=== PATIENT | male | born 1955 | race Caucasian/White ===

== ENCOUNTER 2020-07-06 16:10 | Emergency (ER) | payer OTHER, MEDICARE, BC, SELFPAY ==
--- NOTE | 2020-07-06 16:19 | ED_ITS ---
HPI - Dental/Oral General Chief complaint: Dental/Oral Stated complaint: mouth pain Time Seen by Provider: 07/06/20 16:18 History of Present Illness HPI Narrative: This is 64 years old male came in with mouth pain due to widespread decay of his teeth, patient is pending oral surgery in the next 10 days, patient could not see his dentist who advised him to come to the hospital for further evaluation and antibiotic and pain medication, patient stated that pain has been chronic for multiple months, pain is mix of throbbing and aching in his mouth, described as constant, and severe /, no radiation to the pain. Patient also with a history of COPD and running out of his albuterol patient is asking for prescription of albuterol and patient does not want x-rays or any further evaluation he just needs his prescription and go home. Related Data Previous Rx's Medication Instructions Recorded albuterol sulfate 1 inh INHALATION QID PRN #18 g 07/06/20 amoxicillin 500 mg PO Q8H #20 cap 07/06/20 oxycodone 5 mg PO BID PRN #14 tab 07/06/20 prednisone 20 mg PO BID #10 tab 07/06/20 Allergies Allergy/AdvReac Type Severity Reaction Status Date / Time No Known Allergies Allergy Mild UN Verified 07/06/20 16:20 Review of Systems Review of Systems: All other systems are reviewed and are negative Constitutional: Reports as per HPI and Reports no additional constitutional complaints Eyes: Reports as per HPI and Reports no additional eye complaints Reports system reviewed and no additional complaints, except as documented Cardiovascular: Reports as per HPI and Reports no additional cardiovascular complaints Respiratory: Reports as per HPI and Reports no additional respiratory complaints Gastrointestinal: Reports as per HPI and Reports no additional gastrointestinal complaints Genitourinary: Reports no additional female genitourinary complaints Musculoskeletal: Reports no additional musculoskeletal complaints Skin/Breast: Reports system reviewed and no additional complaints, except as docu Psychiatric: Reports no additional psychiatric complaints Endocrine: Reports no additional endocrine complaints Hematologic/Lymphatic: Reports no additional hematologic/lymphatic complaints Allergic/Immunologic: Reports no additional allergic/immunologic complaints Reports system reviewed and no additional complaints, except as documented and Reports Abnormal speech present [facility] Past Medical History Medical History (Updated 07/06/20 @ 16:31 by Eulalia Shepherd MD) COPD (chronic obstructive pulmonary disease) Pneumonia Pneumothorax Umbilical hernia Social History Social History Alcohol intake: former Smoking Status: Current every day smoker Smoked in Last 30 Days: Yes Use of substances other than those prescribed or required for medical reasons: No Advance Directives: No Advance Directives Information Provided: Yes Physical Exam Vital Signs: Vital Signs: Last Vital Signs Temp 98.0 F 07/06/20 16:21 Pulse 88 07/06/20 16:21 Resp 18 07/06/20 16:21 BP 129/62 07/06/20 16:21 Pulse Ox 98 07/06/20 16:21 Body Mass Index 21.5 Vital signs have been reviewed as normal and appeared to be correct. Blood pressure normal. Heart rate normal. Respiration rate normal. Temperature normal. Oxygen saturation normal. Appearance: Alert. Oriented X3. No acute distress. Head: Normal external exam. Normocephalic. Atraumatic. No Alberto signs noted. No raccoon eyes noted, there is a widespread dental decay, with tenderness over the gum no discrete fluctuation or abscess in the gum. Eyes: PERRLA. EOMI. Conjunctiva and sclera normal. Eyelids normal. ENT: EAC normal. TM's Normal. Pharynx normal. Uvula midline. Moist mucous membranes. No trismus noted. No drooling noted. No muffled voice noted. Neck: Normal inspection. Neck supple. FROM. No adenopathy. Thyroid Normal. No meningeal signs. No neck mass noted. CVS: Normal heart rate and rhythm. Heart sound normal. No murmurs noted. Pulses normal throughout. Respiratory: No respiratory distress. Painless inspiration. Breath sounds normal. Prolonged expiration, positive mild diffuse expiratory wheezes. Chest nontender. No accessory muscle usage noted or decreased air movement noted. Abdomen: Soft and nontender. Bowel sounds normal in all 4 quadrants. No distention noted. No organomegaly noted. No visible injury noted. Back: No CVA tenderness. Full range of motion noted. Skin: Skin warm and dry. Normal skin color. Normal skin turgor. No rashes/lesions/lacerations noted. Extremities: No lower extremity edema. Extremities exhibit normal range of motion. Extremities nontender. Neuro: Oriented X 3. No motor deficit. No sensory deficit. Reflexes normal. MDM - Dental/Oral MDM Narrative Medical decision making narrative: Dental pain due to widespread dental decay, patient is undergoing oral surgery in 10 days required antibiotic and pain medication. Patient also has a longstanding history of COPD exam is consistent with mild COPD exacerbation and patient is running out of his albuterol patient is refusing x-ray or any further evaluation. Discharge Plan Discharge Clinical Impression: Dental infection, Acute exacerbation of chronic obstructive pulmonary disease Patient Disposition: Home, Self-Care Instructions: COPD (Chronic Obstructive Pulmonary Disease) (ED), Gingivostomatitis (ED) Additional Instructions: Follow-up with your dentist in 7 days. Follow-up with your PCP. Prescriptions: New prednisone 20 mg tablet 20 mg PO BID Qty: 10 RF: 0 albuterol sulfate 90 mcg/actuation HFA aerosol inhaler 1 inh inhalation QID PRN (Reason: shortness of breath or wheezing) Qty: 18 RF: 0 amoxicillin 500 mg capsule 500 mg PO Q8H Qty: 20 RF: 0 oxycodone 5 mg tablet 5 mg PO BID PRN (Reason: pain) Qty: 14 RF: 0
[2020-07-06 16:21] VITALS: BP 129/62; BP 158/87; PULSE 88; PULSE 98; RESP 18; TEMP 36.7; O2SAT 98; BMI 21.5
[2020-07-06] MEDS: Amoxicillin 500 MG CAPSULE PO (17:10)
== END 2020-07-06 17:40 | disposition home or self-care (01) ==
LOC: HO.ED 16:38
PROVIDERS: Emergency Provider Emergency Medicine
DX: K04.7 Periapical abscess without sinus (principal); J44.1 Chronic obstructive pulmonary disease with (acute) exacerbation; F17.200 Nicotine dependence, unspecified, uncomplicated; Z71.6 Tobacco abuse counseling; Z79.899 Other long term (current) drug therapy
CPT/HCPCS: 99283

== ENCOUNTER 2020-07-08 12:41 | Emergency (ER) | payer MEDICARE, BC, OTHER, SELFPAY ==
[2020-07-08 12:44] VITALS: BP 150/74; PULSE 120; RESP 30; O2SAT 100; BMI 20.7
--- NOTE | 2020-07-08 13:01 | XR_ITS ---
EXAMINATION: XR CHEST CLINICAL INFORMATION: Shortness of breath COMPARISON: Chest radiographs 10/06/2019, 02/05/2019. TECHNIQUE: Portable upright AP x2 views of the chest was obtained. FINDINGS: There is hyperinflation/COPD. The vascularity is normal. There is no airspace consolidation or definite groundglass opacity. Some minor scarring left lateral base is stable. No pneumothorax or pleural reaction. The heart is normal in size. The hilar and mediastinal contours are normal. No acute bony abnormality. XR/XR chest 1V IMPRESSION: Hyperinflation/COPD. No acute intrathoracic disease.
[2020-07-08] MEDS: Albuterol/Iprat 2.5/0.5MG 3 ML AMPUL.NEB 10 ML INHALE ×2 (13:16→14:47)
[2020-07-08] MEDS: predniSONE 20 MG TABLET 60 MG PO (13:18)
--- NOTE | 2020-07-08 13:23 | ED_ITS ---
HPI - SOB/Dyspnea General Chief Complaint: Dyspnea Stated Complaint: SOB X'S HOURS,NO FEVER Time Seen by Provider: 07/08/20 13:00 Source: EMS Mode of arrival: EMS History of Present Illness HPI Narrative: 64-year-old male with medical history of COPD, pneumonia, pneumothorax, schizophrenia, chronic vertigo, alcohol abuse BIBA for worsening SOB x a few days, found to be 78% on room air on EMS arrival. Patient does not use home O2. Patient reports productive cough, and SOB, refusing IV via EMS and with us, only agreeable to updraft by EMS. Denies CP, fever, chills, exposure to COVID-19 Related Data Previous Rx's Medication Instructions Recorded albuterol sulfate 1 inh INHALATION QID PRN #18 g 07/06/20 amoxicillin 500 mg PO Q8H #20 cap 07/06/20 oxycodone 5 mg PO BID PRN #14 tab 07/06/20 prednisone 20 mg PO BID #10 tab 07/06/20 Allergies Allergy/AdvReac Type Severity Reaction Status Date / Time No Known Allergies Allergy Mild UN Verified 07/06/20 16:20 Review of Systems Review of Systems: Constitutional: No Weight loss, No Fever, No Chills ENT/Mouth: No Nasal Congestion, No Sinus Pain, No Hoarseness, No sore throat, No Swallowing Difficulty Cardiovascular: No Chest Pain, + SOB, +Dyspnea on Exertion Respiratory: +Cough, No Sputum, No Wheezing, +Dyspnea Gastrointestinal: No Nausea, No Vomiting, No Diarrhea, No Constipation, No Abdominal pain Musculoskeletal: No joint pain, No Myalgias, No Joint Swelling Skin: No Skin Lesions, No rash Yes all other systems are reviewed and are negative FOR[facility]LY [facility] Past Medical History Attestation statement: The following information was validated with the patient. Source: old records reviewed and nursing notes reviewed Medical History (Updated 07/07/20 @ 00:04 by Background Danohemi) COPD (chronic obstructive pulmonary disease) Pneumonia Pneumothorax Umbilical hernia Social History Social History Alcohol intake: former Smoking Status: Current every day smoker Use of substances other than those prescribed or required for medical reasons: No Advance Directives: No Advance Directives Information Provided: Yes Physical Exam Vital Signs: Vital Signs: Last Vital Signs Pulse 115 H 07/08/20 16:11 Resp 20 07/08/20 16:11 BP 150/74 H 07/08/20 12:44 Pulse Ox 95 07/08/20 16:11 Body Mass Index 20.7 Const: Other: refusing care General: alert and acute distress severe Orientation/consciousness: patient oriented x3 Limitations: no limitations HENMT: Head: Yes normal to inspection Ears: hearing grossly normal bilaterally General nose exam: Normal external nose present Face and si nus: Yes normal facial exam Eyes: General: appearance normal, both eyes and all related structures EOM: EOMs intact bilaterally Resp: Effort & Inspection: labored, respiratory distress, no stridor, tachypneic and tripod positioning Auscultation: wheezes throughout and diminished lung sounds diffuse Cardio: Rate: tachycardic GI: Inspection: Yes normal to inspection Palpation (GI): Soft to palpation, nontender, no guarding and not rigid : General: Yes no CVA tenderness Back/Spine/Pelvis: Back: no CVA tenderness Skin: Rashes: no rashes Wounds: no wounds Neuro: General: patient oriented x3 Gait exam (Neuro): Normal gait present Extrem: General: Yes normal to inspection and Yes no pedal edema Course Course Course Narrative: -upon arrival to ED would like to place patient on BiPAP, however he is refusing all treatment, refusing IV, pulling face mask off, only requesting water -Case discussed with Dr. Benedict who also evaluated/spoke to patient, patient is A&O x3, not altered, not hypoxic, competent to make own decisions, stressed importance of IV medications/breathing treatment and BIPAP, but patient only agreeable to DuoNeb and resistent to p.o. Prednisone, still refusing all other care. Had to be convinced to take PO Prednisone -1325--patient's speaking on phone with BOX LINING MACHINE OPERATOR/friend, Dr. Benedict spoke with pts friend/BOX LINING MACHINE OPERATOR to try to convince patient to agree to care which was unsuccessful. He has increased/worsening work of breathing, sating 90-93%, tachypneic, retracting, talking in short sentences. Dr. Benedict discussed with patient DNR/DNI status, he stated he does not want chest compressions, does not want to be on a ventilator, and is refusing BIPAP. Patient is aware he can if not treated properly. He stated let him go. Still competent to make his own decisions at this time. > this conversation was discussed with multiple witnesses including myself, and patient's ED nurse -Dr. Benedict spoke with patient's healthcare proxy, Ana Hackett, she read patient's living will, which states patient does not want CPR/to be on a ventilator, and agreeable to comfortable measures even if it shortens his life --6102-patient received 2 hour long DuoNebs, appears more comfortable at present, satting 94-95% on RA, still with accessory muscle use. Better air movement on re-evaluation. Discussed admission with patient which he is not ag reeable to. Discussed will have to sign out AMA, understand that he could if he leaves. Patient already has prescription for prednisone at home from ED evaluation 2 days ago MDM - SOB/Dyspnea MDM Narrative Medical decision making narrative: 64-year-old male with medical history of COPD, pneumonia, pneumothorax, schizophrenia, chronic vertigo, alcohol abuse BIBA for worsening SOB x a few days, found to be 78% on room air on EMS arrival. On exam tachypneic, tachycardic, satting 92-94% on RA/with breathing treatments, decreased breath sounds/diffuse wheezing throughout. Concern for COPD exacerbation vs potential COVID-19 vs pneumonia. Low concern for ACS /CHF Plan: Patient only agreeable to DuoNeb, CXR, and p.o. prednisone Discharge Plan Discharge Prescriptions: No Action prednisone 20 mg tablet 20 mg PO BID Qty: 10 RF: 0 albuterol sulfate 90 mcg/actuation HFA aerosol inhaler 1 inh inhalation QID PRN (Reason: shortness of breath or wheezing) Qty: 18 RF: 0 amoxicillin 500 mg capsule 500 mg PO Q8H Qty: 20 RF: 0 oxycodone 5 mg tablet 5 mg PO BID PRN (Reason: pain) Qty: 14 RF: 0
--- NOTE | 2020-07-08 14:22 | PC.NURSE ---
pt received updraft and chest xray. pt has not been cooperative with medical needs. rn and md have explained to pt need for IV/labs/meds but pt refuses. took PO prednisone. continues, to appear SOB. o2 sat at this time is 94% on room air. will continue to monitor.
[2020-07-08 16:11] VITALS: PULSE 115; RESP 20; O2SAT 95
--- NOTE | 2020-07-08 16:11 | PC.NURSE ---
pt breathing improved, no longer using neck muscles when taking breaths . maintaining o2 sat of 95% room air. pt waiting dispo.
[2020-07-08] MEDS: Albuterol Sulfate (0.083%) 2.5 MG/3 ML VIAL.NEB 5 MG INHALE (16:35)
[2020-07-08 17:36] VITALS: BP 130/54; PULSE 122; RESP 26; O2SAT 96
== END 2020-07-08 18:51 | disposition left against medical advice (07) ==
PROVIDERS: Emergency Provider Emergency Medicine Emergency Medical Services; PCP Emergency Medicine Emergency Medical Services
DX: R50.9 Fever, unspecified (principal); J44.9 Chronic obstructive pulmonary disease, unspecified; Z79.899 Other long term (current) drug therapy; F17.200 Nicotine dependence, unspecified, uncomplicated; Z71.6 Tobacco abuse counseling
CPT/HCPCS: 71045; 94640; 94644; 94645; 99284

== ENCOUNTER → 2021-03-03 14:41 | Outpatient (BNVA) | payer MEDICARE, BC, OTHER, SELFPAY | PROVIDERS: PCP Emergency Medicine Emergency Medical Services; Visit Provider Surgery | DX: K40.90 Unilateral inguinal hernia, without obstruction or gangrene, not specified as recurrent (principal) | CPT/HCPCS: 99202 ==

== ENCOUNTER 2021-03-12 01:18 | Emergency (ER) | payer OTHER, MEDICARE, BC, SELFPAY ==
[2021-03-12 01:41] VITALS: BP 118/92; PULSE 78; RESP 16; TEMP 37.2; O2SAT 97; BMI 25.8
--- NOTE | 2021-03-12 02:13 | ED.ALCOHOL ---
HPI - Alcohol General Chief Complaint: ETOH/Substance Use Stated Complaint: ETOH INTOX,FOUND ON GROUND BY [facility] Time Seen by Provider: 03/12/21 02:13 Source: patient Mode of arrival: EMS History of Present Illness HPI narrative: 65-year-old male with known alcohol dependence as well as COPD and hypertension his brought in by EMS after patient was found sleeping in a parking lot. Patient states that he has had 4 drinks and denies any other current complaints at this time. Related Data Home Medications Medication Instructions Recorded Confirmed benzonatate 100 mg capsule 100 mg PO TID 03/03/21 budesonide-formoterol HFA 160 INHALATION 03/03/21 mcg-4.5 mcg/actuation aerosol inhaler buspirone 7.5 mg tablet 7.5 mg PO BID 03/03/21 folic acid 1 mg tablet 1 mg PO DAILY 03/03/21 gabapentin 100 mg capsule 0 mg PO 03/03/21 hydrochlorothiazide 12.5 mg capsule 12.5 mg PO DAILY 03/03/21 ibuprofen 600 mg tablet 600 mg PO Q6H PRN 03/03/21 potassium chloride 10 mEq 10 meq PO DAILY 03/03/21 tablet,extended release tamsulosin 0.4 mg capsule 0.4 mg PO DAILY 03/03/21 tiotropium bromide 2.5 2 puff INHALATION DAILY 03/03/21 mcg/actuation mist for inhalation Previous Rx's Medication Instructions Recorded albuterol sulfate 1 inh INHALATION QID PRN #18 g 07/06/20 amoxicillin 500 mg PO Q8H #20 cap 07/06/20 oxycodone 5 mg PO BID PRN #14 tab 07/06/20 prednisone 20 mg PO BID #10 tab 07/06/20 Allergies Allergy/AdvReac Type Severity Reaction Status Date / Time No Known Allergies Allergy Mild UN Verified 03/03/21 14:49 Review of Systems Review of Systems: Pertinent positives and negatives as stated in HPI 10 point review of systems is otherwise negative. FORMERLY [facility], [facility] Past Medical History Source: nursing notes reviewed Medical History COPD (chronic obstructive pulmonary disease) Pneumonia Pneumothorax Right inguinal hernia Umbilical hernia Social History Social History Alcohol intake: current Alcohol intake frequency: does not drink Alcohol type: beer Physical Exam Vital Signs: Vital Signs: Last Vital Signs Temp 98.9 F 03/12/21 01:41 Pulse 72 03/12/21 02:56 Resp 18 03/12/21 02:56 BP 110/49 L 03/12/21 02:56 Pulse Ox 96 03/12/21 02:56 Body Mass Index 25.8 VITAL SIGNS: Reviewed. GENERAL: Cachectic, chronic illness, smells of alcohol. HEAD: Normocephalic/atraumatic EYES: PERRLA, EOMI OROPHARYNX: no oral lesions noted, posterior pharynx clear NECK: Supple, no adenopathy LUNGS: Normal breath sounds. No adventitious sounds or accessory muscle use. SpO2<97> CARDIOVASCULAR: Regular rate and rhythm without noted murmurs ABDOMEN: Soft, non-tender, non-distended with bowel sounds. SKIN: Inspection of the skin reveals no rashes NEUROLOGIC: Alert and oriented x 4. Strength and sensation to light touch were grossly intact x 4. Course Course Course Narrative: 65-year-old male with history and clinical presentation consistent with alcohol intoxication, but does have history of COPD. Review of all investigations otherwise without acute findings and on re-evaluation patient is found to be clinically sober and has a safe ride from a friend. He was discharged in stable condition. MDM - Alcohol Lab Data Result diagrams: 03/12/21 02:48 03/12/21 02:48 Labs: Lab Results 03/12/21 03/12/21 03/12/21 Range/Units 02:48 02:48 02:48 WBC 11.9 H (4.8-10.8) X10*3/uL RBC 4.07 L (4.60-5.80) X10*6/uL Hgb 13.3 L (14.0-18.0) g/dl Hct 37.5 L (42-52) % MCV 92.1 (80-98) fL MCH 32.7 (27.0-33.0) pg MCHC 35.5 (31.0-36.0) g/dl RDW 13.6 (11.0-16.0) % Plt Count 273 (160-400) X10*3/uL MPV 8.9 L (9.4-12.4) fL Immature Gran % (Auto) 0.5 H (0.0-0.4) % Neut % (Auto) 69.2 (45-73) % Lymph % (Auto) 21.7 (20-40) % Baca % (Auto) 6.1 (2-11) % Eos % (Auto) 2.0 (0-4) % Baso % (Auto) 0.5 (0-2) % Lymph # (Auto) 2.6 (1.2-4.9) X10*3/uL [place] # (Auto) 0.7 (0.1-1.2) X10*3/uL Eos # (Auto) 0.2 (0.0-0.4) X10*3/uL Baso # (Auto) 0.1 (0.0-0.2) X10*3/uL Abs Immat Gran (auto) 0.06 H (0.00-0.03) X10*3/uL Absolute Neuts (auto) 8.2 (2.0-8.3) X10*3/uL Absolute Nucleated RBC 0.000 (0.0-0.012) X10*3/uL Nucleated RBC % (auto) 0.0 (0.0-0.2) /100WBC VBG pH (7.32-7.43) VBG pCO2 mmHg VBG pO2 mmHg VBG HCO3 (22-26) mmol/L VBG O2 Saturation % VBG Base Excess mmol/L Sodium 133 L (135-145) mmol/L Potassium 3.9 (3.3-5.1) mmol/L Chloride 101 (96-108) mmol/L Carbon Dioxide 21 L (22-29) mmol/L Anion Gap 15 (12-20) BUN 4 L (9-16) mg/dL Creatinine 0.70 (0.5-1.4) mg/dL Estim Creat Clear Calc 92.4 Estimated GFR > 60 Random Glucose 98 (60-115) mg/dL Calcium 8.6 (8.4-10.2) mg/dL Total Bilirubin 0.4 (0.0-1.0) mg/dL AST 20 (5-37) U/L ALT 15 (0-40) U/L Alkaline Phosphatase 99 (39-117) U/L Total Protein 5.8 L (6.5-8.0) g/dL Albumin 3.5 (3.5-5.0) g/dL Ethyl Alcohol mg/dL COVID-19 ([facility]) Negative (Negative) COVID-19 Clin Com See Note 03/12/21 03/12/21 Range/Units 02:48 02:51 WBC (4.8-10.8) X10*3/uL RBC (4.60-5.80) X10*6/uL Hgb (14.0-18.0) g/dl Hct (42-52) % MCV (80-98) fL MCH (27.0-33.0) pg MCHC (31.0-36.0) g/dl RDW (11.0-16.0) % Plt Count (160-400) X10*3/uL MPV (9.4-12.4) fL Immature Gran % (Auto) (0.0-0.4) % Neut % (Auto) (45-73) % Lymph % (Auto) (20-40) % Baca % (Auto) (2-11) % Eos % (Auto) (0-4) % Baso % (Auto) (0-2) % Lymph # (Auto) (1.2-4.9) X10*3/uL [place] # (Auto) (0.1-1.2) X10*3/uL Eos # (Auto) (0.0-0.4) X10*3/uL Baso # (Auto) (0.0-0.2) X10*3/uL Abs Immat Gran (auto) (0.00-0.03) X10*3/uL Absolute Neuts (auto) (2.0-8.3) X10*3/uL Absolute Nucleated RBC (0.0-0.012) X10*3/uL Nucleated RBC % (auto) (0.0-0.2) /100WBC VBG pH 7.43 (7.32-7.43) VBG pCO2 29 mmHg VBG pO2 203 mmHg VBG HCO3 20 L (22-26) mmol/L VBG O2 Saturation 99.0 % VBG Base Excess -2.9 mmol/L Sodium (135-145) mmol/L Potassium (3.3-5.1) mmol/L Chloride (96-108) mmol/L Carbon Dioxide (22-29) mmol/L Anion Gap (12-20) BUN (9-16) mg/dL Creatinine (0.5-1.4) mg/dL Estim Creat Clear Calc Estimated GFR Random Glucose (60-115) mg/dL Calcium (8.4-10.2) mg/dL Total Bilirubin (0.0-1.0) mg/dL AST (5-37) U/L ALT (0-40) U/L Alkaline Phosphatase (39-117) U/L Total Protein (6.5-8.0) g/dL Albumin (3.5-5.0) g/dL Ethyl Alcohol 270 mg/dL COVID-19 ([facility]) (Negative) COVID-19 Clin Com Discharge Plan Discharge Clinical Impression: Alcohol intoxication Patient Disposition: Home, Self-Care Instructions: Alcohol Intoxication (ED) Additional Instructions: Return to the ER for acute worsening of symptoms. Prescriptions: No Action prednisone 20 mg tablet 20 mg PO BID Qty: 10 RF: 0 albuterol sulfate 90 mcg/actuation HFA aerosol inhaler 1 inh inhalation QID PRN (Reason: shortness of breath or wheezing) Qty: 18 RF: 0 amoxicillin 500 mg capsule 500 mg PO Q8H Qty: 20 RF: 0 oxycodone 5 mg tablet 5 mg PO BID PRN (Reason: pain) Qty: 14 RF: 0 benzonatate 100 mg capsule 100 mg PO TID RF: 0 budesonide-formoterol 160-4.5 mcg/actuation HFA aerosol inhaler inhalation RF: 0 Spiriva Respimat 2.5 mcg/actuation mist 2 puff inhalation DAILY RF: 0 potassium chloride 10 mEq tablet extended release 10 meq PO DAILY RF: 0 gabapentin 100 mg capsule 0 mg PO RF: 0 folic acid 1 mg tablet 1 mg PO DAILY RF: 0 hydrochlorothiazide 12.5 mg capsule 12.5 mg PO DAILY RF: 0 tamsulosin 0.4 mg capsule 0.4 mg PO DAILY RF: 0 buspirone 7.5 mg tablet 7.5 mg PO BID RF: 0 ibuprofen 600 mg tablet 600 mg PO Q6H PRNRF: 0
[2021-03-12 02:55] LABS: MANUAL DIFF FLAG NO
[2021-03-12 02:56] VITALS: BP 110/49; PULSE 72; RESP 18; O2SAT 96
[2021-03-12 02:56] LABS: Basophils Absolute Auto 0.1 X10*3/uL (0.0-0.2); Basophils Percent Auto 0.5 % (0-2); Eosinophils Absolute Auto 0.2 X10*3/uL (0.0-0.4); Hematocrit 37.5 % (42-52); Hemoglobin 13.3 g/dl (14.0-18.0); Imm Gran Abs Auto 0.06 X10*3/uL (0.00-0.03); Imm Gran Pct Auto 0.5 % (0.0-0.4); Lymphocytes Absolute Auto 2.6 X10*3/uL (1.2-4.9); Lymphocytes Percent Auto 21.7 % (20-40); Mean Corpuscular HGB Conc 35.5 g/dl (31.0-36.0); Mean Corpuscular Hemoglobin 32.7 pg (27.0-33.0); Mean Corpuscular Volume 92.1 fL (80-98); Mean Platelet Volume 8.9 fL (9.4-12.4); Monocytes Absolute Auto 0.7 X10*3/uL (0.1-1.2); Monocytes Percent Auto 6.1 % (2-11); Neutrophils Absolute Auto 8.2 X10*3/uL (2.0-8.3); Neutrophils Percent Auto 69.2 % (45-73); Platelet Count 273 X10*3/uL (160-400); Red Blood Count 4.07 X10*6/uL (4.60-5.80); Red Cell Distribution Width 13.6 % (11.0-16.0); White Blood Count 11.9 X10*3/uL (4.8-10.8)
[2021-03-12 03:00] LABS: Venous Blood Gas Refer to POC result
[2021-03-12 03:00] LABS: VBG Base Excess -2.9 mmol/L; VBG HCO3 20 mmol/L (22-26); VBG pCO2 29 mmHg; VBG pH 7.43 (7.32-7.43); VBG pO2 203 mmHg
[2021-03-12 03:22] LABS: Ethanol 270 mg/dL
[2021-03-12 03:23] LABS: COVID-19 Test Negative (Negative)
[2021-03-12 03:27] LABS: Alanine Aminotransferase 15 U/L (0-40); Albumin Level 3.5 g/dL (3.5-5.0); Alkaline Phosphatase 99 U/L (39-117); Anion Gap 15 (12-20); Aspartate Amino Transferase 20 U/L (5-37); Bilirubin Total 0.4 mg/dL (0.0-1.0); Blood Urea Nitrogen 4 mg/dL (9-16); Calcium 8.6 mg/dL (8.4-10.2); Carbon Dioxide 21 mmol/L (22-29); Chloride 101 mmol/L (96-108); Creatinine Clr Calc Pharmacy 92.4; Estimated Glomerular Filt Rate > 60; Glucose Random 98 mg/dL (60-115); Potassium 3.9 mmol/L (3.3-5.1); Sodium 133 mmol/L (135-145); Total Protein 5.8 g/dL (6.5-8.0)
== END 2021-03-12 06:26 | disposition home or self-care (01) ==
LOC: HO.ED 06:20
PROVIDERS: Emergency Provider Student in an Organized Health Care Education/Training Program
DX: F10.229 Alcohol dependence with intoxication, unspecified (principal); Y90.8 Blood alcohol level of 240 mg/100 ml or more; J44.9 Chronic obstructive pulmonary disease, unspecified; I10 Essential (primary) hypertension; Z79.899 Other long term (current) drug therapy; Z20.822 Contact with and (suspected) exposure to COVID-19
CPT/HCPCS: 36415; 80053; 82077; 82803; 85025; 87635; 99284

== ENCOUNTER 2021-03-18 07:08 | Emergency (ER) | payer OTHER, SELFPAY ==
[2021-03-18] VITALS (9 sets, daily range): BP systolic 158–166; BP diastolic 63–71; PULSE 80–111; RESP 16–25; O2SAT 92–98; BMI 17.7
--- NOTE | ~2021-03-18 | CT_ITS ---
EXAMINATION: CT KNEE WITHOUT CONTRAST, LEFT CLINICAL INFORMATION: Left tibia-fibula radiographs, same day. COMPARISON: Left knee radiographs TECHNIQUE:A spiral CT scan of the left knee was obtained without administration of IV contrast. Contiguous transverse, coronal and sagittal images were reconstructed. This CT examination was performed using dose optimization techniques as appropriate, variously including the following: * Automated exposure control * Adjustment of mA and/or kV according to patient size (this includes techniques or standardized protocols for targeted exams where dose is matched to indication/reason for exam; i.e. extremities or head) * Use of iterative reconstruction technique FINDINGS: Left knee is imaged in flexion. There is comminuted fracture of the tibial tuberosity. There is a gap of approximately 5 mm at the fracture site (5:79) secondary to distraction at the fracture site. At the medial margin of the transverse component of the comminuted tibial tuberosity fracture line, there is extension of obliquely oriented nondisplaced fracture line along the medial cortex of the proximal tibia extending from anterior to posterior (5:62-78). The knee is approximated. The patella is approximated. Proximal tibiofibular joint is approximated. Bones are osteopenic. No soft tissue gas. No soft tissue collection. ACL and PCL are grossly intact. Extensor mechanism appears intact. Menisci are poorly characterized. Given flexion of the knee MRI may be considered to evaluate for meniscal injury. Mild vascular calcifications. CT/CT knee LT wo con IMPRESSION: Left knee: Distracted comminuted fracture through the tibial tuberosity with extension of nondisplaced fracture line along the medial cortex of the proximal tibia extending anterior to posterior. Osteopenia. Flexion of the knee. No knee joint effusion. Vascular calcifications.
--- NOTE | ~2021-03-18 | XR_ITS ---
EXAMINATION: LEFT TIBIA AND FIBULA. CLINICAL INFORMATION: Uneventful to move leg. History of fall. COMPARISON: None TECHNIQUE: 2 views left tibia and fibula. 1 new left knee FINDINGS: There is mildly displaced fracture anterior tibial tuberosity with mild anterior soft tissue swelling.. No additional fractures seen involving tibia and fibula. Ankle mortise and subtalar joints are normal. Left knee: There is no abnormal joint effusion. There is fracture anterior tibial tubercle. The distal femur and the patella is normal with a small anterior superior patellar enthesophyte. XR/XR tibia fibula LT 2V IMPRESSION: Mildly displaced fracture anterior tibial tubercle. There is mild soft tissue swelling. No additional fractures seen. No abnormal knee joint effusion or fracture involving the distal femur or patella. There is anterior superior patellar enthesophyte.
--- NOTE | ~2021-03-18 | XR_ITS ---
EXAMINATION: LEFT TIBIA AND FIBULA. CLINICAL INFORMATION: Uneventful to move leg. History of fall. COMPARISON: None TECHNIQUE: 2 views left tibia and fibula. 1 new left knee FINDINGS: There is mildly displaced fracture anterior tibial tuberosity with mild anterior soft tissue swelling.. No additional fractures seen involving tibia and fibula. Ankle mortise and subtalar joints are normal. Left knee: There is no abnormal joint effusion. There is fracture anterior tibial tubercle. The distal femur and the patella is normal with a small anterior superior patellar enthesophyte. XR/XR knee LT 2V IMPRESSION: Mildly displaced fracture anterior tibial tubercle. There is mild soft tissue swelling. No additional fractures seen. No abnormal knee joint effusion or fracture involving the distal femur or patella. There is anterior superior patellar enthesophyte.
--- NOTE | ~2021-03-18 | CT_ITS ---
EXAMINATION: CT HEAD/BRAIN WITHOUT CONTRAST CLINICAL INFORMATION: Trauma COMPARISON: December 24, 2007 and cervical spine of February 05, 2019 TECHNIQUE: CT scanning from base of skull to vertex performed without IV contrast administration. This CT examination was performed using dose optimization techniques as appropriate, variously including the following: *Automated exposure control *Adjustment of mA and/or kV according to patient size (this includes techniques or standardized protocols for targeted exams where dose is matched to indication/reason for exam; i.e. extremities or head) *Use of iterative reconstruction technique DLP: 687 mGy-cm. FINDINGS: There is motion artifact present degrading study. There is mild prominence of the ventricles, sulci, and cisterns. No abnormal extra-axial fluid collection or intracranial hemorrhage is seen. No significant mass effect or midline structure shift is evident. There is a large amount of periventricular white matter low density consistent with microangiopathy. CT/CT cervical spine wo con IMPRESSION: No acute intracranial abnormality. 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 EXAMINATION: CT OF THE CERVICAL SPINE CLINICAL INFORMATION: Trauma COMPARISON: February 05, 2019. TECHNIQUE: Thin helical images with sagittal and coronal reformats. This CT examination was performed using dose optimization techniques as appropriate, variously including the following: *Automated exposure control *Adjustment of mA and/or kV according to patient size (this includes techniques or standardized protocols for targeted exams where dose is matched to indication/reason for exam; i.e. extremities or head) *Use of iterative reconstruction technique DOSE: DLP 687 mGy-cm FINDINGS: There is motion artifact present degrading study. The vertebral alignment is normal. The atlantoaxial and atlanto-occipital articulations are normal. No fracture. No intrinsic bony abnormality. No abnormal prevertebral soft tissue swelling. Paraspinal muscle planes intact. There is significant cervical spondylosis C3-C7 with disc space narrowing marginal sclerosis and prominent spurring. There is 2 mm subluxation of C2 anterior to C3 however this may be related to some degree of motion artifact. There is also some anterior subluxation of C6 on this C5 which may be related to motion artifact as well. There is spurring of the joints of [place] causing some anterior neural foraminal encroachment at the C5-C6 and C6-C7 levels bilaterally There are emphysematous changes seen within the apices bilaterally. Carotid artery calcification present. There is degenerative change of the left temporomandibular joint. Pterygoid plates intact. IMPRESSION: No acute cervical spine fracture. Significant cervical spondylosis C3-C7.
--- NOTE | 2021-03-18 07:33 | ED.FALL ---
HPI - Fall General Chief Complaint: ETOH/Substance Use Stated Complaint: fall last night, left knee pain Time Seen by Provider: 03/18/21 07:31 History of Present Illness HPI Narrative: Patient is a 65-year-old male positive history of ETOH. Patient fell after drinking. Complaining of pain to the left knee. Question if he hit his head. Also coughing upper respiratory symptoms. Patient has a long history of smoking. Had not had his coronavirus vaccine. No focal weakness. No chest pain. No diaphoresis. Positive history of COPD. Long history of smoking. No chest pain Related Data Home Medications Medication Instructions Recorded Confirmed benzonatate 100 mg capsule 100 mg PO TID 03/03/21 03/18/21 budesonide-formoterol HFA 160 2 puff INHALATION BID 03/03/21 03/18/21 mcg-4.5 mcg/actuation aerosol inhaler folic acid 1 mg tablet 1 mg PO DAILY 03/03/21 03/18/21 gabapentin 100 mg capsule 100 mg PO BID 03/03/21 03/18/21 tamsulosin 0.4 mg capsule 0.4 mg PO DAILY 03/03/21 03/18/21 tiotropium bromide 2.5 2 puff INHALATION DAILY 03/03/21 03/18/21 mcg/actuation mist for inhalation acamprosate 333 mg PO TID 03/18/21 03/18/21 acetaminophen 500 mg PO TID PRN 03/18/21 03/18/21 baclofen 1 tab PO QID 03/18/21 03/18/21 buspirone 7.5 mg PO BID 03/18/21 03/18/21 clotrimazole 1 appl TOPICAL BID 03/18/21 03/18/21 cyanocobalamin (vitamin B-12) 500 mcg PO BID 03/18/21 03/18/21 docusate sodium 100 mg PO DAILY PRN 03/18/21 03/18/21 guaifenesin 600 mg PO BID 03/18/21 03/18/21 hydroxyzine HCl 10 mg PO DAILY PRN 03/18/21 03/18/21 olanzapine 10 mg PO BEDTIME 03/18/21 03/18/21 psyllium 1 tsp PO DAILY 03/18/21 03/18/21 thiamine HCl (vitamin B1) 100 mg PO DAILY 03/18/21 03/18/21 trazodone 100 mg PO BEDTIME PRN 03/18/21 03/18/21 Previous Rx's Medication Instructions Recorded albuterol sulfate 1 inh INHALATION QID PRN #18 g 07/06/20 Allergies Allergy/AdvReac Type Severity Reaction Status Date / Time No Known Allergies Allergy Mild UN Verified 03/03/21 14:49 Review of Systems Review of Systems: Positive coughing upper respiratory symptoms Positive pain to the left knee PMFSH Past Medical History Attestation statement: The following information was validated with the patient. Medical History COPD (chronic obstructive pulmonary disease) Pneumonia Pneumothorax Right inguinal hernia Umbilical hernia Social History Social History Alcohol intake: current Alcohol intake frequency: a few times a week Alcohol type: beer Use of substances other than those prescribed or required for medical reasons: Unable to respond Advance Directives: Yes Advance Directives Information Provided: Yes Advance Directives on File: No Physical Exam Vital Signs: Vital Signs: Last Vital Signs Pulse 96 03/18/21 12:33 Resp 20 03/18/21 12:33 BP 166/71 H 03/18/21 12:33 Pulse Ox 94 03/18/21 12:33 Body Mass Index 17.7 Appearance: Alert. Oriented X3. No acute distress. Eyes: Pupils equal, round and reactive to light. ENT: Pharynx normal. Neck: Normal inspection. Neck supple. No lymph nodes noted. No crepitus. No posterior C-spine tenderness elicited on palpation. CVS: Normal heart rate and rhythm. Pulses normal. Normal S1 and S2 Respiratory: No respiratory distress. Breath sounds normal. No Wheezing. No rales Abdomen: Soft and nontender. No rigidity. No distention. good BS x4 Skin: Positive swelling to the left knee limited range of motion Extremities: No lower extremity edema. Neurovascular intact to all extremities. No Lacerations. No Rash Neuro: Oriented X 3. No motor deficit. No sensory deficit. Moving all extermities. No slurred speech MDM - Fall MDM Narrative Medical decision making narrative: Accidental fall while patient was intoxicated. X-rays showed in tibial tuberosity fracture. Patient unable to get excellent films a CT scan was done. It showed approximately the same. The x-rays reviewed by Orthopedics. Weightbear as tolerated. Patient is to be placed in a knee immobilizer. Patient has a long history of alcohol abuse. Lives alone. Will need additional help. Physical therapy consulted case management consulted. Patient will need to be placed in a rehab unit. After discussing with Orthopedics patient is to follow up with Dr. Mendiola in approximately 1 week. Lab Data Result diagrams: 03/18/21 12:31 03/18/21 12:31 Labs: Lab Results 03/18/21 03/18/21 03/18/21 Range/Units 12:31 12:31 12:31 WBC 13.0 H (4.8-10.8) X10*3/uL RBC 4.31 L (4.60-5.80) X10*6/uL Hgb 13.9 L (14.0-18.0) g/dl Hct 39.9 L (42-52) % MCV 92.6 (80-98) fL MCH 32.3 (27.0-33.0) pg MCHC 34.8 (31.0-36.0) g/dl RDW 13.7 (11.0-16.0) % Plt Count 271 (160-400) X10*3/uL MPV 9.2 L (9.4-12.4) fL Immature Gran % (Auto) 0.4 (0.0-0.4) % Neut % (Auto) 75.7 H (45-73) % Lymph % (Auto) 15.2 L (20-40) % [place] % (Auto) 6.2 (2-11) % Eos % (Auto) 2.0 (0-4) % Baso % (Auto) 0.5 (0-2) % Lymph # (Auto) 2.0 (1.2-4.9) X10*3/uL [place] # (Auto) 0.8 (0.1-1.2) X10*3/uL Eos # (Auto) 0.3 (0.0-0.4) X10*3/uL Baso # (Auto) 0.1 (0.0-0.2) X10*3/uL Abs Immat Gran (auto) 0.05 H (0.00-0.03) X10*3/uL Absolute Neuts (auto) 9.9 H (2.0-8.3) X10*3/uL Absolute Nucleated RBC 0.000 (0.0-0.012) X10*3/uL Nucleated RBC % (auto) 0.0 (0.0-0.2) /100WBC Sodium 137 (135-145) mmol/L Potassium 4.1 (3.3-5.1) mmol/L Chloride 106 (96-108) mmol/L Carbon Dioxide 22 (22-29) mmol/L Anion Gap 13 (12-20) BUN 5 L (9-16) mg/dL Creatinine 0.69 (0.5-1.4) mg/dL Estim Creat Clear Calc 79.9 Estimated GFR > 60 Random Glucose 89 (60-115) mg/dL Calcium 8.7 (8.4-10.2) mg/dL Ethyl Alcohol mg/dL COVID-19 ([facility]) Negative (Negative) COVID-19 Clin Com See Note 03/18/21 Range/Units 12:31 WBC (4.8-10.8) X10*3/uL RBC (4.60-5.80) X10*6/uL Hgb (14.0-18.0) g/dl Hct (42-52) % MCV (80-98) fL MCH (27.0-33.0) pg MCHC (31.0-36.0) g/dl RDW (11.0-16.0) % Plt Count (160-400) X10*3/uL MPV (9.4-12.4) fL Immature Gran % (Auto) (0.0-0.4) % Neut % (Auto) (45-73) % Lymph % (Auto) (20-40) % [place] % (Auto) (2-11) % Eos % (Auto) (0-4) % Baso % (Auto) (0-2) % Lymph # (Auto) (1.2-4.9) X10*3/uL [place] # (Auto) (0.1-1.2) X10*3/uL Eos # (Auto) (0.0-0.4) X10*3/uL Baso # (Auto) (0.0-0.2) X10*3/uL Abs Immat Gran (auto) (0.00-0.03) X10*3/uL Absolute Neuts (auto) (2.0-8.3) X10*3/uL Absolute Nucleated RBC (0.0-0.012) X10*3/uL Nucleated RBC % (auto) (0.0-0.2) /100WBC Sodium (135-145) mmol/L Potassium (3.3-5.1) mmol/L Chloride (96-108) mmol/L Carbon Dioxide (22-29) mmol/L Anion Gap (12-20) BUN (9-16) mg/dL Creatinine (0.5-1.4) mg/dL Estim Creat Clear Calc Estimated GFR Random Glucose (60-115) mg/dL Calcium (8.4-10.2) mg/dL Ethyl Alcohol 43 mg/dL COVID-19 ([facility]) (Negative) COVID-19 Clin Com Discharge Plan Discharge Clinical Impression: Avulsion fracture of tuberosity of tibia, Alcohol intoxication Prescriptions: No [facility] albuterol sulfate 90 mcg/actuation HFA aerosol inhaler 1 inh inhalation QID PRN (Reason: shortness of breath or wheezing) Qty: 18 RF: 0 hydroxyzine HCl 10 mg tablet 10 mg PO DAILY PRN (Reason: Anxiety) RF: 0 guaifenesin 600 mg Tablet Extended Release 600 mg PO BID RF: 0 acetaminophen 500 mg Tablet 500 mg PO TID PRN (Reason: Pain) RF: 0 cyanocobalamin (vitamin B-12) 500 mcg Tablet 500 mcg PO BID RF: 0 psyllium Powder 1 tsp PO DAILY RF: 0 trazodone 100 mg Tablet 100 mg PO BEDTIME PRN (Reason: Insomnia) RF: 0 baclofen 10 mg tablet 1 tab PO QID RF: 0 buspirone 7.5 mg Tablet 7.5 mg PO BID RF: 0 docusate sodium 100 mg Tablet 100 mg PO DAILY PRN (Reason: Constipation) RF: 0 acamprosate 333 mg Tablet,Delayed Release (Dr/Ec) 333 mg PO TID RF: 0 clotrimazole 1 % Solution 1 appl TOPICAL BID RF: 0 thiamine HCl (vitamin B1) 100 mg Tablet 100 mg PO DAILY RF: 0 olanzapine 10 mg Tablet 10 mg PO BEDTIME RF: 0 benzonatate 100 mg capsule 100 mg PO TID RF: 0 budesonide-formoterol 160-4.5 mcg/actuation HFA aerosol inhaler 2 puff inhalation BID RF: 0 Spiriva Respimat 2.5 mcg/actuation mist 2 puff inhalation DAILY RF: 0 gabapentin 100 mg capsule 100 mg PO BID RF: 0 folic acid 1 mg tablet 1 mg PO DAILY RF: 0 tamsulosin 0.4 mg capsule 0.4 mg PO DAILY RF: 0
--- NOTE | 2021-03-18 07:59 | PC.NURSE ---
patient refusing labs and COVID test at this time. dr lemus.
--- NOTE | 2021-03-18 10:19 | PC.NURSE ---
pt continues to refuse lab work at this time, frequently yelling out at staff for needs.
[2021-03-18 12:36] LABS: MANUAL DIFF FLAG NO
[2021-03-18 12:38] LABS: Basophils Absolute Auto 0.1 X10*3/uL (0.0-0.2); Basophils Percent Auto 0.5 % (0-2); Eosinophils Absolute Auto 0.3 X10*3/uL (0.0-0.4); Hematocrit 39.9 % (42-52); Hemoglobin 13.9 g/dl (14.0-18.0); Imm Gran Abs Auto 0.05 X10*3/uL (0.00-0.03); Imm Gran Pct Auto 0.4 % (0.0-0.4); Lymphocytes Percent Auto 15.2 % (20-40); Mean Corpuscular HGB Conc 34.8 g/dl (31.0-36.0); Mean Corpuscular Hemoglobin 32.3 pg (27.0-33.0); Mean Corpuscular Volume 92.6 fL (80-98); Mean Platelet Volume 9.2 fL (9.4-12.4); Monocytes Absolute Auto 0.8 X10*3/uL (0.1-1.2); Monocytes Percent Auto 6.2 % (2-11); Neutrophils Absolute Auto 9.9 X10*3/uL (2.0-8.3); Neutrophils Percent Auto 75.7 % (45-73); Platelet Count 271 X10*3/uL (160-400); Red Blood Count 4.31 X10*6/uL (4.60-5.80); Red Cell Distribution Width 13.7 % (11.0-16.0)
[2021-03-18 12:52] LABS: COVID-19 Test Negative (Negative); IDNOW Serial# 9DD0AD1C
--- NOTE | 2021-03-18 12:55 | PC.NURSE ---
Addendum entered by Tsering Mccullough 03/18/21 12:57: knee immobilizer placed on patient left leg. Original Note: patient agreeable to have labs drawn, labs drawn by this RN. patient had episode of SOB, requesting to use his inhaler, used an symptoms improved. talked to patient and explained that he can not be dc home safely and most likely will need placement. case management aware. patient agreeable.
[2021-03-18 13:02] LABS: Ethanol 43 mg/dL
[2021-03-18 13:04] LABS: Anion Gap 13 (12-20); Blood Urea Nitrogen 5 mg/dL (9-16); Calcium 8.7 mg/dL (8.4-10.2); Carbon Dioxide 22 mmol/L (22-29); Chloride 106 mmol/L (96-108); Creatinine Clr Calc Pharmacy 79.9; Estimated Glomerular Filt Rate > 60; Glucose Random 89 mg/dL (60-115); Potassium 4.1 mmol/L (3.3-5.1); Sodium 137 mmol/L (135-145)
[2021-03-18] MEDS: HYDROmorphone HCl 0.5 MG/0.5 ML SYRINGE IM (14:40)
--- NOTE | 2021-03-18 14:56 | PHA.MEDREC ---
Pharmacy Consult ? Medication Reconciliation Pharmacy has completed the medication reconciliation. There are no remarkable issues for provider's attention. Medication list verified with [place] [facility]. Regla Arceo, JoseD
--- NOTE | 2021-03-18 16:47 | MHC.CM.ED ---
CM met with pt. Pt is thin and well kept. Pt speaks in a loud voice with short, to the point sentences. Pt lives in hotel with room mate. [facility], and [employer] and [employer]. Pt not sure what provides the [employer] or meals on wheels. Pt has a tibial avulsion fx. Pt has pending PT evaluation for STR. Pt has [facility] insurance/ Medicare and care at [place]. Call to Misa Solares, critical care rn of the [place] to determine services eligibility, message left. Expect return call in the am/ Pt is requesting [facility] if STR is recommended. Referral pending [facility] eligibility. D/C plan is STR. Transportation by wheelchair van. CM will follow for d/c needs.
[2021-03-18] MEDS: Baclofen 10 MG TABLET PO ×2 (17:12→20:01)
[2021-03-18] MEDS: busPIRone HCl 5 MG TABLET 7.5 MG PO (17:12)
[2021-03-18 19:36] LABS: Glucose Urine UA NEG (NEG); Leukocyte Esterase Urine NEG (NEG); Nitrite Urine NEG (NEG); PH 6.5 (5.0-8.0); Urine Blood NEG (NEG); Urine Ketones 15 MG/DL (NEG); Urine Protein NEG (NEG-TRACE)
[2021-03-18 19:39] LABS: Appearance Urine CLEAR; Color Urine YELLOW
[2021-03-18] MEDS: oxyCODONE HCl Immed Release 5 MG TABLET PO (19:55)
[2021-03-18] MEDS: Benzonatate 100 MG CAPSULE PO (20:01)
[2021-03-18] MEDS: guaiFENesin LA 600 MG TAB.ER.12H PO (20:01)
[2021-03-18] MEDS: Gabapentin 100 MG CAPSULE PO (20:01)
[2021-03-18] MEDS: Docusate Sodium 100 MG CAPSULE PO (21:58)
[2021-03-18] MEDS: Cyanocobalamin (Vitamin B-12) 500 MCG TABLET PO (21:59)
[2021-03-18] MEDS: OLANZapine 10 MG TABLET PO (21:59)
--- NOTE | 2021-03-18 22:33 | PC.NURSE ---
pt requesting pain meds for pain in left leg. (Jak) notified. no new orders at this time as patient is not due for next dose of pain meds at this time when this nurse went back to inform patient of when next dose can be given, pt asleep in recliner chair. no distress noted at this time. call mcgraw in reach.
[2021-03-18] MEDS: LORazepam 1 MG TABLET PO (23:53)
[2021-03-19] VITALS (8 sets, daily range): BP systolic 139–158; BP diastolic 62–68; PULSE 75–106; RESP 16–22; TEMP 36.8; O2SAT 95–100
[2021-03-19] MEDS: oxyCODONE HCl Immed Release 5 MG TABLET PO ×4 (04:08→23:28)
[2021-03-19] MEDS: Albuterol Sulfate 90 MCG 8 GM INHALER 1 PUFF INHALE (04:09)
--- NOTE | 2021-03-19 04:12 | PC.NURSE ---
pt awake using bedside urinal, requesting pain medication for 9/10 left leg pain and albuterol for wheezing/shortness of breath. pt reminded to keep nasal cannula on. prn oxycodone given per OCT prn albuterol given per OCT warm blanket also given, call mcgraw in reach. no distress noted at this time.
[2021-03-19] MEDS: Folic Acid 1 MG TABLET PO (09:10)
[2021-03-19] MEDS: guaiFENesin LA 600 MG TAB.ER.12H PO ×2 (09:10→20:34)
[2021-03-19] MEDS: Gabapentin 100 MG CAPSULE PO ×2 (09:10→20:34)
[2021-03-19] MEDS: Baclofen 10 MG TABLET PO (09:10)
[2021-03-19] MEDS: Thiamine HCL 100 MG TABLET PO (09:11)
[2021-03-19] MEDS: busPIRone HCl 5 MG TABLET 7.5 MG PO ×2 (09:11→20:35)
[2021-03-19] MEDS: Benzonatate 100 MG CAPSULE PO ×3 (09:11→20:34)
--- NOTE | 2021-03-19 10:25 | PC.NURSE ---
pt assisted back into stretcher, able to move around w stand by assist, one assist used to reposition self in bed. pt appears brash, speaks very loudly in conversation. otherwise cooperative w care. assisted moving personal effects to bedside as well as assisted pt in using cell phone. wctm for dc needs.
[2021-03-19] MEDS: Acetaminophen 325 MG TABLET PO ×2 (11:56→16:17)
--- NOTE | 2021-03-19 15:54 | PC.NURSE ---
pt medication appears to have been misplaced. pt appears to have had documented medication administrations of hs med, med was approved by pharmacy and returned. pt does not seems to have medication available at bedside, thinks it may have been misplaced over night.
--- NOTE | 2021-03-19 19:31 | PC.NURSE ---
REPORT TAKEN FROM RAFAEL WARNER, FIRST CONTACT WITH PT, PT RESTING IN BED SKIN PWD RESPIRATIONS EVEN UNLABORED. IMMBOLIZER INTACT TO LLE. +CMS. CM BEDSEARCH CONTINUES.
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
--- NOTE | 2021-03-19 20:14 | PC.NURSE ---
CHANG DYE TANK TENDER AT BEDSIDE TO UPDATE PT ON STATUS.CALL OUT TO SISTER- HCP TO DISCUSS PLACEMENT. AWAITING CALLABCK, IF NO RESPONSE CM WILL PROCEED WITH REFERRALS.
[2021-03-19] MEDS: OLANZapine 10 MG TABLET PO (20:34)
[2021-03-19] MEDS: Cyanocobalamin (Vitamin B-12) 500 MCG TABLET PO (20:35)
[2021-03-19] MEDS: Tamsulosin HCL 0.4 MG CAPSULE PO (20:35)
--- NOTE | 2021-03-19 21:08 | MHC.CM.ED ---
CM placed 10 referrals locally, as HCP did not return call and pt will not participate in choices. Will wait for bed offer and present to pt for acceptance. CM to follow for d/c needs.
[2021-03-19] MEDS: Albuterol Sulfate (0.083%) 2.5 MG/3 ML VIAL.NEB INHALE (23:46)
--- NOTE | 2021-03-20 00:32 | PC.NURSE ---
PT AGAIN RESTING IN BED EYES CLOSED SKIN PWD RESPIRATIONS EVEN UNLABORED. UPDRAFT PREVIOUSLY ADMINISTERED FOR REPORTS OF DIFFICULTY COUGHING UP PHLEGM. PT REPORTED SOME RELIEF. HOT TEA ALSO GIVEN PER REQUEST FOR COMFORT. CM BEDSEARCH CONTINUES.
[2021-03-20] MEDS: Acetaminophen 325 MG TABLET PO ×2 (03:45→13:06)
--- NOTE | 2021-03-20 04:07 | PC.NURSE ---
PT WAKING UP OUT OF SLEEP REPORTING LEFT LEG PAIN, MEDICATED WITH TYLENOL PRN. BACK TO SLEEP INSTANTLY. EYES CLOSED, SKIN PWD RESPIRATIONS EVEN UNLABORED. +CMS TO LEFT FOOT. WILL CONTINUE TO MONITOR FOR ADDITIONAL NEEDS.
--- NOTE | 2021-03-20 05:48 | PC.NURSE ---
PT UP TO BEDSIDE USING URINAL INDEPENDENTLY. FRESH WATER PITCHER GIVEN. REQUESTING PRN PAIN MEDS- REMINDED NOT YET DUE FOR MEDS. CM BEDSEARCH CONTINUES.
[2021-03-20] MEDS: oxyCODONE HCl Immed Release 5 MG TABLET PO ×2 (07:09→13:09)
[2021-03-20] MEDS: Thiamine HCL 100 MG TABLET PO (08:01)
[2021-03-20] MEDS: busPIRone HCl 5 MG TABLET 7.5 MG PO (08:01)
[2021-03-20] MEDS: Benzonatate 100 MG CAPSULE PO (08:01)
[2021-03-20] MEDS: Cyanocobalamin (Vitamin B-12) 500 MCG TABLET PO (08:01)
[2021-03-20] MEDS: guaiFENesin LA 600 MG TAB.ER.12H PO (08:01)
[2021-03-20] MEDS: Folic Acid 1 MG TABLET PO (08:02)
[2021-03-20] MEDS: Gabapentin 100 MG CAPSULE PO (08:02)
[2021-03-20] MEDS: Fluticasone/Vilanterol 200/25 BLST.W.DEV 1 PUFF INHALE (08:13)
[2021-03-20] MEDS: Albuterol Sulfate 90 MCG 8 GM INHALER 1 PUFF INHALE (08:20)
--- NOTE | 2021-03-20 10:23 | MHC.CM.ED ---
Review of ED notes: pt has been cooperative and showing no signs of ETOH w/d. Met with pt to discuss transfer to STR: pt informed that [facility] did not have bed availability but that [facility] extended an offer. Pt accepted frequently reminding me of his leg pain and inability to walk. [facility]ing for [facility] to [facility] then [facility] this afternoon via [facility]. Will await confirmation for tx by STR. ED care team updated on d/c plan
[2021-03-20 12:41] VITALS: RESP 18
== END 2021-03-20 14:14 | disposition skilled nursing facility (03) ==
PROVIDERS: Emergency Provider Emergency Medicine Emergency Medical Services
DX: S82.152A Displaced fracture of left tibial tuberosity, initial encounter for closed fracture (principal); W19.XXXA Unspecified fall, initial encounter; F10.120 Alcohol abuse with intoxication, uncomplicated; Y90.2 Blood alcohol level of 40-59 mg/100 ml; M25.562 Pain in left knee; R00.0 Tachycardia, unspecified; R06.02 Shortness of breath; I10 Essential (primary) hypertension; Z20.822 Contact with and (suspected) exposure to COVID-19; Y93.9 Activity, unspecified; Y92.9 Unspecified place or not applicable; Y99.9 Unspecified external cause status
CPT/HCPCS: 36415; 70450; 72125; 73560; 73590; 73700; 80048; 81003; 82077; 85025; 87635; 94640; 96372; 97162; 99285; J1170

== ENCOUNTER 2021-04-06 08:11 | Outpatient (REF) | payer MEDICARE, BC, SELFPAY | END 2021-04-06 08:12 | disposition home or self-care (01) | LOC: HO.HOSX 08:11 | PROVIDERS: Visit Provider Physician Assistant | DX: Z13.89 Encounter for screening for other disorder (principal) ==

== ENCOUNTER 2021-05-04 08:07 | Outpatient (REF) | payer OTHER, SELFPAY ==
--- NOTE | ~2021-05-04 | XR_ITS ---
EXAMINATION: XR KNEE, LEFT CLINICAL INFORMATION: Left knee pain. COMPARISON: Multiple priors, most recent left knee CT dated 03/18/2021. TECHNIQUE: 4 views of the left knee. FINDINGS: Redemonstration of a proximal tibial fracture including a transverse component as well as a tibial tuberosity component in near anatomic alignment with mild interval new bone/callus formation. Degree of osseous bridging difficult to evaluate on plain radiographs. No new fracture or dislocation. No joint space narrowing or marginal osteophytes. Atherosclerotic calcifications. XR/XR knee LT 3V IMPRESSION: Slightly comminuted proximal tibial fracture in near-anatomic alignment.
== END 2021-05-04 08:08 | disposition home or self-care (01) ==
LOC: HO.HOSX 08:07
PROVIDERS: Visit Provider Physician Assistant
DX: S82.152A Displaced fracture of left tibial tuberosity, initial encounter for closed fracture (principal)
CPT/HCPCS: 73562; 99202

== ENCOUNTER → 2021-05-24 14:38 | Outpatient (BNVA) | payer OTHER, SELFPAY | PROVIDERS: Visit Provider Orthopaedic Surgery | DX: S82.152D Displaced fracture of left tibial tuberosity, subsequent encounter for closed fracture with routine healing (principal) | CPT/HCPCS: 99212 ==

== ENCOUNTER 2021-07-12 11:56 | Outpatient (REF) | payer OTHER, SELFPAY ==
--- NOTE | ~2021-07-12 | XR_ITS ---
EXAMINATION: XR KNEE, LEFT CLINICAL INFORMATION: Pain. COMPARISON: Left knee radiographs dated from 05/04/2021. TECHNIQUE: Two views of the left knee. FINDINGS: Comminuted fracture of the proximal tibia is redemonstrated in near-anatomic alignment. There are signs of bony healing with decreased lucency of the fracture lines and increased sclerosis of the fracture borders. No new fractures. No joint effusion. Extensive vascular calcifications. XR/XR knee LT 2V IMPRESSION: Healing proximal tibial fracture in unchanged near anatomic alignment.
== END 2021-07-12 11:57 | disposition home or self-care (01) ==
LOC: HO.HOSX 11:56
PROVIDERS: Visit Provider Orthopaedic Surgery
DX: S82.152D Displaced fracture of left tibial tuberosity, subsequent encounter for closed fracture with routine healing (principal)
CPT/HCPCS: 73560; 99212

== ENCOUNTER 2021-09-11 23:25 | Emergency (ER) | payer MEDICARE, BC, MEDICAID, SELFPAY ==
[2021-09-11 23:39] VITALS: BP 148/92; BP 150/70; PULSE 88; PULSE 89; RESP 16; TEMP 36.8; O2SAT 95; O2SAT 98; BMI 17.7
--- NOTE | 2021-09-11 23:53 | ED.DENTAL ---
HPI - Dental/Oral General Chief complaint: Eye Problems Stated complaint: R FACIAL PAIN/INJURY,NO KNOWN INJURY/TRAUMA Time Seen by Provider: 09/11/21 23:53 Source: patient Mode of arrival: ambulatory Limitations: no limitations History of Present Illness HPI Narrative: Patient with chronic caries teeth planning for implantation noticed swelling of the right cheek for last 2 days and increased pain in the right upper gum area no fever no chills Related Data Home Medications Medication Instructions Recorded Confirmed benzonatate 100 mg capsule 100 mg PO TID 03/03/21 03/18/21 budesonide-formoterol HFA 160 2 puff INHALATION BID 03/03/21 03/18/21 mcg-4.5 mcg/actuation aerosol inhaler folic acid 1 mg tablet 1 mg PO DAILY 03/03/21 03/18/21 gabapentin 100 mg capsule 100 mg PO BID 03/03/21 03/18/21 tamsulosin 0.4 mg capsule 0.4 mg PO DAILY 03/03/21 03/18/21 tiotropium bromide 2.5 2 puff INHALATION DAILY 03/03/21 03/18/21 mcg/actuation mist for inhalation acamprosate 333 mg tablet,delayed 333 mg PO TID 03/18/21 03/18/21 release acetaminophen 500 mg tablet 500 mg PO TID PRN 03/18/21 03/18/21 buspirone 7.5 mg tablet 7.5 mg PO BID 03/18/21 03/18/21 clotrimazole 1 % topical solution 1 appl TOPICAL BID 03/18/21 03/18/21 cyanocobalamin (vitamin B-12) 500 500 mcg PO BID 03/18/21 03/18/21 mcg tablet docusate sodium 100 mg tablet 100 mg PO DAILY PRN 03/18/21 03/18/21 guaifenesin 600 mg tablet,extended 600 mg PO BID 03/18/21 03/18/21 release hydroxyzine HCl 10 mg tablet 10 mg PO DAILY PRN 03/18/21 03/18/21 olanzapine 10 mg tablet 10 mg PO BEDTIME 03/18/21 03/18/21 psyllium 1 tsp PO DAILY 03/18/21 03/18/21 thiamine HCl (vitamin B1) 100 mg 100 mg PO DAILY 03/18/21 03/18/21 tablet Previous Rx's Medication Instructions Recorded albuterol sulfate 90 mcg/actuation 1 inh INHALATION QID PRN #18 g 07/06/20 aerosol inhaler amoxicillin 875 mg-potassium 1 tab PO BID #20 tab 09/11/21 clavulanate 125 mg tablet (Augmentin) tramadol 50 mg tablet 50 mg PO Q6H PRN #20 tab 09/11/21 Allergies Allergy/AdvReac Type Severity Reaction Status Date / Time tree and shrub pollen Allergy Mild Rash Verified 05/24/21 14:49 Review of Systems Review of Systems: Yes all other systems are reviewed and are negative [facility] Past Medical History Medical History COPD (chronic obstructive pulmonary disease) Pneumonia Pneumothorax Right inguinal hernia Umbilical hernia Social History Social History Alcohol intake: current Alcohol intake frequency: a few times a week Alcohol type: beer Advance Directives: Yes Advance Directives Information Provided: Yes Advance Directives on File: Yes Advance Directives Date on File: 03/22/21 Current occupational status: 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 Tender swelling of the right cheek area Teeth image: 1. Tenderness in the gum area without any fluctuancy no pus discharge edentulous Neck: Neck: Yes full ROM and Yes no lymphadenopathy Chest: Chest palpation & inspection: normal inspection of the chest Resp: Effort & Inspection: normal respiratory effort Auscultation: clear to auscultation bilaterally Cardio: Palpation: normal PMI Rate: regular rate Heart sounds: S1 normal heart sound present and S2 normal heart sound present Discharge Plan Discharge Clinical Impression: Cellulitis of face Patient Disposition: Home, Self-Care Instructions: Cellulitis (ED) Additional Instructions: Take antibiotic as prescribed Follow-up with your dentist Report to PCP/80 if not better Prescriptions: New amoxicillin-pot clavulanate [Augmentin] 875-125 mg tablet 1 tab PO BID Qty: 20 RF: 0 tramadol 50 mg tablet 50 mg PO Q6H PRN (Reason: pain) Qty: 20 RF: 0 No Action albuterol sulfate 90 mcg/actuation HFA aerosol inhaler 1 inh inhalation QID PRN (Reason: shortness of breath or wheezing) Qty: 18 RF: 0 hydroxyzine HCl 10 mg tablet 10 mg PO DAILY PRN (Reason: Anxiety) RF: 0 guaifenesin 600 mg Tablet Extended Release 600 mg PO BID RF: 0 acetaminophen 500 mg Tablet 500 mg PO TID PRN (Reason: Pain) RF: 0 cyanocobalamin (vitamin B-12) 500 mcg Tablet 500 mcg PO BID RF: 0 psyllium Powder 1 tsp PO DAILY RF: 0 buspirone 7.5 mg Tablet 7.5 mg PO BID RF: 0 docusate sodium 100 mg Tablet 100 mg PO DAILY PRN (Reason: Constipation) RF: 0 acamprosate 333 mg Tablet,Delayed Release (Dr/Ec) 333 mg PO TID RF: 0 clotrimazole 1 % Solution 1 appl TOPICAL BID RF: 0 thiamine HCl (vitamin B1) 100 mg Tablet 100 mg PO DAILY RF: 0 olanzapine 10 mg Tablet 10 mg PO BEDTIME RF: 0 benzonatate 100 mg capsule 100 mg PO TID RF: 0 budesonide-formoterol 160-4.5 mcg/actuation HFA aerosol inhaler 2 puff inhalation BID RF: 0 Spiriva Respimat 2.5 mcg/actuation mist 2 puff inhalation DAILY RF: 0 gabapentin 100 mg capsule 100 mg PO BID RF: 0 folic acid 1 mg tablet 1 mg PO DAILY RF: 0 tamsulosin 0.4 mg capsule 0.4 mg PO DAILY RF: 0 Interventions: ED Discharge Assessment Last Done: 09/12/21 00:26 Discharge Date/Time: 09/12/21 00:32
[2021-09-12] MEDS: Amoxicillin/Potassium Clav 875 MG TABLET PO (00:10)
[2021-09-12] MEDS: traMADoL HCL 50 MG TABLET PO (00:11)
[2021-09-12] MEDS: Milk of Magnesia 30 ML ORAL.SUSP PO (00:11)
== END 2021-09-12 00:32 | disposition home or self-care (01) ==
PROVIDERS: Emergency Provider Internal Medicine
DX: L03.211 Cellulitis of face (principal); K02.9 Dental caries, unspecified
CPT/HCPCS: 99283; 99284

== ENCOUNTER 2021-09-15 17:09 | Emergency (ER) | payer MEDICARE, BC, SELFPAY ==
--- NOTE | ~2021-09-15 | XR_ITS ---
EXAMINATION: CHEST AND KUB. CLINICAL INFORMATION: COPD, SOB. COMPARISON: None TECHNIQUE: Chest one view. KV one view. FINDINGS: Chest: The lungs are hyperinflated but clear of acute process. Heart size and pulmonary vascularity is normal. Mild blunting of left CP angle and elevation of lateral left hemidiaphragm. It is stable compared 07/08/2020. There is mild deformity left posterior fifth rib. No other bony abnormality seen. KUB: There is moderate scattered stool in the colon without any significant distention. The small bowel loops are normal caliber. No organomegaly. Mild spondylosis L1-L2, L2-L3 and L3-L4 disc levels. XR/XR chest 1V IMPRESSION: Hyperinflated lungs with chronic elevated left lateral hemidiaphragm, unchanged to 07/08/2020. Moderate constipation.
--- NOTE | ~2021-09-15 | XR_ITS ---
EXAMINATION: CHEST AND KUB. CLINICAL INFORMATION: COPD, SOB. COMPARISON: None TECHNIQUE: Chest one view. KV one view. FINDINGS: Chest: The lungs are hyperinflated but clear of acute process. Heart size and pulmonary vascularity is normal. Mild blunting of left CP angle and elevation of lateral left hemidiaphragm. It is stable compared 07/08/2020. There is mild deformity left posterior fifth rib. No other bony abnormality seen. KUB: There is moderate scattered stool in the colon without any significant distention. The small bowel loops are normal caliber. No organomegaly. Mild spondylosis L1-L2, L2-L3 and L3-L4 disc levels. XR/XR KUB IMPRESSION: Hyperinflated lungs with chronic elevated left lateral hemidiaphragm, unchanged to 07/08/2020. Moderate constipation.
[2021-09-15 18:03] VITALS: BP 129/75; BP 131/70; PULSE 100; PULSE 103; RESP 24; TEMP 37.1; O2SAT 98; O2SAT 99; BMI 17.7
--- NOTE | 2021-09-15 18:08 | ED.SOB ---
HPI - SOB/Dyspnea General Chief Complaint: Abdominal Pain Stated Complaint: CONSTIPATION/COPD EXACERBATION Time Seen by Provider: 09/15/21 17:29 Source: patient Mode of arrival: ambulatory History of Present Illness HPI Narrative: 64-year-old male with medical history of COPD, pneumonia, pneumothorax, schizophrenia, chronic vertigo, alcohol abuse BIBA complaining of constipation times a couple days reports passing hard small stools with increased straining. Reports lower abdominal/rectal pain. Also reports chronic COPD/emphysema with acute on chronic SOB and cough. Denies fever, chills, CP, nausea/vomiting, rectal bleeding, melena, dysuria/hematuria, pedal edema. MD elicited complaint: shortness of breath Pertinent past history: COPD Related Data Home Medications Medication Instructions Recorded Confirmed benzonatate 100 mg capsule 100 mg PO TID 03/03/21 03/18/21 budesonide-formoterol HFA 160 2 puff INHALATION BID 03/03/21 03/18/21 mcg-4.5 mcg/actuation aerosol inhaler folic acid 1 mg tablet 1 mg PO DAILY 03/03/21 03/18/21 gabapentin 100 mg capsule 100 mg PO BID 03/03/21 03/18/21 tamsulosin 0.4 mg capsule 0.4 mg PO DAILY 03/03/21 03/18/21 tiotropium bromide 2.5 2 puff INHALATION DAILY 03/03/21 03/18/21 mcg/actuation mist for inhalation acamprosate 333 mg tablet,delayed 333 mg PO TID 03/18/21 03/18/21 release acetaminophen 500 mg tablet 500 mg PO TID PRN 03/18/21 03/18/21 buspirone 7.5 mg tablet 7.5 mg PO BID 03/18/21 03/18/21 clotrimazole 1 % topical solution 1 appl TOPICAL BID 03/18/21 03/18/21 cyanocobalamin (vitamin B-12) 500 500 mcg PO BID 03/18/21 03/18/21 mcg tablet docusate sodium 100 mg tablet 100 mg PO DAILY PRN 03/18/21 03/18/21 guaifenesin 600 mg tablet,extended 600 mg PO BID 03/18/21 03/18/21 release hydroxyzine HCl 10 mg tablet 10 mg PO DAILY PRN 07/22/21 07/22/21 olanzapine 10 mg tablet 10 mg PO BEDTIME 03/18/21 03/18/21 psyllium 1 tsp PO DAILY 03/18/21 03/18/21 thiamine HCl (vitamin B1) 100 mg 100 mg PO DAILY 03/18/21 03/18/21 tablet Previous Rx's Medication Instructions Recorded albuterol sulfate 90 mcg/actuation 1 inh INHALATION QID PRN #18 g 07/06/20 aerosol inhaler amoxicillin 875 mg-potassium 1 tab PO BID #20 tab 09/11/21 clavulanate 125 mg tablet (Augmentin) tramadol 50 mg tablet 50 mg PO Q6H PRN #20 tab 09/11/21 Allergies Allergy/AdvReac Type Severity Reaction Status Date / Time tree and shrub pollen Allergy Mild Rash Verified 05/24/21 14:49 Review of Systems Review of Systems: Constitutional: No Fever, No Chills, No Fatigue, No Malaise ENT/Mouth: No Ear Pain, No Nasal Congestion, No sore throat, No Rhinorrhea Eyes: No Eye Pain, No Discharge, No Vision Changes Cardiovascular: No Chest Pain, +chronic SOB, No Dyspnea on Exertion, No Orthopnea, No Edema, No Palpitations Respiratory: +chronic Cough, No Sputum, No Dyspnea Gastrointestinal: No Nausea, No Vomiting, No Diarrhea, + Constipation, + Abdominal pain, +rectal pain Genitourinary: No Dysuria, No Urinary Frequency, No Flank Pain Musculoskeletal: No joint pain, No Myalgias, No Joint Swelling Skin: No Skin Lesions, No rash Neuro: No Weakness, No Numbness, No Headache Yes all other systems are reviewed and are negative [facility] Past Medical History Attestation statement: The following information was validated with the patient. 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 Physical Exam Vital Signs: Vital Signs: Last Vital Signs Temp 98.8 F 09/15/21 18:03 Pulse 103 H 09/15/21 18:03 Resp 24 H 09/15/21 18:03 BP 129/75 09/15/21 18:03 Pulse Ox 98 09/15/21 18:03 BMI result Body Mass Index 17.7 Const: General: cooperative and ill appearing chronically Orientation/consciousness: patient oriented x3 Limitations: no limitations HENMT: Head: Yes normal to inspection and Yes atraumatic Ears: hearing grossly normal bilaterally General nose exam: Normal external nose present Face and sinus: Yes normal facial exam Eyes: General: appearance normal, both eyes and all related structures EOM: EOMs intact bilaterally Neck: Neck: Yes normal visual inspection and Yes no meningeal signs Resp: Effort & Inspection: normal respiratory effort Auscultation: diminished lung sounds diffuse Cardio: Rate: regular rate and tachycardic Heart sounds: S1 normal heart sound present and S2 normal heart sound present GI: Inspection: Yes normal to inspection and No distended Palpation (GI): Soft to palpation, nontender, no guarding and not rigid Skin: Rashes: no rashes Wounds: no wounds Neuro: General: patient oriented x3, gait normal, tone normal, moves all extremities and no meningeal signs Gait exam (Neuro): Normal gait present Extrem: General: Yes normal to inspection Course Course Course Narrative: -1808--patient refusing DuoNeb, reported to respiratory therapist I do not need that shit -1830--patient refusing EKG XR chest 1V / XR KUB IMPRESSION: Hyperinflated lungs with chronic elevated left lateral hemidiaphragm, unchanged to 07/08/2020. ? Moderate constipation. >>1915-- patient had successful BM in the emergency department. Reports symptomatic improvement / resolution. Discussed worrisome signs and symptoms and strict return precautions. Discussed with patient would like to have obtain labs / give DuoNeb to treat COPD however patient refusing. Will sign out AMA MDM - SOB/Dyspnea MDM Narrative Medical decision making narrative: 64-year-old male with medical history of COPD, pneumonia, pneumothorax, schizophrenia, chronic vertigo, alcohol abuse BIBA complaining of constipation x a couple days reports passing hard small stools with increased straining. Also reports chronic COPD/emphysema with acute on chronic SOB and cough. On exam tachycardic, tachypneic, decreased air movement throughout lung forte, chronically ill-appearing, abdomen soft/nontender, nondistended, no rebound or guarding. Patient passing small hard stools in the ED. Concern for constipation vs SBO vs COPD/emphysema exacerbation. Lower concern for pneumonia/viral symptoms COVID-19 or PE Low concern for severe sepsis at this time Plan: EKG, labs, KUB, CXR, enema, DuoNeb Differential Diagnosis Differential diagnosis: Likely acute exacerbation of chronic obstructive airways disease Medical Records Attestation: I reviewed the patient's medical records. Lab Data Attestation: I reviewed the patient's lab results. Discharge Plan Discharge Clinical Impression: Constipation Qualifiers: Constipation type: unspecified constipation type Qualified Code(s): K59.00 - Constipation, unspecified COPD (chronic obstructive pulmonary disease) Qualifiers: COPD type: unspecified COPD Qualified Code(s): J44.9 - Chronic obstructive pulmonary disease, unspecified Patient Disposition: Left Against Medical Advice Instructions: Constipation (ED), COPD (Chronic Obstructive Pulmonary Disease) (ED) Additional Instructions: your very constipated today, make sure your staying hydrated at home. Keep moving/ walking this helps aid move your bowels. Avoid any opiates. You may take OTC medication as needed if constipation recurs if you do not have another BM in 48 hours return to the emergency department if you develop constant worsening shortness of breath, chest pain, fever, cough nausea, or vomiting or swelling in your legs feet return to the ED Prescriptions: No Action albuterol sulfate 90 mcg/actuation HFA aerosol inhaler 1 inh inhalation QID PRN (Reason: shortness of breath or wheezing) Qty: 18 RF: 0 hydroxyzine HCl 10 mg tablet 10 mg PO DAILY PRN (Reason: Anxiety) RF: 0 guaifenesin 600 mg Tablet Extended Release 600 mg PO BID RF: 0 acetaminophen 500 mg Tablet 500 mg PO TID PRN (Reason: Pain) RF: 0 cyanocobalamin (vitamin B-12) 500 mcg Tablet 500 mcg PO BID RF: 0 psyllium Powder 1 tsp PO DAILY RF: 0 buspirone 7.5 mg Tablet 7.5 mg PO BID RF: 0 docusate sodium 100 mg Tablet 100 mg PO DAILY PRN (Reason: Constipation) RF: 0 acamprosate 333 mg Tablet,Delayed Release (Dr/Ec) 333 mg PO TID RF: 0 clotrimazole 1 % Solution 1 appl TOPICAL BID RF: 0 thiamine HCl (vitamin B1) 100 mg Tablet 100 mg PO DAILY RF: 0 olanzapine 10 mg Tablet 10 mg PO BEDTIME RF: 0 amoxicillin-pot clavulanate [Augmentin] 875-125 mg tablet 1 tab PO BID Qty: 20 RF: 0 tramadol 50 mg tablet 50 mg PO Q6H PRN (Reason: pain) Qty: 20 RF: 0 benzonatate 100 mg capsule 100 mg PO TID RF: 0 budesonide-formoterol 160-4.5 mcg/actuation HFA aerosol inhaler 2 puff inhalation BID RF: 0 Spiriva Respimat 2.5 mcg/actuation mist 2 puff inhalation DAILY RF: 0 gabapentin 100 mg capsule 100 mg PO BID RF: 0 folic acid 1 mg tablet 1 mg PO DAILY RF: 0 tamsulosin 0.4 mg capsule 0.4 mg PO DAILY RF: 0 Referrals: Physician,Unknown J [Primary Care Provider] - 2 days Stand Alone Forms: Against Medical Advice
[2021-09-15] MEDS: Mineral OiL enema 133 ML ENEMA PR (18:43)
--- NOTE | 2021-09-15 18:51 | PC.NURSE ---
PT refusing to give labs at this time. PT stated that he is too uncomfortable to sit and give blood. PT also stated that he gets sick and dizzy if he gives blood.
--- NOTE | 2021-09-15 19:31 | PC.NURSE ---
Assumed care of pt Pt states able to move BM after enema. Pt states feeling much better and ready to go home. Provider made aware Will continue to monitor
== END 2021-09-15 19:49 | disposition left against medical advice (07) ==
PROVIDERS: Emergency Provider Internal Medicine
DX: J44.1 Chronic obstructive pulmonary disease with (acute) exacerbation (principal); K59.00 Constipation, unspecified; R10.9 Unspecified abdominal pain
CPT/HCPCS: 71045; 74018; 99283; 99284

== ENCOUNTER 2021-09-21 22:58 | Emergency (ER) | payer MEDICARE, BC, SELFPAY ==
--- NOTE | ~2021-09-21 | XR_ITS ---
EXAMINATION: XR ABDOMEN KUB CLINICAL INDICATION: Abdominal pain. No bowel movement. COMPARISON: Abdomen 09/15/2021 TECHNIQUE: AP view of the abdomen. FINDINGS: Large volume of stool throughout the colon from cecum through pelvis. No abnormally dilated bowel loop. Nonobstructive bowel pattern. Multiple linear calcifications in the left and right renal fort[place] likely are vascular. There is extensive vascular calcification of the iliac vessels and the pelvis. XR/XR KUB IMPRESSION: Large volume of stool in the colon. Nonobstructive bowel pattern.
--- NOTE | ~2021-09-21 | XR_ITS ---
EXAMINATION: XR CHEST CLINICAL INFORMATION: Chest pain COMPARISON: Chest x-ray 09/15/2021 TECHNIQUE: Frontal portable view of the chest was obtained. 11:20 PM FINDINGS: Hyperinflation of lungs. Chronic pleural thickening and elevation of left diaphragm. No acute abnormality. No pulmonary vascular congestion. No focal consolidation or pleural effusion. Chronic deformity of the left posterior fifth rib again noted. XR/XR chest 1V IMPRESSION: No acute abnormality of chest.
--- NOTE | 2021-09-21 23:07 | ECG_ITS ---
Test Reason : CHEST PAIN Blood Pressure : / mmHG Vent. Rate : 072 BPM Atrial Rate : 072 BPM P-R Int : 140 ms QRS Dur : 066 ms QT Int : 402 ms P-R-T Axes : 087 070 075 degrees QTc Int : 440 ms Sinus rhythm with Premature atrial complexes Septal infarct , age undetermined Abnormal ECG When compared with ECG of 06-OCT-2019 08:03, Premature atrial complexes are now Present Referred By: Elizabeth Villalobos Electronically Signed By:CRYSTAL NARVAEZ MD
[2021-09-21 23:19] VITALS: BP 114/50; PULSE 50; PULSE 68; RESP 14; TEMP 36.5; O2SAT 100; O2SAT 98; BMI 18.4
--- NOTE | 2021-09-21 23:41 | ED_ITS ---
HPI - General Adult General Chief complaint: General Medical Stated complaint: Chest pain Time Seen by Provider: 09/21/21 23:07 Source: patient Mode of arrival: EMS History of Present Illness HPI narrative: 65-year-old male brought in by EMS with stated complaint of chest pain, but then triage note as well as my interview patient has primary complaint of abdominal pain please states he has been unable to have a bowel movement for a couple of days. Patient states he has been mildly nauseated but otherwise denies abdominal pain. Patient states he has been taking his medications as prescribed and had ?a couple of beers last night?. Otherwise, he denies chest pain or palpitations. Related Data Home Medications Medication Instructions Recorded Confirmed benzonatate 100 mg capsule 100 mg PO TID 03/03/21 03/18/21 budesonide-formoterol HFA 160 2 puff INHALATION BID 03/03/21 03/18/21 mcg-4.5 mcg/actuation aerosol inhaler folic acid 1 mg tablet 1 mg PO DAILY 03/03/21 03/18/21 gabapentin 100 mg capsule 100 mg PO BID 03/03/21 03/18/21 tamsulosin 0.4 mg capsule 0.4 mg PO DAILY 03/03/21 03/18/21 tiotropium bromide 2.5 2 puff INHALATION DAILY 03/03/21 03/18/21 mcg/actuation mist for inhalation acamprosate 333 mg 333 mg PO TID 03/18/21 03/18/21 tablet,delayed release acetaminophen 500 mg tablet 500 mg PO TID PRN 03/18/21 03/18/21 buspirone 7.5 mg tablet 7.5 mg PO BID 03/18/21 03/18/21 clotrimazole 1 % topical 1 appl TOPICAL BID 03/18/21 03/18/21 solution cyanocobalamin (vitamin B-12) 500 mcg PO BID 03/18/21 03/18/21 500 mcg tablet docusate sodium 100 mg tablet 100 mg PO DAILY PRN 03/18/21 03/18/21 guaifenesin 600 mg 600 mg PO BID 03/18/21 03/18/21 tablet,extended release hydroxyzine HCl 10 mg tablet 10 mg PO DAILY PRN 03/18/21 03/18/21 olanzapine 10 mg tablet 10 mg PO BEDTIME 03/18/21 03/18/21 psyllium 1 tsp PO DAILY 03/18/21 03/18/21 thiamine HCl (vitamin B1) 100 mg 100 mg PO DAILY 03/18/21 03/18/21 tablet Previous Rx's Medication Instructions Recorded albuterol sulfate 90 mcg/actuation 1 inh INHALATION QID PRN #18 g 07/06/20 aerosol inhaler amoxicillin 875 mg-potassium 1 tab PO BID #20 tab 09/11/21 clavulanate 125 mg tablet (Augmentin) tramadol 50 mg tablet 50 mg PO Q6H PRN #20 tab 09/11/21 Allergies Allergy/AdvReac Type Severity Reaction Status Date / Time tree and shrub pollen Allergy Mild Rash Verified 05/24/21 14:49 Review of Systems Verdana 4l Review of Systems: Verdana 4d Pertinent positives and Verdana 4d negatives as stated in HPI 10 point review of systems is otherwise negative. 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 GENERAL: Chronically ill, cachectic, in no acute distress. HEAD: Normocephalic/atraumatic EYES: PERRLA, EOMI EARS: Ext canals without abnormality, TMs non-bulging and non-erythematous NOSE: Nares patent bilateral OROPHARYNX: no oral lesions noted, posterior pharynx clear LUNGS: Good inspiratory effort, mild tachypnea noted, no expiratory wheeze/rhonchi/rales SpO2<100> CARDIOVASCULAR: Regular rate and rhythm without noted murmurs ABDOMEN: Soft, non-tender, non-distended with bowel sounds, right inguinal hernia noted without pain on palpation MUSCULOSKELETAL: No tenderness, deformities, or effusions noted on gross inspection. EXTREMITIES: No cyanosis, clubbing or edema. SKIN: Inspection of the skin reveals no rashes NEUROLOGIC: Alert and oriented x 4. Course Course Course Narrative: 65-year-old male with history and clinical presentation consistent with constipation, although based on history sounds like he may have some mild obstructive symptoms secondary to constipation. Review of all investigations negative for acute findings other than constipation and patient being COVID-19 positive. It is noted that he is neither hypoxic nor is he tachycardic. Patient was offered the option Mag citrate or manual disimpaction and patient uses Mag citrate and was provided with a dose and then discharged home in stable condition. Medical Decision Making Lab Data Result diagrams: 09/22/21 00:39 09/22/21 00:39 Labs: Lab Results 09/22/21 09/22/21 09/22/21 Range/Units 00:11 00:28 00:39 WBC 6.7 (4.8-10.8) X10*3/uL RBC 4.33 L (4.60-5.80) X10*6/uL Hgb 13.9 L (14.0-18.0) g/dl Hct 40.2 L (42.0-52.0) % MCV 92.8 (80.0-98.0) fL MCH 32.1 (27.0-33.0) pg MCHC 34.6 (31.0-36.0) g/dl RDW 13.1 (11.0-16.0) % Plt Count 207 (160-400) X10*3/uL MPV 9.2 L (9.4-12.4) fL Immature Gran % (Auto) 0.3 (0.0-0.4) % Neut % (Auto) 70.9 (45-73) % Lymph % (Auto) 21.3 (20-40) % Dewey % (Auto) 6.4 (2-11) % Eos % (Auto) 1.0 (0-4) % Baso % (Auto) 0.1 (0-2) % Lymph # (Auto) 1.4 (1.2-4.9) X10*3/uL Dewey # (Auto) 0.4 (0.1-1.2) X10*3/uL Eos # (Auto) 0.1 (0.0-0.4) X10*3/uL Baso # (Auto) 0.0 (0.0-0.2) X10*3/uL Abs Immat Gran (auto) 0.02 (0.00-0.03) X10*3/uL Absolute Neuts (auto) 4.8 (2.0-8.3) x10*3/uL Absolute Nucleated RBC 0.000 (0.0-0.012) X10*3/uL Nucleated RBC % (auto) 0.0 (0.0-0.2) /100WBC PT 10.4 (9.9-13.0) SEC INR 0.9 (0.9-1.1) VBG pH (7.32-7.43) VBG pCO2 mmHg VBG pO2 mmHg VBG HCO3 (22-26) mmol/L VBG O2 Saturation % VBG Base Excess mmol/L Sodium (135-145) mmol/L Potassium (3.3-5.1) mmol/L Chloride (96-108) mmol/L Carbon Dioxide (22-29) mmol/L Anion Gap (12-20) BUN (9-16) mg/dL Creatinine (0.5-1.4) mg/dL Estim Creat Clear Calc Estimated GFR Random Glucose (60-115) mg/dL Calcium (8.4-10.2) mg/dL Total Bilirubin (0.0-1.0) mg/dL AST (5-37) U/L ALT (0-40) U/L Alkaline Phosphatase (39-117) U/L Total Protein (6.5-8.0) g/dL Albumin (3.5-5.0) g/dL Lipase (8-78) U/L Ethyl Alcohol mg/dL COVID-19 ([facility]) Positive A (Negative) COVID-19 Clin Com See Note 09/22/21 09/22/21 09/22/21 Range/Units 00:39 00:39 00:41 WBC (4.8-10.8) X10*3/uL RBC (4.60-5.80) X10*6/uL Hgb (14.0-18.0) g/dl Hct (42.0-52.0) % MCV (80.0-98.0) fL MCH (27.0-33.0) pg MCHC (31.0-36.0) g/dl RDW (11.0-16.0) % Plt Count (160-400) X10*3/uL MPV (9.4-12.4) fL Immature Gran % (Auto) (0.0-0.4) % Neut % (Auto) (45-73) % Lymph % (Auto) (20-40) % Dewey % (Auto) (2-11) % Eos % (Auto) (0-4) % Baso % (Auto) (0-2) % Lymph # (Auto) (1.2-4.9) X10*3/uL Dewey # (Auto) (0.1-1.2) X10*3/uL Eos # (Auto) (0.0-0.4) X10*3/uL Baso # (Auto) (0.0-0.2) X10*3/uL Abs Immat Gran (auto) (0.00-0.03) X10*3/uL Absolute Neuts (auto) (2.0-8.3) x10*3/uL Absolute Nucleated RBC (0.0-0.012) X10*3/uL Nucleated RBC % (auto) (0.0-0.2) /100WBC PT (9.9-13.0) SEC INR (0.9-1.1) VBG pH 7.40 (7.32-7.43) VBG pCO2 37 mmHg VBG pO2 31 mmHg VBG HCO3 23 (22-26) mmol/L VBG O2 Saturation 51.0 % VBG Base Excess -1.0 mmol/L Sodium 133 L (135-145) mmol/L Potassium 3.8 (3.3-5.1) mmol/L Chloride 100 (96-108) mmol/L Carbon Dioxide 23 (22-29) mmol/L Anion Gap 14 (12-20) BUN 7 L (9-16) mg/dL Creatinine 0.75 (0.5-1.4) mg/dL Estim Creat Clear Calc 76.6 Estimated GFR > 60 Random Glucose 110 (60-115) mg/dL Calcium 8.5 (8.4-10.2) mg/dL Total Bilirubin 0.3 (0.0-1.0) mg/dL AST 23 (5-37) U/L ALT 16 (0-40) U/L Alkaline Phosphatase 94 (39-117) U/L Total Protein 6.1 L (6.5-8.0) g/dL Albumin 3.7 (3.5-5.0) g/dL Lipase 37 (8-78) U/L Ethyl Alcohol < 10 mg/dL COVID-19 ([facility]) (Negative) COVID-19 Clin Com ECG Data Attestation: I personally reviewed and interpreted this ECG as follows: Prior ECG tracings: available for review (10/06/2019) Interpretation: Sinus rhythm with PACs, HR-73, no STEMI, CA/QRS/QTC is within normal limits. Discharge Plan Discharge Clinical Impression: COPD (chronic obstructive pulmonary disease), Right inguinal hernia, Constipation, Lab test positive for detection of COVID-19 virus Patient Disposition: Home, Self-Care Instructions: Constipation (ED), High Fiber Diet (ED), COPD (Chronic Obstructive Pulmonary Disease) (ED), COVID-19 (Coronavirus Disease 2019) (ED) Additional Instructions: 1. Resume all of your home medications as prescribed. 2. Call your primary care provider to set up a telemedicine appointment. Prescriptions: No Action albuterol sulfate 90 mcg/actuation HFA aerosol inhaler 1 inh inhalation QID PRN (Reason: shortness of breath or wheezing) Qty: 18 0RF hydroxyzine HCl 10 mg tablet 10 mg PO DAILY PRN (Reason: Anxiety) 0RF guaifenesin 600 mg Tablet Extended Release 600 mg PO BID 0RF acetaminophen 500 mg Tablet 500 mg PO TID PRN (Reason: Pain) 0RF cyanocobalamin (vitamin B-12) 500 mcg Tablet 500 mcg PO BID 0RF psyllium Powder 1 tsp PO DAILY 0RF buspirone 7.5 mg Tablet 7.5 mg PO BID 0RF docusate sodium 100 mg Tablet 100 mg PO DAILY PRN (Reason: Constipation) 0RF acamprosate 333 mg Tablet,Delayed Release (Dr/Ec) 333 mg PO TID 0RF clotrimazole 1 % Solution 1 appl TOPICAL BID 0RF Rx Instructions: TOES AND TOENAIL thiamine HCl (vitamin B1) 100 mg Tablet 100 mg PO DAILY 0RF olanzapine 10 mg Tablet 10 mg PO BEDTIME 0RF amoxicillin-pot clavulanate [Augmentin] 875-125 mg tablet 1 tab PO BID Qty: 20 0RF tramadol 50 mg tablet 50 mg PO Q6H PRN (Reason: pain) Qty: 20 0RF benzonatate 100 mg capsule 100 mg PO TID 0RF budesonide-formoterol 160-4.5 mcg/actuation HFA aerosol inhaler 2 puff inhalation BID 0RF Spiriva Respimat 2.5 mcg/actuation mist 2 puff inhalation DAILY 0RF gabapentin 100 mg capsule 100 mg PO BID 0RF folic acid 1 mg tablet 1 mg PO DAILY 0RF tamsulosin 0.4 mg capsule 0.4 mg PO DAILY 0RF Interventions: ED Discharge Assessment Last Done: 09/22/21 02:57 Discharge Date/Time: 09/22/21 02:57
--- NOTE | 2021-09-22 00:31 | PC.NURSE ---
pt refusing blood work at this time, RN aware.
[2021-09-22 00:44] LABS: MANUAL DIFF FLAG NO
[2021-09-22 00:44] LABS: INTERNATIONAL NORM RATIO 0.9 (0.9-1.1); Prothrombin Time 10.4 SEC (9.9-13.0)
[2021-09-22 00:45] LABS: Basophils Percent Auto 0.1 % (0-2); Eosinophils Absolute Auto 0.1 X10*3/uL (0.0-0.4); Hematocrit 40.2 % (42.0-52.0); Hemoglobin 13.9 g/dl (14.0-18.0); Imm Gran Abs Auto 0.02 X10*3/uL (0.00-0.03); Imm Gran Pct Auto 0.3 % (0.0-0.4); Lymphocytes Absolute Auto 1.4 X10*3/uL (1.2-4.9); Lymphocytes Percent Auto 21.3 % (20-40); Mean Corpuscular HGB Conc 34.6 g/dl (31.0-36.0); Mean Corpuscular Hemoglobin 32.1 pg (27.0-33.0); Mean Corpuscular Volume 92.8 fL (80.0-98.0); Mean Platelet Volume 9.2 fL (9.4-12.4); Monocytes Absolute Auto 0.4 X10*3/uL (0.1-1.2); Monocytes Percent Auto 6.4 % (2-11); Neutrophils Absolute Auto 4.8 x10*3/uL (2.0-8.3); Neutrophils Percent Auto 70.9 % (45-73); Platelet Count 207 X10*3/uL (160-400); Red Blood Count 4.33 X10*6/uL (4.60-5.80); Red Cell Distribution Width 13.1 % (11.0-16.0); White Blood Count 6.7 X10*3/uL (4.8-10.8)
[2021-09-22 00:59] LABS: Ethanol < 10 mg/dL
[2021-09-22 01:01] LABS: COVID-19 Test Positive (Negative)
[2021-09-22 01:02] LABS: Alanine Aminotransferase 16 U/L (0-40); Albumin Level 3.7 g/dL (3.5-5.0); Alkaline Phosphatase 94 U/L (39-117); Anion Gap 14 (12-20); Aspartate Amino Transferase 23 U/L (5-37); Bilirubin Total 0.3 mg/dL (0.0-1.0); Blood Urea Nitrogen 7 mg/dL (9-16); Calcium 8.5 mg/dL (8.4-10.2); Carbon Dioxide 23 mmol/L (22-29); Chloride 100 mmol/L (96-108); Creatinine Clr Calc Pharmacy 76.6; Estimated Glomerular Filt Rate > 60; Glucose Random 110 mg/dL (60-115); Lipase 37 U/L (8-78); Potassium 3.8 mmol/L (3.3-5.1); Sodium 133 mmol/L (135-145); Total Protein 6.1 g/dL (6.5-8.0)
[2021-09-22 01:11] LABS: VBG HCO3 23 mmol/L (22-26); VBG pCO2 37 mmHg; VBG pO2 31 mmHg
[2021-09-22 01:19] LABS: Venous Blood Gas Refer to POC result
[2021-09-22] MEDS: Magnesium Citrate 300 ML SOLUTION PO (01:33)
[2021-09-22 02:51] VITALS: BP 100/56; PULSE 88; RESP 20; O2SAT 98
--- NOTE | 2021-09-22 02:54 | PC.NURSE ---
pt a&o, no increase of sob or chest pain. pt able to ambulate with a steady gait. Reviewed discharge instruction and pt verbalized understanding.
== END 2021-09-22 02:57 | disposition home or self-care (01) ==
PROVIDERS: Emergency Provider Student in an Organized Health Care Education/Training Program
DX: U07.1 COVID-19 (principal); J44.9 Chronic obstructive pulmonary disease, unspecified; R07.9 Chest pain, unspecified; K59.00 Constipation, unspecified; R79.89 Other specified abnormal findings of blood chemistry; Z79.899 Other long term (current) drug therapy; Z20.822 Contact with and (suspected) exposure to COVID-19
CPT/HCPCS: 36415; 71045; 74018; 80053; 82077; 82803; 83690; 85025; 85610; 87635; 93005; 99283; 99284

== ENCOUNTER 2021-10-28 06:35 | Inpatient (IN) | payer MEDICARE, BC, SELFPAY ==
[2021-10-28] VITALS (12 sets, daily range): BP systolic 118–142; BP diastolic 56–76; PULSE 85–112; RESP 16–24; TEMP 36.3–37.2; O2SAT 88–100; BMI 20.1
--- NOTE | ~2021-10-28 | XR_ITS ---
EXAMINATION: XR CHEST CLINICAL INFORMATION: Dyspnea. Covid. COMPARISON: September 21, 2021 and September 15, 2021 TECHNIQUE: AP portable view of the chest was obtained. FINDINGS: Lungs are hyperinflated. There is diminished vasculature seen peripherally as well as what appears to be some bullous change left base. No confluent parenchymal disease identified. No pneumothorax is seen. No pleural effusion. Heart normal size. No pulmonary edema. Chronic pleural parenchymal scarring left base. Old left rib fracture. XR/XR chest 1V IMPRESSION: COPD. No acute disease.
--- NOTE | 2021-10-28 06:54 | ECG_ITS ---
Test Reason : dyspnea Blood Pressure : / mmHG Vent. Rate : 101 BPM Atrial Rate : 101 BPM P-R Int : 138 ms QRS Dur : 072 ms QT Int : 348 ms P-R-T Axes : 081 069 074 degrees QTc Int : 451 ms Sinus tachycardia with Premature supraventricular complexes Otherwise normal ECG When compared with ECG of 21-SEP-2021 23:41, No significant change was found Referred By: Sharifa Benedict Electronically Signed By:Cuauhtemoc Doherty
--- NOTE | 2021-10-28 07:00 | ED.SOB ---
HPI - SOB/Dyspnea General Chief Complaint: Dyspnea Stated Complaint: sob,covid+ Time Seen by Provider: 10/28/21 06:53 Source: patient and EMS Mode of arrival: EMS Limitations: other (poor historian, agitated fighting the whole time) History of Present Illness HPI Narrative: COPD not on home O2 EMS found him 88% on RA states he was vaccinated with Pfizer 2nd shot 1.5 weeks ago states his roommate had COVID and he himself tested positive a few days ago. His breathing worsened in the middle of the night. He is a very poor historian and unreliable at this time. He states don't touch me. several times then asked for help and states he is scared. He tells me has schizophrenia. MD elicited complaint: shortness of breath, cough and anxiety Pertinent past history: COPD and other (COVID +) Onset (ago): day(s) (1) Context: recent illness and smoke/fume exposure Timing: progressively worsening Severity: moderate Exacerbating factors: exertion, movement and coughing Relieving factors: oxygen, rest and bronchodilators Known history of: COPD Associated symptoms: cough, wheezing and sputum production Treatment prior to arrival: oxygen Related Data Home Medications Medication Instructions Recorded Confirmed benzonatate 100 mg capsule 100 mg PO TID 03/03/21 03/18/21 budesonide-formoterol HFA 160 2 puff INHALATION BID 03/03/21 03/18/21 mcg-4.5 mcg/actuation aerosol inhaler folic acid 1 mg tablet 1 mg PO DAILY 03/03/21 03/18/21 gabapentin 100 mg capsule 100 mg PO BID 03/03/21 03/18/21 tamsulosin 0.4 mg capsule 0.4 mg PO DAILY 03/03/21 03/18/21 tiotropium bromide 2.5 2 puff INHALATION DAILY 03/03/21 03/18/21 mcg/actuation mist for inhalation acamprosate 333 mg tablet,delayed 333 mg PO TID 03/18/21 03/18/21 release acetaminophen 500 mg tablet 500 mg PO TID PRN 03/18/21 03/18/21 buspirone 7.5 mg tablet 7.5 mg PO BID 03/18/21 03/18/21 clotrimazole 1 % topical solution 1 appl TOPICAL BID 03/18/21 03/18/21 cyanocobalamin (vitamin B-12) 500 500 mcg PO BID 03/18/21 03/18/21 mcg tablet docusate sodium 100 mg tablet 100 mg PO DAILY PRN 03/18/21 03/18/21 guaifenesin 600 mg tablet,extended 600 mg PO BID 03/18/21 03/18/21 release hydroxyzine HCl 10 mg tablet 10 mg PO DAILY PRN 03/18/21 03/18/21 olanzapine 10 mg tablet 10 mg PO BEDTIME 03/18/21 03/18/21 psyllium 1 tsp PO DAILY 03/18/21 03/18/21 thiamine HCl (vitamin B1) 100 mg 100 mg PO DAILY 03/18/21 03/18/21 tablet Previous Rx's Medication Instructions Recorded albuterol sulfate 90 mcg/actuation 1 inh INHALATION QID PRN #18 g 07/06/20 aerosol inhaler amoxicillin 875 mg-potassium 1 tab PO BID #20 tab 09/11/21 clavulanate 125 mg tablet (Augmentin) tramadol 50 mg tablet 50 mg PO Q6H PRN #20 tab 09/11/21 Allergies Allergy/AdvReac Type Severity Reaction Status Date / Time tree and shrub pollen Allergy Mild Rash Verified 10/28/21 06:48 Review of Systems Review of Systems: Constitutional : No Fever, pos Chills ENT/Mouth : No sore throat, No Rhinorrhea, No Swallowing Difficulty Eyes: No Eye Pain, No Swelling, No Redness Cardiovascular : No Chest Pain, positive SOB, No Orthopnea, no Edema Respiratory : pos Cough, pos Sputum, pos Wheezing, positive dyspnea Gastrointestinal : No Nausea, No Vomiting, No Diarrhea, No abdominal Pain, No Hematochezia, No Melena Genitourinary : No Dysuria, No Urinary Frequency, No Hematuria Musculoskeletal : No joint pain, No Myalgias Skin : No Skin Lesions, No rash Neuro : pos Weakness, No Numbness, No Dizziness, No Headache Psych : No Anxiety/Panic, No Depression Heme/Lymph: No Bruising, No Lymphadenopathy Endocrine : No Polyuria, No Polydipsia All other systems reviewed and are negative [facility] Past Medical History Attestation statement: The following information was validated with the patient. 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 Oriented X3. Mild acute distress. Anxious, agitated at times and fighting. Don't touch me. Eyes: Pupils equal, round and reactive to light. ENT: Pharynx normal. Neck: Normal inspection. Neck supple. CVS: tachycardic heart rate and rhythm. Pulses normal. Respiratory: Mild respiratory distress retractions and tachypnea. Breath sounds decreased throughout with wheezes vs coarse Abdomen: Soft and non-tender. Skin: Skin warm and dry. pale skin color. Normal skin turgor. Extremities: No lower extremity edema. No calf ttp Neuro: Oriented X 3. No motor deficit. No sensory deficit. Course Course Course Narrative: review of records show high WBC 28 with 17 bands - just had COVID Aug 2021 doubt COVID at this time much improved at this time after treatments and on Medrano given IV antibiotics overall he looks much better, tachypnea improved, stabilized feels better at this time no abdominal pain on exam MDM - SOB/Dyspnea MDM Narrative Medical decision making narrative: 65 yo male with hx schizophrenia, ETOH abuse, COPD not on home O2, current smoker states he just received his second covid shot but his roommate has COVID and he himself tested positive 3 days ago he notes he became ill 3 days ago but his breathing worsened in the middle of the night EMS found him 88% on RA. At this time will need labs, cultures, COVID panel, CXR, IV steroids, albuterol, place on medrano given his work of breathing. Anticipate admission to hospital. Lab Data Result diagrams: 10/28/21 07:11 10/28/21 06:59 Labs: Lab Results 10/28/21 10/28/21 10/28/21 Range/Units 06:58 06:58 06:58 WBC (4.8-10.8) X10*3/uL RBC (4.60-5.80) X10*6/uL Hgb (14.0-18.0) g/dl Hct (42.0-52.0) % MCV (80.0-98.0) fL MCH (27.0-33.0) pg MCHC (31.0-36.0) g/dl RDW (11.0-16.0) % Plt Count (160-400) X10*3/uL MPV (9.4-12.4) fL Immature Gran % (Auto) Neut % (Auto) Lymph % (Auto) [place] % (Auto) Eos % (Auto) Baso % (Auto) Lymph # (Auto) [place] # (Auto) Eos # (Auto) Baso # (Auto) Abs Immat Gran (auto) Absolute Neuts (auto) Absolute Nucleated RBC (0.0-0.012) X10*3/uL Nucleated RBC % (auto) (0.0-0.2) /100WBC Neutrophils % (Manual) (45-73) % Band Neutrophils % (3-5) % Lymphocytes % (Manual) (20-40) % Monocytes % (Manual) (2-11) % Abs Neuts (Manual) (2.0-8.3) X10*3/uL Lymphocytes # (Manual) (1.2-4.9) X10*3/uL Monocytes # (Manual) (0.1-1.2) X10*3/uL Toxic Vacuolation Platelet Estimate (NORMAL) Plt Morphology Comment RBC Morphology Ovalocytes /OIF [place] Cells /OIF PT (9.9-13.0) SEC INR (0.9-1.1) D-Dimer High Sensitivty NG/ML VBG pH (7.32-7.43) VBG pCO2 mmHg VBG pO2 mmHg VBG HCO3 (22-26) mmol/L VBG O2 Saturation % VBG Base Excess mmol/L Sodium (135-145) mmol/L Potassium (3.3-5.1) mmol/L Chloride (96-108) mmol/L Carbon Dioxide (22-29) mmol/L Anion Gap (12-20) BUN (9-16) mg/dL Creatinine (0.5-1.4) mg/dL Estim Creat Clear Calc Estimated GFR Random Glucose (60-115) mg/dL Lactic Acid 1.4 (0.5-2.0) mmol/L Calcium (8.4-10.2) mg/dL Magnesium (1.6-2.6) mg/dL Ferritin (20-250) ng/mL Total Bilirubin (0.0-1.0) mg/dL Direct Bilirubin (0.0-0.5) mg/dL AST (5-37) U/L ALT (0-40) U/L Alkaline Phosphatase (39-117) U/L Troponin I High Sens < 3.5 (<3.5-35.0) ng/L C-Reactive Protein (< or = 0.50) mg/dL Total Protein (6.5-8.0) g/dL Albumin (3.5-5.0) g/dL Lipase (8-78) U/L Procalcitonin ng/mL Ethyl Alcohol mg/dL COVID-19 ([facility]) Negative (Negative) COVID-19 Clin Com See Note 10/28/21 10/28/21 10/28/21 Range/Units 06:59 06:59 07:07 WBC (4.8-10.8) X10*3/uL RBC (4.60-5.80) X10*6/uL Hgb (14.0-18.0) g/dl Hct (42.0-52.0) % MCV (80.0-98.0) fL MCH (27.0-33.0) pg MCHC (31.0-36.0) g/dl RDW (11.0-16.0) % Plt Count (160-400) X10*3/uL MPV (9.4-12.4) fL Immature Gran % (Auto) Neut % (Auto) Lymph % (Auto) [place] % (Auto) Eos % (Auto) Baso % (Auto) Lymph # (Auto) [place] # (Auto) Eos # (Auto) Baso # (Auto) Abs Immat Gran (auto) Absolute Neuts (auto) Absolute Nucleated RBC (0.0-0.012) X10*3/uL Nucleated RBC % (auto) (0.0-0.2) /100WBC Neutrophils % (Manual) (45-73) % Band Neutrophils % (3-5) % Lymphocytes % (Manual) (20-40) % Monocytes % (Manual) (2-11) % Abs Neuts (Manual) (2.0-8.3) X10*3/uL Lymphocytes # (Manual) (1.2-4.9) X10*3/uL Monocytes # (Manual) (0.1-1.2) X10*3/uL Toxic Vacuolation Platelet Estimate (NORMAL) Plt Morphology Comment RBC Morphology Ovalocytes /OIF [place]isela Cells /OIF PT 11.1 (9.9-13.0) SEC INR 1.0 (0.9-1.1) D-Dimer High Sensitivty 155 NG/ML VBG pH 7.33 (7.32-7.43) VBG pCO2 49 mmHg VBG pO2 38 mmHg VBG HCO3 26 (22-26) mmol/L VBG O2 Saturation 55.0 % VBG Base Excess -0.5 mmol/L Sodium 138 (135-145) mmol/L Potassium 4.2 (3.3-5.1) mmol/L Chloride 101 (96-108) mmol/L Carbon Dioxide 27 (22-29) mmol/L Anion Gap 14 (12-20) BUN 10 (9-16) mg/dL Creatinine 0.80 (0.5-1.4) mg/dL Estim Creat Clear Calc 63.2 Estimated GFR > 60 Random Glucose 145 H (60-115) mg/dL Lactic Acid (0.5-2.0) mmol/L Calcium 9.6 D (8.4-10.2) mg/dL Magnesium 2.2 (1.6-2.6) mg/dL Ferritin (20-250) ng/mL Total Bilirubin 0.8 (0.0-1.0) mg/dL Direct Bilirubin 0.3 (0.0-0.5) mg/dL AST 17 (5-37) U/L ALT 14 (0-40) U/L Alkaline Phosphatase 140 H D (39-117) U/L Troponin I High Sens (<3.5-35.0) ng/L C-Reactive Protein 0.90 H (< or = 0.50) mg/dL Total Protein 7.2 (6.5-8.0) g/dL Albumin 4.2 (3.5-5.0) g/dL Lipase 35 (8-78) U/L Procalcitonin ng/mL Ethyl Alcohol mg/dL COVID-19 ([facility]) (Negative) COVID-19 Clin Com 10/28/21 10/28/21 10/28/21 Range/Units 07:11 07:11 07:11 WBC 28.2 H (4.8-10.8) X10*3/uL RBC 4.76 (4.60-5.80) X10*6/uL Hgb 15.2 (14.0-18.0) g/dl Hct 45.0 (42.0-52.0) % MCV 94.5 (80.0-98.0) fL MCH 31.9 (27.0-33.0) pg MCHC 33.8 (31.0-36.0) g/dl RDW 14.3 (11.0-16.0) % Plt Count 362 D (160-400) X10*3/uL MPV 9.0 L (9.4-12.4) fL Immature Gran % (Auto) Cancelled Neut % (Auto) Cancelled Lymph % (Auto) Cancelled [place] % (Auto) Cancelled Eos % (Auto) Cancelled Baso % (Auto) Cancelled Lymph # (Auto) Cancelled [place] # (Auto) Cancelled Eos # (Auto) Cancelled Baso # (Auto) Cancelled Abs Immat Gran (auto) Cancelled Absolute Neuts (auto) Cancelled Absolute Nucleated RBC 0.000 (0.0-0.012) X10*3/uL Nucleated RBC % (auto) 0.0 (0.0-0.2) /100WBC Neutrophils % (Manual) 79 H (45-73) % Band Neutrophils % 17 H (3-5) % Lymphocytes % (Manual) 3 L (20-40) % Monocytes % (Manual) 1 L (2-11) % Abs Neuts (Manual) 27.1 H (2.0-8.3) X10*3/uL Lymphocytes # (Manual) 0.8 L (1.2-4.9) X10*3/uL Monocytes # (Manual) 0.3 (0.1-1.2) X10*3/uL Toxic Vacuolation PRESENT Platelet Estimate NORMAL (NORMAL) Plt Morphology Comment NORMAL RBC Morphology NOTED Ovalocytes 1+ (5-14) /OIF [place] Cells 1+ (0-2) /OIF PT (9.9-13.0) SEC INR (0.9-1.1) D-Dimer High Sensitivty NG/ML VBG pH (7.32-7.43) VBG pCO2 mmHg VBG pO2 mmHg VBG HCO3 (22-26) mmol/L VBG O2 Saturation % VBG Base Excess mmol/L Sodium (135-145) mmol/L Potassium (3.3-5.1) mmol/L Chloride (96-108) mmol/L Carbon Dioxide (22-29) mmol/L Anion Gap (12-20) BUN (9-16) mg/dL Creatinine (0.5-1.4) mg/dL Estim Creat Clear Calc Estimated GFR Random Glucose (60-115) mg/dL Lactic Acid (0.5-2.0) mmol/L Calcium (8.4-10.2) mg/dL Magnesium (1.6-2.6) mg/dL Ferritin 67 (20-250) ng/mL Total Bilirubin (0.0-1.0) mg/dL Direct Bilirubin (0.0-0.5) mg/dL AST (5-37) U/L ALT (0-40) U/L Alkaline Phosphatase (39-117) U/L Troponin I High Sens (<3.5-35.0) ng/L C-Reactive Protein (< or = 0.50) mg/dL Total Protein (6.5-8.0) g/dL Albumin (3.5-5.0) g/dL Lipase (8-78) U/L Procalcitonin 0.03 ng/mL Ethyl Alcohol mg/dL COVID-19 ([facility]) (Negative) COVID-19 Clin Com 10/28/21 Range/Units 07:11 WBC (4.8-10.8) X10*3/uL RBC (4.60-5.80) X10*6/uL Hgb (14.0-18.0) g/dl Hct (42.0-52.0) % MCV (80.0-98.0) fL MCH (27.0-33.0) pg MCHC (31.0-36.0) g/dl RDW (11.0-16.0) % Plt Count (160-400) X10*3/uL MPV (9.4-12.4) fL Immature Gran % (Auto) Neut % (Auto) Lymph % (Auto) [place] % (Auto) Eos % (Auto) Baso % (Auto) Lymph # (Auto) [place] # (Auto) Eos # (Auto) Baso # (Auto) Abs Immat Gran (auto) Absolute Neuts (auto) Absolute Nucleated RBC (0.0-0.012) X10*3/uL Nucleated RBC % (auto) (0.0-0.2) /100WBC Neutrophils % (Manual) (45-73) % Band Neutrophils % (3-5) % Lymphocytes % (Manual) (20-40) % Monocytes % (Manual) (2-11) % Abs Neuts (Manual) (2.0-8.3) X10*3/uL Lymphocytes # (Manual) (1.2-4.9) X10*3/uL Monocytes # (Manual) (0.1-1.2) X10*3/uL Toxic Vacuolation Platelet Estimate (NORMAL) Plt Morphology Comment RBC Morphology Ovalocytes /OIF [place] Cells /OIF PT (9.9-13.0) SEC INR (0.9-1.1) D-Dimer High Sensitivty NG/ML VBG pH (7.32-7.43) VBG pCO2 mmHg VBG pO2 mmHg VBG HCO3 (22-26) mmol/L VBG O2 Saturation % VBG Base Excess mmol/L Sodium (135-145) mmol/L Potassium (3.3-5.1) mmol/L Chloride (96-108) mmol/L Carbon Dioxide (22-29) mmol/L Anion Gap (12-20) BUN (9-16) mg/dL Creatinine (0.5-1.4) mg/dL Estim Creat Clear Calc Estimated GFR Random Glucose (60-115) mg/dL Lactic Acid (0.5-2.0) mmol/L Calcium (8.4-10.2) mg/dL Magnesium (1.6-2.6) mg/dL Ferritin (20-250) ng/mL Total Bilirubin (0.0-1.0) mg/dL Direct Bilirubin (0.0-0.5) mg/dL AST (5-37) U/L ALT (0-40) U/L Alkaline Phosphatase (39-117) U/L Troponin I High Sens (<3.5-35.0) ng/L C-Reactive Protein (< or = 0.50) mg/dL Total Protein (6.5-8.0) g/dL Albumin (3.5-5.0) g/dL Lipase (8-78) U/L Procalcitonin ng/mL Ethyl Alcohol < 10 mg/dL COVID-19 ([facility]) (Negative) COVID-19 Clin Com ECG Data Attestation: I personally reviewed and interpreted this ECG as follows: ECG interpretation date: 10/28/21 ECG interpretation time: 07:17 Interpretation: Rate: 101 Rhythm: sinus tachycardia [place]: normal Normal P waves. Normal MAGDY. Normal QRS complex. ST T wave : normal no CONCHIS qTC: normal prior studies: no acute ischemia The study has been interpreted contemporaneously by me. . Critical Care Time Critical Care Time Critical Care Time: Yes Total Critical Care Time: 60 Attestation: 5mg neb, review of records, repeat assessments, treatment of hypoxia with medrano I attest to this time spent taking care of the patient Discharge Plan Discharge Clinical Impression: Hypoxia COPD (chronic obstructive pulmonary disease) Qualifiers: COPD type: COPD with acute exacerbation Qualified Code(s): J44.1 - Chronic obstructive pulmonary disease with (acute) exacerbation Leukocytosis Qualifiers: Leukocytosis type: unspecified Qualified Code(s): D72.829 - Elevated white blood cell count, unspecified Patient Disposition: Admitted As Inpatient
[2021-10-28] MEDS: Albuterol Sulfate (0.083%) 2.5 MG/3 ML VIAL.NEB 5 MG INHALE (07:04)
[2021-10-28 07:14] LABS: Venous Blood Gas Refer to POC result
[2021-10-28 07:15] LABS: Prothrombin Time 11.1 SEC (9.9-13.0)
[2021-10-28 07:15] LABS: VBG Base Excess -0.5 mmol/L; VBG HCO3 26 mmol/L (22-26); VBG pCO2 49 mmHg; VBG pH 7.33 (7.32-7.43); VBG pO2 38 mmHg
[2021-10-28 07:17] LABS: D Dimer High Sensitivity 155 NG/ML
[2021-10-28 07:17] LABS: Hemoglobin 15.2 g/dl (14.0-18.0); Mean Corpuscular HGB Conc 33.8 g/dl (31.0-36.0); Mean Corpuscular Hemoglobin 31.9 pg (27.0-33.0); Mean Corpuscular Volume 94.5 fL (80.0-98.0); Platelet Count 362 X10*3/uL (160-400); Red Blood Count 4.76 X10*6/uL (4.60-5.80); Red Cell Distribution Width 14.3 % (11.0-16.0); White Blood Count 28.2 X10*3/uL (4.8-10.8)
[2021-10-28] MEDS: Acetaminophen 325 MG TABLET 650 MG PO (07:19)
[2021-10-28] MEDS: Magnesium Sulfate/H2O 2 GM/50 ML PIGGYBACK IV (07:20)
[2021-10-28] MEDS: cefTRIAXone sodium 1 GM in 0.9 % Sodium Chloride 50 ML IV (07:20)
[2021-10-28 07:21] LABS: Lactic Acid 1.4 mmol/L (0.5-2.0)
[2021-10-28 07:25] LABS: Alanine Aminotransferase 14 U/L (0-40); Albumin Level 4.2 g/dL (3.5-5.0); Alkaline Phosphatase 140 U/L (39-117); Anion Gap 14 (12-20); Aspartate Amino Transferase 17 U/L (5-37); Bilirubin Direct 0.3 mg/dL (0.0-0.5); Bilirubin Total 0.8 mg/dL (0.0-1.0); Blood Urea Nitrogen 10 mg/dL (9-16); Calcium 9.6 mg/dL (8.4-10.2); Carbon Dioxide 27 mmol/L (22-29); Chloride 101 mmol/L (96-108); Creatinine Clr Calc Pharmacy 63.2; Estimated Glomerular Filt Rate > 60; Glucose Random 145 mg/dL (60-115); Lipase 35 U/L (8-78); Magnesium 2.2 mg/dL (1.6-2.6); Potassium 4.2 mmol/L (3.3-5.1); Sodium 138 mmol/L (135-145); Total Protein 7.2 g/dL (6.5-8.0)
[2021-10-28 07:28] LABS: Ethanol < 10 mg/dL
[2021-10-28 07:36] LABS: Troponin-I High Sensitivity < 3.5 ng/L (<3.5-35.0)
[2021-10-28] MEDS: dexAMETHasone sod phosphate 4 MG/ML VIAL 6 MG IVPUSH (07:37)
[2021-10-28 07:38] LABS: COVID-19 Test Negative (Negative)
[2021-10-28 07:43] LABS: Band Neutrophils Percent 17 % (3-5); Lymphocytes Absolute Manual 0.8 X10*3/uL (1.2-4.9); Lymphocytes Percent Manual 3 % (20-40); Monocytes Absolute Manual 0.3 X10*3/uL (0.1-1.2); Monocytes Percent Manual 1 % (2-11); Neutrophils Absolute Manual 27.1 X10*3/uL (2.0-8.3); Neutrophils Percent Manual 79 % (45-73)
[2021-10-28 07:44] LABS: Burr Cells 1+ (0-2) /OIF; Ovalocytes 1+ (5-14) /OIF; Platelet Estimate NORMAL (NORMAL); Platelet Morphology Comment NORMAL; RBC Morphology NOTED; Toxic Vacuolation PRESENT
[2021-10-28 07:51] LABS: Ferritin 67 ng/mL (20-250); Procalcitonin 0.03 ng/mL
--- NOTE | 2021-10-28 07:53 | PC.NURSE ---
PT REFUSED SECOND SET OF BLOOD CULTURES
[2021-10-28] MEDS: Doxycycline Hyclate 100 MG in 0.9 % Sodium Chloride 250 ML 166.67 MG IV (08:57)
--- NOTE | 2021-10-28 09:58 | P.HPHOSP_ITS ---
History of Present Illness Date of Service: 10/28/21 Chief Complaint: dyspnea Patient is a poor historian; despite my repeated efforts to engage him, he asks that I leave him alone. Therefore, this history is per the ED physician Dr Sharifa Benedict and review of the EHR. 65yo M with paranoid schizophrenia and COPD, not on home O2, Covid-19 diagnosed 09/22/21 though he insists that he tested positive a few days ago . EMS was called due to worsening dyspnea and non-productive cough overnight. EMS was called and found him in respiratory distress with SaO2 of 88%. He arrived tachypneic and on 6L O2 via NC. He was placed on Medrano nasal cannula. He was given 5 mg nebulized albuterol and 6 mg of IV dexamethasone, along with ceftriaxone and doxycycline. CXR without infiltrate. Noted to have marked leukocytosis with WBCs 28.2 and 17% bands. Procalcitonin low at 0.03 and Covid- 19 SLOAN negative. Currently comfortable appearing but refusing to speak with me. 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 Meds Allergies Allergy/AdvReac Type Severity Reaction Status Date / Time tree and shrub pollen Allergy Mild Rash Verified 10/28/21 06:48 Active Medications: Current Medications Acetaminophen (Acetaminophen 325 Mg Tablet) 650 mg PO Q6H PRN PRN Reason: Pain, Mild (Pain Scale 1-3) Albuterol Sulfate (Albuterol Sulfate (0.083%) 2.5 Mg/3 Ml Vial.Neb) 2.5 mg INHALE Q2H PRN PRN Reason: shortness of breath or wheeze Albuterol/Ipratropium (Albuterol/Iprat 2.5/0.5mg 3 Ml Ampul.Neb) 3 ml INHALE RQ4H WHILE AWAKE [facility] Enoxaparin Sodium (Enoxaparin Sodium 40 Mg/0.4 Ml Syringe) 40 mg SUBCUT Q24H [facility] Methylprednisolone Sodium Succinate (Methylprednisolone Sod Succ 40 Mg/Ml Vial) 40 mg IVPUSH Q12H [facility] Pharmacy Consult (Consult Rx Perform Med Rec) 1 each MISCELLANE ONCE PRN PRN Reason: Consult order Pharmacy Consult (Consult Rx Perform Med Rec) 1 each MISCELLANE STAT STA Stop: 10/28/21 09:56 Sodium Chloride (0.9 % Sodium Chloride Flush 3 Ml Syringe) 3 ml IVFLUSH QSHIFT [facility] Home Medications Medication Instructions Recorded Confirmed Last Taken Type benzonatate 100 mg capsule 100 mg PO TID 03/03/21 03/18/21 Unknown History budesonide-formoterol HFA 160 2 puff INHALATION BID 03/03/21 03/18/21 Unknown History mcg-4.5 mcg/actuation aerosol inhaler folic acid 1 mg tablet 1 mg PO DAILY 03/03/21 03/18/21 Unknown History gabapentin 100 mg capsule 100 mg PO BID 03/03/21 03/18/21 Unknown History tamsulosin 0.4 mg capsule 0.4 mg PO DAILY 03/03/21 03/18/21 Unknown History tiotropium bromide 2.5 2 puff INHALATION DAILY 03/03/21 03/18/21 Unknown History mcg/actuation mist for inhalation acamprosate 333 mg tablet,delayed 333 mg PO TID 03/18/21 03/18/21 Unknown History release acetaminophen 500 mg tablet 500 mg PO TID PRN 03/18/21 03/18/21 Unknown History buspirone 7.5 mg tablet 7.5 mg PO BID 03/18/21 03/18/21 Unknown History clotrimazole 1 % topical solution 1 appl TOPICAL BID 03/18/21 03/18/21 Unknown History cyanocobalamin (vitamin B-12) 500 500 mcg PO BID 03/18/21 03/18/21 Unknown History mcg tablet docusate sodium 100 mg tablet 100 mg PO DAILY PRN 03/18/21 03/18/21 Unknown History guaifenesin 600 mg tablet,extended 600 mg PO BID 03/18/21 03/18/21 Unknown History release hydroxyzine HCl 10 mg tablet 10 mg PO DAILY PRN 03/18/21 03/18/21 Unknown History olanzapine 10 mg tablet 10 mg PO BEDTIME 03/18/21 03/18/21 Unknown History psyllium 1 tsp PO DAILY 03/18/21 03/18/21 Unknown History thiamine HCl (vitamin B1) 100 mg 100 mg PO DAILY 03/18/21 03/18/21 Unknown History tablet Physical Exam Vital Signs and Narrative: Vital Signs: Last Vital Signs Temp 99 F 10/28/21 08:57 Pulse 96 10/28/21 08:16 Resp 20 10/28/21 08:16 BP 121/57 L 10/28/21 08:16 Pulse Ox 100 10/28/21 08:16 Oxygen Flow Rate 6 10/28/21 06:48 BMI result Body Mass Index 20.1 Gen: in no acute distress though upon arrival in ED was tachypneic and audibly wheezing HEENT: sclera anicteric, moist mucus membranes Neck: supple Lungs: diminished, bilateral expiratory wheezing Heart: regular rate and rhythm, no murmurs Abd: soft, non-tender, non-distended Ext: no edema Skin: warm/well-perfused Neuro: alert but refusing to cooperative with examination Psych: restricted affect Results Labs CBC and Chem 7: 10/28/21 07:11 10/28/21 06:59 Labs: Laboratory Results - last 24 hr 10/28/21 10/28/21 10/28/21 06:58 06:58 06:59 MCV MCH MCHC RDW Plt Count MPV Immature Gran % (Auto) Neut % (Auto) Lymph % (Auto) Johnston % (Auto) Eos % (Auto) Baso % (Auto) Lymph # (Auto) Johnston # (Auto) Eos # (Auto) Baso # (Auto) Abs Immat Gran (auto) Absolute Neuts (auto) Absolute Nucleated RBC Nucleated RBC % (auto) Neutrophils % (Manual) Band Neutrophils % Lymphocytes % (Manual) Monocytes % (Manual) Abs Neuts (Manual) Lymphocytes # (Manual) Monocytes # (Manual) Toxic Vacuolation Platelet Estimate Plt Morphology Comment RBC Morphology Ovalocytes Gurnee Cells PT INR D-Dimer High Sensitivty VBG pH VBG pCO2 VBG pO2 VBG HCO3 VBG O2 Saturation VBG Base Excess Anion Gap 14 Estim Creat Clear Calc 63.2 Estimated GFR > 60 Random Glucose 145 H Lactic Acid 1.4 Calcium 9.6 D Magnesium 2.2 Ferritin Total Bilirubin 0.8 Direct Bilirubin 0.3 AST 17 ALT 14 Alkaline Phosphatase 140 H D C-Reactive Protein 0.90 H Total Protein 7.2 Albumin 4.2 Lipase 35 Procalcitonin Ethyl Alcohol COVID-19 ([facility]OAN) Negative COVID-19 Clin Com See Note 10/28/21 10/28/21 10/28/21 06:59 07:07 07:11 MCV 94.5 MCH 31.9 MCHC 33.8 RDW 14.3 Plt Count 362 D MPV 9.0 L Immature Gran % (Auto) Cancelled Neut % (Auto) Cancelled Lymph % (Auto) Cancelled Johnston % (Auto) Cancelled Eos % (Auto) Cancelled Baso % (Auto) Cancelled Lymph # (Auto) Cancelled Johnston # (Auto) Cancelled Eos # (Auto) Cancelled Baso # (Auto) Cancelled Abs Immat Gran (auto) Cancelled Absolute Neuts (auto) Cancelled Absolute Nucleated RBC 0.000 Nucleated RBC % (auto) 0.0 Neutrophils % (Manual) 79 H Band Neutrophils % 17 H Lymphocytes % (Manual) 3 L Monocytes % (Manual) 1 L Abs Neuts (Manual) 27.1 H Lymphocytes # (Manual) 0.8 L Monocytes # (Manual) 0.3 Toxic Vacuolation PRESENT Platelet Estimate NORMAL Plt Morphology Comment NORMAL RBC Morphology NOTED Ovalocytes 1+ (5-14) Gurnee Cells 1+ (0-2) PT 11.1 INR 1.0 D-Dimer High Sensitivty 155 VBG pH 7.33 VBG pCO2 49 VBG pO2 38 VBG HCO3 26 VBG O2 Saturation 55.0 VBG Base Excess -0.5 Anion Gap Estim Creat Clear Calc Estimated GFR Random Glucose Lactic Acid Calcium Magnesium Ferritin Total Bilirubin Direct Bilirubin AST ALT Alkaline Phosphatase C-Reactive Protein Total Protein Albumin Lipase Procalcitonin Ethyl Alcohol COVID-19 ([facility]) COVID-19 [employer] Com 10/28/21 10/28/21 10/28/21 07:11 07:11 07:11 MCV MCH MCHC RDW Plt Count MPV Immature Gran % (Auto) Neut % (Auto) Lymph % (Auto) Johnston % (Auto) Eos % (Auto) Baso % (Auto) Lymph # (Auto) Johnston # (Auto) Eos # (Auto) Baso # (Auto) Abs Immat Gran (auto) Absolute Neuts (auto) Absolute Nucleated RBC Nucleated RBC % (auto) Neutrophils % (Manual) Band Neutrophils % Lymphocytes % (Manual) Monocytes % (Manual) Abs Neuts (Manual) Lymphocytes # (Manual) Monocytes # (Manual) Toxic Vacuolation Platelet Estimate Plt Morphology Comment RBC Morphology Ovalocytes Gurnee Cells PT INR D-Dimer High Sensitivty VBG pH VBG pCO2 VBG pO2 VBG HCO3 VBG O2 Saturation VBG Base Excess Anion Gap Estim Creat Clear Calc Estimated GFR Random Glucose Lactic Acid Calcium Magnesium Ferritin 67 Total Bilirubin Direct Bilirubin AST ALT Alkaline Phosphatase C-Reactive Protein Total Protein Albumin Lipase Procalcitonin 0.03 Ethyl Alcohol < 10 COVID-19 ([facility]AN) COVID-19 Clin Com ITS Impressions Chest X-Ray 10/28/21 08:03 IMPRESSION: COPD. No acute disease. Imaging Radiologist's Impressions: Impressions Chest X-Ray 10/28/21 08:03 IMPRESSION: COPD. No acute disease. Assessment and Plan (1) Leukocytosis: Qualifiers: Leukocytosis type: unspecified Qualified Code(s): D72.829 - Elevated white blood cell count, unspecified Status: Acute (2) Hypoxia: Status: Acute (3) COPD (chronic obstructive pulmonary disease): Status: Acute Plan 65yo M with COPD, tobacco abuse, paranoid schizophrenia presenting with dyspnea and hypoxia concerning for COPD exacerbation # COPD exacerbation - admit to M/S, give methlyprednisolone IV, standing/prn bronchodilators, check RVP, no antibiotics for now in the absence of purulent sputum # acute hypoxic respiratory failure - supplemental O2, wean as tolerated; no evidence of CO2 retention # schizophrenia - continue home meds once med reconciliation done # VTE ppx - LMWH, SCDs # code - full by default In my professional opinion, patient likely will stay 2 midnights in hospital due to hypoxic respiratory failure. Quality Stroke Does the patient have a stroke diagnosis?: No VTE Prior VTE?: No VTE Risk Level:: Medical - moderate - high VTE Device Contraindication: N/A - Device Ordered VTE Drug Contraindication: N/A - Med Ordered
--- NOTE | 2021-10-28 10:53 | PHA.MEDREC ---
Pharmacy Consult ? Medication Reconciliation Pharmacy has completed the medication reconciliation. Patient is a CT patient. Recieve list from CT. Jose LoveD
[2021-10-28] MEDS: Albuterol/Iprat 2.5/0.5MG 3 ML AMPUL.NEB INHALE ×2 (11:48→19:55)
--- NOTE | 2021-10-28 12:15 | PC.NURSE ---
pt transfered from ED, respiratory met pt in room, sob/difficulty breathing on bed transfer, respiratory administering nebulizer. pt declined second set of blood cultures per ED nurse, vss, 100% O2 during nebulizer treatment. Ok room air per repiratory. pt declining nicotine patch.
--- NOTE | 2021-10-28 14:30 | PC.NURSE ---
RN-RN given, pt transferring to 372.
[2021-10-28] MEDS: Acamprosate Calcium 333 MG TABLET.DR PO ×2 (15:48→19:34)
[2021-10-28] MEDS: 0.9 % Sodium Chloride Flush 3 ML SYRINGE IVFLUSH ×2 (15:50→19:37)
[2021-10-28] MEDS: Nicotine 21 MG PATCH.TD24 TRANSDERMA (17:54)
[2021-10-28] MEDS: ondansetron HCL 4 MG/2 ML VIAL IVPUSH (17:57)
[2021-10-28] MEDS: Benzonatate 100 MG CAPSULE PO (17:57)
[2021-10-28] MEDS: busPIRone HCl 5 MG TABLET 7.5 MG PO (19:34)
[2021-10-28] MEDS: Gabapentin 100 MG CAPSULE PO (19:35)
[2021-10-28] MEDS: Baclofen 10 MG TABLET PO (19:36)
[2021-10-28] MEDS: OLANZapine 10 MG TABLET PO (19:36)
[2021-10-28] MEDS: traZODone HCL 100 MG TABLET PO (19:36)
[2021-10-28] MEDS: methylPREDNISolone Sod Succ 40 MG/ML VIAL IVPUSH (21:26)
[2021-10-28] MEDS: hydrOXYzine HCL 10 MG TABLET PO (23:03)
[2021-10-28] MEDS: Docusate Sodium 100 MG CAPSULE PO (23:04)
[2021-10-29] VITALS (7 sets, daily range): BP systolic 114–128; BP diastolic 44–59; PULSE 76–88; RESP 16–20; TEMP 35.5–36.7; O2SAT 96–98; BMI 20.1
[2021-10-29] MEDS: Fluticasone/Vilanterol 200/25 BLST.W.DEV 1 PUFF INHALE (07:59)
[2021-10-29] MEDS: Albuterol/Iprat 2.5/0.5MG 3 ML AMPUL.NEB INHALE ×2 (07:59→20:33)
[2021-10-29] MEDS: Acamprosate Calcium 333 MG TABLET.DR PO ×3 (08:29→20:13)
[2021-10-29] MEDS: Tamsulosin HCL 0.4 MG CAPSULE PO (08:29)
[2021-10-29] MEDS: Gabapentin 100 MG CAPSULE PO ×2 (08:29→20:13)
[2021-10-29] MEDS: busPIRone HCl 5 MG TABLET 7.5 MG PO ×2 (08:29→20:13)
[2021-10-29] MEDS: Nicotine 21 MG PATCH.TD24 TRANSDERMA (08:29)
[2021-10-29] MEDS: Folic Acid 1 MG TABLET PO (08:29)
[2021-10-29] MEDS: methylPREDNISolone Sod Succ 40 MG/ML VIAL IVPUSH ×2 (08:30→20:14)
[2021-10-29] MEDS: 0.9 % Sodium Chloride Flush 3 ML SYRINGE IVFLUSH ×3 (08:30→20:14)
--- NOTE | 2021-10-29 11:03 | P.PNIM_ITS ---
Subjective Subjective Date of Service: 10/29/21 Interval History: Complaining of chest and nasal congestion, denies fever chills, overall feels better since admission but remains short of breath, requesting for refills prior to discharge. Review of Systems Review of Systems: Yes all other systems are reviewed and are negative Physical Exam Vital Signs: Vital Signs: Last Vital Signs Temp 96 F L 10/29/21 07:23 Pulse 88 10/29/21 08:00 Resp 20 10/29/21 08:00 BP 117/59 L 10/29/21 07:23 Pulse Ox 96 10/29/21 07:23 Oxygen Flow Rate 6 10/28/21 06:48 BMI result Body Mass Index 20.1 Const: Other: Gen: Awake alert in no acute distress Neck: supple no JVD Lungs: diminished breath sound bilaterally, scattered expiratory wheeze Heart: regular rate and rhythm, no murmurs Abd: soft, non-tender, non-distended Ext: no edema Skin: warm/well-perfused Neuro: Nonfocal Psych: Appropriate affect ? Objective Data Active Medications Acamprosate (Acamprosate Calcium 333 Mg Tablet.) 333 mg PO TID [facility] Last Admin: 10/29/21 08:29 Dose: 333 mg Documented by: YUSUF Acetaminophen (Acetaminophen 325 Mg Tablet) 650 mg PO Q6H PRN PRN Reason: Pain, Mild (Pain Scale 1-3) Albuterol Sulfate (Albuterol Sulfate (0.083%) 2.5 Mg/3 Ml Vial.Neb) 2.5 mg INHALE Q2H PRN PRN Reason: shortness of breath or wheeze Albuterol/Ipratropium (Albuterol/Iprat 2.5/0.5mg 3 Ml Ampul.Neb) 3 ml INHALE RQ4H WHILE AWAKE [facility] Last Admin: 10/29/21 07:59 Dose: 3 ml Documented by: VITO Baclofen (Baclofen 10 Mg Tablet) 10 mg PO QID PRN PRN Reason: muscle rigidity Last Admin: 10/28/21 19:36 Dose: 10 mg Documented by: CASTILM Benzonatate (Benzonatate 100 Mg Capsule) 100 mg PO TID PRN PRN Reason: Cough Last Admin: 10/28/21 17:57 Dose: 100 mg Documented by: GIAN Buspirone HCl (Buspirone Hcl 5 Mg Tablet) 7.5 mg PO BID [facility] Last Admin: 10/29/21 08:29 Dose: 7.5 mg Documented by: YUSUF Docusate Sodium (Docusate Sodium 100 Mg Capsule) 100 mg PO DAILY PRN PRN Reason: Constipation Last Admin: 10/28/21 23:04 Dose: 100 mg Documented by: FAVIAN Enoxaparin Sodium (Enoxaparin Sodium 40 Mg/0.4 Ml Syringe) 40 mg SUBCUT Q24H [facility] Last Admin: 10/29/21 09:11 Dose: Not Given Documented by: YUSUF Non-Admin Reason: Patient Refused Fluticasone/Vilanterol (Fluticasone/Vilanterol 200/25 Blst.W.Dev) 1 puff INHALE RDAILY [facility] Last Admin: 10/29/21 07:59 Dose: 1 puff Documented by: VITO Folic Acid (Folic Acid 1 Mg Tablet) 1 mg PO DAILY [facility] Last Admin: 10/29/21 08:29 Dose: 1 mg Documented by: YUSUF Gabapentin (Gabapentin 100 Mg Capsule) 100 mg PO BID [facility] Last Admin: 10/29/21 08:29 Dose: 100 mg Documented by: YUSUF Guaifenesin (Guaifenesin La 600 Mg Tab.Er.12h) 600 mg PO BID [facility] Hydroxyzine HCl (Hydroxyzine Hcl 10 Mg Tablet) 10 mg PO DAILY PRN PRN Reason: Anxiety Last Admin: 10/28/21 23:03 Dose: 10 mg Documented by: FAVIAN Methylprednisolone Sodium Succinate (Methylprednisolone Sod Succ 40 Mg/Ml Vial) 40 mg IVPUSH Q12H [facility] Last Admin: 10/29/21 08:30 Dose: 40 mg Documented by: YUSUF Nicotine (Nicotine 21 Mg Patch.Td24) 21 mg TRANSDERMA DAILY [facility] Last Admin: 10/29/21 08:29 Dose: 21 mg Documented by: YUSUF Olanzapine (Olanzapine 10 Mg Tablet) 10 mg PO BEDTIME [facility] Last Admin: 10/28/21 19:36 Dose: 10 mg Documented by: FAVIAN Ondansetron HCl (Ondansetron Hcl 4 Mg/2 Ml Vial) 4 mg IVPUSH Q8H PRN PRN Reason: Nausea and Vomiting Last Admin: 10/28/21 17:57 Dose: 4 mg Documented by: JAMESQC Sodium Chloride (0.9 % Sodium Chloride Flush 3 Ml Syringe) 3 ml IVFLUSH QSHIFT [facility] Last Admin: 10/29/21 08:30 Dose: 3 ml Documented by: YUSUF Tamsulosin HCl (Tamsulosin Hcl 0.4 Mg Capsule) 0.4 mg PO DAILY [facility] Last Admin: 10/29/21 08:29 Dose: 0.4 mg Documented by: YUSUF Tiotropium [place] (Tiotropium [place] 18 Mcg Cap.W.Dev) 1 puff INHALE RDAILY [facility] Last Admin: 10/29/21 07:59 Dose: 1 puff Documented by: VITO Trazodone HCl (Trazodone Hcl 100 Mg Tablet) 100 mg PO BEDTIME PRN PRN Reason: Insomnia Last Admin: 10/28/21 19:36 Dose: 100 mg Documented by: FAVIAN Labs CBC & Chem 7: 10/28/21 07:11 10/28/21 06:59 Microbiology Microbiology Results: Microbiology 10/28/21 07:18 Blood Culture - Preliminary Blood - Venous No growth after 24 hours. 10/28/21 07:07 Blood Culture - Final Blood - Venous Assessment and Plan (1) Leukocytosis: Status: Acute (2) Hypoxia: Status: Acute (3) Acute respiratory failure with hypoxia: Status: Acute (4) COPD exacerbation: Status: Acute Plan 65yo M with COPD, tobacco abuse, paranoid schizophrenia presenting with dyspnea and hypoxia concerning for COPD exacerbation # acute COPD exacerbation - persistent shortness of breath and chest congestion, continue methlyprednisolone IV day 2, transition to by mouth prednisone at a.m., continue standing/prn bronchodilators No antibiotics due to low procalcitonin level and normal chest x-ray, will add cough expectorant. # acute hypoxic respiratory failure - due to COPD exacerbation,no evidence of CO2 retention, oxygenation improved # schizophrenia - continue home meds ,, no acute decompensation # tobacco use disorder continue nicotine patch counseling done # VTE ppx - LMWH, SCDs # code - full code Continue current treatment with IV steroids and updraft due to persistent shortness of breath and diminished breath sound. Quality Stroke Does the patient have a stroke diagnosis?: No VTE Prior VTE?: No VTE Risk Level:: Medical - moderate - high VTE Device Contraindication: N/A - Device Ordered VTE Drug Contraindication: N/A - Med Ordered
[2021-10-29] MEDS: guaiFENesin LA 600 MG TAB.ER.12H PO ×2 (11:43→20:13)
--- NOTE | 2021-10-29 14:56 | MHC.CLN ---
RE: CONSULT PT REPORTS A FEW WEEKS AGO HE WEIGHED 165# AND HIS HT 5'9 HOWEVER PREVIOUS WT HX REVEALS 120# (03/18/21) 8% NONSIGNIFICANT WT LOSS X 6 MONTHS UNABLE TO PERFORM NFPE ON PT R/T UNCOOPERATIVE AND PT PERSEVERATING ON DISCUSSING HIS BM DURING INTERVIEW. PT INSISTING ON LACTOSE FREE DIET HE C/O CONSTIPATION DIET RX: REGULAR-APPROPRIATE WILL ADD LACTOSE FREE PT NOT RECEPTIVE TO SUPPLEMENTS AT THIS TIME WHEN OFFERED SKIN INTACT MONITOR PO INTAKE CLOSELY SEE FULL CLINICAL NUTRITION ASSESSMENT
--- NOTE | 2021-10-29 15:45 | MHC.CM.PN ---
CASE MANAGEMENT -- WENT TO SEE PATIENT X2 SLEEPING , THIRD TIME I WENT TO SEE HIM AT FIRST HE WOULD NOT VERBALIZE , THEN VERY ABRUPT WOULD ONLY TELL ME HE HAS SERVICES BUT DID NOT KNOW WHO AND WOULD NOT FURTHER DISCUSS WITH ME . I ASKED IF I COULD REACH OUT TO FAMILY AND HE DECLINED ##THEY WOULD NOT KNOE ANYTHING ,) SPOEK WITH THE BEDSIDE NURSE , HE HAS MBEEN LIKE THIS MUCH OF THE DAY , VERY UNCOPERATIVE CASE MANAGEMENT ASSESSMENT NOT DONE
[2021-10-29] MEDS: Docusate Sodium 100 MG CAPSULE PO (17:27)
[2021-10-29] MEDS: OLANZapine 10 MG TABLET PO (20:13)
[2021-10-30 08:00] VITALS: BP 119/57; PULSE 92; RESP 18; TEMP 36.5; O2SAT 93
[2021-10-30] MEDS: busPIRone HCl 5 MG TABLET 7.5 MG PO (09:38)
[2021-10-30] MEDS: Nicotine 21 MG PATCH.TD24 TRANSDERMA (09:38)
[2021-10-30] MEDS: 0.9 % Sodium Chloride Flush 3 ML SYRINGE IVFLUSH (09:38)
[2021-10-30] MEDS: Tamsulosin HCL 0.4 MG CAPSULE PO (09:38)
[2021-10-30] MEDS: methylPREDNISolone Sod Succ 40 MG/ML VIAL IVPUSH (09:38)
[2021-10-30] MEDS: Folic Acid 1 MG TABLET PO (09:39)
[2021-10-30] MEDS: Gabapentin 100 MG CAPSULE PO (09:39)
[2021-10-30] MEDS: guaiFENesin LA 600 MG TAB.ER.12H PO (09:39)
[2021-10-30] MEDS: Acamprosate Calcium 333 MG TABLET.DR PO (09:39)
--- NOTE | 2021-10-30 09:51 | PC.NURSE ---
Pt refused lovenox this morning, took other morning medications, telling RN to Hurry up and get out . 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 Dr Dietrich aware of pt. Will continue to monitor.
--- NOTE | 2021-10-30 13:01 | P.DS_ITS ---
DS: Providers Provider Date of Service: 10/30/21 Date of admission: 10/28/21 09:56 Primary care physician: Unknown Physician DS: Diagnosis Discharge Diagnosis (1) Leukocytosis: Status: Acute (2) Hypoxia: Status: Acute (3) Acute respiratory failure with hypoxia: Status: Acute (4) COPD exacerbation: Status: Acute DS: Summary Hospital Course Hospital Course: History of present illness Chief Complaint: dyspnea Patient is a poor historian; despite my repeated efforts to engage him, he asks that I leave him alone.? Therefore, this history is per the ED physician Dr Sharifa Benedict and review of the EHR. 65yo M with paranoid schizophrenia and COPD, not on home O2, Covid-19 diagnosed 09/22/21 though he insists that he tested positive a few days ago .? EMS was called due to worsening dyspnea and non-productive cough overnight.? EMS was called and found him in respiratory distress with SaO2 of 88%.? He arrived tachypneic and on 6L O2 via NC.? He was placed on Medrano nasal cannula.? He was given 5 mg nebulized albuterol and 6 mg of IV dexamethasone, along with ceftriaxone and doxycycline.? CXR without infiltrate.? Noted to have marked leukocytosis with WBCs 28.2 and 17% bands.? Procalcitonin low at 0.03 and Covid- 19 SLOAN negative.? Currently comfortable appearing but refusing to speak with me. Hospital course 65yo M with COPD, tobacco abuse, paranoid schizophrenia presented with dyspnea and hypoxia treated aggressively in the emergency room due to hypoxia with respiratory distress and subsequently admitted to medical floor for continued monitoring and treatment for acute COPD exacerbation with acute hypoxic respiratory failure likely exacerbated due to continued tobacco use, patient treated with IV methylprednisolone, scheduled and as needed bronchodilators, patient did not require antibiotic treatment due to low procalcitonin and normal chest x-ray patient responded well to above treatment currently seems to be doin g better oxygenation is stable at room air, therefore being discharged home on by mouth steroids cough medication, and inhalers, patient has been strongly advise to abstain from smoking and is being discharged on nicotine patch 21 mg by mouth daily patient has been given refills on his home medications including albuterol, Symbicort and Spiriva. In regard to schizophrenia patient continued on home medication no acute decompensation noted. For the other chronic medical issues including urinary retention he has been recommended to follow-up with urology and continue Flomax. Time Spent with Patient Time attestation: Total time spent providing and/or coordinating discharge services: Discharge coordination time: Greater than 30 minutes Quality: Stroke Does the patient have a stroke diagnosis?: No Physical Exam Vital Signs: Vital Signs: Last Vital Signs Temp 97.7 F 10/30/21 08:00 Pulse 92 10/30/21 08:00 Resp 18 10/30/21 08:00 BP 119/57 L 10/30/21 08:00 Pulse Ox 93 10/30/21 08:00 Oxygen Flow Rate 6 10/28/21 06:48 BMI result Body Mass Index 20.1 Const: Other: Gen:? Awake alert, in no acute distress Neck: supple no JVD Lungs: Clear to auscultation,no expiratory wheeze Heart: regular rate and rhythm, no murmurs Abd: soft, non-tender, non-distended Ext: no edema Skin: warm/well-perfused Neuro:? Nonfocal Psych:? Appropriate affect DS: Data Data Completed and Pending Labs on day of discharge: Preliminary micro results at discharge 10/28/21 07:18 Blood Culture - Preliminary Blood - Venous No growth after 48 hours. Discharge Plan Discharge Patient Disposition: Home, Self-Care Discharge Diagnosis: Acute hypoxic respiratory failure Acute COPD exacerbation Tobacco use disorder Referrals: Physician,Unknown J [Primary Care Provider] - 1 Week Discharge Medications: New guaifenesin [Mucinex] 600 mg Tablet Extended Release 12hr 600 mg PO BID Qty: 14 0RF nicotine 21 mg/24 hr Patch 24 Hour 21 mg transdermal DAILY Qty: 28 0RF prednisone 10 mg tablet 10 mg PO DAILY Qty: 5 0RF Continued albuterol sulfate 90 mcg/actuation HFA aerosol inhaler 1 inh inhalation QID PRN (Reason: shortness of breath or wheezing) Qty: 18 0RF hydroxyzine HCl 10 mg tablet 10 mg PO DAILY PRN (Reason: Anxiety) 0RF psyllium Powder 1 tsp PO DAILY 0RF buspirone 7.5 mg Tablet 7.5 mg PO BID 0RF docusate sodium 100 mg Tablet 100 mg PO DAILY PRN (Reason: Constipation) 0RF acamprosate 333 mg Tablet,Delayed Release (Dr/Ec) 333 mg PO TID 0RF olanzapine 10 mg Tablet 10 mg PO BEDTIME 0RF trazodone 100 mg Tablet 100 mg PO BEDTIME PRN (Reason: Insomnia) 0RF baclofen 10 mg tablet 1 tab PO QID PRN (Reason: muscle rigidity) 0RF fluticasone propion-salmeterol [Wixela Inhub] 500-50 mcg/dose blister with device 1 puff inhalation BID 0RF albuterol sulfate 90 mcg/actuation HFA aerosol inhaler 1 inh inhalation QID PRN (Reason: shortness of breath or wheezing) Qty: 18 0RF tiotropium bromide 2.5 mcg/actuation mist 2 puff inhalation DAILY Qty: 4 0RF Spiriva Respimat 2.5 mcg/actuation mist 2 puff inhalation DAILY 0RF gabapentin 100 mg capsule 100 mg PO BID 0RF folic acid 1 mg tablet 1 mg PO DAILY 0RF tamsulosin 0.4 mg capsule 0.4 mg PO DAILY 0RF Changed fluticasone propion-salmeterol [Wixela Inhub] 500-50 mcg/dose blister with device 1 ea inhalation BID Qty: 60 0RF Discontinued guaifenesin 600 mg Tablet Extended Release 600 mg PO BID 0RF benzonatate 100 mg capsule 100 mg PO TID PRN (Reason: Cough) 0RF Discharge Orders: Discharge Order (Routine); Ordered 10/30/21 Ordered By: Caroline Dietrich Diet: advance to usual diet Activity on Discharge: As tolerated Stand Alone Forms: Patient Portal Discharge page Care Plan Goals: Acute hypoxic respiratory failure with COPD exacerbation resolved, continue home inhalers, short course of prednisone 10 mg daily for 5 days and cough medication as needed Script for albuterol, Spiriva and fluticasone/salmeterol given. Strongly advised to abstain from smoking use nicotine patch 21 mg daily Health Concerns: Continue all home medications for mood disorder, follow-up with urology for history of urine retention Plan of Treatment: Outpatient follow-up with primary care physician in 7-10 days Assessment: As per discharge summary
--- NOTE | 2021-10-30 14:15 | MHC.CM.PN ---
MULTIPLE CALLS TO [facility] [phone] WITH MULTIPLE DISCONNECTS WHEN TRYING TO SPEAK WITH A PHARMACY STAFF MEMBER. THIS LOAN COORDINATOR ATTEMPTING TO SECURE INFORMATION ABOUT PATIENT'S MEDICATION COST (PER REQUEST OF PATIENT). 6 ATTEMPTS MADE WITH SAME RESULTS. PATIENT AWARE.
--- NOTE | 2021-10-30 14:38 | MHC.CM.PN ---
Addendum entered by Elana Menendez 10/30/21 14:47: PATIENT STATES APRYL DAVENPORT OF [facility] IS HIS PROVIDER CM OFFICE UPDATED IN QUICK TASK Original Note: PATIENT'S ROOMMATE TO PROVIDE TRANSPORT HOME AND WILL BE IN FRONT OF [facility] AT 1500. PLAN IS TO STOP AT [facility] ON [address] AND SORT OF COST OF RX. PATIENT IN AGREEMENT WITH PLAN
== END 2021-10-30 15:06 | disposition home or self-care (01) | DRG 190 ==
LOC: HO.ED 08:49 → HO.EDOVER 10:19 → HO.S3 14:02
PROVIDERS: Admitting Provider Family Medicine; Emergency Provider Emergency Medicine; PCP Physician Assistant Medical; Visit Provider Hospitalist
DX: J44.1 Chronic obstructive pulmonary disease with (acute) exacerbation (principal); J96.01 Acute respiratory failure with hypoxia; F20.0 Paranoid schizophrenia; D72.829 Elevated white blood cell count, unspecified; Z20.822 Contact with and (suspected) exposure to COVID-19; F17.210 Nicotine dependence, cigarettes, uncomplicated; Z71.6 Tobacco abuse counseling; Z79.51 Long term (current) use of inhaled steroids; Z79.899 Other long term (current) drug therapy
CPT/HCPCS: 36415; 71045; 80048; 80076; 82077; 82728; 82803; 83605; 83690; 83735; 84145; 84484; 85007; 85027; 85379; 85610; 86140; 87040; 87635; 93005; 94640; 96365; 96366; 96374; 96375; 99285; 99291; J0696; J1100; J1650; J2405; J2920; J3475

== ENCOUNTER 2021-11-30 23:24 | Emergency (ER) | payer MEDICARE, BC, SELFPAY ==
[2021-11-30 23:39] VITALS: BP 133/49; PULSE 98; O2SAT 97; BMI 26.6
[2021-11-30 23:44] VITALS: BP 158/71; PULSE 92; RESP 16; TEMP 37.1; O2SAT 97
--- NOTE | 2021-11-30 23:48 | ED.ABDPAIN ---
HPI - Abdominal Pain General Chief Complaint: Abdominal Pain Stated Complaint: constipated 3hours Time Seen by Provider: 11/30/21 23:47 Source: patient Mode of arrival: ambulatory Limitations: no limitations History of Present Illness HPI narrative: Patient history of chronic constipation using stool softeners at home without much relief had small bowel movement 3 days ago comes here for feeling of constipation unable to move his bowels history of same in the past no significant abdominal pain or nausea no vomiting Related Data Home Medications Medication Instructions Recorded Confirmed folic acid 1 mg tablet 1 mg PO DAILY 03/03/21 10/28/21 gabapentin 100 mg capsule 100 mg PO BID 03/03/21 10/28/21 tamsulosin 0.4 mg capsule 0.4 mg PO DAILY 03/03/21 10/28/21 acamprosate 333 mg tablet,delayed 333 mg PO TID 03/18/21 10/28/21 release buspirone 7.5 mg tablet 7.5 mg PO BID 03/18/21 10/28/21 docusate sodium 100 mg tablet 100 mg PO DAILY PRN 03/18/21 10/28/21 hydroxyzine HCl 10 mg tablet 10 mg PO DAILY PRN 03/18/21 10/28/21 olanzapine 10 mg tablet 10 mg PO BEDTIME 03/18/21 10/28/21 psyllium 1 tsp PO DAILY 03/18/21 10/28/21 baclofen 10 mg tablet 1 tab PO QID PRN 10/28/21 10/28/21 trazodone 100 mg tablet 100 mg PO BEDTIME PRN 10/28/21 10/28/21 Previous Rx's Medication Instructions Recorded albuterol sulfate 90 mcg/actuation 1 inh INHALATION QID PRN #18 g 10/30/21 aerosol inhaler fluticasone 500 mcg-salmeterol 50 1 ea INHALATION BID #60 ea 10/30/21 mcg/dose blistr powdr for inhalation (Sascha Reyes) guaifenesin 600 mg tablet, 600 mg PO BID #14 tab 10/30/21 extended release 12 hr (Mucinex) nicotine 21 mg/24 hr daily 21 mg TRANSDERMAL DAILY #28 ea 10/30/21 transdermal patch prednisone 10 mg tablet 10 mg PO DAILY #5 tab 10/30/21 tiotropium bromide 2.5 2 puff INHALATION DAILY #4 g 10/30/21 mcg/actuation mist for inhalation Allergies Allergy/AdvReac Type Severity Reaction Status Date / Time tree and shrub pollen Allergy Mild Rash Verified 10/28/21 06:48 Review of Systems Review of Systems Yes all other systems are reviewed and are negative [facility] Past Medical History Medical History COPD (chronic obstructive pulmonary disease) COPD (chronic obstructive pulmonary disease) Pneumonia Pneumothorax Right inguinal hernia Schizophrenia Umbilical hernia Social History Social History Household Members: Other Household Members Other:: nancy Housing: Other Housing Other:: hotel Do you presently have visiting nurse or other home services: Yes (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) Alcohol intake: current Alcohol intake frequency: holidays/special occasions only Alcohol type: beer Patient Tobacco Use Status: Current everyday Tobacco user Tobacco use type: Cigarette Cigarette Packs Per Day: 1 Cigarettes Per Day: 20.0 Second Hand Smoke Exposure: No Advance Directives: Yes Advance Directives on File: Yes Advance Directives Date on File: 03/22/21 service: Yes Current occupational status: 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 Oriented X3. No acute distress. ENT: Pharynx normal. Oral Mucosa moist Neck: Normal inspection. Neck supple. CVS: Normal heart rate and rhythm. Pulses normal. Respiratory: No respiratory distress. Equal air entry bilateral, Abdomen: Soft and nontender. Bowel sounds are present, no mass palpable, no CVA tenderness rectal; hard stool in the rectum Skin: Skin warm and dry. Normal skin color. Normal skin turgor. Extremities: No lower extremity edema. Neuro: Oriented X 3. N MDM - Abdominal Pain MDM Narrative Medical decision making narrative: Manual disimpaction of the stool was done patient felt better and had a good bowel movement will discharge patient home Discharge Plan Discharge Clinical Impression: Constipation Patient Disposition: Home, Self-Care Instructions: Constipation (ED) Additional Instructions: Take stool softener//milk of magnesium Fleet enemas as advised Prescriptions: No Action hydroxyzine HCl 10 mg tablet 10 mg PO DAILY PRN (Reason: Anxiety) 0RF psyllium Powder 1 tsp PO DAILY 0RF buspirone 7.5 mg Tablet 7.5 mg PO BID 0RF docusate sodium 100 mg Tablet 100 mg PO DAILY PRN (Reason: Constipation) 0RF acamprosate 333 mg Tablet,Delayed Release (Dr/Ec) 333 mg PO TID 0RF olanzapine 10 mg Tablet 10 mg PO BEDTIME 0RF trazodone 100 mg Tablet 100 mg PO BEDTIME PRN (Reason: Insomnia) 0RF baclofen 10 mg tablet 1 tab PO QID PRN (Reason: muscle rigidity) 0RF guaifenesin [Mucinex] 600 mg Tablet Extended Release 12hr 600 mg PO BID Qty: 14 0RF nicotine 21 mg/24 hr Patch 24 Hour 21 mg transdermal DAILY Qty: 28 0RF prednisone 10 mg tablet 10 mg PO DAILY Qty: 5 0RF fluticasone propion-salmeterol [Wixela Inhub] 500-50 mcg/dose blister with device 1 ea inhalation BID Qty: 60 0RF albuterol sulfate 90 mcg/actuation HFA aerosol inhaler 1 inh inhalation QID PRN (Reason: shortness of breath or wheezing) Qty: 18 0RF tiotropium bromide 2.5 mcg/actuation mist 2 puff inhalation DAILY Qty: 4 0RF gabapentin 100 mg capsule 100 mg PO BID 0RF folic acid 1 mg tablet 1 mg PO DAILY 0RF tamsulosin 0.4 mg capsule 0.4 mg PO DAILY 0RF Interventions: ED Discharge Assessment Last Done: 12/01/21 00:13
[2021-12-01] MEDS: Milk of Magnesia 30 ML ORAL.SUSP PO (00:08)
--- NOTE | 2021-12-01 00:14 | PC.NURSE ---
I assisted Dr. Fox at the bedside after he manually disimpacted the pt. The pt was then able to have a large bowel movement in the bathroom across from bed 3. he ambulated to and from bathroom independently and with steady gait.
== END 2021-12-01 00:35 | disposition home or self-care (01) ==
LOC: HO.ED 12-01 00:10
PROVIDERS: Emergency Provider Internal Medicine
DX: K59.00 Constipation, unspecified (principal); F17.210 Nicotine dependence, cigarettes, uncomplicated; Z71.6 Tobacco abuse counseling; Z79.899 Other long term (current) drug therapy
CPT/HCPCS: 99283

== ENCOUNTER 2022-01-24 22:20 | Inpatient (IN) | payer MEDICARE, BC, SELFPAY ==
--- NOTE | ~2022-01-24 | XR_ITS ---
EXAMINATION: XR CHEST CLINICAL INFORMATION: Chest pain. COMPARISON: Chest radiograph dated from 10/28/2021. TECHNIQUE: Frontal view of the chest was obtained. FINDINGS: Stable appearance of the cardiomediastinal silhouette. Lungs are hyperexpanded with chronic interstitial coarsening and parenchymal distortion, not significantly changed. No new focal airspace opacities, pleural effusions or pneumothorax. Deformity of the left fifth rib is unchanged when compared to studies dating back from 2019. Nonspecific gaseous distention in the left upper quadrant. XR/XR chest 1V IMPRESSION: Chronic findings with no overt consolidative disease or effusion.
[2022-01-24 22:27] VITALS: BP 121/63; PULSE 90; O2SAT 98
--- NOTE | 2022-01-24 22:36 | ECG_ITS ---
Test Reason : DIFFICULTY BREATHING Blood Pressure : / mmHG Vent. Rate : 073 BPM Atrial Rate : 073 BPM P-R Int : 118 ms QRS Dur : 076 ms QT Int : 382 ms P-R-T Axes : 087 058 077 degrees QTc Int : 420 ms Normal sinus rhythm Anteroseptal infarct , age undetermined Abnormal ECG When compared with ECG of 28-OCT-2021 07:10, Premature supraventricular complexes are no longer Present Anteroseptal infarct is now Present Referred By: Trang Nevarez Electronically Signed By:CRYSTAL NARVAEZ MD
--- NOTE | 2022-01-24 22:40 | ED.SOB ---
HPI - SOB/Dyspnea General Chief Complaint: Dyspnea Stated Complaint: SOB Time Seen by Provider: 01/24/22 22:36 History of Present Illness HPI Narrative: Patient is a 66-year-old male with a history of COPD baseline not on oxygen presents today with having increasing coughing up respiratory symptoms shortness of breath ongoing for the last few days. Patient immunized for COVID. Denies having any fever. No leg swelling. No chest pain. No diaphoresis. No history of PR. Positive history of hypertension. Long history of smoking. Patient is from home. No recent travel. Related Data Home Medications Medication Instructions Recorded Confirmed folic acid 1 mg tablet 1 mg PO DAILY 03/03/21 10/28/21 gabapentin 100 mg capsule 100 mg PO BID 03/03/21 10/28/21 tamsulosin 0.4 mg capsule 0.4 mg PO DAILY 03/03/21 10/28/21 acamprosate 333 mg tablet,delayed 333 mg PO TID 03/18/21 10/28/21 release buspirone 7.5 mg tablet 7.5 mg PO BID 03/18/21 10/28/21 docusate sodium 100 mg tablet 100 mg PO DAILY PRN 03/18/21 10/28/21 hydroxyzine HCl 10 mg tablet 10 mg PO DAILY PRN 03/18/21 10/28/21 olanzapine 10 mg tablet 10 mg PO BEDTIME 03/18/21 10/28/21 psyllium 1 tsp PO DAILY 03/18/21 10/28/21 baclofen 10 mg tablet 1 tab PO QID PRN 10/28/21 10/28/21 trazodone 100 mg tablet 100 mg PO BEDTIME PRN 10/28/21 10/28/21 Previous Rx's Medication Instructions Recorded albuterol sulfate 90 mcg/actuation 1 inh INHALATION QID PRN #18 g 10/30/21 aerosol inhaler fluticasone 500 mcg-salmeterol 50 1 ea INHALATION BID #60 ea 10/30/21 mcg/dose blistr powdr for inhalation (Sascha Inhub) guaifenesin 600 mg tablet, 600 mg PO BID #14 tab 10/30/21 extended release 12 hr (Mucinex) nicotine 21 mg/24 hr daily 21 mg TRANSDERMAL DAILY #28 ea 10/30/21 transdermal patch prednisone 10 mg tablet 10 mg PO DAILY #5 tab 10/30/21 tiotropium bromide 2.5 2 puff INHALATION DAILY #4 g 10/30/21 mcg/actuation mist for inhalation Allergies Allergy/AdvReac Type Severity Reaction Status Date / Time tree and shrub pollen Allergy Mild Rash Verified 10/28/21 06:48 Review of Systems Review of Systems: Positive coughing shortness, upper respiratory symptoms. No diaphoresis. Yes all other systems are reviewed and are negative [facility] Past Medical History Attestation statement: The following information was validated with the patient. Medical History COPD (chronic obstructive pulmonary disease) COPD (chronic obstructive pulmonary disease) Pneumonia Pneumothorax Right inguinal hernia Schizophrenia Umbilical hernia Social History Social History Household Members: Other Household Members Other:: nancy Housing: Other Housing Other:: hotel Do you presently have visiting nurse or other home services: Yes (vna and psychiatric arnp) Alcohol intake: current Alcohol intake frequency: holidays/special occasions only Alcohol type: beer Patient Tobacco Use Status: Current everyday Tobacco user Tobacco use type: Cigarette Cigarette Packs Per Day: 1 Cigarettes Per Day: 20.0 Second Hand Smoke Exposure: No Advance Directives: Yes Advance Directives on File: Yes Advance Directives Date on File: 03/22/21 service: Yes 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 Oriented X3. No acute distress. Eyes: Pupils equal, round and reactive to light. ENT: Pharynx normal. Neck: Normal inspection. Neck supple. No lymph nodes noted. No crepitus CVS: Normal heart rate and rhythm. Pulses normal. Normal S1 and S2 Respiratory: Diminished breath sounds bilaterally Abdomen: Soft and nontender. No rigidity. No distention. good BS x4 Skin: Skin warm and dry. Normal skin color. Normal skin turgor. Extremities: No lower extremity edema. Neurovascular intact to all extremities. No Lacerations. No Rash Neuro: Oriented X 3. No motor deficit. No sensory deficit. Moving all extermities. No slurred speech MDM - SOB/Dyspnea MDM Narrative Medical decision making narrative: Patient given nebs here in the emergency department steroid given. Chest x-ray showed no focal infiltrate. Symptom improved slightly with the neb treatment. Patient when ambulated got extremely short of breath. Patient's COVID test was negative. RSV negative. Influenza negative. BNP negative for any acute evidence of congestive heart failure. Patient had a normal lactate. Shortness of breath better explained by the COPD. Antibiotic started any way. Patient to be admitted to the hospitalist team. Case discussed with hospitalist. Medical Records Attestation: I reviewed the patient's medical records. Lab Data Attestation: I reviewed the patient's lab results. Result diagrams: 01/24/22 23:05 01/24/22 23:05 Labs: Lab Results 01/24/22 01/24/22 01/24/22 Range/Units 23:05 23:05 23:05 WBC 10.8 (4.8-10.8) X10*3/uL RBC 4.21 L (4.60-5.80) X10*6/uL Hgb 13.3 L (14.0-18.0) g/dl Hct 39.2 L (42.0-52.0) % MCV 93.1 (80.0-98.0) fL MCH 31.6 (27.0-33.0) pg MCHC 33.9 (31.0-36.0) g/dl RDW 13.5 (11.0-16.0) % Plt Count 308 (160-400) X10*3/uL MPV 8.9 L (9.4-12.4) fL Immature Gran % (Auto) 0.4 (0.0-0.4) % Neut % (Auto) 57.5 (45-73) % Lymph % (Auto) 25.4 (20-40) % [place] % (Auto) 9.0 (2-11) % Eos % (Auto) 7.1 H (0-4) % Baso % (Auto) 0.6 (0-2) % Lymph # (Auto) 2.8 (1.2-4.9) X10*3/uL [place] # (Auto) 1.0 (0.1-1.2) X10*3/uL Eos # (Auto) 0.8 H (0.0-0.4) X10*3/uL Baso # (Auto) 0.1 (0.0-0.2) X10*3/uL Abs Immat Gran (auto) 0.04 H (0.00-0.03) X10*3/uL Absolute Neuts (auto) 6.2 (2.0-8.3) x10*3/uL Absolute Nucleated RBC 0.000 (0.0-0.012) X10*3/uL Nucleated RBC % (auto) 0.0 (0.0-0.2) /100WBC Sodium 138 (135-145) mmol/L Potassium 4.3 (3.3-5.1) mmol/L Chloride 105 (96-108) mmol/L Carbon Dioxide 26 (22-29) mmol/L Anion Gap 11 L (12-20) BUN 6 L (9-16) mg/dL Creatinine 0.65 (0.5-1.4) mg/dL Estim Creat Clear Calc 82.3 Estimated GFR > 60 Random Glucose 100 (60-115) mg/dL Lactic Acid (0.5-2.0) mmol/L Calcium 9.2 (8.4-10.2) mg/dL Troponin I High Sens 17.6 D (<3.5-35.0) ng/L B-Natriuretic Peptide 42 (<100) pg/mL Influenza Type A (PCR) (Negative) Influenza Type B (PCR) (Negative) RSV RNA Qual (PCR) (Negative) SARS-CoV-2 RNA (RT-PCR) (Negative) 01/24/22 01/24/22 Range/Units 23:05 23:05 WBC (4.8-10.8) X10*3/uL RBC (4.60-5.80) X10*6/uL Hgb (14.0-18.0) g/dl Hct (42.0-52.0) % MCV (80.0-98.0) fL MCH (27.0-33.0) pg MCHC (31.0-36.0) g/dl RDW (11.0-16.0) % Plt Count (160-400) X10*3/uL MPV (9.4-12.4) fL Immature Gran % (Auto) (0.0-0.4) % Neut % (Auto) (45-73) % Lymph % (Auto) (20-40) % [place] % (Auto) (2-11) % Eos % (Auto) (0-4) % Baso % (Auto) (0-2) % Lymph # (Auto) (1.2-4.9) X10*3/uL [place] # (Auto) (0.1-1.2) X10*3/uL Eos # (Auto) (0.0-0.4) X10*3/uL Baso # (Auto) (0.0-0.2) X10*3/uL Abs Immat Gran (auto) (0.00-0.03) X10*3/uL Absolute Neuts (auto) (2.0-8.3) x10*3/uL Absolute Nucleated RBC (0.0-0.012) X10*3/uL Nucleated RBC % (auto) (0.0-0.2) /100WBC Sodium (135-145) mmol/L Potassium (3.3-5.1) mmol/L Chloride (96-108) mmol/L Carbon Dioxide (22-29) mmol/L Anion Gap (12-20) BUN (9-16) mg/dL Creatinine (0.5-1.4) mg/dL Estim Creat Clear Calc Estimated GFR Random Glucose (60-115) mg/dL Lactic Acid 0.9 (0.5-2.0) mmol/L Calcium (8.4-10.2) mg/dL Troponin I High Sens (<3.5-35.0) ng/L B-Natriuretic Peptide (<100) pg/mL Influenza Type A (PCR) NEGATIVE (Negative) Influenza Type B (PCR) NEGATIVE (Negative) RSV RNA Qual (PCR) NEGATIVE (Negative) SARS-CoV-2 RNA (RT-PCR) NEGATIVE (Negative) Critical Care Time Critical Care Time Critical Care Time: Yes Total Critical Care Time: 40 Attestation: I have personally provided 40 minutes of critical care time exclusive of time spent on separately billable procedures. Time includes review of lab data, radiology results, discussion with consultants, and monitoring for potential decompensation. Interventions were performed as documented above Discharge Plan Discharge Clinical Impression: COPD (chronic obstructive pulmonary disease) Patient Disposition: Admitted As Inpatient Prescriptions: No Action hydroxyzine HCl 10 mg tablet 10 mg PO DAILY PRN (Reason: Anxiety) 0RF psyllium Powder 1 tsp PO DAILY 0RF buspirone 7.5 mg Tablet 7.5 mg PO BID 0RF docusate sodium 100 mg Tablet 100 mg PO DAILY PRN (Reason: Constipation) 0RF acamprosate 333 mg Tablet,Delayed Release (Dr/Ec) 333 mg PO TID 0RF olanzapine 10 mg Tablet 10 mg PO BEDTIME 0RF trazodone 100 mg Tablet 100 mg PO BEDTIME PRN (Reason: Insomnia) 0RF baclofen 10 mg tablet 1 tab PO QID PRN (Reason: muscle rigidity) 0RF guaifenesin [Mucinex] 600 mg Tablet Extended Release 12hr 600 mg PO BID Qty: 14 0RF nicotine 21 mg/24 hr Patch 24 Hour 21 mg transdermal DAILY Qty: 28 0RF prednisone 10 mg tablet 10 mg PO DAILY Qty: 5 0RF fluticasone propion-salmeterol [Wixela Inhub] 500-50 mcg/dose blister with device 1 ea inhalation BID Qty: 60 0RF albuterol sulfate 90 mcg/actuation HFA aerosol inhaler 1 inh inhalation QID PRN (Reason: shortness of breath or wheezing) Qty: 18 0RF tiotropium bromide 2.5 mcg/actuation mist 2 puff inhalation DAILY Qty: 4 0RF gabapentin 100 mg capsule 100 mg PO BID 0RF folic acid 1 mg tablet 1 mg PO DAILY 0RF tamsulosin 0.4 mg capsule 0.4 mg PO DAILY 0RF
[2022-01-24 22:43] VITALS: BP 152/59; PULSE 77; RESP 18; TEMP 37.1; O2SAT 98; BMI 16.9
[2022-01-24] MEDS: methylPREDNISolone Sod Succ 125 MG/2 ML VIAL IVPUSH (23:08)
[2022-01-24] MEDS: cefTRIAXone sodium 1 GM in 0.9 % Sodium Chloride 50 ML IV (23:10)
[2022-01-24 23:12] LABS: MANUAL DIFF FLAG NO
[2022-01-24 23:14] LABS: Basophils Absolute Auto 0.1 X10*3/uL (0.0-0.2); Basophils Percent Auto 0.6 % (0-2); Eosinophils Absolute Auto 0.8 X10*3/uL (0.0-0.4); Eosinophils Percent Auto 7.1 % (0-4); Hematocrit 39.2 % (42.0-52.0); Hemoglobin 13.3 g/dl (14.0-18.0); Imm Gran Abs Auto 0.04 X10*3/uL (0.00-0.03); Imm Gran Pct Auto 0.4 % (0.0-0.4); Lymphocytes Absolute Auto 2.8 X10*3/uL (1.2-4.9); Lymphocytes Percent Auto 25.4 % (20-40); Mean Corpuscular HGB Conc 33.9 g/dl (31.0-36.0); Mean Corpuscular Hemoglobin 31.6 pg (27.0-33.0); Mean Corpuscular Volume 93.1 fL (80.0-98.0); Mean Platelet Volume 8.9 fL (9.4-12.4); Neutrophils Absolute Auto 6.2 x10*3/uL (2.0-8.3); Neutrophils Percent Auto 57.5 % (45-73); Platelet Count 308 X10*3/uL (160-400); Red Blood Count 4.21 X10*6/uL (4.60-5.80); Red Cell Distribution Width 13.5 % (11.0-16.0); White Blood Count 10.8 X10*3/uL (4.8-10.8)
[2022-01-24 23:21] LABS: Lactic Acid 0.9 mmol/L (0.5-2.0)
[2022-01-24 23:32] LABS: Anion Gap 11 (12-20); Blood Urea Nitrogen 6 mg/dL (9-16); Calcium 9.2 mg/dL (8.4-10.2); Carbon Dioxide 26 mmol/L (22-29); Chloride 105 mmol/L (96-108); Creatinine Clr Calc Pharmacy 82.3; Estimated Glomerular Filt Rate > 60; Glucose Random 100 mg/dL (60-115); Potassium 4.3 mmol/L (3.3-5.1); Sodium 138 mmol/L (135-145)
[2022-01-24 23:39] VITALS: PULSE 88; RESP 18; O2SAT 98
[2022-01-24 23:39] LABS: B Type Natriuretic Peptide 42 pg/mL (<100); Troponin-I High Sensitivity 17.6 ng/L (<3.5-35.0)
[2022-01-24] MEDS: Albuterol Sulfate (0.083%) 2.5 MG/3 ML VIAL.NEB 7.5 MG INHALE (23:39)
[2022-01-24 23:51] LABS: Influenza A PCR NEGATIVE (Negative); Influenza B PCR NEGATIVE (Negative); Resp Syncy Virus RNA Qual PCR NEGATIVE (Negative); SARS COV2 PCR INHOUSE NEGATIVE (Negative)
[2022-01-25] VITALS (8 sets, daily range): BP systolic 126–134; BP diastolic 58–62; PULSE 74–86; RESP 16–24; TEMP 36.3–36.8; O2SAT 97–100
[2022-01-25] MEDS: Magnesium Sulfate/H2O 2 GM/50 ML PIGGYBACK IV (01:04)
--- NOTE | 2022-01-25 01:43 | PM.IMHP ---
History of Present Illness Date of Service: 01/25/22 Chief Complaint: SOB This is a 66-year-old male with past medical history of COPD, pneumothorax, and schizophrenia presents to the hospital with complaints of shortness of breath. Patient reports cough as well as sputum production for the past 2 days. Patient denies any fever no chills. No chest pain, no abdominal pain nausea or vomiting, no diarrhea constipation, no urinary symptoms and no lower extremity edema. Per nurse report pt drops to O2 of 87% on minimal activity. On arrival to the ED patient hemodynamically stable with no significant abnormal vitals Labs are significant for WBC count 10.8, otherwise unremarkable. Chest x-ray negative for any pneumonia, COVID-19 RSV, influenza negative. Patient will be admitted for management of COPD exacerbation Review of Systems Review of Systems: Yes all other systems are reviewed and are negative [facility] Medical History (Updated 01/25/22 @ 06:46 by Adolph Flores MD) COPD (chronic obstructive pulmonary disease) COPD (chronic obstructive pulmonary disease) Pneumonia Pneumothorax Right inguinal hernia Schizophrenia Umbilical hernia Family History (Updated 01/25/22 @ 06:44 by Adolph Flores MD) Other No family history of coronary artery disease Surgical History (Updated 01/25/22 @ 06:46 by Adolph Flores MD) No pertinent past surgical history Social History Household Members: Other Household Members Other:: nancy Housing: Other Housing Other:: hotel Do you presently have visiting nurse or other home services: Yes (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) Alcohol intake: current Alcohol intake frequency: holidays/special occasions only Alcohol type: beer Patient Tobacco Use Status: Current everyday Tobacco user Tobacco use type: Cigarette Cigarette Packs Per Day: 1 Cigarettes Per Day: 20.0 Second Hand Smoke Exposure: No Advance Directives: Yes Advance Directives on File: Yes Advance Directives Date on File: 03/22/21 service: Yes Current occupational status: 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 Meds Allergies Allergy/AdvReac Type Severity Reaction Status Date / Time tree and shrub pollen Allergy Mild Rash Verified 10/28/21 06:48 Physical Exam Vital Signs and Narrative: Vital Signs: Last Vital Signs Temp 98.8 F 01/24/22 22:43 Pulse 75 01/25/22 00:28 Resp 18 01/25/22 00:28 BP 152/59 H 01/24/22 22:43 Pulse Ox 99 01/25/22 00:28 BMI result Body Mass Index 16.9 Const: General: cooperative and no acute distress Orientation/consciousness: patient oriented x3 Eyes: General: appearance normal, both eyes and all related structures Resp: Other: sig wheezing bilaterally Effort & Inspection: normal respiratory effort Cardio: Rate: regular rate Rhythm: regular rhythm GI: Palpation (GI): Soft to palpation Auscultation: normal bowel sounds Skin: General skin exam: no rashes or lesions noted Neuro: General: patient oriented x3 Cognition (Neuro): normal cognition Extrem: General: Yes normal to inspection and Yes no pedal edema Results Labs CBC and Chem 7: 01/24/22 23:05 01/24/22 23:05 Labs: Laboratory Results - last 24 hr 01/24/22 01/24/22 01/24/22 23:05 23:05 23:05 MCV 93.1 MCH 31.6 MCHC 33.9 RDW 13.5 Plt Count 308 MPV 8.9 L Immature Gran % (Auto) 0.4 Neut % (Auto) 57.5 Lymph % (Auto) 25.4 [place] % (Auto) 9.0 Eos % (Auto) 7.1 H Baso % (Auto) 0.6 Lymph # (Auto) 2.8 [place] # (Auto) 1.0 Eos # (Auto) 0.8 H Baso # (Auto) 0.1 Abs Immat Gran (auto) 0.04 H Absolute Neuts (auto) 6.2 Absolute Nucleated RBC 0.000 Nucleated RBC % (auto) 0.0 Anion Gap 11 L Estim Creat Clear Calc 82.3 Estimated GFR > 60 Random Glucose 100 Lactic Acid Calcium 9.2 Troponin I High Sens 17.6 D B-Natriuretic Peptide 42 Influenza Type A (PCR) Influenza Type B (PCR) RSV RNA Qual (PCR) SARS-CoV-2 RNA (RT-PCR) 01/24/22 01/24/22 23:05 23:05 MCV MCH MCHC RDW Plt Count MPV Immature Gran % (Auto) Neut % (Auto) Lymph % (Auto) [place] % (Auto) Eos % (Auto) Baso % (Auto) Lymph # (Auto) [place] # (Auto) Eos # (Auto) Baso # (Auto) Abs Immat Gran (auto) Absolute Neuts (auto) Absolute Nucleated RBC Nucleated RBC % (auto) Anion Gap Estim Creat Clear Calc Estimated GFR Random Glucose Lactic Acid 0.9 Calcium Troponin I High Sens B-Natriuretic Peptide Influenza Type A (PCR) NEGATIVE Influenza Type B (PCR) NEGATIVE RSV RNA Qual (PCR) NEGATIVE SARS-CoV-2 RNA (RT-PCR) NEGATIVE Imaging Radiologist's Impressions: Impressions Chest X-Ray 01/24/22 23:27 IMPRESSION: Chronic findings with no overt consolidative disease or effusion. Assessment and Plan (1) COPD exacerbation: Status: Acute Plan 66-year-old male with past medical history of COPD presents to the hospital with cough, shortness of breath as well as sputum production # acute COPD exacerbation - dyspnea , has increased sputum production and cough - no evidence of pneumonia on chest x-ray, BNP negative, COVID-19, influenza negative - will treat with Solu-Medrol, DuoNeb - monitor O2 Pending med review by Pharmacy, will resume his home medications once patient's medications have been reviewed DVT prophylaxis: Lovenox Quality Stroke Does the patient have a stroke diagnosis?: No VTE Prior VTE?: No VTE Risk Level:: Medical - moderate - high VTE Device Contraindication: Treatment Not Indicated VTE Drug Contraindication: N/A - Med Ordered
--- NOTE | 2022-01-25 05:20 | PC.NURSE ---
Pt was satting at 95% on RA when he asked to get up and use the bathroom. This RN then offered the pt a urinal to use at the bed side. Pt agreed to use urinal but while standing O2 sat decreased to 87% on RA. Pt was then placed on O2 at 2 L/min via NC to improve sat to 99%. O2 titrated down to 1 L/min with O2 sat steady at 96%. Pt continues to complain of SOB while sitting up in bed with supplemental O2.
--- NOTE | 2022-01-25 06:05 | PC.RT ---
pt refused ABG
[2022-01-25] MEDS: Albuterol/Iprat 2.5/0.5MG 3 ML AMPUL.NEB INHALE ×3 (07:32→19:46)
--- NOTE | 2022-01-25 07:32 | PC.NURSE ---
Increased work of breathing on initial contact with pt. LS diminished throughout. Resp at bedside for resp treatment at this time. sat 98% on 2lpm via nc
--- NOTE | 2022-01-25 07:50 | PC.NURSE ---
Pt non complaint with updraft treatment and needs frequent reminders to place mask on face
--- NOTE | 2022-01-25 08:02 | PHA.MEDREC ---
Pharmacy Consult ? Medication Reconciliation Pharmacy has completed the medication reconciliation. Recieve medication list from [place] [facility]. Jose LoveD
[2022-01-25] MEDS: 0.9 % Sodium Chloride Flush 3 ML SYRINGE IVFLUSH (08:41)
[2022-01-25] MEDS: methylPREDNISolone Sod Succ 40 MG/ML VIAL IVPUSH ×2 (08:41→21:22)
--- NOTE | 2022-01-25 09:04 | HO.PM.IMPN ---
Subjective Subjective Date of Service: 01/25/22 Interval History: copd excerabation Review of Systems sob seems improving worsen with minimal exertion, talks in broken sentences. Physical Exam Vital Signs: Vital Signs: Last Vital Signs Temp 98.8 F 01/24/22 22:43 Pulse 86 01/25/22 07:33 Resp 18 01/25/22 07:33 BP 126/58 L 01/25/22 02:16 Pulse Ox 100 01/25/22 02:16 BMI result Body Mass Index 16.9 Appearance: Alert.? Oriented X3.? Short of breath. cvs: rrr, [id number] , no murmur res: clear to auscultation ,no rhonchii or wheezing abd: no rebound or guarding ,nt, bs present. ext pulses present , no cyanosis . neuro: axo3 , nonfocal. Objective Data Active Medications Acetaminophen (Acetaminophen 325 Mg Tablet) 650 mg PO Q6H PRN PRN Reason: Pain, Mild (Pain Scale 1-3) Albuterol/Ipratropium (Albuterol/Iprat 2.5/0.5mg 3 Ml Ampul.Neb) 3 ml INHALE RQ4H PRN PRN Reason: Shortness of Breath/Wheezing Albuterol/Ipratropium (Albuterol/Iprat 2.5/0.5mg 3 Ml Ampul.Neb) 3 ml INHALE RQ4H WHILE AWAKE [facility] Last Admin: 01/25/22 07:32 Dose: 3 ml Documented by: VITO Docusate Sodium (Docusate Sodium 100 Mg Capsule) 100 mg PO DAILY PRN PRN Reason: Constipation Enoxaparin Sodium (Enoxaparin Sodium 40 Mg/0.4 Ml Syringe) 40 mg SUBCUT Q24H [facility] Last Admin: 01/25/22 08:42 Dose: Not Given Documented by: VALENCIA Non-Admin Reason: Patient Refused Methylprednisolone Sodium Succinate (Methylprednisolone Sod Succ 40 Mg/Ml Vial) 40 mg IVPUSH Q12H [facility] Last Admin: 01/25/22 08:41 Dose: 40 mg Documented by: VALENCIA Ondansetron HCl (Ondansetron Hcl 4 Mg/2 Ml Vial) 4 mg IVPUSH Q8H PRN PRN Reason: Nausea and Vomiting Pharmacy Consult (Consult Rx Perform Med Rec) 1 each MISCELLANE ONCE PRN PRN Reason: Consult order Sodium Chloride (0.9 % Sodium Chloride Flush 3 Ml Syringe) 3 ml IVFLUSH QSHIFT [facility] Last Admin: 01/25/22 08:41 Dose: 3 ml Documented by: VALENCIA Labs CBC & Chem 7: 01/24/22 23:05 01/24/22 23:05 Labs: Laboratory Results - last 24 hr 01/24/22 01/24/22 01/24/22 23:05 23:05 23:05 MCV 93.1 MCH 31.6 MCHC 33.9 RDW 13.5 Plt Count 308 MPV 8.9 L Immature Gran % (Auto) 0.4 Neut % (Auto) 57.5 Lymph % (Auto) 25.4 [place] % (Auto) 9.0 Eos % (Auto) 7.1 H Baso % (Auto) 0.6 Lymph # (Auto) 2.8 [place] # (Auto) 1.0 Eos # (Auto) 0.8 H Baso # (Auto) 0.1 Abs Immat Gran (auto) 0.04 H Absolute Neuts (auto) 6.2 Absolute Nucleated RBC 0.000 Nucleated RBC % (auto) 0.0 Anion Gap 11 L Estim Creat Clear Calc 82.3 Estimated GFR > 60 Random Glucose 100 Lactic Acid Calcium 9.2 Troponin I High Sens 17.6 D B-Natriuretic Peptide 42 Influenza Type A (PCR) Influenza Type B (PCR) RSV RNA Qual (PCR) SARS-CoV-2 RNA (RT-PCR) 01/24/22 01/24/22 23:05 23:05 MCV MCH MCHC RDW Plt Count MPV Immature Gran % (Auto) Neut % (Auto) Lymph % (Auto) [place] % (Auto) Eos % (Auto) Baso % (Auto) Lymph # (Auto) [place] # (Auto) Eos # (Auto) Baso # (Auto) Abs Immat Gran (auto) Absolute Neuts (auto) Absolute Nucleated RBC Nucleated RBC % (auto) Anion Gap Estim Creat Clear Calc Estimated GFR Random Glucose Lactic Acid 0.9 Calcium Troponin I High Sens B-Natriuretic Peptide Influenza Type A (PCR) NEGATIVE Influenza Type B (PCR) NEGATIVE RSV RNA Qual (PCR) NEGATIVE SARS-CoV-2 RNA (RT-PCR) NEGATIVE Assessment and Plan (1) COPD exacerbation: Status: Acute Plan 66-year-old male with past medical history of COPD presents to the hospital with cough, shortness of breath as well as sputum production acute hypoxic respiratory failure sec acute COPD exacerbation - dyspnea , has increased sputum production and cough - no evidence of pneumonia on chest x-ray, BNP negative, COVID-19, influenza negative - will treat with Solu-Medrol, DuoNeb still short of breath given our long treatment with albuterol- magnesium - monitor O2 # schizophrenia - continue home meds ,, no acute decompensation # tobacco use disorder continue nicotine patch counseling done # VTE ppx - LMWH, SCDs # code - full code DVT prophylaxis: Lovenox Need for inpatient: COPD exacerbation- require nebs, steroids IV Quality Stroke Does the patient have a stroke diagnosis?: No VTE Prior VTE?: No VTE Risk Level:: Medical - moderate - high VTE Device Contraindication: Treatment Not Indicated VTE Drug Contraindication: N/A - Med Ordered
--- NOTE | 2022-01-25 13:53 | PC.NURSE ---
patient a&o, secured entrance monitor intact nsr, pt complaining about O2 making nose dry- applied humidity and also lined nares with lubrication, pt also stating he drinks 12 cups of tea and is continuously demanding cups of tea, this nurse has made attempt to reason with him and gave a pitcher of hot water with tea, pt drank the tea and demanded more, this nurse has told the patient he will need to wait for dinner to have additional tea but if he would like water we could accommodate him. pt ambulating to the bathroom with steady gait, call mcgraw within reach, will continue to monitor.
--- NOTE | 2022-01-25 14:54 | MHC.CM.PN ---
Met with pt to discuss d/c planning: Pt is very anxious during assessment and fixated on his environment and beverages which somewhat limited the assessment. Pt resides at the [facility] on [address] while awaiting permanent senior housing. Pt states he is on a wait list. Also [facility] pt[facility]. Pt states his friend Nate Silva stays with him 3-4 days / week in addition to his [employer]NAGER on M, W, . He also has an RN who fills a med box weekly. Pt does not recall the name of the care agency, only the names of his RN/INSIGHTS MANAGER. He states he does not have DME. Pt relies on Nate or his INSIGHTS MANAGER for transportation but may need assistance if either person cannot transport. [place] completed HCP/MOLST on file and verified with pt. When asked about COVID Vax status, pt states he is up to date on everything CM to follow for changes in d/c planning needs
--- NOTE | 2022-01-25 16:28 | PC.NURSE ---
patient continues to be demanding, has called his roomate for a ride home, dr garvin has been notifed which agreed he can leave ama if he wishes. patient states he is going to go home when his ride gets here around 6pm.
[2022-01-25] MEDS: Albuterol Sulfate (0.083%) 2.5 MG/3 ML VIAL.NEB 7.5 MG INHALE (17:42)
[2022-01-25] MEDS: Magnesium Sulfate/D5W 1 GM/100 ML PIGGYBACK IV (17:58)
[2022-01-25] MEDS: hydrOXYzine HCL 10 MG TABLET PO (21:22)
[2022-01-25] MEDS: guaiFENesin LA 600 MG TAB.ER.12H PO (21:22)
[2022-01-25] MEDS: Gabapentin 100 MG CAPSULE PO (21:22)
[2022-01-25] MEDS: Acamprosate Calcium 333 MG TABLET.DR PO (21:22)
[2022-01-25] MEDS: busPIRone HCl 5 MG TABLET 7.5 MG PO (21:22)
[2022-01-25] MEDS: Megestrol Acetate 400 MG/10 ML ORAL.SUSP 200 MG PO (21:22)
[2022-01-25] MEDS: OLANZapine 10 MG TABLET PO (21:23)
[2022-01-25] MEDS: Oxymetazoline HCl 0.05 % Nasal 15 ML SPRAY 1 SPRAY NOSTRIL-B (21:23)
[2022-01-26] VITALS (8 sets, daily range): BP systolic 116–144; BP diastolic 57–79; PULSE 91–114; RESP 16–24; TEMP 36.4–36.8; O2SAT 96–100
--- NOTE | 2022-01-26 00:30 | PC.NURSE ---
Assumed care of pt Pt resting on hospital bed Pt tolerating O2 Pt given extra blankets per request NAD Will continue to monitor
--- NOTE | 2022-01-26 03:45 | PC.NURSE ---
Pt ambulatory to bathroom Gait even and steady Pt back on hospital bed. RT called for breathing tx per pt request Will continue to monitor
[2022-01-26] MEDS: Albuterol/Iprat 2.5/0.5MG 3 ML AMPUL.NEB INHALE ×4 (07:16→20:28)
[2022-01-26] MEDS: Gabapentin 100 MG CAPSULE PO ×2 (09:19→20:12)
[2022-01-26] MEDS: Folic Acid 1 MG TABLET PO (09:19)
[2022-01-26] MEDS: Acamprosate Calcium 333 MG TABLET.DR PO ×3 (09:19→19:57)
[2022-01-26] MEDS: 0.9 % Sodium Chloride Flush 3 ML SYRINGE IVFLUSH ×3 (09:19→20:13)
[2022-01-26] MEDS: busPIRone HCl 5 MG TABLET 7.5 MG PO ×2 (09:19→19:57)
[2022-01-26] MEDS: guaiFENesin LA 600 MG TAB.ER.12H PO ×2 (09:19→19:57)
[2022-01-26] MEDS: Tamsulosin HCL 0.4 MG CAPSULE PO (09:19)
[2022-01-26] MEDS: methylPREDNISolone Sod Succ 40 MG/ML VIAL IVPUSH ×2 (09:19→19:58)
[2022-01-26] MEDS: Megestrol Acetate 400 MG/10 ML ORAL.SUSP 200 MG PO ×2 (09:20→19:57)
[2022-01-26] MEDS: Oxymetazoline HCl 0.05 % Nasal 15 ML SPRAY 1 SPRAY NOSTRIL-B (09:21)
[2022-01-26] MEDS: Albuterol Sulfate (0.083%) 2.5 MG/3 ML VIAL.NEB 10 MG INHALE (13:13)
[2022-01-26] MEDS: Magnesium Sulfate/D5W 1 GM/100 ML PIGGYBACK IV (13:23)
--- NOTE | 2022-01-26 16:21 | HO.PM.IMPN ---
Subjective Subjective Date of Service: 01/26/22 Interval History: copd excerabation Review of Systems shortness of breath seems similar to yesterday trying to walk but could not walk even for couple of steps without short of breath. Has dry cough denies any fever or chills Physical Exam Vital Signs: Vital Signs: Last Vital Signs Temp 97.6 F 01/26/22 11:41 Pulse 109 H 01/26/22 15:14 Resp 22 H 01/26/22 15:14 BP 116/57 L 01/26/22 11:41 Pulse Ox 99 01/26/22 11:41 BMI result Body Mass Index 16.9 Appearance: Alert.? Oriented X3.? ? Short of breath. cvs: rrr, [id number] , no murmur res: clear to auscultation ,no rhonchii or wheezing abd: no rebound or guarding ,nt, bs present. ext pulses present , no cyanosis . neuro: axo3 , nonfocal. Objective Data Active Medications Acamprosate (Acamprosate Calcium 333 Mg Tablet.) 333 mg PO TID [facility] Last Admin: 01/26/22 14:43 Dose: 333 mg Documented by: NEHEMIAH Acetaminophen (Acetaminophen 325 Mg Tablet) 650 mg PO Q6H PRN PRN Reason: Pain, Mild (Pain Scale 1-3) Albuterol/Ipratropium (Albuterol/Iprat 2.5/0.5mg 3 Ml Ampul.Neb) 3 ml INHALE RQ4H PRN PRN Reason: Shortness of Breath/Wheezing Albuterol/Ipratropium (Albuterol/Iprat 2.5/0.5mg 3 Ml Ampul.Neb) 3 ml INHALE RQ4H WHILE AWAKE [facility] Last Admin: 01/26/22 15:15 Dose: 3 ml Documented by: VITO Benzonatate (Benzonatate 100 Mg Capsule) 100 mg PO TID PRN PRN Reason: Cough Buspirone HCl (Buspirone Hcl 5 Mg Tablet) 7.5 mg PO BID [facility] Last Admin: 01/26/22 09:19 Dose: 7.5 mg Documented by: NEHEMIAH Docusate Sodium (Docusate Sodium 100 Mg Capsule) 100 mg PO DAILY PRN PRN Reason: Constipation Docusate Sodium (Docusate Sodium 100 Mg Capsule) 100 mg PO DAILY PRN PRN Reason: Constipation Enoxaparin Sodium (Enoxaparin Sodium 40 Mg/0.4 Ml Syringe) 40 mg SUBCUT Q24H [facility] Last Admin: 01/26/22 09:29 Dose: Not Given Documented by: NEHEMIAH Non-Admin Reason: Patient Refused Folic Acid (Folic Acid 1 Mg Tablet) 1 mg PO DAILY [facility] Last Admin: 01/26/22 09:19 Dose: 1 mg Documented by: NEHEMIAH Gabapentin (Gabapentin 100 Mg Capsule) 100 mg PO BID [facility] Last Admin: 01/26/22 09:19 Dose: 100 mg Documented by: NEHEMIAH Guaifenesin (Guaifenesin [place] 600 Mg Tab.Er.12h) 600 mg PO BID [facility] Last Admin: 01/26/22 09:19 Dose: 600 mg Documented by: NEHEMIAH Hydroxyzine HCl (Hydroxyzine Hcl 10 Mg Tablet) 10 mg PO Q24H [facility] Last Admin: 01/25/22 21:22 Dose: 10 mg Documented by: RITIKA Megestrol Acetate (Megestrol Acetate 400 Mg/10 Ml Oral.Susp) 200 mg PO BID [facility] Last Admin: 01/26/22 09:20 Dose: 200 mg Documented by: NEHEMIAH Methylprednisolone Sodium Succinate (Methylprednisolone Sod Succ 40 Mg/Ml Vial) 40 mg IVPUSH Q12H [facility] Last Admin: 01/26/22 09:19 Dose: 40 mg Documented by: NEHEMIAH Olanzapine (Olanzapine 10 Mg Tablet) 10 mg PO BEDTIME [facility] Last Admin: 01/25/22 21:23 Dose: 10 mg Documented by: RITIKA Ondansetron HCl (Ondansetron Hcl 4 Mg/2 Ml Vial) 4 mg IVPUSH Q8H PRN PRN Reason: Nausea and Vomiting Oxymetazoline HCl (Oxymetazoline Hcl 0.05 % Nasal 15 Ml [place]) 1 spray NOSTRIL-B Q12H [facility] Last Admin: 01/26/22 09:21 Dose: 1 spray Documented by: NEHEMIAH Pharmacy Consult (Consult Rx Perform Med Rec) 1 each MISCELLANE ONCE PRN PRN Reason: Consult order Psyllium Hydrophilic Mucilloid (Psyllium Seed 3.4 Gm Powd.Pack) 3.4 gm PO DAILY [facility] Last Admin: 01/26/22 09:22 Dose: 3.4 gm Documented by: NEHEMIAH Sodium Chloride (0.9 % Sodium Chloride Flush 3 Ml Syringe) 3 ml IVFLUSH QSHIFT [facility] Last Admin: 01/26/22 14:52 Dose: 3 ml Documented by: NEHEMIAH Tamsulosin HCl (Tamsulosin Hcl 0.4 Mg Capsule) 0.4 mg PO DAILY [facility] Last Admin: 01/26/22 09:19 Dose: 0.4 mg Documented by: NEHEMIAH Tiotropium [place] (Tiotropium [place] 18 Mcg Cap.W.Dev) 2 puff INHALE DAILY [facility] Last Admin: 01/26/22 07:23 Dose: Not Given Documented by: VITO Non-Admin Reason: Med Not Available Trazodone HCl (Trazodone Hcl 100 Mg Tablet) 100 mg PO BEDTIME PRN PRN Reason: Insomnia Labs CBC & Chem 7: 01/24/22 23:05 01/24/22 23:05 Microbiology Microbiology Results: Microbiology 01/24/22 23:05 Blood Culture - Preliminary Blood - Venous No growth after 24 hours. 01/24/22 23:05 Blood Culture - Preliminary Blood - Venous No growth after 24 hours. Assessment and Plan (1) COPD exacerbation: Status: Acute Plan 66-year-old male with past medical history of COPD presents to the hospital with cough, shortness of breath as well as sputum production acute hypoxic respiratory failure sec acute COPD exacerbation - dyspnea , has increased sputum production and cough - no evidence of pneumonia on chest x-ray, BNP negative, COVID-19, influenza negative - will treat with Solu-Medrol, DuoNeb ?still short of breath given our long treatment with albuterol- magnesium - monitor O2 # schizophrenia - continue home meds ,, no acute decompensation # tobacco use disorder continue nicotine patch counseling done # VTE ppx - LMWH, SCDs # code - full code DVT prophylaxis: Lovenox ? Need for inpatient:? COPD exacerbation- require nebs, steroids IV Quality Stroke Does the patient have a stroke diagnosis?: No VTE Prior VTE?: No VTE Risk Level:: Medical - moderate - high VTE Device Contraindication: Treatment Not Indicated VTE Drug Contraindication: N/A - Med Ordered
[2022-01-26] MEDS: OLANZapine 10 MG TABLET PO (19:56)
[2022-01-26] MEDS: Benzonatate 100 MG CAPSULE PO (19:57)
[2022-01-26] MEDS: hydrOXYzine HCL 10 MG TABLET PO (19:58)
--- NOTE | 2022-01-26 21:02 | PC.NURSE ---
Upon admission pt refused security measures for high fall. Pt is refusing bed alarm. refusing to remain in bed. Patient is agreeable to having a camera in the room as long as it doesn't STAT alarm him.
[2022-01-26] MEDS: traZODone HCL 100 MG TABLET PO (22:58)
[2022-01-27] VITALS (7 sets, daily range): BP systolic 112–136; BP diastolic 57–83; PULSE 74–108; RESP 16–20; TEMP 36.6–37.6; O2SAT 93–100
[2022-01-27] MEDS: Albuterol/Iprat 2.5/0.5MG 3 ML AMPUL.NEB INHALE ×3 (01:29→19:27)
[2022-01-27] MEDS: ALPRAZolam 0.5 MG TABLET PO (07:44)
--- NOTE | 2022-01-27 07:54 | P.PNIM_ITS ---
Subjective Subjective Date of Service: 01/27/22 Interval History: copd excerabation Physical Exam Vital Signs: Vital Signs: Last Vital Signs Temp 99.6 F 01/27/22 03:17 Pulse 74 01/27/22 03:17 Resp 16 01/27/22 03:17 BP 128/58 L 01/27/22 03:17 Pulse Ox 94 01/27/22 03:17 BMI result Body Mass Index 16.9 Objective Data Active Medications Acamprosate (Acamprosate Calcium 333 Mg Tablet.) 333 mg PO TID [facility] Last Admin: 01/26/22 19:57 Dose: 333 mg Documented by: VANIA Acetaminophen (Acetaminophen 325 Mg Tablet) 650 mg PO Q6H PRN PRN Reason: Pain, Mild (Pain Scale 1-3) Albuterol/Ipratropium (Albuterol/Iprat 2.5/0.5mg 3 Ml Ampul.Neb) 3 ml INHALE RQ4H PRN PRN Reason: Shortness of Breath/Wheezing Last Admin: 01/27/22 01:29 Dose: 3 ml Documented by: HALLIE Albuterol/Ipratropium (Albuterol/Iprat 2.5/0.5mg 3 Ml Ampul.Neb) 3 ml INHALE RQ4H WHILE AWAKE [facility] Last Admin: 01/26/22 20:28 Dose: 3 ml Documented by: HALLIE Benzonatate (Benzonatate 100 Mg Capsule) 100 mg PO TID PRN PRN Reason: Cough Last Admin: 01/26/22 19:57 Dose: 100 mg Documented by: VANIA Buspirone HCl (Buspirone Hcl 5 Mg Tablet) 7.5 mg PO BID [facility] Last Admin: 01/26/22 19:57 Dose: 7.5 mg Documented by: VANIA Docusate Sodium (Docusate Sodium 100 Mg Capsule) 100 mg PO DAILY PRN PRN Reason: Constipation Docusate Sodium (Docusate Sodium 100 Mg Capsule) 100 mg PO DAILY PRN PRN Reason: Constipation Enoxaparin Sodium (Enoxaparin Sodium 40 Mg/0.4 Ml Syringe) 40 mg SUBCUT Q24H [facility] Last Admin: 01/26/22 09:29 Dose: Not Given Documented by: NEHEMIAH Non-Admin Reason: Patient Refused Folic Acid (Folic Acid 1 Mg Tablet) 1 mg PO DAILY [facility] Last Admin: 01/26/22 09:19 Dose: 1 mg Documented by: NEHEMIAH Gabapentin (Gabapentin 100 Mg Capsule) 100 mg PO BID [facility] Last Admin: 01/26/22 20:12 Dose: 100 mg Documented by: VANIA Guaifenesin (Guaifenesin [place] 600 Mg Tab.Er.12h) 600 mg PO BID [facility] Last Admin: 01/26/22 19:57 Dose: 600 mg Documented by: VANIA Hydroxyzine HCl (Hydroxyzine Hcl 10 Mg Tablet) 10 mg PO Q24H [facility] Last Admin: 01/26/22 19:58 Dose: 10 mg Documented by: VANIA Megestrol Acetate (Megestrol Acetate 400 Mg/10 Ml Oral.Susp) 200 mg PO BID [facility] Last Admin: 01/26/22 19:57 Dose: 200 mg Documented by: VANIA Methylprednisolone Sodium Succinate (Methylprednisolone Sod Succ 40 Mg/Ml Vial) 40 mg IVPUSH Q12H [facility] Last Admin: 01/26/22 19:58 Dose: 40 mg Documented by: VANIA Olanzapine (Olanzapine 10 Mg Tablet) 10 mg PO BEDTIME [facility] Last Admin: 01/26/22 19:56 Dose: 10 mg Documented by: VANIA Ondansetron HCl (Ondansetron Hcl 4 Mg/2 Ml Vial) 4 mg IVPUSH Q8H PRN PRN Reason: Nausea and Vomiting Oxymetazoline HCl (Oxymetazoline Hcl 0.05 % Nasal 15 Ml [place]) 1 spray NOSTRIL- B Q12H [facility] Last Admin: 01/26/22 20:10 Dose: Not Given Documented by: VANIA Non-Admin Reason: Med Not Available Pharmacy Consult (Consult Rx Perform Med Rec) 1 each MISCELLANE ONCE PRN PRN Reason: Consult order Psyllium Hydrophilic Mucilloid (Psyllium Seed 3.4 Gm Powd.Pack) 3.4 gm PO DAILY [facility] Last Admin: 01/26/22 09:22 Dose: 3.4 gm Documented by: NEHEMIAH Sodium Chloride (0.9 % Sodium Chloride Flush 3 Ml Syringe) 3 ml IVFLUSH QSHIFT [facility] Last Admin: 06/01/22 20:13 Dose: 3 ml Documented by: VANIA Tamsulosin HCl (Tamsulosin Hcl 0.4 Mg Capsule) 0.4 mg PO DAILY [facility] Last Admin: 01/26/22 09:19 Dose: 0.4 mg Documented by: NEHEMIAH Tiotropium [place] (Tiotropium [place] 18 Mcg Cap.W.Dev) 2 puff INHALE DAILY [facility] Last Admin: 01/26/22 07:23 Dose: Not Given Documented by: VITO Non-Admin Reason: Med Not Available Trazodone HCl (Trazodone Hcl 100 Mg Tablet) 100 mg PO BEDTIME PRN PRN Reason: Insomnia Last Admin: 01/26/22 22:58 Dose: 100 mg Documented by: VANIA Labs CBC & Chem 7: 01/24/22 23:05 01/24/22 23:05 Microbiology Microbiology Results: Microbiology 01/24/22 23:05 Blood Culture - Preliminary Blood - Venous No growth after 48 hours. 01/24/22 23:05 Blood Culture - Preliminary Blood - Venous No growth after 48 hours. Assessment and Plan (1) COPD exacerbation: Status: Acute Plan 66-year-old male with past medical history of COPD presents to the hospital with cough, shortness of breath as well as sputum production acute hypoxic respiratory failure sec acute COPD exacerbation - dyspnea , has increased sputum production and cough - no evidence of pneumonia on chest x-ray, BNP negative, COVID-19, influenza negative - will treat with Solu-Medrol, DuoNeb ?still short of breath given our long treatment with albuterol- magnesium - monitor O2 # schizophrenia - continue home meds ,, no acute decompensation # tobacco use disorder continue nicotine patch counseling done # VTE ppx - LMWH, SCDs # code - full code DVT prophylaxis: Lovenox ? Need for inpatient:? COPD exacerbation- require nebs, steroids IV Quality Stroke Does the patient have a stroke diagnosis?: No VTE Prior VTE?: No VTE Risk Level:: Medical - moderate - high VTE Device Contraindication: Treatment Not Indicated VTE Drug Contraindication: N/A - Med Ordered
[2022-01-27] MEDS: Oxymetazoline HCl 0.05 % Nasal 15 ML SPRAY 1 SPRAY NOSTRIL-B ×2 (08:01→23:56)
[2022-01-27] MEDS: Gabapentin 100 MG CAPSULE PO ×2 (08:01→20:53)
[2022-01-27] MEDS: guaiFENesin LA 600 MG TAB.ER.12H PO ×2 (08:01→20:53)
[2022-01-27] MEDS: Acamprosate Calcium 333 MG TABLET.DR PO ×3 (08:01→20:50)
[2022-01-27] MEDS: Tamsulosin HCL 0.4 MG CAPSULE PO (08:06)
[2022-01-27] MEDS: Folic Acid 1 MG TABLET PO (08:06)
[2022-01-27] MEDS: busPIRone HCl 5 MG TABLET 7.5 MG PO ×2 (08:06→20:51)
[2022-01-27] MEDS: Megestrol Acetate 400 MG/10 ML ORAL.SUSP 200 MG PO ×2 (08:07→20:48)
[2022-01-27] MEDS: methylPREDNISolone Sod Succ 40 MG/ML VIAL IVPUSH ×2 (08:09→20:49)
--- NOTE | 2022-01-27 12:27 | P.DS_ITS ---
DS: Providers Provider Date of Service: 01/27/22 Date of admission: 01/25/22 01:31 Primary care physician: APRYL Bah DS: Diagnosis Discharge Diagnosis (1) COPD exacerbation: Status: Acute DS: Summary Hospital Course Hospital Course: 66-year-old male with past medical history of COPD, pneumothorax, and schizophrenia presents to the hospital with complaints of shortness of breath.? Patient reports cough as well as sputum production for the past 2 days.? Patient denies any fever no chills.? No chest pain, no abdominal pain nausea or vomiting, no diarrhea constipation, no urinary symptoms and no lower extremity edema. Per nurse report pt drops to O2 of 87% on minimal activity. On arrival to the ED patient hemodynamically stable with no significant abnormal vitals Labs are significant for WBC count 10.8, otherwise unremarkable. Chest x-ray negative for any pneumonia, COVID-19 RSV, influenza negative. Patient will be admitted for management of COPD exacerbation. Hopsital course: Admitted for COPD exacerbation- started on IV steroid, nebs- seems shortness of breathto be improved. walked fine with staff and maintain saturations above 90. patient will going home with p.o. steroids- continue home COPD medications. strongly Advised to quit smoking, complete the course of steroids. follow-up with primary doctor in a week. Above management discussed with the patient in detail length he understand and in agreement with the above plan, time spent 50 minutes and 50% time spent on counseling. Significant findings: As above. Procedures performed: None. Treatment and response: As above. Complications: None. Time Spent with Patient Time attestation: Total time spent providing and/or coordinating discharge services: Discharge coordination time: Greater than 30 minutes Quality: Safe Use of Opioids Does Pt have an Active Cancer Diagnosis on the Problem List?: No Quality: Stroke Does the patient have a stroke diagnosis?: No Physical Exam Vital Signs: Vital Signs: Last Vital Signs Temp 99.4 F 01/27/22 11:30 Pulse 84 01/27/22 11:30 Resp 18 01/27/22 11:30 BP 112/83 01/27/22 11:30 Pulse Ox 96 01/27/22 11:30 BMI result Body Mass Index 16.9 Appearance: Alert.? Oriented X3.? ? cvs: rrr, [id number] , no murmur res: clear to auscultation ,no rhonchii or wheezing abd: no rebound or guarding ,nt, bs present. ext pulses present , no cyanosis . neuro: axo3 , nonfocal. ? DS: Data Data Completed and Pending Labs on day of discharge: Preliminary micro results at discharge 01/24/22 23:05 Blood Culture - Preliminary Blood - Venous No growth after 48 hours. 01/24/22 23:05 Blood Culture - Preliminary Blood - Venous No growth after 48 hours. Additional Comments Additional comments: XR/XR chest 1V IMPRESSION: Chronic findings with no overt consolidative disease or effusion. ? Discharge Plan Discharge Patient Disposition: Home, Self-Care Discharge Diagnosis: copd excerebation Referrals: All Nicholas PA [Primary Care Provider] - 1 Week Discharge Medications: New prednisone 20 mg tablet 40 mg PO DAILY Qty: 6 0RF loratadine 10 mg tablet 10 mg PO DAILY Qty: 7 0RF Continued olanzapine 10 mg Tablet 10 mg PO BEDTIME 0RF acetaminophen-codeine 300-30 mg tablet 1 tab PO BID PRN (Reason: Pain) 0RF psyllium Powder 1 tbsp PO DAILY 0RF Rx Instructions: mix into at least 8 oz of water or juice before administering tamsulosin 0.4 mg Capsule 0.4 mg PO DAILY 0RF trazodone 100 mg Tablet 100 mg PO BEDTIME PRN (Reason: Insomnia) 0RF benzonatate 100 mg Capsule 100 mg PO TID PRN (Reason: Cough) 0RF fluticasone propion-salmeterol [Advair Diskus] 500-50 mcg/dose Blister With Device 1 inh INHALATION BID 0RF docusate sodium 100 mg Capsule 100 mg PO DAILY PRN (Reason: Constipation) 0RF buspirone 7.5 mg Tablet 7.5 mg PO BID 0RF folic acid 1 mg Tablet 1 mg PO DAILY 0RF gabapentin 100 mg Capsule 100 mg PO BID 0RF albuterol sulfate 90 mcg/actuation Hfa Aerosol Inhaler 2 puff INHALATION Q4-6H PRN (Reason: Wheezing) 0RF hydroxyzine HCl 10 mg Tablet 10 mg PO Q24H 0RF oxymetazoline 0.05 % [place],Non-Aerosol 1 spray INTRANASAL Q12H 0RF acamprosate 333 mg Tablet,Delayed Release (Dr/Ec) 333 mg PO TID 0RF tiotropium bromide 2.5 mcg/actuation Mist 2 puff INHALATION DAILY 0RF megestrol 400 mg/10 mL (10 mL) Suspension 200 mg PO BID 0RF guaifenesin 600 mg Tablet Extended Release 12hr 600 mg PO BID 0RF Discharge Orders: Discharge Order (Routine); Ordered 01/27/22 Ordered By: Lukasz Herman Diet: advance to usual diet Activity on Discharge: As tolerated Stand Alone Forms: Patient Portal Discharge page Care Plan Goals: Admitted for COPD exacerbation- started on IV steroid, nebs- seems shortness of breathto be improved. walked fine with staff and maintain saturations above 90. patient will going home with p.o. steroids- continue home COPD medications. Health Concerns: strongly Advised to quit smoking, complete the course of steroids. follow-up with primary doctor in a week Plan of Treatment: as above. Assessment: As above.
[2022-01-27] MEDS: 0.9 % Sodium Chloride Flush 3 ML SYRINGE IVFLUSH (20:49)
[2022-01-27] MEDS: OLANZapine 10 MG TABLET PO (20:51)
[2022-01-27] MEDS: hydrOXYzine HCL 10 MG TABLET PO (20:52)
[2022-01-27] MEDS: Docusate Sodium 100 MG CAPSULE PO (20:59)
--- NOTE | 2022-01-27 22:03 | PC.NURSE ---
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 aware pt still here.
[2022-01-27] MEDS: traZODone HCL 100 MG TABLET PO (23:56)
[2022-01-28] VITALS (9 sets, daily range): BP systolic 147; BP diastolic 67–73; PULSE 69–104; RESP 17–24; TEMP 36.5–37.1; O2SAT 92–97; BMI 16.9
--- NOTE | 2022-01-28 07:19 | HO.PM.IMPN ---
Subjective Subjective Date of Service: 01/27/22 Interval History: copd excerebation Review of Systems sob seems improved. Physical Exam Vital Signs: Vital Signs: Last Vital Signs vitals from 01/27/22 reviewed. BMI result Appearance: Alert.? Oriented X3.? ? Short of breath. cvs: rrr, [id number] , no murmur res: clear to auscultation ,no rhonchii or wheezing abd: no rebound or guarding ,nt, bs present. ext pulses present , no cyanosis . neuro: axo3 , nonfocal. Objective Data Active Medications Acamprosate (Acamprosate Calcium 333 Mg Tablet.) 333 mg PO TID [facility] Last Admin: 01/27/22 20:50 Dose: 333 mg Documented by: AISHWARYA Acetaminophen (Acetaminophen 325 Mg Tablet) 650 mg PO Q6H PRN PRN Reason: Pain, Mild (Pain Scale 1-3) Albuterol/Ipratropium (Albuterol/Iprat 2.5/0.5mg 3 Ml Ampul.Neb) 3 ml INHALE RQ4H PRN PRN Reason: Shortness of Breath/Wheezing Last Admin: 01/27/22 01:29 Dose: 3 ml Documented by: HALLIE Albuterol/Ipratropium (Albuterol/Iprat 2.5/0.5mg 3 Ml Ampul.Neb) 3 ml INHALE RQ4H WHILE AWAKE [facility] Last Admin: 01/27/22 19:27 Dose: 3 ml Documented by: GEO Benzonatate (Benzonatate 100 Mg Capsule) 100 mg PO TID PRN PRN Reason: Cough Last Admin: 01/26/22 19:57 Dose: 100 mg Documented by: VANIA Buspirone HCl (Buspirone Hcl 5 Mg Tablet) 7.5 mg PO BID [facility] Last Admin: 01/27/22 20:51 Dose: 7.5 mg Documented by: AISHWARYA Docusate Sodium (Docusate Sodium 100 Mg Capsule) 100 mg PO DAILY PRN PRN Reason: Constipation Last Admin: 01/27/22 20:59 Dose: 100 mg Documented by: ANDRERINRhett Docusate Sodium (Docusate Sodium 100 Mg Capsule) 100 mg PO DAILY PRN PRN Reason: Constipation Enoxaparin Sodium (Enoxaparin Sodium 40 Mg/0.4 Ml Syringe) 40 mg SUBCUT Q24H [facility] Last Admin: 01/27/22 08:59 Dose: Not Given Documented by: AZAEL Non-Admin Reason: Patient Refused Folic Acid (Folic Acid 1 Mg Tablet) 1 mg PO DAILY [facility] Last Admin: 01/27/22 08:06 Dose: 1 mg Documented by: MARIE-KLEREBEL Gabapentin (Gabapentin 100 Mg Capsule) 100 mg PO BID [facility] Last Admin: 01/27/22 20:53 Dose: 100 mg Documented by: AISHWARYA Guaifenesin (Guaifenesin [place] 600 Mg Tab.Er.12h) 600 mg PO BID [facility] Last Admin: 01/27/22 20:53 Dose: 600 mg Documented by: AISHWARYA Hydroxyzine HCl (Hydroxyzine Hcl 10 Mg Tablet) 10 mg PO Q24H [facility] Last Admin: 01/27/22 20:52 Dose: 10 mg Documented by: AISHWARYA Megestrol Acetate (Megestrol Acetate 400 Mg/10 Ml Oral.Susp) 200 mg PO BID [facility] Last Admin: 01/27/22 20:48 Dose: 200 mg Documented by: AISHWARYA Methylprednisolone Sodium Succinate (Methylprednisolone Sod Succ 40 Mg/Ml Vial) 40 mg IVPUSH Q12H [facility] Last Admin: 01/27/22 20:49 Dose: 40 mg Documented by: AISHWARYA Olanzapine (Olanzapine 10 Mg Tablet) 10 mg PO BEDTIME [facility] Last Admin: 01/27/22 20:51 Dose: 10 mg Documented by: AISHWARYA Ondansetron HCl (Ondansetron Hcl 4 Mg/2 Ml Vial) 4 mg IVPUSH Q8H PRN PRN Reason: Nausea and Vomiting Oxymetazoline HCl (Oxymetazoline Hcl 0.05 % Nasal 15 Ml [place]) 1 spray NOSTRIL-B Q12H [facility] Last Admin: 01/27/22 23:56 Dose: 1 spray Documented by: AISHWARYA Pharmacy Consult (Consult Rx Perform Med Rec) 1 each MISCELLANE ONCE PRN PRN Reason: Consult order Psyllium Hydrophilic Mucilloid (Psyllium Seed 3.4 Gm Powd.Pack) 3.4 gm PO DAILY [facility] Last Admin: 01/27/22 08:14 Dose: 3.4 gm Documented by: DELILAH Sodium Chloride (0.9 % Sodium Chloride Flush 3 Ml Syringe) 3 ml IVFLUSH QSHIFT [facility] Last Admin: 01/27/22 20:49 Dose: 3 ml Documented by: AISHWARYA Tamsulosin HCl (Tamsulosin Hcl 0.4 Mg Capsule) 0.4 mg PO DAILY [facility] Last Admin: 01/27/22 08:06 Dose: 0.4 mg Documented by: DELILAH Tiotropium [place] (Tiotropium [place] 18 Mcg Cap.W.Dev) 2 puff INHALE DAILY [facility] Last Admin: 01/27/22 08:34 Dose: 2 puff Documented by: BREBENNETT Trazodone HCl (Trazodone Hcl 100 Mg Tablet) 100 mg PO BEDTIME PRN PRN Reason: Insomnia Last Admin: 01/27/22 23:56 Dose: 100 mg Documented by: AISHWARYA Labs CBC & Chem 7: 01/24/22 23:05 01/24/22 23:05 Assessment and Plan (1) COPD exacerbation: Status: Acute Plan 66-year-old male with past medical history of COPD presents to the hospital with cough, shortness of breath as well as sputum production acute hypoxic respiratory failure sec acute COPD exacerbation - dyspnea , has increased sputum production and cough - no evidence of pneumonia on chest x-ray, BNP negative, COVID-19, influenza negative - will treat with Solu-Medrol, DuoNeb ?still short of breath given our long treatment with albuterol- magnesium - monitor O2 # schizophrenia - continue home meds ,, no acute decompensation # tobacco use disorder continue nicotine patch counseling done # VTE ppx - LMWH, SCDs # code - full code DVT prophylaxis: Lovenox ? Need for inpatient:? COPD exacerbation.patient could not go on 01/27/22 -did not get ride back home Quality Stroke Does the patient have a stroke diagnosis?: No VTE Prior VTE?: No VTE Risk Level:: Medical - moderate - high VTE Device Contraindication: Treatment Not Indicated VTE Drug Contraindication: N/A - Med Ordered
[2022-01-28] MEDS: 0.9 % Sodium Chloride Flush 3 ML SYRINGE IVFLUSH (09:00)
[2022-01-28] MEDS: Tamsulosin HCL 0.4 MG CAPSULE PO (09:01)
[2022-01-28] MEDS: Folic Acid 1 MG TABLET PO (09:01)
[2022-01-28] MEDS: guaiFENesin LA 600 MG TAB.ER.12H PO (09:01)
[2022-01-28] MEDS: Gabapentin 100 MG CAPSULE PO (09:01)
[2022-01-28] MEDS: Acamprosate Calcium 333 MG TABLET.DR PO (09:01)
[2022-01-28] MEDS: busPIRone HCl 5 MG TABLET 7.5 MG PO (09:02)
[2022-01-28] MEDS: methylPREDNISolone Sod Succ 40 MG/ML VIAL IVPUSH (09:02)
[2022-01-28] MEDS: Megestrol Acetate 400 MG/10 ML ORAL.SUSP 200 MG PO (09:04)
--- NOTE | 2022-01-28 09:42 | MHC.CM.PN ---
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
[2022-01-28] MEDS: Albuterol/Iprat 2.5/0.5MG 3 ML AMPUL.NEB INHALE ×2 (10:38→11:15)
[2022-01-28] MEDS: ALPRAZolam 0.25 MG TABLET PO (11:30)
--- NOTE | 2022-01-28 12:06 | MHC.CM.PN ---
TAXI VOUCHER GIVEN PLAN IS 1245 TO [facility] AND CALL TO YELLOW CAB PATIENT IN AGREEMENT RN AWARE OF PLAN
--- NOTE | 2022-01-28 12:59 | PC.NURSE ---
Patient O2 sat 95% on room air at rest. Patient ambulated in hallway and maintained O2 sat of 94% to 96% on room air. Patient cleared to d/c. Patient given ride home by [facility] shuttle.
--- NOTE | 2022-01-28 14:33 | MHC.CM.PN ---
PATIENT USED C SHUTTLE TO RETURN HOME. ON UNIT, STATS WERE 93% AND HR 115. PATIENT REMINDED TO USE DEEP BREATHING TECHNIQUES TO SELF-SOOTHE IN ATTEMPTS TO DECREASE HR. WHILE IN SHUTTLE, O2 STATS 93% AND HR 105.
== END 2022-01-28 13:03 | disposition home or self-care (01) | DRG 190 ==
LOC: HO.ED 01-25 00:18 → HO.EDOVER 01-25 02:35 → HO.S3 01-26 17:33
PROVIDERS: Admitting Provider Internal Medicine; Emergency Provider Emergency Medicine Emergency Medical Services; PCP Physician Assistant Medical; Visit Provider Internal Medicine
DX: J44.1 Chronic obstructive pulmonary disease with (acute) exacerbation (principal); J96.01 Acute respiratory failure with hypoxia; F20.9 Schizophrenia, unspecified; Z20.822 Contact with and (suspected) exposure to COVID-19; F17.210 Nicotine dependence, cigarettes, uncomplicated; Z71.6 Tobacco abuse counseling; Z79.51 Long term (current) use of inhaled steroids; Z79.899 Other long term (current) drug therapy
CPT/HCPCS: 0241U; 36415; 71045; 80048; 83605; 83880; 84484; 85025; 87040; 93005; 94640; 94644; 96365; 96367; 96375; 99285; J0696; J2920; J2930; J3475

== ENCOUNTER 2022-02-07 21:22 | Inpatient (IN) | payer MEDICARE, BC, SELFPAY ==
--- NOTE | ~2022-02-07 | XR_ITS ---
EXAMINATION: XR CHEST CLINICAL INFORMATION: Shortness of breath. COMPARISON: 01/24/2022 chest radiograph. TECHNIQUE: Frontal view of the chest was obtained. FINDINGS: Mild diffuse coarsened interstitial markings are seen bilaterally. There is mild elevation of the left hemidiaphragm without significant change. The heart and mediastinal structures are unremarkable. Chronic deformity of the left fifth rib. XR/XR chest 1V IMPRESSION: Chronic changes without acute cardiopulmonary process.
--- NOTE | ~2022-02-07 | XR_ITS ---
EXAMINATION: XR CHEST CLINICAL INFORMATION: Chronic obstructive pulmonary disease. COMPARISON: 07/08/2020 and 02/07/2022 TECHNIQUE: Frontal view of the chest was obtained. FINDINGS: Lungs are hyperlucent and hyperexpanded from chronic emphysematous disease. There appears to be chronic thickening of bronchial g[place]. No acute findings. No pulmonary consolidation, pleural effusion or pneumothorax. Cardiac silhouette is normal in size. There is chronic deformity of the left posterior fifth rib.. There appears to be an enthesophyte of the greater tuberosity of the left humerus. No acute skeletal abnormality. XR/XR chest 1V IMPRESSION: * Chronic obstructive pulmonary disease. * No evidence of pneumonia. No acute findings.
--- NOTE | 2022-02-07 21:27 | ED_ITS ---
HPI - SOB/Dyspnea General Chief Complaint: Dyspnea Stated Complaint: sob Time Seen by Provider: 02/07/22 21:27 Source: patient Mode of arrival: EMS Limitations: no limitations History of Present Illness HPI Narrative: shortness of breath started suddenly after having a cigarette. MD elicited complaint: shortness of breath Pertinent past history: COPD Onset (ago): hour(s) Timing: constant Severity: moderate Known history of: COPD Associated symptoms: other (anxious) Treatment prior to arrival: oxygen Related Data Home Medications Medication Instructions Recorded Confirmed acamprosate 333 mg tablet,delayed 333 mg PO TID 01/25/22 01/25/22 release acetaminophen 300 mg-codeine 30 mg 1 tab PO BID PRN Pain 01/25/22 01/25/22 tablet albuterol sulfate 90 mcg/actuation 2 puff inhalation Q4-6H PRN 01/25/22 01/25/22 aerosol inhaler Wheezing benzonatate 100 mg capsule 100 mg PO TID PRN Cough 01/25/22 01/25/22 buspirone 7.5 mg tablet 7.5 mg PO BID 01/25/22 01/25/22 docusate sodium 100 mg capsule 100 mg PO DAILY PRN Constipation 01/25/22 01/25/22 fluticasone 500 mcg-salmeterol 50 1 inh inhalation BID 01/25/22 01/25/22 mcg/dose blistr powdr for inhalation (Advair Diskus) folic acid 1 mg tablet 1 mg PO DAILY 01/25/22 01/25/22 gabapentin 100 mg capsule 100 mg PO BID 01/25/22 01/25/22 guaifenesin 600 mg tablet, 600 mg PO BID 01/25/22 01/25/22 extended release 12 hr hydroxyzine HCl 10 mg tablet 10 mg PO Q24H anxiety 01/25/22 01/25/22 megestrol 400 mg/10 mL (10 mL) 200 mg PO BID 01/25/22 01/25/22 oral suspension olanzapine 10 mg tablet 10 mg PO BEDTIME 01/25/22 01/25/22 oxymetazoline 0.05 % nasal spray 1 spray intranasal Q12H 01/25/22 01/25/22 psyllium 1 tbsp PO DAILY 01/25/22 01/25/22 tamsulosin 0.4 mg capsule 0.4 mg PO DAILY 01/25/22 01/25/22 tiotropium bromide 2.5 2 puff inhalation DAILY 01/25/22 01/25/22 mcg/actuation mist for inhalation trazodone 100 mg tablet 100 mg PO BEDTIME PRN Insomnia 01/25/22 01/25/22 Previous Rx's Medication Instructions Recorded loratadine 10 mg tablet 10 mg PO DAILY #7 tabs 01/27/22 prednisone 20 mg tablet 40 mg PO DAILY #6 tabs 01/27/22 Allergies Allergy/AdvReac Type Severity Reaction Status Date / Time tree and shrub pollen Allergy Mild Rash Verified 10/28/21 06:48 Review of Systems Constitutional: Constitutional: Reports no additional constitutional complaints Eyes: Eyes: Reports no additional eye complaints ENT: Denies dizziness Cardiovascular: Cardiovascular: Reports no additional cardiovascular complaints Respiratory: Respiratory: Reports as per HPI Gastrointestinal: Gastrointestinal: Reports no additional gastrointestinal complaints Musculoskeletal: Musculoskeletal: Reports no additional musculoskeletal complaints Integumentary/Breasts: Skin/Breast: Denies rash Neurologic: Reports system reviewed and no additional complaints, except as documented, Denies dizziness and Denies Sensory deficit (Neuro) Psychiatric: Psychiatric: Denies anxiety [facility] Past Medical History Medical History COPD (chronic obstructive pulmonary disease) COPD (chronic obstructive pulmonary disease) Pneumonia Pneumothorax Schizophrenia Umbilical hernia Surgical History No pertinent past surgical history Family History Family History Other No family history of coronary artery disease Social History Social History Household Members: None Household Members Other:: nancy Housing: Other Housing Other:: Hotel Do you presently have visiting nurse or other home services: Yes Alcohol intake: current Alcohol intake frequency: a few times a month Alcohol type: beer Patient Tobacco Use Status: Current everyday Tobacco user Tobacco use type: Cigar Cigarette Packs Per Day: 1 Cigarettes Per Day: 20.0 Second Hand Smoke Exposure: No Advance Directives: Yes Advance Directives on File: Yes Advance Directives Date on File: 03/22/21 service: Yes Current occupational status: 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 Physical Exam Vital Signs: Vital Signs: Last Vital Signs Temp 98.3 F 02/07/22 21:59 Pulse 98 02/07/22 23:06 Resp 18 02/07/22 23:06 BP 142/65 H 02/07/22 21:59 Pulse Ox 100 02/07/22 21:59 O2 Del Method 02/07/22 21:59 O2 Flow Rate 6 02/07/22 21:59 Oxygen Flow Rate 15 02/07/22 21:28 BMI result Body Mass Index 17.7 Const: Other: cachectic, short of breath retracting Orientation/consciousness: oriented to person and patient oriented x3 Limitations: no limitations HEENT: Head: Yes normal to inspection Ears: external ears normal General nose exam: Normal external nose present Mouth: Normal oral and palatal mucosa present and oropharynx normal Throat: Yes posterior oropharynx normal Eyes: General: appearance normal, both eyes and all related structures Neck: Other: supple Neck: Yes normal visual inspection Chest: Chest palpation & inspection: normal inspection of the chest Resp: Other: distant, slight wheeze poor airmovement Cardio: Jugular venous distension: no JVD Rate: regular rate Rhythm: regular rhythm Heart sounds: S1 normal heart sound present and S2 normal heart sound present GI: Inspection: Yes normal to inspection Palpation (GI): Soft to palpation, nontender and No hepatosplenomegaly present Auscultation: normal bowel sounds : General: Yes no CVA tenderness Back/Spine/Pelvis: Back: no CVA tenderness Skin: General skin exam: no rashes or lesions noted Neuro: General: oriented to person and patient oriented x3 Cranial nerves: Yes CN's II-XII intact bilaterally Motor exam (neuro): 5/5 motor strength present throughout Sensory Exam: No Sensory deficit (Neuro) Extrem: General: Yes normal to inspection Psych: Appearance: grossly normal Course Reevaluation(s) Reevaluation #1: Patient wants to leave but is still struggling to breath, will turn off oxygen write for another treatment and reeval Time: 23:01 Reevaluation #2: Patient with COPD exacerbation, no evidence of infection, xray with chronic changes will admit, he has received steroids and treatments Time: 00:06 MDM - SOB/Dyspnea Lab Data Result diagrams: 02/07/22 21:52 02/07/22 21:52 Labs: Lab Results 02/07/22 02/07/2202/07/22 Range/Units 21:52 21:52 21:53 WBC 15.2 H (4.8-10.8) X10*3/uL RBC 4.41 L (4.60-5.80) X10*6/uL Hgb 13.8 L (14.0-18.0) g/dl Hct 40.9 L (42.0-52.0) % MCV 92.7 (80.0-98.0) fL MCH 31.3 (27.0-33.0) pg MCHC 33.7 (31.0-36.0) g/dl RDW 14.3 (11.0-16.0) % Plt Count 355 (160-400) X10*3/uL MPV 8.5 L (9.4-12.4) fL Immature Gran % (Auto) 0.4 (0.0-0.4) % Neut % (Auto) 70.0 (45-73) % Lymph % (Auto) 19.7 L (20-40) % [place] % (Auto) 6.5 (2-11) % Eos % (Auto) 3.1 (0-4) % Baso % (Auto) 0.3 (0-2) % Lymph # (Auto) 3.0 (1.2-4.9) X10*3/uL [place] # (Auto) 1.0 (0.1-1.2) X10*3/uL Eos # (Auto) 0.5 H (0.0-0.4) X10*3/uL Baso # (Auto) 0.0 (0.0-0.2) X10*3/uL Abs Immat Gran (auto) 0.06 H (0.00-0.03) X10*3/uL Absolute Neuts (auto) 10.7 H (2.0-8.3) x10*3/uL Absolute Nucleated RBC 0.000 (0.0-0.012) X10*3/uL Nucleated RBC % (auto) 0.0 (0.0-0.2) /100WBC Troponin I High Sens 11.8 (<3.5-35.0) ng/L COVID-19 ([facility]) Negative (Negative) COVID-19 Clin Com See Note Imaging Data Chest x-ray: Radiologist's impression: IMPRESSION: Chronic changes without acute cardiopulmonary process. ? ECG Data Attestation: I personally reviewed and interpreted this ECG as follows: Interpretation: sinus 82, new flipped t isolated to V2 poor quality Critical Care Time Critical Care Time Attestation: I spent 35 minutes of critical care, with interventions, assessments, speaking to patient, consultants, and family. Patient with respiratory failure secondary to emphysema Discharge Plan Discharge Clinical Impression: COPD exacerbation, Emphysema lung Patient Disposition: Admitted As Inpatient
[2022-02-07 21:28] VITALS: BP 141/55; PULSE 88; RESP 22; TEMP 37.1; O2SAT 100; BMI 17.7
--- NOTE | 2022-02-07 21:29 | ECG_ITS ---
Test Reason : SOB Blood Pressure : / mmHG Vent. Rate : 082 BPM Atrial Rate : 082 BPM P-R Int : 134 ms QRS Dur : 076 ms QT Int : 368 ms P-R-T Axes : 059 034 052 degrees QTc Int : 429 ms Normal sinus rhythm Possible Left atrial enlargement T wave abnormality, consider anterior ischemia Abnormal ECG When compared with ECG of 24-JAN-2022 22:40, Criteria for Anteroseptal infarct are no longer Present T wave inversion now evident in Anterior leads T wave amplitude has increased in Lateral leads Referred By: Frankie Childs Electronically Signed By:Cuauhtemoc Doherty
[2022-02-07 21:43] VITALS: PULSE 98; RESP 24; O2SAT 100
[2022-02-07] MEDS: Albuterol/Iprat 2.5/0.5MG 3 ML AMPUL.NEB INHALE (21:43)
[2022-02-07] MEDS: methylPREDNISolone Sod Succ 125 MG/2 ML VIAL IVPUSH (21:56)
[2022-02-07 21:57] LABS: MANUAL DIFF FLAG NO
--- NOTE | 2022-02-07 21:57 | PC.NURSE ---
Addendum entered by Damaris Joya 02/08/22 07:04: report given to ALANA Medina Original Note: pt arrived alert and oriented from home via ambulance. pt stated that he was smoking his cigarette and develop sudden sob. pt refuse to get an IV n route, per EMS pt was sating 95% on RA, started on 15L non-rebreather. auditory wheezes notice. MD by bedside. pt started on continuos cardiac monitoring. respitory by bedside doing breathing tx. IV inserted. ekg and lab obtained
[2022-02-07 21:59] VITALS: BP 142/65; PULSE 85; RESP 18; TEMP 36.8; O2SAT 100
[2022-02-07 22:00] VITALS: RESP 18
[2022-02-07 22:11] LABS: Basophils Percent Auto 0.3 % (0-2); Eosinophils Absolute Auto 0.5 X10*3/uL (0.0-0.4); Eosinophils Percent Auto 3.1 % (0-4); Hematocrit 40.9 % (42.0-52.0); Hemoglobin 13.8 g/dl (14.0-18.0); Imm Gran Abs Auto 0.06 X10*3/uL (0.00-0.03); Imm Gran Pct Auto 0.4 % (0.0-0.4); Lymphocytes Percent Auto 19.7 % (20-40); Mean Corpuscular HGB Conc 33.7 g/dl (31.0-36.0); Mean Corpuscular Hemoglobin 31.3 pg (27.0-33.0); Mean Corpuscular Volume 92.7 fL (80.0-98.0); Mean Platelet Volume 8.5 fL (9.4-12.4); Monocytes Percent Auto 6.5 % (2-11); Neutrophils Absolute Auto 10.7 x10*3/uL (2.0-8.3); Platelet Count 355 X10*3/uL (160-400); Red Blood Count 4.41 X10*6/uL (4.60-5.80); Red Cell Distribution Width 14.3 % (11.0-16.0); White Blood Count 15.2 X10*3/uL (4.8-10.8)
[2022-02-07 22:17] LABS: Troponin-I High Sensitivity 11.8 ng/L (<3.5-35.0)
[2022-02-07 22:30] LABS: COVID-19 Test Negative (Negative)
[2022-02-07 23:06] VITALS: PULSE 98; RESP 18; O2SAT 98
[2022-02-07] MEDS: Albuterol Sulfate (0.083%) 2.5 MG/3 ML VIAL.NEB 7.5 MG INHALE (23:06)
[2022-02-08] VITALS (14 sets, daily range): BP systolic 128–143; BP diastolic 57–102; PULSE 75–105; RESP 14–22; TEMP 36.2–37.4; O2SAT 96–100
[2022-02-08] MEDS: busPIRone HCl 10 MG TABLET 7.5 MG PO (00:30)
[2022-02-08] MEDS: OLANZapine 10 MG TABLET PO (00:33)
[2022-02-08 03:51] LABS: Venous Blood Gas Refer to POC result
[2022-02-08 03:53] LABS: VBG Base Excess -4.2 mmol/L; VBG HCO3 19 mmol/L (22-26); VBG pCO2 30 mmHg; VBG pO2 68 mmHg
[2022-02-08 04:28] LABS: Anion Gap 14 (12-20); Blood Urea Nitrogen 6 mg/dL (9-16); Calcium 8.3 mg/dL (8.4-10.2); Carbon Dioxide 21 mmol/L (22-29); Chloride 105 mmol/L (96-108); Creatinine Clr Calc Pharmacy 82.7; Estimated Glomerular Filt Rate > 60; Glucose Random 150 mg/dL (60-115); Potassium 4.7 mmol/L (3.3-5.1); Sodium 135 mmol/L (135-145)
--- NOTE | 2022-02-08 05:44 | PM.IMHP ---
History of Present Illness Date of Service: 02/08/22 Chief Complaint: SOB 66-year-old male with past medical history of COPD, history of pneumothorax, schizophrenia, presents to the hospital with complaints of shortness of breath. Patient reports his symptoms started several days ago. He is complaining of cough, and increased sputum production. He denies any fever but has sweats, and chills. He denies any chest pain, no abdominal pain nausea or vomiting, no diarrhea, he has been constipated, no urinary symptoms and no lower extremity edema. He denies any recent travel or prolonged inactivity. On arrival to the ED patient hemodynamically stable According to ED physician patient was hypoxic although no documented hypoxia in chart. Labs on arrival of significant for WBC count of 15.2, hemoglobin of 13.8, hematocrit 40.9, COVID-19 negative, chest x-ray shows chronic changes with no acute cardiopulmonary process Patient will be admitted for further management of COPD exacerbation Review of Systems Review of Systems: Yes all other systems are reviewed and are negative [facility] Medical History COPD (chronic obstructive pulmonary disease) COPD (chronic obstructive pulmonary disease) Pneumonia Pneumothorax Schizophrenia Umbilical hernia Family History (Updated 02/08/22 @ 05:49 by Adolph Flores MD) Father CAD (coronary artery disease) Surgical History No pertinent past surgical history Social History Household Members: None Household Members Other:: nancy Housing: Other Housing Other:: Hotel Do you presently have visiting nurse or other home services: Yes Alcohol intake: current Alcohol intake frequency: a few times a month Alcohol type: beer Patient Tobacco Use Status: Current everyday Tobacco user Tobacco use type: Cigar Cigarette Packs Per Day: 1 Cigarettes Per Day: 20.0 Second Hand Smoke Exposure: No Advance Directives: Yes Advance Directives on File: Yes Advance Directives Date on File: 03/22/21 service: Yes Current occupational status: 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 Meds Allergies Allergy/AdvReac Type Severity Reaction Status Date / Time tree and shrub pollen Allergy Mild Rash Verified 10/28/21 06:48 Active Medications: Current Medications Pharmacy Consult (Consult Rx Perform Med Rec) 1 each MISCELLANE ONCE PRN PRN Reason: Consult order Home Medications Medication Instructions Recorded Confirmed Last Taken Type acamprosate 333 mg tablet,delayed 333 mg PO TID 01/25/22 01/25/22 Unknown History release acetaminophen 300 mg-codeine 30 mg 1 tab PO BID PRN Pain 01/25/22 01/25/22 Unknown History tablet albuterol sulfate 90 mcg/actuation 2 puff inhalation Q4-6H PRN 01/25/22 01/25/22 Unknown History aerosol inhaler Wheezing benzonatate 100 mg capsule 100 mg PO TID PRN Cough 01/25/22 01/25/22 Unknown History buspirone 7.5 mg tablet 7.5 mg PO BID 01/25/22 01/25/22 Unknown History docusate sodium 100 mg capsule 100 mg PO DAILY PRN Constipation 01/25/22 01/25/22 Unknown History fluticasone 500 mcg-salmeterol 50 1 inh inhalation BID 01/25/22 01/25/22 Unknown History mcg/dose blistr powdr for inhalation (Advair Diskus) folic acid 1 mg tablet 1 mg PO DAILY 01/25/22 01/25/22 Unknown History gabapentin 100 mg capsule 100 mg PO BID 01/25/22 01/25/22 Unknown History guaifenesin 600 mg tablet, 600 mg PO BID 01/25/22 01/25/22 Unknown History extended release 12 hr hydroxyzine HCl 10 mg tablet 10 mg PO Q24H anxiety 01/25/22 01/25/22 Unknown History megestrol 400 mg/10 mL (10 mL) 200 mg PO BID 01/25/22 01/25/22 Unknown History oral suspension olanzapine 10 mg tablet 10 mg PO BEDTIME 01/25/22 01/25/22 Unknown History oxymetazoline 0.05 % nasal spray 1 spray intranasal Q12H 01/25/22 01/25/22 Unknown History psyllium 1 tbsp PO DAILY 01/25/22 01/25/22 Unknown History tamsulosin 0.4 mg capsule 0.4 mg PO DAILY 01/25/22 01/25/22 Unknown History tiotropium bromide 2.5 2 puff inhalation DAILY 01/25/22 01/25/22 Unknown History mcg/actuation mist for inhalation trazodone 100 mg tablet 100 mg PO BEDTIME PRN Insomnia 01/25/22 01/25/22 Unknown History Physical Exam Vital Signs and Narrative: Vital Signs: Last Vital Signs Temp 98.3 F 02/07/22 21:59 Pulse 79 02/08/22 00:00 Resp 20 02/08/22 04:00 BP 142/65 H 02/07/22 21:59 Pulse Ox 98 02/08/22 02:00 O2 Del Method 02/08/22 02:00 O2 Flow Rate 6 02/08/22 02:00 Oxygen Flow Rate 15 02/07/22 21:28 BMI result Body Mass Index 17.7 Const: General: cooperative and no acute distress Orientation/consciousness: patient oriented x3 Eyes: General: appearance normal, both eyes and all related structures Resp: Other: Bilateral wheezing, using accessory muscles, tachypneic Effort & Inspection: normal respiratory effort Cardio: Rate: regular rate Rhythm: regular rhythm GI: Palpation (GI): Soft to palpation Auscultation: normal bowel sounds Skin: General skin exam: no rashes or lesions noted Neuro: General: patient oriented x3 Cognition (Neuro): normal cognition Extrem: General: Yes normal to inspection and Yes no pedal edema Results Labs CBC and Chem 7: 02/07/22 21:52 02/08/22 03:44 Labs: Laboratory Results - last 24 hr 02/07/22 02/07/22 02/07/22 21:52 21:52 21:53 MCV 92.7 MCH 31.3 MCHC 33.7 RDW 14.3 Plt Count 355 MPV 8.5 L Immature Gran % (Auto) 0.4 Neut % (Auto) 70.0 Lymph % (Auto) 19.7 L [place] % (Auto) 6.5 Eos % (Auto) 3.1 Baso % (Auto) 0.3 Lymph # (Auto) 3.0 [place] # (Auto) 1.0 Eos # (Auto) 0.5 H Baso # (Auto) 0.0 Abs Immat Gran (auto) 0.06 H Absolute Neuts (auto) 10.7 H Absolute Nucleated RBC 0.000 Nucleated RBC % (auto) 0.0 VBG pH VBG pCO2 VBG pO2 VBG HCO3 VBG O2 Saturation VBG Base Excess Anion Gap Estim Creat Clear Calc Estimated GFR Random Glucose Calcium Troponin I High Sens 11.8 COVID-19 ([facility]) Negative COVID-19 Clin Com See Note 02/08/22 02/08/22 03:44 03:47 MCV MCH MCHC RDW Plt Count MPV Immature Gran % (Auto) Neut % (Auto) Lymph % (Auto) [place] % (Auto) Eos % (Auto) Baso % (Auto) Lymph # (Auto) [place] # (Auto) Eos # (Auto) Baso # (Auto) Abs Immat Gran (auto) Absolute Neuts (auto) Absolute Nucleated RBC Nucleated RBC % (auto) VBG pH 7.40 VBG pCO2 30 VBG pO2 68 VBG HCO3 19 L VBG O2 Saturation 92.0 VBG Base Excess -4.2 Anion Gap 14 Estim Creat Clear Calc 82.7 Estimated GFR > 60 Random Glucose 150 H D Calcium 8.3 L D Troponin I High Sens COVID-19 ([facility]) COVID-19 Clin Com Imaging Radiologist's Impressions: Impressions Chest X-Ray 02/07/22 22:11 IMPRESSION: Chronic changes without acute cardiopulmonary process. Assessment and Plan (1) COPD exacerbation: Status: Acute Plan 58-year-old male with past medical history of COPD who presents to the hospital with complaints of shortness of breath cough and sputum production found to be in COPD exacerbation # acute COPD exacerbation - has dyspnea, cough, sputum production - has leukocytosis - afebrile - will treat with IV steroids, DuoNeb p.r.n. as well as scheduled - titrate oxygen down to O2 level of 89-92% given his extensive history of COPD # schizophrenia - will continue his home medications DVT prophylaxis: Lovenox Given the COPD exacerbation and need for IV steroids as well as schedule p.r.n. patient will require and minimal in 2 night hospital stay for further management Quality Stroke Does the patient have a stroke diagnosis?: No VTE Prior VTE?: No VTE Risk Level:: Medical - moderate - high VTE Device Contraindication: Treatment Not Indicated VTE Drug Contraindication: N/A - Med Ordered
[2022-02-08] MEDS: Enoxaparin Sodium 40 MG/0.4 ML SYRINGE SUBCUT (06:20)
[2022-02-08] MEDS: methylPREDNISolone Sod Succ 40 MG/ML VIAL IVPUSH ×2 (06:20→17:12)
[2022-02-08 06:30] LABS: Basophils Percent Auto 0.2 % (0-2); Hematocrit 39.8 % (42.0-52.0); Hemoglobin 13.6 g/dl (14.0-18.0); Imm Gran Abs Auto 0.06 X10*3/uL (0.00-0.03); Imm Gran Pct Auto 0.5 % (0.0-0.4); Lymphocytes Percent Auto 8.6 % (20-40); MANUAL DIFF FLAG SCAN; Mean Corpuscular HGB Conc 34.2 g/dl (31.0-36.0); Mean Corpuscular Hemoglobin 31.3 pg (27.0-33.0); Mean Corpuscular Volume 91.7 fL (80.0-98.0); Mean Platelet Volume 8.4 fL (9.4-12.4); Monocytes Absolute Auto 0.1 X10*3/uL (0.1-1.2); Monocytes Percent Auto 0.6 % (2-11); Neutrophils Absolute Auto 10.7 x10*3/uL (2.0-8.3); Neutrophils Percent Auto 90.1 % (45-73); Platelet Count 356 X10*3/uL (160-400); Red Blood Count 4.34 X10*6/uL (4.60-5.80); Red Cell Distribution Width 14.1 % (11.0-16.0); SCAN SMEAR FLAG 1; White Blood Count 11.8 X10*3/uL (4.8-10.8)
[2022-02-08 06:36] LABS: Anion Gap 11 (12-20); Blood Urea Nitrogen 6 mg/dL (9-16); Calcium 8.5 mg/dL (8.4-10.2); Carbon Dioxide 23 mmol/L (22-29); Chloride 106 mmol/L (96-108); Creatinine Clr Calc Pharmacy 82.7; Estimated Glomerular Filt Rate > 60; Glucose Random 160 mg/dL (60-115); Potassium 4.7 mmol/L (3.3-5.1); Sodium 135 mmol/L (135-145)
[2022-02-08] MEDS: Fluticasone Propionate Nasal 16 GM SPRAY 1 SPRAY NOSTRIL-B (06:47)
[2022-02-08 06:50] LABS: SLIDE REVIEW VERIFIED
[2022-02-08] MEDS: polyethylene glycoL 3350 17 GM POWD.PACK PO (09:28)
--- NOTE | 2022-02-08 09:53 | PHA.MEDREC ---
Pharmacy Consult ? Medication Reconciliation Pharmacy has completed the medication reconciliation. Received a list from [facility] of [facility]. Jose LoveD
--- NOTE | 2022-02-08 10:01 | MHC.CM.PN ---
PATIENT IS A RE-ADMIT AND FAMILIAR TO THIS MONITOR TECH HE USES INHALERS HCP ON FILE AND VERIFIED. HE IS COVID VACCINATED AT LEAST TWICE. HE IS CURRENTLY ASLEEP AND ON O2 VIA CANNULA. CASE MANAGEMENT FOLLOWING FOR DC PLANS. IMM FIRST ATTEMPT 02/08 IN CHART
[2022-02-08] MEDS: Albuterol/Iprat 2.5/0.5MG 3 ML AMPUL.NEB INHALE ×3 (10:20→19:16)
--- NOTE | 2022-02-08 13:35 | PC.NURSE ---
patient a&ox3, denies pain/discomfort at this time, 4L O2 nc, vss, call mcgraw within reach, will continue to monitor.
--- NOTE | 2022-02-08 16:19 | PC.NURSE ---
patient currently sleeping will hold off doing the ns flush until the steroids are due at 1745.
--- NOTE | 2022-02-08 17:41 | PM.EVENT ---
Event Note Date of Service: 02/08/22 Event Note: patient was admitted forCOPD exacerbation. physical exam: Unchanged from my H&P. assessment plan: Coordinated in H&P note continue nebs, steroids, oxygen will add p.o. antibiotics also- since patient has cough with yellow sputum.
--- NOTE | 2022-02-08 17:47 | PC.NURSE ---
Patient refuses to wear oxygen while ambulating to the bathroom,gets very short of breath,refuses skin assessment to buttocks and elah-rectal area,swears.
--- NOTE | 2022-02-08 17:52 | PC.NURSE ---
P patient cut himself while shaving on right side face,covered it with peace of paper towel I refused for nurse to remove paper towel and assess cut E will monitor,no bleeding at present,appear to be a very small cut
[2022-02-08] MEDS: Nicotine 21 MG PATCH.TD24 TRANSDERMA (18:00)
[2022-02-08] MEDS: Docusate Sodium 100 MG CAPSULE PO (21:38)
[2022-02-08] MEDS: 0.9 % Sodium Chloride Flush 3 ML SYRINGE IVFLUSH (23:35)
[2022-02-09] VITALS (10 sets, daily range): BP systolic 100–168; BP diastolic 48–76; PULSE 85–102; RESP 18–22; TEMP 36.2–37.4; O2SAT 94–100; BMI 17.7
[2022-02-09] MEDS: methylPREDNISolone Sod Succ 40 MG/ML VIAL IVPUSH ×2 (05:39→17:23)
[2022-02-09] MEDS: Enoxaparin Sodium 40 MG/0.4 ML SYRINGE SUBCUT (05:39)
[2022-02-09] MEDS: Albuterol/Iprat 2.5/0.5MG 3 ML AMPUL.NEB INHALE ×4 (08:05→22:35)
[2022-02-09] MEDS: polyethylene glycoL 3350 17 GM POWD.PACK PO (08:29)
[2022-02-09] MEDS: Loratadine 10 MG TABLET PO (08:29)
[2022-02-09] MEDS: Nicotine 21 MG PATCH.TD24 TRANSDERMA (08:29)
[2022-02-09] MEDS: 0.9 % Sodium Chloride Flush 3 ML SYRINGE IVFLUSH ×3 (08:30→23:52)
[2022-02-09] MEDS: guaiFENesin 100 MG/5 ML LIQUID PO ×2 (08:36→12:54)
--- NOTE | 2022-02-09 12:02 | P.PNIM_ITS ---
Subjective Subjective Date of Service: 02/09/22 Interval History: copd excerebation Review of Systems still sob ,talks in small /broken sentences denies any chest pain or abd pain or nausea or vomiting Physical Exam Vital Signs: Vital Signs: Last Vital Signs Temp 98.1 F 02/09/22 11:25 Pulse 94 02/09/22 11:25 Resp 18 02/09/22 11:25 BP 132/63 02/09/22 11:25 Pulse Ox 96 02/09/22 11:25 O2 Del Method 02/09/22 11:25 O2 Flow Rate 2 02/09/22 08:00 Oxygen Flow Rate 15 02/07/22 21:28 BMI result Body Mass Index 17.7 Appearance: Alert.? Oriented X3.? not in distress.? cvs: [id number], [id number] , no murmur res: air entry diminshed , b/l wheezing abd: no rebound or guarding ,nt, bs present. ext pulses present , no cyanosis . neuro: axo3 , nonfocal. Objective Data Active Medications Acetaminophen (Acetaminophen 325 Mg Tablet) 650 mg PO Q6H PRN PRN Reason: Pain, Mild (Pain Scale 1-3) Albuterol/Ipratropium (Albuterol/Iprat 2.5/0.5mg 3 Ml Ampul.Neb) 3 ml INHALE RQ4H PRN PRN Reason: Shortness of Breath/Wheezing Albuterol/Ipratropium (Albuterol/Iprat 2.5/0.5mg 3 Ml Ampul.Neb) 3 ml INHALE RQ4H WHILE AWAKE [facility] Last Admin: 02/09/22 08:05 Dose: 3 ml Documented By: VITO Docusate Sodium (Docusate Sodium 100 Mg Capsule) 100 mg PO DAILY PRN PRN Reason: Constipation Last Admin: 02/08/22 21:38 Dose: 100 mg Documented By: MAIK Doxycycline Hyclate (Doxycycline Hyclate 100 Mg Tablet) 100 mg PO Q12H [facility] Last Admin: 02/09/22 05:36 Dose: 100 mg Documented By: PIERO Enoxaparin Sodium (Enoxaparin Sodium 40 Mg/0.4 Ml Syringe) 40 mg SUBCUT Q24H [facility] Last Admin: 02/09/22 05:39 Dose: 40 mg Documented By: PIERO Guaifenesin (Guaifenesin 100 Mg/5 Ml Liquid) 5 ml PO Q4H PRN PRN Reason: Cough Last Admin: 02/09/22 08:36 Dose: 5 ml Documented By: WILLIS Loratadine (Loratadine 10 Mg Tablet) 10 mg PO DAILY [facility] Last Admin: 02/09/22 08:29 Dose: 10 mg Documented By: WILLIS Methylprednisolone Sodium Succinate (Methylprednisolone Sod Succ 40 Mg/Ml Vial) 40 mg IVPUSH Q12H [facility] Last Admin: 02/09/22 05:39 Dose: 40 mg Documented By: PIERO Nicotine (Nicotine 21 Mg Patch.Td24) 21 mg TRANSDERMA DAILY [facility] Last Admin: 02/09/22 08:29 Dose: 21 mg Documented By: WILLIS Ondansetron HCl (Ondansetron Hcl 4 Mg/2 Ml Vial) 4 mg IVPUSH Q8H PRN PRN Reason: Nausea and Vomiting Pharmacy Consult (Consult Rx Perform Med Rec) 1 each MISCELLANE ONCE PRN PRN Reason: Consult order Polyethylene Glycol (Polyethylene Glycol 3350 17 Gm Powd.Pack) 17 gm PO DAILY [facility] Last Admin: 02/09/22 08:29 Dose: 17 gm Documented By: WILLIS Sodium Chloride (0.9 % Sodium Chloride Flush 3 Ml Syringe) 3 ml IVFLUSH QSHIFT [facility] Last Admin: 02/09/22 08:30 Dose: 3 ml Documented By: WILLIS Labs CBC & Chem 7: 02/08/22 06:17 02/08/22 06:17 Assessment and Plan (1) Emphysema lung: Status: Acute (2) COPD exacerbation: Status: Acute Plan 58-year-old male with past medical history of COPD who presents to the hospital with complaints of shortness of breath cough and sputum production found to be in COPD exacerbation acute COPD exacerbation - has dyspnea, cough, sputum production - has leukocytosis - afebrile - will treat with IV steroids, DuoNeb p.r.n. as well as scheduled, antibiotics - titrate oxygen down to O2 level of 89-92% given his extensive history of COPD schizophrenia - will continue his home medications ?tobacco use disorder continue nicotine patch counseling done. DVT prophylaxis: Lovenox ? Need for inpatient:? COPD exacerbation- require nebs, steroids IV Quality Stroke Does the patient have a stroke diagnosis?: No VTE Prior VTE?: No VTE Risk Level:: Medical - moderate - high VTE Device Contraindication: Treatment Not Indicated VTE Drug Contraindication: N/A - Med Ordered
[2022-02-09] MEDS: Folic Acid 1 MG TABLET PO (13:49)
[2022-02-09] MEDS: hydrOXYzine HCL 10 MG TABLET PO (13:49)
[2022-02-09] MEDS: Tamsulosin HCL 0.4 MG CAPSULE PO (13:49)
[2022-02-09] MEDS: Megestrol Acetate 400 MG/10 ML ORAL.SUSP 200 MG PO ×2 (13:49→20:53)
[2022-02-09] MEDS: guaiFENesin LA 600 MG TAB.ER.12H PO ×2 (13:49→20:52)
[2022-02-09] MEDS: busPIRone HCl 5 MG TABLET 7.5 MG PO ×2 (13:49→20:52)
[2022-02-09] MEDS: Gabapentin 100 MG CAPSULE PO ×2 (13:49→20:52)
[2022-02-09] MEDS: Acamprosate Calcium 333 MG TABLET.DR PO ×2 (14:02→20:52)
[2022-02-09] MEDS: Benzonatate 100 MG CAPSULE PO (14:02)
--- NOTE | 2022-02-09 14:52 | MHC.CLN ---
NUTRITION PATIENT AGREED TO ENSURE TWO TIMES DAILY. ORDER ADDED FOR ENSURE BID (700 KCALS, 40 G PROTEIN).
--- NOTE | 2022-02-09 15:28 | MHC.CM.PN ---
EMR REVIEWED, PER HOSPITALIST PT NOT IMPORVING AND WILL REMAIN ON IV SOLU-MEDROL AND SCHEDULED AND PRN NEBULIZER TX'S, CM WILL CONT TO FOLLOW D/C NEEDS.
[2022-02-09] MEDS: Docusate Sodium 100 MG CAPSULE PO (15:59)
[2022-02-09] MEDS: OLANZapine 10 MG TABLET PO (20:52)
[2022-02-10] VITALS (8 sets, daily range): BP systolic 128–141; BP diastolic 59–63; PULSE 88–122; RESP 18–28; TEMP 37.1–38.1; O2SAT 96–100
[2022-02-10] MEDS: Enoxaparin Sodium 40 MG/0.4 ML SYRINGE SUBCUT (05:21)
[2022-02-10] MEDS: methylPREDNISolone Sod Succ 40 MG/ML VIAL IVPUSH ×2 (05:21→17:49)
[2022-02-10] MEDS: Albuterol/Iprat 2.5/0.5MG 3 ML AMPUL.NEB INHALE ×5 (05:47→19:54)
[2022-02-10] MEDS: Megestrol Acetate 400 MG/10 ML ORAL.SUSP 200 MG PO ×2 (09:13→21:12)
[2022-02-10] MEDS: polyethylene glycoL 3350 17 GM POWD.PACK PO (09:13)
[2022-02-10] MEDS: busPIRone HCl 5 MG TABLET 7.5 MG PO ×2 (09:13→21:13)
[2022-02-10] MEDS: Loratadine 10 MG TABLET PO (09:13)
[2022-02-10] MEDS: Tamsulosin HCL 0.4 MG CAPSULE PO (09:13)
[2022-02-10] MEDS: Gabapentin 100 MG CAPSULE PO ×2 (09:13→21:13)
[2022-02-10] MEDS: Folic Acid 1 MG TABLET PO (09:13)
[2022-02-10] MEDS: guaiFENesin 100 MG/5 ML LIQUID PO ×2 (09:13→15:44)
[2022-02-10] MEDS: Benzonatate 100 MG CAPSULE PO ×2 (09:13→15:44)
[2022-02-10] MEDS: Acamprosate Calcium 333 MG TABLET.DR PO ×3 (09:13→21:13)
[2022-02-10] MEDS: guaiFENesin LA 600 MG TAB.ER.12H PO ×2 (09:13→21:13)
[2022-02-10] MEDS: Nicotine 21 MG PATCH.TD24 TRANSDERMA (09:13)
[2022-02-10] MEDS: 0.9 % Sodium Chloride Flush 3 ML SYRINGE IVFLUSH ×3 (09:19→21:13)
--- NOTE | 2022-02-10 14:09 | HO.PM.IMPN ---
Subjective Subjective Date of Service: 02/10/22 Interval History: copd excerebation Review of Systems still sob ,talking little with sob denies any chest pain or abd pain or nausea or vomiting Physical Exam Vital Signs: Vital Signs: Last Vital Signs Temp 98.7 F 02/10/22 11:10 Pulse 118 H 02/10/22 11:29 Resp 20 02/10/22 11:29 BP 141/63 H 02/10/22 11:10 Pulse Ox 98 02/10/22 11:10 O2 Del Method 02/10/22 11:10 O2 Flow Rate 3 02/10/22 11:10 Oxygen Flow Rate 15 02/07/22 21:28 BMI result Body Mass Index 17.7 ?Appearance: Alert.? Oriented X3.? sob? cvs: rrr, [id number] , no murmur res: air entry diminshed , b/l wheezing abd: no rebound or guarding ,nt, bs present. ext pulses present , no cyanosis . neuro: axo3 , nonfocal. Objective Data Active Medications Acamprosate (Acamprosate Calcium 333 Mg Tablet.) 333 mg PO TID [facility] Last Admin: 02/10/22 09:13 Dose: 333 mg Documented By: TERE Acetaminophen (Acetaminophen 325 Mg Tablet) 650 mg PO Q6H PRN PRN Reason: Pain, Mild (Pain Scale 1-3) Albuterol/Ipratropium (Albuterol/Iprat 2.5/0.5mg 3 Ml Ampul.Neb) 3 ml INHALE RQ4H PRN PRN Reason: Shortness of Breath/Wheezing Last Admin: 02/10/22 05:47 Dose: 3 ml Documented By: HALLIE Albuterol/Ipratropium (Albuterol/Iprat 2.5/0.5mg 3 Ml Ampul.Neb) 3 ml INHALE RQ4H WHILE AWAKE [facility] Last Admin: 02/10/22 11:29 Dose: 3 ml Documented By: VITO Benzonatate (Benzonatate 100 Mg Capsule) 100 mg PO TID PRN PRN Reason: Cough Last Admin: 02/10/22 09:13 Dose: 100 mg Documented By: TERE Buspirone HCl (Buspirone Hcl 5 Mg Tablet) 7.5 mg PO BID [facility] Last Admin: 02/10/22 09:13 Dose: 7.5 mg Documented By: TERE Docusate Sodium (Docusate Sodium 100 Mg Capsule) 100 mg PO DAILY PRN PRN Reason: Constipation Last Admin: 02/09/22 15:59 Dose: 100 mg Documented By: MAIK Docusate Sodium (Docusate Sodium 100 Mg Capsule) 100 mg PO DAILY PRN PRN Reason: Constipation Doxycycline Hyclate (Doxycycline Hyclate 100 Mg Tablet) 100 mg PO Q12H [facility] Last Admin: 02/10/22 05:21 Dose: 100 mg Documented By: PIERO Enoxaparin Sodium (Enoxaparin Sodium 40 Mg/0.4 Ml Syringe) 40 mg SUBCUT Q24H [facility] Last Admin: 02/10/22 05:21 Dose: 40 mg Documented By: PIERO Folic Acid (Folic Acid 1 Mg Tablet) 1 mg PO DAILY [facility] Last Admin: 02/10/22 09:13 Dose: 1 mg Documented By: TERE Gabapentin (Gabapentin 100 Mg Capsule) 100 mg PO BID [facility] Last Admin: 02/10/22 09:13 Dose: 100 mg Documented By: TRINHEMA Guaifenesin (Guaifenesin 100 Mg/5 Ml Liquid) 5 ml PO Q4H PRN PRN Reason: Cough Last Admin: 02/10/22 09:13 Dose: 5 ml Documented By: TERE Guaifenesin (Guaifenesin La 600 Mg Tab.Er.12h) 600 mg PO BID [facility] Last Admin: 02/10/22 09:13 Dose: 600 mg Documented By: TERE Hydroxyzine HCl (Hydroxyzine Hcl 10 Mg Tablet) 10 mg PO Q24H PRN PRN Reason: Anxiety Last Admin: 02/09/22 13:49 Dose: 10 mg Documented By: WILLIS Loratadine (Loratadine 10 Mg Tablet) 10 mg PO DAILY [facility] Last Admin: 02/10/22 09:13 Dose: 10 mg Documented By: TERE Megestrol Acetate (Megestrol Acetate 400 Mg/10 Ml Oral.Susp) 200 mg PO BID [facility] Last Admin: 02/10/22 09:13 Dose: 200 mg Documented By: TERE Methylprednisolone Sodium Succinate (Methylprednisolone Sod Succ 40 Mg/Ml Vial) 40 mg IVPUSH Q12H [facility] Last Admin: 02/10/22 05:21 Dose: 40 mg Documented By: PIERO Nicotine (Nicotine 21 Mg Patch.Td24) 21 mg TRANSDERMA DAILY [facility] Last Admin: 02/10/22 09:13 Dose: 21 mg Documented By: TERE Olanzapine (Olanzapine 10 Mg Tablet) 10 mg PO BEDTIME [facility] Last Admin: 02/09/22 20:52 Dose: 10 mg Documented By: MAIK Ondansetron HCl (Ondansetron Hcl 4 Mg/2 Ml Vial) 4 mg IVPUSH Q8H PRN PRN Reason: Nausea and Vomiting Pharmacy Consult (Consult Rx Perform Med Rec) 1 each MISCELLANE ONCE PRN PRN Reason: Consult order Polyethylene Glycol (Polyethylene Glycol 3350 17 Gm Powd.Pack) 17 gm PO DAILY [facility] Last Admin: 02/10/22 09:13 Dose: 17 gm Documented By: TERE Psyllium Hydrophilic Mucilloid (Psyllium Seed 3.4 Gm Powd.Pack) 3.4 gm PO DAILY [facility] Last Admin: 02/10/22 09:13 Dose: 3.4 gm Documented By: TERE Sodium Chloride (0.9 % Sodium Chloride Flush 3 Ml Syringe) 3 ml IVFLUSH QSHIFT [facility] Last Admin: 02/10/22 09:19 Dose: 3 ml Documented By: TERE Tamsulosin HCl (Tamsulosin Hcl 0.4 Mg Capsule) 0.4 mg PO DAILY [facility] Last Admin: 02/10/22 09:13 Dose: 0.4 mg Documented By: TERE Tiotropium [place] (Tiotropium [place] 18 Mcg Cap.W.Dev) 1 puff INHALE RDAILY [facility] Last Admin: 02/10/22 09:15 Dose: Not Given Documented By: VITO Non-Admin Reason: Patient Refused Trazodone HCl (Trazodone Hcl 100 Mg Tablet) 100 mg PO BEDTIME PRN PRN Reason: Insomnia Labs CBC & Chem 7: 02/08/22 06:17 02/08/22 06:17 Assessment and Plan (1) COPD exacerbation: Status: Acute (2) Emphysema lung: Status: Acute Plan 58-year-old male with past medical history of COPD who presents to the hospital with complaints of shortness of breath cough and sputum production found to be in COPD exacerbation ?acute COPD exacerbation - has dyspnea, cough, sputum production - has leukocytosis - afebrile - will treat with IV steroids, DuoNeb p.r.n. as well as scheduled, antibiotics - titrate oxygen down to O2 level of 89-92% given his extensive history of COPD ?schizophrenia - will continue his home medications ?tobacco use disorder continue nicotine patch counseling done. DVT prophylaxis: Lovenox ? Need for inpatient:? COPD exacerbation- require nebs, steroids IV Quality Stroke Does the patient have a stroke diagnosis?: No VTE Prior VTE?: No VTE Risk Level:: Medical - moderate - high VTE Device Contraindication: Treatment Not Indicated VTE Drug Contraindication: N/A - Med Ordered
[2022-02-10] MEDS: Magnesium Sulfate/H2O 2 GM/50 ML PIGGYBACK IV (15:44)
[2022-02-10] MEDS: hydrOXYzine HCL 10 MG TABLET PO (15:44)
[2022-02-10] MEDS: OLANZapine 10 MG TABLET PO (21:13)
[2022-02-10] MEDS: Docusate Sodium 100 MG CAPSULE PO (21:27)
[2022-02-10] MEDS: traZODone HCL 100 MG TABLET PO (23:46)
[2022-02-11] VITALS (10 sets, daily range): BP systolic 122–157; BP diastolic 58–87; PULSE 93–118; RESP 18–24; TEMP 36.4–37.5; O2SAT 96–100
[2022-02-11] MEDS: Acetaminophen 325 MG TABLET 650 MG PO ×3 (00:31→16:03)
[2022-02-11] MEDS: Albuterol/Iprat 2.5/0.5MG 3 ML AMPUL.NEB INHALE ×4 (05:35→19:57)
[2022-02-11] MEDS: methylPREDNISolone Sod Succ 40 MG/ML VIAL IVPUSH ×2 (05:39→17:40)
--- NOTE | 2022-02-11 07:57 | HO.PM.IMPN ---
Subjective Subjective Date of Service: 02/12/22 Interval History: copd excerebation, anxious Review of Systems still sob -slightly better than yesterday denies any abd pain or nausea or vomiting Physical Exam Vital Signs: Vital Signs: Last Vital Signs Temp 98.4 F 02/11/22 00:00 Pulse 100 02/11/22 05:36 Resp 20 02/11/22 05:36 BP 157/72 H 02/11/22 00:00 Pulse Ox 98 02/11/22 00:00 O2 Del Method 02/11/22 00:00 O2 Flow Rate 3.0 02/10/22 19:10 Oxygen Flow Rate 15 02/07/22 21:28 BMI result Body Mass Index 17.7 ?Appearance: Alert.? Oriented X3.? sob? cvs: rrr, [id number] , no murmur res: air entry diminshed , b/l wheezing abd: no rebound or guarding ,nt, bs present. ext pulses present , no cyanosis . neuro: axo3 , nonfocal. Objective Data Active Medications Acamprosate (Acamprosate Calcium 333 Mg Tablet.) 333 mg PO TID [facility] Last Admin: 02/10/22 21:13 Dose: 333 mg Documented By: CHADWICK Acetaminophen (Acetaminophen 325 Mg Tablet) 650 mg PO Q6H PRN PRN Reason: Pain, Mild (Pain Scale 1-3) Last Admin: 02/11/22 00:31 Dose: 650 mg Documented By: CHADWICK Albuterol/Ipratropium (Albuterol/Iprat 2.5/0.5mg 3 Ml Ampul.Neb) 3 ml INHALE RQ4H PRN PRN Reason: Shortness of Breath/Wheezing Last Admin: 02/11/22 05:35 Dose: 3 ml Documented By: LIAM Albuterol/Ipratropium (Albuterol/Iprat 2.5/0.5mg 3 Ml Ampul.Neb) 3 ml INHALE RQ4H WHILE AWAKE [facility] Last Admin: 02/11/22 07:49 Dose: Not Given Documented By: RODRIGO Non-Admin Reason: pt had neb at 0530 Benzonatate (Benzonatate 100 Mg Capsule) 100 mg PO TID PRN PRN Reason: Cough Last Admin: 02/10/22 15:44 Dose: 100 mg Documented By: TERE Buspirone HCl (Buspirone Hcl 5 Mg Tablet) 7.5 mg PO BID [facility] Last Admin: 02/10/22 21:13 Dose: 7.5 mg Documented By: CHADWICK Docusate Sodium (Docusate Sodium 100 Mg Capsule) 100 mg PO DAILY PRN PRN Reason: Constipation Last Admin: 02/09/22 15:59 Dose: 100 mg Documented By: MAIK Docusate Sodium (Docusate Sodium 100 Mg Capsule) 100 mg PO DAILY PRN PRN Reason: Constipation Last Admin: 02/10/22 21:27 Dose: 100 mg Documented By: CHADWICK Doxycycline Hyclate (Doxycycline Hyclate 100 Mg Tablet) 100 mg PO Q12H [facility] Last Admin: 02/11/22 05:39 Dose: 100 mg Documented By: CHADWICK Enoxaparin Sodium (Enoxaparin Sodium 40 Mg/0.4 Ml Syringe) 40 mg SUBCUT Q24H [facility] Last Admin: 02/11/22 05:52 Dose: Not Given Documented By: CHADWICK Non-Admin Reason: Patient Refused Folic Acid (Folic Acid 1 Mg Tablet) 1 mg PO DAILY [facility] Last Admin: 02/10/22 09:13 Dose: 1 mg Documented By: TERE Gabapentin (Gabapentin 100 Mg Capsule) 100 mg PO BID [facility] Last Admin: 02/10/22 21:13 Dose: 100 mg Documented By: CHADWICK Guaifenesin (Guaifenesin 100 Mg/5 Ml Liquid) 5 ml PO Q4H PRN PRN Reason: Cough Last Admin: 02/10/22 15:44 Dose: 5 ml Documented By: TERE Guaifenesin (Guaifenesin La 600 Mg Tab.Er.12h) 600 mg PO BID [facility] Last Admin: 02/10/22 21:13 Dose: 600 mg Documented By: CHADWICK Hydroxyzine HCl (Hydroxyzine Hcl 10 Mg Tablet) 10 mg PO Q24H PRN PRN Reason: Anxiety Last Admin: 02/10/22 15:44 Dose: 10 mg Documented By: TERE Loratadine (Loratadine 10 Mg Tablet) 10 mg PO DAILY [facility] Last Admin: 02/10/22 09:13 Dose: 10 mg Documented By: TERE Megestrol Acetate (Megestrol Acetate 400 Mg/10 Ml Oral.Susp) 200 mg PO BID [facility] Last Admin: 02/10/22 21:12 Dose: 200 mg Documented By: CHADWICK Methylprednisolone Sodium Succinate (Methylprednisolone Sod Succ 40 Mg/Ml Vial) 40 mg IVPUSH Q12H [facility] Last Admin: 02/11/22 05:39 Dose: 40 mg Documented By: CHADWICK Nicotine (Nicotine 21 Mg Patch.Td24) 21 mg TRANSDERMA DAILY [facility] Last Admin: 02/10/22 09:13 Dose: 21 mg Documented By: TERE Olanzapine (Olanzapine 10 Mg Tablet) 10 mg PO BEDTIME [facility] Last Admin: 02/10/22 21:13 Dose: 10 mg Documented By: CHADWICK Ondansetron HCl (Ondansetron Hcl 4 Mg/2 Ml Vial) 4 mg IVPUSH Q8H PRN PRN Reason: Nausea and Vomiting Pharmacy Consult (Consult Rx Perform Med Rec) 1 each MISCELLANE ONCE PRN PRN Reason: Consult order Polyethylene Glycol (Polyethylene Glycol 3350 17 Gm Powd.Pack) 17 gm PO DAILY [facility] Last Admin: 02/10/22 09:13 Dose: 17 gm Documented By: TERE Psyllium Hydrophilic Mucilloid (Psyllium Seed 3.4 Gm Powd.Pack) 3.4 gm PO DAILY [facility] Last Admin: 02/10/22 09:13 Dose: 3.4 gm Documented By: TERE Sodium Chloride (0.9 % Sodium Chloride Flush 3 Ml Syringe) 3 ml IVFLUSH QSHIFT [facility] Last Admin: 02/10/22 21:13 Dose: 3 ml Documented By: CHADWICK Tamsulosin HCl (Tamsulosin Hcl 0.4 Mg Capsule) 0.4 mg PO DAILY [facility] Last Admin: 02/10/22 09:13 Dose: 0.4 mg Documented By: TERE Tiotropium [place] (Tiotropium [place] 18 Mcg Cap.W.Dev) 1 puff INHALE RDAILY [facility] Last Admin: 02/11/22 07:50 Dose: Not Given Documented By: RODRIGO Non-Admin Reason: Patient Refused Trazodone HCl (Trazodone Hcl 100 Mg Tablet) 100 mg PO BEDTIME PRN PRN Reason: Insomnia Last Admin: 02/10/22 23:46 Dose: 50 mg Documented By: HO.CROP Comments: per pt request Labs CBC & Chem 7: 02/08/22 06:17 02/08/22 06:17 Assessment and Plan (1) COPD exacerbation: Status: Acute Plan 58-year-old male with past medical history of COPD who presents to the hospital with complaints of shortness of breath cough and sputum production found to be in COPD exacerbation ?acute COPD exacerbation still sob , talking in short sentences mild oral thrush - has dyspnea, cough, sputum production - has leukocytosis - afebrile - will treat with IV steroids, DuoNeb p.r.n. as well as scheduled, antibiotics, added extra nebs /magnesium ,also added nystatin for oral thush give dose of xanax -anxiety component. - titrate oxygen down to O2 level of 89-92% given his extensive history of COPD ?schizophrenia - will continue his home medications ?tobacco use disorder continue nicotine patch counseling done. DVT prophylaxis: Lovenox ? Need for inpatient:? COPD exacerbation- require nebs, steroids IV Quality Stroke Does the patient have a stroke diagnosis?: No VTE Prior VTE?: No VTE Risk Level:: Medical - moderate - high VTE Device Contraindication: Treatment Not Indicated VTE Drug Contraindication: N/A - Med Ordered
[2022-02-11] MEDS: Megestrol Acetate 400 MG/10 ML ORAL.SUSP 200 MG PO ×2 (08:49→20:42)
[2022-02-11] MEDS: busPIRone HCl 5 MG TABLET 7.5 MG PO ×2 (08:49→20:44)
[2022-02-11] MEDS: guaiFENesin 100 MG/5 ML LIQUID PO ×2 (08:49→16:02)
[2022-02-11] MEDS: Gabapentin 100 MG CAPSULE PO ×2 (08:50→20:43)
[2022-02-11] MEDS: Tamsulosin HCL 0.4 MG CAPSULE PO (08:50)
[2022-02-11] MEDS: Nicotine 21 MG PATCH.TD24 TRANSDERMA (08:50)
[2022-02-11] MEDS: Benzonatate 100 MG CAPSULE PO ×2 (08:50→16:03)
[2022-02-11] MEDS: 0.9 % Sodium Chloride Flush 3 ML SYRINGE IVFLUSH ×3 (08:50→20:46)
[2022-02-11] MEDS: polyethylene glycoL 3350 17 GM POWD.PACK PO (08:50)
[2022-02-11] MEDS: Loratadine 10 MG TABLET PO (08:50)
[2022-02-11] MEDS: Acamprosate Calcium 333 MG TABLET.DR PO ×3 (08:50→20:43)
[2022-02-11] MEDS: Folic Acid 1 MG TABLET PO (08:50)
[2022-02-11] MEDS: guaiFENesin LA 600 MG TAB.ER.12H PO ×2 (08:50→20:43)
--- NOTE | 2022-02-11 10:55 | P.CDIC_ITS ---
CDI Concurrent Query Documentation Clarification: PHYSICIAN'S DOCUMENTATION REQUEST Date of Query: 02/11/22 1055 Patient Name: Joaquín Esparza Admit Date: 02/08/22 Dear Doctor, A review of the medical record indicates additional documentation may be needed. Please review below and update the documentation accordingly. Clinical Indicators: Height: [] 5'9 Weight: [] 54.6 kg BMI: [] 17.8 Other Clinical Notes Supporting Significance of the BMI: Risk Factors/Clinical Indicators/Treatments Clinical Nutrition Assessment 02/09/22: 90% or < DBW, Level III risk factor If possible, please provide an associated diagnosis related to the abnormal BMI, such as: For a BMI <= 19: * Underweight * Weight loss * Cachexia * Anorexia * Malnutrition (please specify severity, Mild, Moderate, Severe) Or: * BMI is not significant * Other (please specify) * Unable to determine Use of terms such as suspected, likely, concern for, or probable (associated with a specific diagnosis that is being evaluated, monitored, or treated as if it exists) are acceptable and can be coded in the inpatient setting, when documented at the time of discharge. Thank you, Becca Ely RN Extension: [phone] Please use your independent medical judgment in providing your response. THIS QUERY IS PART OF THE PERMANENT MEDICAL RECORD Provider Response: Other Other Diagnosis: malnutrition moderate .
--- NOTE | 2022-02-11 15:57 | MHC.CLN ---
NUTRITION CONSULT CONSULT FOR POSSIBLE MALNUTRITION. PER NUTRITION ASSESSMENT 02/09/22, PATIENT DOES NOT QUALIFY FOR NUTRITIONAL DX MALNUTRITION. ASSESSED UNDERWEIGHT. PATIENT ASKED ABOUT HIGH FIBER FOODS. LIKES OATMEAL AND AGREED TO HAVE EACH BREAKFAST. ADVISED KITCHEN. INTAKE VARIABLE, 25-100%. STATED THAT DRINKS 12 CUPS OF TEA PER DAY. CONTINUE REGULAR DIET, ENSURE BID. TAKES [employer]. FOLLOW FOR WEIGHTS AND INTAKE.
[2022-02-11] MEDS: hydrOXYzine HCL 10 MG TABLET PO (16:02)
[2022-02-11] MEDS: Docusate Sodium 100 MG CAPSULE PO (20:43)
[2022-02-11] MEDS: OLANZapine 10 MG TABLET PO (20:43)
[2022-02-12] VITALS (9 sets, daily range): BP systolic 128–162; BP diastolic 59–72; PULSE 86–116; RESP 18–22; TEMP 36.6–37.2; O2SAT 94–99
[2022-02-12] MEDS: Albuterol/Iprat 2.5/0.5MG 3 ML AMPUL.NEB INHALE ×4 (02:56→20:33)
[2022-02-12] MEDS: methylPREDNISolone Sod Succ 40 MG/ML VIAL IVPUSH ×2 (05:34→17:08)
[2022-02-12] MEDS: guaiFENesin 100 MG/5 ML LIQUID PO (08:51)
[2022-02-12] MEDS: Megestrol Acetate 400 MG/10 ML ORAL.SUSP 200 MG PO ×2 (08:51→20:32)
[2022-02-12] MEDS: Nicotine 21 MG PATCH.TD24 TRANSDERMA (08:51)
[2022-02-12] MEDS: guaiFENesin LA 600 MG TAB.ER.12H PO ×2 (08:52→20:32)
[2022-02-12] MEDS: Loratadine 10 MG TABLET PO (08:52)
[2022-02-12] MEDS: Acamprosate Calcium 333 MG TABLET.DR PO ×3 (08:52→20:32)
[2022-02-12] MEDS: busPIRone HCl 5 MG TABLET 7.5 MG PO ×2 (08:52→20:32)
[2022-02-12] MEDS: Folic Acid 1 MG TABLET PO (08:52)
[2022-02-12] MEDS: Gabapentin 100 MG CAPSULE PO ×2 (08:52→20:32)
[2022-02-12] MEDS: Tamsulosin HCL 0.4 MG CAPSULE PO (08:52)
[2022-02-12] MEDS: polyethylene glycoL 3350 17 GM POWD.PACK PO (08:52)
[2022-02-12] MEDS: Benzonatate 100 MG CAPSULE PO ×2 (08:52→14:36)
[2022-02-12] MEDS: 0.9 % Sodium Chloride Flush 3 ML SYRINGE IVFLUSH ×2 (08:52→20:33)
[2022-02-12] MEDS: Magnesium Sulfate/H2O 2 GM/50 ML PIGGYBACK IV (10:39)
[2022-02-12] MEDS: ALPRAZolam 0.5 MG TABLET PO (10:39)
[2022-02-12] MEDS: guaiFEN/Codeine SF 200/20/10ML 10 ML LIQUID 5 ML PO ×4 (10:39→20:36)
[2022-02-12] MEDS: Nystatin Oral Susp 500,000 UNIT/5 ML ORAL.SUSP 500000 UNIT PO ×3 (14:35→20:32)
[2022-02-12] MEDS: OLANZapine 10 MG TABLET PO (20:32)
[2022-02-12] MEDS: traZODone HCL 100 MG TABLET PO (20:32)
[2022-02-13] VITALS (9 sets, daily range): BP systolic 123–146; BP diastolic 58–64; PULSE 99–122; RESP 16–20; TEMP 36.8–37.7; O2SAT 93–100
[2022-02-13] MEDS: guaiFEN/Codeine SF 200/20/10ML 10 ML LIQUID 5 ML PO ×6 (01:48→21:13)
[2022-02-13] MEDS: Albuterol/Iprat 2.5/0.5MG 3 ML AMPUL.NEB INHALE ×4 (06:08→20:00)
[2022-02-13] MEDS: methylPREDNISolone Sod Succ 40 MG/ML VIAL IVPUSH ×3 (06:13→21:14)
[2022-02-13] MEDS: Megestrol Acetate 400 MG/10 ML ORAL.SUSP 200 MG PO ×2 (10:48→21:13)
[2022-02-13] MEDS: Nystatin Oral Susp 500,000 UNIT/5 ML ORAL.SUSP 500000 UNIT PO ×3 (10:48→21:47)
[2022-02-13] MEDS: polyethylene glycoL 3350 17 GM POWD.PACK PO (10:49)
[2022-02-13] MEDS: busPIRone HCl 5 MG TABLET 7.5 MG PO ×2 (10:49→21:14)
[2022-02-13] MEDS: Acamprosate Calcium 333 MG TABLET.DR PO ×3 (10:49→21:14)
[2022-02-13] MEDS: Nicotine 21 MG PATCH.TD24 TRANSDERMA (10:49)
[2022-02-13] MEDS: Gabapentin 100 MG CAPSULE PO ×2 (10:49→21:14)
[2022-02-13] MEDS: Docusate Sodium 100 MG CAPSULE PO (10:49)
[2022-02-13] MEDS: guaiFENesin LA 600 MG TAB.ER.12H PO ×2 (10:50→21:14)
[2022-02-13] MEDS: Benzonatate 100 MG CAPSULE PO ×2 (10:50→16:04)
[2022-02-13] MEDS: Loratadine 10 MG TABLET PO (10:50)
[2022-02-13] MEDS: Tamsulosin HCL 0.4 MG CAPSULE PO (10:50)
[2022-02-13] MEDS: 0.9 % Sodium Chloride Flush 3 ML SYRINGE IVFLUSH ×3 (10:50→21:14)
[2022-02-13] MEDS: Folic Acid 1 MG TABLET PO (10:50)
[2022-02-13] MEDS: Magnesium Sulfate/D5W 1 GM/100 ML PIGGYBACK IV (10:50)
--- NOTE | 2022-02-13 11:21 | HO.PM.IMPN ---
Subjective Subjective Date of Service: 02/13/22 Interval History: COPD exacerbation Review of Systems patient still wheezing, still talks in short sentences short of breath with minimal exertion denies any chest pain or nausea or vomiting or abdominal pain. Physical Exam Vital Signs: Vital Signs: Last Vital Signs Temp 98.6 F 02/13/22 07:09 Pulse 99 02/13/22 07:09 Resp 16 02/13/22 07:09 BP 142/64 H 02/13/22 07:09 Pulse Ox 100 02/13/22 07:09 O2 Del Method 02/13/22 07:09 O2 Flow Rate 3 02/13/22 07:09 Oxygen Flow Rate 15 02/07/22 21:28 BMI result Body Mass Index 17.7 ?Appearance: Alert.? Oriented X3.? sob? cvs: rrr, [id number] , no murmur res: air entry diminshed , b/l wheezing abd: no rebound or guarding ,nt, bs present. ext pulses present , no cyanosis . neuro: axo3 , nonfocal. Objective Data Active Medications Acamprosate (Acamprosate Calcium 333 Mg Tablet.) 333 mg PO TID [facility] Last Admin: 02/13/22 10:49 Dose: 333 mg Documented By: TERE Acetaminophen (Acetaminophen 325 Mg Tablet) 650 mg PO Q6H PRN PRN Reason: Pain, Mild (Pain Scale 1-3) Last Admin: 02/11/22 16:03 Dose: 650 mg Documented By: TERE Albuterol/Ipratropium (Albuterol/Iprat 2.5/0.5mg 3 Ml Ampul.Neb) 3 ml INHALE RQ4H PRN PRN Reason: Shortness of Breath/Wheezing Last Admin: 02/12/22 02:56 Dose: 3 ml Documented By: DONALDO Albuterol/Ipratropium (Albuterol/Iprat 2.5/0.5mg 3 Ml Ampul.Neb) 3 ml INHALE RQ4H WHILE AWAKE [facility] Last Admin: 02/13/22 06:08 Dose: 3 ml Documented By: GEO Benzonatate (Benzonatate 100 Mg Capsule) 100 mg PO TID PRN PRN Reason: Cough Last Admin: 02/13/22 10:50 Dose: 100 mg Documented By: TERE Buspirone HCl (Buspirone Hcl 5 Mg Tablet) 7.5 mg PO BID [facility] Last Admin: 02/13/22 10:49 Dose: 7.5 mg Documented By: COTEMA Docusate Sodium (Docusate Sodium 100 Mg Capsule) 100 mg PO DAILY PRN PRN Reason: Constipation Last Admin: 02/13/22 10:49 Dose: 100 mg Documented By: COTEMA Docusate Sodium (Docusate Sodium 100 Mg Capsule) 100 mg PO DAILY PRN PRN Reason: Constipation Last Admin: 02/10/22 21:27 Dose: 100 mg Documented By: CHADWICK Doxycycline Hyclate (Doxycycline Hyclate 100 Mg Tablet) 100 mg PO Q12H [facility] Last Admin: 02/13/22 06:13 Dose: 100 mg Documented By: GIAN Enoxaparin Sodium (Enoxaparin Sodium 40 Mg/0.4 Ml Syringe) 40 mg SUBCUT Q24H [facility] Last Admin: 02/13/22 06:09 Dose: Not Given Documented By: GIAN Non-Admin Reason: Patient Refused Folic Acid (Folic Acid 1 Mg Tablet) 1 mg PO DAILY [facility] Last Admin: 02/13/22 10:50 Dose: 1 mg Documented By: COTEMA Gabapentin (Gabapentin 100 Mg Capsule) 100 mg PO BID [facility] Last Admin: 02/13/22 10:49 Dose: 100 mg Documented By: TRINHEMA Guaifenesin (Guaifenesin 100 Mg/5 Ml Liquid) 5 ml PO Q4H PRN PRN Reason: Cough Last Admin: 02/12/22 08:51 Dose: 5 ml Documented By: COTEMA Guaifenesin (Guaifenesin [place] 600 Mg Tab.Er.12h) 600 mg PO BID [facility] Last Admin: 02/13/22 10:50 Dose: 600 mg Documented By: COTEMA Guaifenesin/Codeine Phosphate (Guaifen/Codeine Sf 200/20/10ml 10 Ml Liquid) 5 ml PO Q4H [facility] Last Admin: 02/13/22 10:48 Dose: 5 ml Documented By: COTEMA Hydroxyzine HCl (Hydroxyzine Hcl 10 Mg Tablet) 10 mg PO Q24H PRN PRN Reason: Anxiety Last Admin: 02/11/22 16:02 Dose: 10 mg Documented By: TERE Loratadine (Loratadine 10 Mg Tablet) 10 mg PO DAILY [facility] Last Admin: 02/13/22 10:50 Dose: 10 mg Documented By: TERE Loratadine (Loratadine 10 Mg Tablet) 10 mg PO DAILY [facility] Last Admin: 02/13/22 10:42 Dose: Not Given Documented By: TERE Non-Admin Reason: Duplicate Order Megestrol Acetate (Megestrol Acetate 400 Mg/10 Ml Oral.Susp) 200 mg PO BID [facility] Last Admin: 02/13/22 10:48 Dose: 200 mg Documented By: TERE Methylprednisolone Sodium Succinate (Methylprednisolone Sod Succ 40 Mg/Ml Vial) 40 mg IVPUSH Q12H [facility] Last Admin: 02/13/22 06:13 Dose: 40 mg Documented By: GIAN Nicotine (Nicotine 21 Mg Patch.Td24) 21 mg TRANSDERMA DAILY [facility] Last Admin: 02/13/22 10:49 Dose: 21 mg Documented By: TERE Nystatin (Nystatin Oral Susp 500,000 Unit/5 Ml Oral.Susp) 500,000 unit PO QID [facility]; Protocol Last Admin: 02/13/22 10:48 Dose: 500,000 unit Documented By: TERE Olanzapine (Olanzapine 10 Mg Tablet) 10 mg PO BEDTIME [facility] Last Admin: 02/12/22 20:32 Dose: 10 mg Documented By: GIAN Ondansetron HCl (Ondansetron Hcl 4 Mg/2 Ml Vial) 4 mg IVPUSH Q8H PRN PRN Reason: Nausea and Vomiting Pharmacy Consult (Consult Rx Perform Med Rec) 1 each MISCELLANE ONCE PRN PRN Reason: Consult order Polyethylene Glycol (Polyethylene Glycol 3350 17 Gm Powd.Pack) 17 gm PO DAILY [facility] Last Admin: 02/13/22 10:49 Dose: 17 gm Documented By: TERE Psyllium Hydrophilic Mucilloid (Psyllium Seed 3.4 Gm Powd.Pack) 3.4 gm PO DAILY [facility] Last Admin: 02/13/22 10:49 Dose: 3.4 gm Documented By: TERE Sodium Chloride (0.9 % Sodium Chloride Flush 3 Ml Syringe) 3 ml IVFLUSH QSHIFT [facility] Last Admin: 02/13/22 10:50 Dose: 3 ml Documented By: TERE Tamsulosin HCl (Tamsulosin Hcl 0.4 Mg Capsule) 0.4 mg PO DAILY [facility] Last Admin: 02/13/22 10:50 Dose: 0.4 mg Documented By: TERE Tiotropium [place] (Tiotropium [place] 18 Mcg Cap.W.Dev) 1 puff INHALE RDAILY [facility] Last Admin: 02/13/22 08:02 Dose: Not Given Documented By: ULRICC Non-Admin Reason: Patient Refused Trazodone HCl (Trazodone Hcl 100 Mg Tablet) 100 mg PO BEDTIME PRN PRN Reason: Insomnia Last Admin: 02/12/22 20:32 Dose: 100 mg Documented By: JAMESQC Labs CBC & Chem 7: 02/08/22 06:17 02/08/22 06:17 Assessment and Plan (1) Emphysema lung: Status: Acute (2) COPD exacerbation: Status: Acute Plan 58-year-old male with past medical history of COPD who presents to the hospital with complaints of shortness of breath cough and sputum production found to be in COPD exacerbation ?acute COPD exacerbation still sob , talking in short sentences mild oral? thrush - has dyspnea, cough, sputum production - has leukocytosis improving,afebrile adjusted IV steroids, DuoNeb p.r.n. as well as scheduled, antibiotics, also added nystatin for oral thush,added extra nebs /magnesium , cxr -seems fine today vbg and pulm eval added - titrate oxygen down to O2 level of 89-92% given his extensive history of COPD ?schizophrenia - will continue his home medications ?tobacco use disorder continue nicotine patch counseling done. DVT prophylaxis: Lovenox ? Need for inpatient:? COPD exacerbation- require nebs, steroids IV Quality Stroke Does the patient have a stroke diagnosis?: No VTE Prior VTE?: No VTE Risk Level:: Medical - moderate - high VTE Device Contraindication: Treatment Not Indicated VTE Drug Contraindication: N/A - Med Ordered
[2022-02-13 12:05] LABS: Venous Blood Gas Refer to POC result
[2022-02-13 12:06] LABS: VBG Base Excess -1.7 mmol/L; VBG HCO3 21 mmol/L (22-26); VBG pCO2 29 mmHg; VBG pH 7.45 (7.32-7.43); VBG pO2 126 mmHg
[2022-02-13] MEDS: ALPRAZolam 0.5 MG TABLET PO (16:04)
[2022-02-13] MEDS: OLANZapine 10 MG TABLET PO (21:14)
[2022-02-14] VITALS (11 sets, daily range): BP systolic 118–163; BP diastolic 51–73; PULSE 88–112; RESP 17–22; TEMP 36.6–37.4; O2SAT 91–99
[2022-02-14] MEDS: Albuterol/Iprat 2.5/0.5MG 3 ML AMPUL.NEB INHALE ×5 (00:54→23:35)
[2022-02-14] MEDS: guaiFEN/Codeine SF 200/20/10ML 10 ML LIQUID 5 ML PO ×5 (05:47→20:52)
[2022-02-14] MEDS: Tamsulosin HCL 0.4 MG CAPSULE PO (07:30)
[2022-02-14] MEDS: Nystatin Oral Susp 500,000 UNIT/5 ML ORAL.SUSP 500000 UNIT PO ×4 (07:30→20:51)
[2022-02-14] MEDS: methylPREDNISolone Sod Succ 40 MG/ML VIAL IVPUSH ×2 (07:30→20:51)
[2022-02-14] MEDS: Loratadine 10 MG TABLET PO (07:30)
[2022-02-14] MEDS: guaiFENesin LA 600 MG TAB.ER.12H PO ×2 (07:30→20:51)
[2022-02-14] MEDS: Nicotine 21 MG PATCH.TD24 TRANSDERMA (07:30)
[2022-02-14] MEDS: Acamprosate Calcium 333 MG TABLET.DR PO ×3 (07:31→20:51)
[2022-02-14] MEDS: polyethylene glycoL 3350 17 GM POWD.PACK PO (07:31)
[2022-02-14] MEDS: Gabapentin 100 MG CAPSULE PO ×2 (07:31→20:51)
[2022-02-14] MEDS: Folic Acid 1 MG TABLET PO (07:31)
[2022-02-14] MEDS: busPIRone HCl 5 MG TABLET 7.5 MG PO ×2 (07:32→20:51)
[2022-02-14] MEDS: 0.9 % Sodium Chloride Flush 3 ML SYRINGE IVFLUSH ×3 (07:32→20:52)
[2022-02-14] MEDS: Megestrol Acetate 400 MG/10 ML ORAL.SUSP 200 MG PO ×2 (07:33→20:52)
--- NOTE | 2022-02-14 09:37 | P.CONPL_ITS ---
History of Present Illness History of Present Illness Consult date: 02/14/22 Requesting physician: Lukasz Herman Reason for consult: cough, COPD and hypoxemia Chief complaint: COPD Exacerbation PMFSH Past Medical History Medical History COPD (chronic obstructive pulmonary disease) COPD (chronic obstructive pulmonary disease) Pneumonia Pneumothorax Schizophrenia Umbilical hernia Family History Family History (Updated 02/08/22 @ 05:49 by Adolph Flores MD) Father CAD (coronary artery disease) Surgical History Surgical History No pertinent past surgical history Social History Social History Household Members: Other 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 Housing: Other Housing Other:: patient states he lives in the hotel Do you presently have visiting nurse or other home services: Yes Alcohol intake: current Alcohol intake frequency: a few times a month Alcohol type: beer Patient Tobacco Use Status: Current everyday Tobacco user Tobacco use type: Cigarette Cigarette Packs Per Day: 1 Cigarettes Per Day: 20.0 Second Hand Smoke Exposure: No Advance Directives Date on File: 03/22/21 service: No Current occupational status: retired 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 [employer] Allergies Allergy/AdvReac Type Severity Reaction Status Date / Time tree and shrub pollen Allergy Mild Rash Verified 10/28/21 06:48 Active Medications: Current Medications Acamprosate (Acamprosate Calcium 333 Mg Tablet.) 333 mg PO TID [facility] Last Admin: 02/14/22 07:31 Dose: 333 mg Acetaminophen (Acetaminophen 325 Mg Tablet) 650 mg PO Q6H PRN PRN Reason: Pain, Mild (Pain Scale 1-3) Last Admin: 02/11/22 16:03 Dose: 650 mg Albuterol/Ipratropium (Albuterol/Iprat 2.5/0.5mg 3 Ml Ampul.Neb) 3 ml INHALE RQ4H PRN PRN Reason: Shortness of Breath/Wheezing Last Admin: 02/14/22 00:54 Dose: 3 ml Albuterol/Ipratropium (Albuterol/Iprat 2.5/0.5mg 3 Ml Ampul.Neb) 3 ml INHALE RQ4H WHILE AWAKE [facility] Last Admin: 02/14/22 08:11 Dose: 3 ml Benzonatate (Benzonatate 100 Mg Capsule) 100 mg PO TID PRN PRN Reason: Cough Last Admin: 02/13/22 16:04 Dose: 100 mg Buspirone HCl (Buspirone Hcl 5 Mg Tablet) 7.5 mg PO BID [facility] Last Admin: 02/14/22 07:32 Dose: 7.5 mg Docusate Sodium (Docusate Sodium 100 Mg Capsule) 100 mg PO DAILY PRN PRN Reason: Constipation Last Admin: 02/13/22 10:49 Dose: 100 mg Docusate Sodium (Docusate Sodium 100 Mg Capsule) 100 mg PO DAILY PRN PRN Reason: Constipation Last Admin: 02/10/22 21:27 Dose: 100 mg Doxycycline Hyclate (Doxycycline Hyclate 100 Mg Tablet) 100 mg PO Q12H [facility] Last Admin: 02/14/22 05:47 Dose: 100 mg Enoxaparin Sodium (Enoxaparin Sodium 40 Mg/0.4 Ml Syringe) 40 mg SUBCUT Q24H [facility] Last Admin: 02/14/22 06:35 Dose: Not Given Folic Acid (Folic Acid 1 Mg Tablet) 1 mg PO DAILY [facility] Last Admin: 02/14/22 07:31 Dose: 1 mg Gabapentin (Gabapentin 100 Mg Capsule) 100 mg PO BID [facility] Last Admin: 02/14/22 07:31 Dose: 100 mg Guaifenesin (Guaifenesin 100 Mg/5 Ml Liquid) 5 ml PO Q4H PRN PRN Reason: Cough Last Admin: 02/12/22 08:51 Dose: 5 ml Guaifenesin (Guaifenesin [place] 600 Mg Tab.Er.12h) 600 mg PO BID [facility] Last Admin: 02/14/22 07:30 Dose: 600 mg Guaifenesin/Codeine Phosphate (Guaifen/Codeine Sf 200/20/10ml 10 Ml Liquid) 5 ml PO Q4H [facility] Last Admin: 02/14/22 05:47 Dose: 5 ml Hydroxyzine HCl (Hydroxyzine Hcl 10 Mg Tablet) 10 mg PO Q24H PRN PRN Reason: Anxiety Last Admin: 02/11/22 16:02 Dose: 10 mg Loratadine (Loratadine 10 Mg Tablet) 10 mg PO DAILY [facility] Last Admin: 02/14/22 07:30 Dose: 10 mg Loratadine (Loratadine 10 Mg Tablet) 10 mg PO DAILY [facility] Last Admin: 02/14/22 07:32 Dose: Not Given Megestrol Acetate (Megestrol Acetate 400 Mg/10 Ml Oral.Susp) 200 mg PO BID [facility] Last Admin: 02/14/22 07:33 Dose: 200 mg Methylprednisolone Sodium Succinate (Methylprednisolone Sod Succ 40 Mg/Ml Vial) 40 mg IVPUSH BID [facility] Nicotine (Nicotine 21 Mg Patch.Td24) 21 mg TRANSDERMA DAILY [facility] Last Admin: 02/14/22 07:30 Dose: 21 mg Nystatin (Nystatin Oral Susp 500,000 Unit/5 Ml Oral.Susp) 500,000 unit PO QID [facility]; Protocol Last Admin: 02/14/22 07:30 Dose: 500,000 unit Olanzapine (Olanzapine 10 Mg Tablet) 10 mg PO BEDTIME [facility] Last Admin: 02/13/22 21:14 Dose: 10 mg Ondansetron HCl (Ondansetron Hcl 4 Mg/2 Ml Vial) 4 mg IVPUSH Q8H PRN PRN Reason: Nausea and Vomiting Pharmacy Consult (Consult Rx Perform Med Rec) 1 each MISCELLANE ONCE PRN PRN Reason: Consult order Polyethylene Glycol (Polyethylene Glycol 3350 17 Gm Powd.Pack) 17 gm PO DAILY [facility] Last Admin: 02/14/22 07:31 Dose: 17 gm Psyllium Hydrophilic Mucilloid (Psyllium Seed 3.4 Gm Powd.Pack) 3.4 gm PO DAILY [facility] Last Admin: 02/14/22 07:31 Dose: 3.4 gm Sodium Chloride (0.9 % Sodium Chloride Flush 3 Ml Syringe) 3 ml IVFLUSH QSHIFT [facility] Last Admin: 02/14/22 07:32 Dose: 3 ml Tamsulosin HCl (Tamsulosin Hcl 0.4 Mg Capsule) 0.4 mg PO DAILY [facility] Last Admin: 02/14/22 07:30 Dose: 0.4 mg Tiotropium [place] (Tiotropium [place] 18 Mcg Cap.W.Dev) 1 puff INHALE RDAILY [facility] Last Admin: 02/14/22 08:13 Dose: 1 puff Trazodone HCl (Trazodone Hcl 100 Mg Tablet) 100 mg PO BEDTIME PRN PRN Reason: Insomnia Last Admin: 02/12/22 20:32 Dose: 100 mg Home Medications Medication Instructions Recorded Confirmed Last Taken Type acamprosate 333 mg tablet,delayed 333 mg PO TID 01/25/22 02/08/22 Unknown Hist ory release acetaminophen 300 mg-codeine 30 mg 1 tab PO BID PRN Pain 01/25/22 02/08/22 Unkno wn History tablet albuterol sulfate 90 mcg/actuation 2 puff inhalation Q4-6H PRN 01/25/22 02/08/22 Unknown History aerosol inhaler Wheezing benzonatate 100 mg capsule 100 mg PO TID PRN Cough 01/25/22 02/08/22 Unknown History buspirone 7.5 mg tablet 7.5 mg PO BID 01/25/22 02/08/22 Unknown History docusate sodium 100 mg capsule 100 mg PO DAILY PRN Constipation 01/25/22 02/08/22 Unknown History fluticasone 500 mcg-salmeterol 50 1 inh inhalation BID 01/25/22 02/08/22 Unknown History mcg/dose blistr powdr for inhalation (Advair Diskus) folic acid 1 mg tablet 1 mg PO DAILY 01/25/22 02/08/22 Unknown History gabapentin 100 mg capsule 100 mg PO BID 01/25/22 02/08/22 Unknown History guaifenesin 600 mg tablet, 600 mg PO BID 01/25/22 02/08/22 Unknown History extended release 12 hr hydroxyzine HCl 10 mg tablet 10 mg PO Q24H PRN Anxiety 01/25/22 02/08/22 Unknown History megestrol 400 mg/10 mL (10 mL) 200 mg PO BID 01/25/22 02/08/22 Unknown History oral suspension olanzapine 10 mg tablet 10 mg PO BEDTIME 01/25/22 02/08/22 Unknown History psyllium 1 tbsp PO DAILY 01/25/22 02/08/22 Unknown History tamsulosin 0.4 mg capsule 0.4 mg PO DAILY 01/25/22 02/08/22 Unknown History tiotropium bromide 2.5 2 puff inhalation DAILY 01/25/22 02/08/22 Unknown History mcg/actuation mist for inhalation trazodone 100 mg tablet 100 mg PO BEDTIME PRN Insomnia 01/25/22 02/08/22 Unknown History Physical Exam Vital Signs: Vital Signs: Last Vital Signs Temp 99.4 F 02/14/22 07:48 Pulse 88 02/14/22 08:13 Resp 22 H 02/14/22 08:13 BP 118/73 02/14/22 07:48 Pulse Ox 98 02/14/22 07:48 O2 Del Method 02/14/22 07:48 O2 Flow Rate 2 02/14/22 07:48 Oxygen Flow Rate 15 02/07/22 21:28 BMI result Body Mass Index 17.7 Results Laboratory Findings CBC and BMP: 02/08/22 06:17 02/08/22 06:17 Abnormal lab findings: Abnormal Labs 02/07/22 02/08/22 02/08/22 21:52 03:44 03:47 WBC 15.2 H RBC 4.41 L Hgb 13.8 L Hct 40.9 L MPV 8.5 L Immature Gran % (Auto) Neut % (Auto) Lymph % (Auto) 19.7 L [place] % (Auto) Lymph # (Auto) Eos # (Auto) 0.5 H Abs Immat Gran (auto) 0.06 H Absolute Neuts (auto) 10.7 H VBG pH VBG HCO3 19 L Carbon Dioxide 21 L Anion Gap BUN 6 L Random Glucose 150 H D Calcium 8.3 L D 02/08/22 02/08/22 02/13/22 06:17 06:17 12:01 WBC 11.8 H RBC 4.34 L Hgb 13.6 L Hct 39.8 L MPV 8.4 L Immature Gran % (Auto) 0.5 H Neut % (Auto) 90.1 H Lymph % (Auto) 8.6 L [place] % (Auto) 0.6 L Lymph # (Auto) 1.0 L Eos # (Auto) Abs Immat Gran (auto) 0.06 H Absolute Neuts (auto) 10.7 H VBG pH 7.45 H VBG HCO3 21 L Carbon Dioxide Anion Gap 11 L BUN 6 L Random Glucose 160 H Calcium
--- NOTE | 2022-02-14 09:39 | P.CONPL_ITS ---
History of Present Illness History of Present Illness Consult date: 02/14/22 Requesting physician: Lukasz Herman Reason for consult: dyspnea, cough, COPD and hypoxemia Chief complaint: COPD Exacerbation Narrative: 66 Years old gentleman , a well known case of advanced chronic obstructive pulmonary disease, Who was admitted the from 01/24 to 01/27, and treated for acute exacerbation of COPD, Now he has been readmitted since 02/08 with increased sputum production, yellowish in color, feeling cold and chilly, but no definite fever. Also noted to be. Hypoxemic requiring O2 supplementation. He is being treated with IV Solu-Medrol as well as says ceftriaxone, oxygen , DuoNeb updrafts , and his progress the has been somewhat slow. His cough is better, he still remains weak and still on O2 3 L/minutes. Patient is a case of chronic schizophrenic disorder and not conversing very clearly . He does deny any distress. [facility] is reviewed, and he has history of smoking 1 pack of cigarettes a day as well as history of alcohol abuse. 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 Housing: Other Housing Other:: patient states he lives in the hotel Do you presently have visiting nurse or other home services: Yes Alcohol intake: current Alcohol intake frequency: a few times a month Alcohol type: beer Patient Tobacco Use Status: Current everyday Tobacco user Tobacco use type: Cigarette Cigarette Packs Per Day: 1 Cigarettes Per Day: 20.0 Second Hand Smoke Exposure: No Advance Directives Date on File: 03/22/21 service: No Current occupational status: 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 Meds Allergies Allergy/AdvReac Type Severity Reaction Status Date / Time tree and shrub pollen Allergy Mild Rash Verified 10/28/21 06:48 Active Medications: Current Medications Acamprosate (Acamprosate Calcium 333 Mg Tablet.) 333 mg PO TID [facility] Last Admin: 02/14/22 07:31 Dose: 333 mg Acetaminophen (Acetaminophen 325 Mg Tablet) 650 mg PO Q6H PRN PRN Reason: Pain, Mild (Pain Scale 1-3) Last Admin: 02/11/22 16:03 Dose: 650 mg Albuterol/Ipratropium (Albuterol/Iprat 2.5/0.5mg 3 Ml Ampul.Neb) 3 ml INHALE RQ4H PRN PRN Reason: Shortness of Breath/Wheezing Last Admin: 02/14/22 00:54 Dose: 3 ml Albuterol/Ipratropium (Albuterol/Iprat 2.5/0.5mg 3 Ml Ampul.Neb) 3 ml INHALE RQ4H WHILE AWAKE [facility] Last Admin: 02/14/22 08:11 Dose: 3 ml Benzonatate (Benzonatate 100 Mg Capsule) 100 mg PO TID PRN PRN Reason: Cough Last Admin: 02/13/22 16:04 Dose: 100 mg Buspirone HCl (Buspirone Hcl 5 Mg Tablet) 7.5 mg PO BID [facility] Last Admin: 02/14/22 07:32 Dose: 7.5 mg Docusate Sodium (Docusate Sodium 100 Mg Capsule) 100 mg PO DAILY PRN PRN Reason: Constipation Last Admin: 02/13/22 10:49 Dose: 100 mg Docusate Sodium (Docusate Sodium 100 Mg Capsule) 100 mg PO DAILY PRN PRN Reason: Constipation Last Admin: 02/10/22 21:27 Dose: 100 mg Doxycycline Hyclate (Doxycycline Hyclate 100 Mg Tablet) 100 mg PO Q12H [facility] Last Admin: 02/14/22 05:47 Dose: 100 mg Enoxaparin Sodium (Enoxaparin Sodium 40 Mg/0.4 Ml Syringe) 40 mg SUBCUT Q24H [facility] Last Admin: 02/14/22 06:35 Dose: Not Given Folic Acid (Folic Acid 1 Mg Tablet) 1 mg PO DAILY [facility] Last Admin: 02/14/22 07:31 Dose: 1 mg Gabapentin (Gabapentin 100 Mg Capsule) 100 mg PO BID [facility] Last Admin: 02/14/22 07:31 Dose: 100 mg Guaifenesin (Guaifenesin 100 Mg/5 Ml Liquid) 5 ml PO Q4H PRN PRN Reason: Cough Last Admin: 02/12/22 08:51 Dose: 5 ml Guaifenesin (Guaifenesin La 600 Mg Tab.Er.12h) 600 mg PO BID [facility] Last Admin: 02/14/22 07:30 Dose: 600 mg Guaifenesin/Codeine Phosphate (Guaifen/Codeine Sf 200/20/10ml 10 Ml Liquid) 5 ml PO Q4H [facility] Last Admin: 02/14/22 05:47 Dose: 5 ml Hydroxyzine HCl (Hydroxyzine Hcl 10 Mg Tablet) 10 mg PO Q24H PRN PRN Reason: Anxiety Last Admin: 02/11/22 16:02 Dose: 10 mg Loratadine (Loratadine 10 Mg Tablet) 10 mg PO DAILY [facility] Last Admin: 02/14/22 07:30 Dose: 10 mg Loratadine (Loratadine 10 Mg Tablet) 10 mg PO DAILY [facility] Last Admin: 02/14/22 07:32 Dose: Not Given Megestrol Acetate (Megestrol Acetate 400 Mg/10 Ml Oral.Susp) 200 mg PO BID [facility] Last Admin: 02/14/22 07:33 Dose: 200 mg Methylprednisolone Sodium Succinate (Methylprednisolone Sod Succ 40 Mg/Ml Vial) 40 mg IVPUSH BID [facility] Nicotine (Nicotine 21 Mg Patch.Td24) 21 mg TRANSDERMA DAILY [facility] Last Admin: 02/14/22 07:30 Dose: 21 mg Nystatin (Nystatin Oral Susp 500,000 Unit/5 Ml Oral.Susp) 500,000 unit PO QID [facility]; Protocol Last Admin: 02/14/22 07:30 Dose: 500,000 unit Olanzapine (Olanzapine 10 Mg Tablet) 10 mg PO BEDTIME [facility] Last Admin: 02/13/22 21:14 Dose: 10 mg Ondansetron HCl (Ondansetron Hcl 4 Mg/2 Ml Vial) 4 mg IVPUSH Q8H PRN PRN Reason: Nausea and Vomiting Pharmacy Consult (Consult Rx Perform Med Rec) 1 each MISCELLANE ONCE PRN PRN Reason: Consult order Polyethylene Glycol (Polyethylene Glycol 3350 17 Gm Powd.Pack) 17 gm PO DAILY [facility] Last Admin: 02/14/22 07:31 Dose: 17 gm Psyllium Hydrophilic Mucilloid (Psyllium Seed 3.4 Gm Powd.Pack) 3.4 gm PO DAILY [facility] Last Admin: 02/14/22 07:31 Dose: 3.4 gm Sodium Chloride (0.9 % Sodium Chloride Flush 3 Ml Syringe) 3 ml IVFLUSH QSHIFT [facility] Last Admin: 02/14/22 07:32 Dose: 3 ml Tamsulosin HCl (Tamsulosin Hcl 0.4 Mg Capsule) 0.4 mg PO DAILY [facility] Last Admin: 02/14/22 07:30 Dose: 0.4 mg Tiotropium [place] (Tiotropium [place] 18 Mcg Cap.W.Dev) 1 puff INHALE RDAILY [facility] Last Admin: 02/14/22 08:13 Dose: 1 puff Trazodone HCl (Trazodone Hcl 100 Mg Tablet) 100 mg PO BEDTIME PRN PRN Reason: Insomnia Last Admin: 02/12/22 20:32 Dose: 100 mg Home Medications Medication Instructions Recorded Confirmed Last Taken Type acamprosate 333 mg tablet,delayed 333 mg PO TID 01/25/22 02/08/22 Unknown History release acetaminophen 300 mg-codeine 30 mg 1 tab PO BID PRN Pain 01/25/22 02/08/22 Unknown History tablet albuterol sulfate 90 mcg/actuation 2 puff inhalation Q4-6H PRN 01/25/22 02/08/22 Unknown History aerosol inhaler Wheezing benzonatate 100 mg capsule 100 mg PO TID PRN Cough 01/25/22 02/08/22 Unknown History buspirone 7.5 mg tablet 7.5 mg PO BID 01/25/22 02/08/22 Unknown History docusate sodium 100 mg capsule 100 mg PO DAILY PRN Constipation 01/25/22 02/08/22 Unknown History fluticasone 500 mcg-salmeterol 50 1 inh inhalation BID 01/25/22 02/08/22 Unknown History mcg/dose blistr powdr for inhalation (Advair Diskus) folic acid 1 mg tablet 1 mg PO DAILY 01/25/22 02/08/22 Unknown History gabapentin 100 mg capsule 100 mg PO BID 01/25/22 02/08/22 Unknown History guaifenesin 600 mg tablet, 600 mg PO BID 01/25/22 02/08/22 Unknown History extended release 12 hr hydroxyzine HCl 10 mg tablet 10 mg PO Q24H PRN Anxiety 01/25/22 02/08/22 Unknown History megestrol 400 mg/10 mL (10 mL) 200 mg PO BID 01/25/22 02/08/22 Unknown History oral suspension olanzapine 10 mg tablet 10 mg PO BEDTIME 01/25/22 02/08/22 Unknown History psyllium 1 tbsp PO DAILY 01/25/22 02/08/22 Unknown History tamsulosin 0.4 mg capsule 0.4 mg PO DAILY 01/25/22 02/08/22 Unknown History tiotropium bromide 2.5 2 puff inhalation DAILY 01/25/22 02/08/22 Unknown History mcg/actuation mist for inhalation trazodone 100 mg tablet 100 mg PO BEDTIME PRN Insomnia 01/25/22 02/08/22 Unknown History Physical Exam Vital Signs: Vital Signs: Last Vital Signs Temp 99.4 F 02/14/22 07:48 Pulse 88 02/14/22 08:13 Resp 22 H 02/14/22 08:13 BP 118/73 02/14/22 07:48 Pulse Ox 98 02/14/22 07:48 O2 Del Method 02/14/22 07:48 O2 Flow Rate 2 02/14/22 07:48 Oxygen Flow Rate 15 02/07/22 21:28 BMI result Body Mass Index 17.7 Const: General: comfortable, no acute distress, alert and awake Orientation/consciousness: patient oriented x3 HEENT: Head: Yes normal to inspection General nose exam: No nasal polyps present and No nasal discharge present Face and sinus: Yes sinuses nontender Mouth: oropharynx normal Throat: Yes posterior oropharynx normal Eyes: General: appearance normal, both eyes and all related structures Neck: Neck: Yes normal visual inspection, Yes no lymphadenopathy, Yes trachea midline and Yes no JVD Thyroid: Thyroid normal Chest: Chest palpation & inspection: normal inspection of the chest, normal palpation of entire chest wall and no tenderness Resp: Other: Percussion note is resonant, breath sounds are distant, with prolonged expiratory phase. He has a few scattered expiratory wheezes over the basilar areas. Cardio: Palpation: normal PMI Rate: regular rate Rhythm: regular rhythm Heart sounds: no gallops and no murmurs GI: Palpation (GI): Soft to palpation, nontender, No hepatosplenomegaly present and no masses Auscultation: normal bowel sounds Back/Spine/Pelvis: Thoracic/Lumbar Spine: thoracic and lumbar spine normal to inspection Skin: General skin exam: no rashes or lesions noted Neuro: General: patient oriented x3 and no focal motor deficits Cranial nerves: Yes CN's II-XII intact bilaterally Extrem: General: Yes normal to inspection, Yes no clubbing, cyanosis or edema and Yes no calf tenderness Psych: Appearance: grossly normal Speech and movement: Normal speech and movement present (But slow) Results Laboratory Findings CBC and BMP: 02/08/22 06:17 02/08/22 06:17 Abnormal lab findings: Abnormal Labs 02/07/22 02/08/22 02/08/22 21:52 03:44 03:47 WBC 15.2 H RBC 4.41 L Hgb 13.8 L Hct 40.9 L MPV 8.5 L Immature Gran % (Auto) Neut % (Auto) Lymph % (Auto) 19.7 L [place] % (Auto) Lymph # (Auto) Eos # (Auto) 0.5 H Abs Immat Gran (auto) 0.06 H Absolute Neuts (auto) 10.7 H VBG pH VBG HCO3 19 L Carbon Dioxide 21 L Anion Gap BUN 6 L Random Glucose 150 H D Calcium 8.3 L D 02/08/22 02/08/22 02/13/22 06:17 06:17 12:01 WBC 11.8 H RBC 4.34 L Hgb 13.6 L Hct 39.8 L MPV 8.4 L Immature Gran % (Auto) 0.5 H Neut % (Auto) 90.1 H Lymph % (Auto) 8.6 L [place] % (Auto) 0.6 L Lymph # (Auto) 1.0 L Eos # (Auto) Abs Immat Gran (auto) 0.06 H Absolute Neuts (auto) 10.7 H VBG pH 7.45 H VBG HCO3 21 L Carbon Dioxide Anion Gap 11 L BUN 6 L Random Glucose 160 H Calcium Diagnostic Findings Chest x-ray: report reviewed and image reviewed Assessment and Plan (1) COPD exacerbation: Status: Acute (2) Leukocytosis: Qualifiers: Leukocytosis type: unspecified Qualified Code(s): D72.829 - Elevated white blood cell count, unspecified Status: Acute (3) Smoker in home: Status: Acute Plan This gentleman with advanced chronic obstructive pulmonary disease, continued smoker, Comes with recurrent acute exacerbation, May I thing because of his continued smoking and not a reliable% to take care of himself, he is at risk of recurrent exacerbation. have a low-grade respiratory infection, but leukocytosis is most likely due to steroids. Recc : IV Solu-Medrol may be changed to oral prednisone 40 mg a day, and I would suggest to wean him down slowly by 10 mg every week. Complete the course of antibiotic. Tool And [employer] Inspector the patient and enforce smoking cessation, may use nicotine patch . Elizabeth aguila Q 6 hours while awake. O2 to keep O2 sat 89-92%, and try to wean him off . He may need to go home on oxygen but I think he may not be able to manage it. At the time of discharge , resume his regular regimen including Symbicort and Spiriva HandiHaler. Procedures Date of Service Date of Service: 02/14/22
--- NOTE | 2022-02-14 10:14 | HO.PM.IMPN ---
Subjective Subjective Date of Service: 02/14/22 Interval History: copd excerebation Review of Systems still sob with minimal excersional still has cough -whitish yellow sputum Physical Exam Vital Signs: Vital Signs: Last Vital Signs Temp 99.4 F 02/14/22 07:48 Pulse 88 02/14/22 08:13 Resp 22 H 02/14/22 08:13 BP 118/73 02/14/22 07:48 Pulse Ox 98 02/14/22 07:48 O2 Del Method 02/14/22 07:48 O2 Flow Rate 2 02/14/22 07:48 Oxygen Flow Rate 15 02/07/22 21:28 BMI result Body Mass Index 17.7 ?Appearance: Alert.? Oriented X3.? sob? cvs: rrr, [id number] , no murmur res: air entry diminshed , b/l wheezing abd: no rebound or guarding ,nt, bs present. ext pulses present , no cyanosis . neuro: axo3 , nonfocal. Objective Data Active Medications Acamprosate (Acamprosate Calcium 333 Mg Tablet.) 333 mg PO TID [facility] Last Admin: 02/14/22 07:31 Dose: 333 mg Documented By: LYSSteve Acetaminophen (Acetaminophen 325 Mg Tablet) 650 mg PO Q6H PRN PRN Reason: Pain, Mild (Pain Scale 1-3) Last Admin: 02/11/22 16:03 Dose: 650 mg Documented By: TERE Albuterol/Ipratropium (Albuterol/Iprat 2.5/0.5mg 3 Ml Ampul.Neb) 3 ml INHALE RQ4H PRN PRN Reason: Shortness of Breath/Wheezing Last Admin: 02/14/22 00:54 Dose: 3 ml Documented By: HALLIE Albuterol/Ipratropium (Albuterol/Iprat 2.5/0.5mg 3 Ml Ampul.Neb) 3 ml INHALE RQ4H WHILE AWAKE [facility] Last Admin: 02/13/22 15:48 Dose: 3 ml Documented By: ULRICC Benzonatate (Benzonatate 100 Mg Capsule) 100 mg PO TID PRN PRN Reason: Cough Last Admin: 02/13/22 16:04 Dose: 100 mg Documented By: TERE Buspirone HCl (Buspirone Hcl 5 Mg Tablet) 7.5 mg PO BID [facility] Last Admin: 02/14/22 07:32 Dose: 7.5 mg Documented By: ADONIS Docusate Sodium (Docusate Sodium 100 Mg Capsule) 100 mg PO DAILY PRN PRN Reason: Constipation Last Admin: 02/13/22 10:49 Dose: 100 mg Documented By: COTSAM Docusate Sodium (Docusate Sodium 100 Mg Capsule) 100 mg PO DAILY PRN PRN Reason: Constipation Last Admin: 02/10/22 21:27 Dose: 100 mg Documented By: CHADWICK Doxycycline Hyclate (Doxycycline Hyclate 100 Mg Tablet) 100 mg PO Q12H [facility] Last Admin: 02/14/22 05:47 Dose: 100 mg Documented By: CHADWICK Enoxaparin Sodium (Enoxaparin Sodium 40 Mg/0.4 Ml Syringe) 40 mg SUBCUT Q24H [facility] Last Admin: 02/14/22 06:35 Dose: Not Given Documented By: CHADWICK Non-Admin Reason: Patient Refused Folic Acid (Folic Acid 1 Mg Tablet) 1 mg PO DAILY [facility] Last Admin: 02/14/22 07:31 Dose: 1 mg Documented By: ADONIS Gabapentin (Gabapentin 100 Mg Capsule) 100 mg PO BID [facility] Last Admin: 02/14/22 07:31 Dose: 100 mg Documented By: ADONIS Guaifenesin (Guaifenesin 100 Mg/5 Ml Liquid) 5 ml PO Q4H PRN PRN Reason: Cough Last Admin: 02/12/22 08:51 Dose: 5 ml Documented By: TERE Guaifenesin (Guaifenesin La 600 Mg Tab.Er.12h) 600 mg PO BID [facility] Last Admin: 02/14/22 07:30 Dose: 600 mg Documented By: ADONIS Guaifenesin/Codeine Phosphate (Guaifen/Codeine Sf 200/20/10ml 10 Ml Liquid) 5 ml PO Q4H [facility] Last Admin: 02/14/22 05:47 Dose: 5 ml Documented By: CHADWICK Hydroxyzine HCl (Hydroxyzine Hcl 10 Mg Tablet) 10 mg PO Q24H PRN PRN Reason: Anxiety Last Admin: 02/11/22 16:02 Dose: 10 mg Documented By: TERE Loratadine (Loratadine 10 Mg Tablet) 10 mg PO DAILY [facility] Last Admin: 02/14/22 07:30 Dose: 10 mg Documented By: ADONIS Loratadine (Loratadine 10 Mg Tablet) 10 mg PO DAILY [facility] Last Admin: 02/14/22 07:32 Dose: Not Given Documented By: ADONIS Non-Admin Reason: Duplicate Order Megestrol Acetate (Megestrol Acetate 400 Mg/10 Ml Oral.Susp) 200 mg PO BID [facility] Last Admin: 02/14/22 07:33 Dose: 200 mg Documented By: ADONIS Methylprednisolone Sodium Succinate (Methylprednisolone Sod Succ 40 Mg/Ml Vial) 40 mg IVPUSH BID [facility] Nicotine (Nicotine 21 Mg Patch.Td24) 21 mg TRANSDERMA DAILY [facility] Last Admin: 02/14/22 07:30 Dose: 21 mg Documented By: ADONIS Nystatin (Nystatin Oral Susp 500,000 Unit/5 Ml Oral.Susp) 500,000 unit PO QID [facility]; Protocol Last Admin: 02/14/22 07:30 Dose: 500,000 unit Documented By: ADONIS Olanzapine (Olanzapine 10 Mg Tablet) 10 mg PO BEDTIME [facility] Last Admin: 02/13/22 21:14 Dose: 10 mg Documented By: CHADWICK Ondansetron HCl (Ondansetron Hcl 4 Mg/2 Ml Vial) 4 mg IVPUSH Q8H PRN PRN Reason: Nausea and Vomiting Pharmacy Consult (Consult Rx Perform Med Rec) 1 each MISCELLANE ONCE PRN PRN Reason: Consult order Polyethylene Glycol (Polyethylene Glycol 3350 17 Gm Powd.Pack) 17 gm PO DAILY [facility] Last Admin: 02/14/22 07:31 Dose: 17 gm Documented By: ADONIS Psyllium Hydrophilic Mucilloid (Psyllium Seed 3.4 Gm Powd.Pack) 3.4 gm PO DAILY [facility] Last Admin: 02/14/22 07:31 Dose: 3.4 gm Documented By: ADONIS Sodium Chloride (0.9 % Sodium Chloride Flush 3 Ml Syringe) 3 ml IVFLUSH QSHIFT [facility] Last Admin: 02/14/22 07:32 Dose: 3 ml Documented By: ADONIS Tamsulosin HCl (Tamsulosin Hcl 0.4 Mg Capsule) 0.4 mg PO DAILY [facility] Last Admin: 02/14/22 07:30 Dose: 0.4 mg Documented By: ADONIS Tiotropium [place] (Tiotropium [place] 18 Mcg Cap.W.Dev) 1 puff INHALE OSKAR CUAUHTEMOC Last Admin: 02/14/22 08:13 Dose: 1 puff Documented By: ERIC Trazodone HCl (Trazodone Hcl 100 Mg Tablet) 100 mg PO BEDTIME PRN PRN Reason: Insomnia Last Admin: 02/12/22 20:32 Dose: 100 mg Documented By: GIAN Labs CBC & Chem 7: 02/08/22 06:17 02/08/22 06:17 Labs: Laboratory Results - last 24 hr 02/13/22 12:01 VBG pH 7.45 H VBG pCO2 29 VBG pO2 126 VBG HCO3 21 L VBG O2 Saturation 99.0 VBG Base Excess -1.7 Assessment and Plan (1) Emphysema lung: Status: Acute (2) COPD exacerbation: Status: Acute Plan 58-year-old male with past medical history of COPD who presents to the hospital with complaints of shortness of breath cough and sputum production found to be in COPD exacerbation ?acute COPD exacerbation still sob , talking in short sentences mild oral? thrush - has dyspnea, cough, sputum production - has leukocytosis improving,afebrile adjusted IV steroids, DuoNeb p.r.n. as well as scheduled, antibiotics, also added nystatin for oral thush, cxr and vbg yesteday was fine pulm eval continue above management-added added extra nebs /magnesium . - titrate oxygen down to O2 level of 89-92% given his extensive history of COPD, taper steriods and oxygen slowly ?schizophrenia - will continue his home medications ?tobacco use disorder continue nicotine patch counseling done. DVT prophylaxis: Lovenox ? Need for inpatient:? COPD exacerbation- require nebs, steroids IV Quality Stroke Does the patient have a stroke diagnosis?: No VTE Prior VTE?: No VTE Risk Level:: Medical - moderate - high VTE Device Contraindication: Treatment Not Indicated VTE Drug Contraindication: N/A - Med Ordered
[2022-02-14] MEDS: Fluticasone Propionate Nasal 16 GM SPRAY 1 SPRAY NOSTRIL-B (11:32)
--- NOTE | 2022-02-14 13:42 | MHC.CLN ---
F/U DIET=REGULAR. SUPPLEMENT ENSURE BID PROVIDES ADDITIONAL 700 KCAL, 40 G PROTEIN. INTAKE APPEARS VARIABLE WITH MANY MEALS GREATER THAN 50%. TAKES MEGACE APPETITE STIMULANT. FOLLOW FOR WEIGHTS AND INTAKE.
[2022-02-14] MEDS: OLANZapine 10 MG TABLET PO (20:51)
[2022-02-15] VITALS (9 sets, daily range): BP systolic 139–166; BP diastolic 59–81; PULSE 93–108; RESP 16–22; TEMP 36.2–38.1; O2SAT 94–100
[2022-02-15] MEDS: guaiFEN/Codeine SF 200/20/10ML 10 ML LIQUID 5 ML PO ×5 (01:55→22:53)
[2022-02-15] MEDS: Albuterol/Iprat 2.5/0.5MG 3 ML AMPUL.NEB INHALE (04:53)
[2022-02-15] MEDS: polyethylene glycoL 3350 17 GM POWD.PACK PO (08:33)
[2022-02-15] MEDS: Nicotine 21 MG PATCH.TD24 TRANSDERMA (08:33)
[2022-02-15] MEDS: methylPREDNISolone Sod Succ 40 MG/ML VIAL IVPUSH ×2 (08:34→20:23)
[2022-02-15] MEDS: Nystatin Oral Susp 500,000 UNIT/5 ML ORAL.SUSP 500000 UNIT PO ×3 (08:34→16:53)
[2022-02-15] MEDS: Folic Acid 1 MG TABLET PO (08:34)
[2022-02-15] MEDS: busPIRone HCl 5 MG TABLET 7.5 MG PO ×2 (08:34→20:25)
[2022-02-15] MEDS: Acamprosate Calcium 333 MG TABLET.DR PO ×3 (08:35→20:25)
[2022-02-15] MEDS: Loratadine 10 MG TABLET PO (08:35)
[2022-02-15] MEDS: Tamsulosin HCL 0.4 MG CAPSULE PO (08:35)
[2022-02-15] MEDS: Gabapentin 100 MG CAPSULE PO ×2 (08:35→20:25)
[2022-02-15] MEDS: guaiFENesin LA 600 MG TAB.ER.12H PO ×2 (08:35→20:25)
[2022-02-15] MEDS: 0.9 % Sodium Chloride Flush 3 ML SYRINGE IVFLUSH ×3 (08:36→20:23)
[2022-02-15] MEDS: Fluticasone Propionate Nasal 16 GM SPRAY 1 SPRAY NOSTRIL-B (08:37)
--- NOTE | 2022-02-15 10:07 | HO.PM.IMPN ---
Subjective Subjective Date of Service: 02/15/22 <Carmen Rodriguez NP - Last Filed: 02/15/22 10:22> 03/06/22 <Simone Rucker MD - Last Filed: 03/06/22 14:46> Review of Systems Follow up COPD exacerbation sleeping <Carmen Rodriguez NP - Last Filed: 02/15/22 10:22> Physical Exam Vital Signs: Vital Signs: Last Vital Signs Temp 100.5 F H 02/15/22 07:50 Pulse 100 02/15/22 07:50 Resp 16 02/15/22 07:50 BP 166/74 H 02/15/22 07:50 Pulse Ox 94 02/15/22 07:50 O2 Del Method 02/15/22 07:50 O2 Flow Rate 3 02/15/22 07:50 Oxygen Flow Rate 15 02/07/22 21:28 BMI result Body Mass Index 17.7 <Carmen Rodriguez NP - Last Filed: 02/15/22 10:22> Appearing in no acute distress lung sounds dim heart regular rate rhythm positive bowel sounds, abdomen is soft, nontender neuro patient is alert x3, no focal deficits <Carmen Rodriguez NP - Last Filed: 02/15/22 10:22> Objective Data Active Medications Acamprosate (Acamprosate Calcium 333 Mg Tablet.) 333 mg PO TID [facility] Last Admin: 02/15/22 08:35 Dose: 333 mg Documented By: SOLITARIO Acetaminophen (Acetaminophen 325 Mg Tablet) 650 mg PO Q6H PRN PRN Reason: Pain, Mild (Pain Scale 1-3) Last Admin: 02/11/22 16:03 Dose: 650 mg Documented By: TERE Benzonatate (Benzonatate 100 Mg Capsule) 100 mg PO TID PRN PRN Reason: Cough Last Admin: 02/13/22 16:04 Dose: 100 mg Documented By: TERE Buspirone HCl (Buspirone Hcl 5 Mg Tablet) 7.5 mg PO BID [facility] Last Admin: 02/15/22 08:34 Dose: 7.5 mg Documented By: SOLITARIO Docusate Sodium (Docusate Sodium 100 Mg Capsule) 100 mg PO DAILY PRN PRN Reason: Constipation Last Admin: 02/13/22 10:49 Dose: 100 mg Documented By: TERE Docusate Sodium (Docusate Sodium 100 Mg Capsule) 100 mg PO DAILY PRN PRN Reason: Constipation Last Admin: 02/10/22 21:27 Dose: 100 mg Documented By: CHADWICK Doxycycline Hyclate (Doxycycline Hyclate 100 Mg Tablet) 100 mg PO Q12H [facility] Last Admin: 02/15/22 05:10 Dose: 100 mg Documented By: CHADWICK Enoxaparin Sodium (Enoxaparin Sodium 40 Mg/0.4 Ml Syringe) 40 mg SUBCUT Q24H [facility] Last Admin: 02/15/22 05:57 Dose: Not Given Documented By: CHADWICK Non-Admin Reason: Patient Refused Fluticasone Propionate (Fluticasone Propionate Nasal 16 Gm [place]) 1 spray NOSTRIL-B DAILY [facility] Last Admin: 02/15/22 08:37 Dose: 1 spray Documented By: SOLITARIO Folic Acid (Folic Acid 1 Mg Tablet) 1 mg PO DAILY [facility] Last Admin: 02/15/22 08:34 Dose: 1 mg Documented By: SOLITARIO Gabapentin (Gabapentin 100 Mg Capsule) 100 mg PO BID [facility] Last Admin: 02/15/22 08:35 Dose: 100 mg Documented By: SOLITARIO Guaifenesin (Guaifenesin 100 Mg/5 Ml Liquid) 5 ml PO Q4H PRN PRN Reason: Cough Last Admin: 02/12/22 08:51 Dose: 5 ml Documented By: TERE Guaifenesin (Guaifenesin La 600 Mg Tab.Er.12h) 600 mg PO BID [facility] Last Admin: 02/15/22 08:35 Dose: 600 mg Documented By: SOLITARIO Guaifenesin/Codeine Phosphate (Guaifen/Codeine Sf 200/20/10ml 10 Ml Liquid) 5 ml PO Q4H [facility] Last Admin: 02/15/22 08:36 Dose: 5 ml Documented By: SOLITARIO Hydroxyzine HCl (Hydroxyzine Hcl 10 Mg Tablet) 10 mg PO Q24H PRN PRN Reason: Anxiety Last Admin: 02/11/22 16:02 Dose: 10 mg Documented By: TERE Loratadine (Loratadine 10 Mg Tablet) 10 mg PO DAILY [facility] Last Admin: 02/15/22 08:35 Dose: 10 mg Documented By: SOLITARIO Loratadine (Loratadine 10 Mg Tablet) 10 mg PO DAILY [facility] Last Admin: 02/15/22 08:35 Dose: Not Given Documented By: SOLITARIO Non-Admin Reason: See Note Megestrol Acetate (Megestrol Acetate 400 Mg/10 Ml Oral.Susp) 200 mg PO BID [facility] Last Admin: 02/14/22 20:52 Dose: 200 mg Documented By: CHADWICK Methylprednisolone Sodium Succinate (Methylprednisolone Sod Succ 40 Mg/Ml Vial) 40 mg IVPUSH BID [facility] Last Admin: 02/15/22 08:34 Dose: 40 mg Documented By: SOLITARIO Nicotine (Nicotine 21 Mg Patch.Td24) 21 mg TRANSDERMA DAILY [facility] Last Admin: 02/15/22 08:33 Dose: 21 mg Documented By: SOLITARIO Nystatin (Nystatin Oral Susp 500,000 Unit/5 Ml Oral.Susp) 500,000 unit PO QID [facility]; Protocol Last Admin: 02/15/22 08:34 Dose: 500,000 unit Documented By: SOLITARIO Olanzapine (Olanzapine 10 Mg Tablet) 10 mg PO BEDTIME [facility] Last Admin: 02/14/22 20:51 Dose: 10 mg Documented By: CHADWICK Ondansetron HCl (Ondansetron Hcl 4 Mg/2 Ml Vial) 4 mg IVPUSH Q8H PRN PRN Reason: Nausea and Vomiting Pharmacy Consult (Consult Rx Perform Med Rec) 1 each MISCELLANE ONCE PRN PRN Reason: Consult order Polyethylene Glycol (Polyethylene Glycol 3350 17 Gm Powd.Pack) 17 gm PO DAILY [facility] Last Admin: 02/15/22 08:33 Dose: 17 gm Documented By: SOLITARIO Psyllium Hydrophilic Mucilloid (Psyllium Seed 3.4 Gm Powd.Pack) 3.4 gm PO DAILY [facility] Last Admin: 02/15/22 08:34 Dose: 3.4 gm Documented By: SOLITARIO Sodium Chloride (0.9 % Sodium Chloride Flush 3 Ml Syringe) 3 ml IVFLUSH QSHIFT [facility] Last Admin: 02/15/22 08:36 Dose: 3 ml Documented By: SOLTIARIO Tamsulosin HCl (Tamsulosin Hcl 0.4 Mg Capsule) 0.4 mg PO DAILY [facility] Last Admin: 02/15/22 08:35 Dose: 0.4 mg Documented By: SOLITARIO Tiotropium [place] (Tiotropium [place] 18 Mcg Cap.W.Dev) 1 puff INHALE [place] [facility] Last Admin: 02/15/22 09:00 Dose: Not Given Documented By: ERIC Non-Admin Reason: Patient Asleep Trazodone HCl (Trazodone Hcl 100 Mg Tablet) 100 mg PO BEDTIME PRN PRN Reason: Insomnia Last Admin: 02/12/22 20:32 Dose: 100 mg Documented By: GIAN <Carmen Rodriguez NP - Last Filed: 02/15/22 10:22> Labs CBC & Chem 7: : 02/08/22 06:17 02/08/22 06:17 <Carmen Rodriguez NP - Last Filed: 02/15/22 10:22> Assessment and Plan (1) Emphysema lung: (2) COPD exacerbation: Status: Acute <Carmen Rodriguez NP - Last Filed: 02/15/22 10:22> Assessment and Plan: 58-year-old male with past medical history of COPD who presents to the hospital with complaints of shortness of breath cough and sputum production found to be in COPD exacerbation Acute COPD exacerbation has dyspnea, cough, sputum production IV steroids, DuoNeb p.r.n. as well as scheduled, antibiotics cxr and vbg yesterday wnl titrate oxygen down to O2 level of 89-92% given his extensive history of COPD Change IV steroid to oral prednisone with slow taper by 10mg a week Oral thrush also added nystatin for oral thush, Schizophrenia will continue his home medications tobacco use disorder continue nicotine patch counseling done. DVT prophylaxis: Debra Attending Dr. Rucker Full code Need for inpatient:? COPD exacerbation- require nebs, steroids IV <Carmen Rodriguez NP - Last Filed: 02/15/22 10:22> Quality Stroke Does the patient have a stroke diagnosis?: No <Carmen Rodriguez NP - Last Filed: 02/15/22 10:22> VTE Prior VTE?: No <Carmen Rodriguez NP - Last Filed: 02/15/22 10:22> VTE Risk Level:: Medical - moderate - high <Carmen Rodriguez NP - Last Filed: 02/15/22 10:22> VTE Device Contraindication: Treatment Not Indicated <Carmen Rodriguez NP - Last Filed: 02/15/22 10:22> VTE Drug Contraindication: N/A - Med Ordered <Carmen Rodriguez NP - Last Filed: 02/15/22 10:22>
[2022-02-15] MEDS: Albuterol Sulfate (0.083%) 2.5 MG/3 ML VIAL.NEB INHALE ×3 (11:23→21:06)
[2022-02-15] MEDS: Megestrol Acetate 400 MG/10 ML ORAL.SUSP 200 MG PO ×2 (11:25→20:40)
[2022-02-15] MEDS: levoFLOXacin 500 MG TABLET PO (13:12)
--- NOTE | 2022-02-15 13:36 | MHC.CM.PN ---
PATIENT REMAINS A SLOW TAPER CASE MANAGEMENT TO ADDRESS SHORT TERM REHAB OPTION. AT TIME OF ATTEMPT, HE WAS ASLEEP. CASE MANAGEMENT FOLLOWING PATIENT WILL HAVE NEW HOME O2 NEEDS.
[2022-02-15 15:02] LABS: Appearance Urine CLEAR; Color Urine YELLOW; Glucose Urine UA NEG (NEG); Leukocyte Esterase Urine NEG (NEG); Nitrite Urine NEG (NEG); PH 6.5 (5.0-8.0); Specific Gravity - Urine <= 1.005 (1.005-1.025); Urine Blood NEG (NEG); Urine Ketones NEG (NEG); Urine Protein NEG (NEG-TRACE)
[2022-02-15] MEDS: OLANZapine 10 MG TABLET PO (20:25)
[2022-02-16] VITALS (8 sets, daily range): BP systolic 131–149; BP diastolic 51–87; PULSE 93–120; RESP 16–22; TEMP 36.8–37.4; O2SAT 95–98
[2022-02-16] MEDS: guaiFEN/Codeine SF 200/20/10ML 10 ML LIQUID 5 ML PO (01:05)
[2022-02-16] MEDS: Albuterol Sulfate (0.083%) 2.5 MG/3 ML VIAL.NEB INHALE ×3 (04:32→18:12)
--- NOTE | 2022-02-16 09:43 | P.PNIM_ITS ---
Subjective Subjective Date of Service: 02/16/22 Review of Systems Follow up COPD exacerbation sleeping Physical Exam Vital Signs: Vital Signs: Last Vital Signs Temp 98.3 F 02/16/22 08:38 Pulse 100 02/16/22 08:38 Resp 18 02/16/22 08:38 BP 146/66 H 02/16/22 08:38 Pulse Ox 98 02/16/22 08:38 O2 Del Method 02/16/22 08:38 O2 Flow Rate 2 02/16/22 08:38 Oxygen Flow Rate 15 02/07/22 21:28 BMI result Body Mass Index 17.7 Appearing in no acute distress head is normocephalic atraumatic eyes pupils are PERRLA sclera is anicteric mouth throat mucous membranes are intact and moist neck is supple no lymphadenopathy, no JVD noted lung sounds are clear to auscultation heart regular rate rhythm, clear S1, S2 positive bowel sounds, abdomen is soft, nontender neuro patient is alert x3, no focal deficits Objective Data Active Medications Acamprosate (Acamprosate Calcium 333 Mg Tablet.) 333 mg PO TID ON LICENSE OF [facility] Last Admin: 02/15/22 20:25 Dose: 333 mg Documented By: MORRINRhett Acetaminophen (Acetaminophen 325 Mg Tablet) 650 mg PO Q6H PRN PRN Reason: Pain, Mild (Pain Scale 1-3) Last Admin: 02/11/22 16:03 Dose: 650 mg Documented By: TERE Albuterol Sulfate (Albuterol Sulfate (0.083%) 2.5 Mg/3 Ml Vial.Neb) 2.5 mg INHALE RQ4H WHILE AWAKE ON LICENSE OF [facility] Last Admin: 02/16/22 04:32 Dose: 2.5 mg Documented By: LIAM Albuterol/Ipratropium (Albuterol/Iprat 2.5/0.5mg 3 Ml Ampul.Neb) 3 ml INHALE RQ4H PRN PRN Reason: Shortness of Breath/Wheezing Benzonatate (Benzonatate 100 Mg Capsule) 100 mg PO TID PRN PRN Reason: Cough Last Admin: 02/13/22 16:04 Dose: 100 mg Documented By: TERE Buspirone HCl (Buspirone Hcl 5 Mg Tablet) 7.5 mg PO BID [facility] Last Admin: 02/15/22 20:25 Dose: 7.5 mg Documented By: ANDRERINRhett Docusate Sodium (Docusate Sodium 100 Mg Capsule) 100 mg PO DAILY PRN PRN Reason: Constipation Last Admin: 02/13/22 10:49 Dose: 100 mg Documented By: COTEMA Docusate Sodium (Docusate Sodium 100 Mg Capsule) 100 mg PO DAILY PRN PRN Reason: Constipation Last Admin: 02/10/22 21:27 Dose: 100 mg Documented By: CHADWICK Enoxaparin Sodium (Enoxaparin Sodium 40 Mg/0.4 Ml Syringe) 40 mg SUBCUT Q24H ON LICENSE OF [facility] Last Admin: 02/16/22 04:46 Dose: Not Given Documented By: AISHWARYA Non-Admin Reason: Patient Refused Fluticasone Propionate (Fluticasone Propionate Nasal 16 Gm [place]) 1 spray NOSTRIL-B DAILY ON [facility] Last Admin: 02/15/22 08:37 Dose: 1 spray Documented By: SOLITARIO Folic Acid (Folic Acid 1 Mg Tablet) 1 mg PO DAILY ON [facility] OF [facility] Last Admin: 02/15/22 08:34 Dose: 1 mg Documented By: SOLITARIO Gabapentin (Gabapentin 100 Mg Capsule) 100 mg PO BID ON [facility] OF [facility] Last Admin: 02/15/22 20:25 Dose: 100 mg Documented By: AISHWARYA Guaifenesin (Guaifenesin 100 Mg/5 Ml Liquid) 5 ml PO Q4H PRN PRN Reason: Cough Last Admin: 02/12/22 08:51 Dose: 5 ml Documented By: TERE Guaifenesin (Guaifenesin La 600 Mg Tab.Er.12h) 600 mg PO BID ON [facility] OF [facility] Last Admin: 02/15/22 20:25 Dose: 600 mg Documented By: AISHWARYA Guaifenesin/Codeine Phosphate (Guaifen/Codeine Sf 200/20/10ml 10 Ml Liquid) 5 ml PO Q4H ON LICENSE OF [facility] Last Admin: 02/16/22 04:51 Dose: Not Given Documented By: AISHWARYA Non-Admin Reason: Patient Refused Hydroxyzine HCl (Hydroxyzine Hcl 10 Mg Tablet) 10 mg PO Q24H PRN PRN Reason: Anxiety Last Admin: 02/11/22 16:02 Dose: 10 mg Documented By: TRINHEMA Levofloxacin (Levofloxacin 500 Mg Tablet) 500 mg PO Q24H ON LICENSE OF [facility] Last Admin: 02/15/22 13:12 Dose: 500 mg Documented By: SOLITARIO Loratadine (Loratadine 10 Mg Tablet) 10 mg PO DAILY ON [facility] OF [facility] Last Admin: 02/15/22 08:35 Dose: 10 mg Documented By: SOLITARIO Loratadine (Loratadine 10 Mg Tablet) 10 mg PO DAILY [facility] Last Admin: 02/15/22 08:35 Dose: Not Given Documented By: SOLITARIO Non-Admin Reason: See Note Megestrol Acetate (Megestrol Acetate 400 Mg/10 Ml Oral.Susp) 200 mg PO BID ON [facility] OF [facility] Last Admin: 02/15/22 20:40 Dose: 200 mg Documented By: AISHWARYA Nicotine (Nicotine 21 Mg Patch.Td24) 21 mg TRANSDERMA DAILY ON LICENSE OF [facility] Last Admin: 02/15/22 08:33 Dose: 21 mg Documented By: SOLITARIO Nystatin (Nystatin Oral Susp 500,000 Unit/5 Ml Oral.Susp) 500,000 unit PO QID ON LICENSE OF [facility]; Protocol Last Admin: 02/15/22 20:33 Dose: Not Given Documented By: AISHWARYA Non-Admin Reason: Patient Refused Olanzapine (Olanzapine 10 Mg Tablet) 10 mg PO BEDTIME ON LICENSE OF [facility] Last Admin: 02/15/22 20:25 Dose: 10 mg Documented By: AISHWARYA Ondansetron HCl (Ondansetron Hcl 4 Mg/2 Ml Vial) 4 mg IVPUSH Q8H PRN PRN Reason: Nausea and Vomiting Pharmacy Consult (Consult Rx Perform Med Rec) 1 each MISCELLANE ONCE PRN PRN Reason: Consult order Polyethylene Glycol (Polyethylene Glycol 3350 17 Gm Powd.Pack) 17 gm PO DAILY ON [facility] Last Admin: 02/15/22 08:33 Dose: 17 gm Documented By: SOLITARIO Prednisone (Prednisone 20 Mg Tablet) 40 mg PO DAILY ON LICENSE OF [facility] Psyllium Hydrophilic Mucilloid (Psyllium Seed 3.4 Gm Powd.Pack) 3.4 gm PO DAILY ON [facility] OF [facility] Last Admin: 02/15/22 08:34 Dose: 3.4 gm Documented By: SOLITARIO Sodium Chloride (0.9 % Sodium Chloride Flush 3 Ml Syringe) 3 ml IVFLUSH QSHIFT ON LICENSE OF [facility] Last Admin: 02/15/22 20:23 Dose: 3 ml Documented By: AISHWARYA Tamsulosin HCl (Tamsulosin Hcl 0.4 Mg Capsule) 0.4 mg PO DAILY ON LICENSE OF [facility] Last Admin: 02/15/22 08:35 Dose: 0.4 mg Documented By: SOLITARIO Tiotropium [place] (Tiotropium [place] 18 Mcg Cap.W.Dev) 1 puff INHALE RDAILY ON LICENSE OF [facility] Last Admin: 02/16/22 07:39 Dose: Not Given Documented By: RODRIGO Non-Admin Reason: Patient Refused Trazodone HCl (Trazodone Hcl 100 Mg Tablet) 100 mg PO BEDTIME PRN PRN Reason: Insomnia Last Admin: 02/12/22 20:32 Dose: 100 mg Documented By: GIAN Labs CBC & Chem 7: 02/08/22 06:17 02/08/22 06:17 Labs: Laboratory Results - last 24 hr 02/15/22 14:30 Urine Color YELLOW Urine Appearance CLEAR Urine pH 6.5 Ur Specific [place] <= 1.005 Urine Protein NEG Urine Glucose (UA) NEG Urine Ketones NEG Urine Blood NEG Urine Nitrite NEG Ur Leukocyte Esterase NEG Assessment and Plan (1) Emphysema lung: Status: Acute (2) COPD exacerbation: Status: Acute Plan 58-year-old male with past medical history of COPD who presents to the hospital with complaints of shortness of breath cough and sputum production found to be in COPD exacerbation Acute COPD exacerbation has dyspnea, cough, sputum production IV steroids, DuoNeb p.r.n. as well as scheduled, antibiotics cxr and vbg yesterday wnl titrate oxygen down to O2 level of 89-92% given his extensive history of COPD Change IV steroid to oral prednisone with slow taper by 10mg a week home o2 eval PT eval Oral thrush also added nystatin for oral thush, Schizophrenia will continue his home medications tobacco use disorder continue nicotine patch counseling done. DVT prophylaxis: Lovenox Attending Dr. Rucker Full code Need for inpatient:? COPD exacerbation- require nebs, steroids IV Quality Stroke Does the patient have a stroke diagnosis?: No VTE Prior VTE?: No VTE Risk Level:: Medical - moderate - high VTE Device Contraindication: Treatment Not Indicated VTE Drug Contraindication: N/A - Med Ordered
[2022-02-16] MEDS: Nystatin Oral Susp 500,000 UNIT/5 ML ORAL.SUSP 500000 UNIT PO ×4 (09:57→20:56)
[2022-02-16] MEDS: Folic Acid 1 MG TABLET PO (09:57)
[2022-02-16] MEDS: polyethylene glycoL 3350 17 GM POWD.PACK PO (09:57)
[2022-02-16] MEDS: Tamsulosin HCL 0.4 MG CAPSULE PO (09:57)
[2022-02-16] MEDS: busPIRone HCl 5 MG TABLET 7.5 MG PO ×2 (09:58→20:57)
[2022-02-16] MEDS: guaiFENesin LA 600 MG TAB.ER.12H PO ×2 (09:58→20:57)
[2022-02-16] MEDS: Megestrol Acetate 400 MG/10 ML ORAL.SUSP 200 MG PO ×2 (09:59→20:58)
[2022-02-16] MEDS: Nicotine 21 MG PATCH.TD24 TRANSDERMA (09:59)
[2022-02-16] MEDS: Gabapentin 100 MG CAPSULE PO ×2 (09:59→20:57)
[2022-02-16] MEDS: Acamprosate Calcium 333 MG TABLET.DR PO ×3 (09:59→20:57)
[2022-02-16] MEDS: predniSONE 20 MG TABLET 40 MG PO (09:59)
[2022-02-16] MEDS: Loratadine 10 MG TABLET PO (09:59)
[2022-02-16] MEDS: Fluticasone Propionate Nasal 16 GM SPRAY 1 SPRAY NOSTRIL-B (10:00)
[2022-02-16] MEDS: 0.9 % Sodium Chloride Flush 3 ML SYRINGE IVFLUSH ×2 (10:00→16:20)
[2022-02-16] MEDS: levoFLOXacin 500 MG TABLET PO (11:24)
--- NOTE | 2022-02-16 14:19 | MHC.CLN ---
F/U DIET=REGULAR. SUPPLEMENT ENSURE BID PROVIDES ADDITIONAL 700 KCAL, 40 G PROTEIN. INTAKE APPEARS GOOD X 4 DAYS, 75-100% AT MEALS. TAKES MEGACE APPETITE STIMULANT. FOLLOW FOR WEIGHTS AND INTAKE.
[2022-02-16] MEDS: OLANZapine 10 MG TABLET PO (20:57)
[2022-02-16] MEDS: hydrOXYzine HCL 10 MG TABLET PO (21:09)
[2022-02-17] VITALS (10 sets, daily range): BP systolic 127–155; BP diastolic 56–89; PULSE 86–112; RESP 16–22; TEMP 37–37.8; O2SAT 96–100
--- NOTE | 2022-02-17 00:02 | PC.NURSE ---
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
[2022-02-17] MEDS: Sodium Chloride 0.65 % Nasal 44 ML SPRBTL 1 SPRAY NOSTRIL-B (00:19)
[2022-02-17] MEDS: Albuterol/Iprat 2.5/0.5MG 3 ML AMPUL.NEB INHALE (00:20)
[2022-02-17] MEDS: 0.9 % Sodium Chloride Flush 3 ML SYRINGE IVFLUSH ×2 (00:21→08:05)
[2022-02-17] MEDS: Nystatin Oral Susp 500,000 UNIT/5 ML ORAL.SUSP 500000 UNIT PO ×4 (08:02→20:56)
[2022-02-17] MEDS: Megestrol Acetate 400 MG/10 ML ORAL.SUSP 200 MG PO ×2 (08:03→20:54)
[2022-02-17] MEDS: polyethylene glycoL 3350 17 GM POWD.PACK PO (08:03)
[2022-02-17] MEDS: Nicotine 21 MG PATCH.TD24 TRANSDERMA (08:03)
[2022-02-17] MEDS: busPIRone HCl 5 MG TABLET 7.5 MG PO ×2 (08:05→20:55)
[2022-02-17] MEDS: Gabapentin 100 MG CAPSULE PO ×2 (08:05→20:56)
[2022-02-17] MEDS: Loratadine 10 MG TABLET PO (08:05)
[2022-02-17] MEDS: Acamprosate Calcium 333 MG TABLET.DR PO ×3 (08:05→20:56)
[2022-02-17] MEDS: Tamsulosin HCL 0.4 MG CAPSULE PO (08:05)
[2022-02-17] MEDS: predniSONE 20 MG TABLET 40 MG PO (08:05)
[2022-02-17] MEDS: Folic Acid 1 MG TABLET PO (08:05)
[2022-02-17] MEDS: guaiFENesin LA 600 MG TAB.ER.12H PO ×2 (08:05→21:00)
--- NOTE | 2022-02-17 12:02 | MHC.CM.PN ---
PATIENT REFUSED P.T. PARTICIPATION. PLAN IS HOME O2 EVAL.
[2022-02-17] MEDS: Albuterol Sulfate (0.083%) 2.5 MG/3 ML VIAL.NEB INHALE ×2 (12:10→21:14)
--- NOTE | 2022-02-17 12:21 | MHC.CM.PN ---
PATIENT ASKS FOR A REFERRAL TO [facility], NOW PLACED. WILL NEED COVID BOOSTER IF HAS A BED OFFER CASE MANAGEMENT CONTINUING TO FOLLOW
[2022-02-17] MEDS: levoFLOXacin 500 MG TABLET PO (12:31)
[2022-02-17 15:48] LABS: COVID-19 Test Negative (Negative); IDNOW Serial# 55D5AD1C
--- NOTE | 2022-02-17 15:53 | MHC.CM.PN ---
PATIENT ACCEPTS [facility] BED OFFER PLAN IS DC Monday02/18/22 NEEDS LESS THAN 30 AND RAPID SWAB UPLOADED.
--- NOTE | 2022-02-17 16:04 | P.PNIM_ITS ---
Subjective Subjective Date of Service: 02/17/22 Interval History: Seen and examined this morning Follow-up for COPD exacerbation Reports shortness of breath. Not willing to ambulate with physical therapy at this time. Does not want to leave Review of Systems Review of Systems: Yes all other systems are reviewed and are negative Constitutional Constitutional: Denies chills and Denies fever(s) Cardiovascular Cardiovascular: Denies chest pain and Denies palpitations Respiratory Respiratory: Reports cough Gastrointestinal Gastrointestinal: Reports abdominal pain Endocrine Endocrine: Denies palpitations Physical Exam Vital Signs: Vital Signs: Last Vital Signs Temp 100.1 F 02/17/22 15:21 Pulse 102 H 02/17/22 15:21 Resp 18 02/17/22 15:21 BP 138/63 02/17/22 15:21 Pulse Ox 98 02/17/22 15:21 O2 Del Method 02/17/22 15:21 O2 Flow Rate 2 02/17/22 15:21 Oxygen Flow Rate 15 02/07/22 21:28 BMI result Body Mass Index 17.7 Const: Other: Resting in bed comfortably, will not open eyes Answering questions intermittently General: alert and awake Nutritional Appearance: thin Orientation/consciousness: patient oriented x3 Resp: Other: Scattered expiratory wheezing Effort & Inspection: normal respiratory effort and able to speak in complete sentences Cardio: Rate: regular rate GI: Palpation (GI): Soft to palpation Neuro: General: patient oriented x3 Extrem: General: Yes no pedal edema Objective Data Active Medications Acamprosate (Acamprosate Calcium 333 Mg Tablet.) 333 mg PO TID [facility] Last Admin: 02/17/22 14:13 Dose: 333 mg Documented By: WILLIS Acetaminophen (Acetaminophen 325 Mg Tablet) 650 mg PO Q6H PRN PRN Reason: Pain, Mild (Pain Scale 1-3) Last Admin: 02/11/22 16:03 Dose: 650 mg Documented By: TERE Albuterol Sulfate (Albuterol Sulfate (0.083%) 2.5 Mg/3 Ml Vial.Neb) 2.5 mg INHALE RQ4H WHILE AWAKE [facility] Last Admin: 02/17/22 15:49 Dose: Not Given Documented By: ERIC Non-Admin Reason: Patient Refused Albuterol/Ipratropium (Albuterol/Iprat 2.5/0.5mg 3 Ml Ampul.Neb) 3 ml INHALE RQ4H PRN PRN Reason: Shortness of Breath/Wheezing Last Admin: 02/17/22 00:20 Dose: 3 ml Documented By: AGUSTÍN Benzonatate (Benzonatate 100 Mg Capsule) 100 mg PO TID PRN PRN Reason: Cough Last Admin: 02/13/22 16:04 Dose: 100 mg Documented By: TERE Buspirone HCl (Buspirone Hcl 5 Mg Tablet) 7.5 mg PO BID [facility] Last Admin: 02/17/22 08:05 Dose: 7.5 mg Documented By: WILLIS Docusate Sodium (Docusate Sodium 100 Mg Capsule) 100 mg PO DAILY PRN PRN Reason: Constipation Last Admin: 02/13/22 10:49 Dose: 100 mg Documented By: TERE Docusate Sodium (Docusate Sodium 100 Mg Capsule) 100 mg PO DAILY PRN PRN Reason: Constipation Last Admin: 02/10/22 21:27 Dose: 100 mg Documented By: CHADWICK Enoxaparin Sodium (Enoxaparin Sodium 40 Mg/0.4 Ml Syringe) 40 mg SUBCUT Q24H [facility] Last Admin: 02/17/22 06:39 Dose: Not Given Documented By: AGUSTÍN Non-Admin Reason: Patient Refused Fluticasone Propionate (Fluticasone Propionate Nasal 16 Gm [place]) 1 spray NOSTRIL-B DAILY [facility] Last Admin: 02/17/22 10:09 Dose: Not Given Documented By: WILLIS Non-Admin Reason: Med Not Available Folic Acid (Folic Acid 1 Mg Tablet) 1 mg PO DAILY [facility] Last Admin: 02/17/22 08:05 Dose: 1 mg Documented By: WILLIS Gabapentin (Gabapentin 100 Mg Capsule) 100 mg PO BID [facility] Last Admin: 02/17/22 08:05 Dose: 100 mg Documented By: WILLIS Guaifenesin (Guaifenesin 100 Mg/5 Ml Liquid) 5 ml PO Q4H PRN PRN Reason: Cough Last Admin: 02/12/22 08:51 Dose: 5 ml Documented By: TERE Guaifenesin (Guaifenesin [place] 600 Mg Tab.Er.12h) 600 mg PO BID [facility] Last Admin: 02/17/22 08:05 Dose: 600 mg Documented By: WILLIS Hydroxyzine HCl (Hydroxyzine Hcl 10 Mg Tablet) 10 mg PO Q24H PRN PRN Reason: Anxiety Last Admin: 02/16/22 21:09 Dose: 10 mg Documented By: MAIK Levofloxacin (Levofloxacin 500 Mg Tablet) 500 mg PO Q24H [facility] Last Admin: 02/17/22 12:31 Dose: 500 mg Documented By: WILLIS Loratadine (Loratadine 10 Mg Tablet) 10 mg PO DAILY [facility] Last Admin: 02/17/22 08:05 Dose: 10 mg Documented By: WILLIS Loratadine (Loratadine 10 Mg Tablet) 10 mg PO DAILY [facility] Last Admin: 02/17/22 08:06 Dose: Not Given Documented By: WILLIS Non-Admin Reason: Duplicate Order Megestrol Acetate (Megestrol Acetate 400 Mg/10 Ml Oral.Susp) 200 mg PO BID [facility] Last Admin: 02/17/22 08:03 Dose: 200 mg Documented By: WILLIS Nicotine (Nicotine 21 Mg Patch.Td24) 21 mg TRANSDERMA DAILY [facility] Last Admin: 02/17/22 08:03 Dose: 21 mg Documented By: WILLIS Nystatin (Nystatin Oral Susp 500,000 Unit/5 Ml Oral.Susp) 500,000 unit PO QID [facility]; Protocol Last Admin: 02/17/22 12:31 Dose: 500,000 unit Documented By: WILLIS Olanzapine (Olanzapine 10 Mg Tablet) 10 mg PO BEDTIME [facility] Last Admin: 02/16/22 20:57 Dose: 10 mg Documented By: MAIK Ondansetron HCl (Ondansetron Hcl 4 Mg/2 Ml Vial) 4 mg IVPUSH Q8H PRN PRN Reason: Nausea and Vomiting Pharmacy Consult (Consult Rx Perform Med Rec) 1 each MISCELLANE ONCE PRN PRN Reason: Consult order Polyethylene Glycol (Polyethylene Glycol 3350 17 Gm Powd.Pack) 17 gm PO DAILY [facility] Last Admin: 02/17/22 08:03 Dose: 17 gm Documented By: WILLIS Prednisone (Prednisone 20 Mg Tablet) 40 mg PO DAILY [facility] Last Admin: 02/17/22 08:05 Dose: 40 mg Documented By: WILLIS Psyllium Hydrophilic Mucilloid (Psyllium Seed 3.4 Gm Powd.Pack) 3.4 gm PO DAILY [facility] Last Admin: 02/17/22 08:03 Dose: 3.4 gm Documented By: WILLIS Sodium Chloride (0.9 % Sodium Chloride Flush 3 Ml Syringe) 3 ml IVFLUSH QSHIFT [facility] Last Admin: 02/17/22 15:17 Dose: Not Given Documented By: MAIK Non-Admin Reason: Patient Refused Sodium Chloride (Sodium Chloride 0.65 % Nasal 44 Ml Sprbtl) 1 spray NOSTRIL-B Q3H PRN PRN Reason: nasal congestion Last Admin: 02/17/22 00:19 Dose: 1 spray Documented By: AGUSTÍN Tamsulosin HCl (Tamsulosin Hcl 0.4 Mg Capsule) 0.4 mg PO DAILY [facility] Last Admin: 02/17/22 08:05 Dose: 0.4 mg Documented By: WILLIS Tiotropium [place] (Tiotropium [place] 18 Mcg Cap.W.Dev) 1 puff INHALE RDAILY [facility] Last Admin: 02/17/22 12:14 Dose: Not Given Documented By: ERIC Non-Admin Reason: Patient Refused Trazodone HCl (Trazodone Hcl 100 Mg Tablet) 100 mg PO BEDTIME PRN PRN Reason: Insomnia Last Admin: 02/12/22 20:32 Dose: 100 mg Documented By: GIAN Labs CBC & Chem 7: 02/08/22 06:17 02/08/22 06:17 Labs: Laboratory Results - last 24 hr 02/17/22 15:25 COVID-19 ([facility]) Negative COVID-19 Clin Com See Note Assessment and Plan (1) COPD exacerbation: Status: Acute Plan 58-year-old male with past medical history of COPD who presents to the hospital with complaints of shortness of breath cough and sputum production found to be in COPD exacerbation Acute COPD exacerbation has dyspnea, cough, sputum production IV steroids, DuoNeb p.r.n. as well as scheduled, antibiotics titrate oxygen down to O2 level of 89-92% given his extensive history of COPD Change IV steroid to oral prednisone with slow taper by 10mg a week home o2 eval - does not qualify for supplemental oxygen Oral thrush also added nystatin for oral thush Schizophrenia will continue his home medications tobacco use disorder continue nicotine patch counseling done. DVT prophylaxis: Debra Attending Dr. Dietrich Full code Evaluated by Physical therapy-recommend short-term rehab; Disposition-to [facility] tomorrow Need for inpatient:? COPD exacerbation- require nebs, steroids IV Quality Stroke Does the patient have a stroke diagnosis?: No VTE Prior VTE?: No VTE Risk Level:: Medical - moderate - high VTE Device Contraindication: Treatment Not Indicated VTE Drug Contraindication: N/A - Med Ordered
--- NOTE | 2022-02-17 16:25 | MHC.CM.PN ---
PATIENT AGREES TO FIRST BOOSTER PRIOR TO [facility] OFFER TOMORROW FAX TO [phone] WITH REQUEST.
[2022-02-17] MEDS: OLANZapine 10 MG TABLET PO (20:55)
[2022-02-17] MEDS: hydrOXYzine HCL 10 MG TABLET PO (20:55)
[2022-02-18] VITALS (8 sets, daily range): BP systolic 113–137; BP diastolic 54–65; PULSE 88–122; RESP 16–22; TEMP 36.2–37.3; O2SAT 95–99
--- NOTE | 2022-02-18 09:18 | MHC.CLN ---
F/U DIET=REGULAR. SUPPLEMENT ENSURE BID PROVIDES ADDITIONAL 700 KCAL, 40 G PROTEIN. INTAKE APPEARS GOOD, 75-100% AT MEALS. TAKES MEGACE APPETITE STIMULANT. FOLLOW FOR WEIGHTS AND INTAKE.
--- NOTE | 2022-02-18 09:26 | PM.DS ---
DS: Providers Provider Date of Service: 02/18/22 Date of admission: 02/08/22 05:42 Date of discharge: 02/18/22 Primary care physician: APRYL Bah Consults: 02/13/22 09:52 Consult to Pulmonology Routine Consulting Provider: [facility] [place] Pulmonology Services Reason for consultation: acute repiratory failure /copd Has provider been notified: No Attending physician on discharge: Caroline Dietrich Discharging clinician: Nova Gordillo DS: Diagnosis Discharge Diagnosis (1) COPD exacerbation: Status: Acute DS: Summary Hospital Course Hospital Course: From H&P on day of admission 66-year-old male with past medical history of COPD, history of pneumothorax, schizophrenia, presents to the hospital with complaints of shortness of breath.? Patient reports his symptoms started several days ago.? He is complaining of cough, and increased sputum production.? He denies any fever but has sweats, and chills.? He denies any chest pain, no abdominal pain nausea or vomiting, no diarrhea, he has been constipated, no urinary symptoms and no lower extremity edema.? He denies any recent travel or prolonged inactivity. On arrival to the ED patient hemodynamically stable According to ED physician patient was hypoxic although no documented hypoxia in chart. Labs on arrival of significant for WBC count of 15.2, hemoglobin of 13.8, hematocrit 40.9, COVID-19 negative, chest x-ray shows chronic changes with no acute cardiopulmonary process Patient will be admitted for further management of COPD exacerbation Acute respiratory failure secondary to acute COPD exacerbation. Due to dyspnea cough increased sputum production patient was started IV antibiotics as well as systemic steroids and scheduled breathing treatments. He was also noted to have oral thrush and nystatin was added. He was seen in consultation by pulmonology who recommended his oxygen saturation goal BP 89 to 92%. He had a home oxygen evaluation did not qualify for supplemental oxygen. His oxygen saturation has been stable on room air although he frequently asks to use oxygen for comfort. He has completed course of antibiotics during hospitalization and is now stable for discharge to SNF. He was seen by Physical therapy who recommended SNF. Anticipate less than 30 day stay at SNF Time Spent with Patient Time attestation: Total time spent providing and/or coordinating discharge services: Discharge coordination time: Greater than 30 minutes Quality: Safe Use of Opioids Does Pt have an Active Cancer Diagnosis on the Problem List?: No Quality: Stroke Does the patient have a stroke diagnosis?: No Physical Exam Vital Signs: Vital Signs: Last Vital Signs Temp 99.1 F 02/18/22 08:00 Pulse 88 02/18/22 09:10 Resp 21 H 02/18/22 08:00 BP 121/54 L 02/18/22 09:10 Pulse Ox 99 02/18/22 09:10 O2 Del Method 02/18/22 08:00 O2 Flow Rate 4 02/18/22 08:00 Oxygen Flow Rate 15 02/07/22 21:28 BMI result Body Mass Index 17.7 Const: General: no acute distress, alert and awake Nutritional Appearance: thin Resp: Other: scattered wheezes Effort & Inspection: normal respiratory effort and able to speak in complete sentences Cardio: Rate: regular rate Extrem: General: Yes no pedal edema DS: Data Data Completed and Pending Labs on day of discharge: Laboratory Results - last 24 hr 02/17/22 15:25 COVID-19 ([facility]) Negative COVID-19 Clin Com See Note Discharge Plan Discharge Patient Disposition: Xfer SNF Discharge Diagnosis: COPD exacerbation Referrals: All Nicholas PA [Primary Care Provider] - 1 Week Discharge Medications: New nicotine 21 mg/24 hr Patch 24 Hour 21 mg transdermal DAILY Qty: 14 0RF ipratropium-albuterol 0.5 mg-3 mg(2.5 mg base)/3 mL solution for nebulization 3 ml inhalation Q6H Qty: 90 0RF Rx Instructions: q6h while awake prednisone 10 mg tablet See Taper PO DAILY Qty: 70 0RF Taper: Prednisone 40 mg daily for 7 Days and 0 Hour 30 mg daily for 7 Days and 0 Hour 20 mg daily for 7 Days and 0 Hour 10 mg daily for 7 Days and 0 Hour nystatin 100,000 unit/mL Suspension 500,000 unit PO QID 4 Days Qty: 80 0RF Protocol: Apply to: Apply to: swish and swallow Continued olanzapine 10 mg Tablet 10 mg PO BEDTIME acetaminophen-codeine 300-30 mg tablet 1 tab PO BID PRN (Reason: Pain) psyllium Powder 1 tbsp PO DAILY Rx Instructions: mix into at least 8 oz of water or juice before administering tamsulosin 0.4 mg Capsule 0.4 mg PO DAILY trazodone 100 mg Tablet 100 mg PO BEDTIME PRN (Reason: Insomnia) benzonatate 100 mg Capsule 100 mg PO TID PRN (Reason: Cough) fluticasone propion-salmeterol [Advair Diskus] 500-50 mcg/dose Blister With Device 1 inh INHALATION BID docusate sodium 100 mg Capsule 100 mg PO DAILY PRN (Reason: Constipation) buspirone 7.5 mg Tablet 7.5 mg PO BID folic acid 1 mg Tablet 1 mg PO DAILY gabapentin 100 mg Capsule 100 mg PO BID albuterol sulfate 90 mcg/actuation Hfa Aerosol Inhaler 2 puff INHALATION Q4-6H PRN (Reason: Wheezing) hydroxyzine HCl 10 mg Tablet 10 mg PO Q24H PRN (Reason: Anxiety) acamprosate 333 mg Tablet,Delayed Release (Dr/Ec) 333 mg PO TID tiotropium bromide 2.5 mcg/actuation Mist 2 puff INHALATION DAILY megestrol 400 mg/10 mL (10 mL) Suspension 200 mg PO BID guaifenesin 600 mg Tablet Extended Release 12hr 600 mg PO BID Discharge Orders: Discharge Order (Routine); Ordered 02/18/22 Ordered By: Caroline Dietrich Activity on Discharge: As tolerated Stand Alone Forms: Patient Portal Discharge page Care Plan Goals: see below Health Concerns: COPD exacerbation oral thrush Plan of Treatment: Goal oxygen saturation 89-92% Complete course of steroids Use Elizabeth aguila every 6 hours while awake Recommend smoking cessation, nicotine patch prescribed Continue baseline inhalers Nystatin for oral thrush- 4 more days Assessment: See discharge summary Discharge Date/Time: 02/18/22 17:40
[2022-02-18] MEDS: busPIRone HCl 5 MG TABLET 7.5 MG PO (10:14)
[2022-02-18] MEDS: guaiFENesin LA 600 MG TAB.ER.12H PO (10:14)
[2022-02-18] MEDS: Megestrol Acetate 400 MG/10 ML ORAL.SUSP 200 MG PO (10:14)
[2022-02-18] MEDS: polyethylene glycoL 3350 17 GM POWD.PACK PO (10:15)
[2022-02-18] MEDS: Nystatin Oral Susp 500,000 UNIT/5 ML ORAL.SUSP 500000 UNIT PO ×3 (10:15→16:51)
[2022-02-18] MEDS: predniSONE 20 MG TABLET 40 MG PO (10:15)
[2022-02-18] MEDS: Gabapentin 100 MG CAPSULE PO (10:15)
[2022-02-18] MEDS: Folic Acid 1 MG TABLET PO (10:15)
[2022-02-18] MEDS: Acamprosate Calcium 333 MG TABLET.DR PO ×2 (10:15→16:51)
[2022-02-18] MEDS: Loratadine 10 MG TABLET PO (10:16)
[2022-02-18] MEDS: Tamsulosin HCL 0.4 MG CAPSULE PO (10:16)
[2022-02-18] MEDS: hydrOXYzine HCL 10 MG TABLET PO (10:25)
[2022-02-18] MEDS: Nicotine 21 MG PATCH.TD24 TRANSDERMA (10:27)
[2022-02-18] MEDS: 0.9 % Sodium Chloride Flush 3 ML SYRINGE IVFLUSH ×2 (10:28→16:51)
[2022-02-18] MEDS: Albuterol Sulfate (0.083%) 2.5 MG/3 ML VIAL.NEB INHALE ×2 (12:01→14:52)
--- NOTE | 2022-02-18 12:58 | MHC.CM.PN ---
Addendum entered by Joaquina Snow 02/18/22 16:18: PT INITIALLY REFUSING TO GO BLS TRANSPORT CANCELLED. PT LATER REPORTED HE WAS NOW READY TO GO CM ASSISTED HIM IN PACKING HIS BELONGINGS AND TRANSPORT REQUESTED AGAIN IMM DELIVERED Original Note: PT RECEIVED HIS COVID-19 BOOSTER (PFIZER) HE WILL DC TO [facility] VIA S
[2022-02-18] MEDS: levoFLOXacin 500 MG TABLET PO (13:00)
[2022-02-18] MEDS: Sodium Chloride 0.65 % Nasal 44 ML SPRBTL 1 SPRAY NOSTRIL-B (17:26)
== END 2022-02-18 17:40 | disposition skilled nursing facility (03) | DRG 191 ==
LOC: HO.ED 02-08 00:07 → HO.EDOVER 02-08 05:51 → HO.S3 02-08 16:11
PROVIDERS: Internal Medicine; Nurse Practitioner Acute Care; Admitting Provider Internal Medicine; Emergency Provider Emergency Medicine; PCP Physician Assistant Medical; Responsible Provider Physician Assistant Medical; Visit Provider Hospitalist
DX: J43.9 Emphysema, unspecified (principal); Z68.1 Body mass index [BMI] 19.9 or less, adult; B37.0 Candidal stomatitis; D72.829 Elevated white blood cell count, unspecified; F20.9 Schizophrenia, unspecified; Z20.822 Contact with and (suspected) exposure to COVID-19; F17.210 Nicotine dependence, cigarettes, uncomplicated; R63.6 Underweight; Z71.6 Tobacco abuse counseling; Z79.51 Long term (current) use of inhaled steroids; Z79.899 Other long term (current) drug therapy
CPT/HCPCS: 36415; 71045; 80048; 81003; 82803; 84484; 85025; 87635; 93005; 94640; 94644; 96374; 97162; 99285; J1650; J2920; J2930; J3475

== ENCOUNTER 2022-03-16 18:57 | Emergency (ER) | payer MEDICARE, BC, SELFPAY ==
--- NOTE | ~2022-03-16 | XR_ITS ---
EXAMINATION: XR CHEST CLINICAL INFORMATION: Shortness of breath COMPARISON: Chest x-ray 02/13/2022 TECHNIQUE: Frontal view of the chest was obtained. FINDINGS: Cardiac silhouette is normal in size. Lungs are mildly hyperinflated with chronic interstitial coarsening. There is no lobar consolidation. No pleural effusion or pneumothorax. XR/XR chest 1V IMPRESSION: Stable chronic findings of the lungs.
[2022-03-16 19:06] VITALS: BP 136/82; PULSE 107; RESP 23; O2SAT 98
--- NOTE | 2022-03-16 19:20 | ED_ITS ---
HPI - SOB/Dyspnea General Chief Complaint: Dyspnea Stated Complaint: sob Time Seen by Provider: 03/16/22 19:19 Source: patient Mode of arrival: EMS History of Present Illness HPI Narrative: Patient is 66 years old with history of COPD pneumothorax schizophrenia just discharged on 02/18 for COPD exacerbation comes here for shortness of breath and constipation for last 3- 4 days says that patient unable to push stool out and because of that he feels increased shortness of breath patient on home oxygen 2 L Related Data Home Medications Medication Instructions Recorded Confirmed acamprosate 333 mg tablet,delayed 333 mg PO TID 01/25/22 02/08/22 release acetaminophen 300 mg-codeine 30 mg 1 tab PO BID PRN Pain 01/25/22 02/08/22 tablet albuterol sulfate 90 mcg/actuation 2 puff inhalation Q4-6H PRN 01/25/22 02/08/22 aerosol inhaler Wheezing benzonatate 100 mg capsule 100 mg PO TID PRN Cough 01/25/22 02/08/22 buspirone 7.5 mg tablet 7.5 mg PO BID 01/25/22 02/08/22 docusate sodium 100 mg capsule 100 mg PO DAILY PRN Constipation 01/25/2202/08 fluticasone 500 mcg-salmeterol 50 1 inh inhalation BID 01/25/22 02/08/22 mcg/dose blistr powdr for inhalation (Advair Diskus) folic acid 1 mg tablet 1 mg PO DAILY 01/25/22 02/08/22 gabapentin 100 mg capsule 100 mg PO BID 01/25/22 02/08/22 guaifenesin 600 mg tablet, 600 mg PO BID 01/25/22 02/08/22 extended release 12 hr hydroxyzine HCl 10 mg tablet 10 mg PO Q24H PRN Anxiety 01/25/22 02/08/22 megestrol 400 mg/10 mL (10 mL) 200 mg PO BID 01/25/22 02/08/22 oral suspension olanzapine 10 mg tablet 10 mg PO BEDTIME 01/25/22 02/08/22 psyllium 1 tbsp PO DAILY 01/25/22 02/08/22 tamsulosin 0.4 mg capsule 0.4 mg PO DAILY 01/25/22 02/08/22 tiotropium bromide 2.5 2 puff inhalation DAILY 01/25/22 02/08/22 mcg/actuation mist for inhalation trazodone 100 mg tablet 100 mg PO BEDTIME PRN Insomnia 01/25/22 02/08/22 Previous Rx's Medication Instructions Recorded ipratropium 0.5 mg-albuterol 3 mg 3 ml inhalation Q6H #90 mL 02/18/22 (2.5 mg base)/3 mL nebulization soln nicotine 21 mg/24 hr daily 21 mg transdermal DAILY #14 ea 02/18/22 transdermal patch nystatin 100,000 unit/mL oral 500,000 unit PO QID 4 days #80 mL 02/18/22 suspension prednisone 10 mg tablet See Taper PO DAILY #70 tabs 02/18/22 Allergies Allergy/AdvReac Type Severity Reaction Status Date / Time tree and shrub pollen Allergy Mild Rash Verified 10/28/21 06:48 [facility] Past Medical History Medical History COPD (chronic obstructive pulmonary disease) COPD (chronic obstructive pulmonary disease) Pneumonia Pneumothorax Schizophrenia Umbilical hernia Surgical History No pertinent past surgical history Family History Family History (Updated 02/08/22 @ 05:49 by Adolph Flores MD) Father CAD (coronary artery disease) Social History Social History Household Members: Other 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 Housing: Other Housing Other:: patient states he lives in the hotel Do you presently have visiting nurse or other home services: Yes Alcohol intake: current Alcohol intake frequency: a few times a month Alcohol type: beer Patient Tobacco Use Status: Current everyday Tobacco user Tobacco use type: Cigarette Cigarette Packs Per Day: 1 Cigarettes Per Day: 20.0 Second Hand Smoke Exposure: No Advance Directives: Yes Advance Directives on File: Yes Advance Directives Date on File: 03/22/21 service: No Current occupational status: 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 Oriented X3. No acute distress. Eyes: PERRLA, No Nystagmus ENT: Pharynx normal. Oral Mucosa moist Neck: Normal inspection. Neck supple. CVS: Normal heart rate and rhythm. Pulses normal. Respiratory: Mild respiratory distress decreased air entry bilaterally prolon ged expiration Abdomen: Soft and nontender. Bowel sounds are present, no mass palpable, no CVA tenderness rectal: Hard stool felt manual disimpaction was done Skin: Skin warm and dry. Normal skin color. Normal skin turgor. Extremities: No lower extremity edema. No calf tenderness Neuro: Oriented X 3. No motor deficit. No sensory deficit.No cerebellar signs , cranial nerves II-XII intact MDM - SOB/Dyspnea MDM Narrative Medical decision making narrative: After manual disimpaction patient had a good bowel movement felt much better will discharge patient home advised to continue stool softener Lab Data Attestation: I reviewed the patient's lab results. Result diagrams: 03/16/22 19:53 03/16/22 20:20 Labs: Lab Results 03/16/22 03/16/22 Range/Units 19:53 20:20 WBC 17.2 H (4.8-10.8) X10*3/uL RBC 4.87 (4.60-5.80) X10*6/uL Hgb 15.4 (14.0-18.0) g/dl Hct 45.4 (42.0-52.0) % MCV 93.2 (80.0-98.0) fL MCH 31.6 (27.0-33.0) pg MCHC 33.9 (31.0-36.0) g/dl RDW 14.7 (11.0-16.0) % Plt Count 373 (160-400) X10*3/uL MPV 9.1 L (9.4-12.4) fL Immature Gran % (Auto) 2.3 H (0.0-0.4) % Neut % (Auto) 73.4 H (45-73) % Lymph % (Auto) 13.6 L (20-40) % [place] % (Auto) 9.4 (2-11) % Eos % (Auto) 0.6 (0-4) % Baso % (Auto) 0.7 (0-2) % Lymph # (Auto) 2.4 (1.2-4.9) X10*3/uL [place] # (Auto) 1.6 H (0.1-1.2) X10*3/uL Eos # (Auto) 0.1 (0.0-0.4) X10*3/uL Baso # (Auto) 0.1 (0.0-0.2) X10*3/uL Abs Immat Gran (auto) 0.40 H (0.00-0.03) X10*3/uL Absolute Neuts (auto) 12.6 H (2.0-8.3) x10*3/uL Absolute Nucleated RBC 0.000 (0.0-0.012) X10*3/uL Nucleated RBC % (auto) 0.0 (0.0-0.2) /100WBC Smear Tech's Comments VERIFIED Sodium 136 (135-145) mmol/L Potassium 4.5 (3.3-5.1) mmol/L Chloride 112 H (96-108) mmol/L Carbon Dioxide 13 L (22-29) mmol/L Anion Gap 16 (12-20) BUN 10 D (9-16) mg/dL Creatinine 0.79 (0.5-1.4) mg/dL Estim Creat Clear Calc 89.4 Estimated GFR > 60 Random Glucose 109 (60-115) mg/dL Calcium 8.2 L (8.4-10.2) mg/dL Discharge Plan Discharge Clinical Impression: COPD (chronic obstructive pulmonary disease), Constipation Patient Disposition: Xfer C Instructions: Constipation (ED), COPD (Chronic Obstructive Pulmonary Disease) (ED) Additional Instructions: Continue treatment and stools after as prescribed Prescriptions: No Action nicotine 21 mg/24 hr Patch 24 Hour 21 mg transdermal DAILY Qty: 14 0RF ipratropium-albuterol 0.5 mg-3 mg(2.5 mg base)/3 mL solution for nebulization 3 ml inhalation Q6H Qty: 90 0RF Rx Instructions: q6h while awake prednisone 10 mg tablet See Taper PO DAILY Qty: 70 0RF Taper: Prednisone 40 mg daily for 7 Days and 0 Hour 30 mg daily for 7 Days and 0 Hour 20 mg daily for 7 Days and 0 Hour 10 mg daily for 7 Days and 0 Hour nystatin 100,000 unit/mL Suspension 500,000 unit PO QID 4 Days Qty: 80 0RF Protocol: Apply to: Apply to: swish and swallow olanzapine 10 mg Tablet 10 mg PO BEDTIME acetaminophen-codeine 300-30 mg tablet 1 tab PO BID PRN (Reason: Pain) psyllium Powder 1 tbsp PO DAILY Rx Instructions: mix into at least 8 oz of water or juice before administering tamsulosin 0.4 mg Capsule 0.4 mg PO DAILY trazodone 100 mg Tablet 100 mg PO BEDTIME PRN (Reason: Insomnia) benzonatate 100 mg Capsule 100 mg PO TID PRN (Reason: Cough) fluticasone propion-salmeterol [Advair Diskus] 500-50 mcg/dose Blister With Device 1 inh INHALATION BID docusate sodium 100 mg Capsule 100 mg PO DAILY PRN (Reason: Constipation) buspirone 7.5 mg Tablet 7.5 mg PO BID folic acid 1 mg Tablet 1 mg PO DAILY gabapentin 100 mg Capsule 100 mg PO BID albuterol sulfate 90 mcg/actuation Hfa Aerosol Inhaler 2 puff INHALATION Q4-6H PRN (Reason: Wheezing) hydroxyzine HCl 10 mg Tablet 10 mg PO Q24H PRN (Reason: Anxiety) acamprosate 333 mg Tablet,Delayed Release (Dr/Ec) 333 mg PO TID tiotropium bromide 2.5 mcg/actuation Mist 2 puff INHALATION DAILY megestrol 400 mg/10 mL (10 mL) Suspension 200 mg PO BID guaifenesin 600 mg Tablet Extended Release 12hr 600 mg PO BID Interventions: ED Discharge Assessment Last Done: 03/16/22 22:52 Discharge Date/Time: 03/16/22 22:54
[2022-03-16 19:28] VITALS: PULSE 118; O2SAT 94; BMI 23.6
[2022-03-16] MEDS: Albuterol Sulfate (0.083%) 2.5 MG/3 ML VIAL.NEB 5 MG INHALE (19:59)
[2022-03-16 20:02] VITALS: PULSE 109; RESP 18; O2SAT 98
[2022-03-16] MEDS: LORazepam 1 MG TABLET PO (20:15)
[2022-03-16] MEDS: Milk of Magnesia 30 ML ORAL.SUSP PO (20:15)
[2022-03-16] MEDS: bisacodyL 5 MG TABLET.DR 10 MG PO (20:15)
[2022-03-16] MEDS: methylPREDNISolone Sod Succ 125 MG/2 ML VIAL IVPUSH (20:15)
[2022-03-16 20:23] LABS: Basophils Absolute Auto 0.1 X10*3/uL (0.0-0.2); Basophils Percent Auto 0.7 % (0-2); Eosinophils Absolute Auto 0.1 X10*3/uL (0.0-0.4); Eosinophils Percent Auto 0.6 % (0-4); Hematocrit 45.4 % (42.0-52.0); Hemoglobin 15.4 g/dl (14.0-18.0); Imm Gran Pct Auto 2.3 % (0.0-0.4); Lymphocytes Absolute Auto 2.4 X10*3/uL (1.2-4.9); Lymphocytes Percent Auto 13.6 % (20-40); MANUAL DIFF FLAG SCAN; Mean Corpuscular HGB Conc 33.9 g/dl (31.0-36.0); Mean Corpuscular Hemoglobin 31.6 pg (27.0-33.0); Mean Corpuscular Volume 93.2 fL (80.0-98.0); Mean Platelet Volume 9.1 fL (9.4-12.4); Monocytes Absolute Auto 1.6 X10*3/uL (0.1-1.2); Monocytes Percent Auto 9.4 % (2-11); Neutrophils Absolute Auto 12.6 x10*3/uL (2.0-8.3); Neutrophils Percent Auto 73.4 % (45-73); Platelet Count 373 X10*3/uL (160-400); Red Blood Count 4.87 X10*6/uL (4.60-5.80); Red Cell Distribution Width 14.7 % (11.0-16.0); SCAN SMEAR FLAG 1; White Blood Count 17.2 X10*3/uL (4.8-10.8)
[2022-03-16 20:57] LABS: Anion Gap 16 (12-20); Blood Urea Nitrogen 10 mg/dL (9-16); Calcium 8.2 mg/dL (8.4-10.2); Carbon Dioxide 13 mmol/L (22-29); Chloride 112 mmol/L (96-108); Creatinine Clr Calc Pharmacy 89.4; Estimated Glomerular Filt Rate > 60; Glucose Random 109 mg/dL (60-115); Potassium 4.5 mmol/L (3.3-5.1); Sodium 136 mmol/L (135-145)
[2022-03-16 21:14] LABS: SLIDE REVIEW VERIFIED
== END 2022-03-16 22:54 ==
PROVIDERS: Emergency Provider Internal Medicine; PCP Physician Assistant Medical
DX: J44.1 Chronic obstructive pulmonary disease with (acute) exacerbation (principal); R06.02 Shortness of breath; K59.00 Constipation, unspecified; F17.210 Nicotine dependence, cigarettes, uncomplicated; Z71.6 Tobacco abuse counseling; Z79.899 Other long term (current) drug therapy
CPT/HCPCS: 36415; 71045; 80048; 85025; 94640; 94644; 96374; 99284; J2930

== ENCOUNTER 2022-04-19 00:13 | Inpatient (IN) | payer OTHER, MEDICARE, BC, SELFPAY ==
[2022-04-19] VITALS (11 sets, daily range): BP systolic 123–184; BP diastolic 60–80; PULSE 91–120; RESP 16–28; TEMP 36.9; O2SAT 92–100; BMI 22.1
--- NOTE | ~2022-04-19 | XR_ITS ---
EXAMINATION: XR CHEST CLINICAL INFORMATION: Hypoxia, increased work of breathing COMPARISON: 03/16/2022 TECHNIQUE: Frontal view of the chest was obtained. FINDINGS: The lungs are hyperinflated, suspicious for underlying COPD. There is blunting of the left costophrenic angle suggesting small pleural effusion. No focal consolidation is seen. No evidence of pneumothorax or overt pulmonary edema. The cardiomediastinal contour is unremarkable. No acute osseous findings are seen. XR/XR chest 1V IMPRESSION: Suspect small left pleural effusion. Hyperinflated lungs suspicious for COPD.
--- NOTE | 2022-04-19 00:16 | ECG_ITS ---
Test Reason : SOB Blood Pressure : / mmHG Vent. Rate : 111 BPM Atrial Rate : 111 BPM P-R Int : 124 ms QRS Dur : 074 ms QT Int : 334 ms P-R-T Axes : 088 070 081 degrees QTc Int : 454 ms Sinus tachycardia with Premature atrial complexes Otherwise normal ECG When compared with ECG of 07-FEB-2022 21:37, Premature atrial complexes are now Present T wave inversion no longer evident in Anterior leads T wave amplitude has decreased in Lateral leads Heart rate has increased Referred By: Wanda Guerra Electronically Signed By:JANIS STUART
--- NOTE | 2022-04-19 00:24 | ED.SOB ---
HPI - SOB/Dyspnea General Chief Complaint: Dyspnea Stated Complaint: SOB Time Seen by Provider: 04/19/22 00:16 Source: patient, EMS and old records reviewed Limitations: physical limitation (increased WOB) History of Present Illness HPI Narrative: 58-year-old male with history of advanced COPD, schizophrenia, history of pneumothorax, active smoker who presents to the ER from home via EMS for evaluation of acute onset shortness of breath. Patient states he was taking a nap when he suddenly woke up very short of breath, working to breathe about 1 hour ago. He states he is on oxygen at home and uses anywhere from 2-8 L depending on what he needs. EMS found the patient on 2 L nasal cannula with increased respiratory rate and increased work of breathing. He refused IV placement, he refused nebulizer treatment and he refused CPAP. He denies any fever, chills. He states he has a productive cough, but cannot say when it started. He admits to ongoing smoking as well. History is limited on arrival due to increased WOB. MD elicited complaint: shortness of breath Pertinent past history: COPD Onset (ago): hour(s) (1) Timing: progressively worsening Severity: severe Exacerbating factors: movement, coughing and talking Relieving factors: oxygen, bronchodilators and upright position Known history of: COPD Associated symptoms: pain with inspiration, cough and wheezing Treatment prior to arrival: oxygen Related Data Home Medications Medication Instructions Recorded Confirmed acamprosate 333 mg tablet,delayed 333 mg PO TID 01/25/22 02/08/22 release acetaminophen 300 mg-codeine 30 mg 1 tab PO BID PRN Pain 01/25/22 02/08/22 tablet albuterol sulfate 90 mcg/actuation 2 puff inhalation Q4-6H PRN 01/25/22 02/08/22 aerosol inhaler Wheezing benzonatate 100 mg capsule 100 mg PO TID PRN Cough 01/25/22 02/08/22 buspirone 7.5 mg tablet 7.5 mg PO BID 01/25/22 02/08/22 docusate sodium 100 mg capsule 100 mg PO DAILY PRN Constipation 01/25/22 02/08/22 fluticasone 500 mcg-salmeterol 50 1 inh inhalation BID 01/25/22 02/08/22 mcg/dose blistr powdr for inhalation (Advair Diskus) folic acid 1 mg tablet 1 mg PO DAILY 01/25/22 02/08/22 gabapentin 100 mg capsule 100 mg PO BID 01/25/22 02/08/22 guaifenesin 600 mg tablet, 600 mg PO BID 01/25/22 02/08/22 extended release 12 hr hydroxyzine HCl 10 mg tablet 10 mg PO Q24H PRN Anxiety 01/25/22 02/08/22 megestrol 400 mg/10 mL (10 mL) 200 mg PO BID 01/25/22 02/08/22 oral suspension olanzapine 10 mg tablet 10 mg PO BEDTIME 01/25/22 02/08/22 psyllium 1 tbsp PO DAILY 01/25/22 02/08/22 tamsulosin 0.4 mg capsule 0.4 mg PO DAILY 01/25/22 02/08/22 tiotropium bromide 2.5 2 puff inhalation DAILY 01/25/22 02/08/22 mcg/actuation mist for inhalation trazodone 100 mg tablet 100 mg PO BEDTIME PRN Insomnia 01/25/22 02/08/22 Previous Rx's Medication Instructions Recorded ipratropium 0.5 mg-albuterol 3 mg 3 ml inhalation Q6H #90 mL 02/18/22 (2.5 mg base)/3 mL nebulization soln nicotine 21 mg/24 hr daily 21 mg transdermal DAILY #14 ea 02/18/22 transdermal patch nystatin 100,000 unit/mL oral 500,000 unit PO QID 4 days #80 mL 02/18/22 suspension prednisone 10 mg tablet See Taper PO DAILY #70 tabs 02/18/22 Allergies Allergy/AdvReac Type Severity Reaction Status Date / Time tree and shrub pollen Allergy Mild Rash Verified 04/19/22 00:23 Review of Systems Review of Systems: Constitutional: No Fever, + Chills ENT/Mouth: No sore throat, No Rhinorrhea, No Swallowing Difficulty Eyes: No Eye Pain, No Swelling, No Redness Cardiovascular: + Chest Pain, + SOB, + Orthopnea, No Edema Respiratory: + Cough, + Sputum, + Wheezing, + dyspnea Gastrointestinal: No Nausea, No Vomiting, No Diarrhea, No abdominal Pain, No Hematochezia, No Melena Genitourinary: No Dysuria, No Urinary Frequency, No Hematuria Musculoskeletal: No joint pain, No Myalgias Skin: No Skin Lesions, No rash Neuro: + Weakness, No Numbness, No Dizziness, No Headache Psych: No Anxiety/Panic, No Depression Heme/Lymph: No Bruising, No Lymphadenopathy Endocrine: No Polyuria, No Polydipsia [facility] Past Medical History Medical History COPD (chronic obstructive pulmonary disease) COPD (chronic obstructive pulmonary disease) Emphysema lung Pneumonia Pneumothorax Right inguinal hernia Schizophrenia Smoker in home Umbilical hernia Surgical History No pertinent past surgical history Family History Family History (Updated 02/08/22 @ 05:49 by Adolph Flores MD) Father CAD (coronary artery disease) Social History Social History Household Members: Other 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 Housing: Other Housing Other:: patient states he lives in the hotel Do you presently have visiting nurse or other home services: Yes Alcohol intake: current Alcohol intake frequency: a few times a month Alcohol type: beer Patient Tobacco Use Status: Current everyday Tobacco user Tobacco use type: Cigarette Cigarette Packs Per Day: 1 Cigarettes Per Day: 20.0 Second Hand Smoke Exposure: No Advance Directives: Yes Advance Directives on File: Yes Advance Directives Date on File: 03/22/21 service: No 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 ENT: Pharynx normal. Neck: Normal inspection. Neck supple. CVS: Tachycardic, regular rhythm Pulses normal. Respiratory: Moderate respiratory distress with respiratory rate 30, positive accessory muscle use. Breath sounds diminished throughout, inspiratory expiratory wheezes at the bases, poor air movement. Abdomen: Soft and nontender. +BS x4 Skin: Skin warm and dry. Normal skin color. Normal skin turgor. No rashes. Extremities: No lower extremity edema. No calf tenderness. Neuro: Awake and alert, moves all extremities, follows simple commands, nonfocal Course Course Course Narrative: 66-year-old male with history of advanced COPD, active smoker, schizophrenia who presents to the ER for evaluation of acute onset of shortness of breath and increased work of breathing about 1 hour prior to arrival. He states the shortness of breath will come from his nap. He denies any history of heart failure or orthopnea in the past. He has a productive cough. On arrival to the ER he is tachypneic with increased work of breathing, accessory muscle use present. He is saturating well on 2 L nasal cannula. He is unable to speak in full sentences due to his respiratory distress. He is in agreement to IV placement, nebulizer treatment, trial of BiPAP for work of breathing. Anticipate admission Reevaluation(s) Reevaluation #1: After 1st nebulizer treatment, patient continues have increased work of breathing. He is saying he can not breathe. He is refusing CPAP, wants something to do with even trying the mask. He is willing to trial high-flow. Will repeat nebulizer treatment. He reports he is a full code and will want intubation if necessary. Reevaluation #2: Lab workup revealing a leukocytosis of 14.1. Lactic acid is normal. Other lab work is unremarkable. EKG without ischemic changes. X-ray showing a very small left side which she has had in the is a findings COPD with hyperinflation but no focal pneumonia. Will cover for COPD exacerbation with Rocephin as well. Given his exam and lung sounds, doubt PE. Will reassess after 2nd neb. Reevaluation #3: Looks much better on 40% FiO2 hiflow nasal cannula. getting 2nd neb in line with good effect. will plan for admission. MDM - SOB/Dyspnea Medical Records Attestation: I reviewed the patient's medical records. Lab Data Attestation: I reviewed the patient's lab results. Result diagrams: 04/19/22 00:30 04/19/22 00:30 Labs: Lab Results 04/19/22 04/19/22 04/19/22 Range/Units 00:30 00:30 00:30 WBC 14.1 H (4.8-10.8) X10*3/uL RBC 4.84 (4.60-5.80) X10*6/uL Hgb 15.2 (14.0-18.0) g/dl Hct 45.3 (42.0-52.0) % MCV 93.6 (80.0-98.0) fL MCH 31.4 (27.0-33.0) pg MCHC 33.6 (31.0-36.0) g/dl RDW 13.1 (11.0-16.0) % Plt Count 404 H (160-400) X10*3/uL MPV 8.7 L (9.4-12.4) fL Immature Gran % (Auto) 0.4 (0.0-0.4) % Neut % (Auto) 62.9 (45-73) % Lymph % (Auto) 25.9 (20-40) % [place] % (Auto) 7.5 (2-11) % Eos % (Auto) 2.5 (0-4) % Baso % (Auto) 0.8 (0-2) % Lymph # (Auto) 3.6 (1.2-4.9) X10*3/uL [place] # (Auto) 1.1 (0.1-1.2) X10*3/uL Eos # (Auto) 0.4 (0.0-0.4) X10*3/uL Baso # (Auto) 0.1 (0.0-0.2) X10*3/uL Abs Immat Gran (auto) 0.06 H (0.00-0.03) X10*3/uL Absolute Neuts (auto) 8.9 H (2.0-8.3) x10*3/uL Absolute Nucleated RBC 0.000 (0.0-0.012) X10*3/uL Nucleated RBC % (auto) 0.0 (0.0-0.2) /100WBC PT (10.0-13.1) SEC INR (0.9-1.1) APTT (26.0-36.4) SEC VBG pH (7.32-7.43) VBG pCO2 mmHg VBG pO2 mmHg VBG HCO3 (22-26) mmol/L VBG O2 Saturation % VBG Base Excess mmol/L Sodium 138 (135-145) mmol/L Potassium 4.4 (3.3-5.1) mmol/L Chloride 103 (96-108) mmol/L Carbon Dioxide 23 (22-29) mmol/L Anion Gap 16 (12-20) BUN 5 L (9-16) mg/dL Creatinine 0.71 (0.5-1.4) mg/dL Estim Creat Clear Calc 95.8 Estimated GFR > 60 Random Glucose 89 (60-115) mg/dL Lactic Acid (0.5-2.0) mmol/L Calcium 9.4 D (8.4-10.2) mg/dL Magnesium 2.2 (1.6-2.6) mg/dL Total Bilirubin 0.5 (0.0-1.0) mg/dL Direct Bilirubin 0.2 (0.0-0.5) mg/dL AST 23 (5-37) U/L ALT 25 (0-40) U/L Alkaline Phosphatase 108 D (39-117) U/L Troponin I High Sens < 3.5 D (<3.5-35.0) ng/L B-Natriuretic Peptide 26 (<100) pg/mL Total Protein 6.7 (6.5-8.0) g/dL Albumin 3.9 (3.5-5.0) g/dL Ethyl Alcohol < 10 mg/dL COVID-19 ([facility]) (Negative) COVID-19 Clin Com 04/19/22 04/19/22 04/19/22 Range/Units 00:30 00:36 00:42 WBC (4.8-10.8) X10*3/uL RBC (4.60-5.80) X10*6/uL Hgb (14.0-18.0) g/dl Hct (42.0-52.0) % MCV (80.0-98.0) fL MCH (27.0-33.0) pg MCHC (31.0-36.0) g/dl RDW (11.0-16.0) % Plt Count (160-400) X10*3/uL MPV (9.4-12.4) fL Immature Gran % (Auto) (0.0-0.4) % Neut % (Auto) (45-73) % Lymph % (Auto) (20-40) % [place] % (Auto) (2-11) % Eos % (Auto) (0-4) % Baso % (Auto) (0-2) % Lymph # (Auto) (1.2-4.9) X10*3/uL [place] # (Auto) (0.1-1.2) X10*3/uL Eos # (Auto) (0.0-0.4) X10*3/uL Baso # (Auto) (0.0-0.2) X10*3/uL Abs Immat Gran (auto) (0.00-0.03) X10*3/uL Absolute Neuts (auto) (2.0-8.3) x10*3/uL Absolute Nucleated RBC (0.0-0.012) X10*3/uL Nucleated RBC % (auto) (0.0-0.2) /100WBC PT (10.0-13.1) SEC INR (0.9-1.1) APTT (26.0-36.4) SEC VBG pH 7.39 (7.32-7.43) VBG pCO2 42 mmHg VBG pO2 34 mmHg VBG HCO3 25 (22-26) mmol/L VBG O2 Saturation 56.0 % VBG Base Excess 0.7 mmol/L Sodium (135-145) mmol/L Potassium (3.3-5.1) mmol/L Chloride (96-108) mmol/L Carbon Dioxide (22-29) mmol/L Anion Gap (12-20) BUN (9-16) mg/dL Creatinine (0.5-1.4) mg/dL Estim Creat Clear Calc Estimated GFR Random Glucose (60-115) mg/dL Lactic Acid 0.6 (0.5-2.0) mmol/L Calcium (8.4-10.2) mg/dL Magnesium (1.6-2.6) mg/dL Total Bilirubin (0.0-1.0) mg/dL Direct Bilirubin (0.0-0.5) mg/dL AST (5-37) U/L ALT (0-40) U/L Alkaline Phosphatase (39-117) U/L Troponin I High Sens (<3.5-35.0) ng/L B-Natriuretic Peptide (<100) pg/mL Total Protein (6.5-8.0) g/dL Albumin (3.5-5.0) g/dL Ethyl Alcohol mg/dL COVID-19 ([facility]) Negative (Negative) COVID-19 Clin Com See Note 04/19/22 Range/Units 00:42 WBC (4.8-10.8) X10*3/uL RBC (4.60-5.80) X10*6/uL Hgb (14.0-18.0) g/dl Hct (42.0-52.0) % MCV (80.0-98.0) fL MCH (27.0-33.0) pg MCHC (31.0-36.0) g/dl RDW (11.0-16.0) % Plt Count (160-400) X10*3/uL MPV (9.4-12.4) fL Immature Gran % (Auto) (0.0-0.4) % Neut % (Auto) (45-73) % Lymph % (Auto) (20-40) % [place] % (Auto) (2-11) % Eos % (Auto) (0-4) % Baso % (Auto) (0-2) % Lymph # (Auto) (1.2-4.9) X10*3/uL [place] # (Auto) (0.1-1.2) X10*3/uL Eos # (Auto) (0.0-0.4) X10*3/uL Baso # (Auto) (0.0-0.2) X10*3/uL Abs Immat Gran (auto) (0.00-0.03) X10*3/uL Absolute Neuts (auto) (2.0-8.3) x10*3/uL Absolute Nucleated RBC (0.0-0.012) X10*3/uL Nucleated RBC % (auto) (0.0-0.2) /100WBC PT 11.7 (10.0-13.1) SEC INR 1.0 (0.9-1.1) APTT 32.5 (26.0-36.4) SEC VBG pH (7.32-7.43) VBG pCO2 mmHg VBG pO2 mmHg VBG HCO3 (22-26) mmol/L VBG O2 Saturation % VBG Base Excess mmol/L Sodium (135-145) mmol/L Potassium (3.3-5.1) mmol/L Chloride (96-108) mmol/L Carbon Dioxide (22-29) mmol/L Anion Gap (12-20) BUN (9-16) mg/dL Creatinine (0.5-1.4) mg/dL Estim Creat Clear Calc Estimated GFR Random Glucose (60-115) mg/dL Lactic Acid (0.5-2.0) mmol/L Calcium (8.4-10.2) mg/dL Magnesium (1.6-2.6) mg/dL Total Bilirubin (0.0-1.0) mg/dL Direct Bilirubin (0.0-0.5) mg/dL AST (5-37) U/L ALT (0-40) U/L Alkaline Phosphatase (39-117) U/L Troponin I High Sens (<3.5-35.0) ng/L B-Natriuretic Peptide (<100) pg/mL Total Protein (6.5-8.0) g/dL Albumin (3.5-5.0) g/dL Ethyl Alcohol mg/dL COVID-19 ([facility]) (Negative) COVID-19 Clin Com ECG Data Attestation: I personally reviewed and interpreted this ECG as follows: ECG interpretation date: 04/19/22 ECG interpretation time: 01:02 Prior ECG tracings: available for review Interpretation: sinus tachycardia, HR 111, PAC's present, norm[place] interval, no ST segment elevations or depressions Critical Care Time Critical Care Time Critical Care Time: Yes Total Critical Care Time: 44 Attestation: I have personally provided critical care time exclusive of time spent on separately billable procedures. Time includes review of lab data, radiology results, discussion with consultants, and monitoring for potential decompensation. Intervention performed as documented. Discharge Plan Discharge Clinical Impression: Acute exacerbation of chronic obstructive airways disease Patient Disposition: Admitted As Inpatient
[2022-04-19] MEDS: Albuterol Sulfate (0.083%) 2.5 MG/3 ML VIAL.NEB 10 MG INHALE ×2 (00:33→01:47)
[2022-04-19 00:35] LABS: MANUAL DIFF FLAG NO
[2022-04-19 00:38] LABS: Basophils Absolute Auto 0.1 X10*3/uL (0.0-0.2); Basophils Percent Auto 0.8 % (0-2); Eosinophils Absolute Auto 0.4 X10*3/uL (0.0-0.4); Eosinophils Percent Auto 2.5 % (0-4); Hematocrit 45.3 % (42.0-52.0); Hemoglobin 15.2 g/dl (14.0-18.0); Imm Gran Abs Auto 0.06 X10*3/uL (0.00-0.03); Imm Gran Pct Auto 0.4 % (0.0-0.4); Lymphocytes Absolute Auto 3.6 X10*3/uL (1.2-4.9); Lymphocytes Percent Auto 25.9 % (20-40); Mean Corpuscular HGB Conc 33.6 g/dl (31.0-36.0); Mean Corpuscular Hemoglobin 31.4 pg (27.0-33.0); Mean Corpuscular Volume 93.6 fL (80.0-98.0); Mean Platelet Volume 8.7 fL (9.4-12.4); Monocytes Absolute Auto 1.1 X10*3/uL (0.1-1.2); Monocytes Percent Auto 7.5 % (2-11); Neutrophils Absolute Auto 8.9 x10*3/uL (2.0-8.3); Neutrophils Percent Auto 62.9 % (45-73); Platelet Count 404 X10*3/uL (160-400); Red Blood Count 4.84 X10*6/uL (4.60-5.80); Red Cell Distribution Width 13.1 % (11.0-16.0); White Blood Count 14.1 X10*3/uL (4.8-10.8)
[2022-04-19 00:53] LABS: COVID-19 Test Negative (Negative)
[2022-04-19 00:54] LABS: VBG Base Excess 0.7 mmol/L; VBG HCO3 25 mmol/L (22-26); VBG pCO2 42 mmHg; VBG pH 7.39 (7.32-7.43); VBG pO2 34 mmHg
[2022-04-19 00:54] LABS: Prothrombin Time 11.7 SEC (10.0-13.1)
[2022-04-19 00:56] LABS: Partial Thromboplastin Time 32.5 SEC (26.0-36.4)
[2022-04-19 00:57] LABS: Venous Blood Gas Refer to POC result
[2022-04-19 01:01] LABS: Alanine Aminotransferase 25 U/L (0-40); Albumin Level 3.9 g/dL (3.5-5.0); Alkaline Phosphatase 108 U/L (39-117); Anion Gap 16 (12-20); Aspartate Amino Transferase 23 U/L (5-37); Bilirubin Direct 0.2 mg/dL (0.0-0.5); Bilirubin Total 0.5 mg/dL (0.0-1.0); Blood Urea Nitrogen 5 mg/dL (9-16); Calcium 9.4 mg/dL (8.4-10.2); Carbon Dioxide 23 mmol/L (22-29); Chloride 103 mmol/L (96-108); Creatinine Clr Calc Pharmacy 95.8; Estimated Glomerular Filt Rate > 60; Ethanol < 10 mg/dL; Glucose Random 89 mg/dL (60-115); Magnesium 2.2 mg/dL (1.6-2.6); Potassium 4.4 mmol/L (3.3-5.1); Sodium 138 mmol/L (135-145); Total Protein 6.7 g/dL (6.5-8.0)
[2022-04-19 01:01] LABS: Lactic Acid 0.6 mmol/L (0.5-2.0)
[2022-04-19 01:07] LABS: B Type Natriuretic Peptide 26 pg/mL (<100); Troponin-I High Sensitivity < 3.5 ng/L (<3.5-35.0)
[2022-04-19] MEDS: methylPREDNISolone Sod Succ 125 MG/2 ML VIAL IVPUSH (01:20)
[2022-04-19] MEDS: Magnesium Sulfate/H2O 2 GM/50 ML PIGGYBACK IV (01:20)
[2022-04-19] MEDS: cefTRIAXone sodium 1 GM in 0.9 % Sodium Chloride 50 ML IV (01:34)
[2022-04-19] MEDS: Azithromycin 500 MG in 0.9 % Sodium Chloride 250 ML 125 MG IV (01:53)
--- NOTE | 2022-04-19 03:13 | P.HPHOSP_ITS ---
History of Present Illness Date of Service: 04/19/22 Chief Complaint: COPD exacerbation 58-year-old male with past medical history of advanced COPD oxygen dependent on between 2-8 L , schizophrenia, history of pneumothorax, was an active smoker presents the hospital with complaints of acute shortness of breath. patient is sleeping and refusing to talk to me, I have asked him multiple times to wake up and give me a history and he just grounds and turns his face. He has been on pleasant to even nurses calling 1 of the nurses bitch but otherwise not agitated. therefore history is obtained from ED PA. patient reports that he became short of breath on waking up about an hour ago, he is also complaining of a productive cough but he did not say when it started. EMS found the patient to be hypoxic and had increased respiratory rate but he refused IV placement and nebulizer treatment and CPAP by EMS. Right now he is on high-flow nasal cannula satting 98%. unable to obtain review of system Vitals on arrival shows HR 110s and elevated bp labs are significant for WBC count of 14.1 otherwise unremarkable COVID-19 negative VBG shows a pH of 7.39 with no CO2 retention, chest x-ray shows small left pleural effusion with evidence of COPD Review of Systems Review of Systems: Yes all other systems are reviewed and are negative [facility] Medical History COPD (chronic obstructive pulmonary disease) COPD (chronic obstructive pulmonary disease) Emphysema lung Pneumonia Pneumothorax Right inguinal hernia Schizophrenia Smoker in home Umbilical hernia Family History Father CAD (coronary artery disease) Surgical History No pertinent past surgical history Social History Household Members: Other 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 Housing: Other Housing Other:: patient states he lives in the hotel Do you presently have visiting nurse or other home services: Yes Alcohol intake: current Alcohol intake frequency: a few times a month Alcohol type: beer Patient Tobacco Use Status: Current everyday Tobacco user Tobacco use type: Cigarette Cigarette Packs Per Day: 1 Cigarettes Per Day: 20.0 Second Hand Smoke Exposure: No Advance Directives: Yes Advance Directives on File: Yes Advance Directives Date on File: 03/22/21 service: No Current occupational status: 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 Meds Allergies Allergy/AdvReac Type Severity Reaction Status Date / Time tree and shrub pollen Allergy Mild Rash Verified 04/19/22 00:23 Active Medications: Current Medications Azithromycin 500 mg/ Sodium (Chloride) 250 mls @ 125 mls/hr IV ONCE ONE Stop: 04/19/22 03:18 Last Admin: 04/19/22 01:53 Dose: 125 mls/hr Home Medications Medication Instructions Recorded Confirmed Last Taken Type acamprosate 333 mg tablet,delayed 333 mg PO TID 01/25/22 02/08/22 Unknown History release acetaminophen 300 mg-codeine 30 mg 1 tab PO BID PRN Pain 01/25/22 02/08/22 Unknown History tablet albuterol sulfate 90 mcg/actuation 2 puff inhalation Q4-6H PRN 01/25/22 02/08/22 Unknown History aerosol inhaler Wheezing benzonatate 100 mg capsule 100 mg PO TID PRN Cough 01/25/22 02/08/22 Unknown History buspirone 7.5 mg tablet 7.5 mg PO BID 01/25/22 02/08/22 Unknown History docusate sodium 100 mg capsule 100 mg PO DAILY PRN Constipation 01/25/22 02/08/22 Unknown History fluticasone 500 mcg-salmeterol 50 1 inh inhalation BID 01/25/22 02/08/22 Unknown History mcg/dose blistr powdr for inhalation (Advair Diskus) folic acid 1 mg tablet 1 mg PO DAILY 01/25/22 02/08/22 Unknown History gabapentin 100 mg capsule 100 mg PO BID 01/25/22 02/08/22 Unknown History guaifenesin 600 mg tablet, 600 mg PO BID 01/25/22 02/08/22 Unknown History extended release 12 hr hydroxyzine HCl 10 mg tablet 10 mg PO Q24H PRN Anxiety 01/25/22 02/08/22 Unknown History megestrol 400 mg/10 mL (10 mL) 200 mg PO BID 01/25/22 02/08/22 Unknown History oral suspension olanzapine 10 mg tablet 10 mg PO BEDTIME 01/25/22 02/08/22 Unknown History psyllium 1 tbsp PO DAILY 01/25/22 02/08/22 Unknown History tamsulosin 0.4 mg capsule 0.4 mg PO DAILY 01/25/22 02/08/22 Unknown History tiotropium bromide 2.5 2 puff inhalation DAILY 01/25/22 02/08/22 Unknown History mcg/actuation mist for inhalation trazodone 100 mg tablet 100 mg PO BEDTIME PRN Insomnia 01/25/22 02/08/22 Unknown History Physical Exam Vital Signs and Narrative: Vital Signs: Last Vital Signs Temp 98.4 F 04/19/22 02:00 Pulse 98 04/19/22 02:00 Resp 16 04/19/22 02:00 BP 161/62 H 04/19/22 02:00 Pulse Ox 98 04/19/22 02:00 O2 Del Method 04/19/22 02:00 O2 Flow Rate 3 04/19/22 01:18 Oxygen Flow Rate 2 04/19/22 00:20 BMI result Body Mass Index 22.1 Const: Other: unable to conduct complete exam as pt not cooperating. Eyes: General: appearance normal, both eyes and all related structures Resp: Other: not cooperating Effort & Inspection: normal respiratory effort Cardio: Rate: regular rate Rhythm: regular rhythm Extrem: General: Yes no pedal edema Results Labs CBC and Chem 7: 04/19/22 00:30 04/19/22 00:30 Labs: Laboratory Results - last 24 hr 04/19/22 04/19/22 04/19/22 00:30 00:30 00:30 MCV 93.6 MCH 31.4 MCHC 33.6 RDW 13.1 Plt Count 404 H MPV 8.7 L Immature Gran % (Auto) 0.4 Neut % (Auto) 62.9 Lymph % (Auto) 25.9 [place] % (Auto) 7.5 Eos % (Auto) 2.5 Baso % (Auto) 0.8 Lymph # (Auto) 3.6 [place] # (Auto) 1.1 Eos # (Auto) 0.4 Baso # (Auto) 0.1 Abs Immat Gran (auto) 0.06 H Absolute Neuts (auto) 8.9 H Absolute Nucleated RBC 0.000 Nucleated RBC % (auto) 0.0 PT INR APTT VBG pH VBG pCO2 VBG pO2 VBG HCO3 VBG O2 Saturation VBG Base Excess Anion Gap 16 Estim Creat Clear Calc 95.8 Estimated GFR > 60 Random Glucose 89 Lactic Acid Calcium 9.4 D Magnesium 2.2 Total Bilirubin 0.5 Direct Bilirubin 0.2 AST 23 ALT 25 Alkaline Phosphatase 108 D B-Natriuretic Peptide 26 Total Protein 6.7 Albumin 3.9 Ethyl Alcohol < 10 COVID-19 ([facility]) COVID-19 Clin Com 04/19/22 04/19/22 04/19/22 00:30 00:36 00:42 MCV MCH MCHC RDW Plt Count MPV Immature Gran % (Auto) Neut % (Auto) Lymph % (Auto) [place] % (Auto) Eos % (Auto) Baso % (Auto) Lymph # (Auto) [place] # (Auto) Eos # (Auto) Baso # (Auto) Abs Immat Gran (auto) Absolute Neuts (auto) Absolute Nucleated RBC Nucleated RBC % (auto) PT INR APTT VBG pH 7.39 VBG pCO2 42 VBG pO2 34 VBG HCO3 25 VBG O2 Saturation 56.0 VBG Base Excess 0.7 Anion Gap Estim Creat Clear Calc Estimated GFR Random Glucose Lactic Acid 0.6 Calcium Magnesium Total Bilirubin Direct Bilirubin AST ALT Alkaline Phosphatase B-Natriuretic Peptide Total Protein Albumin Ethyl Alcohol COVID-19 ([facility]) Negative COVID-19 [facility]ap Com See Note 04/19/22 00:42 MCV MCH MCHC RDW Plt Count MPV Immature Gran % (Auto) Neut % (Auto) Lymph % (Auto) [place] % (Auto) Eos % (Auto) Baso % (Auto) Lymph # (Auto) [place] # (Auto) Eos # (Auto) Baso # (Auto) Abs Immat Gran (auto) Absolute Neuts (auto) Absolute Nucleated RBC Nucleated RBC % (auto) PT 11.7 INR 1.0 APTT 32.5 VBG pH VBG pCO2 VBG pO2 VBG HCO3 VBG O2 Saturation VBG Base Excess Anion Gap Estim Creat Clear Calc Estimated GFR Random Glucose Lactic Acid Calcium Magnesium Total Bilirubin Direct Bilirubin AST ALT Alkaline Phosphatase B-Natriuretic Peptide Total Protein Albumin Ethyl Alcohol COVID-19 ([facility]) COVID-19 Clin Com Imaging Radiologist's Impressions: Impressions Chest X-Ray 04/19/22 00:48 IMPRESSION: Suspect small left pleural effusion. Hyperinflated lungs suspicious for COPD. Assessment and Plan (1) Acute exacerbation of chronic obstructive airways disease: Status: Acute Plan 66-year-old male with a past medical history of COPD on 2-8 L of oxygen at home presents with acute onset shortness of breath, cough and sputum production # acute hypoxic respiratory failure - continue oxygen supplement - titrate down to an oxygen of 88-92% # acute COPD exacerbation - reported cough, dyspnea, sputum production - will start him on Solu-Medrol and DuoNeb p.r.n. and scheduled - chest x-ray shows pleural effusion with no evidence of pneumonia - COVID-19 negative - if continues to be hypoxic, tachypneic/tachycardic, consider PE study given the sudden onset presentation pending complete med review, will continue his other meds once they are reconciled DVT prophylaxis: Lovenox Given patient's COPD exacerbation and need for Solu-Medrol and acute hypoxic respiratory failure patient will require minimal 2 night hospital stay Quality Stroke Does the patient have a stroke diagnosis?: No VTE Prior VTE?: No VTE Risk Level:: Medical - moderate - high VTE Device Contraindication: Treatment Not Indicated VTE Drug Contraindication: N/A - Med Ordered
[2022-04-19] MEDS: methylPREDNISolone Sod Succ 40 MG/ML VIAL IVPUSH ×2 (03:35→14:09)
[2022-04-19 04:15] LABS: Procalcitonin < 0.02 ng/mL
--- NOTE | 2022-04-19 06:10 | PC.NURSE ---
pt refusing AM labs, Dr Flores made aware
[2022-04-19 07:46] LABS: Appearance Urine Clear; Color Urine Yellow; Glucose Urine UA Negative (Negative); Leukocyte Esterase Urine Negative (Negative); Nitrite Urine Negative (Negative); PH 6.5 (5.0-8.0); Urine Blood Negative (Negative); Urine Ketones Negative (Negative); Urine Protein Negative (Neg-Trace)
[2022-04-19 08:05] LABS: Amphetamine Screen Urine Not Detected (Not Detect); Barbiturates, Urine Not Detected (Not Detect); Benzodiazepines Screen Urine Not Detected (Not Detect); Cannabinoid Screen Urine Not Detected (Not Detect); Cocaine Screen Urine Not Detected (Not Detect); Fentanyl, urine Not Detected (Not Detect); Opiate Screen Urine Not Detected (Not Detect); Phencyclidine Screen Urine Not Detected (Not Detect)
[2022-04-19] MEDS: Albuterol/Iprat 2.5/0.5MG 3 ML AMPUL.NEB INHALE (08:27)
[2022-04-19] MEDS: 0.9 % Sodium Chloride Flush 3 ML SYRINGE IVFLUSH ×2 (08:29→14:18)
--- NOTE | 2022-04-19 09:03 | PC.NURSE ---
Pt alert and oriented x4. Titrated off of high flow per hospitalist, now at 2L nasal cannula tolerating well. Resting quietly at this time.
[2022-04-19 09:29] LABS: D Dimer High Sensitivity 174 NG/ML
--- NOTE | 2022-04-19 09:38 | PHA.MEDREC ---
Pharmacy Consult ? Medication Reconciliation Pharmacy has completed the medication reconciliation. cOMPLETED USING me [facility]
--- NOTE | 2022-04-19 09:48 | PM.CNPUL ---
History of Present Illness History of Present Illness Consult date: 04/19/22 Reason for consult: dyspnea, COPD and hypoxemia Chief complaint: Acute COPD Narrative: This 66 years old gentleman is seen in the emergency room over flow department, for pulmonary consultation. The patient is quiet but non-conversant, and does not give any details of the history. Information obtained from the hospital records and from the nursing staff. He was brought to the emergency room during the night with increased shortness of breath, general fatigue and low oxygen. There is no history of fever or chills. No history of any chest pain. Initially the patient was offered CPAP but declined, because of hypoxemia he was treated for a while with high-flow O2, O2 has been weaned down to 2 L/minute at this time. I try to awaken the patient and converse with him but, he did not want to engage in any conversation. Clinically he looks quite comfortable and just wants to stay quiet. It should be noted that this gentleman has long-standing history of smoking, chronic obstructive pulmonary disease, and previous history of pneumothorax treated with thoracostomy. This year he has been hospitalized to in October 2021, in early part of January and then in later part of January all the times with acute exacerbations. On 02/18 after treatment the in the hospital for 9-10 days, he was discharged to a residential facility, with a tapering schedule of prednisone to be finished over 4 weeks. How long did he stay in these SNF. Is not clear. Medications listed for at home include Advair Diskus tired trope [place], and albuterol p.r.n. he also has benzonatate listed in his meds for cough. At this time there is no which to tell whether he was taking all these meds are not. This gentleman continues to smoke about 1 pack of cigarettes a day. Review of Systems Review of Systems: Yes Unobtainable due to mental condition (Patient is not willing to converse are give any information.) [facility]LY [facility] Past Medical History Medical History (Updated 04/19/22 @ 10:00 by Gabby Donohue MD) COPD (chronic obstructive pulmonary disease) COPD (chronic obstructive pulmonary disease) Emphysema lung Leukocytosis Pneumonia Pneumothorax Right inguinal hernia Schizophrenia Smoker in home Umbilical hernia Family History Family History Father CAD (coronary artery disease) Surgical History Surgical History No pertinent past surgical history Social History Social History Household Members: Other 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 Housing: Other Housing Other:: patient states he lives in the hotel Do you presently have visiting nurse or other home services: Yes Alcohol intake: current Alcohol intake frequency: a few times a month Alcohol type: beer Patient Tobacco Use Status: Current everyday Tobacco user Tobacco use type: Cigarette Cigarette Packs Per Day: 1 Cigarettes Per Day: 20.0 Second Hand Smoke Exposure: No Advance Directives: Yes Advance Directives on File: Yes Advance Directives Date on File: 03/22/21 service: No Current occupational status: 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 Meds Allergies Allergy/AdvReac Type Severity Reaction Status Date / Time tree and shrub pollen Allergy Mild Rash Verified 04/19/22 00:23 Active Medications: Current Medications Acetaminophen (Acetaminophen 325 Mg Tablet) 650 mg PO Q6H PRN PRN Reason: Pain, Mild (Pain Scale 1-3) Albuterol/Ipratropium (Albuterol/Iprat 2.5/0.5mg 3 Ml Ampul.Neb) 3 ml INHALE RQ4H PRN PRN Reason: Shortness of Breath/Wheezing Albuterol/Ipratropium (Albuterol/Iprat 2.5/0.5mg 3 Ml Ampul.Neb) 3 ml INHALE RQ4H WHILE AWAKE [facility] Last Admin: 04/19/22 08:27 Dose: 3 ml Docusate Sodium (Docusate Sodium 100 Mg Capsule) 100 mg PO DAILY PRN PRN Reason: Constipation Enoxaparin Sodium (Enoxaparin Sodium 40 Mg/0.4 Ml Syringe) 40 mg SUBCUT Q24H [facility] Last Admin: 04/19/22 09:02 Dose: Not Given Methylprednisolone Sodium Succinate (Methylprednisolone Sod Succ 40 Mg/Ml Vial) 40 mg IVPUSH Q12H [facility] Last Admin: 04/19/22 03:35 Dose: 40 mg Ondansetron HCl (Ondansetron Hcl 4 Mg/2 Ml Vial) 4 mg IVPUSH Q8H PRN PRN Reason: Nausea and Vomiting Pharmacy Consult (Consult Rx Perform Med Rec) 1 each MISCELLANE ONCE PRN PRN Reason: Consult order Sodium Chloride (0.9 % Sodium Chloride Flush 3 Ml Sy[facility]) [facility] Admin: 04/19/22 08:29 Dose: 3 ml Home Medications Medication Instructions Recorded Confirmed Last Taken Type acamprosate 333 mg tablet,delayed 333 mg PO TID 01/25/22 04/19/22 Unknown History release acetaminophen 300 mg-codeine 30 mg 1 tab PO BID PRN Pain 01/25/22 04/19/22 Unknown History tablet albuterol sulfate 90 mcg/actuation 1 puff inhalation Q4-6H PRN 01/25/22 04/19/22 Unknown History aerosol inhaler Wheezing benzonatate 100 mg capsule 100 mg PO TID PRN Cough 01/25/22 04/19/22 Unknown History buspirone 7.5 mg tablet 7.5 mg PO BID 01/25/22 04/19/22 Unknown History docusate sodium 100 mg capsule 100 mg PO DAILY PRN Constipation 01/25/22 04/19/22 Unknown History fluticasone 500 mcg-salmeterol 50 1 inh inhalation BID 01/25/22 04/19/22 Unknown History mcg/dose blistr powdr for inhalation (Advair Diskus) folic acid 1 mg tablet 1 mg PO DAILY 01/25/22 04/19/22 Unknown History gabapentin 100 mg capsule 100 mg PO BID 01/25/22 04/19/22 Unknown History hydroxyzine HCl 10 mg tablet 10 mg PO Q24H PRN Anxiety 01/25/22 04/19/22 Unknown History megestrol 400 mg/10 mL (10 mL) 200 mg PO BID 01/25/22 04/19/22 Unknown History oral suspension olanzapine 10 mg tablet 10 mg PO BEDTIME 01/25/22 04/19/22 Unknown History psyllium 1 tbsp PO DAILY 01/25/22 04/19/22 Unknown History tamsulosin 0.4 mg capsule 0.4 mg PO DAILY 01/25/22 04/19/22 Unknown History tiotropium bromide 2.5 2 puff inhalation DAILY 01/25/22 04/19/22 Unknown History mcg/actuation mist for inhalation trazodone 100 mg tablet 100 mg PO BEDTIME PRN Insomnia 01/25/22 04/19/22 Unknown History pseudoephedrine HCl 30 mg tablet 30 mg PO BID 04/19/22 04/19/22 Unknown History (Sudafed) Physical Exam Vital Signs: Vital Signs: Last Vital Signs Temp 98.4 F 04/19/22 02:00 Pulse 102 H 04/19/22 09:02 Resp 27 H 04/19/22 09:02 BP 143/60 H 04/19/22 03:10 Pulse Ox 100 04/19/22 09:02 O2 Del Method 04/19/22 09:02 O2 Flow Rate 2 04/19/22 09:02 FiO2 31.9 04/19/22 03:10 Oxygen Flow Rate 2 04/19/22 00:20 BMI result Body Mass Index 22.1 Const: General: comfortable, no acute distress, alert and awake Orientation/consciousness: patient oriented x3 HEENT: Head: Yes normal to inspection General nose exam: No nasal polyps present and No nasal discharge present Face and sinus: Yes sinuses nontender Mouth: oropharynx normal Throat: Yes posterior oropharynx normal Eyes: General: appearance normal, both eyes and all related structures Neck: Neck: Yes normal visual inspection, Yes no lymphadenopathy, Yes trachea midline and Yes no JVD Thyroid: Thyroid normal Chest: Chest palpation & inspection: normal inspection of the chest, normal palpation of entire chest wall, no tenderness and other (Thoracostomy scar over the left lower rib cage) Resp: Other: Percussion note is hyper resonant. Breath sounds are distant, with prolonged expiratory phase. No wheezes are heard , a few fine Creps over the left base. Cardio: Palpation: normal PMI Rate: regular rate Rhythm: regular rhythm Heart sounds: no gallops and no murmurs GI: Palpation (GI): Soft to palpation, nontender, No hepatosplenomegaly present and no masses Auscultation: normal bowel sounds Back/Spine/Pelvis: Thoracic/Lumbar Spine: thoracic and lumbar spine normal to inspection Skin: General skin exam: no rashes or lesions noted Neuro: General: patient oriented x3 and no focal motor deficits Cranial nerves: Yes CN's II-XII intact bilaterally Extrem: General: Yes normal to inspection, Yes no clubbing, cyanosis or edema and Yes no calf tenderness Psych: Appearance: grossly normal Speech and movement: Normal speech and movement present (Patient is quiet and non-conversant at this time.) Results Laboratory Findings CBC and BMP: 04/19/22 00:30 04/19/22 00:30 ABG, PT/INR, D-dimer: PT/INR, D-dimer PT 11.7 SEC (10.0-13.1) 04/19/22 00:42 INR 1.0 (0.9-1.1) 04/19/22 00:42 Abnormal lab findings: Abnormal Labs 04/19/22 04/19/22 00:30 00:30 WBC 14.1 H Plt Count 404 H MPV 8.7 L Abs Immat Gran (auto) 0.06 H Absolute Neuts (auto) 8.9 H BUN 5 L Diagnostic Findings Chest x-ray: report reviewed and image reviewed Assessment and Plan (1) Acute exacerbation of chronic obstructive airways disease: Status: Acute (2) COPD (chronic obstructive pulmonary disease): Status: Acute (3) Leukocytosis: Status: Acute Plan I think this gentleman comes in with the a mild acute exacerbation of COPD , This may be due to coming off the prednisone more recently, or could be due to noncompliance to use his regular inhalers. There is mild to moderate leukocytosis which I think is due to recent use of steroids, and not due to any active respiratory infection. Empirically patient may be treated with a short course of azithromycin. There is some anatomical distortion at the left base which is related to the old thoracostomy procedure, and residual pleural scarring. The chest x-ray shows the extensive hyperinflated emphysematic lung, unchanged from before. This patient may have become dependent on oral steroids, and develops acute exacerbation as soon as he comes off prednisone. He is prone to have recurrent acute exacerbations due to Socio-medical factors . Recc . Wean off the O2 slowly , as long as O2 sat remains above 90%. IV Solu-Medrol 40 mg q.8 hours for 1 day then prednisone 40 mg a day for 5 days. May treat him with a 5 days course of azithromycin. Elizabeth aguila Q 6 hours while awake. May be started on Breo-200 1 inhalation daily. Procedures Date of Service Date of Service: 04/19/22
--- NOTE | 2022-04-19 14:27 | PM.EVENT ---
Event Note Date of Service: 04/19/22 Event Note: Patient already seen by hospitalist team this morning. Seen and examined again Shortness of breath improving, tachycardia and tachypnea also improving Oxygen demand also, taken of the high-flow. physicalexam: Appearance: Alert.? Oriented X3.? sob? cvs: rrr, [id number] , no murmur res: air entry diminshed , b/l wheezing abd: no rebound or guarding ,nt, bs present. ext pulses present , no cyanosis . neuro: axo3 , nonfocal Assessment and plan coordinated in H&P note. Acute hypoxemic respiratory failure secondary to COPD exacerbation. Tachycardia/tachypnea possibly related to COPD exacerbation. Tachycardia/tachypnea improving, ddimer fine procalcitonin levels low,lactic acid normal continue nebs ,steriods ,supportive care with oxygen added pulm eval
[2022-04-19] MEDS: busPIRone HCl 5 MG TABLET 7.5 MG PO ×2 (15:24→22:55)
[2022-04-19] MEDS: Folic Acid 1 MG TABLET PO (15:24)
[2022-04-19] MEDS: Gabapentin 100 MG CAPSULE PO (15:24)
[2022-04-19] MEDS: Tamsulosin HCL 0.4 MG CAPSULE PO (15:24)
--- NOTE | 2022-04-19 16:13 | MHC.CM.PN ---
IMM 04/19/22, EMR REVIEWED, PT ADMITTED W/ACUTE COPD EXAC, CM MET W/PT HOWEVER PT IRRITABLE AND NOT COOPERATIVE W/ENTIRE CM ASSESSMENT, PT REPORTS HE STILL LIVES AT THE 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 ALL OTHER INFO CAM FROM PREVIOUS ADMIT, PT IS ACTIVE W/[facility], PCP ON FILE IS MARYANN CONWAY, ADVANCE DIRECTIVE ALSO ON FILE FROM PRIOR ADMIT. PFIZER X3. ANTIC D/C PLAN: HOME W/RESUMP OF [facility] AND [employer], LIKELY PT WILL NEED TRANSPORT.
--- NOTE | 2022-04-19 16:48 | PC.NURSE ---
pt requesting medication to be split into smaller batched, pt medication with some of afternoon medications - pharmacy contacted for remainder. pt requesting to sleep - didn't sleep well last night.
[2022-04-19] MEDS: Acamprosate Calcium 333 MG TABLET.DR PO ×2 (17:33→22:54)
[2022-04-19] MEDS: Megestrol Acetate 400 MG/10 ML ORAL.SUSP 200 MG PO ×2 (17:35→22:53)
--- NOTE | 2022-04-19 22:32 | PC.NURSE ---
called pharmacy for medication.
[2022-04-19] MEDS: OLANZapine 10 MG TABLET PO (22:54)
[2022-04-20] VITALS (7 sets, daily range): BP systolic 122–140; BP diastolic 55–72; PULSE 18–97; RESP 18–22; TEMP 36.9; O2SAT 90–100
--- NOTE | 2022-04-20 03:10 | PC.NURSE ---
RN assumed care of patient at this time.
[2022-04-20] MEDS: methylPREDNISolone Sod Succ 40 MG/ML VIAL IVPUSH ×3 (04:23→21:25)
--- NOTE | 2022-04-20 08:36 | PC.NURSE ---
PT REFUSING ALL MEDICATIONS AT THIS TIME, STATES HE WANTS TO SLEEP AND HE WILL TAKE THEM LATER.
--- NOTE | 2022-04-20 08:54 | PC.NURSE ---
pt will be going to over flow report given to susu thompson
[2022-04-20] MEDS: Tamsulosin HCL 0.4 MG CAPSULE PO (13:17)
[2022-04-20] MEDS: Acamprosate Calcium 333 MG TABLET.DR PO ×2 (13:17→21:26)
[2022-04-20] MEDS: Folic Acid 1 MG TABLET PO (13:19)
[2022-04-20] MEDS: busPIRone HCl 5 MG TABLET 7.5 MG PO ×2 (13:19→21:25)
[2022-04-20] MEDS: Megestrol Acetate 400 MG/10 ML ORAL.SUSP 200 MG PO ×2 (13:20→21:27)
--- NOTE | 2022-04-20 15:39 | P.PNIM_ITS ---
Subjective Subjective Date of Service: 04/20/22 Interval History: remains short of breath with minimal exertion. Agitated at baseline Review of Systems denies chest pain Admits to shortness of breath with minimal movement denies nausea vomiting diarrhea Denies fever chills Physical Exam Vital Signs: Vital Signs: Last Vital Signs Temp 98.4 F 04/19/22 02:00 Pulse 18 L 04/20/22 08:32 Resp 18 04/20/22 08:32 BP 122/55 L 04/20/22 04:25 Pulse Ox 100 04/20/22 08:32 O2 Del Method 04/20/22 08:32 O2 Flow Rate 2 04/20/22 08:32 FiO2 31.9 04/19/22 03:10 Oxygen Flow Rate 2 04/19/22 00:20 BMI result Body Mass Index 22.1 Const: Other: visibly short of breath at rest. Able to speak in short sentences Resp: Other: extremely diminished at bases. Scant expiratory wheezes heard Cardio: Other: distant heart sounds; no S4; positive S1-S2; no S3 murmurs rubs or gallops GI: Other: soft nontender nondistended with normoactive bowel sounds Extrem: Other: no edema bilaterally Objective Data Active Medications Acamprosate (Acamprosate Calcium 333 Mg Tablet.) 333 mg PO TID [facility] Last Admin: 04/20/22 13:17 Dose: 333 mg Documented By: ECHO Acetaminophen (Acetaminophen 325 Mg Tablet) 650 mg PO Q6H PRN PRN Reason: Pain, Mild (Pain Scale 1-3) Albuterol/Ipratropium (Albuterol/Iprat 2.5/0.5mg 3 Ml Ampul.Neb) 3 ml INHALE RQ4H PRN PRN Reason: Shortness of Breath/Wheezing Albuterol/Ipratropium (Albuterol/Iprat 2.5/0.5mg 3 Ml Ampul.Neb) 3 ml INHALE RQ4H WHILE AWAKE [facility] Last Admin: 04/20/22 15:35 Dose: Not Given Documented By: JUVE Non-Admin Reason: Patient Refused Benzonatate (Benzonatate 100 Mg Capsule) 100 mg PO TID PRN PRN Reason: Cough Buspirone HCl (Buspirone Hcl 5 Mg Tablet) 7.5 mg PO BID [facility] Last Admin: 04/20/22 13:19 Dose: 7.5 mg Documented By: ECHO Docusate Sodium (Docusate Sodium 100 Mg Capsule) 100 mg PO DAILY PRN PRN Reason: Constipation Docusate Sodium (Docusate Sodium 100 Mg Capsule) 100 mg PO DAILY PRN PRN Reason: Constipation Enoxaparin Sodium (Enoxaparin Sodium 40 Mg/0.4 Ml Syringe) 40 mg SUBCUT Q24H [facility] Last Admin: 04/20/22 13:18 Dose: Not Given Documented By: ECHO Non-Admin Reason: Patient Refused Folic Acid (Folic Acid 1 Mg Tablet) 1 mg PO DAILY [facility] Last Admin: 04/20/22 13:19 Dose: 1 mg Documented By: ECHO Gabapentin (Gabapentin 100 Mg Capsule) 100 mg PO BID [facility] Last Admin: 04/19/22 15:24 Dose: 100 mg Documented By: LEROY Hydroxyzine HCl (Hydroxyzine Hcl 10 Mg Tablet) 10 mg PO Q24H PRN PRN Reason: Anxiety Megestrol Acetate (Megestrol Acetate 400 Mg/10 Ml Oral.Susp) 200 mg PO BID [facility] Last Admin: 04/20/22 13:20 Dose: 200 mg Documented By: ECHO Methylprednisolone Sodium Succinate (Methylprednisolone Sod Succ 40 Mg/Ml Vial) 40 mg IVPUSH Q12H [facility] Last Admin: 04/20/22 04:23 Dose: 40 mg Documented By: PEYTON Olanzapine (Olanzapine 10 Mg Tablet) 10 mg PO BEDTIME [facility] Last Admin: 04/19/22 22:54 Dose: 10 mg Documented By: TRENTON Ondansetron HCl (Ondansetron Hcl 4 Mg/2 Ml Vial) 4 mg IVPUSH Q8H PRN PRN Reason: Nausea and Vomiting Pharmacy Consult (Consult Rx Perform Med Rec) 1 each MISCELLANE ONCE PRN PRN Reason: Consult order Psyllium Hydrophilic Mucilloid (Psyllium Seed 3.4 Gm Powd.Pack) 3.4 gm PO DAILY [facility] Last Admin: 04/20/22 13:18 Dose: Not Given Documented By: ECHO Non-Admin Reason: Patient Refused Sodium Chloride (0.9 % Sodium Chloride Flush 3 Ml Syringe) 3 ml IVFLUSH QSHIFT [facility] Last Admin: 04/20/22 09:21 Dose: Not Given Documented By: LIZETH Non-Admin Reason: IV Running Tamsulosin HCl (Tamsulosin Hcl 0.4 Mg Capsule) 0.4 mg PO DAILY [facility] Last Admin: 04/20/22 13:17 Dose: 0.4 mg Documented By: ECHO Tiotropium [place] (Tiotropium [place] 18 Mcg Cap.W.Dev) 1 puff INHALE RDAILY [facility] Last Admin: 04/20/22 07:54 Dose: Not Given Documented By: LIAM Non-Admin Reason: Patient Refused Trazodone HCl (Trazodone Hcl 100 Mg Tablet) 100 mg PO BEDTIME PRN PRN Reason: Insomnia Labs CBC & Chem 7: 04/19/22 00:30 04/19/22 00:30 Microbiology Microbiology Results: Microbiology 04/19/22 01:13 Blood Culture - Preliminary Blood - Venous No growth after 24 hours. 04/19/22 01:13 Blood Culture - Preliminary Blood - Venous No growth after 24 hours. Assessment and Plan (1) Acute exacerbation of chronic obstructive airways disease: Status: Acute (2) Acute and chronic respiratory failure with hypoxia: Status: Acute Plan 66-year-old male with a past medical history of COPD on 2-8 L of oxygen at home presents with acute onset shortness of breath, cough and sputum production 1.Acute hypoxic respiratory failure( secondary to COPD exacerbation) - continue pulse dose steroids - azithromycin p.o. - titrate O2 as tolerated - DuoNebs q.4 hours while awake DVT prophylaxis: Lovenox patient will require ongoing hospitalization for IV steroids and supplemental O2 to treat COPD exacerbation Quality Stroke Does the patient have a stroke diagnosis?: No VTE Prior VTE?: No VTE Risk Level:: Medical - moderate - high VTE Device Contraindication: Treatment Not Indicated VTE Drug Contraindication: N/A - Med Ordered
[2022-04-20] MEDS: Albuterol/Iprat 2.5/0.5MG 3 ML AMPUL.NEB INHALE ×2 (16:19→20:29)
[2022-04-20] MEDS: 0.9 % Sodium Chloride Flush 3 ML SYRINGE IVFLUSH ×2 (17:22→21:26)
[2022-04-20] MEDS: OLANZapine 10 MG TABLET PO (21:26)
[2022-04-20] MEDS: Nicotine 21 MG PATCH.TD24 TRANSDERMA (22:31)
--- NOTE | 2022-04-20 23:53 | PC.NURSE ---
pt refused midnight vital signs.
[2022-04-21] VITALS (9 sets, daily range): BP systolic 119–144; BP diastolic 64–72; PULSE 85–110; RESP 16–21; TEMP 36.3–37.8; O2SAT 95–99
[2022-04-21] MEDS: methylPREDNISolone Sod Succ 40 MG/ML VIAL IVPUSH ×4 (03:45→20:53)
[2022-04-21] MEDS: Albuterol/Iprat 2.5/0.5MG 3 ML AMPUL.NEB INHALE ×3 (08:21→19:41)
[2022-04-21] MEDS: Tamsulosin HCL 0.4 MG CAPSULE PO (10:42)
[2022-04-21] MEDS: Acamprosate Calcium 333 MG TABLET.DR PO ×3 (10:42→20:54)
[2022-04-21] MEDS: Fluticasone Propionate Nasal 16 GM SPRAY 1 SPRAY NOSTRIL-B (10:42)
[2022-04-21] MEDS: Folic Acid 1 MG TABLET PO (10:42)
[2022-04-21] MEDS: busPIRone HCl 5 MG TABLET 7.5 MG PO ×2 (10:43→20:54)
[2022-04-21] MEDS: Nicotine 21 MG PATCH.TD24 TRANSDERMA (10:46)
[2022-04-21] MEDS: 0.9 % Sodium Chloride Flush 3 ML SYRINGE IVFLUSH ×3 (10:46→20:54)
[2022-04-21] MEDS: Enoxaparin Sodium 40 MG/0.4 ML SYRINGE SUBCUT (10:49)
--- NOTE | 2022-04-21 14:13 | HO.PM.IMPN ---
Subjective Subjective Date of Service: 04/21/22 Interval History: notes some improvement overnight Review of Systems denies chest pain Admits to shortness of breath with minimal movement denies nausea vomiting diarrhea Denies fever chills Physical Exam Vital Signs: Vital Signs: Last Vital Signs Temp 100.0 F 04/21/22 11:22 Pulse 106 H 04/21/22 11:22 Resp 21 H 04/21/22 11:22 BP 139/64 04/21/22 11:22 Pulse Ox 97 04/21/22 11:22 O2 Del Method 04/21/22 11:22 O2 Flow Rate 3 04/21/22 11:22 FiO2 31.9 04/19/22 03:10 Oxygen Flow Rate 2 04/19/22 00:20 BMI result Body Mass Index 22.1 Const: Other: visibly short of breath at rest. Able to speak in short sentences Resp: Other: extremely diminished at bases. Scant expiratory wheezes heard Cardio: Other: distant heart sounds; no S4; positive S1-S2; no S3 murmurs rubs or gallops GI: Other: soft nontender nondistended with normoactive bowel sounds Extrem: Other: no edema bilaterally Objective Data Active Medications Acamprosate (Acamprosate Calcium 333 Mg Tablet.) 333 mg PO TID [facility] Last Admin: 04/21/22 10:42 Dose: 333 mg Documented By: CHUN Acetaminophen (Acetaminophen 325 Mg Tablet) 650 mg PO Q6H PRN PRN Reason: Pain, Mild (Pain Scale 1-3) Albuterol/Ipratropium (Albuterol/Iprat 2.5/0.5mg 3 Ml Ampul.Neb) 3 ml INHALE RQ4H PRN PRN Reason: Shortness of Breath/Wheezing Albuterol/Ipratropium (Albuterol/Iprat 2.5/0.5mg 3 Ml Ampul.Neb) 3 ml INHALE RQ4H WHILE AWAKE [facility] Last Admin: 04/21/22 11:10 Dose: 3 ml Documented By: BRESNE Benzonatate (Benzonatate 100 Mg Capsule) 100 mg PO TID PRN PRN Reason: Cough Buspirone HCl (Buspirone Hcl 5 Mg Tablet) 7.5 mg PO BID [facility] Last Admin: 04/21/22 10:43 Dose: 7.5 mg Documented By: CHUN Docusate Sodium (Docusate Sodium 100 Mg Capsule) 100 mg PO DAILY PRN PRN Reason: Constipation Docusate Sodium (Docusate Sodium 100 Mg Capsule) 100 mg PO DAILY PRN PRN Reason: Constipation Enoxaparin Sodium (Enoxaparin Sodium 40 Mg/0.4 Ml Syringe) 40 mg SUBCUT Q24H [facility] Last Admin: 04/21/22 10:49 Dose: 40 mg Documented By: CHUN Fluticasone Propionate (Fluticasone Propionate Nasal 16 Gm [place]) 1 spray NOSTRIL-B DAILY [facility] Last Admin: 04/21/22 10:42 Dose: 1 spray Documented By: CHUN Folic Acid (Folic Acid 1 Mg Tablet) 1 mg PO DAILY [facility] Last Admin: 04/21/22 10:42 Dose: 1 mg Documented By: CHUN Gabapentin (Gabapentin 100 Mg Capsule) 100 mg PO BID [facility] Last Admin: 04/19/22 15:24 Dose: 100 mg Documented By: LEROY Hydroxyzine HCl (Hydroxyzine Hcl 10 Mg Tablet) 10 mg PO Q24H PRN PRN Reason: Anxiety Megestrol Acetate (Megestrol Acetate 400 Mg/10 Ml Oral.Susp) 200 mg PO BID [facility] Last Admin: 04/21/22 10:50 Dose: Not Given Documented By: CHUN Non-Admin Reason: Patient Refused Methylprednisolone Sodium Succinate (Methylprednisolone Sod Succ 40 Mg/Ml Vial) 40 mg IVPUSH Q6H [facility] Last Admin: 04/21/22 10:40 Dose: 40 mg Documented By: CHUN Nicotine (Nicotine 21 Mg Patch.Td24) 21 mg TRANSDERMA DAILY [facility] Last Admin: 04/21/22 10:46 Dose: 21 mg Documented By: CHUN Olanzapine (Olanzapine 10 Mg Tablet) 10 mg PO BEDTIME [facility] Last Admin: 04/20/22 21:26 Dose: 10 mg Documented By: SHIMA Ondansetron HCl (Ondansetron Hcl 4 Mg/2 Ml Vial) 4 mg IVPUSH Q8H PRN PRN Reason: Nausea and Vomiting Pharmacy Consult (Consult Rx Perform Med Rec) 1 each MISCELLANE ONCE PRN PRN Reason: Consult order Psyllium Hydrophilic Mucilloid (Psyllium Seed 3.4 Gm Powd.Pack) 3.4 gm PO DAILY [facility] Last Admin: 04/21/22 10:46 Dose: Not Given Documented By: CHUN Non-Admin Reason: Patient Refused Sodium Chloride (0.9 % Sodium Chloride Flush 3 Ml Syringe) 3 ml IVFLUSH QSHIFT [facility] Last Admin: 04/21/22 10:46 Dose: 3 ml Documented By: CHUN Tamsulosin HCl (Tamsulosin Hcl 0.4 Mg Capsule) 0.4 mg PO DAILY [facility] Last Admin: 04/21/22 10:42 Dose: 0.4 mg Documented By: CHUN Tiotropium [place] (Tiotropium [place] 18 Mcg Cap.W.Dev) 1 puff INHALE RDAILY [facility] Last Admin: 04/21/22 08:29 Dose: 1 puff Documented By: BRESPAUL Trazodone HCl (Trazodone Hcl 100 Mg Tablet) 100 mg PO BEDTIME PRN PRN Reason: Insomnia Labs CBC & Chem 7: 04/19/22 00:30 04/19/22 00:30 Microbiology Microbiology Results: Microbiology 04/19/22 01:13 Blood Culture - Preliminary Blood - Venous No growth after 48 hours. 04/19/22 01:13 Blood Culture - Preliminary Blood - Venous No growth after 48 hours. Assessment and Plan (1) Acute and chronic respiratory failure with hypoxia: Status: Acute (2) Acute exacerbation of chronic obstructive airways disease: Status: Acute Plan 66-year-old male with a past medical history of COPD on 2-8 L of oxygen at home presents with acute onset shortness of breath, cough and sputum production 1.Acute hypoxic respiratory failure( secondary to COPD exacerbation) - continue pulse dose steroids x24hrs - azithromycin p.o. - titrate O2 as tolerated - DuoNebs q.4 hours while awake DVT prophylaxis: Lovenox patient will require ongoing hospitalization for IV steroids and supplemental O2 to treat COPD exacerbation Quality Stroke Does the patient have a stroke diagnosis?: No VTE Prior VTE?: No VTE Risk Level:: Medical - moderate - high VTE Device Contraindication: Treatment Not Indicated VTE Drug Contraindication: N/A - Med Ordered
[2022-04-21] MEDS: Azithromycin 500 MG TABLET PO (15:04)
--- NOTE | 2022-04-21 16:31 | MHC.CLN ---
NUTRITION CONSULT FOR POOR APPETITE AND SMALL FREQUENT MEALS. PATIENT KNOWN FROM PRIOR ADMISSION. HX OF VARIABLE WEIGHTS BUT SHOWS OVERALL WEIGHT GAIN X ONE YEAR. HAS ENSURE AT HOME AND WOULD LIKE TWICE DAILY HERE. ORDER FOR ENSURE BID (700 KCALS, 40 G PROTEIN). STATED. I NEED FULL MEALS . DOES NOT WANT SMALL FREQUENT MEALS. REPEATEDLY ASKING FOR HOT TEA DURING VISIT. [employer] AWARE OF PREFERENCE OF HOT TEA AND VANILLA ENSURE. RD TO FOLLOW WEEKLY FOR INTAKE.
[2022-04-21] MEDS: Megestrol Acetate 400 MG/10 ML ORAL.SUSP 200 MG PO (20:52)
[2022-04-21] MEDS: OLANZapine 10 MG TABLET PO (20:54)
[2022-04-22] MEDS: methylPREDNISolone Sod Succ 40 MG/ML VIAL IVPUSH ×4 (06:14→21:22)
[2022-04-22 06:35] LABS: Basophils Percent Auto 0.1 % (0-2); Hematocrit 38.4 % (42.0-52.0); Hemoglobin 12.9 g/dl (14.0-18.0); Imm Gran Pct Auto 0.5 % (0.0-0.4); Lymphocytes Absolute Auto 0.9 X10*3/uL (1.2-4.9); Lymphocytes Percent Auto 4.7 % (20-40); MANUAL DIFF FLAG SCAN; Mean Corpuscular HGB Conc 33.6 g/dl (31.0-36.0); Mean Corpuscular Hemoglobin 30.6 pg (27.0-33.0); Mean Corpuscular Volume 91.2 fL (80.0-98.0); Mean Platelet Volume 8.7 fL (9.4-12.4); Monocytes Absolute Auto 0.7 X10*3/uL (0.1-1.2); Monocytes Percent Auto 3.3 % (2-11); Neutrophils Absolute Auto 17.9 x10*3/uL (2.0-8.3); Neutrophils Percent Auto 91.4 % (45-73); Platelet Count 377 X10*3/uL (160-400); Red Blood Count 4.21 X10*6/uL (4.60-5.80); Red Cell Distribution Width 13.1 % (11.0-16.0); SCAN SMEAR FLAG 1; White Blood Count 19.6 X10*3/uL (4.8-10.8)
[2022-04-22 07:02] LABS: SLIDE REVIEW VERIFIED
[2022-04-22 07:09] LABS: Alanine Aminotransferase 20 U/L (0-40); Albumin Level 3.2 g/dL (3.5-5.0); Alkaline Phosphatase 75 U/L (39-117); Anion Gap 12 (12-20); Aspartate Amino Transferase 12 U/L (5-37); Bilirubin Total 0.4 mg/dL (0.0-1.0); Blood Urea Nitrogen 12 mg/dL (9-16); Calcium 8.8 mg/dL (8.4-10.2); Carbon Dioxide 24 mmol/L (22-29); Chloride 105 mmol/L (96-108); Creatinine Clr Calc Pharmacy 109.7; Estimated Glomerular Filt Rate > 60; Glucose Fasting 121 mg/dL (60-99); Potassium 4.1 mmol/L (3.3-5.1); Sodium 137 mmol/L (135-145); Total Protein 5.4 g/dL (6.5-8.0)
[2022-04-22] MEDS: Megestrol Acetate 400 MG/10 ML ORAL.SUSP 200 MG PO ×2 (10:01→21:26)
[2022-04-22] MEDS: Acamprosate Calcium 333 MG TABLET.DR PO ×2 (10:02→17:25)
[2022-04-22] MEDS: Nicotine 21 MG PATCH.TD24 TRANSDERMA (10:02)
[2022-04-22] MEDS: busPIRone HCl 5 MG TABLET 7.5 MG PO ×2 (10:02→21:24)
[2022-04-22] MEDS: Enoxaparin Sodium 40 MG/0.4 ML SYRINGE SUBCUT (10:02)
[2022-04-22] MEDS: Tamsulosin HCL 0.4 MG CAPSULE PO (10:02)
[2022-04-22] MEDS: Folic Acid 1 MG TABLET PO (10:02)
[2022-04-22] MEDS: 0.9 % Sodium Chloride Flush 3 ML SYRINGE IVFLUSH ×3 (10:03→23:51)
--- NOTE | 2022-04-22 11:14 | P.PNIM_ITS ---
Subjective Subjective Date of Service: 04/22/22 Interval History: breathing somewhat improved but not back to baseline per patient Review of Systems denies chest pain Admits to shortness of breath with minimal movement denies nausea vomiting diarrhea Denies fever chills Physical Exam Vital Signs: Vital Signs: Last Vital Signs Temp 97.4 F 04/21/22 23:19 Pulse 93 04/21/22 23:19 Resp 18 04/21/22 23:19 BP 142/65 H 04/21/22 23:19 Pulse Ox 99 04/21/22 23:19 O2 Del Method 04/21/22 23:19 O2 Flow Rate 2 04/21/22 23:19 FiO2 31.9 04/19/22 03:10 Oxygen Flow Rate 2 04/19/22 00:20 BMI result Body Mass Index 22.1 Const: Other: visibly short of breath at rest. Able to speak in short sentences Resp: Other: extremely diminished at bases. Scant expiratory wheezes heard Cardio: Other: distant heart sounds; no S4; positive S1-S2; no S3 murmurs rubs or gallops GI: Other: soft nontender nondistended with normoactive bowel sounds Extrem: Other: no edema bilaterally Objective Data Active Medications Acamprosate (Acamprosate Calcium 333 Mg Tablet.) 333 mg PO TID [facility] Last Admin: 04/22/22 10:02 Dose: 333 mg Documented By: CHUN Acetaminophen (Acetaminophen 325 Mg Tablet) 650 mg PO Q6H PRN PRN Reason: Pain, Mild (Pain Scale 1-3) Albuterol/Ipratropium (Albuterol/Iprat 2.5/0.5mg 3 Ml Ampul.Neb) 3 ml INHALE RQ4H PRN PRN Reason: Shortness of Breath/Wheezing Albuterol/Ipratropium (Albuterol/Iprat 2.5/0.5mg 3 Ml Ampul.Neb) 3 ml INHALE RQ4H WHILE AWAKE [facility] Last Admin: 04/22/22 11:13 Dose: Not Given Documented By: JUVE Non-Admin Reason: Patient Asleep Benzonatate (Benzonatate 100 Mg Capsule) 100 mg PO TID PRN PRN Reason: Cough Buspirone HCl (Buspirone Hcl 5 Mg Tablet) 7.5 mg PO BID [facility] Last Admin: 04/22/22 10:02 Dose: 7.5 mg Documented By: CHUN Docusate Sodium (Docusate Sodium 100 Mg Capsule) 100 mg PO DAILY PRN PRN Reason: Constipation Docusate Sodium (Docusate Sodium 100 Mg Capsule) 100 mg PO DAILY PRN PRN Reason: Constipation Enoxaparin Sodium (Enoxaparin Sodium 40 Mg/0.4 Ml Syringe) 40 mg SUBCUT Q24H [facility] Last Admin: 04/22/22 10:02 Dose: 40 mg Documented By: CHUN Fluticasone Propionate (Fluticasone Propionate Nasal 16 Gm [place]) 1 spray NOSTRIL-B DAILY [facility] Last Admin: 04/22/22 10:10 Dose: Not Given Documented By: CHUN Non-Admin Reason: Patient Refused Folic Acid (Folic Acid 1 Mg Tablet) 1 mg PO DAILY [facility] Last Admin: 04/22/22 10:02 Dose: 1 mg Documented By: CHUN Gabapentin (Gabapentin 100 Mg Capsule) 100 mg PO BID [facility] Last Admin: 04/19/22 15:24 Dose: 100 mg Documented By: LEROY Hydroxyzine HCl (Hydroxyzine Hcl 10 Mg Tablet) 10 mg PO Q24H PRN PRN Reason: Anxiety Megestrol Acetate (Megestrol Acetate 400 Mg/10 Ml Oral.Susp) 200 mg PO BID [facility] Last Admin: 04/22/22 10:01 Dose: 200 mg Documented By: CHUN Methylprednisolone Sodium Succinate (Methylprednisolone Sod Succ 40 Mg/Ml Vial) 40 mg IVPUSH Q6H [facility] Last Admin: 04/22/22 10:03 Dose: 40 mg Documented By: CHUN Nicotine (Nicotine 21 Mg Patch.Td24) 21 mg TRANSDERMA DAILY [facility] Last Admin: 04/22/22 10:02 Dose: 21 mg Documented By: CHUN Olanzapine (Olanzapine 10 Mg Tablet) 10 mg PO BEDTIME [facility] Last Admin: 04/21/22 20:54 Dose: 10 mg Documented By: SHIMA Ondansetron HCl (Ondansetron Hcl 4 Mg/2 Ml Vial) 4 mg IVPUSH Q8H PRN PRN Reason: Nausea and Vomiting Pharmacy Consult (Consult Rx Perform Med Rec) 1 each MISCELLANE ONCE PRN PRN Reason: Consult order Psyllium Hydrophilic Mucilloid (Psyllium Seed 3.4 Gm Powd.Pack) 3.4 gm PO DAILY [facility] Last Admin: 04/22/22 10:02 Dose: 3.4 gm Documented By: CHUN Sodium Chloride (0.9 % Sodium Chloride Flush 3 Ml Syringe) 3 ml IVFLUSH QSHIFT [facility] Last Admin: 04/22/22 10:03 Dose: 3 ml Documented By: CHUN Tamsulosin HCl (Tamsulosin Hcl 0.4 Mg Capsule) 0.4 mg PO DAILY [facility] Last Admin: 04/22/22 10:02 Dose: 0.4 mg Documented By: CHUN Tiotropium [place] (Tiotropium [place] 18 Mcg Cap.W.Dev) 1 puff INHALE RDAILY [facility] Last Admin: 04/21/22 08:29 Dose: 1 puff Documented By: BRESPAUL Trazodone HCl (Trazodone Hcl 100 Mg Tablet) 100 mg PO BEDTIME PRN PRN Reason: Insomnia Labs CBC & Chem 7: 04/22/22 06:18 04/22/22 06:18 Labs: Laboratory Results - last 24 hr 04/22/22 04/22/22 06:18 06:18 MCV 91.2 MCH 30.6 MCHC 33.6 RDW 13.1 Plt Count 377 MPV 8.7 L Immature Gran % (Auto) 0.5 H Neut % (Auto) 91.4 H Lymph % (Auto) 4.7 L [place] % (Auto) 3.3 Eos % (Auto) 0.0 Baso % (Auto) 0.1 Lymph # (Auto) 0.9 L [place] # (Auto) 0.7 Eos # (Auto) 0.0 Baso # (Auto) 0.0 Abs Immat Gran (auto) 0.10 H Absolute Neuts (auto) 17.9 H Absolute Nucleated RBC 0.000 Nucleated RBC % (auto) 0.0 Smear Tech's Comments VERIFIED Anion Gap 12 Estim Creat Clear Calc 109.7 Estimated GFR > 60 Fasting Glucose 121 H Calcium 8.8 D Total Bilirubin 0.4 AST 12 D ALT 20 Alkaline Phosphatase 75 D Total Protein 5.4 L Albumin 3.2 L Assessment and Plan (1) Acute and chronic respiratory failure with hypoxia: Status: Acute (2) Acute exacerbation of chronic obstructive airways disease: Status: Acute Plan 66-year-old male with a past medical history of COPD on 2-8 L of oxygen at home presents with acute onset shortness of breath, cough and sputum production 1.Acute hypoxic respiratory failure( secondary to COPD exacerbation) - continue pulse dose steroids( no appreciable improvement) - azithromycin p.o. - titrate O2 as tolerated - DuoNebs q.4 hours while awake DVT prophylaxis: Lovenox patient will require ongoing hospitalization for IV steroids and supplemental O2 to treat COPD exacerbation Quality Stroke Does the patient have a stroke diagnosis?: No VTE Prior VTE?: No VTE Risk Level:: Medical - moderate - high VTE Device Contraindication: Treatment Not Indicated VTE Drug Contraindication: N/A - Med Ordered
[2022-04-22 11:36] VITALS: O2SAT 100
--- NOTE | 2022-04-22 11:54 | MHC.CM.PN ---
PER MD ROUNDS, PLAN IS HOME Monday04/23/22 HE IS NEAR HIS BASELINE O2 MAY NEED ASSIST WITH TRANSPORT HOME ([facility])
[2022-04-22] MEDS: Albuterol/Iprat 2.5/0.5MG 3 ML AMPUL.NEB INHALE ×2 (13:06→19:47)
[2022-04-22 13:07] VITALS: PULSE 93; RESP 24; O2SAT 95
[2022-04-22 16:00] VITALS: BP 139/64; PULSE 99; RESP 15; TEMP 36.7; O2SAT 99
[2022-04-22] MEDS: Docusate Sodium 100 MG CAPSULE PO (17:23)
[2022-04-22] MEDS: Azithromycin 500 MG TABLET PO (17:25)
[2022-04-22 19:01] VITALS: BP 168/70; PULSE 112; RESP 17; O2SAT 97
[2022-04-22 19:48] VITALS: PULSE 102; RESP 20; O2SAT 96
[2022-04-22] MEDS: OLANZapine 10 MG TABLET PO (21:24)
[2022-04-22] MEDS: hydrOXYzine HCL 10 MG TABLET PO (21:25)
[2022-04-22 23:29] VITALS: BP 161/73; PULSE 97; RESP 20; TEMP 37.6; O2SAT 98
[2022-04-23] VITALS (8 sets, daily range): BP systolic 122–158; BP diastolic 68–81; PULSE 72–108; RESP 18–22; TEMP 36–37.6; O2SAT 95–100
[2022-04-23] MEDS: methylPREDNISolone Sod Succ 40 MG/ML VIAL IVPUSH ×4 (04:46→20:51)
[2022-04-23] MEDS: Megestrol Acetate 400 MG/10 ML ORAL.SUSP 200 MG PO ×2 (10:13→20:51)
[2022-04-23] MEDS: busPIRone HCl 5 MG TABLET 7.5 MG PO ×2 (10:13→20:52)
[2022-04-23] MEDS: Enoxaparin Sodium 40 MG/0.4 ML SYRINGE SUBCUT (10:13)
[2022-04-23] MEDS: Tamsulosin HCL 0.4 MG CAPSULE PO (10:14)
[2022-04-23] MEDS: Fluticasone Propionate Nasal 16 GM SPRAY 1 SPRAY NOSTRIL-B (10:14)
[2022-04-23] MEDS: Acamprosate Calcium 333 MG TABLET.DR PO ×3 (10:14→20:52)
[2022-04-23] MEDS: Folic Acid 1 MG TABLET PO (10:14)
[2022-04-23] MEDS: hydrOXYzine HCL 10 MG TABLET PO (10:14)
[2022-04-23] MEDS: Nicotine 21 MG PATCH.TD24 TRANSDERMA (10:14)
[2022-04-23] MEDS: 0.9 % Sodium Chloride Flush 3 ML SYRINGE IVFLUSH ×3 (10:15→23:39)
[2022-04-23] MEDS: Albuterol/Iprat 2.5/0.5MG 3 ML AMPUL.NEB INHALE ×3 (12:03→20:24)
--- NOTE | 2022-04-23 12:36 | HO.PM.IMPN ---
Subjective Subjective Date of Service: 04/23/22 Interval History: slowly improving. Still short of breath with minimal exertion Review of Systems denies chest pain Admits to shortness of breath with minimal movement denies nausea vomiting diarrhea Denies fever chills Physical Exam Vital Signs: Vital Signs: Last Vital Signs Temp 96.8 F 04/23/22 11:39 Pulse 72 04/23/22 12:05 Resp 18 04/23/22 12:05 BP 122/68 04/23/22 11:39 Pulse Ox 96 04/23/22 11:39 O2 Del Method 04/23/22 11:39 O2 Flow Rate 2 04/22/22 23:29 FiO2 31.9 04/19/22 03:10 Oxygen Flow Rate 2 04/19/22 00:20 BMI result Body Mass Index 22.1 Const: Other: visibly short of breath at rest. Able to speak in short sentences Resp: Other: extremely diminished at bases. Scant expiratory wheezes heard Cardio: Other: distant heart sounds; no S4; positive S1-S2; no S3 murmurs rubs or gallops GI: Other: soft nontender nondistended with normoactive bowel sounds Extrem: Other: no edema bilaterally Objective Data Active Medications Acamprosate (Acamprosate Calcium 333 Mg Tablet.) 333 mg PO TID [facility] Last Admin: 04/23/22 10:14 Dose: 333 mg Documented By: WILLIS Acetaminophen (Acetaminophen 325 Mg Tablet) 650 mg PO Q6H PRN PRN Reason: Pain, Mild (Pain Scale 1-3) Albuterol/Ipratropium (Albuterol/Iprat 2.5/0.5mg 3 Ml Ampul.Neb) 3 ml INHALE RQ4H PRN PRN Reason: Shortness of Breath/Wheezing Albuterol/Ipratropium (Albuterol/Iprat 2.5/0.5mg 3 Ml Ampul.Neb) 3 ml INHALE RQ4H WHILE AWAKE [facility] Last Admin: 04/23/22 12:03 Dose: 3 ml Documented By: JOANA Benzonatate (Benzonatate 100 Mg Capsule) 100 mg PO TID PRN PRN Reason: Cough Buspirone HCl (Buspirone Hcl 5 Mg Tablet) 7.5 mg PO BID [facility] Last Admin: 04/23/22 10:13 Dose: 7.5 mg Documented By: WILLIS Docusate Sodium (Docusate Sodium 100 Mg Capsule) 100 mg PO DAILY PRN PRN Reason: Constipation Last Admin: 04/22/22 17:23 Dose: 100 mg Documented By: NIESHA-RIVSARAH Docusate Sodium (Docusate Sodium 100 Mg Capsule) 100 mg PO DAILY PRN PRN Reason: Constipation Enoxaparin Sodium (Enoxaparin Sodium 40 Mg/0.4 Ml Syringe) 40 mg SUBCUT Q24H [facility] Last Admin: 04/23/22 10:13 Dose: 40 mg Documented By: WILLIS Fluticasone Propionate (Fluticasone Propionate Nasal 16 Gm [place]) 1 spray NOSTRIL-B DAILY [facility] Last Admin: 04/23/22 10:14 Dose: 1 spray Documented By: WILLIS Folic Acid (Folic Acid 1 Mg Tablet) 1 mg PO DAILY [facility] Last Admin: 04/23/22 10:14 Dose: 1 mg Documented By: WILLIS Gabapentin (Gabapentin 100 Mg Capsule) 100 mg PO BID [facility] Last Admin: 04/19/22 15:24 Dose: 100 mg Documented By: LEROY Hydroxyzine HCl (Hydroxyzine Hcl 10 Mg Tablet) 10 mg PO Q24H PRN PRN Reason: Anxiety Last Admin: 04/23/22 10:14 Dose: 10 mg Documented By: WILLIS Megestrol Acetate (Megestrol Acetate 400 Mg/10 Ml Oral.Susp) 200 mg PO BID [facility] Last Admin: 04/23/22 10:13 Dose: 200 mg Documented By: WILLIS Methylprednisolone Sodium Succinate (Methylprednisolone Sod Succ 40 Mg/Ml Vial) 40 mg IVPUSH Q6H [facility] Last Admin: 04/23/22 10:13 Dose: 40 mg Documented By: WILLIS Nicotine (Nicotine 21 Mg Patch.Td24) 21 mg TRANSDERMA DAILY [facility] Last Admin: 04/23/22 10:14 Dose: 21 mg Documented By: WILLIS Olanzapine (Olanzapine 10 Mg Tablet) 10 mg PO BEDTIME [facility] Last Admin: 04/22/22 21:24 Dose: 10 mg Documented By: MAIK Ondansetron HCl (Ondansetron Hcl 4 Mg/2 Ml Vial) 4 mg IVPUSH Q8H PRN PRN Reason: Nausea and Vomiting Pharmacy Consult (Consult Rx Perform Med Rec) 1 each MISCELLANE ONCE PRN PRN Reason: Consult order Psyllium Hydrophilic Mucilloid (Psyllium Seed 3.4 Gm Powd.Pack) 3.4 gm PO DAILY [facility] Last Admin: 04/23/22 10:14 Dose: 3.4 gm Documented By: WILLIS Sodium Chloride (0.9 % Sodium Chloride Flush 3 Ml Syringe) 3 ml IVFLUSH QSHIFT [facility] Last Admin: 04/23/22 10:15 Dose: 3 ml Documented By: WILLIS Tamsulosin HCl (Tamsulosin Hcl 0.4 Mg Capsule) 0.4 mg PO DAILY [facility] Last Admin: 04/23/22 10:14 Dose: 0.4 mg Documented By: WILLIS Tiotropium [place] (Tiotropium [place] 18 Mcg Cap.W.Dev) 1 puff INHALE RDAILY [facility] Last Admin: 04/22/22 12:08 Dose: Not Given Documented By: JUVE Non-Admin Reason: Patient Asleep Trazodone HCl (Trazodone Hcl 100 Mg Tablet) 100 mg PO BEDTIME PRN PRN Reason: Insomnia Labs CBC & Chem 7: 04/22/22 06:18 04/22/22 06:18 Assessment and Plan (1) Acute and chronic respiratory failure with hypoxia: Status: Acute (2) Acute exacerbation of chronic obstructive airways disease: Status: Acute Plan 66-year-old male with a past medical history of COPD on 2-8 L of oxygen at home presents with acute onset shortness of breath, cough and sputum production 1.Acute hypoxic respiratory failure( secondary to COPD exacerbation) - continue pulse dose steroids( no appreciable improvement) - azithromycin p.o. - titrate O2 as tolerated - DuoNebs q.4 hours while awake DVT prophylaxis: Lovenox patient will require ongoing hospitalization for IV steroids and supplemental O2 to treat COPD exacerbation Quality Stroke Does the patient have a stroke diagnosis?: No VTE Prior VTE?: No VTE Risk Level:: Medical - moderate - high VTE Device Contraindication: Treatment Not Indicated VTE Drug Contraindication: N/A - Med Ordered
--- NOTE | 2022-04-23 18:19 | PC.RT ---
pt demanding to see Dr. Ramirez c/o he cannot breathe. Sats 97% on 4 liters nasal cannula HR 104. pt is using accessory muscles but in no resp distress. pt just wants tea and sugar and saying his neb tx's dont really work. Dr. Ramirez was tigerconnected and he did resppond and will see if today.
[2022-04-23] MEDS: OLANZapine 10 MG TABLET PO (20:52)
--- NOTE | 2022-04-23 22:19 | PC.NURSE ---
pt refused vitals signs
[2022-04-24] VITALS (9 sets, daily range): BP systolic 122–152; BP diastolic 63–79; PULSE 56–105; RESP 16–26; TEMP 36.1–36.8; O2SAT 95–98
[2022-04-24] MEDS: methylPREDNISolone Sod Succ 40 MG/ML VIAL IVPUSH ×3 (03:43→20:12)
[2022-04-24 06:20] LABS: Basophils Percent Auto 0.1 % (0-2); Hematocrit 40.4 % (42.0-52.0); Hemoglobin 13.9 g/dl (14.0-18.0); Imm Gran Abs Auto 0.13 X10*3/uL (0.00-0.03); Imm Gran Pct Auto 0.8 % (0.0-0.4); Lymphocytes Absolute Auto 0.7 X10*3/uL (1.2-4.9); Lymphocytes Percent Auto 4.5 % (20-40); MANUAL DIFF FLAG SCAN; Mean Corpuscular HGB Conc 34.4 g/dl (31.0-36.0); Mean Corpuscular Volume 90.2 fL (80.0-98.0); Mean Platelet Volume 9.9 fL (9.4-12.4); Monocytes Absolute Auto 0.6 X10*3/uL (0.1-1.2); Monocytes Percent Auto 3.8 % (2-11); Neutrophils Absolute Auto 14.6 x10*3/uL (2.0-8.3); Neutrophils Percent Auto 90.8 % (45-73); Platelet Count 313 X10*3/uL (160-400); Red Blood Count 4.48 X10*6/uL (4.60-5.80); SCAN SMEAR FLAG 1; White Blood Count 16.1 X10*3/uL (4.8-10.8)
[2022-04-24 06:54] LABS: Alanine Aminotransferase 22 U/L (0-40); Albumin Level 3.1 g/dL (3.5-5.0); Alkaline Phosphatase 75 U/L (39-117); Anion Gap 15 (12-20); Aspartate Amino Transferase 11 U/L (5-37); Bilirubin Total 0.2 mg/dL (0.0-1.0); Blood Urea Nitrogen 15 mg/dL (9-16); Calcium 8.3 mg/dL (8.4-10.2); Carbon Dioxide 23 mmol/L (22-29); Chloride 102 mmol/L (96-108); Creatinine Clr Calc Pharmacy 111.5; Estimated Glomerular Filt Rate > 60; Glucose Fasting 138 mg/dL (60-99); Sodium 136 mmol/L (135-145); Total Protein 5.2 g/dL (6.5-8.0)
[2022-04-24 07:07] LABS: SLIDE REVIEW VERIFIED
[2022-04-24] MEDS: busPIRone HCl 5 MG TABLET 7.5 MG PO ×2 (08:50→20:13)
[2022-04-24] MEDS: Acamprosate Calcium 333 MG TABLET.DR PO ×2 (08:50→20:12)
[2022-04-24] MEDS: Tamsulosin HCL 0.4 MG CAPSULE PO (08:51)
[2022-04-24] MEDS: Megestrol Acetate 400 MG/10 ML ORAL.SUSP 200 MG PO ×2 (08:51→20:13)
[2022-04-24] MEDS: Folic Acid 1 MG TABLET PO (08:51)
[2022-04-24] MEDS: Nicotine 21 MG PATCH.TD24 TRANSDERMA (08:52)
[2022-04-24] MEDS: 0.9 % Sodium Chloride Flush 3 ML SYRINGE IVFLUSH ×3 (08:53→23:44)
[2022-04-24] MEDS: Fluticasone Propionate Nasal 16 GM SPRAY 1 SPRAY NOSTRIL-B (08:53)
--- NOTE | 2022-04-24 12:22 | HO.PM.IMPN ---
Subjective Subjective Date of Service: 04/24/22 Interval History: slowly improving. Still short of breath able to lie flat Review of Systems denies chest pain Admits to shortness of breath with minimal movement denies nausea vomiting diarrhea Denies fever chills Physical Exam Vital Signs: Vital Signs: Last Vital Signs Temp 98.1 F 04/24/22 07:11 Pulse 72 04/24/22 07:11 Resp 18 04/24/22 07:11 BP 122/64 04/24/22 07:11 Pulse Ox 95 04/24/22 07:11 O2 Del Method 04/24/22 07:11 O2 Flow Rate 5 04/24/22 03:33 FiO2 31.9 04/19/22 03:10 Oxygen Flow Rate 2 04/19/22 00:20 BMI result Body Mass Index 22.1 Const: Other: visibly short of breath at rest. Able to speak in short sentences Resp: Other: extremely diminished at bases. Scant expiratory wheezes heard... essentially no change Cardio: Other: distant heart sounds; no S4; positive S1-S2; no S3 murmurs rubs or gallops GI: Other: soft nontender nondistended with normoactive bowel sounds Extrem: Other: no edema bilaterally Objective Data Active Medications Acamprosate (Acamprosate Calcium 333 Mg Tablet.) 333 mg PO TID [facility] Last Admin: 04/24/22 08:50 Dose: 333 mg Documented By: YUSUF Acetaminophen (Acetaminophen 325 Mg Tablet) 650 mg PO Q6H PRN PRN Reason: Pain, Mild (Pain Scale 1-3) Albuterol/Ipratropium (Albuterol/Iprat 2.5/0.5mg 3 Ml Ampul.Neb) 3 ml INHALE RQ4H PRN PRN Reason: Shortness of Breath/Wheezing Albuterol/Ipratropium (Albuterol/Iprat 2.5/0.5mg 3 Ml Ampul.Neb) 3 ml INHALE RQ4H WHILE AWAKE [facility] Last Admin: 04/24/22 08:37 Dose: Not Given Documented By: ERIC Non-Admin Reason: Patient Asleep Benzonatate (Benzonatate 100 Mg Capsule) 100 mg PO TID PRN PRN Reason: Cough Buspirone HCl (Buspirone Hcl 5 Mg Tablet) 7.5 mg PO BID [facility] Last Admin: 04/24/22 08:50 Dose: 7.5 mg Documented By: YUSUF Docusate Sodium (Docusate Sodium 100 Mg Capsule) 100 mg PO DAILY PRN PRN Reason: Constipation Last Admin: 04/22/22 17:23 Dose: 100 mg Documented By: N-RIVLA Docusate Sodium (Docusate Sodium 100 Mg Capsule) 100 mg PO DAILY PRN PRN Reason: Constipation Enoxaparin Sodium (Enoxaparin Sodium 40 Mg/0.4 Ml Syringe) 40 mg SUBCUT Q24H [facility] Last Admin: 04/24/22 08:52 Dose: Not Given Documented By: YUSUF Non-Admin Reason: Patient Refused Fluticasone Propionate (Fluticasone Propionate Nasal 16 Gm [place]) 1 spray NOSTRIL-B DAILY [facility] Last Admin: 04/24/22 08:53 Dose: 1 spray Documented By: YUSUF Folic Acid (Folic Acid 1 Mg Tablet) 1 mg PO DAILY [facility] Last Admin: 04/24/22 08:51 Dose: 1 mg Documented By: YUSUF Gabapentin (Gabapentin 100 Mg Capsule) 100 mg PO BID [facility] Last Admin: 04/19/22 15:24 Dose: 100 mg Documented By: LREOY Hydroxyzine HCl (Hydroxyzine Hcl 10 Mg Tablet) 10 mg PO Q24H PRN PRN Reason: Anxiety Last Admin: 04/23/22 10:14 Dose: 10 mg Documented By: WILLIS Megestrol Acetate (Megestrol Acetate 400 Mg/10 Ml Oral.Susp) 200 mg PO BID [facility] Last Admin: 04/24/22 08:51 Dose: 200 mg Documented By: YUSUF Methylprednisolone Sodium Succinate (Methylprednisolone Sod Succ 40 Mg/Ml Vial) 40 mg IVPUSH Q6H [facility] Last Admin: 04/24/22 08:52 Dose: 40 mg Documented By: YUSUF Nicotine (Nicotine 21 Mg Patch.Td24) 21 mg TRANSDERMA DAILY [facility] Last Admin: 04/24/22 08:52 Dose: 21 mg Documented By: YUSUF Olanzapine (Olanzapine 10 Mg Tablet) 10 mg PO BEDTIME [facility] Last Admin: 04/23/22 20:52 Dose: 10 mg Documented By: MAIK Ondansetron HCl (Ondansetron Hcl 4 Mg/2 Ml Vial) 4 mg IVPUSH Q8H PRN PRN Reason: Nausea and Vomiting Pharmacy Consult (Consult Rx Perform Med Rec) 1 each MISCELLANE ONCE PRN PRN Reason: Consult order Psyllium Hydrophilic Mucilloid (Psyllium Seed 3.4 Gm Powd.Pack) 3.4 gm PO DAILY [facility] Last Admin: 04/24/22 08:53 Dose: Not Given Documented By: YUSUF Non-Admin Reason: Patient Refused Sodium Chloride (0.9 % Sodium Chloride Flush 3 Ml Syringe) 3 ml IVFLUSH QSHIFT [facility] Last Admin: 04/24/22 08:53 Dose: 3 ml Documented By: YUSUF Tamsulosin HCl (Tamsulosin Hcl 0.4 Mg Capsule) 0.4 mg PO DAILY [facility] Last Admin: 04/24/22 08:51 Dose: 0.4 mg Documented By: YUSUF Tiotropium [place] (Tiotropium [place] 18 Mcg Cap.W.Dev) 1 puff INHALE RDAILY [facility] Last Admin: 04/24/22 08:37 Dose: Not Given Documented By: ERIC Non-Admin Reason: Patient Asleep Trazodone HCl (Trazodone Hcl 100 Mg Tablet) 100 mg PO BEDTIME PRN PRN Reason: Insomnia Labs CBC & Chem 7: 04/24/22 05:49 04/24/22 05:49 Labs: Laboratory Results - last 24 hr 04/24/22 04/24/22 05:49 05:49 MCV 90.2 MCH 31.0 MCHC 34.4 RDW 13.0 Plt Count 313 MPV 9.9 Immature Gran % (Auto) 0.8 H Neut % (Auto) 90.8 H Lymph % (Auto) 4.5 L [place] % (Auto) 3.8 Eos % (Auto) 0.0 Baso % (Auto) 0.1 Lymph # (Auto) 0.7 L [place] # (Auto) 0.6 Eos # (Auto) 0.0 Baso # (Auto) 0.0 Abs Immat Gran (auto) 0.13 H Absolute Neuts (auto) 14.6 H Absolute Nucleated RBC 0.000 Nucleated RBC % (auto) 0.0 Smear Tech's Comments VERIFIED Anion Gap 15 Estim Creat Clear Calc 111.5 Estimated GFR > 60 Fasting Glucose 138 H Calcium 8.3 L Total Bilirubin 0.2 AST 11 ALT 22 Alkaline Phosphatase 75 Total Protein 5.2 L Albumin 3.1 L Microbiology Microbiology Results: Microbiology 04/19/22 01:13 Blood Culture - Final Blood - Venous No growth after 5 days. 04/19/22 01:13 Blood Culture - Final Blood - Venous No growth after 5 days. 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 - titrate O2 as tolerated - DuoNebs q.4 hours while awake DVT prophylaxis: Lovenox patient will require ongoing hospitalization for IV steroids and supplemental O2 to treat COPD exacerbation Quality Stroke Does the patient have a stroke diagnosis?: No VTE Prior VTE?: No VTE Risk Level:: Medical - moderate - high VTE Device Contraindication: Treatment Not Indicated VTE Drug Contraindication: N/A - Med Ordered
[2022-04-24] MEDS: Benzonatate 100 MG CAPSULE PO (15:18)
[2022-04-24] MEDS: hydrOXYzine HCL 10 MG TABLET PO (15:18)
[2022-04-24] MEDS: Albuterol/Iprat 2.5/0.5MG 3 ML AMPUL.NEB INHALE ×3 (16:06→22:33)
[2022-04-24] MEDS: OLANZapine 10 MG TABLET PO (20:12)
[2022-04-24] MEDS: Milk of Magnesia 30 ML ORAL.SUSP 15 ML PO (21:51)
[2022-04-25 02:52] VITALS: PULSE 103; RESP 19; O2SAT 98
[2022-04-25] MEDS: Albuterol/Iprat 2.5/0.5MG 3 ML AMPUL.NEB INHALE ×3 (02:52→15:14)
[2022-04-25 03:56] VITALS: BP 146/68; PULSE 104; RESP 19; TEMP 36.3; O2SAT 97
[2022-04-25] MEDS: busPIRone HCl 5 MG TABLET 7.5 MG PO (09:45)
[2022-04-25] MEDS: Nicotine 21 MG PATCH.TD24 TRANSDERMA (09:46)
[2022-04-25] MEDS: Enoxaparin Sodium 40 MG/0.4 ML SYRINGE SUBCUT (09:46)
[2022-04-25] MEDS: Tamsulosin HCL 0.4 MG CAPSULE PO (09:46)
[2022-04-25] MEDS: Acamprosate Calcium 333 MG TABLET.DR PO (09:46)
[2022-04-25] MEDS: Folic Acid 1 MG TABLET PO (09:46)
[2022-04-25] MEDS: 0.9 % Sodium Chloride Flush 3 ML SYRINGE IVFLUSH (09:48)
[2022-04-25] MEDS: methylPREDNISolone Sod Succ 40 MG/ML VIAL IVPUSH (09:48)
[2022-04-25] MEDS: Fluticasone Propionate Nasal 16 GM SPRAY 1 SPRAY NOSTRIL-B (09:53)
[2022-04-25 11:19] VITALS: BP 138/54; PULSE 98; RESP 18; TEMP 37.1; O2SAT 99
[2022-04-25 12:17] VITALS: PULSE 105; RESP 20; O2SAT 97
--- NOTE | 2022-04-25 12:21 | PM.DS ---
DS: Providers Provider Date of Service: 04/25/22 Date of admission: 04/19/22 03:10 Date of discharge: 04/25/22 Primary care physician: APRYL Bah Consults: 04/19/22 08:24 Consult to Pulmonology Routine Consulting Provider: [facility] Reason for consultation: Acute respiratory failure sec to copd excerebation Has provider been notified: No DS: Diagnosis Discharge Diagnosis (1) Acute and chronic respiratory failure with hypoxia: Status: Acute (2) Acute exacerbation of chronic obstructive airways disease: Status: Acute DS: Summary Hospital Course Hospital Course: 58-year-old male with past medical history of advanced COPD oxygen dependent on between 2-8 L , schizophrenia, history of pneumothorax, was an active smoker presents the hospital with complaints of acute shortness of breath.? patient is sleeping and refusing to talk to me, I have asked him multiple times to wake up and give me a history and he just grounds and turns his face.? He has been on pleasant to even nurses calling 1 of the nurses bitch but otherwise not agitated. ? therefore history is obtained from ED PA. patient reports that he became short of breath on waking up about an hour ago, he is also complaining of a productive cough but he did not say when it started.? EMS found the patient to be hypoxic and had increased respiratory rate but he refused IV placement and nebulizer treatment and CPAP by EMS.? Right now he is on high-flow nasal cannula satting 98%. Hospital Course admitted to general medical floor; given IV pulse dose steroid over the next several days he improved to baseline and is medically stable for discharge home. He will complete a prednisone taper and follow-up with his PCP. He is encouraged to refrain from tobacco Time Spent with Patient Time attestation: Total time spent providing and/or coordinating discharge services: Discharge coordination time: Greater than 30 minutes Quality: Safe Use of Opioids Does Pt have an Active Cancer Diagnosis on the Problem List?: No Quality: Stroke Does the patient have a stroke diagnosis?: No Physical Exam Vital Signs: Vital Signs: Last Vital Signs Temp 98.7 F 04/25/22 11:19 Pulse 105 H 04/25/22 12:17 Resp 20 04/25/22 12:17 BP 138/54 L 04/25/22 11:19 Pulse Ox 99 04/25/22 11:19 O2 Del Method 04/25/22 11:19 O2 Flow Rate 4 04/25/22 11:19 FiO2 31.9 04/19/22 03:10 Oxygen Flow Rate 2 04/19/22 00:20 BMI result Body Mass Index 22.1 Const: Other: visibly short of breath at rest. Able to speak in short sentences Resp: Other: extremely diminished at bases. Scant expiratory wheezes heard... essentially no change Cardio: Other: distant heart sounds; no S4; positive S1-S2; no S3 murmurs rubs or gallops GI: Other: soft nontender nondistended with normoactive bowel sounds Extrem: Other: no edema bilaterally Discharge Plan Discharge Patient Disposition: Home Health Service Discharge Diagnosis: COPD exacerbation Referrals: All Nicholas PA [Primary Care Provider] - 1 Week Discharge Medications: Continued pseudoephedrine HCl [Sudafed] 30 mg Tablet 30 mg PO BID Rx Instructions: DNExceed 4 doses/24h olanzapine 10 mg Tablet 10 mg PO BEDTIME acetaminophen-codeine 300-30 mg tablet 1 tab PO BID PRN (Reason: Pain) psyllium Powder 1 tbsp PO DAILY Rx Instructions: mix into at least 8 oz of water or juice before administering tamsulosin 0.4 mg Capsule 0.4 mg PO DAILY trazodone 100 mg Tablet 100 mg PO BEDTIME PRN (Reason: Insomnia) benzonatate 100 mg Capsule 100 mg PO TID PRN (Reason: Cough) fluticasone propion-salmeterol [Advair Diskus] 500-50 mcg/dose Blister With Device 1 inh INHALATION BID docusate sodium 100 mg Capsule 100 mg PO DAILY PRN (Reason: Constipation) buspirone 7.5 mg Tablet 7.5 mg PO BID folic acid 1 mg Tablet 1 mg PO DAILY gabapentin 100 mg Capsule 100 mg PO BID albuterol sulfate 90 mcg/actuation Hfa Aerosol Inhaler 1 puff INHALATION Q4-6H PRN (Reason: Wheezing) hydroxyzine HCl 10 mg Tablet 10 mg PO Q24H PRN (Reason: Anxiety) acamprosate 333 mg Tablet,Delayed Release (Dr/Ec) 333 mg PO TID tiotropium bromide 2.5 mcg/actuation Mist 2 puff INHALATION DAILY megestrol 400 mg/10 mL (10 mL) Suspension 200 mg PO BID Discharge Orders: Discharge Order (Routine); Ordered 04/25/22 Ordered By: Taz Ramirez Diet: Advance to usual diet Activity on Discharge: As tolerated Stand Alone Forms: Patient Portal Discharge page Care Plan Goals: complete course of doxycycline and steroid taper as ordered Health Concerns: follow-up with PCP in 2 weeks Plan of Treatment: attempt to avoid tobacco Assessment: see discharge summary
[2022-04-25 15:16] VITALS: PULSE 97; RESP 20; O2SAT 96
[2022-04-25 15:26] VITALS: BP 161/74; PULSE 98; RESP 18; TEMP 37.4; O2SAT 97
--- NOTE | 2022-04-25 16:34 | MHC.CM.PN ---
PATIENT IS DC HOME WITH RESUMPTION OF HIS [facility] AND HIS COMMUNITY NURSE WHO SETS UP MEDICATIONS DAILY. FRIEND/ROOM MATE TO TRANSPORT. PATIENT AWARE THAT 18:00 TIME IS GOING TO BE ARRANGED WITH FLOOR AND HE WILL CALL HIS FRIEND.
== END 2022-04-25 18:10 | disposition home health service (06) | DRG 191 ==
LOC: HO.ED 01:26 → HO.EDOVER 03:21 → HO.S3 04-20 14:59
PROVIDERS: Physician Assistant; Admitting Provider Internal Medicine; Emergency Provider Emergency Medicine; PCP Physician Assistant Medical; Visit Provider Hospitalist
DX: J43.9 Emphysema, unspecified (principal); J91.8 Pleural effusion in other conditions classified elsewhere; D72.829 Elevated white blood cell count, unspecified; F20.9 Schizophrenia, unspecified; F17.210 Nicotine dependence, cigarettes, uncomplicated; Z20.822 Contact with and (suspected) exposure to COVID-19; Z99.81 Dependence on supplemental oxygen; Z91.14 Patient's other noncompliance with medication regimen; Z71.6 Tobacco abuse counseling; Z79.51 Long term (current) use of inhaled steroids; Z79.899 Other long term (current) drug therapy
CPT/HCPCS: 36415; 71045; 80048; 80053; 80076; 80307; 81003; 82077; 82803; 83605; 83735; 83880; 84145; 84484; 85025; 85379; 85610; 85730; 87040; 87635; 93005; 94640; 99285; J0456; J0696; J1650; J2920; J2930; J3475

== ENCOUNTER 2022-04-28 13:49 | Emergency (ER) | payer OTHER, MEDICARE, BC, SELFPAY ==
--- NOTE | ~2022-04-28 | XR_ITS ---
EXAMINATION: XR CHEST CLINICAL INFORMATION: Shortness of breath COMPARISON: 04/19/2022. TECHNIQUE: AP upright view of the chest was obtained. 3:26 PM FINDINGS: Emphysematous changes noted. No distinct airspace consolidation or vascular congestion noted. Hilar regions unremarkable. As noted previously there is some elevation of the peripheral left diaphragm. Blunting in the left costophrenic angle is improved though not completely resolved. XR/XR chest 1V IMPRESSION: Emphysematous changes. No dominant consolidation. Previously noted left pleural effusion is mildly improved.
--- NOTE | ~2022-04-28 | XR_ITS ---
EXAMINATION: XR ABDOMEN KUB CLINICAL INDICATION: Abdominal discomfort COMPARISON: Abdomen 09/21/2021 TECHNIQUE: AP view of the abdomen. FINDINGS: Nonobstructive bowel pattern. No abnormally dilated bowel loop. Moderate volume of stool scattered through colon. No radiopaque urinary calculus. There are vascular calcifications of aorta and iliac arteries. Compared to prior study of 09/21/2021 no substantial change. XR/XR KUB IMPRESSION: No acute abnormality of the abdomen.
[2022-04-28 13:54] VITALS: BP 132/56; PULSE 113; O2SAT 95
[2022-04-28 13:55] VITALS: BP 132/66; PULSE 117; RESP 24; TEMP 36.6; O2SAT 97; BMI 24.7
--- NOTE | 2022-04-28 14:13 | ECG_ITS ---
Test Reason : ABD PAIN Blood Pressure : / mmHG Vent. Rate : 111 BPM Atrial Rate : 111 BPM P-R Int : 118 ms QRS Dur : 066 ms QT Int : 312 ms P-R-T Axes : 085 066 075 degrees QTc Int : 424 ms Poor data quality, interpretation may be adversely affected Sinus tachycardia Otherwise normal ECG When compared with ECG of 19-APR-2022 00:43, Premature atrial complexes are no longer Present Referred By: Elizabeth Villalobos Electronically Signed By:JANIS STUART
--- NOTE | 2022-04-28 14:33 | PC.NURSE ---
Pt in bathroom at this time. Able to have bowel movement
--- NOTE | 2022-04-28 14:48 | ED_ITS ---
HPI - Abdominal Pain General Chief Complaint: Abdominal Pain Stated Complaint: CONSTIPATION, SOB Time Seen by Provider: 04/28/22 14:01 Source: patient Mode of arrival: EMS History of Present Illness HPI narrative: 66-year-old male who arrives via EMS with complaints that he has not been able to have a bowel movement for a few days despite trying Mag citrate, milk of magnesia. He denies any associated fever, chills, nausea, vomiting but states that he feels very uncomfortable. He denies any chest pain or palpitations. Related Data Home Medications Medication Instructions Recorded Confirmed acamprosate 333 mg tablet,delayed 333 mg PO TID 01/25/22 04/19/22 release acetaminophen 300 mg-codeine 30 mg 1 tab PO BID PRN Pain 01/25/22 04/19/22 tablet albuterol sulfate 90 mcg/actuation 1 puff inhalation Q4-6H PRN 01/25/22 04/19/22 aerosol inhaler Wheezing benzonatate 100 mg capsule 100 mg PO TID PRN Cough 01/25/22 04/19/22 buspirone 7.5 mg tablet 7.5 mg PO BID 01/25/22 04/19/22 docusate sodium 100 mg capsule 100 mg PO DAILY PRN Constipation 01/25/22 04/19/22 fluticasone 500 mcg-salmeterol 50 1 inh inhalation BID 01/25/22 04/19/22 mcg/dose blistr powdr for inhalation (Advair Diskus) folic acid 1 mg tablet 1 mg PO DAILY 01/25/22 04/19/22 gabapentin 100 mg capsule 100 mg PO BID 01/25/22 04/19/22 hydroxyzine HCl 10 mg tablet 10 mg PO Q24H PRN Anxiety 01/25/22 04/19/22 megestrol 400 mg/10 mL (10 mL) 200 mg PO BID 01/25/22 04/19/22 oral suspension olanzapine 10 mg tablet 10 mg PO BEDTIME 01/25/22 04/19/22 psyllium 1 tbsp PO DAILY 01/25/22 04/19/22 tamsulosin 0.4 mg capsule 0.4 mg PO DAILY 01/25/22 04/19/22 tiotropium bromide 2.5 2 puff inhalation DAILY 01/25/22 04/19/22 mcg/actuation mist for inhalation trazodone 100 mg tablet 100 mg PO BEDTIME PRN Insomnia 01/25/22 04/19/22 pseudoephedrine HCl 30 mg tablet 30 mg PO BID 04/19/22 04/19/22 (Sudafed) Previous Rx's Medication Instructions Recorded fluticasone propionate 50 2 spray intranasal DAILY #16 grams 04/25/22 mcg/actuation nasal spray,suspension (Flonase Allergy Relief) prednisone 10 mg tablet See Rx Instructions .Route 04/25/22 .COMPLEX #45 tabs Allergies Allergy/AdvReac Type Severity Reaction Status Date / Time tree and shrub pollen Allergy Mild Rash Verified 04/19/22 00:23 Review of Systems Review of Systems Pertinent positives and negatives as stated in HPI 10 point review of systems is otherwise negative. [facility] Past Medical History Source: nursing notes reviewed Medical History COPD (chronic obstructive pulmonary disease) COPD (chronic obstructive pulmonary disease) Emphysema lung Leukocytosis Pneumonia Pneumothorax Right inguinal hernia Schizophrenia Smoker in home Umbilical hernia Surgical History No pertinent past surgical history Family History Family History Father CAD (coronary artery disease) Social History Social History Household Members: Other Household Members Other:: roommate Housing: Other Housing Other:: [facility] in [place] - per pt Do you presently have visiting nurse or other home services: Yes Unable to assess alcohol history related to: Unknown Alcohol intake: current Alcohol intake frequency: a few times a month Alcohol type: beer Patient Tobacco Use Status: Current everyday Tobacco user Tobacco use type: Cigarette Cigarette Packs Per Day: 1 Cigarettes Per Day: 20.0 e-Cigarette/Vaping Use: Currently Using Second Hand Smoke Exposure: No Advance Directives: Yes Advance Directives on File: Yes Advance Directives Date on File: 03/22/21 service: Yes Current occupational status: 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 GENERAL: Well developed, well nourished, in no acute distress. HEAD: Normocephalic/atraumatic EYES: PERRLA, EOMI EARS: Ext canals without abnormality NOSE: Nares patent bilateral OROPHARYNX: no oral lesions noted, posterior pharynx clear and non-erythematous without noted tonsillar enlargement/erythema/exudates NECK: Supple, no adenopathy LUNGS: Increased work of breathing, tachypnea is noted, good inspiratory effort, patient is able to speak in complete sentences. SpO2<95> on 2 L nasal cannula baseline from home. CARDIOVASCULAR: Regular rate and rhythm without noted murmurs, no JVD or lower extremity edema. ABDOMEN: Soft, non-tender at this time after patient successfully had bowel movement, non-distended with bowel sounds. MUSCULOSKELETAL: No tenderness, deformities, or effusions noted on gross inspection. EXTREMITIES: No cyanosis, clubbing or edema. SKIN: Inspection of the skin reveals no rashes NEUROLOGIC: Alert and oriented x 4. Strength and sensation to light touch were grossly intact x 4. Course Course Course Narrative: 66-year-old male with history and clinical presentation consistent with constipation that was ultimately relieved here in the emergency room with a successful bowel movement. Patient states that he is feeling much better. Will obtain basic labs but likely patient will be discharged home with an aggressive bowel regimen. Review of investigations that patient allowed to be completed are without acute findings in the noted leukocytosis is consistent with course of steroids as patient is afebrile and otherwise asymptomatic. He is hemodynamically stable and will be discharged home. Reevaluation(s) Reevaluation #1: Informed that patient is declining any further lab work, stating that he came here to go poop which she has done in his otherwise looking forward to going home. Time: 15:12 MDM - Abdominal Pain Lab Data Result diagrams: 04/28/22 15:03 Labs: Lab Results 04/28/22 04/28/22 Range/Units 15:03 15:03 WBC 24.0 H (4.8-10.8) X10*3/uL RBC 4.70 (4.60-5.80) X10*6/uL Hgb 15.6 (14.0-18.0) g/dl Hct 44.6 (42.0-52.0) % MCV 94.9 (80.0-98.0) fL MCH 33.2 H (27.0-33.0) pg MCHC 35.0 (31.0-36.0) g/dl RDW 13.5 (11.0-16.0) % Plt Count 240 (160-400) X10*3/uL MPV 9.3 L (9.4-12.4) fL Immature Gran % (Auto) 2.7 H (0.0-0.4) % Neut % (Auto) 73.8 H (45-73) % Lymph % (Auto) 15.6 L (20-40) % [place] % (Auto) 6.7 (2-11) % Eos % (Auto) 0.7 (0-4) % Baso % (Auto) 0.5 (0-2) % Lymph # (Auto) 3.7 (1.2-4.9) X10*3/uL [place] # (Auto) 1.6 H (0.1-1.2) X10*3/uL Eos # (Auto) 0.2 (0.0-0.4) X10*3/uL Baso # (Auto) 0.1 (0.0-0.2) X10*3/uL Abs Immat Gran (auto) 0.65 H (0.00-0.03) X10*3/uL Absolute Neuts (auto) 17.7 H (2.0-8.3) x10*3/uL Absolute Nucleated RBC 0.000 (0.0-0.012) X10*3/uL Nucleated RBC % (auto) 0.0 (0.0-0.2) /100WBC Smear Tech's Comments VERIFIED Troponin I High Sens 8.4 D (<3.5-35.0) ng/L ECG Data Attestation: I personally reviewed and interpreted this ECG as follows: Prior ECG tracings: available for review Interpretation: Sinus tachycardia, HR-111, no STEMI, MS/QRS/QTC is within normal limits. Discharge Plan Discharge Clinical Impression: Constipation, COPD (chronic obstructive pulmonary disease) Patient Disposition: Home, Self-Care Instructions: High Fiber Diet (ED), Fleet Enema (ED), Constipation (ED), Polyethylene Glycol 3350 (By mouth) Additional Instructions: 1. Resume all home medications as prescribed. 2. Recommend [id number] MiraLax, per parent as directed on the outside packaging and start off with once daily use. Stop using this when you began having regular soft bowel movements on a daily basis. 3. Follow-up with your primary care provider by calling the office in setting up an appointment for re-evaluation Return to the ER for worsening symptoms. Prescriptions: No Action pseudoephedrine HCl [Sudafed] 30 mg Tablet 30 mg PO BID Rx Instructions: DNExceed 4 doses/24h prednisone 10 mg tablet See Rx Instructions .Route .COMPLEX Qty: 45 0RF Rx Instructions: 10 mg orally; 5 tabs p.o. daily x3 days; 4 tabs p.o. daily x3 days; 3 tabs daily x3 days; 2 tabs daily x3 days; 1 tab daily x3 days fluticasone propionate [Flonase Allergy Relief] 50 mcg/actuation spray,suspension 2 spray intranasal DAILY Qty: 16 0RF Rx Instructions: administer into each nostril olanzapine 10 mg Tablet 10 mg PO BEDTIME acetaminophen-codeine 300-30 mg tablet 1 tab PO BID PRN (Reason: Pain) psyllium Powder 1 tbsp PO DAILY Rx Instructions: mix into at least 8 oz of water or juice before administering tamsulosin 0.4 mg Capsule 0.4 mg PO DAILY trazodone 100 mg Tablet 100 mg PO BEDTIME PRN (Reason: Insomnia) benzonatate 100 mg Capsule 100 mg PO TID PRN (Reason: Cough) fluticasone propion-salmeterol [Advair Diskus] 500-50 mcg/dose Blister With Device 1 inh INHALATION BID docusate sodium 100 mg Capsule 100 mg PO DAILY PRN (Reason: Constipation) buspirone 7.5 mg Tablet 7.5 mg PO BID folic acid 1 mg Tablet 1 mg PO DAILY gabapentin 100 mg Capsule 100 mg PO BID albuterol sulfate 90 mcg/actuation Hfa Aerosol Inhaler 1 puff INHALATION Q4-6H PRN (Reason: Wheezing) hydroxyzine HCl 10 mg Tablet 10 mg PO Q24H PRN (Reason: Anxiety) acamprosate 333 mg Tablet,Delayed Release (Dr/Ec) 333 mg PO TID tiotropium bromide 2.5 mcg/actuation Mist 2 puff INHALATION DAILY megestrol 400 mg/10 mL (10 mL) Suspension 200 mg PO BID
[2022-04-28 14:53] VITALS: PULSE 101; RESP 20; O2SAT 98
[2022-04-28] MEDS: Albuterol/Iprat 2.5/0.5MG 3 ML AMPUL.NEB INHALE ×2 (14:53)
[2022-04-28 15:09] LABS: Basophils Absolute Auto 0.1 X10*3/uL (0.0-0.2); Basophils Percent Auto 0.5 % (0-2); Eosinophils Absolute Auto 0.2 X10*3/uL (0.0-0.4); Eosinophils Percent Auto 0.7 % (0-4); Hematocrit 44.6 % (42.0-52.0); Hemoglobin 15.6 g/dl (14.0-18.0); Imm Gran Abs Auto 0.65 X10*3/uL (0.00-0.03); Imm Gran Pct Auto 2.7 % (0.0-0.4); Lymphocytes Absolute Auto 3.7 X10*3/uL (1.2-4.9); Lymphocytes Percent Auto 15.6 % (20-40); MANUAL DIFF FLAG SCAN; Mean Corpuscular Hemoglobin 33.2 pg (27.0-33.0); Mean Corpuscular Volume 94.9 fL (80.0-98.0); Mean Platelet Volume 9.3 fL (9.4-12.4); Monocytes Absolute Auto 1.6 X10*3/uL (0.1-1.2); Monocytes Percent Auto 6.7 % (2-11); Neutrophils Absolute Auto 17.7 x10*3/uL (2.0-8.3); Neutrophils Percent Auto 73.8 % (45-73); Platelet Count 240 X10*3/uL (160-400); Red Cell Distribution Width 13.5 % (11.0-16.0); SCAN SMEAR FLAG 1
--- NOTE | 2022-04-28 15:12 | PC.NURSE ---
1ST SET OF BLOOD CULTURES AND SOME LABWORK OBTAINED. PT IS REFUSING FURTHER LABWORK TO BE DRAWN., RN AND PROVIDER MADE AWARE.
[2022-04-28 15:27] LABS: Troponin-I High Sensitivity 8.4 ng/L (<3.5-35.0)
[2022-04-28 15:35] LABS: SLIDE REVIEW VERIFIED
--- NOTE | 2022-04-28 17:01 | PC.NURSE ---
Pt resting comfortably awaiting EMS at this time
== END 2022-04-28 15:15 | disposition home or self-care (01) ==
PROVIDERS: Emergency Provider Student in an Organized Health Care Education/Training Program; PCP Physician Assistant Medical
DX: K59.00 Constipation, unspecified (principal); J44.9 Chronic obstructive pulmonary disease, unspecified; R00.0 Tachycardia, unspecified; F17.210 Nicotine dependence, cigarettes, uncomplicated
CPT/HCPCS: 36415; 71045; 74018; 84484; 85025; 87040; 93005; 94640; 99284

== ENCOUNTER 2022-05-13 18:16 | Inpatient (IN) | payer OTHER, MEDICARE, BC, SELFPAY ==
--- NOTE | ~2022-05-13 | XR_ITS ---
EXAMINATION: XR ABDOMEN KUB CLINICAL INDICATION: Fecal impaction. COMPARISON: CT abdomen and pelvis dated 10/06/2019; KUB dated 04/28/2022. TECHNIQUE: 2 AP views of the abdomen and pelvis are submitted. FINDINGS: There is a large amount of stool noted within the rectum, suggesting possible fecal impaction. There is further mild to moderate stool noted within the splenic flexure. No pathologic dilatation of large or small bowel loops is seen to suggest obstruction. No free intraperitoneal air is seen. There are no unusual soft tissue calcifications. There are right renal vascular calcifications again seen, consistent with prior CT findings (5:62 through 76). There are aortoiliofemoral atherosclerotic calcifications. No foreign body is seen. There is a mild thoracolumbar dextroscoliosis. XR/XR KUB IMPRESSION: Findings suggest possible rectal fecal impaction. No obstruction is seen, and there is no free intraperitoneal air.
--- NOTE | ~2022-05-13 | XR_ITS ---
EXAMINATION: XR CHEST CLINICAL INFORMATION: Shortness of breath COMPARISON: Chest x-ray on 04/28/2022 TECHNIQUE: Frontal view of the chest was obtained. FINDINGS: The cardiomediastinal silhouette is normal. The lungs are hyperinflated. There is new hazy opacity with bronchial wall thickening in the left upper lobe. There are bilateral chronic interstitial changes. Chronic blunting/elevation of the left lateral hemidiaphragm. No pleural effusions or pneumothoraces. XR/XR chest 1V IMPRESSION: New opacity in the left upper lobe may represent pneumonia in appropriate clinical setting.
--- NOTE | ~2022-05-13 | CT_ITS ---
EXAMINATION: CT ABDOMEN AND PELVIS WITHOUT CONTRAST CLINICAL INFORMATION: Abdominal pain COMPARISON: 05/06/2020 TECHNIQUE: Multidetector volumetric imaging was performed from the superior aspect of the liver through the pubic symphysis. Sagittal and coronal reformatted images were obtained on the technologist's workstation. This CT examination was performed using dose optimization techniques as appropriate, variously including the following: *Automated exposure control *Adjustment of mA and/or kV according to patient size (this includes techniques or standardized protocols for targeted exams where dose is matched to indication/reason for exam; i.e. extremities or head) *Use of iterative reconstruction technique DLP: 319 mGy-cm FINDINGS: LUNG BASES: Significant COPD. Small nodular density adjacent to the major fissure is unchanged. Resolved coarse interstitial infiltrate from previous exam. Mild residual LIVER, GALLBLADDER, AND BILIARY TREE: The liver is normal in size, shape, and attenuation. No focal hepatic lesion or biliary ductal dilatation is present. The gallbladder is unremarkable with no evidence of radiopaque gallstones, gallbladder wall thickening, or obvious pericholecystic inflammatory changes. PANCREAS: Unremarkable. SPLEEN: Unremarkable. ADRENAL GLANDS: Unremarkable. KIDNEYS AND URETERS: Nonobstructing renal calculi BLADDER: Unremarkable. GASTROINTESTINAL TRACT: Once again moderate rectosigmoid stool. Overall nonobstructive bowel pattern. Some mildly prominent small bowel loops but similar appearance to previous exam. ABDOMINAL WALL: No significant hernia is appreciated. LYMPH NODES: Normal. VASCULAR: Atherosclerotic changes PELVIC VISCERA: Unremarkable. OSSEOUS STRUCTURES: Unremarkable. CT/CT abdomen pelvis wo IV con IMPRESSION: Limited from noncontrast intravenous or oral contrast at study. Given this no acute finding is felt to be present. The bowel pattern overall is nonobstructing. Once again moderate rectosigmoid stool. Fleischner guidelines were followed.
--- NOTE | ~2022-05-13 | CT_ITS ---
EXAMINATION: CT ANGIOGRAM OF THE CHEST WITH AND WITHOUT CONTRAST (CT PULMONARY ANGIOGRAM FOR PE) CLINICAL INFORMATION: Reason for Exam tachycardia sob hypoxia COMPARISON: CT abdomen pelvis and chest radiograph dated 05/13/2022 TECHNIQUE: Prior to contrast administration, noncontrast localization images were obtained. Subsequently, multidetector volumetric imaging was performed from the thoracic inlet to below the diaphragms following the administration of 80 mL Omnipaque 350 intravenous contrast. No contrast reaction reported Sagittal, coronal, and MIP oblique sagittal reformatted images were obtained on the CT workstation, uploaded to PACS, and reviewed. This CT examination was performed using dose optimization techniques as appropriate, variously including the following: *Automated exposure control *Adjustment of mA and/or kV according to patient size (this includes techniques or standardized protocols for targeted exams where dose is matched to indication/reason for exam; i.e. extremities or head) *Use of iterative reconstruction technique Total exam dose-length product 201 mGy-cm FINDINGS: QUALITY OF STUDY/CONTRAST BOLUS: Satisfactory. PULMONARY ARTERIES: No central or segmental pulmonary emboli. THORACIC AORTA: No aneurysm or dissection. Calcific atherosclerosis in the thoracic aorta. LUNG: Severe centrilobular pulmonary emphysema diffusely. Dependent secretions are evident within the left mainstem bronchus. Endobronchial opacities in the lung bases may correspond to explore gaining are areas of aspiration secretions. There is marked consolidation within the left upper lobe involving the apical posterior segment primarily, consistent with pneumonia. More minimal consolidation in the anterior segment in the lingular segments. No additional areas of significant consolidation are identified. There is a solid subpleural nodule in the right upper lobe laterally measuring 4 mm in average diameter, image 243 of series 7. A few perifissural nodules are identified. A 3 mm nodule is present in the lateral aspect of the right lower lobe on image 49 of series 7. PLEURA: No pleural effusion or pneumothorax. MEDIASTINUM: Normal heart size. No pericardial effusion. No hilar or mediastinal lymphadenopathy. No evidence of septal bowing or right heart strain. Coronary artery atherosclerotic calcifications are noted. CHEST WALL/AXILLA: No axillary or internal mammary lymphadenopathy. OSSEOUS STRUCTURES: No acute or suspicious osseous abnormality. There is an hypoplastic left fifth rib, possibly developmental or postoperative. UPPER ABDOMEN: Unremarkable. No reflux of contrast into the hepatic veins to suggest elevated right heart pressures. CT/CT angio chest PE protocol IMPRESSION: 1. No central or segmental pulmonary emboli. 2. Left upper lobe pneumonia. Radiographic follow-up is advised to verify resolution. 3. Severe centrilobular pulmonary emphysema. Two solid pulmonary nodules in the right lung measuring up to 4 mm in diameter. According to the UPDATED 2017 Fleischner Society recommendations, the advised follow-up imaging for solid nodules < 6 mm is: HIGH RISK PATIENT: Optional CT at 12 months. .
--- NOTE | ~2022-05-13 | XR_ITS ---
EXAMINATION: XR CHEST CLINICAL INFORMATION: Shortness of breath and hypoxia COMPARISON: Previous x-ray 05/13/2022 TECHNIQUE: Frontal view of the chest was obtained. FINDINGS: The cardiac and mediastinal contours are stable. There is evidence of emphysema. There is worsening left upper lobe airspace disease probably representing pneumonia. There may be cystic or bronchiectatic changes as that appear increased as well. The lungs are otherwise clear. There is no pleural effusion or pneumothorax. No acute bone abnormality. XR/XR chest 1V IMPRESSION: Worsening left upper lobe pneumonia. Emphysema.
[2022-05-13 18:31] VITALS: BP 133/67; BP 145/67; PULSE 112; PULSE 113; RESP 20; O2SAT 100; BMI 23.6
--- NOTE | 2022-05-13 18:40 | ED_ITS ---
HPI - Abdominal Pain General Chief Complaint: General Medical Stated Complaint: constipation sob Time Seen by Provider: 05/13/22 18:40 Source: patient Mode of arrival: ambulatory Limitations: no limitations History of Present Illness HPI narrative: Patient with history of severe COPD and constipation due to having his bowel movement for last 4-5 days, feels constipated also patient has chronic shortness of breath on oxygen 5 L via nasal cannula at home and was saturating 99% when EMS arrived Related Data Home Medications Medication Instructions Recorded Confirmed acamprosate 333 mg tablet,delayed 333 mg PO TID 01/25/22 04/19/22 release acetaminophen 300 mg-codeine 30 mg 1 tab PO BID PRN Pain 01/25/22 04/19/22 tablet albuterol sulfate 90 mcg/actuation 1 puff inhalation Q4-6H PRN 01/25/22 04/19/22 aerosol inhaler Wheezing benzonatate 100 mg capsule 100 mg PO TID PRN Cough 01/25/22 04/19/22 buspirone 7.5 mg tablet 7.5 mg PO BID 01/25/22 04/19/22 docusate sodium 100 mg capsule 100 mg PO DAILY PRN Constipation 01/25/22 04/19/22 fluticasone 500 mcg-salmeterol 50 1 inh inhalation BID 01/25/22 04/19/22 mcg/dose blistr powdr for inhalation (Advair Diskus) folic acid 1 mg tablet 1 mg PO DAILY 01/25/22 04/19/22 gabapentin 100 mg capsule 100 mg PO BID 01/25/22 04/19/22 hydroxyzine HCl 10 mg tablet 10 mg PO Q24H PRN Anxiety 01/25/22 04/19/22 megestrol 400 mg/10 mL (10 mL) 200 mg PO BID 01/25/22 04/19/22 oral suspension olanzapine 10 mg tablet 10 mg PO BEDTIME 01/25/22 04/19/22 psyllium 1 tbsp PO DAILY 01/25/22 04/19/22 tamsulosin 0.4 mg capsule 0.4 mg PO DAILY 01/25/22 04/19/22 tiotropium bromide 2.5 2 puff inhalation DAILY 01/25/22 04/19/22 mcg/actuation mist for inhalation trazodone 100 mg tablet 100 mg PO BEDTIME PRN Insomnia 01/25/22 04/19/22 pseudoephedrine HCl 30 mg tablet 30 mg PO BID 04/19/22 04/19/22 (Sudafed) Previous Rx's Medication Instructions Recorded fluticasone propionate 50 2 spray intranasal DAILY #16 grams 04/25/22 mcg/actuation nasal spray,suspension (Flonase Allergy Relief) prednisone 10 mg tablet See Rx Instructions .Route 04/25/22 .COMPLEX #45 tabs Allergies Allergy/AdvReac Type Severity Reaction Status Date / Time tree and shrub pollen Allergy Mild Rash Verified 04/19/22 00:23 Review of Systems Review of Systems Yes all other systems are reviewed and are negative [facility] Past Medical History Medical History COPD (chronic obstructive pulmonary disease) COPD (chronic obstructive pulmonary disease) COPD (chronic obstructive pulmonary disease) Emphysema lung Leukocytosis Pneumonia Pneumothorax Right inguinal hernia Schizophrenia Smoker in home Umbilical hernia Surgical History No pertinent past surgical history Family History Family History Father CAD (coronary artery disease) Social History Social History Household Members: Other Household Members Other:: roommate Housing: Other Housing Other:: [facility] in [place] - per pt Do you presently have visiting nurse or other home services: Yes Unable to assess alcohol history related to: Unknown Alcohol intake: current Alcohol intake frequency: a few times a month Alcohol type: beer Patient Tobacco Use Status: Current everyday Tobacco user Tobacco use type: Cigarette Cigarette Packs Per Day: 1 Cigarettes Per Day: 20.0 e-Cigarette/Vaping Use: Currently Using Second Hand Smoke Exposure: No Advance Directives: Yes Advance Directives on File: Yes Advance Directives Date on File: 03/22/21 service: Yes Current occupational status: 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 Oriented X3. No acute distress. Eyes: PERRLA, ENT: Pharynx normal. Oral Mucosa moist Neck: Normal inspection. Neck supple. CVS: Normal heart rate and rhythm. Pulses normal. Respiratory: Moderate respiratory distress on 5 L nasal cannula oxygen saturating 99% bilateral prolonged expiration Equal air entry bilateral, no rales Abdomen: Soft and nontender. Bowel sounds are present, no mass palpable, no CVA tenderness soft stool in the rectum Skin: Skin warm and dry. Normal skin color. Normal skin turgor. Extremities: No lower extremity edema. No calf tenderness Neuro: Oriented X 3. No motor deficit. MDM - Abdominal Pain MDM Narrative Medical decision making narrative: 2044 Manual disimpaction tried patient unable to push the stool unable to tolerate Fleet enema was given milk of magnesia and Dulcolax still not able to move his bowel will give Mag citrate. Chest x-ray showed new opacity in left upper lung will do the blood culture lactic acid give antibiotics patient has home oxygen 5 L at home feeling weak plan to admit Discharge Plan Discharge Clinical Impression: Fecal impaction, COPD exacerbation, Pneumonia Patient Disposition: Still a Patient Prescriptions: No Action pseudoephedrine HCl [Sudafed] 30 mg Tablet 30 mg PO BID Rx Instructions: DNExceed 4 doses/24h prednisone 10 mg tablet See Rx Instructions .Route .COMPLEX Qty: 45 0RF Rx Instructions: 10 mg orally; 5 tabs p.o. daily x3 days; 4 tabs p.o. daily x3 days; 3 tabs daily x3 days; 2 tabs daily x3 days; 1 tab daily x3 days fluticasone propionate [Flonase Allergy Relief] 50 mcg/actuation spray,suspension 2 spray intranasal DAILY Qty: 16 0RF Rx Instructions: administer into each nostril olanzapine 10 mg Tablet 10 mg PO BEDTIME acetaminophen-codeine 300-30 mg tablet 1 tab PO BID PRN (Reason: Pain) psyllium Powder 1 tbsp PO DAILY Rx Instructions: mix into at least 8 oz of water or juice before administering tamsulosin 0.4 mg Capsule 0.4 mg PO DAILY trazodone 100 mg Tablet 100 mg PO BEDTIME PRN (Reason: Insomnia) benzonatate 100 mg Capsule 100 mg PO TID PRN (Reason: Cough) fluticasone propion-salmeterol [Advair Diskus] 500-50 mcg/dose Blister With Device 1 inh INHALATION BID docusate sodium 100 mg Capsule 100 mg PO DAILY PRN (Reason: Constipation) buspirone 7.5 mg Tablet 7.5 mg PO BID folic acid 1 mg Tablet 1 mg PO DAILY gabapentin 100 mg Capsule 100 mg PO BID albuterol sulfate 90 mcg/actuation Hfa Aerosol Inhaler 1 puff INHALATION Q4-6H PRN (Reason: Wheezing) hydroxyzine HCl 10 mg Tablet 10 mg PO Q24H PRN (Reason: Anxiety) acamprosate 333 mg Tablet,Delayed Release (Dr/Ec) 333 mg PO TID tiotropium bromide 2.5 mcg/actuation Mist 2 puff INHALATION DAILY megestrol 400 mg/10 mL (10 mL) Suspension 200 mg PO BID
[2022-05-13] MEDS: Milk of Magnesia 30 ML ORAL.SUSP PO (19:42)
[2022-05-13] MEDS: Sodium Phosphate,Mono-Dibasic 133 ML ENEMA PR (19:42)
[2022-05-13] MEDS: bisacodyL 5 MG TABLET.DR 10 MG PO (19:42)
--- NOTE | 2022-05-13 20:10 | PC.NURSE ---
Enema administrated Patient instructed to hold in enema for aprox 5minutes. within 45seconds of RN leaving the room patient was sitting up on the commode pushing out enema liquid. Dr. Francisco lemus.
[2022-05-13 20:25] VITALS: BP 123/57; PULSE 107; RESP 18; O2SAT 100
[2022-05-13] MEDS: Albuterol Sulfate 2.5 MG, Albuterol/Iprat 2.5/0.5MG 3 ML 3 ML INHALE (21:13)
[2022-05-13 21:17] LABS: Basophils Absolute Auto 0.1 X10*3/uL (0.0-0.2); Basophils Percent Auto 0.3 % (0-2); Hematocrit 41.8 % (42.0-52.0); Hemoglobin 14.1 g/dl (14.0-18.0); Imm Gran Abs Auto 0.27 X10*3/uL (0.00-0.03); Imm Gran Pct Auto 0.9 % (0.0-0.4); Lymphocytes Absolute Auto 1.6 X10*3/uL (1.2-4.9); Lymphocytes Percent Auto 5.3 % (20-40); MANUAL DIFF FLAG SCAN; Mean Corpuscular HGB Conc 33.7 g/dl (31.0-36.0); Mean Corpuscular Hemoglobin 31.3 pg (27.0-33.0); Mean Corpuscular Volume 92.7 fL (80.0-98.0); Mean Platelet Volume 8.6 fL (9.4-12.4); Monocytes Absolute Auto 1.5 X10*3/uL (0.1-1.2); Monocytes Percent Auto 4.8 % (2-11); Neutrophils Absolute Auto 26.6 x10*3/uL (2.0-8.3); Neutrophils Percent Auto 88.7 % (45-73); Platelet Count 376 X10*3/uL (160-400); Red Blood Count 4.51 X10*6/uL (4.60-5.80); Red Cell Distribution Width 13.9 % (11.0-16.0); SCAN SMEAR FLAG 1
--- NOTE | 2022-05-13 21:21 | PC.NURSE ---
Blood culture #1 drawn. Patient refused blood culture #2.
[2022-05-13 21:30] LABS: Lactic Acid 2.2 mmol/L (0.5-2.0)
[2022-05-13 21:32] LABS: COVID-19 Test Negative (Negative)
--- NOTE | 2022-05-13 21:34 | PHA.MEDREC ---
Pharmacy Consult ? Medication Reconciliation Pharmacy has completed the medication reconciliation. Received list from [facility]. Regla Arceo, JoseD
[2022-05-13 21:35] LABS: Alanine Aminotransferase 23 U/L (0-40); Albumin Level 3.3 g/dL (3.5-5.0); Alkaline Phosphatase 85 U/L (39-117); Anion Gap 17 (12-20); Aspartate Amino Transferase 20 U/L (5-37); Bilirubin Total 1.2 mg/dL (0.0-1.0); Blood Urea Nitrogen 9 mg/dL (9-16); Carbon Dioxide 25 mmol/L (22-29); Chloride 98 mmol/L (96-108); Creatinine Clr Calc Pharmacy 90.6; Estimated Glomerular Filt Rate > 60; Glucose Random 106 mg/dL (60-115); Potassium 4.5 mmol/L (3.3-5.1); Sodium 135 mmol/L (135-145); Total Protein 6.3 g/dL (6.5-8.0)
[2022-05-13 21:37] LABS: SLIDE REVIEW VERIFIED
[2022-05-13 21:37] LABS: B Type Natriuretic Peptide 42 pg/mL (<100); Troponin-I High Sensitivity 4.4 ng/L (<3.5-35.0)
[2022-05-13] MEDS: Piperacillin Sodium/Tazobactam 3.375 GM in 0.9 % Sodium Chloride 50 ML IV (21:55)
[2022-05-13] MEDS: Lactulose 20 GM/30 ML SOLUTION PO (21:57)
[2022-05-13] MEDS: 0.9 % Sodium Chloride 500 ML IV (21:57)
--- NOTE | 2022-05-13 22:53 | PM.IMHP ---
History of Present Illness Date of Service: 05/13/22 Chief Complaint: Gen weakness 66-year-old male with a past medical history of COPD, chronic respiratory failure on 5 L of supplemental oxygen, history of pneumothorax, schizophrenia, tobacco dependence presented to the hospital today with a chief complaint of constipation. Patient reports that for the past 2-3 days he has been having difficulty having bowel movement. Also having pain in the abdomen. Denies any nausea or vomiting. Reports is also having cough with coli sputum production for the past 2 days. Denies any fevers and chills. Denies any sick contacts. Denies any nausea vomiting. Denies any urinary symptoms. Denies any chest pain or palpitations. Mentions that he uses 5 L of home oxygen at home. Review of all other systems is negative except mentioned above ER course: Per ER team patient noted to have fecal impaction, manual disimpaction was done. On labs noted to have elevated leukocytosis, chest x-ray showed upper lobe pneumonia. Patient was given antibiotics. Admitted to the hospital for further management. [facility] Medical History COPD (chronic obstructive pulmonary disease) COPD (chronic obstructive pulmonary disease) COPD (chronic obstructive pulmonary disease) Emphysema lung Leukocytosis Pneumonia Pneumothorax Right inguinal hernia Schizophrenia Smoker in home Umbilical hernia Family History Father CAD (coronary artery disease) Surgical History No pertinent past surgical history Social History Household Members: Other Household Members Other:: roommate Housing: Other Housing Other:: [employer] in [place] to [address] [place] - per pt Do you presently have visiting nurse or other home services: Yes Unable to assess alcohol history related to: Unknown Alcohol intake: current Alcohol intake frequency: a few times a month Alcohol type: beer Patient Tobacco Use Status: Current everyday Tobacco user Tobacco use type: Cigarette Cigarette Packs Per Day: 1 Cigarettes Per Day: 20.0 e-Cigarette/Vaping Use: Currently Using Second Hand Smoke Exposure: No Advance Directives: Yes Advance Directives on File: Yes Advance Directives Date on File: 03/22/21 service: Yes Current occupational status: 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 Meds Allergies Allergy/AdvReac Type Severity Reaction Status Date / Time tree and shrub pollen Allergy Mild Rash Verified 04/19/22 00:23 Active Medications: Current Medications Acamprosate (Acamprosate Calcium 333 Mg Tablet.Dr) 333 mg PO TID CUAUHTEMOC Acetaminophen (Acetaminophen 325 Mg Tablet) 650 mg PO Q6H PRN PRN Reason: Pain, Mild (Pain Scale 1-3) Albuterol Sulfate (Albuterol Sulfate 90 Mcg 8 Gm Inhaler) 1 puff INHALE Q4-6H PRN PRN Reason: Wheezing Albuterol/Ipratropium (Albuterol/Iprat 2.5/0.5mg 3 Ml Ampul.Neb) 3 ml INHALE RQ4H WHILE AWAKE PRN PRN Reason: Shortness of Breath/Wheezing Azithromycin (Azithromycin 500 Mg Tablet) 500 mg PO Q24H [place]HT[place] Benzonatate (Benzonatate 100 Mg Capsule) 100 mg PO TID PRN PRN Reason: Cough Buspirone HCl (Buspirone Hcl 5 Mg Tablet) 7.5 mg PO BID [place] Enoxaparin Sodium (Enoxaparin Sodium 40 Mg/0.4 Ml Syringe) 40 mg SUBCUT Q24H [facility] Ceftriaxone Sodium 1 gm/ (Sodium Chloride) 100 mls @ 200 mls/hr IV Q24H [facility] Melatonin (Melatonin 3 Mg Tablet) 6 mg PO BEDTIME PRN PRN Reason: Insomnia Pharmacy Consult (Consult Rx Perform Med Rec) 1 each MISCELLANE ONCE PRN PRN Reason: Consult order Senna (Sennosides 8.6 Mg Tablet) 17.2 mg PO BEDTIME PRN PRN Reason: Constipation Sodium Chloride (0.9 % Sodium Chloride Flush 3 Ml Syringe) 3 ml IVFLUSH QSHIFT [facility] Home Medications Medication Instructions Recorded Confirmed Last Taken Type acamprosate 333 mg tablet,delayed 333 mg PO TID 01/25/22 05/13/22 Unknown History release albuterol sulfate 90 mcg/actuation 1 puff inhalation Q4-6H PRN 01/25/22 05/13/22 Unknown History aerosol inhaler Wheezing benzonatate 100 mg capsule 100 mg PO TID PRN Cough 01/25/22 05/13/22 Unknown History buspirone 7.5 mg tablet 7.5 mg PO BID 01/25/22 05/13/22 Unknown History docusate sodium 100 mg capsule 100 mg PO DAILY PRN Constipation 01/25/22 05/13/22 Unknown History fluticasone 500 mcg-salmeterol 50 1 inh inhalation BID 01/25/22 05/13/22 Unknown History mcg/dose blistr powdr for inhalation (Advair Diskus) folic acid 1 mg tablet 1 mg PO DAILY 01/25/22 05/13/22 Unknown History gabapentin 100 mg capsule 100 mg PO BID 01/25/22 05/13/22 Unknown History hydroxyzine HCl 10 mg tablet 10 mg PO Q24H PRN Anxiety 01/25/22 05/13/22 Unknown History megestrol 400 mg/10 mL (10 mL) 200 mg PO BID 01/25/22 05/13/22 Unknown History oral suspension olanzapine 10 mg tablet 10 mg PO BEDTIME 01/25/22 05/13/22 Unknown History psyllium 1 tbsp PO DAILY 01/25/22 05/13/22 Unknown History tamsulosin 0.4 mg capsule 0.4 mg PO DAILY 01/25/22 05/13/22 Unknown History tiotropium bromide 2.5 2 puff inhalation DAILY 01/25/22 05/13/22 Unknown History mcg/actuation mist for inhalation trazodone 100 mg tablet 100 mg PO BEDTIME PRN Insomnia 01/25/22 05/13/22 Unknown History pseudoephedrine HCl 30 mg tablet 30 mg PO BID 04/19/22 05/13/22 Unknown History (Sudafed) guaifenesin 600 mg tablet, 600 mg PO BID 05/13/22 05/13/22 Unknown History extended release 12 hr Physical Exam Vital Signs and Narrative: Vital Signs: Last Vital Signs Pulse 107 H 05/13/22 20:25 Resp 18 05/13/22 20:25 BP 123/57 L 05/13/22 20:25 Pulse Ox 100 05/13/22 20:25 O2 Del Method 05/13/22 20:25 O2 Flow Rate 6 05/13/22 20:25 Oxygen Flow Rate 5 05/13/22 18:31 BMI result Body Mass Index 23.6 Gen: Appears be in no acute distress. On supplemental oxygen. Breathing comfortably. Speaks in full sentences. HEENT: NCAT, Moist mucosa. Pulmonary: Coarse breath sounds CVS: Normal S1-S2 Abdomen: BS+, Soft, Nontender Extremities: Warm well perfused Neuro: Alert and awake. Grossly nonfocal Results Labs CBC and Chem 7: 05/13/22 21:10 05/13/22 21:10 Labs: Laboratory Results - last 24 hr 05/13/22 05/13/22 05/13/22 21:08 21:08 21:09 MCV MCH MCHC RDW Plt Count MPV Immature Gran % (Auto) Neut % (Auto) Lymph % (Auto) Bacon % (Auto) Eos % (Auto) Baso % (Auto) Lymph # (Auto) Bacon # (Auto) Eos # (Auto) Baso # (Auto) Abs Immat Gran (auto) Absolute Neuts (auto) Absolute Nucleated RBC Nucleated RBC % (auto) Smear Tech's Comments Anion Gap Estim Creat Clear Calc Estimated GFR Random Glucose Lactic Acid 2.2 H* Calcium Total Bilirubin AST ALT Alkaline Phosphatase B-Natriuretic Peptide 42 Total Protein Albumin COVID-19 ([facility]OAN) Negative COVID-19 Clin Com See Note 05/13/22 05/13/22 21:10 21:10 MCV 92.7 MCH 31.3 MCHC 33.7 RDW 13.9 Plt Count 376 D MPV 8.6 L Immature Gran % (Auto) 0.9 H Neut % (Auto) 88.7 H Lymph % (Auto) 5.3 L Bacon % (Auto) 4.8 Eos % (Auto) 0.0 Baso % (Auto) 0.3 Lymph # (Auto) 1.6 Bacon # (Auto) 1.5 H Eos # (Auto) 0.0 Baso # (Auto) 0.1 Abs Immat Gran (auto) 0.27 H Absolute Neuts (auto) 26.6 H Absolute Nucleated RBC 0.000 Nucleated RBC % (auto) 0.0 Smear Tech's Comments VERIFIED Anion Gap 17 Estim Creat Clear Calc 90.6 Estimated GFR > 60 Random Glucose 106 Lactic Acid Calcium 9.0 D Total Bilirubin 1.2 H AST 20 D ALT 23 Alkaline Phosphatase 85 B-Natriuretic Peptide Total Protein 6.3 L D Albumin 3.3 L COVID-19 ([facility]) COVID-19 Clin Com Imaging Radiologist's Impressions: Impressions Chest X-Ray 05/13/22 20:14 IMPRESSION: New opacity in the left upper lobe may represent pneumonia in appropriate clinical setting. KUB X-Ray 05/13/22 21:40 IMPRESSION: Findings suggest possible rectal fecal impaction. No obstruction is seen, and there is no free intraperitoneal air. Abdomen/Pelvis CT 05/13/22 22:11 IMPRESSION: Limited from noncontrast intravenous or oral contrast at study. Given this no acute finding is felt to be present. The bowel pattern overall is nonobstructing. Once again moderate rectosigmoid stool. Fleischner guidelines were followed. Assessment and Plan (1) COPD exacerbation: Status: Acute (2) Fecal impaction: Status: Acute Plan 66-year-old male with a past medical history of COPD, chronic respiratory failure on 5 L of supplemental oxygen, history of pneumothorax, schizophrenia, tobacco dependence presented to the hospital today with a chief complaint of constipation/shortness of breath/cough or sputum production. Noted to have pneumonia/constipation with fecal impaction. Admitted for further management. Pneumonia: Continue ceftriaxone and azithromycin. Follow up cultures. Lactate mildly elevated. Given gentle IV fluids. Patient noted to have severe leukocytosis-likely in setting of chronic prednisone plus pneumonia plus dehydration. Will continue to monitor. COPD/chronic respiratory failure: Patient on 5 L of supplemental oxygen at home. Cara p.r.n.. Tried to obtain D-dimer/CT scan-patient refusing labs and CT scan. Constipation: Patient has fecal impaction. Status post manual disimpaction in the ER. Supportive care. Bowel regimen. DVT prophylaxis: Lovenox Code status: Full code Quality Stroke Does the patient have a stroke diagnosis?: No VTE Prior VTE?: No VTE Risk Level:: Medical - moderate - high VTE Device Contraindication: Treatment Not Indicated VTE Drug Contraindication: N/A - Med Ordered
[2022-05-13 23:15] LABS: Reflex Lactate? Lactic Acid Added
[2022-05-13 23:22] VITALS: BP 134/57; PULSE 103; RESP 14; TEMP 37.6; O2SAT 100
--- NOTE | 2022-05-13 23:50 | PC.NURSE ---
Phlebotomy reported to RN that patient is refusing additional lab draw. This RN attempted to draw and patient refused. Also declining CTA. Hospitalist feliz text and made aware
[2022-05-13] MEDS: Azithromycin 500 MG TABLET PO (23:58)
[2022-05-13] MEDS: cefTRIAXone sodium 1 GM in 0.9 % Sodium Chloride 100 ML IV (23:59)
--- NOTE | 2022-05-14 03:45 | PC.NURSE ---
Patient transfers to commode independently with a steady gait. He had a small BM, Declining linen/gown change. Patient used wipes independently to clean up. Mr. Esparza is ringing call mcgraw and screaming for help multiple times per hour. (upwards of 20+times) He is asking for staff help but then declining interventions offered by staff. Staff have offered oxygen monitoring, Recliner chair, Linen change, water/gingerale, additional nebs, staff requesting additional lab draw, patient declining all offers.
[2022-05-14 03:50] VITALS: PULSE 105; RESP 30; O2SAT 96
[2022-05-14] MEDS: Benzonatate 100 MG CAPSULE PO ×2 (03:59→22:48)
[2022-05-14] MEDS: Albuterol/Iprat 2.5/0.5MG 3 ML AMPUL.NEB INHALE ×2 (03:59→17:34)
[2022-05-14] MEDS: hydrOXYzine HCL 10 MG TABLET PO ×2 (04:00→22:49)
[2022-05-14] MEDS: Docusate Sodium 100 MG CAPSULE PO ×2 (04:00→22:48)
[2022-05-14] MEDS: Sennosides 8.6 MG TABLET 17.2 MG PO ×2 (04:00→22:50)
[2022-05-14] MEDS: traZODone HCL 100 MG TABLET PO ×2 (04:00→22:49)
[2022-05-14 05:17] VITALS: PULSE 101; RESP 24; O2SAT 97
--- NOTE | 2022-05-14 07:28 | PC.NURSE ---
Report received from ALANA Lacey. Per night nurse, pt was not agreeable to care and was up most of the night. Pt medicated and fell asleep around 4am. Upon first contact, pt is still sleeping. This nurse plans to let pt sleep until medications are due. Respirations are even and unlabored and SPO2 is 94% on 6L. Pt appears to be in no distress at this time.
--- NOTE | 2022-05-14 07:45 | P.PNIM_ITS ---
Subjective Subjective Date of Service: 05/14/22 Interval History: seen inf follow up with sob/pneumonia interval history: he is refusing labs draws, and wants to be let alone to sleepp Physical Exam Vital Signs: Vital Signs: Last Vital Signs Temp 99.7 F 05/13/22 23:22 Pulse 101 H 05/14/22 05:17 Resp 24 H 05/14/22 05:17 BP 134/57 L 05/13/22 23:22 Pulse Ox 97 05/14/22 05:17 O2 Del Method 05/14/22 05:17 O2 Flow Rate 5 05/14/22 05:17 Oxygen Flow Rate 5 05/13/22 18:31 BMI result Body Mass Index 23.6 Const: Other: Resp: CTA bilateral CVS: S1,S2,RRR GI: +BS, NT, no distention Skin: No rash Neuro: motor grossly intact Psych: flat affect Objective Data Active Medications Acamprosate (Acamprosate Calcium 333 Mg Tablet.) 333 mg PO TID [facility] Acetaminophen (Acetaminophen 325 Mg Tablet) 650 mg PO Q6H PRN PRN Reason: Pain, Mild (Pain Scale 1-3) Albuterol Sulfate (Albuterol Sulfate 90 Mcg 8 Gm Inhaler) 1 puff INHALE Q4H PRN PRN Reason: Wheezing Albuterol/Ipratropium (Albuterol/Iprat 2.5/0.5mg 3 Ml Ampul.Neb) 3 ml INHALE RQ4H WHILE AWAKE PRN PRN Reason: Shortness of Breath/Wheezing Last Admin: 05/14/22 03:59 Dose: 3 ml Documented By: ANGIE Azithromycin (Azithromycin 500 Mg Tablet) 500 mg PO Q24H [facility] Last Admin: 05/13/22 23:58 Dose: 500 mg Documented By: ANGIE Benzonatate (Benzonatate 100 Mg Capsule) 100 mg PO TID PRN PRN Reason: Cough Last Admin: 05/14/22 03:59 Dose: 100 mg Documented By: ANGIE Buspirone HCl (Buspirone Hcl 5 Mg Tablet) 7.5 mg PO BID [facility] Docusate Sodium (Docusate Sodium 100 Mg Capsule) 100 mg PO DAILY PRN PRN Reason: Constipation Last Admin: 05/14/22 04:00 Dose: 100 mg Documented By: ANGIE Enoxaparin Sodium (Enoxaparin Sodium 40 Mg/0.4 Ml Syringe) 40 mg SUBCUT Q24H S Last Admin: 05/13/22 23:52 Dose: Not Given Documented By: ANGIE Non-Admin Reason: Patient Refused Fluticasone/Vilanterol (Fluticasone/Vilanterol 200/25 Blst.W.Dev) 1 puff INHALE RDAILY [facility] Folic Acid (Folic Acid 1 Mg Tablet) 1 mg PO DAILY [facility] Gabapentin (Gabapentin 100 Mg Capsule) 100 mg PO BID [facility] Guaifenesin (Guaifenesin La 600 Mg Tab.Er.12h) 600 mg PO BID [facility] Hydroxyzine HCl (Hydroxyzine Hcl 10 Mg Tablet) 10 mg PO DAILY PRN PRN Reason: Anxiety Last Admin: 05/14/22 04:00 Dose: 10 mg Documented By: ANGIE Ceftriaxone Sodium 1 gm/ (Sodium Chloride) 100 mls @ 200 mls/hr IV Q24H [facility] Last Infusion: 05/14/22 00:35 Dose: 0 mls/hr Documented By: ANGIE Megestrol Acetate (Megestrol Acetate 400 Mg/10 Ml Oral.Susp) 200 mg PO BID [facility] Melatonin (Melatonin 3 Mg Tablet) 6 mg PO BEDTIME PRN PRN Reason: Insomnia Olanzapine (Olanzapine 10 Mg Tablet) 10 mg PO BEDTIME [facility] Pharmacy Consult (Consult Rx Perform Med Rec) 1 each MISCELLANE ONCE PRN PRN Reason: Consult order Pseudoephedrine HCl (Pseudoephedrine Hcl 30 Mg Tablet) 30 mg PO BID [facility] Senna (Sennosides 8.6 Mg Tablet) 17.2 mg PO BEDTIME PRN PRN Reason: Constipation Last Admin: 05/14/22 04:00 Dose: 17.2 mg Documented By: ANGIE Sodium Chloride (0.9 % Sodium Chloride Flush 3 Ml Syringe) 3 ml IVFLUSH QSHIFT [facility] Last Admin: 05/14/22 00:01 Dose: Not Given Documented By: ANGIE Non-Admin Reason: iv infusing Tamsulosin HCl (Tamsulosin Hcl 0.4 Mg Capsule) 0.4 mg PO DAILY [facility] Trazodone HCl (Trazodone Hcl 100 Mg Tablet) 100 mg PO BEDTIME PRN PRN Reason: Insomnia Last Admin: 05/14/22 04:00 Dose: 100 mg Documented By: ANGIE Labs CBC & Chem 7: 05/13/22 21:10 05/13/22 21:10 Labs: Laboratory Results - last 24 hr 05/13/22 05/13/22 05/13/22 21:08 21:08 21:09 MCV MCH MCHC RDW Plt Count MPV Immature Gran % (Auto) Neut % (Auto) Lymph % (Auto) Sullivan % (Auto) Eos % (Auto) Baso % (Auto) Lymph # (Auto) Sullivan # (Auto) Eos # (Auto) Baso # (Auto) Abs Immat Gran (auto) Absolute Neuts (auto) Absolute Nucleated RBC Nucleated RBC % (auto) Smear Tech's Comments Anion Gap Estim Creat Clear Calc Estimated GFR Random Glucose Lactic Acid 2.2 H* Calcium Total Bilirubin AST ALT Alkaline Phosphatase B-Natriuretic Peptide 42 Total Protein Albumin COVID-19 ([facility]) Negative COVID-19 Clin Com See Note 05/13/22 05/13/22 21:10 21:10 MCV 92.7 MCH 31.3 MCHC 33.7 RDW 13.9 Plt Count 376 D MPV 8.6 L Immature Gran % (Auto) 0.9 H Neut % (Auto) 88.7 H Lymph % (Auto) 5.3 L Sullivan % (Auto) 4.8 Eos % (Auto) 0.0 Baso % (Auto) 0.3 Lymph # (Auto) 1.6 Sullivan # (Auto) 1.5 H Eos # (Auto) 0.0 Baso # (Auto) 0.1 Abs Immat Gran (auto) 0.27 H Absolute Neuts (auto) 26.6 H Absolute Nucleated RBC 0.000 Nucleated RBC % (auto) 0.0 Smear Tech's Comments VERIFIED Anion Gap 17 Estim Creat Clear Calc 90.6 Estimated GFR > 60 Random Glucose 106 Lactic Acid Calcium 9.0 D Total Bilirubin 1.2 H AST 20 D ALT 23 Alkaline Phosphatase 85 B-Natriuretic Peptide Total Protein 6.3 L D Albumin 3.3 L COVID-19 ([facility]) COVID-19 Clin Com Assessment and Plan (1) COPD exacerbation: Status: Acute (2) Pneumonia: Status: Acute (3) Fecal impaction: Status: Acute Plan 66-year-old male with a past medical history of COPD, chronic respiratory failure on 5 L of supplemental oxygen, history of pneumothorax, schizophrenia, tobacco dependence presented to the hospital today with a chief complaint of constipation/shortness of breath/cough or sputum production.? Noted to have pneumonia/constipation with fecal impaction.? Admitted for further management.? Pneumonia: Continue ceftriaxone and azithromycin.? Follow up cultures.? Lactate mildly elevated.? Given gentle IV fluids.? Patient noted to have severe leukocytosis-likely in setting of chronic predniso ne plus pneumonia plus dehydration.? Will continue to monitor.? COPD/chronic respiratory failure:? Patient on 5 L of supplemental oxygen at home.? DuoNebs p.r.n..? Tried to obtain D-dimer/CT scan-patient refusing labs and CT scan. Constipation:? Patient has fecal impaction.? Status post manual disimpaction in the ER.? Supportive care.? Bowel regimen.? Leukocytosis--some element of chronicity but much high, he refused lab draw this morning, will reattempt later Schizophrenia--resume home meds BPH--Flomax DVT prophylaxis:? Lovenox Code status: Full code Quality Stroke Does the patient have a stroke diagnosis?: No VTE Prior VTE?: No VTE Risk Level:: Medical - moderate - high VTE Device Contraindication: Treatment Not Indicated VTE Drug Contraindication: N/A - Med Ordered
--- NOTE | 2022-05-14 09:08 | PC.NURSE ---
Pt used call [facility] requesting medications. This nurse entered the room and attempted to wake pt up to administer medications. Pt now refusing am meds stating i do not want those fucking medications. Talk to me after breakfast. Will re-attempt to give am medications once pt is provided with breakfast.
--- NOTE | 2022-05-14 10:58 | PC.NURSE ---
This nurse brought pt breakfast at 1030. Pt stated I don't like that breakfast, find me something different. Given sunbutter and jelly sandwich,jello and applesauce. Pt continues to refuse medications stating I said I want my medications later, I don't want no medications they don't work . Medications have been documented against in the MAR. Hospitalist would like to keep encouraging pt to participate in care. Pt persistently refusing care.
--- NOTE | 2022-05-14 11:14 | PC.NURSE ---
CT attempted to ask pt if he could participate in his CT scan. Pt refused. This RN spoke with pt about participating in care and pt adamantly refused CT. Hospitalist aware.
--- NOTE | 2022-05-14 12:09 | PC.NURSE ---
Pt requesting assistance with using the bathroom. Pt moved self to commode with no issue. Pt had large liquid bowel movement, stating that he feels some abdominal relief. This nurse changed pts linens while he was on the commode. This nurse asked if it was okay to take vital signs. Pt agreed to pulse ox only, no BP, no temperature
[2022-05-14 12:11] VITALS: PULSE 102; RESP 22; O2SAT 97
--- NOTE | 2022-05-14 16:08 | PC.NURSE ---
Pt continues to refuse medications. Pt demanding this RN to grab his water off the side table, and to leave the room.
[2022-05-14 17:34] VITALS: PULSE 66; RESP 16; O2SAT 96
[2022-05-14 21:12] VITALS: BP 140/64; PULSE 119; RESP 18; TEMP 37.5; O2SAT 95
[2022-05-14] MEDS: Melatonin 3 MG TABLET 6 MG PO (22:47)
[2022-05-14] MEDS: Azithromycin 500 MG TABLET PO (22:47)
[2022-05-14] MEDS: guaiFENesin LA 600 MG TAB.ER.12H PO (22:47)
[2022-05-14] MEDS: Gabapentin 100 MG CAPSULE PO (22:49)
[2022-05-14] MEDS: Acetaminophen 325 MG TABLET 650 MG PO (22:49)
[2022-05-14] MEDS: busPIRone HCl 5 MG TABLET 7.5 MG PO (22:50)
[2022-05-14] MEDS: cefTRIAXone sodium 1 GM in 0.9 % Sodium Chloride 100 ML IV (22:51)
[2022-05-14] MEDS: OLANZapine 10 MG TABLET PO (23:03)
[2022-05-14] MEDS: Megestrol Acetate 400 MG/10 ML ORAL.SUSP 200 MG PO (23:04)
[2022-05-14] MEDS: Acamprosate Calcium 333 MG TABLET.DR PO (23:04)
[2022-05-14 23:25] VITALS: BP 142/44; PULSE 126; RESP 20; O2SAT 95
--- NOTE | 2022-05-15 01:28 | PC.NURSE ---
Patient sleeping soundly. NAD, equal chest rise/fall.
[2022-05-15 04:33] VITALS: PULSE 110; RESP 18; O2SAT 95
--- NOTE | 2022-05-15 08:34 | PC.NURSE ---
Mya from the lab called, blood cultures have been cancelled as pt has refused to have blood draw. Will re order if pt agrees to have them done.
--- NOTE | 2022-05-15 09:10 | PC.NURSE ---
Pt refusing vital signs at this time. Reports not wanting to take the morning meds and wanting to sleep. Reports wanting pain medicine for a headache and will the rest of the medications at 1130. Current O2 Sat is at 97%. [place] text sent to .
--- NOTE | 2022-05-15 09:18 | P.PNIM_ITS ---
Subjective Subjective Date of Service: 05/15/22 Interval History: seen inf follow up with sob/pneumonia interval history: he was uncooperatative, asking me to go away but managed to examine him Physical Exam Vital Signs: Vital Signs: Last Vital Signs Temp 99.5 F 05/14/22 21:12 Pulse 110 H 05/15/22 04:33 Resp 18 05/15/22 04:33 BP 142/44 H 05/14/22 23:25 Pulse Ox 95 05/15/22 04:33 O2 Del Method 05/15/22 04:33 O2 Flow Rate 5 05/15/22 04:33 Oxygen Flow Rate 5 05/13/22 18:31 BMI result Body Mass Index 23.6 Const: Other: Resp: CTA bilateral CVS: S1,S2,RRR GI: +BS, NT, no distention Skin: No rash Neuro: motor grossly intact Psych: flat affect Objective Data Active Medications Acamprosate (Acamprosate Calcium 333 Mg Tablet.) 333 mg PO TID [facility] Last Admin: 05/14/22 23:04 Dose: 333 mg Documented By: ANGIE Acetaminophen (Acetaminophen 325 Mg Tablet) 650 mg PO Q6H PRN PRN Reason: Pain, Mild (Pain Scale 1-3) Last Admin: 05/14/22 22:49 Dose: 650 mg Documented By: ANGIE Albuterol Sulfate (Albuterol Sulfate 90 Mcg 8 Gm Inhaler) 1 puff INHALE Q4H PRN PRN Reason: Wheezing Albuterol/Ipratropium (Albuterol/Iprat 2.5/0.5mg 3 Ml Ampul.Neb) 3 ml INHALE RQ4H WHILE AWAKE PRN PRN Reason: Shortness of Breath/Wheezing Last Admin: 05/14/22 17:34 Dose: 3 ml Documented By: TAHMINA Azithromycin (Azithromycin 500 Mg Tablet) 500 mg PO Q24H [facility] Last Admin: 05/14/22 22:47 Dose: 500 mg Documented By: ANGIE Benzonatate (Benzonatate 100 Mg Capsule) 100 mg PO TID PRN PRN Reason: Cough Last Admin: 05/14/22 22:48 Dose: 100 mg Documented By: ANGIE Buspirone HCl (Buspirone Hcl 5 Mg Tablet) 7.5 mg PO BID [facility] Last Admin: 05/14/22 22:50 Dose: 7.5 mg Documented By: ANGIE Docusate Sodium (Docusate Sodium 100 Mg Capsule) 100 mg PO DAILY PRN PRN Reason: Constipation Last Admin: 05/14/22 22:48 Dose: 100 mg Documented By: ANGIE Enoxaparin Sodium (Enoxaparin Sodium 40 Mg/0.4 Ml Syringe) 40 mg SUBCUT Q24H [facility] Last Admin: 05/14/22 23:04 Dose: Not Given Documented By: ANGIE Non-Admin Reason: declined Fluticasone/Vilanterol (Fluticasone/Vilanterol 200/25 Blst.W.Dev) 1 puff INHALE RDAILY [facility] Last Admin: 05/14/22 07:59 Dose: Not Given Documented By: LB Non-Admin Reason: Patient Refused Folic Acid (Folic Acid 1 Mg Tablet) 1 mg PO DAILY [facility] Last Admin: 05/14/22 10:57 Dose: Not Given Documented By: LB Non-Admin Reason: Patient Refused Gabapentin (Gabapentin 100 Mg Capsule) 100 mg PO BID [facility] Last Admin: 05/14/22 22:49 Dose: 100 mg Documented By: ANGIE Guaifenesin (Guaifenesin La 600 Mg Tab.Er.12h) 600 mg PO BID [facility] Last Admin: 05/14/22 22:47 Dose: 600 mg Documented By: ANGIE Hydroxyzine HCl (Hydroxyzine Hcl 10 Mg Tablet) 10 mg PO DAILY PRN PRN Reason: Anxiety Last Admin: 05/14/22 22:49 Dose: 10 mg Documented By: ANGIE Ceftriaxone Sodium 1 gm/ (Sodium Chloride) 100 mls @ 200 mls/hr IV Q24H [facility] Last Infusion: 05/14/22 23:27 Dose: 0 mls/hr Documented By: ANGIE Megestrol Acetate (Megestrol Acetate 400 Mg/10 Ml Oral.Susp) 200 mg PO BID [facility] Last Admin: 05/14/22 23:04 Dose: 200 mg Documented By: ANGIE Melatonin (Melatonin 3 Mg Tablet) 6 mg PO BEDTIME PRN PRN Reason: Insomnia Last Admin: 05/14/22 22:47 Dose: 6 mg Documented By: ANGIE Olanzapine (Olanzapine 10 Mg Tablet) 10 mg PO BEDTIME [facility] Last Admin: 05/14/22 23:03 Dose: 10 mg Documented By: ANGIE Pharmacy Consult (Consult Rx Perform Med Rec) 1 each MISCELLANE ONCE PRN PRN Reason: Consult order Pseudoephedrine HCl (Pseudoephedrine Hcl 30 Mg Tablet) 30 mg PO BID [facility] Last Admin: 05/14/22 23:04 Dose: Not Given Documented By: ANGIE Non-Admin Reason: declined Senna (Sennosides 8.6 Mg Tablet) 17.2 mg PO BEDTIME PRN PRN Reason: Constipation Last Admin: 05/14/22 22:50 Dose: 17.2 mg Documented By: ANGIE Sodium Chloride (0.9 % Sodium Chloride Flush 3 Ml Syringe) 3 ml IVFLUSH QSHIFT [facility] Last Admin: 05/15/22 00:00 Dose: Not Given Documented By: ANGIE Non-Admin Reason: infusing Tamsulosin HCl (Tamsulosin Hcl 0.4 Mg Capsule) 0.4 mg PO DAILY [facility] Last Admin: 05/14/22 10:58 Dose: Not Given Documented By: LB Non-Admin Reason: Patient Refused Trazodone HCl (Trazodone Hcl 100 Mg Tablet) 100 mg PO BEDTIME PRN PRN Reason: Insomnia Last Admin: 05/14/22 22:49 Dose: 100 mg Documented By: ANGIE Labs CBC & Chem 7: 05/13/22 21:10 05/13/22 21:10 Microbiology Microbiology Results: Microbiology 05/13/22 21:20 Blood Culture - Final Blood - Venous 05/13/22 21:40 Blood Culture - Preliminary Blood - Venous No growth after 24 hours. Assessment and Plan (1) Pneumonia: Status: Acute Plan 66-year-old male with a past medical history of COPD, chronic respiratory failure on 5 L of supplemental oxygen, history of pneumothorax, schizophrenia, tobacco dependence presented to the hospital today with a chief complaint of constipation/shortness of breath/cough or sputum production.? Noted to have pneumonia/constipation with fecal impaction.? Admitted for further management.? Pneumonia: afebrile, still on high amount of O2 Continue ceftriaxone and azithromycin.? Follow up cultures.? Patient noted to have severe leukocytosis-likely in setting of chronic prednisone plus pneumonia plus dehydration.? Will continue to monitor.? He has been refusing lab draws COPD/chronic respiratory failure:? Patient on 5 L of supplemental oxygen at home.? DuoNebs p.r.n..? Tried to obtain D-dimer/CT scan-patient refusing labs and CT scan. Constipation:? Patient has fecal impaction.? Status post manual disimpaction in the ER.? Supportive care.? Bowel regimen.? Leukocytosis--some element of chronicity but much high, he refused lab draw this morning, will reattempt later Schizophrenia--resume home meds BPH--Flomax need for inaptient: treatement for Pneumonia with IV Abx and monitoring of res piratory status in setting of severe chronic respiraoty failure DVT prophylaxis:? Lovenox Code status: Full code Quality Stroke Does the patient have a stroke diagnosis?: No VTE Prior VTE?: No VTE Risk Level:: Medical - moderate - high VTE Device Contraindication: Treatment Not Indicated VTE Drug Contraindication: N/A - Med Ordered
--- NOTE | 2022-05-15 13:48 | MHC.CM.PN ---
Attempted to meet with patient in regards to discharge planning. Patient currently sleeping. No family present. Will attempt to meet with patient again. Continue to monitor for d/c needs.
--- NOTE | 2022-05-15 13:49 | MHC.CM.PN ---
Attempted to meet with patient in regards to discharge planning. Nursing care currently being provided. Will attempt to meet again. Continue to monitor for d/c needs.
[2022-05-15 15:46] VITALS: BP 156/70; PULSE 112; RESP 24; O2SAT 95
--- NOTE | 2022-05-15 15:50 | PC.NURSE ---
Pt refused Campral medication, reports not needing that for alcohol withdrawal. Pt reports diffculty breathing and request a breathing treatment. Current o2 sat 95% on 5L nc. Respiratory rate 20. Pt exhibiting difficulty breathing with mild substernal retraction. Bilateral coarse crackles noted. Respiratory therapy contacted and at the bedside.
[2022-05-15] MEDS: Albuterol/Iprat 2.5/0.5MG 3 ML AMPUL.NEB INHALE ×2 (15:59→19:48)
[2022-05-15 16:00] VITALS: PULSE 127; RESP 22; O2SAT 97
[2022-05-15 19:48] VITALS: PULSE 138; RESP 20; O2SAT 92
[2022-05-15] MEDS: busPIRone HCl 5 MG TABLET 7.5 MG PO (21:15)
[2022-05-15] MEDS: Gabapentin 100 MG CAPSULE PO (21:15)
[2022-05-15] MEDS: OLANZapine 10 MG TABLET PO (21:15)
[2022-05-15] MEDS: guaiFENesin LA 600 MG TAB.ER.12H PO (21:15)
[2022-05-15] MEDS: Acamprosate Calcium 333 MG TABLET.DR PO (21:16)
[2022-05-15 22:37] VITALS: PULSE 122; RESP 20; O2SAT 94
[2022-05-15] MEDS: Albuterol Sulfate 90 MCG 8 GM INHALER 1 PUFF INHALE (22:37)
[2022-05-16] VITALS (11 sets, daily range): BP systolic 101–170; BP diastolic 52–74; PULSE 80–145; RESP 12–33; TEMP 36.3–37.4; O2SAT 90–99; BMI 23.6
[2022-05-16] MEDS: Albuterol/Iprat 2.5/0.5MG 3 ML AMPUL.NEB INHALE ×3 (00:09→20:03)
[2022-05-16] MEDS: cefTRIAXone sodium 1 GM in 0.9 % Sodium Chloride 100 ML IV ×2 (00:19→22:46)
[2022-05-16] MEDS: Enoxaparin Sodium 40 MG/0.4 ML SYRINGE SUBCUT ×2 (00:21→22:46)
[2022-05-16] MEDS: Azithromycin 500 MG TABLET PO ×2 (00:22→22:46)
--- NOTE | 2022-05-16 03:56 | PC.NURSE ---
Patient refusing to keep tele monitor and oximeter monitor on.
[2022-05-16] MEDS: Benzonatate 100 MG CAPSULE PO (04:01)
[2022-05-16] MEDS: Acetaminophen 325 MG TABLET 650 MG PO ×2 (04:15→20:11)
--- NOTE | 2022-05-16 04:17 | PC.NURSE ---
Patient requesting nebulizer treatment, patient reports feeling SOB. O2 Sat 95% on O2 at 5 LPM NC. Respiratory therapist called and will arrive to administer resp treatment.
--- NOTE | 2022-05-16 04:26 | PC.NURSE ---
Respiratory therapist at bedside administering updraft treatment.
[2022-05-16] MEDS: Albuterol Sulfate 90 MCG 8 GM INHALER 1 PUFF INHALE (05:48)
[2022-05-16] MEDS: Tamsulosin HCL 0.4 MG CAPSULE PO (08:24)
[2022-05-16] MEDS: Megestrol Acetate 400 MG/10 ML ORAL.SUSP 200 MG PO ×2 (08:24→20:11)
[2022-05-16] MEDS: Pseudoephedrine HCL 30 MG TABLET PO (08:24)
[2022-05-16] MEDS: 0.9 % Sodium Chloride Flush 3 ML SYRINGE IVFLUSH ×3 (08:24→20:12)
[2022-05-16] MEDS: guaiFENesin LA 600 MG TAB.ER.12H PO ×2 (08:25→20:11)
[2022-05-16] MEDS: busPIRone HCl 5 MG TABLET 7.5 MG PO ×2 (08:25→20:11)
[2022-05-16] MEDS: Acamprosate Calcium 333 MG TABLET.DR PO ×2 (08:25→20:11)
[2022-05-16] MEDS: Gabapentin 100 MG CAPSULE PO ×2 (08:26→20:12)
[2022-05-16] MEDS: Folic Acid 1 MG TABLET PO (08:26)
--- NOTE | 2022-05-16 11:44 | MHC.SLORD ---
Speech Language Pathology Order Status: QUALITY ASSURANCE NURSE attempted to see pt for bedside swallow evaluation this morning. QUALITY ASSURANCE NURSE was unable to wake pt. Will attempt again this afternoon.
--- NOTE | 2022-05-16 12:19 | P.PNIM_ITS ---
Subjective Subjective Date of Service: 05/16/22 Interval History: feeling better this morning , complaining of less shortness of breath, noted to have tachycardia, also decreased by mouth intake be due to no dentures, oxygenation stable no fevers no other acute issues overnight. Review of Systems GAS BRAZER no headache no dizziness CVS no chest pain, no palpitation GI no nausea no vomiting skin no rash Review of Systems: Yes all other systems are reviewed and are negative Physical Exam Vital Signs: Vital Signs: Last Vital Signs Temp 98.4 F 05/16/22 11:15 Pulse 103 H 05/16/22 11:15 Resp 12 05/16/22 11:15 BP 101/57 L 05/16/22 11:15 Pulse Ox 99 05/16/22 11:15 O2 Del Method 05/16/22 11:15 O2 Flow Rate 3 05/16/22 11:15 Oxygen Flow Rate 5 05/13/22 18:31 BMI result Body Mass Index 23.6 Const: Other: General awake alert x3 in no acute distress. Neck no JVD. CVS tachycardia Respiratory lungs clear to auscultation, no respiratory distress, tachypneic, no wheeze, no rhonchi. Gastrointestinal abdomen soft, nontender, bowel sounds audible, Extremities no edema. Neuro nonfocal Skin no rash Objective Data Active Medications Acamprosate (Acamprosate Calcium 333 Mg Tablet.) 333 mg PO TID [facility] Last Admin: 05/16/22 08:25 Dose: 333 mg Documented By: ANA LAURA Acetaminophen (Acetaminophen 325 Mg Tablet) 650 mg PO Q6H PRN PRN Reason: Pain, Mild (Pain Scale 1-3) Last Admin: 05/16/22 04:15 Dose: 650 mg Documented By: LAXMI Albuterol Sulfate (Albuterol Sulfate 90 Mcg 8 Gm Inhaler) 1 puff INHALE Q4H PRN PRN Reason: Wheezing Last Admin: 05/16/22 05:48 Dose: 1 puff Documented By: LAXMI Albuterol/Ipratropium (Albuterol/Iprat 2.5/0.5mg 3 Ml Ampul.Neb) 3 ml INHALE RQ4H WHILE AWAKE PRN PRN Reason: Shortness of Breath/Wheezing Last Admin: 05/16/22 04:23 Dose: 3 ml Documented By: HALLIE Azithromycin (Azithromycin 500 Mg Tablet) 500 mg PO Q24H [facility] Last Admin: 05/16/22 00:22 Dose: 500 mg Documented By: LAXMI Benzonatate (Benzonatate 100 Mg Capsule) 100 mg PO TID PRN PRN Reason: Cough Last Admin: 05/16/22 04:01 Dose: 100 mg Documented By: LAXMI Buspirone HCl (Buspirone Hcl 5 Mg Tablet) 7.5 mg PO BID [facility] Last Admin: 05/16/22 08:25 Dose: 7.5 mg Documented By: ANA LAURA Docusate Sodium (Docusate Sodium 100 Mg Capsule) 100 mg PO DAILY PRN PRN Reason: Constipation Last Admin: 05/14/22 22:48 Dose: 100 mg Documented By: ANGIE Enoxaparin Sodium (Enoxaparin Sodium 40 Mg/0.4 Ml Syringe) 40 mg SUBCUT Q24H [facility] Last Admin: 05/16/22 00:21 Dose: 40 mg Documented By: LAXMI Fluticasone/Vilanterol (Fluticasone/Vilanterol 200/25 Blst.W.Dev) 1 puff INHALE RDAILY [facility] Last Admin: 05/16/22 11:23 Dose: Not Given Documented By: CHASE Non-Admin Reason: Patient Refused Folic Acid (Folic Acid 1 Mg Tablet) 1 mg PO DAILY [facility] Last Admin: 05/16/22 08:26 Dose: 1 mg Documented By: ANA LAURA Gabapentin (Gabapentin 100 Mg Capsule) 100 mg PO BID [facility] Last Admin: 05/16/22 08:26 Dose: 100 mg Documented By: ANA LAURA Guaifenesin (Guaifenesin La 600 Mg Tab.Er.12h) 600 mg PO BID [facility] Last Admin: 05/16/22 08:25 Dose: 600 mg Documented By: ANA LAURA Hydroxyzine HCl (Hydroxyzine Hcl 10 Mg Tablet) 10 mg PO DAILY PRN PRN Reason: Anxiety Last Admin: 05/14/22 22:49 Dose: 10 mg Documented By: ANGIE Ceftriaxone Sodium 1 gm/ (Sodium Chloride) 100 mls @ 200 mls/hr IV Q24H [facility] Last Infusion: 05/16/22 08:24 Dose: 0 mls/hr Documented By: ANA LAURA Megestrol Acetate (Megestrol Acetate 400 Mg/10 Ml Oral.Susp) 200 mg PO BID [facility] Last Admin: 05/16/22 08:24 Dose: 200 mg Documented By: ANA LAURA Melatonin (Melatonin 3 Mg Tablet) 6 mg PO BEDTIME PRN PRN Reason: Insomnia Last Admin: 05/14/22 22:47 Dose: 6 mg Documented By: ANGIE Olanzapine (Olanzapine 10 Mg Tablet) 10 mg PO BEDTIME [facility] Last Admin: 05/15/22 21:15 Dose: 10 mg Documented By: LAXMI Pharmacy Consult (Consult Rx Perform Med Rec) 1 each MISCELLANE ONCE PRN PRN Reason: Consult order Senna (Sennosides 8.6 Mg Tablet) 17.2 mg PO BEDTIME PRN PRN Reason: Constipation Last Admin: 05/14/22 22:50 Dose: 17.2 mg Documented By: ANGIE Sodium Chloride (0.9 % Sodium Chloride Flush 3 Ml Syringe) 3 ml IVFLUSH QSHIFT [facility] Last Admin: 05/16/22 08:24 Dose: 3 ml Documented By: ANA LAURA Tamsulosin HCl (Tamsulosin Hcl 0.4 Mg Capsule) 0.4 mg PO DAILY [facility] Last Admin: 05/16/22 08:24 Dose: 0.4 mg Documented By: ANA LAURA Trazodone HCl (Trazodone Hcl 100 Mg Tablet) 100 mg PO BEDTIME PRN PRN Reason: Insomnia Last Admin: 05/14/22 22:49 Dose: 100 mg Documented By: ANGIE Labs CBC & Chem 7: 05/13/22 21:10 05/13/22 21:10 Microbiology Microbiology Results: Microbiology 05/13/22 21:40 Blood Culture - Preliminary Blood - Venous No growth after 48 hours. 05/13/22 21:20 Blood Culture - Final Blood - Venous Assessment and Plan (1) Pneumonia: Status: Acute Plan 66-year-old male with a past medical history of COPD, chronic respiratory failure on 5 L of supplemental oxygen, history of pneumothorax, schizophrenia, tobacco dependence presented to the hospital today with a chief complaint of constipation/shortness of breath/cough or sputum production.? Noted to have pneumonia/constipation with fecal impaction.? Admitted for further management.? Pneumonia: afebrile, oxygen requirement improvingstill on high amount of O2 Continue iv ceftriaxone and azithromycin.? blood cultures no growth Patient noted to have severe leukocytosis-likely in setting of chronic prednisone plus pneumonia plus dehydration.? Will continue to monitor.? He has been refusing lab draws Sinus tachycardia, likely due to pseudo ephedrine and DuoNeb will DC pseudoephedrine and follow clinical course COPD/chronic respiratory failure:? requirement improved continue as needed DuoNebs p.r.n..? Tried to obtain D-dimer/CT scan-patient refusing labs and CT scan. Constipation:?Status post manual disimpaction in the ER for fecal impaction, last bowel movement 05/15 Leukocytosis--some element of chronicity but much high, patient refusing labs will recheck CBC, likely reactive, since pneumonia seems to be improving with stable oxygenation no fevers, CT abdomen showed no acute findings except for moderate rectosigmoid stool. Schizophrenia-- Continue home meds, no behavioral issues this morning BPH--Flomax DVT prophylaxis:? Lovenox. Code status: Full code need for inaptient: treatement for Pneumonia with IV Abx and monitoring of respiratory status in setting of severe chronic respiraoty failure and further workup for leukocytosis Quality Stroke Does the patient have a stroke diagnosis?: No VTE Prior VTE?: No VTE Risk Level:: Medical - moderate - high VTE Device Contraindication: Treatment Not Indicated VTE Drug Contraindication: N/A - Med Ordered
[2022-05-16 13:00] LABS: Hematocrit 35.1 % (42.0-52.0); Hemoglobin 12.2 g/dl (14.0-18.0); Mean Corpuscular HGB Conc 34.8 g/dl (31.0-36.0); Mean Corpuscular Volume 89.1 fL (80.0-98.0); Platelet Count 316 X10*3/uL (160-400); Red Blood Count 3.94 X10*6/uL (4.60-5.80); Red Cell Distribution Width 13.5 % (11.0-16.0); White Blood Count 24.9 X10*3/uL (4.8-10.8)
--- NOTE | 2022-05-16 13:29 | MHC.CM.PN ---
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
--- NOTE | 2022-05-16 14:57 | MHC.CM.PN ---
[facility] accepted pt
--- NOTE | 2022-05-16 15:03 | MHC.SLORD ---
Speech Language Pathology Order Status: Attempted bedside dysphagia evaluation this afternoon, pt refusing to participate. Notified MD, RN, RD. Pt currently on [facility] altered diet (NDD2).
[2022-05-16] MEDS: OLANZapine 10 MG TABLET PO (20:12)
[2022-05-16] MEDS: traZODone HCL 100 MG TABLET PO (22:46)
[2022-05-16] MEDS: hydrOXYzine HCL 10 MG TABLET PO (22:46)
[2022-05-17] VITALS (9 sets, daily range): BP systolic 129–144; BP diastolic 52–71; PULSE 76–109; RESP 18–30; TEMP 36.3–36.9; O2SAT 96–99
--- NOTE | 2022-05-17 | ECG_ITS ---
Test Reason : tachy, hypoxia Blood Pressure : / mmHG Vent. Rate : 130 BPM Atrial Rate : 130 BPM P-R Int : 140 ms QRS Dur : 080 ms QT Int : 290 ms P-R-T Axes : 087 068 082 degrees QTc Int : 426 ms Sinus tachycardia with Premature supraventricular complexes Abnormal ECG When compared with ECG of 28-APR-2022 14:32, Premature supraventricular complexes are now Present Referred By: Caroline Dietrich Electronically Signed By:JANIS STUART
[2022-05-17 00:18] LABS: ABG Base Excess -1.4 mmol/L; ABG HCO3 22 mmol/L (22-26); ABG pCO2 35 mmHg (32-45); ABG pH 7.41 (7.35-7.45); ABG pO2 86 mmHg (83-108)
[2022-05-17 00:21] LABS: ABG Refer to POC result
[2022-05-17] MEDS: Morphine Sulfate 4 MG/ML CARTRIDGE IVPUSH (00:37)
[2022-05-17] MEDS: Megestrol Acetate 400 MG/10 ML ORAL.SUSP 200 MG PO ×2 (09:23→21:11)
[2022-05-17] MEDS: busPIRone HCl 5 MG TABLET 7.5 MG PO ×3 (09:24→21:15)
[2022-05-17] MEDS: Folic Acid 1 MG TABLET PO (09:24)
[2022-05-17] MEDS: Tamsulosin HCL 0.4 MG CAPSULE PO (09:24)
[2022-05-17] MEDS: guaiFENesin LA 600 MG TAB.ER.12H PO ×2 (09:24→21:11)
[2022-05-17] MEDS: 0.9 % Sodium Chloride Flush 3 ML SYRINGE IVFLUSH ×3 (09:26→21:13)
[2022-05-17] MEDS: Gabapentin 100 MG CAPSULE PO ×2 (09:33→21:11)
--- NOTE | 2022-05-17 09:52 | MHC.SLORD ---
Speech Language Pathology Order Status: CASH MANAGEMENT ASSOCIATE attempted to see pt for bedside dysphagia evaluation, pt refusing to participate. Unable to evaluate. Notified RN via [place] Message.
[2022-05-17] MEDS: Morphine Sulfate 2 MG/ML CARTRIDGE IVPUSH ×3 (11:36→21:31)
[2022-05-17] MEDS: methylPREDNISolone Sod Succ 125 MG/2 ML VIAL 60 MG IVPUSH ×2 (11:37→18:38)
[2022-05-17 12:34] LABS: Anion Gap 16 (12-20); Blood Urea Nitrogen 10 mg/dL (9-16); Calcium 7.9 mg/dL (8.4-10.2); Carbon Dioxide 23 mmol/L (22-29); Chloride 100 mmol/L (96-108); Creatinine Clr Calc Pharmacy 138.6; Estimated Glomerular Filt Rate > 60; Glucose Random 134 mg/dL (60-115); Potassium 3.2 mmol/L (3.3-5.1); Sodium 136 mmol/L (135-145)
[2022-05-17 12:53] LABS: Appearance Urine Clear; Color Urine Dark Yellow; Glucose Urine UA Negative (Negative); Leukocyte Esterase Urine Trace (Negative); Nitrite Urine Negative (Negative); PH 6.5 (5.0-9.0); UMIC TRIGGER UACC YES; Urine Blood Negative (Negative); Urine Ketones Trace mg/dL (Negative); Urine Protein 30 (1+) mg/dL (Neg-Trace)
[2022-05-17 12:55] LABS: Troponin-I High Sensitivity 4.4 ng/L (<3.5-35.0)
[2022-05-17 12:57] LABS: Bacteria Urine None Seen (None Seen); Hyaline Casts Urine 0-2 /LPF (0-2); RBC Urine 0-2 /HPF (0-2); WBC Urine 0-5 /HPF (0-5)
--- NOTE | 2022-05-17 14:27 | MHC.SL.SWA ---
Speech Pathologist Impression:Oropharyngeal phase dysphagia Risk of Aspiration Due to: History of Pneumonia Poor PO Intake Dysphasia Diet Status: Downgrade solids Liquid Consistency and Strategies for Safe Swallow: Liquid Intake Recommendation: Thin Liquid Intake Strategies: Small Sips Solid Food Consistency: Dietary Recommendations: Pureed (NDD1) Additional Modifications to Solid Foods: Pt with decaying teeth, does not have dentures. Pt reporting pain in his teeth and difficulty chewing. When seen at bedside, pt exhibited difficulty chewing ground food and soft cooked vegetables. QUILL FIXER suggested changing to pureed diet and discussed with pt. Pt again reported it is painful to chew and was agreeable to this change. Recommend downgrade to PUREED (NDD1) diet with THIN liquids, pills WHOLE in PUREE or with LIQUID per pt's tolerance. Pt is able to feed himself. Recommend intermittent supervision to monitor tolerance and ensure aspiration precautions. Diet order updated by QUILL FIXER. Sent update to , RN, RD via [employer] Mobile Message. Will continue to follow. Oral Medication Intake: Whole with Liquid Please contact the pharmacy regarding appropriate crushable or liquid drug formulations that are available whenever modified delivery is recommended. Compensatory Strategies and Precautions to be Taken for Safe Swallow: Sitting Upright (90 deg) Double Swallow Small Bites and Sips Alternate Liquids/Solids Rate of Ingestion Change Supervision While Eating and Drinking for Safe Swallow: Intermittent Supervision Swallowing Recommended Treatments: Compens. Strategy Educat. Recommendation for Speech: Inpatient Speech Therapy Property Management Bookkeeper Clinican/Clinical Fellow: No Supervisory Statement: I have reviewed and agree with the student/clinical fellow's documentation: N/A Speech Language Pathologist: Vania Pickett M.A., CCC-QUILL FIXER
--- NOTE | 2022-05-17 14:28 | HO.PM.IMPN ---
Subjective Subjective Date of Service: 05/17/22 Interval History: being followed for pneumonia complaining of not feeling good, complaining of shortness of breath persistent dry, and chest discomfort with coughing no fevers, no chills noted to have difficulty chewing food secondary to lack of dentures Review of Systems TIE FASTENER no headache no dizziness no urinary frequency, no urgency Review of Systems: Yes all other systems are reviewed and are negative Physical Exam Vital Signs: Vital Signs: Last Vital Signs Temp 97.8 F 05/17/22 11:04 Pulse 109 H 05/17/22 11:04 Resp 20 05/17/22 11:04 BP 137/68 05/17/22 11:04 Pulse Ox 98 05/17/22 11:04 O2 Del Method 05/17/22 11:04 O2 Flow Rate 5 05/17/22 11:04 Oxygen Flow Rate 5 05/13/22 18:31 BMI result Body Mass Index 23.6 Const: Other: General? awake alert x3 , no acute distress Neck? no JVD. CVS? tachycardia Respiratory lungs clear to auscultation, diminished breath sound, mild tachypnea, no wheeze, no rhonchi. Gastrointestinal abdomen soft, nontender, bowel sounds audible, Extremities no? edema. Neuro nonfocal Skin no rash Objective Data Active Medications Acamprosate (Acamprosate Calcium 333 Mg Tablet.) 333 mg PO TID [facility] Last Admin: 05/17/22 09:27 Dose: Not Given Documented By: ANA LAURA Non-Admin Reason: Patient Refused Acetaminophen (Acetaminophen 325 Mg Tablet) 650 mg PO Q6H PRN PRN Reason: Pain, Mild (Pain Scale 1-3) Last Admin: 05/16/22 20:11 Dose: 650 mg Documented By: NARINDER Albuterol Sulfate (Albuterol Sulfate 90 Mcg 8 Gm Inhaler) 1 puff INHALE Q4H PRN PRN Reason: Wheezing Last Admin: 05/16/22 05:48 Dose: 1 puff Documented By: LAXMI Albuterol/Ipratropium (Albuterol/Iprat 2.5/0.5mg 3 Ml Ampul.Neb) 3 ml INHALE RQ4H WHILE AWAKE PRN PRN Reason: Shortness of Breath/Wheezing Last Admin: 05/16/22 20:03 Dose: 3 ml Documented By: HALLIE Azithromycin (Azithromycin 500 Mg Tablet) 500 mg PO Q24H [facility] Last Admin: 05/16/22 22:46 Dose: 500 mg Documented By: NARINDER Benzonatate (Benzonatate 100 Mg Capsule) 100 mg PO TID PRN PRN Reason: Cough Last Admin: 05/16/22 04:01 Dose: 100 mg Documented By: LAXMI Buspirone HCl (Buspirone Hcl 5 Mg Tablet) 7.5 mg PO BID [facility] Last Admin: 05/17/22 09:24 Dose: 7.5 mg Documented By: ANA LAURA Docusate Sodium (Docusate Sodium 100 Mg Capsule) 100 mg PO DAILY PRN PRN Reason: Constipation Last Admin: 05/14/22 22:48 Dose: 100 mg Documented By: ANGIE Enoxaparin Sodium (Enoxaparin Sodium 40 Mg/0.4 Ml Syringe) 40 mg SUBCUT Q24H [facility] Last Admin: 05/16/22 22:46 Dose: 40 mg Documented By: NARINDER Fluticasone/Vilanterol (Fluticasone/Vilanterol 200/25 Blst.W.Dev) 1 puff INHALE RDAILY [facility] Last Admin: 05/17/22 07:44 Dose: Not Given Documented By: RODRIGO Non-Admin Reason: Patient Asleep Folic Acid (Folic Acid 1 Mg Tablet) 1 mg PO DAILY [facility] Last Admin: 05/17/22 09:24 Dose: 1 mg Documented By: ANA LAURA Gabapentin (Gabapentin 100 Mg Capsule) 100 mg PO BID [facility] Last Admin: 05/17/22 09:33 Dose: 100 mg Documented By: ANA LAURA Guaifenesin (Guaifenesin La 600 Mg Tab.Er.12h) 600 mg PO BID [facility] Last Admin: 05/17/22 09:24 Dose: 600 mg Documented By: ANA LAURA Hydroxyzine HCl (Hydroxyzine Hcl 10 Mg Tablet) 10 mg PO DAILY PRN PRN Reason: Anxiety Last Admin: 05/16/22 22:46 Dose: 10 mg Documented By: NARINDER Ceftriaxone Sodium 1 gm/ (Sodium Chloride) 100 mls @ 200 mls/hr IV Q24H [facility] Last Infusion: 05/17/22 00:39 Dose: 0 mls/hr Documented By: NARINDER Levalbuterol HCl (Levalbuterol Hcl 1.25 Mg/0.5 Ml Vial.Neb) 1.25 mg INHALE Q3H PRN PRN Reason: Shortness of Breath/Wheezing Last Admin: 05/16/22 23:59 Dose: 1.25 mg Documented By: HALLIE Megestrol Acetate (Megestrol Acetate 400 Mg/10 Ml Oral.Susp) 200 mg PO BID [facility] Last Admin: 05/17/22 09:23 Dose: 200 mg Documented By: ANA LAURA Melatonin (Melatonin 3 Mg Tablet) 6 mg PO BEDTIME PRN PRN Reason: Insomnia Last Admin: 05/14/22 22:47 Dose: 6 mg Documented By: ANGIE Methylprednisolone Sodium Succinate (Methylprednisolone Sod Succ 125 Mg/2 Ml Vial) 60 mg IVPUSH Q6H [facility] Last Admin: 05/17/22 11:37 Dose: 60 mg Documented By: ANA LAURA Morphine Sulfate (Morphine Sulfate 2 Mg/Ml Cartridge) 2 mg IVPUSH Q4H PRN; Protocol PRN Reason: Chest Pain Olanzapine (Olanzapine 10 Mg Tablet) 10 mg PO BEDTIME [facility] Last Admin: 05/16/22 20:12 Dose: 10 mg Documented By: NARINDER Pharmacy Consult (Consult Rx Perform Med Rec) 1 each MISCELLANE ONCE PRN PRN Reason: Consult order Senna (Sennosides 8.6 Mg Tablet) 17.2 mg PO BEDTIME PRN PRN Reason: Constipation Last Admin: 05/14/22 22:50 Dose: 17.2 mg Documented By: ANGIE Sodium Chloride (0.9 % Sodium Chloride Flush 3 Ml Syringe) 3 ml IVFLUSH QSHIFT [facility] Last Admin: 05/17/22 09:26 Dose: 3 ml Documented By: ANA LAURA Tamsulosin HCl (Tamsulosin Hcl 0.4 Mg Capsule) 0.4 mg PO DAILY [facility] Last Admin: 05/17/22 09:24 Dose: 0.4 mg Documented By: ANA LAURA Trazodone HCl (Trazodone Hcl 100 Mg Tablet) 100 mg PO BEDTIME PRN PRN Reason: Insomnia Last Admin: 05/16/22 22:46 Dose: 100 mg Documented By: NARINDER Labs CBC & Chem 7: 05/16/22 12:36 05/17/22 11:41 Labs: Laboratory Results - last 24 hr 05/17/22 05/17/22 05/17/22 00:12 11:41 12:29 O2 Saturation 96.0 ABG pH at Pt Temp 7.41 ABG pCO2 at Pt Temp 35 ABG pO2 at Pt Temp 86 ABG HCO3 22 ABG Base Excess (Actual) -1.4 Anion Gap 16 Estim Creat Clear Calc 138.6 Estimated GFR > 60 Random Glucose 134 H Calcium 7.9 L D TSH 0.70 Urine Color Dark Yellow Urine Appearance Clear Urine pH 6.5 Ur Specific [place] 1.020 Urine Protein 30 (1+) H Urine Glucose (UA) Negative Urine Ketones Trace Urine Blood Negative Urine Nitrite Negative Ur Leukocyte Esterase Trace H Urine RBC 0-2 Urine WBC 0-5 Ur Squamous Epith Cells 3-5 Urine Bacteria None Seen Hyaline Casts 0-2 Assessment and Plan (1) Pneumonia: Status: Acute Plan 66-year-old male with a past medical history of COPD, chronic respiratory failure on 5 L of supplemental oxygen, history of pneumothorax, schizophrenia, tobacco dependence presented to the hospital today with a chief complaint of constipation/shortness of breath/cough or sputum production.? Noted to have pneumonia/constipation with fecal impaction.? Admitted for further management.? Pneumonia: afebrile, oxygen requirement improving still on 5L of O2 Continue iv ceftriaxone and azithromycin.? blood cultures no growth Patient noted to have severe leukocytosis-likely in setting of chronic prednisone plus pneumonia plus dehydration. will recommend outpatient hematology follow-up, noted to have a neutrophil predominance? Sinus tachycardia, persistent tachycardia TSH within normal range, pseudo ephedrine discontinued troponin within normal range EKG showed sinus tach with PACs will obtain CTA rule out PE will treat underlying COPD exacerbation and pneumonia, continue tele monitor and close clinical follow-up acute on chronic COPD/chronic respiratory failure: noted to be short of breath today with diminished breath sound/ tachycardia will place on IV steroids and Xopenex updraft continue antibiotics,, obtain CTA rule out PE mild hypokalemia potassium 3.2 will replete and follow labs Constipation:?Status post manual disimpaction in the ER for fecal impaction, last bowel movement 05/15 Leukocytosis--some element of chronicity but much high, repeat CBC showed WBC trending down but since chronic leukocytosis will recommend outpatient hematology follow-up, CT abdomen showed no acute findings except for moderate rectosigmoid stool. Schizophrenia-- Continue home meds, no behavioral issues this morning BPH--Flomax DVT prophylaxis:? Lovenox. Code status: Full code need for inaptient: treatement for tachycardia, hypoxia,Pneumonia with IV Abx and monitoring of respiratory status in setting of severe chronic respiratory failure . Quality Stroke Does the patient have a stroke diagnosis?: No VTE Prior VTE?: No VTE Risk Level:: Medical - moderate - high VTE Device Contraindication: Treatment Not Indicated VTE Drug Contraindication: N/A - Med Ordered
[2022-05-17] MEDS: Docusate Sodium 100 MG CAPSULE PO (16:05)
[2022-05-17] MEDS: Potassium Chloride ER 20 MEQ TAB.ER.PRT PO (16:05)
[2022-05-17] MEDS: Acamprosate Calcium 333 MG TABLET.DR PO ×2 (16:05→21:11)
[2022-05-17] MEDS: iohexoL 350 MG/ML 100 ML INFUS..BTL IV (18:05)
[2022-05-17] MEDS: OLANZapine 10 MG TABLET PO (21:11)
[2022-05-17] MEDS: Enoxaparin Sodium 40 MG/0.4 ML SYRINGE SUBCUT (21:29)
[2022-05-17] MEDS: Azithromycin 500 MG TABLET PO (21:29)
[2022-05-17] MEDS: Benzonatate 100 MG CAPSULE PO (21:31)
[2022-05-17] MEDS: cefTRIAXone sodium 1 GM in 0.9 % Sodium Chloride 100 ML IV (21:33)
[2022-05-18] VITALS (9 sets, daily range): BP systolic 129–143; BP diastolic 56–72; PULSE 93–111; RESP 17–22; TEMP 36.1–37; O2SAT 95–100
[2022-05-18] MEDS: methylPREDNISolone Sod Succ 125 MG/2 ML VIAL 60 MG IVPUSH ×4 (01:01→20:31)
[2022-05-18] MEDS: Fluticasone/Vilanterol 200/25 BLST.W.DEV 1 PUFF INHALE (07:52)
[2022-05-18] MEDS: Megestrol Acetate 400 MG/10 ML ORAL.SUSP 200 MG PO ×2 (08:19→20:29)
[2022-05-18] MEDS: polyethylene glycoL 3350 17 GM POWD.PACK PO (08:20)
[2022-05-18] MEDS: Docusate Sodium 100 MG CAPSULE PO (08:20)
[2022-05-18] MEDS: Folic Acid 1 MG TABLET PO (08:20)
[2022-05-18] MEDS: hydrOXYzine HCL 10 MG TABLET PO (08:20)
[2022-05-18] MEDS: Morphine Sulfate 2 MG/ML CARTRIDGE IVPUSH (08:20)
[2022-05-18] MEDS: Acamprosate Calcium 333 MG TABLET.DR PO ×3 (08:20→20:29)
[2022-05-18] MEDS: guaiFENesin LA 600 MG TAB.ER.12H PO ×2 (08:20→20:31)
[2022-05-18] MEDS: Tamsulosin HCL 0.4 MG CAPSULE PO (08:20)
[2022-05-18] MEDS: Gabapentin 100 MG CAPSULE PO ×2 (08:20→20:31)
[2022-05-18] MEDS: 0.9 % Sodium Chloride Flush 3 ML SYRINGE IVFLUSH ×3 (08:24→23:47)
--- NOTE | 2022-05-18 10:23 | MHC.SLORD ---
Addendum entered and electronically signed by Vania Pickett MA, CCC-AMPLIFIER MECHANIC 05/18/22 11:02: D.S. Original Note: Speech Language Pathology Order Status: AMPLIFIER MECHANIC attempted 2X to see pt for bedside dysphagia treatment this morning. Pt was asleep with breakfast tray untouched. Pt did not awake to verbal stimuli. AMPLIFIER MECHANIC will continue to follow.
--- NOTE | 2022-05-18 12:24 | HO.PM.IMPN ---
Subjective Subjective Date of Service: 05/18/22 Interval History: feeling better this morning less shortness of breath and cough, persistent tachycardia but heart rate improved, less than 110 over night, tolerating pureed diet and clear liquids, no acute overnight events no fevers no chills denies headache, no dizziness, on 4 L of oxygen finger oximetry stable at 95. Review of Systems Review of Systems: Yes all other systems are reviewed and are negative Physical Exam Vital Signs: Vital Signs: Last Vital Signs Temp 97.6 F 05/18/22 11:39 Pulse 109 H 05/18/22 11:39 Resp 20 05/18/22 11:39 BP 129/65 05/18/22 11:39 Pulse Ox 95 05/18/22 11:39 O2 Del Method 05/18/22 11:39 O2 Flow Rate 4 05/18/22 11:39 Oxygen Flow Rate 5 05/13/22 18:31 BMI result Body Mass Index 23.6 Const: Other: General? awake alert x3 , no acute distress oral cavity decayed lower teeth Neck? no JVD. CVS? tachycardia Respiratory lungs clear to auscultation, diminished breath sound, mild tachypnea, Coarse breath sound, no wheeze, no rhonchi. Gastrointestinal abdomen soft, nontender, bowel sounds audible, Extremities no? edema. Neuro nonfocal Skin no rash Objective Data Active Medications Acamprosate (Acamprosate Calcium 333 Mg Tablet.) 333 mg PO TID ON LICENSE OF [facility] Last Admin: 05/18/22 08:20 Dose: 333 mg Documented By: YANELI Acetaminophen (Acetaminophen 325 Mg Tablet) 650 mg PO Q6H PRN PRN Reason: Pain, Mild (Pain Scale 1-3) Last Admin: 05/16/22 20:11 Dose: 650 mg Documented By: NARINDER Albuterol Sulfate (Albuterol Sulfate 90 Mcg 8 Gm Inhaler) 1 puff INHALE Q4H PRN PRN Reason: Wheezing Last Admin: 05/16/22 05:48 Dose: 1 puff Documented By: LAXMI Albuterol/Ipratropium (Albuterol/Iprat 2.5/0.5mg 3 Ml Ampul.Neb) 3 ml INHALE RQ4H WHILE AWAKE PRN PRN Reason: Shortness of Breath/Wheezing Last Admin: 05/16/22 20:03 Dose: 3 ml Documented By: HALLIE Azithromycin (Azithromycin 500 Mg Tablet) 500 mg PO Q24H ON LICENSE OF [facility] Last Admin: 05/17/22 21:29 Dose: 500 mg Documented By: CARLI Benzonatate (Benzonatate 100 Mg Capsule) 100 mg PO TID PRN PRN Reason: Cough Last Admin: 05/17/22 21:31 Dose: 100 mg Documented By: CARLI Buspirone HCl (Buspirone Hcl 5 Mg Tablet) 7.5 mg PO BID ON LICENSE OF [facility] Last Admin: 05/17/22 21:15 Dose: 7.5 mg Documented By: CARLI Docusate Sodium (Docusate Sodium 100 Mg Capsule) 100 mg PO DAILY ON LICENSE OF [facility] Last Admin: 05/18/22 08:20 Dose: 100 mg Documented By: YANELI Enoxaparin Sodium (Enoxaparin Sodium 40 Mg/0.4 Ml Syringe) 40 mg SUBCUT Q24H ON LICENSE OF [facility] Last Admin: 05/17/22 21:29 Dose: 40 mg Documented By: CARLI Fluticasone/Vilanterol (Fluticasone/Vilanterol 200/25 Blst.W.Dev) 1 puff INHALE RDAILY ON [facility] OF [facility] Last Admin: 05/18/22 07:52 Dose: 1 puff Documented By: TAHMINA Folic Acid (Folic Acid 1 Mg Tablet) 1 mg PO DAILY ON LICENSE OF [facility] Last Admin: 05/18/22 08:20 Dose: 1 mg Documented By: YANELI Gabapentin (Gabapentin 100 Mg Capsule) 100 mg PO BID ON LICENSE OF [facility] Last Admin: 05/18/22 08:20 Dose: 100 mg Documented By: YANELI Guaifenesin (Guaifenesin La 600 Mg Tab.Er.12h) 600 mg PO BID ON LICENSE OF [facility] Last Admin: 05/18/22 08:20 Dose: 600 mg Documented By: YANELI Hydroxyzine HCl (Hydroxyzine Hcl 10 Mg Tablet) 10 mg PO DAILY PRN PRN Reason: Anxiety Last Admin: 05/18/22 08:20 Dose: 10 mg Documented By: YANELI Ceftriaxone Sodium 1 gm/ (Sodium Chloride) 100 mls @ 200 mls/hr IV Q24H ON LICENSE OF [facility] Last Infusion: 05/18/22 01:05 Dose: 0 mls/hr Documented By: CARLI Levalbuterol HCl (Levalbuterol Hcl 1.25 Mg/0.5 Ml Vial.Neb) 1.25 mg INHALE Q3H PRN PRN Reason: Shortness of Breath/Wheezing Last Admin: 05/16/22 23:59 Dose: 1.25 mg Documented By: HALLIE Levalbuterol HCl (Levalbuterol Hcl 1.25 Mg/0.5 Ml Vial.Neb) 1.25 mg INHALE RTID ON LICENSE OF [facility] Last Admin: 05/18/22 07:51 Dose: 1.25 mg Documented By: TAHMINA Megestrol Acetate (Megestrol Acetate 400 Mg/10 Ml Oral.Susp) 200 mg PO BID ON [facility] OF [facility] Last Admin: 05/18/22 08:19 Dose: 200 mg Documented By: YANELI Melatonin (Melatonin 3 Mg Tablet) 6 mg PO BEDTIME PRN PRN Reason: Insomnia Last Admin: 05/14/22 22:47 Dose: 6 mg Documented By: ANGIE Methylprednisolone Sodium Succinate (Methylprednisolone Sod Succ 125 Mg/2 Ml Vial) 60 mg IVPUSH Q6H ON LICENSE OF [facility] Last Admin: 05/18/22 06:03 Dose: 60 mg Documented By: LUIS MIGUEL Morphine Sulfate (Morphine Sulfate 2 Mg/Ml Cartridge) 2 mg IVPUSH Q4H PRN; Protocol PRN Reason: Chest Pain Last Admin: 05/18/22 08:20 Dose: 2 mg Documented By: YANELI Olanzapine (Olanzapine 10 Mg Tablet) 10 mg PO BEDTIME ON LICENSE OF [facility] Last Admin: 05/17/22 21:11 Dose: 10 mg Documented By: CARLI Pharmacy Consult (Consult Rx Perform Med Rec) 1 each MISCELLANE ONCE PRN PRN Reason: Consult order Polyethylene Glycol (Polyethylene Glycol 3350 17 Gm Powd.Pack) 17 gm PO DAILY ON LICENSE OF [facility] Last Admin: 05/18/22 08:20 Dose: 17 gm Documented By: YANELI Senna (Sennosides 8.6 Mg Tablet) 17.2 mg PO BEDTIME PRN PRN Reason: Constipation Last Admin: 05/14/22 22:50 Dose: 17.2 mg Documented By: ANGIE Sodium Chloride (0.9 % Sodium Chloride Flush 3 Ml Syringe) 3 ml IVFLUSH QSHIFT ON LICENSE OF [facility] Last Admin: 05/18/22 08:24 Dose: 3 ml Documented By: YANELI Tamsulosin HCl (Tamsulosin Hcl 0.4 Mg Capsule) 0.4 mg PO DAILY ON LICENSE OF [facility] Last Admin: 05/18/22 08:20 Dose: 0.4 mg Documented By: YANELI Trazodone HCl (Trazodone Hcl 100 Mg Tablet) 100 mg PO BEDTIME PRN PRN Reason: Insomnia Last Admin: 05/16/22 22:46 Dose: 100 mg Documented By: NARINDER Labs CBC & Chem 7: 05/16/22 12:36 05/17/22 11:41 Labs: Laboratory Results - last 24 hr 05/17/22 05/17/22 11:41 12:29 Anion Gap 16 Estim Creat Clear Calc 138.6 Estimated GFR > 60 Random Glucose 134 H Calcium 7.9 L D TSH 0.70 Urine Color Dark Yellow Urine Appearance Clear Urine pH 6.5 Ur Specific [place] 1.020 Urine Protein 30 (1+) H Urine Glucose (UA) Negative Urine Ketones Trace Urine Blood Negative Urine Nitrite Negative Ur Leukocyte Esterase Trace H Urine RBC 0-2 Urine WBC 0-5 Ur Squamous Epith Cells 3-5 Urine Bacteria None Seen Hyaline Casts 0-2 Assessment and Plan (1) Pneumonia: Status: Acute Plan 66-year-old male with a past medical history of COPD, chronic respiratory failure on 5 L of supplemental oxygen, history of pneumothorax, schizophrenia, tobacco dependence presented to the hospital today with a chief complaint of constipation/shortness of breath/cough or sputum production.? Noted to have pneumonia/constipation with fecal impaction.? Admitted for further management.? Pneumonia: afebrile, oxygen requirement improving on 4L of O2 Continue iv ceftriaxone and azithromycin.? blood cultures no growth Patient noted to have severe leukocytosis-likely in setting of chronic prednisone plus pneumonia plus dehydration. will recommend outpatient hematology follow-up, noted to have a neutrophil predominance? CT chest showed no PE Sinus tachycardia, tachycardia improved now less than 110, patient denies palpitations,no chest pain, TSH within normal range, pseudo ephedrine discontinued troponin within normal range EKG showed sinus tach with PACs , CTA chest no PE will treat underlying COPD exacerbation and pneumonia, continue tele monitor and close clinical follow-up acute on chronic COPD exac/chronic respiratory failure: less short of breath today ,cont. IV steroids and Xopenex updraft continue antibiotics, mild hypokalemia potassium 3.2 repleted pt. refused labs Constipation:?Status post manual disimpaction in the ER last bowel movement 05/15 Leukocytosis--some element of chronicity but much high, repeat CBC showed WBC trending down but since chronic leukocytosis will recommend outpatient hematology follow-up, CT abdomen showed no acute findings except for moderate rectosigmoid stool. Schizophrenia-- Continue home meds, no behavioral issues this morning BPH--Flomax DVT prophylaxis:? Lovenox. Code status: Full code need for inaptient: treatement for tachycardia, hypoxia,Pneumonia with IV Abx and monitoring of respiratory status in setting of severe chronic respiratory failure . Quality Stroke Does the patient have a stroke diagnosis?: No VTE Prior VTE?: No VTE Risk Level:: Medical - moderate - high VTE Device Contraindication: Treatment Not Indicated VTE Drug Contraindication: N/A - Med Ordered
--- NOTE | 2022-05-18 15:28 | MHC.CM.PN ---
per rounds pt to be dcd tomorrow with randolph peña
[2022-05-18] MEDS: busPIRone HCl 5 MG TABLET 7.5 MG PO (20:30)
[2022-05-18] MEDS: OLANZapine 10 MG TABLET PO (20:31)
[2022-05-18] MEDS: Azithromycin 500 MG TABLET PO (22:53)
[2022-05-18] MEDS: Enoxaparin Sodium 40 MG/0.4 ML SYRINGE SUBCUT (22:54)
[2022-05-18] MEDS: cefTRIAXone sodium 1 GM in 0.9 % Sodium Chloride 100 ML IV (22:57)
[2022-05-19] VITALS (9 sets, daily range): BP systolic 137–158; BP diastolic 56–82; PULSE 89–101; RESP 17–20; TEMP 36.3–36.9; O2SAT 91–100
[2022-05-19] MEDS: traZODone HCL 100 MG TABLET PO (02:45)
[2022-05-19] MEDS: Sennosides 8.6 MG TABLET 17.2 MG PO (02:45)
[2022-05-19] MEDS: Albuterol/Iprat 2.5/0.5MG 3 ML AMPUL.NEB INHALE (04:17)
[2022-05-19] MEDS: methylPREDNISolone Sod Succ 125 MG/2 ML VIAL 60 MG IVPUSH (06:10)
[2022-05-19] MEDS: busPIRone HCl 5 MG TABLET 7.5 MG PO ×2 (08:20→20:13)
[2022-05-19] MEDS: guaiFENesin LA 600 MG TAB.ER.12H PO ×2 (08:20→20:12)
[2022-05-19] MEDS: Acamprosate Calcium 333 MG TABLET.DR PO ×3 (08:20→20:12)
[2022-05-19] MEDS: Tamsulosin HCL 0.4 MG CAPSULE PO (08:21)
[2022-05-19] MEDS: Folic Acid 1 MG TABLET PO (08:21)
[2022-05-19] MEDS: Docusate Sodium 100 MG CAPSULE PO (08:21)
[2022-05-19] MEDS: Gabapentin 100 MG CAPSULE PO ×2 (08:21→20:13)
[2022-05-19] MEDS: Megestrol Acetate 400 MG/10 ML ORAL.SUSP 200 MG PO ×2 (08:21→20:12)
[2022-05-19] MEDS: polyethylene glycoL 3350 17 GM POWD.PACK PO (08:22)
--- NOTE | 2022-05-19 10:50 | MHC.SLORD ---
Speech Language Pathology Order Status: Attempted to see pt for dysphagia treatment. Pt was sleeping and woke to verbal stimuli. Pt refused to participate. No PO trials given this date. Pt was previously evaluated by SAND CUTTER OPERATOR, exhibited pain and difficulty chewing ground consistency, was subsequently downgraded to pureed food. Dr. Dietrich noted pt tolerating pureed diet. Per CM note, plan for d/c today.
--- NOTE | 2022-05-19 11:45 | PC.NURSE ---
Patient resting in NAD, c./o of feeling short of breath, breathing is unlabored and lungs are clear. Patient encouraged to get OOB but declined at this time. Liliana ltry again later. Patient on 4 liters NC which is baseline 94%. Plan is for d/c either today or tomorrow.
[2022-05-19] MEDS: 0.9 % Sodium Chloride Flush 3 ML SYRINGE IVFLUSH ×2 (14:48→23:15)
[2022-05-19] MEDS: Mineral OiL enema 133 ML ENEMA PR (14:48)
--- NOTE | 2022-05-19 16:12 | P.PNIM_ITS ---
Subjective Subjective Date of Service: 05/19/22 Interval History: complaining of shortness of breath keeps stating doctor I cant breath , taking shallow rapid breaths, oxygenation improved currently on 2 L of oxygen finger oximetry 91%, no acute events overnight tachycardia has resolved tolerating pureed diet, no nausea no vomiting complaining of constipation. Review of Systems Review of Systems: Yes all other systems are reviewed and are negative Physical Exam Vital Signs: Vital Signs: Last Vital Signs Temp 97.4 F 05/19/22 15:46 Pulse 99 05/19/22 15:46 Resp 17 05/19/22 15:46 BP 158/73 H 05/19/22 15:46 Pulse Ox 91 L 05/19/22 15:46 O2 Del Method 05/19/22 15:46 O2 Flow Rate 2 05/19/22 15:46 Oxygen Flow Rate 5 05/13/22 18:31 BMI result Body Mass Index 23.6 Const: Other: General? awake alert x3 , no acute distress oral cavity decayed lower teeth Neck? no JVD. CVS? tachycardia Respiratory lungs clear to auscultation, no wheeze, no rhonchi. Gastrointestinal abdomen soft, nontender, bowel sounds audible, Extremities no? edema. Neuro nonfocal Skin no rash Objective Data Active Medications Acamprosate (Acamprosate Calcium 333 Mg Tablet.) 333 mg PO TID [facility] Last Admin: 05/19/22 14:46 Dose: 333 mg Documented By: NATALIE Acetaminophen (Acetaminophen 325 Mg Tablet) 650 mg PO Q6H PRN PRN Reason: Pain, Mild (Pain Scale 1-3) Last Admin: 05/16/22 20:11 Dose: 650 mg Documented By: NARINDER Albuterol Sulfate (Albuterol Sulfate 90 Mcg 8 Gm Inhaler) 1 puff INHALE Q4H PRN PRN Reason: Wheezing Last Admin: 05/16/22 05:48 Dose: 1 puff Documented By: LAXMI Albuterol/Ipratropium (Albuterol/Iprat 2.5/0.5mg 3 Ml Ampul.Neb) 3 ml INHALE RQ4H WHILE AWAKE PRN PRN Reason: Shortness of Breath/Wheezing Last Admin: 05/19/22 04:17 Dose: 3 ml Documented By: DARELL Azithromycin (Azithromycin 500 Mg Tablet) 500 mg PO Q24H [facility] Last Admin: 05/18/22 22:53 Dose: 500 mg Documented By: MARGARET Benzonatate (Benzonatate 100 Mg Capsule) 100 mg PO TID PRN PRN Reason: Cough Last Admin: 05/17/22 21:31 Dose: 100 mg Documented By: CARLI Buspirone HCl (Buspirone Hcl 5 Mg Tablet) 7.5 mg PO BID [facility] Last Admin: 05/19/22 08:20 Dose: 7.5 mg Documented By: NATALIE Cefuroxime Axetil (Cefuroxime Axetil 500 Mg Tablet) 500 mg PO Q12H [facility] Docusate Sodium (Docusate Sodium 100 Mg Capsule) 100 mg PO DAILY [facility] Last Admin: 05/19/22 08:21 Dose: 100 mg Documented By: NATALIE Enoxaparin Sodium (Enoxaparin Sodium 40 Mg/0.4 Ml Syringe) 40 mg SUBCUT Q24H [facility] Last Admin: 05/18/22 22:54 Dose: 40 mg Documented By: MARGARET Fluticasone/Vilanterol (Fluticasone/Vilanterol 200/25 Blst.W.Dev) 1 puff INHALE RDAILY [facility] Last Admin: 05/19/22 08:14 Dose: Not Given Documented By: ERIC Non-Admin Reason: Patient Refused Folic Acid (Folic Acid 1 Mg Tablet) 1 mg PO DAILY [facility] Last Admin: 05/19/22 08:21 Dose: 1 mg Documented By: NATALIE Gabapentin (Gabapentin 100 Mg Capsule) 100 mg PO BID [facility] Last Admin: 05/19/22 08:21 Dose: 100 mg Documented By: NATALIE Guaifenesin (Guaifenesin La 600 Mg Tab.Er.12h) 600 mg PO BID [facility] Last Admin: 05/19/22 08:20 Dose: 600 mg Documented By: NATALIE Hydroxyzine HCl (Hydroxyzine Hcl 10 Mg Tablet) 10 mg PO DAILY PRN PRN Reason: Anxiety Last Admin: 05/18/22 08:20 Dose: 10 mg Documented By: YANELI Levalbuterol HCl (Levalbuterol Hcl 1.25 Mg/0.5 Ml Vial.Neb) 1.25 mg INHALE Q3H PRN PRN Reason: Shortness of Breath/Wheezing Last Admin: 05/18/22 15:07 Dose: 1.25 mg Documented By: RODRIGO Levalbuterol HCl (Levalbuterol Hcl 1.25 Mg/0.5 Ml Vial.Neb) 1.25 mg INHALE RTID [facility] Last Admin: 05/19/22 14:18 Dose: 1.25 mg Documented By: ERIC Megestrol Acetate (Megestrol Acetate 400 Mg/10 Ml Oral.Susp) 200 mg PO BID [facility] Last Admin: 05/19/22 08:21 Dose: 200 mg Documented By: NATALIE Melatonin (Melatonin 3 Mg Tablet) 6 mg PO BEDTIME PRN PRN Reason: Insomnia Last Admin: 05/14/22 22:47 Dose: 6 mg Documented By: ANGIE Morphine Sulfate (Morphine Sulfate 2 Mg/Ml Cartridge) 2 mg IVPUSH Q4H PRN; Protocol PRN Reason: Chest Pain Last Admin: 05/18/22 08:20 Dose: 2 mg Documented By: YANELI Olanzapine (Olanzapine 10 Mg Tablet) 10 mg PO BEDTIME [facility] Last Admin: 05/18/22 20:31 Dose: 10 mg Documented By: MARGARET Pharmacy Consult (Consult Rx Perform Med Rec) 1 each MISCELLANE ONCE PRN PRN Reason: Consult order Polyethylene Glycol (Polyethylene Glycol 3350 17 Gm Powd.Pack) 17 gm PO DAILY [facility] Last Admin: 05/19/22 08:22 Dose: 17 gm Documented By: NATALIE Prednisone (Prednisone 20 Mg Tablet) 40 mg PO DAILY [facility] Senna (Sennosides 8.6 Mg Tablet) 17.2 mg PO BEDTIME PRN PRN Reason: Constipation Last Admin: 05/19/22 02:45 Dose: 17.2 mg Documented By: WESTLEY Sodium Chloride (0.9 % Sodium Chloride Flush 3 Ml Syringe) 3 ml IVFLUSH QSHIFT [facility] Last Admin: 05/19/22 14:48 Dose: 3 ml Documented By: NATALIE Tamsulosin HCl (Tamsulosin Hcl 0.4 Mg Capsule) 0.4 mg PO DAILY [facility] Last Admin: 05/19/22 08:21 Dose: 0.4 mg Documented By: NATALIE Trazodone HCl (Trazodone Hcl 100 Mg Tablet) 100 mg PO BEDTIME PRN PRN Reason: Insomnia Last Admin: 05/19/22 02:45 Dose: 100 mg Documented By: WESTLEY Labs CBC & Chem 7: 05/16/22 12:36 05/17/22 11:41 Microbiology Microbiology Results: Microbiology 05/13/22 21:40 Blood Culture - Final Blood - Venous No growth after 5 days. Assessment and Plan (1) Pneumonia: Status: Acute Plan 66-year-old male with a past medical history of COPD, chronic respiratory failure on 5 L of supplemental oxygen, history of pneumothorax, schizophrenia, tobacco dependence presented to the hospital today with a chief complaint of constipation/shortness of breath/cough or sputum production.? Noted to have pne umonia/constipation with fecal impaction.? Admitted for further management.? Pneumonia: afebrile, oxygen requirement improving on 2L of O2 on iv ceftriaxone and azithromycin.? Will transition to by mouth Ceftin twice daily for 1 more day to finish a total 7 day course of treatment, blood cultures no growth Patient noted to have severe leukocytosis-likely in setting of chronic prednisone plus pneumonia plus dehydration. will recommend outpatient hematology follow-up, noted to have a neutrophil predominance? CT chest showed no PE, continue cough medication Sinus tachycardia, resolved was likely due to COPD exacerbation/hypoxia TSH within normal range, pseudo ephedrine discontinued troponin within normal range EKG showed sinus tach with PACs , CTA chest no PE acute on chronic COPD exac/chronic respiratory failure: less short of breath, normal lung examination will DC IV steroids transition to by mouth prednisone, continue Xopenex updraft , and Breo mild hypokalemia potassium 3.2 repleted pt. refused labs Constipation:?Status post manual disimpaction in the ER last bowel movement 05/15, continue Colace and MiraLax will give mineral oil enema Leukocytosis--some element of chronicity but much high, repeat CBC showed WBC trending down but since chronic leukocytosis will recommend outpatient hematology follow-up, CT abdomen showed no acute findings except for moderate rectosigmoid stool. Schizophrenia-- Continue home meds, no behavioral issues this morning BPH--Flomax DVT prophylaxis:? Lovenox. Code status: Full code need for inaptient: patient continued to complain of shortness of breath and feels not ready for discharge will evaluate for pulmonary rehab case discussed with outpatient case managermotel manager Stroke Does the patient have a stroke diagnosis?: No VTE Prior VTE?: No VTE Risk Level:: Medical - moderate - high VTE Device Contraindication: Treatment Not Indicated VTE Drug Contraindication: N/A - Med Ordered
--- NOTE | 2022-05-19 17:33 | PC.NURSE ---
Addendum entered by Deidra Murphy RN 05/19/22 17:33: patient denies abdominal pain, nausea, vomiting. Up and OOb to chair and commode. Original Note: Patient given mineral oil enema with no effect.
[2022-05-19] MEDS: Benzonatate 100 MG CAPSULE PO (17:36)
[2022-05-19] MEDS: OLANZapine 10 MG TABLET PO (20:12)
[2022-05-19] MEDS: Enoxaparin Sodium 40 MG/0.4 ML SYRINGE SUBCUT (23:08)
[2022-05-19] MEDS: Azithromycin 500 MG TABLET PO (23:08)
[2022-05-20] VITALS (10 sets, daily range): BP systolic 144–159; BP diastolic 68–86; PULSE 94–120; RESP 16–25; TEMP 36.1–37.2; O2SAT 92–99
[2022-05-20] MEDS: Morphine Sulfate 2 MG/ML CARTRIDGE IVPUSH ×3 (01:13→20:10)
[2022-05-20] MEDS: Benzonatate 100 MG CAPSULE PO (01:13)
[2022-05-20] MEDS: Gabapentin 100 MG CAPSULE PO ×2 (08:35→20:10)
[2022-05-20] MEDS: Tamsulosin HCL 0.4 MG CAPSULE PO (08:35)
[2022-05-20] MEDS: guaiFENesin LA 600 MG TAB.ER.12H PO (08:35)
[2022-05-20] MEDS: polyethylene glycoL 3350 17 GM POWD.PACK PO (08:35)
[2022-05-20] MEDS: busPIRone HCl 5 MG TABLET 7.5 MG PO ×3 (08:35→20:09)
[2022-05-20] MEDS: predniSONE 20 MG TABLET 40 MG PO (08:35)
[2022-05-20] MEDS: Acamprosate Calcium 333 MG TABLET.DR PO ×3 (08:35→20:10)
[2022-05-20] MEDS: Folic Acid 1 MG TABLET PO (08:36)
[2022-05-20] MEDS: Megestrol Acetate 400 MG/10 ML ORAL.SUSP 200 MG PO (08:36)
[2022-05-20] MEDS: Docusate Sodium 100 MG CAPSULE PO (08:36)
[2022-05-20] MEDS: 0.9 % Sodium Chloride Flush 3 ML SYRINGE IVFLUSH ×3 (08:39→20:11)
[2022-05-20] MEDS: Fluticasone/Vilanterol 200/25 BLST.W.DEV 1 PUFF INHALE (08:49)
--- NOTE | 2022-05-20 10:41 | MHC.SLORD ---
Speech Language Pathology Order Status: Pt on a pureed diet d/t difficulty chewing and pain when chewing ground consistency. MD notes pt is tolerating pureed diet. RN reported pt tolerated pills whole, no other reported difficulties. Continue to recommend PUREED (NDD1) solids with THIN liquids, consult w/ Dentist. Further ST intervention no longer warranted. Please re-refer if CERTIFED REFRIGERATION OPERATOR can be of further assistance.
[2022-05-20] MEDS: guaiFENesin DM 200/20/10 ML 10 ML SYRUP PO ×2 (13:29→20:08)
--- NOTE | 2022-05-20 14:14 | MHC.CM.PN ---
pt now agreeable to str referrals made
--- NOTE | 2022-05-20 15:50 | HO.PM.IMPN ---
Subjective Subjective Date of Service: 05/20/22 Interval History: complaining of persistent shortness of breath I count bleed noted to have tachycardia with minimal activity, also complaining of constipation although documented to have last bowel movement on 922, requesting for nicotine patch has been smoking more than 1 pack per day quit smoking just before coming to the hospital, denies worsening cough no fevers no chills tele monitor showing heart rate in 120s sinus with frequent PACs. 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 awake alert x3 , no acute distress oral cavity decayed lower teeth Neck? no JVD. CVS? tachycardia Respiratory lungs clear to auscultation, diminished, no wheeze, no rhonchi. Gastrointestinal abdomen soft, nontender, bowel sounds audible, Extremities no? edema. Neuro nonfocal Skin no rash Objective Data Active Medications Acamprosate (Acamprosate Calcium 333 Mg Tablet.) 333 mg PO TID [facility] Last Admin: 05/20/22 13:29 Dose: 333 mg Documented By: PIERO Acetaminophen (Acetaminophen 325 Mg Tablet) 650 mg PO Q6H PRN PRN Reason: Pain, Mild (Pain Scale 1-3) Last Admin: 05/16/22 20:11 Dose: 650 mg Documented By: NARINDER Albuterol Sulfate (Albuterol Sulfate 90 Mcg 8 Gm Inhaler) 1 puff INHALE Q4H PRN PRN Reason: Wheezing Last Admin: 05/16/22 05:48 Dose: 1 puff Documented By: LAXMI Albuterol/Ipratropium (Albuterol/Iprat 2.5/0.5mg 3 Ml Ampul.Neb) 3 ml INHALE RQ4H WHILE AWAKE PRN PRN Reason: Shortness of Breath/Wheezing Last Admin: 05/19/22 04:17 Dose: 3 ml Documented By: DARELL Benzonatate (Benzonatate 100 Mg Capsule) 100 mg PO TID PRN PRN Reason: Cough Last Admin: 05/20/22 01:13 Dose: 100 mg Documented By: JOHNIE Buspirone HCl (Buspirone Hcl 5 Mg Tablet) 7.5 mg PO TID [facility] Last Admin: 05/20/22 13:29 Dose: 7.5 mg Documented By: PIERO Cefuroxime Axetil (Cefuroxime Axetil 500 Mg Tablet) 500 mg PO Q12H [facility] Last Admin: 05/20/22 05:34 Dose: 500 mg Documented By: JOHNIE Docusate Sodium (Docusate Sodium 100 Mg Capsule) 100 mg PO DAILY [facility] Last Admin: 05/20/22 08:36 Dose: 100 mg Documented By: PIERO Enoxaparin Sodium (Enoxaparin Sodium 40 Mg/0.4 Ml Syringe) 40 mg SUBCUT Q24H [facility] Last Admin: 05/19/22 23:08 Dose: 40 mg Documented By: JOHNIE Fluticasone/Vilanterol (Fluticasone/Vilanterol 200/25 Blst.W.Dev) 1 puff INHALE RDAILY [facility] Last Admin: 05/20/22 08:49 Dose: 1 puff Documented By: ERIC Folic Acid (Folic Acid 1 Mg Tablet) 1 mg PO DAILY [facility] Last Admin: 05/20/22 08:36 Dose: 1 mg Documented By: PIERO Gabapentin (Gabapentin 100 Mg Capsule) 100 mg PO BID [facility] Last Admin: 05/20/22 08:35 Dose: 100 mg Documented By: PIERO Guaifenesin/Dextromethorphan (Guaifenesin Dm 200/20/10 Ml 10 Ml Syrup) 10 ml PO TID [facility] Last Admin: 05/20/22 13:29 Dose: 10 ml Documented By: PIERO Hydroxyzine HCl (Hydroxyzine Hcl 10 Mg Tablet) 10 mg PO DAILY PRN PRN Reason: Anxiety Last Admin: 05/18/22 08:20 Dose: 10 mg Documented By: YANELI Hydroxyzine HCl (Hydroxyzine Hcl 25 Mg Tablet) 25 mg PO ONCE ONE Stop: 05/20/22 15:48 Levalbuterol HCl (Levalbuterol Hcl 1.25 Mg/0.5 Ml Vial.Neb) 1.25 mg INHALE Q3H PRN PRN Reason: Shortness of Breath/Wheezing Last Admin: 05/18/22 15:07 Dose: 1.25 mg Documented By: RODRIGO Levalbuterol HCl (Levalbuterol Hcl 1.25 Mg/0.5 Ml Vial.Neb) 1.25 mg INHALE RQ4H WHILE AWAKE [facility] Last Admin: 05/20/22 13:33 Dose: 1.25 mg Documented By: ERIC Melatonin (Melatonin 3 Mg Tablet) 6 mg PO BEDTIME PRN PRN Reason: Insomnia Last Admin: 05/14/22 22:47 Dose: 6 mg Documented By: ANGIE Morphine Sulfate (Morphine Sulfate 2 Mg/Ml Cartridge) 2 mg IVPUSH Q4H PRN; Protocol PRN Reason: Chest Pain Last Admin: 05/20/22 08:38 Dose: 2 mg Documented By: PIERO Nicotine (Nicotine 21 Mg Patch.Td24) 21 mg TRANSDERMA DAILY [facility] Nystatin (Nystatin Oral Susp 500,000 Unit/5 Ml Oral.Susp) 500,000 unit PO QID [facility]; Protocol Olanzapine (Olanzapine 10 Mg Tablet) 10 mg PO BEDTIME [facility] Last Admin: 05/19/22 20:12 Dose: 10 mg Documented By: JOHNIE Pharmacy Consult (Consult Rx Perform Med Rec) 1 each MISCELLANE ONCE PRN PRN Reason: Consult order Polyethylene Glycol (Polyethylene Glycol 3350 17 Gm Powd.Pack) 17 gm PO DAILY [facility] Last Admin: 05/20/22 08:35 Dose: 17 gm Documented By: PIERO Prednisone (Prednisone 20 Mg Tablet) 40 mg PO DAILY [facility] Last Admin: 05/20/22 08:35 Dose: 40 mg Documented By: PIERO Senna (Sennosides 8.6 Mg Tablet) 17.2 mg PO BEDTIME PRN PRN Reason: Constipation Last Admin: 05/19/22 02:45 Dose: 17.2 mg Documented By: WESTLEY Sodium Chloride (0.9 % Sodium Chloride Flush 3 Ml Syringe) 3 ml IVFLUSH QSHIFT [facility] Last Admin: 05/20/22 08:39 Dose: 3 ml Documented By: PIERO Tamsulosin HCl (Tamsulosin Hcl 0.4 Mg Capsule) 0.4 mg PO DAILY [facility] Last Admin: 05/20/22 08:35 Dose: 0.4 mg Documented By: PIERO Trazodone HCl (Trazodone Hcl 100 Mg Tablet) 100 mg PO BEDTIME PRN PRN Reason: Insomnia Last Admin: 05/19/22 02:45 Dose: 100 mg Documented By: WESTLEY Labs CBC & Chem 7: 05/16/22 12:36 05/17/22 11:41 Assessment and Plan (1) Pneumonia: Status: Acute Plan 66-year-old male with a past medical history of COPD, chronic respiratory failure on 5 L of supplemental oxygen, history of pneumothorax, schizophrenia, tobacco dependence presented to the hospital today with a chief complaint of constipation/shortness of breath/cough or sputum production.? Noted to have pneumonia/constipation with fecal impaction.? Admitted for further management.? acute on chronic COPD exac/chronic respiratory failure: noticed to have worsening shortness of breath during conversation and examination patient starts breathing rapidly, heart rate jumps into 120s patient admitted that he is anxious, continue prednisone 40 mg, continue Xopenex updraft q.4 hours, and Breo will uptitrate anxiolytics reassured patient support provided continue close clinical follow-up. Pneumonia: afebrile, oxygen requirement fluctuates currently on 3.5 L on azithromycin and Ceftin by mouth day 8 will DC azithromycin, blood cultures no growth Patient noted to have severe leukocytosis-likely in setting of chronic prednisone plus pneumonia plus dehydration. will recommend outpatient hematology follow-up, noted to have a neutrophil predominance? CT chest showed no PE, continue cough medication Sinus tachycardia, tele monitor showed intermittent sinus tachycardia with frequent PACs heart rate below 100 when patient is resting but during conversation and examination heart rate jumps into 120-130 range likely due to COPD exacerbation/hypoxia, nicotine withdrawal and anxiety TSH within normal range, pseudo ephedrine discontinued troponin within normal range EKG showed sinus tach with PACs , CTA chest no PE oral thrush will add nystatin q.i.d. recommend to rinse mouth after steroid inhalers mild hypokalemia potassium 3.2 repleted pt. refused labs Constipation:?Status post manual disimpaction in the ER last bowel movement 05/19, continue Colace and MiraLax Leukocytosis--some element of chronicity but much high, repeat CBC showed WBC trending down but since chronic leukocytosis will recommend outpatient hematology follow-up, CT abdomen showed no acute findings except for moderate rectosigmoid stool. Schizophrenia-- Continue home meds, noted to be anxious will increase dose of BuSpar to t.i.d. and give 1 dose of hydroxyzine no behavioral issues this morning BPH--Flomax DVT prophylaxis:? Lovenox. Code status: Full code need for inaptient: patient continued to complain of shortness of breath, feel anxious with significant tachycardia and feels not ready for discharge , will arrange for pulmonary rehab once clinically stable to [facility] Stroke Does the patient have a stroke diagnosis?: No VTE Prior VTE?: No VTE Risk Level:: Medical - moderate - high VTE Device Contraindication: Treatment Not Indicated VTE Drug Contraindication: N/A - Med Ordered
[2022-05-20] MEDS: Nicotine 21 MG PATCH.TD24 TRANSDERMA (17:12)
[2022-05-20] MEDS: Nystatin Oral Susp 500,000 UNIT/5 ML ORAL.SUSP 500000 UNIT PO ×2 (17:13→20:09)
[2022-05-20] MEDS: hydrOXYzine HCL 25 MG TABLET PO (17:13)
[2022-05-20] MEDS: OLANZapine 10 MG TABLET PO (20:10)
[2022-05-20] MEDS: Enoxaparin Sodium 40 MG/0.4 ML SYRINGE SUBCUT (22:15)
[2022-05-20] MEDS: Albuterol/Iprat 2.5/0.5MG 3 ML AMPUL.NEB INHALE (23:05)
[2022-05-21] VITALS (10 sets, daily range): BP systolic 138–165; BP diastolic 63–75; PULSE 96–121; RESP 16–24; TEMP 36.5–37.5; O2SAT 92–99
[2022-05-21] MEDS: Morphine Sulfate 2 MG/ML CARTRIDGE IVPUSH ×4 (03:15→21:05)
[2022-05-21] MEDS: busPIRone HCl 5 MG TABLET 7.5 MG PO ×3 (08:44→20:50)
[2022-05-21] MEDS: Gabapentin 100 MG CAPSULE PO ×2 (08:45→20:51)
[2022-05-21] MEDS: Acamprosate Calcium 333 MG TABLET.DR PO ×3 (08:45→20:51)
[2022-05-21] MEDS: 0.9 % Sodium Chloride Flush 3 ML SYRINGE IVFLUSH ×3 (08:45→22:41)
[2022-05-21] MEDS: Nystatin Oral Susp 500,000 UNIT/5 ML ORAL.SUSP 500000 UNIT PO ×4 (08:45→20:52)
[2022-05-21] MEDS: guaiFENesin DM 200/20/10 ML 10 ML SYRUP PO ×3 (08:45→20:52)
[2022-05-21] MEDS: polyethylene glycoL 3350 17 GM POWD.PACK PO (08:45)
[2022-05-21] MEDS: hydrOXYzine HCL 10 MG TABLET PO (08:45)
[2022-05-21] MEDS: Tamsulosin HCL 0.4 MG CAPSULE PO (08:45)
[2022-05-21] MEDS: predniSONE 20 MG TABLET 40 MG PO (08:45)
[2022-05-21] MEDS: Docusate Sodium 100 MG CAPSULE 200 MG PO (08:45)
[2022-05-21] MEDS: Folic Acid 1 MG TABLET PO (08:45)
[2022-05-21] MEDS: Nicotine 21 MG PATCH.TD24 TRANSDERMA (08:46)
[2022-05-21 09:56] LABS: ABG Base Excess 3.3 mmol/L; ABG HCO3 25 mmol/L (22-26); ABG pCO2 32 mmHg (32-45); ABG pO2 79 mmHg (83-108)
[2022-05-21] MEDS: methylPREDNISolone Sod Succ 125 MG/2 ML VIAL IVPUSH (09:58)
[2022-05-21] MEDS: Midazolam HCl/PF 2 MG/2 ML VIAL IVPUSH (10:02)
--- NOTE | 2022-05-21 10:07 | PC.NURSE ---
This RN out as charge assisting with this patient. Patient RR [address] carballo at bedside ABG's drawn titrating O2 as needed. Solumedrol and versed given as ordered by this RN. Sao2 97% on 7lt oxymizer, HR ST 120's RR 19 patient resting with eyes closed easily abusable to verbal stim. CXR in progress.
[2022-05-21 10:49] LABS: ABG Refer to POC result
--- NOTE | 2022-05-21 12:05 | P.PNIM_ITS ---
Subjective Subjective Date of Service: 05/21/22 Interval History: patient complaining of shortness of breath, keep repeating I can not breathe, coughed up thick stauffer sputum, complaining of being scared to , denies fever chills, denies nausea vomiting, denies headache or dizziness, no bowel movements in last couple days tele monitor showing sinus tach up to 140s patient using accessory muscles for breathing appears anxious ,holding hands. Review of Systems Review of Systems: Yes all other systems are reviewed and are negative Physical Exam Vital Signs: Vital Signs: Last Vital Signs Temp 98.9 F 05/21/22 11:37 Pulse 109 H 05/21/22 11:37 Resp 20 05/21/22 11:37 BP 139/69 05/21/22 11:37 Pulse Ox 98 05/21/22 11:37 O2 Del Method 05/21/22 11:37 O2 Flow Rate 7 05/21/22 11:37 Oxygen Flow Rate 5 05/13/22 18:31 BMI result Body Mass Index 23.6 Const: Other: General? awake alert x3 , in respiratory distress oral cavity decayed lower teeth, white patches on the tongue resolved Neck? no JVD. CVS? tachycardia Respiratory lungs bilateral wheeze, diminished breath sounds, no crackles, using abdominal muscles Gastrointestinal abdomen soft, nontender, bowel sounds audible, Extremities no? edema. Neuro nonfocal Skin no rash psych anxious grabbing on to hands to hold Objective Data Active Medications Acamprosate (Acamprosate Calcium 333 Mg Tablet.) 333 mg PO TID [facility] Last Admin: 05/21/22 08:45 Dose: 333 mg Documented By: AZAEL Acetaminophen (Acetaminophen 325 Mg Tablet) 650 mg PO Q6H PRN PRN Reason: Pain, Mild (Pain Scale 1-3) Last Admin: 05/16/22 20:11 Dose: 650 mg Documented By: NARINDER Albuterol Sulfate (Albuterol Sulfate 90 Mcg 8 Gm Inhaler) 1 puff INHALE Q4H PRN PRN Reason: Wheezing Last Admin: 05/16/22 05:48 Dose: 1 puff Documented By: LAXMI Albuterol/Ipratropium (Albuterol/Iprat 2.5/0.5mg 3 Ml Ampul.Neb) 3 ml INHALE RQ4H WHILE AWAKE PRN PRN Reason: Shortness of Breath/Wheezing Last Admin: 05/20/22 23:05 Dose: 3 ml Documented By: LEE Benzonatate (Benzonatate 100 Mg Capsule) 100 mg PO TID PRN PRN Reason: Cough Last Admin: 05/20/22 01:13 Dose: 100 mg Documented By: JOHNIE Buspirone HCl (Buspirone Hcl 5 Mg Tablet) 7.5 mg PO TID [facility] Last Admin: 05/21/22 08:44 Dose: 7.5 mg Documented By: AZAEL Cefuroxime Axetil (Cefuroxime Axetil 500 Mg Tablet) 500 mg PO Q12H [facility] Last Admin: 05/21/22 05:50 Dose: 500 mg Documented By: BIANKA Docusate Sodium (Docusate Sodium 100 Mg Capsule) 200 mg PO DAILY [facility] Last Admin: 05/21/22 08:45 Dose: 200 mg Documented By: AZAEL Enoxaparin Sodium (Enoxaparin Sodium 40 Mg/0.4 Ml Syringe) 40 mg SUBCUT Q24H [facility] Last Admin: 05/20/22 22:15 Dose: 40 mg Documented By: BIANKA Fluticasone/Vilanterol (Fluticasone/Vilanterol 200/25 Blst.W.Dev) 1 puff INHALE RDAILY [facility] Last Admin: 05/21/22 07:38 Dose: Not Given Documented By: RODRIGO Non-Admin Reason: Patient Asleep Folic Acid (Folic Acid 1 Mg Tablet) 1 mg PO DAILY [facility] Last Admin: 05/21/22 08:45 Dose: 1 mg Documented By: AZAEL Gabapentin (Gabapentin 100 Mg Capsule) 100 mg PO BID [facility] Last Admin: 05/21/22 08:45 Dose: 100 mg Documented By: AZAEL Guaifenesin/Dextromethorphan (Guaifenesin Dm 200/20/10 Ml 10 Ml Syrup) 10 ml PO TID [facility] Last Admin: 05/21/22 08:45 Dose: 10 ml Documented By: AZAEL Hydroxyzine HCl (Hydroxyzine Hcl 10 Mg Tablet) 10 mg PO DAILY PRN PRN Reason: Anxiety Last Admin: 05/21/22 08:45 Dose: 10 mg Documented By: AZAEL Levalbuterol HCl (Levalbuterol Hcl 1.25 Mg/0.5 Ml Vial.Neb) 1.25 mg INHALE Q3H PRN PRN Reason: Shortness of Breath/Wheezing Last Admin: 05/18/22 15:07 Dose: 1.25 mg Documented By: RODRIGO Levalbuterol HCl (Levalbuterol Hcl 1.25 Mg/0.5 Ml Vial.Neb) 1.25 mg INHALE RQ4H WHILE AWAKE [facility] Last Admin: 05/21/22 11:09 Dose: Not Given Documented By: RODRIGO Non-Admin Reason: Patient Refused Melatonin (Melatonin 3 Mg Tablet) 6 mg PO BEDTIME PRN PRN Reason: Insomnia Last Admin: 05/14/22 22:47 Dose: 6 mg Documented By: ANGIE Methylprednisolone Sodium Succinate (Methylprednisolone Sod Succ 125 Mg/2 Ml Vial) 60 mg IVPUSH Q6H [facility] Morphine Sulfate (Morphine Sulfate 2 Mg/Ml Cartridge) 2 mg IVPUSH Q4H PRN; Protocol PRN Reason: Chest Pain Last Admin: 05/21/22 08:43 Dose: 2 mg Documented By: AZAEL Nicotine (Nicotine 21 Mg Patch.Td24) 21 mg TRANSDERMA DAILY [facility] Last Admin: 05/21/22 08:46 Dose: 21 mg Documented By: AZAEL Nystatin (Nystatin Oral Susp 500,000 Unit/5 Ml Oral.Susp) 500,000 unit PO QID [facility]; Protocol Last Admin: 05/21/22 08:45 Dose: 500,000 unit Documented By: AZAEL Olanzapine (Olanzapine 10 Mg Tablet) 10 mg PO BEDTIME [facility] Last Admin: 05/20/22 20:10 Dose: 10 mg Documented By: BIANKA Pharmacy Consult (Consult Rx Perform Med Rec) 1 each MISCELLANE ONCE PRN PRN Reason: Consult order Polyethylene Glycol (Polyethylene Glycol 3350 17 Gm Powd.Pack) 17 gm PO DAILY [facility] Last Admin: 05/21/22 08:45 Dose: 17 gm Documented By: AZAEL Senna (Sennosides 8.6 Mg Tablet) 17.2 mg PO BEDTIME PRN PRN Reason: Constipation Last Admin: 05/19/22 02:45 Dose: 17.2 mg Documented By: WESTLEY Sodium Chloride (0.9 % Sodium Chloride Flush 3 Ml Syringe) 3 ml IVFLUSH QSHIFT [facility] Last Admin: 05/21/22 08:45 Dose: 3 ml Documented By: AZAEL Tamsulosin HCl (Tamsulosin Hcl 0.4 Mg Capsule) 0.4 mg PO DAILY [facility] Last Admin: 05/21/22 08:45 Dose: 0.4 mg Documented By: AZAEL Trazodone HCl (Trazodone Hcl 100 Mg Tablet) 100 mg PO BEDTIME PRN PRN Reason: Insomnia Last Admin: 05/19/22 02:45 Dose: 100 mg Documented By: WESTLEY Labs CBC & Chem 7: 05/21/22 14:58 05/17/22 11:41 Labs: Laboratory Results - last 24 hr 05/21/22 09:50 O2 Saturation 96.0 ABG pH at Pt Temp 7.50 H ABG pCO2 at Pt Temp 32 ABG pO2 at Pt Temp 79 L ABG HCO3 25 ABG Base Excess (Actual) 3.3 Assessment and Plan (1) Pneumonia: Status: Acute Plan 66-year-old male with a past medical history of COPD, chronic respiratory failure on 5 L of supplemental oxygen, history of pneumothorax, schizophrenia, tobacco dependence presented to the hospital today with a chief complaint of constipation/shortness of breath/cough or sputum production.? Noted to have pneumonia/constipation with fecal impaction.? Admitted for further management.? acute respiratory distress with acute on chronic respiratory failure due to COPD exacerbation and pneumonia noticed to have worsening shortness of breath this a.m. with use of accessory muscles with sinus tachycardia rib,no atrial flutter ABGs showed pH 7.5, pCO2 32 PO2 of 78 O2 sat 96%, chest x-ray showed left upper lobe worsening infiltrate /emphysema patient finish 7 day course of azithromycin and ceftriaxone will place on IV Zosyn, and IV vancomycin IV Solu Medrol 60 mg q.6 hours, Xopenex updraft q.4 hours and Breo CTA chest 05/17 showed no PE patient feels anxious, will add Ativan 0.5 mg t.i.d.,1 mg Versed given, continue BuSpar t.i.d. support provided continue close clinical follow-up. called sister and informed him about patient's current clinical condition Pneumonia: afebrile, oxygen requirement fluctuates currently on 7 L chest x-ray this a.m. showing worsening left upper lobe infiltrate, placed on Zosyn status post azithromycin and Ceftin x8 days blood culture showed no growth Patient noted to have severe leukocytosis-likely in setting of chronic prednisone plus pneumonia plus dehydration. will recommend outpatient hematology follow-up, noted to have a neutrophil predominance? CT chest showed no PE, continue cough medication case discussed with apple checker will place patient on high-flow 40 L if he tolerates Sinus tachycardia, tele monitor showed intermittent sinus tachycardia with frequent PACs likely due to COPD exacerbation/hypoxia, nicotine withdrawal and anxiety TSH within normal range, pseudo ephedrine discontinued troponin within normal range EKG showed sinus tach with PACs , CTA chest no PE oral thrush on nystatin q.i.d. recommend to rinse mouth after steroid inhalers mild hypokalemia potassium 3.2 repleted pt. refused labs Constipation:?Status post manual disimpaction in the ER last bowel movement 05/19, continue Colace and MiraLax ,give lactulose Leukocytosis--some element of chronicity but much high, repeat CBC showed WBC trending down but since chronic leukocytosis will recommend outpatient hematology follow-up, CT abdomen showed no acute findings except for moderate rectosigmoid stool. Schizophrenia-- Continue home meds, noted to be anxious , increase dose of BuSpar to t.i.d. added ativan no behavioral issues this morning BPH--Flomax DVT prophylaxis:? Lovenox. Code status: Full code need for inaptient: respiratory distress with hypoxia need IV antibiotic IV steroids and close clinical follow-up that cannot be provided at less acute setting. patient healthcare proxy is his sister Ana Paige , Quality Stroke Does the patient have a stroke diagnosis?: No VTE Prior VTE?: No VTE Risk Level:: Medical - moderate - high VTE Device Contraindication: Treatment Not Indicated VTE Drug Contraindication: N/A - Med Ordered
[2022-05-21] MEDS: Lactulose 20 GM/30 ML SOLUTION 10 GM PO (14:56)
[2022-05-21] MEDS: LORazepam 0.5 MG TABLET PO (14:57)
[2022-05-21 15:04] LABS: Hematocrit 37.9 % (42.0-52.0); Hemoglobin 12.9 g/dl (14.0-18.0); Mean Corpuscular Hemoglobin 30.6 pg (27.0-33.0); Mean Platelet Volume 9.2 fL (9.4-12.4); Platelet Count 390 X10*3/uL (160-400); Red Blood Count 4.21 X10*6/uL (4.60-5.80); Red Cell Distribution Width 14.5 % (11.0-16.0)
[2022-05-21] MEDS: methylPREDNISolone Sod Succ 125 MG/2 ML VIAL 60 MG IVPUSH ×2 (15:04→22:39)
[2022-05-21] MEDS: Piperacillin Sodium/Tazobactam 3.375 GM in 0.9 % Sodium Chloride 50 ML IV ×2 (15:04→20:51)
[2022-05-21 15:23] LABS: White Blood Count 65.8 X10*3/uL (4.8-10.8)
[2022-05-21] MEDS: Albuterol/Iprat 2.5/0.5MG 3 ML AMPUL.NEB INHALE (15:25)
[2022-05-21 15:39] LABS: Anion Gap 15 (12-20); Blood Urea Nitrogen 12 mg/dL (9-16); Calcium 7.9 mg/dL (8.4-10.2); Carbon Dioxide 25 mmol/L (22-29); Chloride 99 mmol/L (96-108); Creatinine Clr Calc Pharmacy 121.8; Estimated Glomerular Filt Rate > 60; Glucose Random 173 mg/dL (60-115); Magnesium 1.8 mg/dL (1.6-2.6); Potassium 4.8 mmol/L (3.3-5.1); Sodium 134 mmol/L (135-145)
[2022-05-21] MEDS: vancomycin HCL 1,000 MG, vancomycin HCL 750 MG in 0.9 % Sodium Chloride 500 ML 267.5 MG IV (17:09)
[2022-05-21] MEDS: OLANZapine 10 MG TABLET PO (20:50)
[2022-05-21] MEDS: Enoxaparin Sodium 40 MG/0.4 ML SYRINGE SUBCUT (22:39)
[2022-05-22] VITALS (8 sets, daily range): BP systolic 146–165; BP diastolic 66–75; PULSE 86–107; RESP 18–24; TEMP 36.7–37.3; O2SAT 90–98
[2022-05-22] MEDS: methylPREDNISolone Sod Succ 125 MG/2 ML VIAL 60 MG IVPUSH ×4 (03:02→22:32)
[2022-05-22] MEDS: Piperacillin Sodium/Tazobactam 3.375 GM in 0.9 % Sodium Chloride 50 ML IV ×4 (03:05→20:03)
[2022-05-22] MEDS: vancomycin HCL 750 MG in 0.9 % Sodium Chloride 250 ML 265 MG IV (06:33)
[2022-05-22 07:14] LABS: Hemoglobin 12.1 g/dl (14.0-18.0); Mean Corpuscular HGB Conc 33.6 g/dl (31.0-36.0); Mean Corpuscular Volume 89.3 fL (80.0-98.0); Mean Platelet Volume 9.6 fL (9.4-12.4); Platelet Count 385 X10*3/uL (160-400); Red Blood Count 4.03 X10*6/uL (4.60-5.80); Red Cell Distribution Width 14.4 % (11.0-16.0)
[2022-05-22 07:25] LABS: White Blood Count 53.3 X10*3/uL (4.8-10.8)
[2022-05-22] MEDS: Albuterol/Iprat 2.5/0.5MG 3 ML AMPUL.NEB INHALE ×2 (07:54→11:44)
[2022-05-22] MEDS: Fluticasone/Vilanterol 200/25 BLST.W.DEV 1 PUFF INHALE (08:05)
[2022-05-22] MEDS: Nicotine 21 MG PATCH.TD24 TRANSDERMA (08:12)
[2022-05-22] MEDS: polyethylene glycoL 3350 17 GM POWD.PACK PO (08:12)
[2022-05-22] MEDS: Docusate Sodium 100 MG CAPSULE 200 MG PO (08:13)
[2022-05-22 08:14] LABS: Estimated Glomerular Filt Rate > 60
[2022-05-22] MEDS: hydrOXYzine HCL 10 MG TABLET PO (08:14)
[2022-05-22] MEDS: Folic Acid 1 MG TABLET PO (08:14)
[2022-05-22] MEDS: Tamsulosin HCL 0.4 MG CAPSULE PO (08:15)
[2022-05-22] MEDS: Acamprosate Calcium 333 MG TABLET.DR PO ×3 (08:15→20:04)
[2022-05-22] MEDS: Gabapentin 100 MG CAPSULE PO ×2 (08:15→20:04)
[2022-05-22] MEDS: busPIRone HCl 5 MG TABLET 7.5 MG PO ×3 (08:15→20:04)
[2022-05-22] MEDS: guaiFENesin DM 200/20/10 ML 10 ML SYRUP PO ×4 (08:17→20:03)
[2022-05-22] MEDS: Nystatin Oral Susp 500,000 UNIT/5 ML ORAL.SUSP 500000 UNIT PO ×4 (08:17→20:03)
[2022-05-22] MEDS: Morphine Sulfate 2 MG/ML CARTRIDGE IVPUSH ×2 (08:18→13:51)
[2022-05-22] MEDS: 0.9 % Sodium Chloride Flush 3 ML SYRINGE IVFLUSH ×2 (08:19→17:01)
[2022-05-22] MEDS: LORazepam 0.5 MG TABLET PO ×2 (13:49→23:14)
--- NOTE | 2022-05-22 16:10 | P.PNIM_ITS ---
Subjective Subjective Date of Service: 05/22/22 Interval History: being followed for acute on chronic hypoxic respiratory failure left upper lobe pneumonia and COPD exacerbation patient complaining of persistent shortness of breath I cant breathe, I cant breath, but noted to be much more comfortable not using accessory muscles oxygenation is 94 95% on 5 L. Review of Systems [employer] no headache no dizziness CVS no chest pain, no palpitation GI no nausea, no vomiting Review of Systems: Yes all other systems are reviewed and are negative Physical Exam Vital Signs: Vital Signs: Last Vital Signs Temp 99.1 F 05/22/22 15:16 Pulse 90 05/22/22 15:16 Resp 18 05/22/22 15:16 BP 146/66 H 05/22/22 15:16 Pulse Ox 92 05/22/22 15:16 O2 Del Method 05/22/22 15:16 O2 Flow Rate 4.5 05/22/22 15:16 Oxygen Flow Rate 5 05/13/22 18:31 BMI result Body Mass Index 23.6 Const: Other: General? awake tray rt x3 ,? no respir atory distress ora l cavity decayed l ower teeth, white patches on the ton sasha resolved Neck? no JVD. CVS? tach ycardia Respirator y lungs? scattere d wheeze, diminish ed breath sounds, no crackles, no u se of accessorymus cles Gastrointesti nal abdomen soft, nontender, bowel s ounds audible, Ext remities no? edema . Neuro nonfocal S kin no rash psych less anxious Objective Data Active Medications Acamprosate (Acamprosate Calcium 333 Mg Tablet.) 333 mg PO TID [facility] Last Admin: 05/22/22 13:59 Dose: 333 mg Documented By: AZAEL Acetaminophen (Acetaminophen 325 Mg Tablet) 650 mg PO Q6H PRN PRN Reason: Pain, Mild (Pain Scale 1-3) Last Admin: 05/16/22 20:11 Dose: 650 mg Documented By: NARINDER Albuterol Sulfate (Albuterol Sulfate 90 Mcg 8 Gm Inhaler) 1 puff INHALE Q4H PRN PRN Reason: Wheezing Last Admin: 05/16/22 05:48 Dose: 1 puff Documented By: LAXMI Albuterol/Ipratropium (Albuterol/Iprat 2.5/0.5mg 3 Ml Ampul.Neb) 3 ml INHALE RQ4H WHILE AWAKE PRN PRN Reason: Shortness of Breath/Wheezing Last Admin: 05/22/22 11:44 Dose: 3 ml Documented By: RODRIGO Buspirone HCl (Buspirone Hcl 5 Mg Tablet) 7.5 mg PO TID [facility] Last Admin: 05/22/22 13:59 Dose: 7.5 mg Documented By: AZAEL Docusate Sodium (Docusate Sodium 100 Mg Capsule) 200 mg PO DAILY [facility] Last Admin: 05/22/22 08:13 Dose: 200 mg Documented By: AZAEL Enoxaparin Sodium (Enoxaparin Sodium 40 Mg/0.4 Ml Syringe) 40 mg SUBCUT Q24H [facility] Last Admin: 05/21/22 22:39 Dose: 40 mg Documented By: VANITA Fluticasone/Vilanterol (Fluticasone/Vilanterol 200/25 Blst.W.Dev) 1 puff INHALE RDAILY [facility] Last Admin: 05/22/22 08:05 Dose: 1 puff Documented By: RODRIGO Folic Acid (Folic Acid 1 Mg Tablet) 1 mg PO DAILY [facility] Last Admin: 05/22/22 08:14 Dose: 1 mg Documented By: AZAEL Gabapentin (Gabapentin 100 Mg Capsule) 100 mg PO BID [facility] Last Admin: 05/22/22 08:15 Dose: 100 mg Documented By: AZAEL Guaifenesin/Dextromethorphan (Guaifenesin Dm 200/20/10 Ml 10 Ml Syrup) 10 ml PO QID [facility] Last Admin: 05/22/22 13:49 Dose: 10 ml Documented By: AZAEL Hydroxyzine HCl (Hydroxyzine Hcl 10 Mg Tablet) 10 mg PO DAILY PRN PRN Reason: Anxiety Last Admin: 05/22/22 08:14 Dose: 10 mg Documented By: AZAEL Piperacillin Sod/Tazobactam (Sod 3.375 gm/ Sodium Chloride) 50 mls @ 100 mls/hr IV Q6H [facility] Last Infusion: 05/22/22 14:25 Dose: 0 mls/hr Documented By: AZAEL Vancomycin HCl 750 mg/ Sodium (Chloride) 265 mls @ 265 mls/hr IV Q12H [facility] Last Infusion: 05/22/22 08:26 Dose: 0 mls/hr Documented By: AZAEL Levalbuterol HCl (Levalbuterol Hcl 1.25 Mg/0.5 Ml Vial.Neb) 1.25 mg INHALE Q3H PRN PRN Reason: Shortness of Breath/Wheezing Last Admin: 05/21/22 22:54 Dose: 1.25 mg Documented By: LEE Levalbuterol HCl (Levalbuterol Hcl 1.25 Mg/0.5 Ml Vial.Neb) 1.25 mg INHALE RQ4H WHILE AWAKE [facility] Last Admin: 05/22/22 11:47 Dose: Not Given Documented By: RODRIGO Non-Admin Reason: duo neb given Lorazepam (Lorazepam 0.5 Mg Tablet) 0.5 mg PO Q8H PRN PRN Reason: Anxiety Last Admin: 05/22/22 13:49 Dose: 0.5 mg Documented By: AZAEL Melatonin (Melatonin 3 Mg Tablet) 6 mg PO BEDTIME PRN PRN Reason: Insomnia Last Admin: 05/14/22 22:47 Dose: 6 mg Documented By: ANGIE Methylprednisolone Sodium Succinate (Methylprednisolone Sod Succ 125 Mg/2 Ml Vial) 60 mg IVPUSH Q6H [facility] Last Admin: 05/22/22 08:55 Dose: 60 mg Documented By: AZAEL Nicotine (Nicotine 21 Mg Patch.Td24) 21 mg TRANSDERMA DAILY [facility] Last Admin: 05/22/22 08:12 Dose: 21 mg Documented By: AZAEL Nystatin (Nystatin Oral Susp 500,000 Unit/5 Ml Oral.Susp) 500,000 unit PO QID [facility]; Protocol Last Admin: 05/22/22 13:49 Dose: 500,000 unit Documented By: AZAEL Olanzapine (Olanzapine 10 Mg Tablet) 10 mg PO BEDTIME [facility] Last Admin: 05/21/22 20:50 Dose: 10 mg Documented By: VANITA Pharmacy Consult (Consult Rx Perform Med Rec) 1 each MISCELLANE ONCE PRN PRN Reason: Consult order Pharmacy Consult (Consult Rx Vancomycin Dosing) 1 each MISCELLANE DAILY PRN PRN Reason: Consult order Polyethylene Glycol (Polyethylene Glycol 3350 17 Gm Powd.Pack) 17 gm PO DAILY [facility] Last Admin: 05/22/22 08:12 Dose: 17 gm Documented By: AZAEL Senna (Sennosides 8.6 Mg Tablet) 17.2 mg PO BEDTIME PRN PRN Reason: Constipation Last Admin: 05/19/22 02:45 Dose: 17.2 mg Documented By: WESTLEY Sodium Chloride (0.9 % Sodium Chloride Flush 3 Ml Syringe) 3 ml IVFLUSH QSHIFT [facility] Last Admin: 05/22/22 08:19 Dose: 3 ml Documented By: AZAEL Tamsulosin HCl (Tamsulosin Hcl 0.4 Mg Capsule) 0.4 mg PO DAILY [facility] Last Admin: 05/22/22 08:15 Dose: 0.4 mg Documented By: AZAEL Trazodone HCl (Trazodone Hcl 100 Mg Tablet) 100 mg PO BEDTIME PRN PRN Reason: Insomnia Last Admin: 05/19/22 02:45 Dose: 100 mg Documented By: WESTLEY Labs CBC & Chem 7: 05/22/22 06:37 05/22/22 06:37 Labs: Laboratory Results - last 24 hr 05/22/22 05/22/22 06:37 06:37 MCV 89.3 MCH 30.0 MCHC 33.6 RDW 14.4 Plt Count 385 MPV 9.6 Absolute Nucleated RBC 0.000 Nucleated RBC % (auto) 0.0 Estim Creat Clear Calc 124.0 Estimated GFR > 60 Assessment and Plan (1) Pneumonia: Status: Acute Plan 66-year-old male with a past medical history of COPD, chronic respiratory failure on 5 L of supplemental oxygen, history of pneumothorax, schizophrenia, tobacco dependence presented to the hospital today with a chief complaint of constipation/shortness of breath/cough or sputum production.? Noted to have pneumonia/constipation with fecal impaction.? Admitted for further management.? acute on chronic respiratory failure due to COPD exacerbation and pneumonia acute respiratory distress resolved patient still complaining of shortness of breath no use of accessory muscles improved heart rate in oxygenation ABGs 05/21 showed pH 7.5, pCO2 32 PO2 of 78 O2 sat 96%, chest x-ray showed left upper lobe worsening infiltrate /emphysema patient finish 8 day course of azithromycin and ceftriaxone now on IV Zosyn, and IV vancomycin day 2, cont. IV Solu Medrol 60 mg q.6 hours, Xopenex updraft q.4 hours and Breo CTA chest 05/17 showed no PE cont. Ativan 0.5 mg t.i.d.prn, continue BuSpar t.i.d. support provided continue close clinical follow-up. high-flow oxygen ordered to be use as needed Pneumonia: afebrile, oxygen requirement fluctuates currently on 5 L chest x-ray showed worsening left upper lobe infiltrate, placed on Zosyn /vanco status post azithromycin and Ceftin x8 days blood culture showed no growth Patient noted to have severe leukocytosis-likely in setting of chronic prednisone plus pneumonia plus dehydration. will recommend outpatient hematology follow-up, noted to have a neutrophil predominance? CT chest showed no PE, continue cough medication Sinus tachycardia, tele monitor showed intermittent sinus tachycardia with frequent PACs likely due to COPD exacerbation/hypoxia, nicotine withdrawal and anxiety TSH within normal range, pseudo ephedrine discontinued troponin within normal range EKG showed sinus tach with PACs , CTA chest no PE oral thrush on nystatin q.i.d.day 11/08 recommend to rinse mouth after steroid inhalers mild hypokalemia repleted repeat beat potassium normalized Constipation:?Status post manual disimpaction in the ER last bowel movement 05/19, continue Colace and MiraLax ,prn lactulose Leukocytosis--some element of chronicity but much high, repeat CBC showed WBC trending down likely due to infection and steroids follow CBC if remains elevated outpatient hematology workup Schizophrenia-- Continue home meds, noted to be anxious , increase dose of BuS par to t.i.d. added ativan no behavioral issues this morning, sister is the healthcare proxy BPH--Flomax DVT prophylaxis:? Lovenox. Code status: Full code need for inaptient: respiratory distress with hypoxia need IV antibiotic IV steroids and close clinical follow-up that cannot be provided at less acute setting. patient healthcare proxy is his sister Ana Paige , Quality Stroke Does the patient have a stroke diagnosis?: No VTE Prior VTE?: No VTE Risk Level:: Medical - moderate - high VTE Device Contraindication: Treatment Not Indicated VTE Drug Contraindication: N/A - Med Ordered
[2022-05-22 16:50] LABS: Vancomycin Random 6.8 mcg/mL (15-20)
--- NOTE | 2022-05-22 17:00 | HE.PHANOTE ---
RE PADMAJA INCREASING DOSE TO 1GRAM Q12H, SUSPECTED auc 513, TROUGH 16.8. Next random level 05/23 @1500
[2022-05-22] MEDS: vancomycin HCL 1,000 MG in 0.9 % Sodium Chloride 250 ML 270 MG IV (17:04)
[2022-05-22] MEDS: OLANZapine 10 MG TABLET PO (20:03)
[2022-05-22] MEDS: Enoxaparin Sodium 40 MG/0.4 ML SYRINGE SUBCUT (22:33)
[2022-05-23] VITALS (9 sets, daily range): BP systolic 147–150; BP diastolic 63–70; PULSE 80–102; RESP 17–22; TEMP 36.6–37.6; O2SAT 91–100
[2022-05-23] MEDS: 0.9 % Sodium Chloride Flush 3 ML SYRINGE IVFLUSH ×4 (00:21→23:03)
[2022-05-23] MEDS: Piperacillin Sodium/Tazobactam 3.375 GM in 0.9 % Sodium Chloride 50 ML IV ×4 (03:11→20:57)
[2022-05-23] MEDS: methylPREDNISolone Sod Succ 125 MG/2 ML VIAL 60 MG IVPUSH ×4 (03:55→20:54)
[2022-05-23] MEDS: vancomycin HCL 1,000 MG in 0.9 % Sodium Chloride 250 ML 270 MG IV (05:37)
[2022-05-23 05:54] LABS: Hematocrit 33.4 % (42.0-52.0); Hemoglobin 11.6 g/dl (14.0-18.0); Mean Corpuscular HGB Conc 34.7 g/dl (31.0-36.0); Mean Corpuscular Hemoglobin 31.3 pg (27.0-33.0); Mean Platelet Volume 9.3 fL (9.4-12.4); Platelet Count 449 X10*3/uL (160-400); Red Blood Count 3.71 X10*6/uL (4.60-5.80)
[2022-05-23 06:05] LABS: White Blood Count 33.9 X10*3/uL (4.8-10.8)
[2022-05-23 06:20] LABS: Creatinine Clr Calc Pharmacy 121.8; Estimated Glomerular Filt Rate > 60
[2022-05-23] MEDS: Fluticasone/Vilanterol 200/25 BLST.W.DEV 1 PUFF INHALE (08:03)
[2022-05-23] MEDS: Nicotine 21 MG PATCH.TD24 TRANSDERMA (08:19)
[2022-05-23 09:35] LABS: Procalcitonin 0.19 ng/mL
[2022-05-23] MEDS: Nystatin Oral Susp 500,000 UNIT/5 ML ORAL.SUSP 500000 UNIT PO ×4 (10:22→20:53)
[2022-05-23] MEDS: Docusate Sodium 100 MG CAPSULE 200 MG PO (10:22)
[2022-05-23] MEDS: Acamprosate Calcium 333 MG TABLET.DR PO ×3 (10:22→20:53)
[2022-05-23] MEDS: Folic Acid 1 MG TABLET PO (10:22)
[2022-05-23] MEDS: Tamsulosin HCL 0.4 MG CAPSULE PO (10:22)
[2022-05-23] MEDS: busPIRone HCl 5 MG TABLET 7.5 MG PO ×3 (10:22→20:53)
[2022-05-23] MEDS: polyethylene glycoL 3350 17 GM POWD.PACK PO (10:22)
[2022-05-23] MEDS: guaiFENesin DM 200/20/10 ML 10 ML SYRUP PO ×4 (10:23→20:53)
[2022-05-23] MEDS: Gabapentin 100 MG CAPSULE PO ×2 (10:23→20:57)
[2022-05-23] MEDS: Ipratropium Bromide 0.5 MG/2.5 ML SOLUTION INHALE ×3 (11:25→18:44)
[2022-05-23 13:20] LABS: MRSA Nasal PCR NEGATIVE (Negative); SA Nasal PCR NEGATIVE (Negative)
[2022-05-23 13:50] LABS: Adenovirus PCR Not Detected (Not Detect.); Bordetella parapertussis PCR Not Detected (Not Detect.); Bordetella pertussis PCR Not Detected (Not Detect.); Chlamydia pneumoniae PCR Not Detected (Not Detect.); Coronavirus 229E PCR Not Detected (Not Detect.); Coronavirus HKU1 PCR Not Detected (Not Detect.); Coronavirus NL63 PCR Not Detected (Not Detect.); Coronavirus OC43 PCR Not Detected (Not Detect.); Human metapneumovirus PCR Not Detected (Not Detect.); Influenza A PCR Not Detected (Not Detect.); Influenza B PCR Not Detected (Not Detect.); Mycoplasma pneumoniae PCR Not Detected (Not Detect.); Parainfluenza 1 PCR Not Detected (Not Detect.); Parainfluenza 2 PCR Not Detected (Not Detect.); Parainfluenza 3 PCR Not Detected (Not Detect.); Parainfluenza 4 PCR Not Detected (Not Detect.); RSV PCR Not Detected (Not Detect.); Rhino/Enterovirus PCR Not Detected (Not Detect.); SARS-CoV-2 PCR Not Detected (Not Detect.)
--- NOTE | 2022-05-23 15:11 | P.PNIM_ITS ---
Subjective Subjective Date of Service: 05/23/22 Interval History: C/o anxiety + dyspnea on home O2 5L no fever Review of Systems Review of Systems: Yes all other systems are reviewed and are negative Physical Exam Vital Signs: Vital Signs: Last Vital Signs Temp 99.0 F 05/23/22 15:02 Pulse 99 05/23/22 15:02 Resp 20 05/23/22 15:02 BP 147/65 H 05/23/22 15:02 Pulse Ox 96 05/23/22 15:02 O2 Del Method 05/23/22 15:02 O2 Flow Rate 4.5 05/23/22 15:02 Oxygen Flow Rate 5 05/13/22 18:31 BMI result Body Mass Index 23.6 Gen: anxious, no resp distress HEENT: sclera anicteric, moist mucus membranes Neck: supple Lungs: diffuse exp wheezing, no accessory muscle use Heart: regular rate and rhythm, no murmurs Abd: soft, non-tender, non-distended Ext: no edema Skin: warm/well-perfused Neuro: alert and oriented x3, no focal findings Psych: anxious Objective Data Active Medications Acamprosate (Acamprosate Calcium 333 Mg Tablet.) 333 mg PO TID [facility] Last Admin: 05/23/22 14:27 Dose: 333 mg Documented By: YANELI Acetaminophen (Acetaminophen 325 Mg Tablet) 650 mg PO Q6H PRN PRN Reason: Pain, Mild (Pain Scale 1-3) Last Admin: 05/16/22 20:11 Dose: 650 mg Documented By: NARINDER Buspirone HCl (Buspirone Hcl 5 Mg Tablet) 7.5 mg PO TID [facility] Last Admin: 05/23/22 14:27 Dose: 7.5 mg Documented By: YANELI Docusate Sodium (Docusate Sodium 100 Mg Capsule) 200 mg PO DAILY [facility] Last Admin: 05/23/22 10:22 Dose: 200 mg Documented By: YANELI Enoxaparin Sodium (Enoxaparin Sodium 40 Mg/0.4 Ml Syringe) 40 mg SUBCUT Q24H [facility] Last Admin: 05/22/22 22:33 Dose: 40 mg Documented By: OSMEL Fluticasone/Vilanterol (Fluticasone/Vilanterol 200/25 Blst.W.Dev) 1 puff INHALE RDAILY [facility] Last Admin: 05/23/22 08:03 Dose: 1 puff Documented By: CHASE Folic Acid (Folic Acid 1 Mg Tablet) 1 mg PO DAILY [facility] Last Admin: 05/23/22 10:22 Dose: 1 mg Documented By: YANELI Gabapentin (Gabapentin 100 Mg Capsule) 100 mg PO BID [facility] Last Admin: 05/23/22 10:23 Dose: 100 mg Documented By: YANELI Guaifenesin/Dextromethorphan (Guaifenesin Dm 200/20/10 Ml 10 Ml Syrup) 10 ml PO QID [facility] Last Admin: 05/23/22 14:27 Dose: 10 ml Documented By: YANELI Hydroxyzine HCl (Hydroxyzine Hcl 10 Mg Tablet) 10 mg PO DAILY PRN PRN Reason: Anxiety Last Admin: 05/22/22 08:14 Dose: 10 mg Documented By: AZAEL Piperacillin Sod/Tazobactam (Sod 3.375 gm/ Sodium Chloride) 50 mls @ 100 mls/hr IV Q6H [facility] Last Admin: 05/23/22 14:28 Dose: 100 mls/hr Documented By: YANELI Vancomycin HCl 1,000 mg/ (Sodium Chloride) 270 mls @ 270 mls/hr IV Q12H [facility] Last Infusion: 05/23/22 08:25 Dose: 0 mls/hr Documented By: YANELI Ipratropium [place] (Ipratropium [place] 0.5 Mg/2.5 Ml Solution) 0.5 mg INHALE RQ4H WHILE AWAKE [facility] Last Admin: 05/23/22 11:25 Dose: 0.5 mg Documented By: CHASE Levalbuterol HCl (Levalbuterol Hcl 1.25 Mg/0.5 Ml Vial.Neb) 1.25 mg INHALE RQ4H WHILE AWAKE [facility] Last Admin: 05/23/22 11:25 Dose: 1.25 mg Documented By: CHASE Levalbuterol HCl (Levalbuterol Hcl 1.25 Mg/0.5 Ml Vial.Neb) 1.25 mg INHALE Q2H PRN PRN Reason: shortness of breath/wheeze Lorazepam (Lorazepam 0.5 Mg Tablet) 0.5 mg PO Q8H PRN PRN Reason: Anxiety Last Admin: 05/22/22 23:14 Dose: 0.5 mg Documented By: OSMEL Melatonin (Melatonin 3 Mg Tablet) 6 mg PO BEDTIME PRN PRN Reason: Insomnia Last Admin: 05/14/22 22:47 Dose: 6 mg Documented By: ANGIE Methylprednisolone Sodium Succinate (Methylprednisolone Sod Succ 125 Mg/2 Ml Vial) 60 mg IVPUSH Q6H [facility] Last Admin: 05/23/22 10:42 Dose: 60 mg Documented By: YANELI Nicotine (Nicotine 21 Mg Patch.Td24) 21 mg TRANSDERMA DAILY [facility] Last Admin: 05/23/22 08:19 Dose: 21 mg Documented By: YANELI Nystatin (Nystatin Oral Susp 500,000 Unit/5 Ml Oral.Susp) 500,000 unit PO QID [facility]; Protocol Last Admin: 05/23/22 14:27 Dose: 500,000 unit Documented By: YANELI Olanzapine (Olanzapine 10 Mg Tablet) 10 mg PO BEDTIME [facility] Last Admin: 05/22/22 20:03 Dose: 10 mg Documented By: OSMEL Pharmacy Consult (Consult Rx Perform Med Rec) 1 each MISCELLANE ONCE PRN PRN Reason: Consult order Pharmacy Consult (Consult Rx Vancomycin Dosing) 1 each MISCELLANE DAILY PRN PRN Reason: Consult order Polyethylene Glycol (Polyethylene Glycol 3350 17 Gm Powd.Pack) 17 gm PO DAILY [facility] Last Admin: 05/23/22 10:22 Dose: 17 gm Documented By: YANELI Senna (Sennosides 8.6 Mg Tablet) 17.2 mg PO BEDTIME PRN PRN Reason: Constipation Last Admin: 05/19/22 02:45 Dose: 17.2 mg Documented By: WESTLEY Sodium Chloride (0.9 % Sodium Chloride Flush 3 Ml Syringe) 3 ml IVFLUSH QSHIFT [facility] Last Admin: 05/23/22 08:20 Dose: 3 ml Documented By: YANELI Tamsulosin HCl (Tamsulosin Hcl 0.4 Mg Capsule) 0.4 mg PO DAILY [facility] Last Admin: 05/23/22 10:22 Dose: 0.4 mg Documented By: YANELI Tiotropium [place] (Tiotropium [place] 18 Mcg Cap.W.Dev) 1 puff INHALE RDAILY [facility] Last Admin: 05/23/22 11:25 Dose: 1 puff Documented By: CHASE Trazodone HCl (Trazodone Hcl 100 Mg Tablet) 100 mg PO BEDTIME PRN PRN Reason: Insomnia Last Admin: 05/19/22 02:45 Dose: 100 mg Documented By: WESTLEY Labs CBC & Chem 7: 05/23/22 05:29 05/23/22 05:29 Labs: Laboratory Results - last 24 hr 05/21/22 05/22/22 05/23/22 14:58 16:18 05:29 MCV MCH MCHC RDW Plt Count MPV Absolute Nucleated RBC Nucleated RBC % (auto) Smear Path Review Estim Creat Clear Calc 121.8 Estimated GFR > 60 Procalcitonin Nasal Screen MRSA (PCR) Nasal S. aureus Screen Nasal MRSA/S.aureus Interp Random Vancomycin 6.8 L Respiratory Panel [place] Adenovirus (Rapid PCR) B.pert (TEM-PCR) B.parapertussis DNA PCR C. pneumoniae DNA (PCR) Coronavirus OC43 (PCR) Coronavirus HKU1 (PCR) Coronavirus 229E (PCR) Coronavirus NL63 (PCR) Human Metapneumovir PCR Influenza A (RT-PCR) Influenza B (RT-PCR) M. pneumoniae (PCR) Parainfluenza 1 (PCR) Parainfluenza 2 (PCR) Parainfluenza 3 (PCR) Parainfluenza 4 (PCR) RSV (PCR) Entero/Rhino (PCR) SARS-CoV-2 RNA (RT-PCR) 05/23/22 05/23/22 05/23/22 05:29 05:29 10:39 MCV 90.0 MCH 31.3 MCHC 34.7 RDW 14.0 Plt Count 449 H MPV 9.3 L Absolute Nucleated RBC 0.000 Nucleated RBC % (auto) 0.0 Smear Path Review Estim Creat Clear Calc Estimated GFR Procalcitonin 0.19 Nasal Screen MRSA (PCR) Nasal S. aureus Screen Nasal MRSA/S.aureus Interp Random Vancomycin Respiratory Panel [place] Cancelled Adenovirus (Rapid PCR) Cancelled B.pert (TEM-PCR) Cancelled B.parapertussis DNA PCR Cancelled C. pneumoniae DNA (PCR) Cancelled Coronavirus OC43 (PCR) Cancelled Coronavirus HKU1 (PCR) Cancelled Coronavirus 229E (PCR) Cancelled Coronavirus NL63 (PCR) Cancelled Human Metapneumovir PCR Cancelled Influenza A (RT-PCR) Cancelled Influenza B (RT-PCR) Cancelled M. pneumoniae (PCR) Cancelled Parainfluenza 1 (PCR) Cancelled Parainfluenza 2 (PCR) Cancelled Parainfluenza 3 (PCR) Cancelled Parainfluenza 4 (PCR) Cancelled RSV (PCR) Cancelled Entero/Rhino (PCR) Cancelled SARS-CoV-2 RNA (RT-PCR) Cancelled 05/23/22 05/23/22 10:40 11:46 MCV MCH MCHC RDW Plt Count MPV Absolute Nucleated RBC Nucleated RBC % (auto) Smear Path Review Estim Creat Clear Calc Estimated GFR Procalcitonin Nasal Screen MRSA (PCR) NEGATIVE Nasal S. aureus Screen NEGATIVE Nasal MRSA/S.aureus Interp SEE NOTE Random Vancomycin Respiratory Panel [place] See Note Adenovirus (Rapid PCR) Not Detected B.pert (TEM-PCR) Not Detected B.parapertussis DNA PCR Not Detected C. pneumoniae DNA (PCR) Not Detected Coronavirus OC43 (PCR) Not Detected Coronavirus HKU1 (PCR) Not Detected Coronavirus 229E (PCR) Not Detected Coronavirus NL63 (PCR) Not Detected Human Metapneumovir PCR Not Detected Influenza A (RT-PCR) Not Detected Influenza B (RT-PCR) Not Detected M. pneumoniae (PCR) Not Detected Parainfluenza 1 (PCR) Not Detected Parainfluenza 2 (PCR) Not Detected Parainfluenza 3 (PCR) Not Detected Parainfluenza 4 (PCR) Not Detected RSV (PCR) Not Detected Entero/Rhino (PCR) Not Detected SARS-CoV-2 RNA (RT-PCR) Not Detected Assessment and Plan (1) Pneumonia: Status: Acute [facility] hospital d#11 66yo M with COPD, chronic hypoxic resp failure on 5L O2, hx PTX, tobacco dependence, schizophrenia p/w dyspnea + cough, admited for PNA, constipation + fecal impaction # acute/chronic hypoxic resp failure due to COPD exac + PNA - completed 8d of azithro + ceftriaxone, now on pip/isaac + vanc d#3 - continue steroids- start to wean - continue triple controller therapy - continue nebs + ICS/LABA - MRSA neg, RVP neg, trend PCT - no PE on CTA 05/17 # leukocytosis - likely due to steroids, outpt heme/onc if remains elevated # sinus tachycardia - intermittent sinus tach + frequent PACs - attributed to COPD exac, hypoxia, nicotine withdrawal, anxiety; TSH normal, pseudoephedrine discontinued, Tn-I normal, no PE on CTE # oral thrush - due to steroids , on nystatin d#12/09 # hypoK - repleted # constipation - s/p manual disimpaction, continue stool softeners # BPH - tamulosin # AUD - acamprosate # schizophrenia - continue lorazepam, buspirone, olanzapine # VTE ppx: LMWH # dispo: anticipate STr In my clinical judgment, the patient requires continued hospitalization for the following reasons: IV ABX istress with hypoxia need IV antibiotic IV steroids and close clinical follow-up that cannot be provided at less acute setting. patient healthcare proxy is his sister Ana Paige , Quality Stroke Does the patient have a stroke diagnosis?: No VTE Prior VTE?: No VTE Risk Level:: Medical - moderate - high VTE Device Contraindication: Treatment Not Indicated VTE Drug Contraindication: N/A - Med Ordered
[2022-05-23 15:44] LABS: Vancomycin Random 9.2 mcg/mL (15-20)
--- NOTE | 2022-05-23 16:03 | HE.PHANOTE ---
Vanco dosing adjustment Trough came back at 9.2. Dose increased to [id number] with next trough planned for 1500 on 05/24. predicted auc of [phone]
[2022-05-23] MEDS: vancomycin HCL 1,250 MG in 0.9 % Sodium Chloride 250 ML 166.67 MG IV (18:01)
[2022-05-23] MEDS: OLANZapine 10 MG TABLET PO (20:53)
[2022-05-23] MEDS: Enoxaparin Sodium 40 MG/0.4 ML SYRINGE SUBCUT (23:02)
[2022-05-24] VITALS (10 sets, daily range): BP systolic 135–177; BP diastolic 64–82; PULSE 85–101; RESP 16–20; TEMP 36.7–37.9; O2SAT 92–98
[2022-05-24] MEDS: Piperacillin Sodium/Tazobactam 3.375 GM in 0.9 % Sodium Chloride 50 ML IV ×4 (02:55→20:49)
[2022-05-24] MEDS: methylPREDNISolone Sod Succ 125 MG/2 ML VIAL 60 MG IVPUSH (03:05)
[2022-05-24] MEDS: vancomycin HCL 1,250 MG in 0.9 % Sodium Chloride 250 ML 166.67 MG IV (04:18)
[2022-05-24] MEDS: Ipratropium Bromide 0.5 MG/2.5 ML SOLUTION INHALE ×4 (07:37→20:14)
[2022-05-24] MEDS: Fluticasone/Vilanterol 200/25 BLST.W.DEV 1 PUFF INHALE (07:37)
[2022-05-24] MEDS: Tamsulosin HCL 0.4 MG CAPSULE PO (07:49)
[2022-05-24] MEDS: Docusate Sodium 100 MG CAPSULE 200 MG PO (07:49)
[2022-05-24] MEDS: Nystatin Oral Susp 500,000 UNIT/5 ML ORAL.SUSP 500000 UNIT PO ×4 (07:49→20:49)
[2022-05-24] MEDS: Acamprosate Calcium 333 MG TABLET.DR PO ×3 (07:49→20:49)
[2022-05-24] MEDS: Folic Acid 1 MG TABLET PO (07:49)
[2022-05-24] MEDS: Nicotine 21 MG PATCH.TD24 TRANSDERMA (07:50)
[2022-05-24] MEDS: guaiFENesin DM 200/20/10 ML 10 ML SYRUP PO ×4 (07:50→20:49)
[2022-05-24] MEDS: 0.9 % Sodium Chloride Flush 3 ML SYRINGE IVFLUSH (07:50)
[2022-05-24] MEDS: polyethylene glycoL 3350 17 GM POWD.PACK PO (07:50)
[2022-05-24] MEDS: Gabapentin 100 MG CAPSULE PO ×2 (07:50→20:50)
[2022-05-24] MEDS: busPIRone HCl 5 MG TABLET 7.5 MG PO ×3 (07:50→20:50)
[2022-05-24] MEDS: methylPREDNISolone Sod Succ 40 MG/ML VIAL IVPUSH ×2 (10:29→20:49)
[2022-05-24] MEDS: Lidocaine 4 % Patch ADH..PATCH 1 PATCH TRANSDERMA (13:37)
--- NOTE | 2022-05-24 15:00 | P.PNIM_ITS ---
Subjective Subjective Date of Service: 05/24/22 Interval History: refused lab draw this morning c/o pain in ribs with coughing c/o dyspnea though breathing comfortably Review of Systems Review of Systems: Yes all other systems are reviewed and are negative Physical Exam Vital Signs: Vital Signs: Last Vital Signs Temp 98.4 F 05/24/22 10:44 Pulse 85 05/24/22 11:14 Resp 16 05/24/22 11:14 BP 153/77 H 05/24/22 10:44 Pulse Ox 98 05/24/22 10:44 O2 Del Method 05/24/22 10:44 O2 Flow Rate 3 05/24/22 10:44 Oxygen Flow Rate 5 05/13/22 18:31 BMI result Body Mass Index 23.6 Gen: NAD HEENT: sclera anicteric, moist mucus membranes Neck: supple Lungs: scattered expiratory wheezing, no accessory muscle use Heart: regular rate and rhythm, no murmurs Abd: soft, non-tender, non-distended Ext: no edema Skin: warm/well-perfused Neuro: alert and oriented x3, no focal findings Psych: restricted affect Objective Data Active Medications Acamprosate (Acamprosate Calcium 333 Mg Tablet.) 333 mg PO TID [facility] Last Admin: 05/24/22 07:49 Dose: 333 mg Documented By: YANELI Acetaminophen (Acetaminophen 325 Mg Tablet) 650 mg PO Q6H PRN PRN Reason: Pain, Mild (Pain Scale 1-3) Last Admin: 05/16/22 20:11 Dose: 650 mg Documented By: NARINDER Buspirone HCl (Buspirone Hcl 5 Mg Tablet) 7.5 mg PO TID [facility] Last Admin: 05/24/22 07:50 Dose: 7.5 mg Documented By: YANELI Docusate Sodium (Docusate Sodium 100 Mg Capsule) 200 mg PO DAILY [facility] Last Admin: 05/24/22 07:49 Dose: 200 mg Documented By: YANELI Enoxaparin Sodium (Enoxaparin Sodium 40 Mg/0.4 Ml Syringe) 40 mg SUBCUT Q24H [facility] Last Admin: 05/23/22 23:02 Dose: 40 mg Documented By: PAVITHRA Fluticasone/Vilanterol (Fluticasone/Vilanterol 200/25 Blst.W.Dev) 1 puff INHALE RDAILY [facility] Last Admin: 05/24/22 07:37 Dose: 1 puff Documented By: CHASE Folic Acid (Folic Acid 1 Mg Tablet) 1 mg PO DAILY [facility] Last Admin: 05/24/22 07:49 Dose: 1 mg Documented By: YANELI Gabapentin (Gabapentin 100 Mg Capsule) 100 mg PO BID [facility] Last Admin: 05/24/22 07:50 Dose: 100 mg Documented By: YANELI Guaifenesin/Dextromethorphan (Guaifenesin Dm 200/20/10 Ml 10 Ml Syrup) 10 ml PO QID [facility] Last Admin: 05/24/22 13:37 Dose: 10 ml Documented By: SHANNAN Guaifenesin/Dextromethorphan (Guaifenesin Dm 100/10/5 Ml 5 Ml Syrup) 5 ml PO Q4H PRN PRN Reason: cough Hydroxyzine HCl (Hydroxyzine Hcl 10 Mg Tablet) 10 mg PO DAILY PRN PRN Reason: Anxiety Last Admin: 05/22/22 08:14 Dose: 10 mg Documented By: AZAEL Piperacillin Sod/Tazobactam (Sod 3.375 gm/ Sodium Chloride) 50 mls @ 100 mls/hr IV Q6H [facility] Last Infusion: 05/24/22 14:20 Dose: 0 mls/hr Documented By: SHANNAN Ipratropium [place] (Ipratropium [place] 0.5 Mg/2.5 Ml Solution) 0.5 mg INHALE RQ4H WHILE AWAKE [facility] Last Admin: 05/24/22 11:12 Dose: 0.5 mg Documented By: CHASE Levalbuterol HCl (Levalbuterol Hcl 1.25 Mg/0.5 Ml Vial.Neb) 1.25 mg INHALE RQ4H WHILE AWAKE [facility] Last Admin: 05/24/22 11:13 Dose: 1.25 mg Documented By: CHASE Levalbuterol HCl (Levalbuterol Hcl 1.25 Mg/0.5 Ml Vial.Neb) 1.25 mg INHALE Q2H PRN PRN Reason: shortness of breath/wheeze Lidocaine (Lidocaine 4 % Patch Adh..Patch) 1 patch TRANSDERMA DAILY [facility]; Protocol Last Admin: 05/24/22 13:37 Dose: 1 patch Documented By: SHANNAN Lorazepam (Lorazepam 0.5 Mg Tablet) 0.5 mg PO Q8H PRN PRN Reason: Anxiety Last Admin: 05/22/22 23:14 Dose: 0.5 mg Documented By: OSMEL Melatonin (Melatonin 3 Mg Tablet) 6 mg PO BEDTIME PRN PRN Reason: Insomnia Last Admin: 05/14/22 22:47 Dose: 6 mg Documented By: ANGIE Methylprednisolone Sodium Succinate (Methylprednisolone Sod Succ 40 Mg/Ml Vial) 40 mg IVPUSH Q8H [facility] Last Admin: 05/24/22 10:29 Dose: 40 mg Documented By: YANELI Nicotine (Nicotine 21 Mg Patch.Td24) 21 mg TRANSDERMA DAILY [facility] Last Admin: 05/24/22 07:50 Dose: 21 mg Documented By: YANELI Nystatin (Nystatin Oral Susp 500,000 Unit/5 Ml Oral.Susp) 500,000 unit PO QID [facility]; Protocol Last Admin: 05/24/22 13:37 Dose: 500,000 unit Documented By: SHANNAN Olanzapine (Olanzapine 10 Mg Tablet) 10 mg PO BEDTIME [facility] Last Admin: 05/23/22 20:53 Dose: 10 mg Documented By: PAVITHRA Pharmacy Consult (Consult Rx Perform Med Rec) 1 each MISCELLANE ONCE PRN PRN Reason: Consult order Pharmacy Consult (Consult Rx Vancomycin Dosing) 1 each MISCELLANE DAILY PRN PRN Reason: Consult order Polyethylene Glycol (Polyethylene Glycol 3350 17 Gm Powd.Pack) 17 gm PO DAILY [facility] Last Admin: 05/24/22 07:50 Dose: 17 gm Documented By: YANELI Senna (Sennosides 8.6 Mg Tablet) 17.2 mg PO BEDTIME PRN PRN Reason: Constipation Last Admin: 05/19/22 02:45 Dose: 17.2 mg Documented By: WESTLEY Sodium Chloride (0.9 % Sodium Chloride Flush 3 Ml Syringe) 3 ml IVFLUSH QSHIFT [facility] Last Admin: 05/24/22 07:50 Dose: 3 ml Documented By: YANELI Tamsulosin HCl (Tamsulosin Hcl 0.4 Mg Capsule) 0.4 mg PO DAILY [facility] Last Admin: 05/24/22 07:49 Dose: 0.4 mg Documented By: YANELI Tiotropium [place] (Tiotropium [place] 18 Mcg Cap.W.Dev) 1 puff INHALE RDAILY [facility] Last Admin: 05/24/22 07:37 Dose: 1 puff Documented By: CHASE Trazodone HCl (Trazodone Hcl 100 Mg Tablet) 100 mg PO BEDTIME PRN PRN Reason: Insomnia Last Admin: 05/19/22 02:45 Dose: 100 mg Documented By: WESTLEY Labs CBC & Chem 7: 05/23/22 05:29 05/23/22 05:29 Labs: Laboratory Results - last 24 hr 05/23/22 15:03 Random Vancomycin 9.2 L Assessment and Plan (1) Pneumonia: Status: Acute [facility] hospital d#12 66yo M with COPD, chronic hypoxic resp failure on 5L O2, hx PTX, tobacco dependence, schizophrenia p/w dyspnea + cough, admited for PNA, constipation + fecal impaction # acute/chronic hypoxic resp failure due to COPD exac + PNA - completed 8d of azithro + ceftriaxone, now on pip/isaac + vanco d#4. MRSA neg - > will d/c vanco - continue steroids- continue to wean - continue triple controller therapy - continue nebs + ICS/LABA - RVP neg, trend PCT - no PE on CTA 05/17 # leukocytosis - likely due to steroids, outpt heme/onc if remains elevated, refused blood draw today # sinus tachycardia - intermittent sinus tach + frequent PACs - attributed to COPD exac, hypoxia, nicotine withdrawal, anxiety; TSH normal, pseudoephedrine discontinued, Tn-I normal, no PE on CTE # oral thrush - due to steroids , on nystatin d#01/08 # hypoK - repleted # constipation - s/p manual disimpaction, continue stool softeners # BPH - tamulosin # AUD - acamprosate # schizophrenia - continue lorazepam, buspirone, olanzapine # VTE ppx: LMWH # dispo: anticipate STR In my clinical judgment, the patient requires continued hospitalization for the following reasons: IV ABX patient healthcare proxy is his sister Ana Paige , [phone] Quality Stroke Does the patient have a stroke diagnosis?: No VTE Prior VTE?: No VTE Risk Level:: Medical - moderate - high VTE Device Contraindication: Treatment Not Indicated VTE Drug Contraindication: N/A - Med Ordered
[2022-05-24 15:31] LABS: VBG Base Excess 3.2 mmol/L; VBG HCO3 25 mmol/L (22-26); VBG pCO2 31 mmHg; VBG pH 7.52 (7.32-7.43); VBG pO2 73 mmHg
[2022-05-24 15:31] LABS: Venous Blood Gas Refer to POC result
[2022-05-24] MEDS: oxyCODONE HCl Immed Release 5 MG TABLET PO ×2 (15:42→20:52)
[2022-05-24 15:50] LABS: Anion Gap 18 (12-20); Blood Urea Nitrogen 13 mg/dL (9-16); Calcium 8.1 mg/dL (8.4-10.2); Carbon Dioxide 24 mmol/L (22-29); Chloride 94 mmol/L (96-108); Creatinine Clr Calc Pharmacy 103.9; Estimated Glomerular Filt Rate > 60; Glucose Random 338 mg/dL (60-115); Potassium 4.6 mmol/L (3.3-5.1); Sodium 131 mmol/L (135-145)
[2022-05-24] MEDS: OLANZapine 10 MG TABLET PO (20:50)
[2022-05-24] MEDS: traZODone HCL 100 MG TABLET PO (20:51)
[2022-05-25] MEDS: methylPREDNISolone Sod Succ 40 MG/ML VIAL IVPUSH ×2 (03:11→11:53)
[2022-05-25] MEDS: Piperacillin Sodium/Tazobactam 3.375 GM in 0.9 % Sodium Chloride 50 ML IV ×2 (03:11→08:50)
[2022-05-25 03:12] VITALS: BP 178/73; PULSE 95; RESP 12; TEMP 36.6; O2SAT 100
[2022-05-25 07:02] VITALS: BP 186/80; PULSE 100; RESP 20; TEMP 36.9; O2SAT 94
[2022-05-25 07:16] LABS: Hematocrit 35.8 % (42.0-52.0); Mean Corpuscular HGB Conc 33.5 g/dl (31.0-36.0); Mean Corpuscular Volume 89.5 fL (80.0-98.0); Mean Platelet Volume 9.1 fL (9.4-12.4); Platelet Count 534 X10*3/uL (160-400); Red Cell Distribution Width 13.8 % (11.0-16.0); White Blood Count 22.4 X10*3/uL (4.8-10.8)
[2022-05-25 08:01] LABS: Creatinine Clr Calc Pharmacy 121.8; Estimated Glomerular Filt Rate > 60
[2022-05-25] MEDS: Nicotine 21 MG PATCH.TD24 TRANSDERMA (08:51)
[2022-05-25] MEDS: Nystatin Oral Susp 500,000 UNIT/5 ML ORAL.SUSP 500000 UNIT PO ×2 (08:52→13:16)
[2022-05-25] MEDS: Acamprosate Calcium 333 MG TABLET.DR PO (08:52)
[2022-05-25] MEDS: Lidocaine 4 % Patch ADH..PATCH 1 PATCH TRANSDERMA (08:52)
[2022-05-25] MEDS: Tamsulosin HCL 0.4 MG CAPSULE PO (08:52)
[2022-05-25] MEDS: busPIRone HCl 5 MG TABLET 7.5 MG PO (08:53)
[2022-05-25] MEDS: Gabapentin 100 MG CAPSULE PO (08:53)
[2022-05-25] MEDS: Folic Acid 1 MG TABLET PO (08:53)
[2022-05-25] MEDS: guaiFENesin DM 200/20/10 ML 10 ML SYRUP PO ×2 (08:53→13:16)
[2022-05-25] MEDS: 0.9 % Sodium Chloride Flush 3 ML SYRINGE IVFLUSH (08:57)
[2022-05-25 09:07] LABS: Procalcitonin 0.06 ng/mL
--- NOTE | 2022-05-25 11:07 | PM.DS ---
DS: Providers Provider Date of Service: 05/25/22 Date of admission: 05/13/22 22:49 Date of discharge: 05/25/22 Primary care physician: APRYL Bah DS: Diagnosis Discharge Diagnosis (1) Pneumonia: Status: Acute (2) COPD exacerbation: Status: Acute (3) Fecal impaction: Status: Acute (4) Leukocytosis: Status: Acute (5) Acute and chronic respiratory failure with hypoxia: Status: Acute (6) Leukocytosis: Status: Acute (7) Pulmonary nodules: Status: Acute DS: Summary Hospital Course Hospital Course: from admission H+P from hospitalist Gavin Devijessicafarhad, 05/13/22: 66-year-old male with a past medical history of COPD, chronic respiratory failure on 5 L of supplemental oxygen, history of pneumothorax, schizophrenia, tobacco dependence presented to the hospital today with a chief complaint of constipation.? Patient reports that for the past 2-3 days he has been having difficulty having bowel movement.? Also having pain in the abdomen.? Denies any nausea or vomiting.? Reports is also having cough with coli sputum production for the past 2 days.? Denies any fevers and chills.? Denies any sick contacts.? Denies any nausea vomiting.? Denies any urinary symptoms.? Denies any chest pain or palpitations. Mentions that he uses 5 L of home oxygen at home.? Review of all other systems is negative except mentioned above ER course: Per ER team patient noted to have fecal impaction, manual disimpaction was done.? On labs noted to have elevated leukocytosis, chest x-ray showed upper lobe pneumonia.? Patient was given antibiotics.? Admitted to the hospital for further management. This 66yo M with COPD, chronic hypoxic resp failure on 5L O2, hx PTX, tobacco dependence, and schizophrenia presented with dyspnea + cough and was admitted for pneumonia and COPD exacerbation. He also had constipation with fecal impaction. He was treated with 8 days of azithromycin plus ceftriaxone, then 4 days of piperacillin/tazobactam plus vancomycin. Blood cultures were negative. Respiratory virus PCR panel was negative. CTA was negative for PE; he did have two solid pulmonary nodules in the right lung measuring up to [address] repeat CT in 1 year is recommended. He was also treated with high-dose steroids. His respiratory status gradually improved and his oxygenation increased to the point where he was maintained on 3L O2 via nasal cannula. He had marked leukocytosis attributed to steroid effect; CBC should be repeated in 1 month to ensure it resolves. He developed thrush due to steroids and was placed on nystatin. Constipation resolved after manual disimpaction and bowel regimen. He was discharged to [facility] for short-term rehabilitation with a 12-day steroid taper and 3 days of amoxicillin-clavulanate. He was also referred for outpatient Pulmonology consultation. Time Spent with Patient Time attestation: Total time spent providing and/or coordinating discharge services: 35 Discharge coordination time: Greater than 30 minutes Quality: Safe Use of Opioids Does Pt have an Active Cancer Diagnosis on the Problem List?: No Quality: Stroke Does the patient have a stroke diagnosis?: No Physical Exam Vital Signs: Vital Signs: Last Vital Signs Temp 98.4 F 05/25/22 07:02 Pulse 100 05/25/22 07:02 Resp 20 05/25/22 07:02 BP 186/80 H 05/25/22 07:02 Pulse Ox 94 05/25/22 07:02 O2 Del Method 05/25/22 07:02 O2 Flow Rate 4 05/25/22 07:02 Oxygen Flow Rate 5 05/13/22 18:31 BMI result Body Mass Index 23.6 Gen: NAD HEENT: sclera anicteric, moist mucus membranes Neck: supple Lungs: no adventitious sounds, no accessory muscle use Heart: regular rate and rhythm, no murmurs Abd: soft, non-tender, non-distended Ext: no edema Skin: warm/well-perfused Neuro: alert and oriented x3, no focal findings Psych: restricted affect DS: Data Data Completed and Pending Completed studies during hospitalization [Text1]: Laboratory Results WBC 22.4 X10*3/uL (4.8-10.8) H 05/25/22 06:28 RBC 4.00 X10*6/uL (4.60-5.80) L 05/25/22 06:28 Hgb 12.0 g/dl (14.0-18.0) L 05/25/22 06:28 Hct 35.8 % (42.0-52.0) L 05/25/22 06:28 MCV 89.5 fL (80.0-98.0) 05/25/22 06:28 MCH 30.0 pg (27.0-33.0) 05/25/22 06:28 MCHC 33.5 g/dl (31.0-36.0) 05/25/22 06:28 RDW 13.8 % (11.0-16.0) 05/25/22 06:28 Plt Count 534 X10*3/uL (160-400) H 05/25/22 06:28 MPV 9.1 fL (9.4-12.4) L 05/25/22 06:28 Immature Gran % (Auto) 0.9 % (0.0-0.4) H 05/13/22 21:10 Neut % (Auto) 88.7 % (45-73) H 05/13/22 21:10 Lymph % (Auto) 5.3 % (20-40) L 05/13/22 21:10 [place] % (Auto) 4.8 % (2-11) 05/13/22 21:10 Eos % (Auto) 0.0 % (0-4) 05/13/22 21:10 Baso % (Auto) 0.3 % (0-2) 05/13/22 21:10 Lymph # (Auto) 1.6 X10*3/uL (1.2-4.9) 05/13/22 21:10 [place] # (Auto) 1.5 X10*3/uL (0.1-1.2) H 05/13/22 21:10 Eos # (Auto) 0.0 X10*3/uL (0.0-0.4) 05/13/22 21:10 Baso # (Auto) 0.1 X10*3/uL (0.0-0.2) 05/13/22 21:10 Abs Immat Gran (auto) 0.27 X10*3/uL (0.00-0.03) H 05/13/22 21:10 Absolute Neuts (auto) 26.6 x10*3/uL (2.0-8.3) H 05/13/22 21:10 Absolute Nucleated RBC 0.000 X10*3/uL (0.0-0.012) 05/25/22 06:28 Nucleated RBC % (auto) 0.0 /100WBC (0.0-0.2) 05/25/22 06:28 Smear Tech's Comments VERIFIED 05/13/22 21:10 Smear Path Review 05/21/22 14:58 O2 Saturation 96.0 % 05/21/22 09:50 ABG pH at Pt Temp 7.50 (7.35-7.45) H 05/21/22 09:50 ABG pCO2 at Pt Temp 32 mmHg (32-45) 05/21/22 09:50 ABG pO2 at Pt Temp 79 mmHg (83-108) L 05/21/22 09:50 ABG HCO3 25 mmol/L (22-26) 05/21/22 09:50 ABG Base Excess (Actual) 3.3 mmol/L 05/21/22 09:50 VBG pH 7.52 (7.32-7.43) H 05/24/22 15:26 VBG pCO2 31 mmHg 05/24/22 15:26 VBG pO2 73 mmHg 05/24/22 15:26 VBG HCO3 25 mmol/L (22-26) 05/24/22 15:26 VBG O2 Saturation 94.0 % 05/24/22 15:26 VBG Base Excess 3.2 mmol/L 05/24/22 15:26 Sodium 131 mmol/L (135-145) L 05/24/22 15:21 Potassium 4.6 mmol/L (3.3-5.1) 05/24/22 15:21 Chloride 94 mmol/L (96-108) L 05/24/22 15:21 Carbon Dioxide 24 mmol/L (22-29) 05/24/22 15:21 Anion Gap 18 (12-20) 05/24/22 15:21 BUN 13 mg/dL (9-16) 05/24/22 15:21 Creatinine 0.58 mg/dL (0.5-1.4) 05/25/22 06:28 Estim Creat Clear Calc 121.8 05/25/22 06:28 Estimated GFR > 60 05/25/22 06:28 Random Glucose 338 mg/dL (60-115) H D 05/24/22 15:21 Lactic Acid 2.2 mmol/L (0.5-2.0) H* 05/13/22 21:08 Calcium 8.1 mg/dL (8.4-10.2) L 05/24/22 15:21 Magnesium 1.8 mg/dL (1.6-2.6) 05/21/22 14:58 Total Bilirubin 1.2 mg/dL (0.0-1.0) H 05/13/22 21:10 AST 20 U/L (5-37) D 05/13/22 21:10 ALT 23 U/L (0-40) 05/13/22 21:10 Alkaline Phosphatase 85 U/L (39-117) 05/13/22 21:10 Troponin I High Sens 4.4 ng/L (<3.5-35.0) 05/17/22 11:41 B-Natriuretic Peptide 42 pg/mL (<100) 05/13/22 21:08 Total Protein 6.3 g/dL (6.5-8.0) L D 05/13/22 21:10 Albumin 3.3 g/dL (3.5-5.0) L 05/13/22 21:10 Procalcitonin 0.06 ng/mL 05/25/22 06:28 TSH 0.70 uIU/mL (0.32-4.0) 05/17/22 11:41 Urine Color Dark Yellow 05/17/22 12:29 Urine Appearance Clear 05/17/22 12:29 Urine pH 6.5 (5.0-9.0) 05/17/22 12:29 Ur Specific [place] 1.020 (1.005-1.025) 05/17/22 12:29 Urine Protein 30 (1+) mg/dL (Neg-Trace) H 05/17/22 12:29 Urine Glucose (UA) Negative mg/dL (Negative) 05/17/22 12:29 Urine Ketones Trace mg/dL (Negative) 05/17/22 12:29 Urine Blood Negative (Negative) 05/17/22 12:29 Urine Nitrite Negative (Negative) 05/17/22 12:29 Ur Leukocyte Esterase Trace (Negative) H 05/17/22 12:29 Urine RBC 0-2 /HPF (0-2) 05/17/22 12:29 Urine WBC 0-5 /HPF (0-5) 05/17/22 12:29 Ur Squamous Epith Cells 3-5 /HPF (0-2) 05/17/22 12:29 Urine Bacteria None Seen (None Seen) 05/17/22 12:29 Hyaline Casts 0-2 /LPF (0-2) 05/17/22 12:29 Nasal Screen MRSA (PCR) NEGATIVE (Negative) 05/23/22 10:40 Nasal S. aureus Screen NEGATIVE (Negative) 05/23/22 10:40 Nasal MRSA/S.aureus Interp SEE NOTE 05/23/22 10:40 Random Vancomycin 9.2 mcg/mL (15-20) L 05/23/22 15:03 Respiratory Panel [place] See Note 05/23/22 11:46 Adenovirus (Rapid PCR) Not Detected (Not Detect.) 05/23/22 11:46 B.pert (TEM-PCR) Not Detected (Not Detect.) 05/23/22 11:46 B.parapertussis DNA PCR Not Detected (Not Detect.) 05/23/22 11:46 C. pneumoniae DNA (PCR) Not Detected (Not Detect.) 05/23/22 11:46 Coronavirus OC43 (PCR) Not Detected (Not Detect.) 05/23/22 11:46 Coronavirus HKU1 (PCR) Not Detected (Not Detect.) 05/23/22 11:46 Coronavirus 229E (PCR) Not Detected (Not Detect.) 05/23/22 11:46 COVID-19 (SLOAN) Negative (Negative) 05/13/22 21:09 COVID-19 Clin Com See Note 05/13/22 21:09 Coronavirus NL63 (PCR) Not Detected (Not Detect.) 05/23/22 11:46 Human Metapneumovir PCR Not Detected (Not Detect.) 05/23/22 11:46 Influenza A (RT-PCR) Not Detected (Not Detect.) 05/23/22 11:46 Influenza B (RT-PCR) Not Detected (Not Detect.) 05/23/22 11:46 M. pneumoniae (PCR) Not Detected (Not Detect.) 05/23/22 11:46 Parainfluenza 1 (PCR) Not Detected (Not Detect.) 05/23/22 11:46 Parainfluenza 2 (PCR) Not Detected (Not Detect.) 05/23/22 11:46 Parainfluenza 3 (PCR) Not Detected (Not Detect.) 05/23/22 11:46 Parainfluenza 4 (PCR) Not Detected (Not Detect.) 05/23/22 11:46 RSV (PCR) Not Detected (Not Detect.) 05/23/22 11:46 Entero/Rhino (PCR) Not Detected (Not Detect.) 05/23/22 11:46 SARS-CoV-2 RNA (RT-PCR) Not Detected (Not Detect.) 05/23/22 11:46 Impressions KUB X-Ray 05/13/22 21:40 IMPRESSION: Findings suggest possible rectal fecal impaction. No obstruction is seen, and there is no free intraperitoneal air. Abdomen/Pelvis CT 05/13/22 22:11 IMPRESSION: Limited from noncontrast intravenous or oral contrast at study. Given this no acute finding is felt to be present. The bowel pattern overall is nonobstructing. Once again moderate rectosigmoid stool. Fleischner guidelines were followed. Chest CTA 05/17/22 18:27 IMPRESSION: 1. No central or segmental pulmonary emboli. 2. Left upper lobe pneumonia. Radiographic follow-up is advised to verify resolution. 3. Severe centrilobular pulmonary emphysema. Two solid pulmonary nodules in the right lung measuring up to 4 mm in diameter. According to the UPDATED 2017 Fleischner Society recommendations, the advised follow-up imaging for solid nodules < 6 mm is: HIGH RISK PATIENT: Optional CT at 12 months. . Chest X-Ray 05/21/22 10:11 IMPRESSION: Worsening left upper lobe pneumonia. Emphysema. Discharge Plan Discharge Patient Disposition: [facility] Discharge Diagnosis: COPD exacerbation, pneumonia, thrush, leukocytosis, pulmonary nodules Referrals: Gabby Donohue MD [Physician] - 2 Weeks All Nicholas PA [Primary Care Provider] - 05/27/22 2:30 pm (appointment scheduled with pcp, call if you need to reschedule ) Discharge Medications: New nystatin 100,000 unit/mL Suspension 500,000 unit PO QID Qty: 240 0RF Protocol: Apply to: Apply to: mouth levalbuterol HCl [Xopenex Concentrate] 1.25 mg/0.5 mL Solution For Nebulization 1.25 mg inhalation Q2H PRN (Reason: shortness of breath/wheeze) Qty: 30 0RF ipratropium bromide 0.02 % Solution 0.5 mg inhalation Q6H PRN (Reason: shortness of breath or wheezing) Qty: 150 0RF nicotine 21 mg/24 hr Patch 24 Hour 21 mg transdermal DAILY Qty: 28 0RF polyethylene glycol 3350 17 gram Powder In Packet 17 g PO DAILY Qty: 30 0RF lidocaine [Lidocaine Pain Relief] 4 % Adhesive Patch,Medicated 1 patch transdermal DAILY PRN (Reason: rib pain) Qty: 30 0RF Protocol: Apply to: Apply to: ribs amoxicillin-pot clavulanate 875-125 mg tablet 1 tab PO BID Qty: 6 0RF Continued guaifenesin 600 mg Tablet Extended Release 12hr 600 mg PO BID olanzapine 10 mg Tablet 10 mg PO BEDTIME psyllium Powder 1 tbsp PO DAILY Rx Instructions: mix into at least 8 oz of water or juice before administering tamsulosin 0.4 mg Capsule 0.4 mg PO DAILY trazodone 100 mg Tablet 100 mg PO BEDTIME PRN (Reason: Insomnia) benzonatate 100 mg Capsule 100 mg PO TID PRN (Reason: Cough) fluticasone propion-salmeterol [Advair Diskus] 500-50 mcg/dose Blister With Device 1 inh INHALATION BID docusate sodium 100 mg Capsule 100 mg PO DAILY PRN (Reason: Constipation) buspirone 7.5 mg Tablet 7.5 mg PO BID folic acid 1 mg Tablet 1 mg PO DAILY gabapentin 100 mg Capsule 100 mg PO BID hydroxyzine HCl 10 mg Tablet 10 mg PO Q24H PRN (Reason: Anxiety) acamprosate 333 mg Tablet,Delayed Release (Dr/Ec) 333 mg PO TID tiotropium bromide 2.5 mcg/actuation Mist 2 puff INHALATION DAILY megestrol 400 mg/10 mL (10 mL) Suspension 200 mg PO BID Discontinued pseudoephedrine HCl [Sudafed] 30 mg Tablet 30 mg PO BID Rx Instructions: DNExceed 4 doses/24h albuterol sulfate 90 mcg/actuation Hfa Aerosol Inhaler 1 puff INHALATION Q4-6H PRN (Reason: Wheezing) Discharge Orders: Discharge Order (Routine); Ordered 05/25/22 Ordered By: Kwabena Ricks Diet: Low salt diet Activity on Discharge: As tolerated Stand Alone Forms: Patient Portal Discharge page Other Ambulatory Orders: Complete Blood Count Auto Diff (Routine) Timeframe: 1 Month Facility: [facility] - Location: Laboratory Ordered By: Jaehyun Rambo Care Plan Goals: lung health Health Concerns: COPD exacerbation, pneumonia, thrush, leukocytosis, pulmonary nodules Plan of Treatment: take amoxicillin-clavulanate 875-125 mg twice daily for 3 days take prednisone taper as follows: 40 mg daily x 3 days 30 mg daily x 3 days 20 mg daily x 3 days 10 mg daily x 3 days take nystatin 4x a day while on prednisone continue controller inhalers [Advair, tiotropium] use ipratropium and Xopenex for rescue quit smoking; use nicotine patch avoid constipation; add Miralax to bowel regimen continue oxygen 3-4L via nasal cannula repeat CBCd in [address] of the chest in 1 year Please follow up with your primary care doctor after discharge from SNF. Please see head bookkeeper in 2-3 weeks (Referral placed). Return to the hospital if you experience recurrent or worsening symptoms. Assessment: See Discharge Summary.
--- NOTE | 2022-05-25 11:36 | MHC.CM.PN ---
pt to be dcd today to [facility] sister trish almaraz notified of dc
[2022-05-26 17:07] LABS: Strep Pneumo Ag urine Not Detected (Not Detected)
[2022-05-30 17:22] LABS: Legionella Ag Urine Not Detected (Not Detected)
== END 2022-05-25 14:45 | disposition skilled nursing facility (03) | DRG 193 ==
LOC: HO.ED 21:00 → HO.EDOVER 23:20 → HO.IMC 05-16 06:00
PROVIDERS: Hospitalist; Internal Medicine; Admitting Provider Hospitalist; Emergency Provider Internal Medicine; PCP Physician Assistant Medical; Visit Provider Family Medicine
DX: J18.9 Pneumonia, unspecified organism (principal); J96.21 Acute and chronic respiratory failure with hypoxia; B37.0 Candidal stomatitis; F17.293 Nicotine dependence, other tobacco product, with withdrawal; J43.9 Emphysema, unspecified; E86.0 Dehydration; F20.9 Schizophrenia, unspecified; N40.0 Benign prostatic hyperplasia without lower urinary tract symptoms; D72.829 Elevated white blood cell count, unspecified; K56.41 Fecal impaction; R00.0 Tachycardia, unspecified; E87.6 Hypokalemia; R91.8 Other nonspecific abnormal finding of lung field; T44.995A Adverse effect of other drug primarily affecting the autonomic nervous system, initial encounter; F41.9 Anxiety disorder, unspecified; Z71.6 Tobacco abuse counseling; Z99.81 Dependence on supplemental oxygen; Z20.822 Contact with and (suspected) exposure to COVID-19; Z87.891 Personal history of nicotine dependence; Z79.51 Long term (current) use of inhaled steroids; Z79.899 Other long term (current) drug therapy
CPT/HCPCS: 36415; 36600; 71045; 71275; 74018; 74176; 80048; 80053; 80202; 81001; 82565; 82803; 83605; 83735; 83880; 84145; 84443; 84484; 85025; 85027; 87040; 87449; 87633; 87635; 87640; 87641; 87899; 92610; 93005; 94640; 94664; 96365; 99285; J0696; J1650; J2250; J2270; J2543; J2920; J2930; J3370; Q9967

== ENCOUNTER 2022-06-10 22:01 | Emergency (ER) | payer OTHER, SELFPAY ==
[2022-06-10] VITALS (9 sets, daily range): BP systolic 137–174; BP diastolic 56–100; PULSE 122–147; RESP 26–40; TEMP 36.8–38.2; O2SAT 90–98
--- NOTE | ~2022-06-10 | XR_ITS ---
EXAMINATION: XR CHEST CLINICAL INFORMATION: Dyspnea. COMPARISON: Chest x-ray 05/21/2022. CT chest 05/17/2022 TECHNIQUE: Frontal portable view of the chest was obtained. 11:10 PM FINDINGS: Emphysematous hyperlucency of lungs. Persistent but mildly improved airspace opacity in the left upper lobe compared to prior study 05/21/2022. There is however a area of increased dense opacity in the most peripheral left upper lobe in this segment. Diffuse reticular lung markings in the mid lower left lung are slightly worse however. The right lung is normally aerated. Chronic elevation of left diaphragm and chronic blunting left costophrenic angle. XR/XR chest 1V IMPRESSION: Some mild improvement in airspace opacity in the left upper lobe density compared to prior study 05/21/2022. There is increasing consolidation peripherally however. Increasing lung markings in the mid lower left lung compared to the prior study.
--- NOTE | 2022-06-10 22:09 | ECG_ITS ---
Test Reason : SOB Blood Pressure : / mmHG Vent. Rate : 144 BPM Atrial Rate : 144 BPM P-R Int : 128 ms QRS Dur : 068 ms QT Int : 278 ms P-R-T Axes : 091 069 094 degrees QTc Int : 430 ms Sinus tachycardia with Sinus Arrhythmia and occ Premature atrial complexes Nonspecific ST abnormality Abnormal ECG When compared with ECG of 17-MAY-2022 11:14, Premature supraventricular complexes are no longer Present Referred By: Ekaterina Benedict Electronically Signed By:PATTY GILL MD
--- NOTE | 2022-06-10 22:12 | ED.SOB ---
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 Had a bad day today at [facility] but then tonight acute onset shortness of breath - sats in 80s. Required CPAP with EMS and duoneb. On chronic prednisone. Patient cannot provide a history. MD elicited complaint: shortness of breath Pertinent past history: COPD Onset (ago): day(s) (1 but much worse just prior to arrival ) Context: recent illness Timing: progressively worsening Severity: severe Exacerbating factors: exertion and coughing Relieving factors: oxygen, bronchodilators and upright position Known history of: COPD Associated symptoms: wheezing and sputum production Treatment prior to arrival: oxygen, bronchodilator and NIPPV Related Data Home Medications Medication Instructions Recorded Confirmed acamprosate 333 mg tablet,delayed 333 mg PO TID 01/25/22 06/10/22 release benzonatate 100 mg capsule 100 mg PO TID PRN Cough 01/25/22 06/10/22 buspirone 7.5 mg tablet 7.5 mg PO BID 01/25/22 06/10/22 docusate sodium 100 mg capsule 100 mg PO DAILY PRN Constipation 01/25/22 06/10/22 fluticasone 500 mcg-salmeterol 50 1 inh inhalation BID 01/25/22 06/10/22 mcg/dose blistr powdr for inhalation (Advair Diskus) folic acid 1 mg tablet 1 mg PO DAILY 01/25/22 06/10/22 gabapentin 100 mg capsule 100 mg PO BID 01/25/22 06/10/22 hydroxyzine HCl 10 mg tablet 10 mg PO Q24H PRN Anxiety 01/25/22 06/10/22 megestrol 400 mg/10 mL (10 mL) 200 mg PO BID 01/25/22 06/10/22 oral suspension olanzapine 10 mg tablet 10 mg PO BEDTIME 01/25/22 06/10/22 psyllium 1 tbsp PO DAILY 01/25/22 06/10/22 tamsulosin 0.4 mg capsule 0.4 mg PO DAILY 01/25/22 06/10/22 tiotropium bromide 2.5 2 puff inhalation DAILY 01/25/22 06/10/22 mcg/actuation mist for inhalation trazodone 100 mg tablet 100 mg PO BEDTIME PRN Insomnia 01/25/22 06/10/22 guaifenesin 600 mg tablet, 600 mg PO BID 05/13/22 06/10/22 extended release 12 hr Previous Rx's Medication Instructions Recorded amoxicillin 875 mg-potassium 1 tab PO BID #6 tabs 05/25/22 clavulanate 125 mg tablet ipratropium bromide 0.02 % 0.5 mg (2.5 mL) inhalation Q6H PRN 05/25/22 solution for inhalation shortness of breath or wheezing #150 mL levalbuterol HCl 1.25 mg/0.5 mL 1.25 mg (0.5 mL) inhalation Q2H 05/25/22 solution for nebulization (Xopenex PRN shortness of breath/wheeze #30 Concentrate) ea lidocaine 4 % topical patch 1 patch transdermal DAILY PRN rib 05/25/22 (Lidocaine Pain Relief) pain #30 ea nicotine 21 mg/24 hr daily 21 mg transdermal DAILY #28 ea 05/25/22 transdermal patch nystatin 100,000 unit/mL oral 500,000 unit PO QID #240 mL 05/25/22 suspension polyethylene glycol 3350 17 gram 17 g PO DAILY #30 ea 05/25/22 oral powder packet prednisone 10 mg tablet See Rx Instructions .Route 05/25/22 .COMPLEX #30 tabs Allergies Allergy/AdvReac Type Severity Reaction Status Date / Time tree and shrub pollen Allergy Mild Rash Verified 06/10/22 22:47 Review of Systems Review of Systems: ROS unable to be obtained due to respiratory distress [facility] Past Medical History Source: old records reviewed Medical History Acidosis, lactic COPD (chronic obstructive pulmonary disease) COPD (chronic obstructive pulmonary disease) COPD (chronic obstructive pulmonary disease) Emphysema lung Leukocytosis Pneumonia Pneumothorax Right inguinal hernia Schizophrenia Smoker in home Umbilical hernia Surgical History No pertinent past surgical history Family History Family History Father CAD (coronary artery disease) Social History Social History Household Members: Other Household Members Other:: roommate Housing: Other Housing Other:: hotel Do you presently have visiting nurse or other home services: Yes Unable to assess alcohol history related to: Unknown Alcohol intake: current Alcohol intake frequency: a few times a month Alcohol type: beer Patient Tobacco Use Status: Former Tobacco user Tobacco use type: Cigarette Cigarette Packs Per Day: 1 Cigarettes Per Day: 20.0 e-Cigarette/Vaping Use: Currently Using Second Hand Smoke Exposure: No Advance Directives Date on File: 03/22/21 service: Yes Current occupational status: 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 Oriented X2. Moderate acute distress. Eyes: Pupils equal, round and reactive to light. ENT: Pharynx normal. Neck: Normal inspection. Neck supple. CVS: tachycardic heart rate and rhythm. Pulses normal. Respiratory: Moderate respiratory distress - increased wob, retracting, tachypnea, agitated. Breath sounds very diminished throughout - the patient has a junky coarse cough Abdomen: Soft and nontender. Skin: Skin warm and dry. Normal skin color. Normal skin turgor. Extremities: No lower extremity edema. No calf ttp Neuro: Oriented X 2. No motor deficit. No sensory deficit. Course Course Course Narrative: schizophrenic in resp distress, IM zyprexa for agitation ordered on arrival cannot tolerate mask hx of severe anxiety and schizophrenia - IV versed ordered, not tolerating his mask. call to HCP message left call to SNF they state they do not have his code status on file if versed and zyprexa do not work will intubate the patient HCP - Kim states that he is a FULL CODE at this time if necessary proceed with intubation. not retaining on VBG off Bipap now 1105pm agitated at his baseline, yelling at staff he is improving. will continue to monitor. DDIMER elevated CTA ordered signed out to Dr. Valdez pending repeat labs refusing CTA at this time I did discuss with his HCP - she is aware that he is refusing she agrees with his decisions, aware it was for pneumonia/blood clots MDM - SOB/Dyspnea MDM Narrative Medical decision making narrative: 66 yo male with PMH of schizophrenia, COPD, chronic resp failure on 5L NC, heavy long-term smoking has been using more O2 recently at SNF brought to ED in resp distress - patient will need anxiolytics and neb treatments, IV steroids, IV magnesium, cultures, lactic acid, EKG - patient with junky coarse cough along with temp of 100 - new consolidation noted - empiric cefepime and vancomycin ordered. Planned admit. Lab Data Result diagrams: 06/10/22 22:27 06/10/22 22:15 Labs: Lab Results 06/10/22 06/10/22 06/10/22 Range/Units 22:15 22:15 22:15 WBC (4.8-10.8) X10*3/uL RBC (4.60-5.80) X10*6/uL Hgb (14.0-18.0) g/dl Hct (42.0-52.0) % MCV (80.0-98.0) fL MCH (27.0-33.0) pg MCHC (31.0-36.0) g/dl RDW (11.0-16.0) % Plt Count (160-400) X10*3/uL MPV (9.4-12.4) fL Immature Gran % (Auto) (0.0-0.4) % Neut % (Auto) (45-73) % Lymph % (Auto) (20-40) % [place] % (Auto) (2-11) % Eos % (Auto) (0-4) % Baso % (Auto) (0-2) % Lymph # (Auto) (1.2-4.9) X10*3/uL [place] # (Auto) (0.1-1.2) X10*3/uL Eos # (Auto) (0.0-0.4) X10*3/uL Baso # (Auto) (0.0-0.2) X10*3/uL Abs Immat Gran (auto) (0.00-0.03) X10*3/uL Absolute Neuts (auto) (2.0-8.3) x10*3/uL Absolute Nucleated RBC (0.0-0.012) X10*3/uL Nucleated RBC % (auto) (0.0-0.2) /100WBC Smear Tech's Comments PT (10.0-13.1) SEC INR (0.9-1.1) APTT 24.6 L D (26.0-36.4) SEC D-Dimer High Sensitivty NG/ML VBG pH (7.32-7.43) VBG pCO2 mmHg VBG pO2 mmHg VBG HCO3 (22-26) mmol/L VBG O2 Saturation % VBG Base Excess mmol/L Sodium 139 (135-145) mmol/L Potassium 4.4 (3.3-5.1) mmol/L Chloride 105 (96-108) mmol/L Carbon Dioxide 20 L (22-29) mmol/L Anion Gap 18 (12-20) BUN 11 (9-16) mg/dL Creatinine 0.64 (0.5-1.4) mg/dL Estim Creat Clear Calc TNP Estimated GFR > 60 Random Glucose 221 H (60-115) mg/dL Lactic Acid 2.3 H* (0.5-2.0) mmol/L Calcium 8.2 L (8.4-10.2) mg/dL Magnesium 1.9 (1.6-2.6) mg/dL Total Bilirubin 0.4 (0.0-1.0) mg/dL Direct Bilirubin < 0.2 (0.0-0.5) mg/dL AST 29 D (5-37) U/L ALT 32 (0-40) U/L Alkaline Phosphatase 97 (39-117) U/L Troponin I High Sens (<3.5-35.0) ng/L B-Natriuretic Peptide (<100) pg/mL Total Protein 5.9 L (6.5-8.0) g/dL Albumin 3.0 L (3.5-5.0) g/dL Lipase 18 (8-78) U/L Procalcitonin ng/mL COVID-19 ([facility]) (Negative) COVID-19 Clin Com 10/06/10/22 06/10/22 Range/Units 22:15 22:20 22:27 WBC 24.2 H (4.8-10.8) X10*3/uL RBC 3.95 L (4.60-5.80) X10*6/uL Hgb 11.7 L (14.0-18.0) g/dl Hct 36.3 L (42.0-52.0) % MCV 91.9 (80.0-98.0) fL MCH 29.6 (27.0-33.0) pg MCHC 32.2 (31.0-36.0) g/dl RDW 16.0 (11.0-16.0) % Plt Count 454 H (160-400) X10*3/uL MPV 9.4 (9.4-12.4) fL Immature Gran % (Auto) 3.9 H (0.0-0.4) % Neut % (Auto) 77.8 H (45-73) % Lymph % (Auto) 10.0 L (20-40) % [place] % (Auto) 7.6 (2-11) % Eos % (Auto) 0.2 (0-4) % Baso % (Auto) 0.5 (0-2) % Lymph # (Auto) 2.4 (1.2-4.9) X10*3/uL [place] # (Auto) 1.8 H (0.1-1.2) X10*3/uL Eos # (Auto) 0.1 (0.0-0.4) X10*3/uL Baso # (Auto) 0.1 (0.0-0.2) X10*3/uL Abs Immat Gran (auto) 0.94 H (0.00-0.03) X10*3/uL Absolute Neuts (auto) 18.8 H (2.0-8.3) x10*3/uL Absolute Nucleated RBC 0.000 (0.0-0.012) X10*3/uL Nucleated RBC % (auto) 0.0 (0.0-0.2) /100WBC Smear Tech's Comments VERIFIED PT (10.0-13.1) SEC INR (0.9-1.1) APTT (26.0-36.4) SEC D-Dimer High Sensitivty NG/ML VBG pH 7.34 (7.32-7.43) VBG pCO2 38 mmHg VBG pO2 95 mmHg VBG HCO3 21 L (22-26) mmol/L VBG O2 Saturation 97.0 % VBG Base Excess -4.1 mmol/L Sodium (135-145) mmol/L Potassium (3.3-5.1) mmol/L Chloride (96-108) mmol/L Carbon Dioxide (22-29) mmol/L Anion Gap (12-20) BUN (9-16) mg/dL Creatinine (0.5-1.4) mg/dL Estim Creat Clear Calc Estimated GFR Random Glucose (60-115) mg/dL Lactic Acid (0.5-2.0) mmol/L Calcium (8.4-10.2) mg/dL Magnesium (1.6-2.6) mg/dL Total Bilirubin (0.0-1.0) mg/dL Direct Bilirubin (0.0-0.5) mg/dL AST (5-37) U/L ALT (0-40) U/L Alkaline Phosphatase (39-117) U/L Troponin I High Sens (<3.5-35.0) ng/L B-Natriuretic Peptide 40 (<100) pg/mL Total Protein (6.5-8.0) g/dL Albumin (3.5-5.0) g/dL Lipase (8-78) U/L Procalcitonin ng/mL COVID-19 ([facility]) (Negative) COVID-19 Clin Com 06/10/22 06/10/22 06/10/22 Range/Units 22:27 22:27 22:27 WBC (4.8-10.8) X10*3/uL RBC (4.60-5.80) X10*6/uL Hgb (14.0-18.0) g/dl Hct (42.0-52.0) % MCV (80.0-98.0) fL MCH (27.0-33.0) pg MCHC (31.0-36.0) g/dl RDW (11.0-16.0) % Plt Count (160-400) X10*3/uL MPV (9.4-12.4) fL Immature Gran % (Auto) (0.0-0.4) % Neut % (Auto) (45-73) % Lymph % (Auto) (20-40) % [place] % (Auto) (2-11) % Eos % (Auto) (0-4) % Baso % (Auto) (0-2) % Lymph # (Auto) (1.2-4.9) X10*3/uL [place] # (Auto) (0.1-1.2) X10*3/uL Eos # (Auto) (0.0-0.4) X10*3/uL Baso # (Auto) (0.0-0.2) X10*3/uL Abs Immat Gran (auto) (0.00-0.03) X10*3/uL Absolute Neuts (auto) (2.0-8.3) x10*3/uL Absolute Nucleated RBC (0.0-0.012) X10*3/uL Nucleated RBC % (auto) (0.0-0.2) /100WBC Smear Tech's Comments PT 10.7 (10.0-13.1) SEC INR 0.9 (0.9-1.1) APTT (26.0-36.4) SEC D-Dimer High Sensitivty 675 NG/ML VBG pH (7.32-7.43) VBG pCO2 mmHg VBG pO2 mmHg VBG HCO3 (22-26) mmol/L VBG O2 Saturation % VBG Base Excess mmol/L Sodium (135-145) mmol/L Potassium (3.3-5.1) mmol/L Chloride (96-108) mmol/L Carbon Dioxide (22-29) mmol/L Anion Gap (12-20) BUN (9-16) mg/dL Creatinine (0.5-1.4) mg/dL Estim Creat Clear Calc Estimated GFR Random Glucose (60-115) mg/dL Lactic Acid (0.5-2.0) mmol/L Calcium (8.4-10.2) mg/dL Magnesium (1.6-2.6) mg/dL Total Bilirubin (0.0-1.0) mg/dL Direct Bilirubin (0.0-0.5) mg/dL AST (5-37) U/L ALT (0-40) U/L Alkaline Phosphatase (39-117) U/L Troponin I High Sens 6.4 (<3.5-35.0) ng/L B-Natriuretic Peptide (<100) pg/mL Total Protein (6.5-8.0) g/dL Albumin (3.5-5.0) g/dL Lipase (8-78) U/L Procalcitonin 0.19 ng/mL COVID-19 ([facility]) (Negative) COVID-19 Clin Com 06/10/22 06/10/22 Range/Units 23:11 23:58 WBC (4.8-10.8) X10*3/uL RBC (4.60-5.80) X10*6/uL Hgb (14.0-18.0) g/dl Hct (42.0-52.0) % MCV (80.0-98.0) fL MCH (27.0-33.0) pg MCHC (31.0-36.0) g/dl RDW (11.0-16.0) % Plt Count (160-400) X10*3/uL MPV (9.4-12.4) fL Immature Gran % (Auto) (0.0-0.4) % Neut % (Auto) (45-73) % Lymph % (Auto) (20-40) % [place] % (Auto) (2-11) % Eos % (Auto) (0-4) % Baso % (Auto) (0-2) % Lymph # (Auto) (1.2-4.9) X10*3/uL [place] # (Auto) (0.1-1.2) X10*3/uL Eos # (Auto) (0.0-0.4) X10*3/uL Baso # (Auto) (0.0-0.2) X10*3/uL Abs Immat Gran (auto) (0.00-0.03) X10*3/uL Absolute Neuts (auto) (2.0-8.3) x10*3/uL Absolute Nucleated RBC (0.0-0.012) X10*3/uL Nucleated RBC % (auto) (0.0-0.2) /100WBC Smear Tech's Comments PT (10.0-13.1) SEC INR (0.9-1.1) APTT (26.0-36.4) SEC D-Dimer High Sensitivty NG/ML VBG pH 7.30 L (7.32-7.43) VBG pCO2 49 mmHg VBG pO2 37 mmHg VBG HCO3 24 (22-26) mmol/L VBG O2 Saturation 49.0 % VBG Base Excess -1.7 mmol/L Sodium (135-145) mmol/L Potassium (3.3-5.1) mmol/L Chloride (96-108) mmol/L Carbon Dioxide (22-29) mmol/L Anion Gap (12-20) BUN (9-16) mg/dL Creatinine (0.5-1.4) mg/dL Estim Creat Clear Calc Estimated GFR Random Glucose (60-115) mg/dL Lactic Acid (0.5-2.0) mmol/L Calcium (8.4-10.2) mg/dL Magnesium (1.6-2.6) mg/dL Total Bilirubin (0.0-1.0) mg/dL Direct Bilirubin (0.0-0.5) mg/dL AST (5-37) U/L ALT (0-40) U/L Alkaline Phosphatase (39-117) U/L Troponin I High Sens (<3.5-35.0) ng/L B-Natriuretic Peptide (<100) pg/mL Total Protein (6.5-8.0) g/dL Albumin (3.5-5.0) g/dL Lipase (8-78) U/L Procalcitonin ng/mL COVID-19 ([facility]) Negative (Negative) COVID-19 Clin Com See Note ECG Data Attestation: I personally reviewed and interpreted this ECG as follows: ECG interpretation date: 06/10/22 ECG interpretation time: 22:44 Interpretation: Rate: 144 Rhythm: sinus tachycardia Echo: normal Normal P waves. Normal MAGDY. Normal QRS complex. ST T wave : no CONCHIS, artifact noted, inferior slight ST depressions qTC: normal prior studies: changed The study has been interpreted contemporaneously by me. . Discharge Plan Discharge Clinical Impression: COPD exacerbation, Pneumonia, Acidosis, lactic, Leukocytosis Patient Disposition: Admitted As Inpatient Prescriptions: No Action guaifenesin 600 mg Tablet Extended Release 12hr 600 mg PO BID nystatin 100,000 unit/mL Suspension 500,000 unit PO QID Qty: 240 0RF Protocol: Apply to: Apply to: mouth levalbuterol HCl [Xopenex Concentrate] 1.25 mg/0.5 mL Solution For Nebulization 1.25 mg inhalation Q2H PRN (Reason: shortness of breath/wheeze) Qty: 30 0RF ipratropium bromide 0.02 % Solution 0.5 mg inhalation Q6H PRN (Reason: shortness of breath or wheezing) Qty: 150 0RF nicotine 21 mg/24 hr Patch 24 Hour 21 mg transdermal DAILY Qty: 28 0RF polyethylene glycol 3350 17 gram Powder In Packet 17 g PO DAILY Qty: 30 0RF lidocaine [Lidocaine Pain Relief] 4 % Adhesive Patch,Medicated 1 patch transdermal DAILY PRN (Reason: rib pain) Qty: 30 0RF Protocol: Apply to: Apply to: ribs amoxicillin-pot clavulanate 875-125 mg tablet 1 tab PO BID Qty: 6 0RF prednisone 10 mg tablet See Rx Instructions .ROUTE .COMPLEX Qty: 30 0RF Rx Instructions: 40 mg daily x 3 days 30 mg daily x 3 days 20 mg daily x 3 days 10 mg daily x 3 days olanzapine 10 mg Tablet 10 mg PO BEDTIME psyllium Powder 1 tbsp PO DAILY Rx Instructions: mix into at least 8 oz of water or juice before administering tamsulosin 0.4 mg Capsule 0.4 mg PO DAILY trazodone 100 mg Tablet 100 mg PO BEDTIME PRN (Reason: Insomnia) benzonatate 100 mg Capsule 100 mg PO TID PRN (Reason: Cough) fluticasone propion-salmeterol [Advair Diskus] 500-50 mcg/dose Blister With Device 1 inh INHALATION BID docusate sodium 100 mg Capsule 100 mg PO DAILY PRN (Reason: Constipation) buspirone 7.5 mg Tablet 7.5 mg PO BID folic acid 1 mg Tablet 1 mg PO DAILY gabapentin 100 mg Capsule 100 mg PO BID hydroxyzine HCl 10 mg Tablet 10 mg PO Q24H PRN (Reason: Anxiety) acamprosate 333 mg Tablet,Delayed Release (Dr/Ec) 333 mg PO TID tiotropium bromide 2.5 mcg/actuation Mist 2 puff INHALATION DAILY megestrol 400 mg/10 mL (10 mL) Suspension 200 mg PO BID
[2022-06-10] MEDS: Magnesium Sulfate/H2O 2 GM/50 ML PIGGYBACK IV (22:15)
[2022-06-10] MEDS: methylPREDNISolone Sod Succ 125 MG/2 ML VIAL 60 MG IVPUSH (22:16)
[2022-06-10] MEDS: OLANZapine 10 MG VIAL 5 MG IM (22:16)
[2022-06-10] MEDS: Midazolam HCl/PF 2 MG/2 ML VIAL IVPUSH (22:32)
[2022-06-10 22:34] LABS: VBG Base Excess -4.1 mmol/L; VBG HCO3 21 mmol/L (22-26); VBG pCO2 38 mmHg; VBG pH 7.34 (7.32-7.43); VBG pO2 95 mmHg
[2022-06-10] MEDS: cefEPime HCl 1 GM in 0.9 % Sodium Chloride 50 ML IV (22:34)
[2022-06-10 22:37] LABS: Basophils Absolute Auto 0.1 X10*3/uL (0.0-0.2); Basophils Percent Auto 0.5 % (0-2); Eosinophils Absolute Auto 0.1 X10*3/uL (0.0-0.4); Eosinophils Percent Auto 0.2 % (0-4); Hematocrit 36.3 % (42.0-52.0); Hemoglobin 11.7 g/dl (14.0-18.0); Imm Gran Abs Auto 0.94 X10*3/uL (0.00-0.03); Imm Gran Pct Auto 3.9 % (0.0-0.4); Lymphocytes Absolute Auto 2.4 X10*3/uL (1.2-4.9); MANUAL DIFF FLAG SCAN; Mean Corpuscular HGB Conc 32.2 g/dl (31.0-36.0); Mean Corpuscular Hemoglobin 29.6 pg (27.0-33.0); Mean Corpuscular Volume 91.9 fL (80.0-98.0); Mean Platelet Volume 9.4 fL (9.4-12.4); Monocytes Absolute Auto 1.8 X10*3/uL (0.1-1.2); Monocytes Percent Auto 7.6 % (2-11); Neutrophils Absolute Auto 18.8 x10*3/uL (2.0-8.3); Neutrophils Percent Auto 77.8 % (45-73); Platelet Count 454 X10*3/uL (160-400); Red Blood Count 3.95 X10*6/uL (4.60-5.80); SCAN SMEAR FLAG 1; White Blood Count 24.2 X10*3/uL (4.8-10.8)
[2022-06-10 22:37] LABS: Venous Blood Gas Refer to POC result
--- NOTE | 2022-06-10 22:39 | PC.NURSE ---
Respiratory at bedside, xray taken, Iv line placed, labs collected and sent. Pt placed on bedside monitor. Pt on Bipap. Provider into assess pt. Pt medicated per Oct. Hand off report given to ALANA Shi.
[2022-06-10 22:40] LABS: SLIDE REVIEW VERIFIED
--- NOTE | 2022-06-10 22:40 | PC.NURSE ---
new iv started to left forarm #20 and wrapped.
[2022-06-10 22:51] LABS: Lactic Acid 2.3 mmol/L (0.5-2.0)
[2022-06-10 22:54] LABS: INTERNATIONAL NORM RATIO 0.9 (0.9-1.1); Prothrombin Time 10.7 SEC (10.0-13.1)
[2022-06-10 22:56] LABS: Alanine Aminotransferase 32 U/L (0-40); Alkaline Phosphatase 97 U/L (39-117); Anion Gap 18 (12-20); Aspartate Amino Transferase 29 U/L (5-37); Bilirubin Direct < 0.2 mg/dL (0.0-0.5); Bilirubin Total 0.4 mg/dL (0.0-1.0); Blood Urea Nitrogen 11 mg/dL (9-16); Calcium 8.2 mg/dL (8.4-10.2); Carbon Dioxide 20 mmol/L (22-29); Chloride 105 mmol/L (96-108); Estimated Glomerular Filt Rate > 60; Glucose Random 221 mg/dL (60-115); Lipase 18 U/L (8-78); Magnesium 1.9 mg/dL (1.6-2.6); Potassium 4.4 mmol/L (3.3-5.1); Sodium 139 mmol/L (135-145); Total Protein 5.9 g/dL (6.5-8.0)
[2022-06-10 22:57] LABS: Partial Thromboplastin Time 24.6 SEC (26.0-36.4)
[2022-06-10 23:01] LABS: Troponin-I High Sensitivity 6.4 ng/L (<3.5-35.0)
[2022-06-10 23:01] LABS: B Type Natriuretic Peptide 40 pg/mL (<100)
[2022-06-10] MEDS: Acetaminophen Supp 650 MG SUPP.RECT PR (23:05)
[2022-06-10] MEDS: 0.9 % Sodium Chloride 500 ML IV (23:07)
[2022-06-10] MEDS: Albuterol Sulfate 2.5 MG/0.5 ML VIAL.NEB 5 MG INHALE (23:09)
[2022-06-10 23:12] LABS: D Dimer High Sensitivity 675 NG/ML
[2022-06-10 23:13] LABS: Procalcitonin 0.19 ng/mL
[2022-06-10] MEDS: vancomycin HCL 1,500 MG in 0.9 % Sodium Chloride 500 ML 333.33 MG IV (23:14)
[2022-06-10 23:38] LABS: COVID-19 Test Negative (Negative)
[2022-06-11 00:03] LABS: VBG Base Excess -1.7 mmol/L; VBG HCO3 24 mmol/L (22-26); VBG pCO2 49 mmHg; VBG pO2 37 mmHg
[2022-06-11 00:06] LABS: Venous Blood Gas Refer to POC result
[2022-06-11 00:30] LABS: Reflex Lactate? Lactic Acid Added
[2022-06-11 00:39] LABS: Troponin-I High Sensitivity 10.5 ng/L (<3.5-35.0)
[2022-06-11 01:43] VITALS: BP 129/53; PULSE 111; RESP 16; TEMP 36.9; O2SAT 98
[2022-06-11 01:47] LABS: ~Lactic Acid-LAB USE ONLY 1.4 mmol/L (0.5-2.0)
--- NOTE | 2022-06-11 03:05 | PC.NURSE ---
PATIENT WAS INCONTINENT OF URINE ,CARE GIVEN LINEN CHANGE ,PATIENT IS ON PHONE CALLING SOMEONE .
[2022-06-11 04:00] VITALS: BP 130/55; PULSE 96; RESP 20; TEMP 36.8; O2SAT 98
--- NOTE | 2022-06-11 04:22 | PC.NURSE ---
Cristiana called at 0423 for a BLS transfer back to SNF per . ETA after 6am.RN aware
--- NOTE | 2022-06-11 05:01 | PC.NURSE ---
Report to Adair at [facility]
[2022-06-11 06:00] VITALS: BP 127/49; PULSE 98; RESP 20; TEMP 36.9; O2SAT 98
--- NOTE | 2022-06-11 06:13 | PC.NURSE ---
PATIENT WAS CHECK FOR INCONTINENCE AT 6AM ,PATIENT IS DRY AT THIS TIME ,PATIENT DRANK SIPS OF CONSTANTINO BISI THROUGH THE NIGHT ,PATIENT IS CURRENTLY SLEEPING .
[2022-06-11 07:02] VITALS: BP 120/53; PULSE 96; RESP 22; O2SAT 100
== END 2022-06-11 09:43 | disposition skilled nursing facility (03) ==
PROVIDERS: Emergency Provider Emergency Medicine; PCP Family Medicine
DX: J44.1 Chronic obstructive pulmonary disease with (acute) exacerbation (principal); J18.9 Pneumonia, unspecified organism; E87.20 Acidosis, unspecified; D72.829 Elevated white blood cell count, unspecified; R00.0 Tachycardia, unspecified; R06.02 Shortness of breath; F20.9 Schizophrenia, unspecified; Z20.822 Contact with and (suspected) exposure to COVID-19; J96.10 Chronic respiratory failure, unspecified whether with hypoxia or hypercapnia; F17.290 Nicotine dependence, other tobacco product, uncomplicated; Z87.891 Personal history of nicotine dependence; Z99.81 Dependence on supplemental oxygen; Z79.899 Other long term (current) drug therapy
CPT/HCPCS: 36415; 71045; 80048; 80076; 82803; 83605; 83690; 83735; 83880; 84145; 84484; 85025; 85379; 85610; 85730; 87040; 87635; 93005; 94640; 94660; 96361; 96365; 96366; 96367; 96372; 96375; 99285; J0692; J2250; J2930; J3370; J3475

== ENCOUNTER → 2022-06-14 14:49 | Outpatient (BNVA) | payer MEDICARE, BC, SELFPAY | PROVIDERS: PCP Family Medicine; Visit Provider Internal Medicine | DX: J44.9 Chronic obstructive pulmonary disease, unspecified (principal); J96.21 Acute and chronic respiratory failure with hypoxia; J18.9 Pneumonia, unspecified organism; Z99.81 Dependence on supplemental oxygen | CPT/HCPCS: 99212 ==

== ENCOUNTER 2022-07-07 12:54 | Emergency (ER) | payer OTHER, MEDICARE, BC, SELFPAY ==
--- NOTE | ~2022-07-07 | XR_ITS ---
EXAMINATION: XR CHEST CLINICAL INFORMATION: Left-sided chest pain, rule out pneumonia. COMPARISON: 06/10/2022 and 05/21/2022 chest radiographs, chest CTA dated 05/17/2022. TECHNIQUE: 2 views of the chest were obtained. FINDINGS: Persistent asymmetric opacities in the left upper lobe with decreased diffuse infiltrates but increased consolidation and pleural thickening extending to the left apex. Associated mild traction on the left superior mediastinum is seen. The right lung is clear. The heart and mediastinal structures are unremarkable. XR/XR chest 2V IMPRESSION: Evolution of opacities in the left upper lobe as detailed above with decreased infiltrates, but increased pleural thickening suggesting sequelae of the previously seen pneumonia. Continued short-term radiographic follow-up is recommended as indicated to assess for change. If these findings persist or worsen, a repeat chest CT scan is recommended.
[2022-07-07 13:01] VITALS: BP 128/90; BP 139/64; PULSE 114; PULSE 96; RESP 18; TEMP 36.2; O2SAT 100; O2SAT 98; BMI 23.6
--- NOTE | 2022-07-07 13:15 | ECG_ITS ---
Test Reason : chest pain Blood Pressure : / mmHG Vent. Rate : 093 BPM Atrial Rate : 093 BPM P-R Int : 132 ms QRS Dur : 080 ms QT Int : 336 ms P-R-T Axes : 087 079 087 degrees QTc Int : 417 ms Normal sinus rhythm Normal ECG When compared with ECG of 10-JUN-2022 22:43, Premature atrial complexes are no longer Present Vent. rate has decreased BY 51 BPM Referred By: Rajiv Cooley Electronically Signed By:PATTY GILL MD
--- NOTE | 2022-07-07 13:17 | ED.CHESTPAIN ---
HPI - Chest Pain General Chief Complaint: Chest Pain Stated Complaint: CP Time Seen by Provider: 07/07/22 13:06 Source: patient Mode of arrival: EMS Limitations: no limitations History of Present Illness HPI narrative: 66-year-old male who presents emergency department for evaluation of left-sided chest pain. He states the pain started around 10:30 on the morning of presentation. He states that he was getting himself off the toilet and was using the side arms to push himself up. He states that he then developed pain in his left chest. He then lie down and continued to have left-sided chest pain. He describes the pain is a pressure-like pain which is constant but waxes and wanes in intensity. The pain is 6/10 at its worst. The pain does not radiate. He denied associated diaphoresis, lightheadedness, nausea or vomiting. The patient states that he is living in a hotel and did not want to come to the emergency department pain. He states that the people around him were concerned and called an ambulance to transport him for evaluation of chest pain The patient denied fever, chills, rhinorrhea, sore throat. He states that he has a history of COPD and has a chronic cough which is worse in the mornings. He denied shortness of breath, dyspnea on exertion, nausea, vomiting or diarrhea. The patient does wear oxygen 3-4 L by nasal cannula continuously. Patient continues to smoke 1-2 pack of cigarettes per day for at least 40 years. MD complaint: chest pain Pertinent past history: other (COPD) Onset (ago): hour(s) (3) Timing of current episode: constant (Waxes and wanes in intensity) Prior episodes: Yes Onset: during exertion (Lifting himself off the toilet using the side arm) Pain location: left chest Pain radiation: none Severity: moderate Pain scale (0-10): 6 Quality: other (Pressure) Relieving factors: nothing Exacerbating factors: palpation and other (Moves) Treatment prior to arrival: none Related Data Home Medications Medication Instructions Recorded Confirmed acamprosate 333 mg tablet,delayed 333 mg PO TID 01/25/22 06/10/22 release benzonatate 100 mg capsule 100 mg PO TID PRN Cough 01/25/22 06/10/22 buspirone 7.5 mg tablet 7.5 mg PO BID 01/25/22 06/10/22 docusate sodium 100 mg capsule 100 mg PO DAILY PRN Constipation 01/25/22 06/10/22 fluticasone 500 mcg-salmeterol 50 1 inh inhalation BID 01/25/22 06/10/22 mcg/dose blistr powdr for inhalation (Advair Diskus) folic acid 1 mg tablet 1 mg PO DAILY 01/25/22 06/10/22 gabapentin 100 mg capsule 100 mg PO BID 01/25/22 06/10/22 hydroxyzine HCl 10 mg tablet 10 mg PO Q24H PRN Anxiety 01/25/22 06/10/22 megestrol 400 mg/10 mL (10 mL) 200 mg PO BID 01/25/22 06/10/22 oral suspension olanzapine 10 mg tablet 10 mg PO BEDTIME 01/25/22 06/10/22 psyllium 1 tbsp PO DAILY 01/25/22 06/10/22 tamsulosin 0.4 mg capsule 0.4 mg PO DAILY 01/25/22 06/10/22 tiotropium bromide 2.5 2 puff inhalation DAILY 01/25/22 06/10/22 mcg/actuation mist for inhalation trazodone 100 mg tablet 100 mg PO BEDTIME PRN Insomnia 01/25/22 06/10/22 guaifenesin 600 mg tablet, 600 mg PO BID 05/13/22 06/10/22 extended release 12 hr albuterol sulfate 90 mcg/actuation 2 inh inhalation Q4-6H PRN 06/11/22 06/11/22 aerosol inhaler (ProAir HFA) Shortness Of Breath Or Wheezing Previous Rx's Medication Instructions Recorded ipratropium bromide 0.02 % 0.5 mg (2.5 mL) inhalation Q6H PRN 05/25/22 solution for inhalation shortness of breath or wheezing #150 mL levalbuterol HCl 1.25 mg/0.5 mL 1.25 mg (0.5 mL) inhalation Q2H 05/25/22 solution for nebulization (Xopenex PRN shortness of breath/wheeze #30 Concentrate) ea lidocaine 4 % topical patch 1 patch transdermal DAILY PRN rib 05/25/22 (Lidocaine Pain Relief) pain #30 ea nicotine 21 mg/24 hr daily 21 mg transdermal DAILY #28 ea 05/25/22 transdermal patch polyethylene glycol 3350 17 gram 17 g PO DAILY #30 ea 05/25/22 oral powder packet prednisone 10 mg tablet See Rx Instructions .Route 05/25/22 .COMPLEX #30 tabs Allergies Allergy/AdvReac Type Severity Reaction Status Date / Time tree and shrub pollen Allergy Mild Rash Verified 06/14/22 15:05 Review of Systems Review of Systems: Yes all other systems are reviewed and are negative [facility] Past Medical History Medical History Acidosis, lactic COPD (chronic obstructive pulmonary disease) COPD (chronic obstructive pulmonary disease) COPD (chronic obstructive pulmonary disease) COPD (chronic obstructive pulmonary disease) Emphysema lung Leukocytosis Pneumonia Pneumothorax Right inguinal hernia Schizophrenia Smoker in home Umbilical hernia Surgical History No pertinent past surgical history Family History Family History Father CAD (coronary artery disease) Social History Social History Household Members: Other Household Members Other:: roommate Housing: Other Housing Other:: hotel Do you presently have visiting nurse or other home services: Yes Unable to assess alcohol history related to: Unknown Alcohol intake: current Alcohol intake frequency: a few times a month Alcohol type: beer Patient Tobacco Use Status: Former Tobacco user Tobacco use type: Cigarette Cigarette Packs Per Day: 1 Cigarettes Per Day: 20.0 e-Cigarette/Vaping Use: Currently Using Second Hand Smoke Exposure: No Advance Directives: Yes Advance Directives on File: Yes Advance Directives Date on File: 03/22/21 service: Yes Current occupational status: 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 HEENT: Head: Yes normal to inspection, Yes normocephalic and Yes atraumatic Ears: external ears normal General nose exam: Normal external nose present Face and sinus: Yes normal facial exam Mouth: Normal oral and palatal mucosa present Throat: Yes posterior oropharynx normal Eyes: General: appearance normal, both eyes and all related structures Pupils: Equal, round and reactive pupils present Neck: Neck: Yes normal visual inspection, Yes no lymphadenopathy, Yes trachea midline and Yes supple Chest: Chest palpation & inspection: normal inspection of the chest and tenderness (Left anterior chest wall) Resp: Effort & Inspection: normal respiratory effort and able to speak in complete sentences Auscultation: clear to auscultation bilaterally Cardio: Rate: regular rate Rhythm: regular rhythm Heart sounds: S1 normal heart sound present, S2 normal heart sound present and no murmurs GI: Inspection: Yes normal to inspection Palpation (GI): Soft to palpation, nontender and no guarding Auscultation: normal bowel sounds : General: Yes no CVA tenderness Back/Spine/Pelvis: Back: no CVA tenderness Skin: General skin exam: no rashes or lesions noted Neuro: Cranial nerves: Yes CN's II-XII intact bilaterally and Yes Equal, round and reactive pupils present Cognition (Neuro): normal cognition Motor exam (neuro): 5/5 motor strength present throughout Extrem: General: Yes normal to inspection Psych: Appearance: grossly normal Speech and movement: Normal speech and movement present Affect: normal affect Attitude: cooperative Thought process: Normal thought process present Thought content: Normal thought content present Course Course Course Narrative: 66-year-old male with a history of COPD home oxygen dependent 3-4 L via nasal cannula presents emergency department for evaluation of left-sided chest pain which started after he tried to lift himself off the toilet using the arm rest. The pain is located in his left anterior chest, is worse with movement and worse with palpation. He denied any prodromal illness and he has no significant associated symptoms. Vital signs were normal with an O2 saturation of 100% on nasal cannula. Patient does have left-sided chest wall tenderness. The patient is adamant about not getting blood work and refused blood draw. He did consent to a two-view chest x-ray and EKG 1343: 12 EKG revealed chronic findings which were present on a previous EKG dated 06/10/2022. Two-view chest x-ray revealed no pneumothorax or acute process. The patient is still refusing blood work, at this point he is able to understand the consequences of not checking the troponin. The patient's pain however is most likely musculoskeletal and he was given ibuprofen 600 mg orally. The patient will be discharged home. MDM - Chest Pain Medical Records Data Attestation: I reviewed the patient's medical records. Imaging Data Chest x-ray: Attestation: I personally reviewed and interpreted this imaging study as follows: My impression: No acute disease, no pneumothorax Radiologist's impression: No acute disease ECG Data ECG #1: Attestation: I personally reviewed and interpreted this ECG as follows: Interpretation: 1329: Normal sinus rhythm rate of 93, normal TX, QRS and QTC intervals, Q-waves V1 through V2, no significant T-wave abnormalities, no ST segment elevation or depression, no PACs, no PVCs, compared to EKG dated 06/10/2022 patient was tachycardic at 144 beats per minute on the previous EKG with Q-waves a present on this old EKG. Discharge Plan Discharge Clinical Impression: Acute chest wall pain Patient Disposition: Home, Self-Care Instructions: Costochondritis (ED) Additional Instructions: Your EKG was unremarkable. Your chest x-ray was unremarkable. Your pain is most likely caused by the muscles and joints of your chest. Take ibuprofen 200 mg pills, 2 pills every 6 hours as needed for pain. Take Tylenol (acetaminophen) 500 mg pills, 2 pills every 4 to 6 hours as needed for pain. Follow-up with your doctor in 2 days. Please return to the emergency department if your symptoms get worse or if you develop any symptoms that are concerning to you. Prescriptions: No Action guaifenesin 600 mg Tablet Extended Release 12hr 600 mg PO BID levalbuterol HCl [Xopenex Concentrate] 1.25 mg/0.5 mL Solution For Nebulization 1.25 mg inhalation Q2H PRN (Reason: shortness of breath/wheeze) Qty: 30 0RF ipratropium bromide 0.02 % Solution 0.5 mg inhalation Q6H PRN (Reason: shortness of breath or wheezing) Qty: 150 0RF nicotine 21 mg/24 hr Patch 24 Hour 21 mg transdermal DAILY Qty: 28 0RF polyethylene glycol 3350 17 gram Powder In Packet 17 g PO DAILY Qty: 30 0RF lidocaine [Lidocaine Pain Relief] 4 % Adhesive Patch,Medicated 1 patch transdermal DAILY PRN (Reason: rib pain) Qty: 30 0RF Protocol: Apply to: Apply to: ribs prednisone 10 mg tablet See Rx Instructions .ROUTE .COMPLEX Qty: 30 0RF Rx Instructions: 40 mg daily x 3 days 30 mg daily x 3 days 20 mg daily x 3 days 10 mg daily x 3 days olanzapine 10 mg Tablet 10 mg PO BEDTIME psyllium Powder 1 tbsp PO DAILY Rx Instructions: mix into at least 8 oz of water or juice before administering tamsulosin 0.4 mg Capsule 0.4 mg PO DAILY trazodone 100 mg Tablet 100 mg PO BEDTIME PRN (Reason: Insomnia) benzonatate 100 mg Capsule 100 mg PO TID PRN (Reason: Cough) fluticasone propion-salmeterol [Advair Diskus] 500-50 mcg/dose Blister With Device 1 inh INHALATION BID docusate sodium 100 mg Capsule 100 mg PO DAILY PRN (Reason: Constipation) buspirone 7.5 mg Tablet 7.5 mg PO BID folic acid 1 mg Tablet 1 mg PO DAILY gabapentin 100 mg Capsule 100 mg PO BID hydroxyzine HCl 10 mg Tablet 10 mg PO Q24H PRN (Reason: Anxiety) acamprosate 333 mg Tablet,Delayed Release (Dr/Ec) 333 mg PO TID tiotropium bromide 2.5 mcg/actuation Mist 2 puff INHALATION DAILY megestrol 400 mg/10 mL (10 mL) Suspension 200 mg PO BID albuterol sulfate [ProAir HFA] 90 mcg/actuation HFA aerosol inhaler 2 inh inhalation Q4-6H PRN (Reason: Shortness Of Breath Or Wheezing)
--- NOTE | 2022-07-07 13:22 | PC.NURSE ---
PT reports left side shoulder pain. States he was getting up from the toilet when pain started rates pain 6/10, does not radiate. PT states staff from [facility] made him come him. Denies headache or dizziness. PT on 3L baseline 02. LSCTA. VSS.
[2022-07-07] MEDS: Ibuprofen 600 MG TABLET PO (13:48)
== END 2022-07-07 16:19 | disposition home or self-care (01) ==
PROVIDERS: Emergency Provider Emergency Medicine Emergency Medical Services; PCP Family Medicine Geriatric Medicine
DX: R07.89 Other chest pain (principal); F17.210 Nicotine dependence, cigarettes, uncomplicated; Z99.81 Dependence on supplemental oxygen; Z79.899 Other long term (current) drug therapy
CPT/HCPCS: 71046; 93005; 99283; 99284

== ENCOUNTER 2022-10-11 12:22 | Outpatient (REF) | payer OTHER, MEDICARE, BC, SELFPAY ==
--- NOTE | ~2022-10-11 | CT_ITS ---
EXAMINATION: CT CHEST, ABDOMEN AND PELVIS WITHOUT CONTRAST CLINICAL INFORMATION: Pulmonary nodule, back pain,? intra-abdominal malignancy. COMPARISON: CT angiogram chest 05/17/2022, CT abdomen and pelvis 05/13/2022. TECHNIQUE: Multidetector volumetric imaging was performed from the thoracic inlet through the pubic symphysis without IV contrast. Sagittal and coronal reformatted images were obtained on the technologist's workstation. This CT examination was performed using dose optimization techniques as appropriate, variously including the following: *Automated exposure control *Adjustment of mA and/or kV according to patient size (this includes techniques or standardized protocols for targeted exams where dose is matched to indication/reason for exam; i.e. extremities or head) *Use of iterative reconstruction technique DLP: 414 mGy-cm FINDINGS: CHEST: Lung: Again noted are severe emphysematous changes in the lungs. Previously noted markedly extensive left upper lobe consolidation has cleared considerably with a small amount of abnormality remaining. There is new area of spiculated medial atelectasis with associated bronchiectasis seen in the superior segment of the left lower lobe (7:205). The previously seen 4 mm subpleural nodule in the right upper lobe laterally (prior 7:243) is no longer present. No new suspicious lung nodules are seen. Mediastinum: The mediastinum is unremarkable. The central vascular structures are unremarkable. Some small mediastinal lymph nodes are seen but there is no hilar or mediastinal lymphadenopathy. Dense calcium present in the left coronary artery. Pericardium/Pleura: No significant effusion. No pleural mass or thickening. Chest Wall/Axilla: Unremarkable ABDOMEN/PELVIS: Peritoneal Space: No significant free air or free fluid identified. Liver, Gallbladder, Biliary Tree: The liver is normal in size, shape, and attenuation. No focal hepatic lesion or biliary ductal dilatation is present. The gallbladder is unremarkable with no evidence of radiopaque gallstones, gallbladder wall thickening, or obvious pericholecystic inflammatory changes. Pancreas: Unremarkable Spleen: Unremarkable Adrenal Glands: There is a fat density left adrenal adenoma unchanged from prior. The right adrenal gland appears normal. Kidneys and Ureters: The kidneys are normal in size, shape, and attenuation. Renal calcifications are vascular rather than nephrolithiasis. No hydronephrosis, hydroureter, or calculi seen. No perinephric stranding. Bladder: Symmetric bladder wall thickening. Gastrointestinal Tract: The small and large bowel are unremarkable. The appendix is unremarkable. Abdominal Wall: No significant hernia is appreciated. Lymph Nodes: No lymphadenopathy. Vascular: Extensive aortoiliofemoral calcific atherosclerotic changes are present. The IVC appears unremarkable. PELVIC VISCERA: Unremarkable OSSEUS STRUCTURES: Moderate degenerative changes are noted in the spine most marked from L1 through L4. No bony destructive lesions are seen. CT/CT abdomen pelvis wo IV con IMPRESSION: 1. Previously seen extensive left upper lobe consolidation has demonstrated significant clearing with a small amount of abnormality remaining. 2. There is a new area of spiculated atelectasis with associated bronchiectasis in the superior segment of the left lower lobe. This should be followed on future studies. 3. No evidence of malignancy in the abdomen or pelvis. 4. Incidental note made of severe emphysema, stable left adrenal adenoma, symmetric bladder wall thickening and degenerative changes in the spine. Fleischner guidelines were followed.
[2022-10-11] MEDS: Barium Sulfate Oral (Berry) 450 ML ORAL.SUSP 900 ML PO (17:08)
== END 2022-10-11 12:23 | disposition home or self-care (01) ==
LOC: HO.CT 12:22
PROVIDERS: PCP Physician Assistant Medical; Visit Provider Physician Assistant Medical
DX: R91.1 Solitary pulmonary nodule (principal)
CPT/HCPCS: 71250; 74176

== ENCOUNTER 2023-03-08 16:59 | Emergency (ER) | payer OTHER, SELFPAY ==
--- NOTE | ~2023-03-08 | CT_ITS ---
EXAMINATION: CT CHEST WITHOUT CONTRAST CLINICAL INFORMATION: Shortness of breath COMPARISON: Chest radiograph earlier today, chest CT 10/11/2022 TECHNIQUE: Multidetector volumetric CT imaging of the chest was done. Axial MIP volume rendering provided. Sagittal and coronal reformatted images were obtained. This CT examination was performed using dose optimization techniques as appropriate, variously including the following: *Automated exposure control *Adjustment of mA and/or kV according to patient size (this includes techniques or standardized protocols for targeted exams where dose is matched to indication/reason for exam; i.e. extremities or head) *Use of iterative reconstruction technique DLP: 160 mGy-cm FINDINGS: CHEST: Lung: Again noted are severe emphysematous changes in the lungs. There is marked bronchiectasis present in the left upper lobe with airspace disease as well as a large cystic space. The airspace component has increased slightly when compared to the prior study. The previously seen new area of spiculated medial atelectasis with associated bronchiectasis (prior 7:205) is now engulfed by worsening airspace disease and is no longer apparent. There are new tree-in-bud opacities seen in the right middle lobe and lingula (see corey images). No new worrisome mass is seen to suggest malignancy. Mediastinum: Heart size is small. Calcific atherosclerotic change present in the aorta without aneurysm. Extensive coronary calcification is present. No mediastinal or hilar lymphadenopathy. Pericardium/Pleura: No significant effusion. No pleural mass or thickening. Chest Wall/Axilla: Unremarkable Upper abdomen: Renovascular calcifications are seen. CT/CT chest wo IV con IMPRESSION: 1. Severe emphysematous changes. 2. Worsening bronchiectasis with airspace disease in the left upper lobe with large cystic space. 3. New tree-in-bud opacities in the right middle lobe and lingula. 4. No worrisome mass is seen to suggest malignancy.
--- NOTE | ~2023-03-08 | XR_ITS ---
EXAMINATION: XR CHEST CLINICAL INFORMATION: Productive cough. COMPARISON: Chest radiograph 07/07/2022. TECHNIQUE: 2 views of the chest were obtained. FINDINGS: Again noted extensive architectural distortion with consolidative airspace opacities and bronchiectasis in the left upper lobe, slightly progressed compared to x-ray from 07/07/2022. New focal hazy airspace opacities in the lower lungs bilaterally compared to x-ray from 07/07/2022. No significant pleural effusion or pneumothorax. Stable appearance of the cardiomediastinal silhouette with mild leftward deviation secondary to volume loss of the left lung. Thoracic spondylosis. No acute osseous findings. XR/XR chest 2V IMPRESSION: Progression of consolidative airspace opacities in the left apex as well as new bibasilar hazy airspace opacities compared to 07/07/2022. Findings are nonspecific and could be associated with an infectious or inflammatory process in the appropriate clinical context. However, given the complexity of the background and advanced emphysema, a follow-up chest CT is recommended to ensure the absence of underlying malignancy.
[2023-03-08 17:06] VITALS: BP 110/60; PULSE 85; O2SAT 98
[2023-03-08 17:51] VITALS: BP 94/48; PULSE 91; RESP 18; TEMP 35.9; O2SAT 100; BMI 22.1
--- NOTE | 2023-03-08 17:51 | ED_ITS ---
HPI - General Adult General Chief complaint: Recheck/Abnormal Lab/Rx Stated complaint: COUGH X 2 DAYS Time Seen by Provider: 03/08/23 19:55 Related Data Home Medications Medication Instructions Recorded Confirmed acamprosate 333 mg tablet,delayed 333 mg PO TID 01/25/22 06/10/22 release benzonatate 100 mg capsule 100 mg PO TID PRN Cough 01/25/22 06/10/22 buspirone 7.5 mg tablet 7.5 mg PO BID 01/25/22 06/10/22 docusate sodium 100 mg capsule 100 mg PO DAILY PRN Constipation 01/25/22 06/10/22 fluticasone 500 mcg-salmeterol 50 1 inh inhalation BID 01/25/22 06/10/22 mcg/dose blistr powdr for inhalation (Advair Diskus) folic acid 1 mg tablet 1 mg PO DAILY 01/25/22 06/10/22 gabapentin 100 mg capsule 100 mg PO BID 01/25/22 06/10/22 hydroxyzine HCl 10 mg tablet 10 mg PO Q24H PRN Anxiety 01/25/22 06/10/22 megestrol 400 mg/10 mL (10 mL) 200 mg PO BID 01/25/22 06/10/22 oral suspension olanzapine 10 mg tablet 10 mg PO BEDTIME 01/25/22 06/10/22 psyllium 1 tbsp PO DAILY 01/25/22 06/10/22 tamsulosin 0.4 mg capsule 0.4 mg PO DAILY 01/25/22 06/10/22 tiotropium bromide 2.5 2 puff inhalation DAILY 01/25/22 06/10/22 mcg/actuation mist for inhalation trazodone 100 mg tablet 100 mg PO BEDTIME PRN Insomnia 01/25/22 06/10/22 guaifenesin 600 mg tablet, 600 mg PO BID 05/13/22 06/10/22 extended release 12 hr albuterol sulfate 90 mcg/actuation 2 inh inhalation Q4-6H PRN 06/11/22 06/11/22 aerosol inhaler (ProAir HFA) Shortness Of Breath Or Wheezing Previous Rx's Medication Instructions Recorded ipratropium bromide 0.02 % 0.5 mg (2.5 mL) inhalation Q6H PRN 05/25/22 solution for inhalation shortness of breath or wheezing #150 mL levalbuterol HCl 1.25 mg/0.5 mL 1.25 mg (0.5 mL) inhalation Q2H 05/25/22 solution for nebulization (Xopenex PRN shortness of breath/wheeze #30 Concentrate) ea lidocaine 4 % topical patch 1 patch transdermal DAILY PRN rib 05/25/22 (Lidocaine Pain Relief) pain #30 ea nicotine 21 mg/24 hr daily 21 mg transdermal DAILY #28 ea 05/25/22 transdermal patch polyethylene glycol 3350 17 gram 17 g PO DAILY #30 ea 05/25/22 oral powder packet prednisone 10 mg tablet See Rx Instructions .Route 05/25/22 .COMPLEX #30 tabs levofloxacin 500 mg tablet 500 mg PO DAILY #10 tabs 03/08/23 Allergies Allergy/AdvReac Type Severity Reaction Status Date / Time tree and shrub pollen Allergy Mild Rash Verified 06/14/22 15:05 [facility] Past Medical History Medical History Acidosis, lactic COPD (chronic obstructive pulmonary disease) COPD (chronic obstructive pulmonary disease) COPD (chronic obstructive pulmonary disease) COPD (chronic obstructive pulmonary disease) Emphysema lung Leukocytosis Pneumonia Pneumothorax Right inguinal hernia Schizophrenia Smoker in home Umbilical hernia Surgical History No pertinent past surgical history Family History Family History Father CAD (coronary artery disease) Social History Social History Household Members: Other Household Members Other:: roommate Housing: Other Housing Other:: hotel Do you presently have visiting nurse or other home services: Yes Unable to assess alcohol history related to: Unknown Alcohol intake: current Alcohol intake frequency: a few times a month Alcohol type: beer Patient Tobacco Use Status: Former Tobacco user Tobacco use type: Cigarette Cigarette Packs Per Day: 1 Cigarettes Per Day: 20.0 e-Cigarette/Vaping Use: Currently Using Second Hand Smoke Exposure: No Advance Directives: Yes Advance Directives on File: Yes Advance Directives Date on File: 03/22/21 service: Yes Current occupational status: 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 Physical Exam ED Vital Signs: Vital Signs - 24 hr 03/08/23 17:51 03/08/23 19:21 03/08/23 21:42 Temperature 96.7 F L 97.6 F 97.3 F Pulse Rate 91 86 75 Respiratory Rate 18 16 16 Blood Pressure 94/48 L 129/56 L 138/53 L Pulse Oximetry 100 99 100 Oxygen Delivery Method Room Air Room Air Nasal Cannula Oxygen Flow Rate 4 03/08/23 22:27 Temperature Pulse Rate Respiratory Rate Blood Pressure Pulse Oximetry 100 Oxygen Delivery Method Room Air Oxygen Flow Rate BMI result Body Mass Index 22.1 Course Course Course Narrative: This is a rapid medical exam: Additional HPI, ROS, PE not included below will be deferred to primary provider. Patient is a 67-year-old male with history of COPD, chronic respiratory failure with hypoxia, leukocytosis, and pulmonary n odules presenting to the emergency department from the [facility] with complaint of productive cough for the past 2 days. Also complains of right ear pressure and generalized weakness. Denies fevers. EMS reports patient was hypotensive at the [facility] but normotensive for them. BP here 94/48, HR 104, O2 99% on room air. Patient also reports intermittent vertigo for the past 22 years. Lung sounds diminished throughout. Plan: EKG, labs including blood cultures and lactic, CXR Reevaluation(s) Reevaluation #1: This is a 67-year-old male who was signed out to me to follow-up on a chest x- ray, has low level leukocytosis likely consistent with underlying COPD with bronchiectasis. Patient received antibiotics here and is oxygenating well without tachypnea. He will be discharged home with a full course of antibiotic treatment. I did change the medication from doxycycline to levofloxacin according to Infectious Disease recommendations for bronchiectasis/bronchitis. Time: 22:46 Medications Administered Discontinued Medications Generic Name Dose Route Start Last Admin Trade Name Freq PRN Reason Stop Dose Admin Sodium Chloride 1,000 mls @ 999 mls/hr 03/08/23 21:00 03/08/23 21:23 Ns IV 03/08/23 22:00 999 mls/hr .Q1H1M CUAUHTEMOC Administration Medical Decision Making Lab Data 03/08/23 18:33 03/08/23 18:33 Labs: Lab Results 03/08/23 03/08/23 03/08/23 Range/Units 18:33 18:33 18:33 WBC 12.4 H (4.8-10.8) X10*3/uL RBC 4.22 L (4.60-5.80) X10*6/uL Hgb 11.1 L (14.0-18.0) g/dl Hct 35.1 L (42.0-52.0) % MCV 83.2 (80.0-98.0) fL MCH 26.3 L (27.0-33.0) pg MCHC 31.6 (31.0-36.0) g/dl RDW 16.0 (11.0-16.0) % Plt Count 549 H (160-400) X10*3/uL MPV 8.8 L (9.4-12.4) fL Immature Gran % (Auto) 0.4 (0.0-0.4) % Neut % (Auto) 89.1 H (45-73) % Lymph % (Auto) 8.2 L (20-40) % [place] % (Auto) 1.9 L (2-11) % Eos % (Auto) 0.0 (0-4) % Baso % (Auto) 0.4 (0-2) % Lymph # (Auto) 1.0 L (1.2-4.9) X10*3/uL [place] # (Auto) 0.2 (0.1-1.2) X10*3/uL Eos # (Auto) 0.0 (0.0-0.4) X10*3/uL Baso # (Auto) 0.1 (0.0-0.2) X10*3/uL Abs Immat Gran (auto) 0.05 H (0.00-0.03) X10*3/uL Absolute Neuts (auto) 11.0 H (2.0-8.3) x10*3/uL Absolute Nucleated RBC 0.000 (0.0-0.012) X10*3/uL Nucleated RBC % (auto) 0.0 (0.0-0.2) /100WBC Sodium 133 L (135-145) mmol/L Potassium 3.8 (3.3-5.1) mmol/L Chloride 101 (96-108) mmol/L Carbon Dioxide 18 L (22-29) mmol/L Anion Gap 18 (12-20) BUN 5 L (9-16) mg/dL Creatinine 0.76 (0.5-1.4) mg/dL Estim Creat Clear Calc 88.2 Estimated GFR > 60 Random Glucose 192 H (60-115) mg/dL Lactic Acid (0.5-2.0) mmol/L Calcium 9.5 D (8.4-10.2) mg/dL Total Bilirubin 0.8 (0.0-1.0) mg/dL AST 11 (5-37) U/L ALT 6 (0-40) U/L Alkaline Phosphatase 105 (39-117) U/L Troponin I High Sens < 2.7 (<3.5-35.0) ng/L Total Protein 7.7 (6.5-8.0) g/dL Albumin 3.0 L (3.5-5.0) g/dL 03/08/23 Range/Units 18:33 WBC (4.8-10.8) X10*3/uL RBC (4.60-5.80) X10*6/uL Hgb (14.0-18.0) g/dl Hct (42.0-52.0) % MCV (80.0-98.0) fL MCH (27.0-33.0) pg MCHC (31.0-36.0) g/dl RDW (11.0-16.0) % Plt Count (160-400) X10*3/uL MPV (9.4-12.4) fL Immature Gran % (Auto) (0.0-0.4) % Neut % (Auto) (45-73) % Lymph % (Auto) (20-40) % [place] % (Auto) (2-11) % Eos % (Auto) (0-4) % Baso % (Auto) (0-2) % Lymph # (Auto) (1.2-4.9) X10*3/uL [place] # (Auto) (0.1-1.2) X10*3/uL Eos # (Auto) (0.0-0.4) X10*3/uL Baso # (Auto) (0.0-0.2) X10*3/uL Abs Immat Gran (auto) (0.00-0.03) X10*3/uL Absolute Neuts (auto) (2.0-8.3) x10*3/uL Absolute Nucleated RBC (0.0-0.012) X10*3/uL Nucleated RBC % (auto) (0.0-0.2) /100WBC Sodium (135-145) mmol/L Potassium (3.3-5.1) mmol/L Chloride (96-108) mmol/L Carbon Dioxide (22-29) mmol/L Anion Gap (12-20) BUN (9-16) mg/dL Creatinine (0.5-1.4) mg/dL Estim Creat Clear Calc Estimated GFR Random Glucose (60-115) mg/dL Lactic Acid 1.5 (0.5-2.0) mmol/L Calcium (8.4-10.2) mg/dL Total Bilirubin (0.0-1.0) mg/dL AST (5-37) U/L ALT (0-40) U/L Alkaline Phosphatase (39-117) U/L Troponin I High Sens (<3.5-35.0) ng/L Total Protein (6.5-8.0) g/dL Albumin (3.5-5.0) g/dL Discharge Plan Discharge Clinical Impression: Bronchitis, Bronchiectasis Patient Disposition: Home, Self-Care Instructions: Chronic Bronchitis (DC) Additional Instructions: 1. Resume all home medications. Complete the course of antibiotics as ordered. 2. Follow-up with your primary care provider 1st thing in the morning as well as your appliance worker if you have 1. 3. Return to the ER for any worsening symptoms. Prescriptions: New levofloxacin 500 mg tablet 500 mg PO DAILY Qty: 10 0RF No Action guaifenesin 600 mg Tablet Extended Release 12hr 600 mg PO BID levalbuterol HCl [Xopenex Concentrate] 1.25 mg/0.5 mL Solution For Nebulization 1.25 mg inhalation Q2H PRN (Reason: shortness of breath/wheeze) Qty: 30 0RF ipratropium bromide 0.02 % Solution 0.5 mg inhalation Q6H PRN (Reason: shortness of breath or wheezing) Qty: 150 0RF nicotine 21 mg/24 hr Patch 24 Hour 21 mg transdermal DAILY Qty: 28 0RF polyethylene glycol 3350 17 gram Powder In Packet 17 g PO DAILY Qty: 30 0RF lidocaine [Lidocaine Pain Relief] 4 % Adhesive Patch,Medicated 1 patch transdermal DAILY PRN (Reason: rib pain) Qty: 30 0RF Protocol: Apply to: Apply to: ribs prednisone 10 mg tablet See Rx Instructions .ROUTE .COMPLEX Qty: 30 0RF Rx Instructions: 40 mg daily x 3 days 30 mg daily x 3 days 20 mg daily x 3 days 10 mg daily x 3 days olanzapine 10 mg Tablet 10 mg PO BEDTIME psyllium Powder 1 tbsp PO DAILY Rx Instructions: mix into at least 8 oz of water or juice before administering tamsulosin 0.4 mg Capsule 0.4 mg PO DAILY trazodone 100 mg Tablet 100 mg PO BEDTIME PRN (Reason: Insomnia) benzonatate 100 mg Capsule 100 mg PO TID PRN (Reason: Cough) fluticasone propion-salmeterol [Advair Diskus] 500-50 mcg/dose Blister With Device 1 inh INHALATION BID docusate sodium 100 mg Capsule 100 mg PO DAILY PRN (Reason: Constipation) buspirone 7.5 mg Tablet 7.5 mg PO BID folic acid 1 mg Tablet 1 mg PO DAILY gabapentin 100 mg Capsule 100 mg PO BID hydroxyzine HCl 10 mg Tablet 10 mg PO Q24H PRN (Reason: Anxiety) acamprosate 333 mg Tablet,Delayed Release (Dr/Ec) 333 mg PO TID tiotropium bromide 2.5 mcg/actuation Mist 2 puff INHALATION DAILY megestrol 400 mg/10 mL (10 mL) Suspension 200 mg PO BID albuterol sulfate [ProAir HFA] 90 mcg/actuation HFA aerosol inhaler 2 inh inhalation Q4-6H PRN (Reason: Shortness Of Breath Or Wheezing) Referrals: All [facility] [Primary Care Provider] - 03/10/23
--- NOTE | 2023-03-08 17:53 | ECG_ITS ---
Test Reason : dyspnea Blood Pressure : / mmHG Vent. Rate : 094 BPM Atrial Rate : 094 BPM P-R Int : 132 ms QRS Dur : 084 ms QT Int : 368 ms P-R-T Axes : 089 074 085 degrees QTc Int : 460 ms Sinus rhythm with occasional Premature ventricular complexes and Premature atrial complexes Nonspecific ST abnormality Abnormal ECG When compared with ECG of 07-JUL-2022 13:29, Premature ventricular complexes are now Present Premature atrial complexes are now Present Referred By: Farida Conteh Electronically Signed By:CRYSTAL NARVAEZ MD
[2023-03-08 18:42] LABS: MANUAL DIFF FLAG NO
[2023-03-08 18:43] LABS: Basophils Absolute Auto 0.1 X10*3/uL (0.0-0.2); Basophils Percent Auto 0.4 % (0-2); Hematocrit 35.1 % (42.0-52.0); Hemoglobin 11.1 g/dl (14.0-18.0); Imm Gran Abs Auto 0.05 X10*3/uL (0.00-0.03); Imm Gran Pct Auto 0.4 % (0.0-0.4); Lymphocytes Percent Auto 8.2 % (20-40); Mean Corpuscular HGB Conc 31.6 g/dl (31.0-36.0); Mean Corpuscular Hemoglobin 26.3 pg (27.0-33.0); Mean Corpuscular Volume 83.2 fL (80.0-98.0); Mean Platelet Volume 8.8 fL (9.4-12.4); Monocytes Absolute Auto 0.2 X10*3/uL (0.1-1.2); Monocytes Percent Auto 1.9 % (2-11); Neutrophils Percent Auto 89.1 % (45-73); Platelet Count 549 X10*3/uL (160-400); Red Blood Count 4.22 X10*6/uL (4.60-5.80); White Blood Count 12.4 X10*3/uL (4.8-10.8)
[2023-03-08 18:59] LABS: Lactic Acid 1.5 mmol/L (0.5-2.0)
[2023-03-08 19:02] LABS: Alanine Aminotransferase 6 U/L (0-40); Alkaline Phosphatase 105 U/L (39-117); Anion Gap 18 (12-20); Aspartate Amino Transferase 11 U/L (5-37); Bilirubin Total 0.8 mg/dL (0.0-1.0); Blood Urea Nitrogen 5 mg/dL (9-16); Calcium 9.5 mg/dL (8.4-10.2); Carbon Dioxide 18 mmol/L (22-29); Chloride 101 mmol/L (96-108); Creatinine Clr Calc Pharmacy 88.2; Estimated Glomerular Filt Rate > 60; Glucose Random 192 mg/dL (60-115); Potassium 3.8 mmol/L (3.3-5.1); Sodium 133 mmol/L (135-145); Total Protein 7.7 g/dL (6.5-8.0)
[2023-03-08 19:10] LABS: Troponin-I High Sensitivity < 2.7 ng/L (<3.5-35.0)
[2023-03-08 19:21] VITALS: BP 129/56; PULSE 86; RESP 16; TEMP 36.4; O2SAT 99
--- NOTE | 2023-03-08 21:16 | ED_ITS ---
HPI - General Adult General Chief complaint: Recheck/Abnormal Lab/Rx Stated complaint: COUGH X 2 DAYS Time Seen by Provider: 03/08/23 19:55 History of Present Illness HPI narrative: Patient is a 67-year-old male with a long history of smoking history of COPD history of being chronically O2 dependent. Presents today with generalized malaise weakness. Patient's claims that he was short of breath earlier he coughed a little bit and the symptoms seems to have resolved. Patient denies any focal weakness. Denies any nausea vomiting. He is from home. He denies any chest pain. He feels he is somewhat dehydrated. Patient claims he is able to ambulate. He was noted to have a low blood pressure earlier. He has been admitted previously for lactic acidosis. He still smokes. He lives in a hotel. Related Data Home Medications Medication Instructions Recorded Confirmed acamprosate 333 mg tablet,delayed 333 mg PO TID 01/25/22 06/10/22 release benzonatate 100 mg capsule 100 mg PO TID PRN Cough 01/25/22 06/10/22 buspirone 7.5 mg tablet 7.5 mg PO BID 01/25/22 06/10/22 docusate sodium 100 mg capsule 100 mg PO DAILY PRN Constipation 01/25/22 06/10/22 fluticasone 500 mcg-salmeterol 50 1 inh inhalation BID 01/25/22 06/10/22 mcg/dose blistr powdr for inhalation (Advair Diskus) folic acid 1 mg tablet 1 mg PO DAILY 01/25/22 06/10/22 gabapentin 100 mg capsule 100 mg PO BID 01/25/22 06/10/22 hydroxyzine HCl 10 mg tablet 10 mg PO Q24H PRN Anxiety 01/25/22 06/10/22 megestrol 400 mg/10 mL (10 mL) 200 mg PO BID 01/25/22 06/10/22 oral suspension olanzapine 10 mg tablet 10 mg PO BEDTIME 01/25/22 06/10/22 psyllium 1 tbsp PO DAILY 01/25/22 06/10/22 tamsulosin 0.4 mg capsule 0.4 mg PO DAILY 01/25/22 06/10/22 tiotropium bromide 2.5 2 puff inhalation DAILY 01/25/22 06/10/22 mcg/actuation mist for inhalation trazodone 100 mg tablet 100 mg PO BEDTIME PRN Insomnia 01/25/22 06/10/22 guaifenesin 600 mg tablet, 600 mg PO BID 05/13/22 06/10/22 extended release 12 hr albuterol sulfate 90 mcg/actuation 2 inh inhalation Q4-6H PRN 06/11/22 06/11/22 aerosol inhaler (ProAir HFA) Shortness Of Breath Or Wheezing Previous Rx's Medication Instructions Recorded ipratropium bromide 0.02 % 0.5 mg (2.5 mL) inhalation Q6H PRN 05/25/22 solution for inhalation shortness of breath or wheezing #150 mL levalbuterol HCl 1.25 mg/0.5 mL 1.25 mg (0.5 mL) inhalation Q2H 05/25/22 solution for nebulization (Xopenex PRN shortness of breath/wheeze #30 Concentrate) ea lidocaine 4 % topical patch 1 patch transdermal DAILY PRN rib 05/25/22 (Lidocaine Pain Relief) pain #30 ea nicotine 21 mg/24 hr daily 21 mg transdermal DAILY #28 ea 05/25/22 transdermal patch polyethylene glycol 3350 17 gram 17 g PO DAILY #30 ea 05/25/22 oral powder packet prednisone 10 mg tablet See Rx Instructions .Route 05/25/22 .COMPLEX #30 tabs doxycycline hyclate 100 mg tablet 100 mg PO BID 7 days #14 tabs 03/08/23 Allergies Allergy/AdvReac Type Severity Reaction Status Date / Time tree and shrub pollen Allergy Mild Rash Verified 06/14/22 15:05 Review of Systems Review of Systems: Positive coughing positive upper respiratory symptoms similar to previous. There is no change in terms of breathing. Positive generalized malaise patient feels he is dehydrated Yes all other systems are reviewed and are negative [facility] Past Medical History Attestation statement: The following information was validated with the patient. Medical History Acidosis, lactic COPD (chronic obstructive pulmonary disease) COPD (chronic obstructive pulmonary disease) COPD (chronic obstructive pulmonary disease) COPD (chronic obstructive pulmonary disease) Emphysema lung Leukocytosis Pneumonia Pneumothorax Right inguinal hernia Schizophrenia Smoker in home Umbilical hernia Surgical History No pertinent past surgical history Family History Family History Father CAD (coronary artery disease) Social History Social History Household Members: Other Household Members Other:: roommate Housing: Other Housing Other:: hotel Do you presently have visiting nurse or other home services: Yes Unable to assess alcohol history related to: Unknown Alcohol intake: current Alcohol intake frequency: a few times a month Alcohol type: beer Patient Tobacco Use Status: Former Tobacco user Tobacco use type: Cigarette Cigarette Packs Per Day: 1 Cigarettes Per Day: 20.0 e-Cigarette/Vaping Use: Currently Using Second Hand Smoke Exposure: No Advance Directives: Yes Advance Directives on File: Yes Advance Directives Date on File: 03/22/21 service: Yes Current occupational status: 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 Oriented X3. No acute distress. Eyes: Pupils equal, round and reactive to light. ENT: Pharynx normal. Neck: Normal inspection. Neck supple. No lymph nodes noted. No crepitus CVS: Normal heart rate and rhythm. Pulses normal. Normal S1 and S2 Respiratory: Diminished breath sounds bilaterally Abdomen: Soft and nontender. No rigidity. No distention. good BS x4 Skin: Skin warm and dry. Normal skin color. Normal skin turgor. Extremities: No lower extremity edema. Neurovascular intact to all extremities. No Lacerations. No Rash Neuro: Oriented X 3. No motor deficit. No sensory deficit. Moving all extermi ties. No slurred speech Medications Administered Discontinued Medications Generic Name Dose Route Start Last Admin Trade Name Freq PRN Reason Stop Dose Admin Sodium Chloride 1,000 mls @ 999 mls/hr 03/08/23 21:00 03/08/23 21:23 Ns IV 03/08/23 22:00 999 mls/hr .Q1H1M CUAUHTEMOC Administration Medical Decision Making Medical Decision Making [facility] Narrative: Patient has no fever here in the emergency department. White count is 12 which is approximately baseline. Patient's hemoglobin 11.1 which is approximately baseline. No evidence of anemia. Patient's electrolytes showed a sodium 133. Bicarb is on low and 18. BUN and creatinine is normal. LFTs are normal. Patient's troponin is less than 2.7. His chest x-ray showed question infiltrates. A chest CT was ordered. Will give a L of fluid. Neurologically grossly intact. Patient's lactate was less than 2. Patient given IV fluids. Symptomatic we improved. Blood pressure is 138/53. Will start patient on a dose of doxycycline. If CT scan is grossly negative. Will treat patient for bronchitis. Currently in stable condition. After IV fluid patient's symptomatic knee feels much improved and wants to go home. Patient's case being signed out at the change of shift Differential Diagnosis Differential Diagnoses: The differential diagnosis associated with the presentation includes COPD, CHF, dehydration, electrolyte abnormality, anemia Admission/Observation Consideration of admission/observation: Escalation of care including admission/observation considered Lab Data [facility] Lab Attestation statement: I reviewed the patient's lab results. 03/08/23 18:33 03/08/23 18:33 Labs: Lab Results 03/08/23 03/08/23 03/08/23 Range/Units 18:33 18:33 18:33 WBC 12.4 H (4.8-10.8) X10*3/uL RBC 4.22 L (4.60-5.80) X10*6/uL Hgb 11.1 L (14.0-18.0) g/dl Hct 35.1 L (42.0-52.0) % MCV 83.2 (80.0-98.0) fL MCH 26.3 L (27.0-33.0) pg MCHC 31.6 (31.0-36.0) g/dl RDW 16.0 (11.0-16.0) % Plt Count 549 H (160-400) X10*3/uL MPV 8.8 L (9.4-12.4) fL Immature Gran % (Auto) 0.4 (0.0-0.4) % Neut % (Auto) 89.1 H (45-73) % Lymph % (Auto) 8.2 L (20-40) % [place] % (Auto) 1.9 L (2-11) % Eos % (Auto) 0.0 (0-4) % Baso % (Auto) 0.4 (0-2) % Lymph # (Auto) 1.0 L (1.2-4.9) X10*3/uL [place] # (Auto) 0.2 (0.1-1.2) X10*3/uL Eos # (Auto) 0.0 (0.0-0.4) X10*3/uL Baso # (Auto) 0.1 (0.0-0.2) X10*3/uL Abs Immat Gran (auto) 0.05 H (0.00-0.03) X10*3/uL Absolute Neuts (auto) 11.0 H (2.0-8.3) x10*3/uL Absolute Nucleated RBC 0.000 (0.0-0.012) X10*3/uL Nucleated RBC % (auto) 0.0 (0.0-0.2) /100WBC Sodium 133 L (135-145) mmol/L Potassium 3.8 (3.3-5.1) mmol/L Chloride 101 (96-108) mmol/L Carbon Dioxide 18 L (22-29) mmol/L Anion Gap 18 (12-20) BUN 5 L (9-16) mg/dL Creatinine 0.76 (0.5-1.4) mg/dL Estim Creat Clear Calc 88.2 Estimated GFR > 60 Random Glucose 192 H (60-115) mg/dL Lactic Acid (0.5-2.0) mmol/L Calcium 9.5 D (8.4-10.2) mg/dL Total Bilirubin 0.8 (0.0-1.0) mg/dL AST 11 (5-37) U/L ALT 6 (0-40) U/L Alkaline Phosphatase 105 (39-117) U/L Troponin I High Sens < 2.7 (<3.5-35.0) ng/L Total Protein 7.7 (6.5-8.0) g/dL Albumin 3.0 L (3.5-5.0) g/dL 03/08/23 Range/Units 18:33 WBC (4.8-10.8) X10*3/uL RBC (4.60-5.80) X10*6/uL Hgb (14.0-18.0) g/dl Hct (42.0-52.0) % MCV (80.0-98.0) fL MCH (27.0-33.0) pg MCHC (31.0-36.0) g/dl RDW (11.0-16.0) % Plt Count (160-400) X10*3/uL MPV (9.4-12.4) fL Immature Gran % (Auto) (0.0-0.4) % Neut % (Auto) (45-73) % Lymph % (Auto) (20-40) % [place] % (Auto) (2-11) % Eos % (Auto) (0-4) % Baso % (Auto) (0-2) % Lymph # (Auto) (1.2-4.9) X10*3/uL [place] # (Auto) (0.1-1.2) X10*3/uL Eos # (Auto) (0.0-0.4) X10*3/uL Baso # (Auto) (0.0-0.2) X10*3/uL Abs Immat Gran (auto) (0.00-0.03) X10*3/uL Absolute Neuts (auto) (2.0-8.3) x10*3/uL Absolute Nucleated RBC (0.0-0.012) X10*3/uL Nucleated RBC % (auto) (0.0-0.2) /100WBC Sodium (135-145) mmol/L Potassium (3.3-5.1) mmol/L Chloride (96-108) mmol/L Carbon Dioxide (22-29) mmol/L Anion Gap (12-20) BUN (9-16) mg/dL Creatinine (0.5-1.4) mg/dL Estim Creat Clear Calc Estimated GFR Random Glucose (60-115) mg/dL Lactic Acid 1.5 (0.5-2.0) mmol/L Calcium (8.4-10.2) mg/dL Total Bilirubin (0.0-1.0) mg/dL AST (5-37) U/L ALT (0-40) U/L Alkaline Phosphatase (39-117) U/L Troponin I High Sens (<3.5-35.0) ng/L Total Protein (6.5-8.0) g/dL Albumin (3.5-5.0) g/dL Independent Interpretation I performed an independent interpretation of an: EKG Interpretation: My interpretation of patient's EKG showed a sinus arrhythmia heart rate approximately 70 AR QRS QT within normal limits is no acute ST segment elevati on. Radiology Impression Discussion of test interpretation with radiology: I have reviewed the radiologist's reading. External Record Review External record reviewed: Inpatient record Chronic Conditions COPD Discharge Plan Discharge Clinical Impression: Bronchitis Patient Disposition: Still a Patient Instructions: Chronic Bronchitis (DC) Prescriptions: New doxycycline hyclate 100 mg tablet 100 mg PO BID 7 Days Qty: 14 0RF No Action guaifenesin 600 mg Tablet Extended Release 12hr 600 mg PO BID levalbuterol HCl [Xopenex Concentrate] 1.25 mg/0.5 mL Solution For Nebulization 1.25 mg inhalation Q2H PRN (Reason: shortness of breath/wheeze) Qty: 30 0RF ipratropium bromide 0.02 % Solution 0.5 mg inhalation Q6H PRN (Reason: shortness of breath or wheezing) Qty: 150 0RF nicotine 21 mg/24 hr Patch 24 Hour 21 mg transdermal DAILY Qty: 28 0RF polyethylene glycol 3350 17 gram Powder In Packet 17 g PO DAILY Qty: 30 0RF lidocaine [Lidocaine Pain Relief] 4 % Adhesive Patch,Medicated 1 patch transdermal DAILY PRN (Reason: rib pain) Qty: 30 0RF Protocol: Apply to: Apply to: ribs prednisone 10 mg tablet See Rx Instructions .ROUTE .COMPLEX Qty: 30 0RF Rx Instructions: 40 mg daily x 3 days 30 mg daily x 3 days 20 mg daily x 3 days 10 mg daily x 3 days olanzapine 10 mg Tablet 10 mg PO BEDTIME psyllium Powder 1 tbsp PO DAILY Rx Instructions: mix into at least 8 oz of water or juice before administering tamsulosin 0.4 mg Capsule 0.4 mg PO DAILY trazodone 100 mg Tablet 100 mg PO BEDTIME PRN (Reason: Insomnia) benzonatate 100 mg Capsule 100 mg PO TID PRN (Reason: Cough) fluticasone propion-salmeterol [Advair Diskus] 500-50 mcg/dose Blister With Device 1 inh INHALATION BID docusate sodium 100 mg Capsule 100 mg PO DAILY PRN (Reason: Constipation) buspirone 7.5 mg Tablet 7.5 mg PO BID folic acid 1 mg Tablet 1 mg PO DAILY gabapentin 100 mg Capsule 100 mg PO BID hydroxyzine HCl 10 mg Tablet 10 mg PO Q24H PRN (Reason: Anxiety) acamprosate 333 mg Tablet,Delayed Release (Dr/Ec) 333 mg PO TID tiotropium bromide 2.5 mcg/actuation Mist 2 puff INHALATION DAILY megestrol 400 mg/10 mL (10 mL) Suspension 200 mg PO BID albuterol sulfate [ProAir HFA] 90 mcg/actuation HFA aerosol inhaler 2 inh inhalation Q4-6H PRN (Reason: Shortness Of Breath Or Wheezing) Referrals: All Nicholas PA [Primary Care Provider] - 03/10/23
[2023-03-08] MEDS: 0.9 % Sodium Chloride 1,000 ML 999 ML IV (21:23)
[2023-03-08 21:42] VITALS: BP 138/53; PULSE 75; RESP 16; TEMP 36.3; O2SAT 100
[2023-03-08 22:27] VITALS: O2SAT 100
[2023-03-08] MEDS: Doxycycline Monohydrate 100 MG CAPSULE PO (23:02)
== END 2023-03-08 23:27 | disposition home or self-care (01) ==
PROVIDERS: Registered Nurse Emergency; Emergency Provider Student in an Organized Health Care Education/Training Program; PCP Physician Assistant Medical
DX: J40 Bronchitis, not specified as acute or chronic (principal); Z87.891 Personal history of nicotine dependence; Z79.899 Other long term (current) drug therapy
CPT/HCPCS: 36415; 71046; 71250; 80053; 83605; 84484; 85025; 87040; 93005; 96360; 96361; 99284

== ENCOUNTER → 2023-03-08 17:53 | Outpatient (BNV) | payer MEDICARE, SELFPAY | PROVIDERS: Emergency Provider Student in an Organized Health Care Education/Training Program; PCP Physician Assistant Medical; Visit Provider Internal Medicine Cardiovascular Disease | DX: I49.3 Ventricular premature depolarization (principal); I49.1 Atrial premature depolarization | CPT/HCPCS: 93010 ==

== ENCOUNTER 2023-04-09 13:53 | Emergency (ER) | payer MEDICARE, BC, SELFPAY ==
--- NOTE | ~2023-04-09 | XR_ITS ---
EXAMINATION: XR ABDOMEN KUB CLINICAL INDICATION: Constipation. COMPARISON: CT scan dated 10/11/2022. TECHNIQUE: AP view of the abdomen. XR/XR KUB FINDINGS/IMPRESSION: Moderate stool is seen throughout the colon and rectal vault, suggesting an element of constipation. There is no evidence of intestinal obstruction or free air. No soft tissue mass or organomegaly is seen. Severe aortoiliac calcification. Mild degenerative changes of the spine.
[2023-04-09 13:57] VITALS: BP 127/70; PULSE 109; O2SAT 99
[2023-04-09 14:00] VITALS: BP 95/54; PULSE 118; RESP 18; TEMP 36.1; O2SAT 100; BMI 22.1
--- NOTE | 2023-04-09 14:45 | PC.NURSE ---
pt refused labs per tech.
--- NOTE | 2023-04-09 18:12 | PC.NURSE ---
Patient reports 2 days ago he became constipated and has had a difficult time going to the bathroom. stating my feces is larger than the size of my rectum . When asked when last bm was patient states a few minutes ago. States took a stool softner this am and it just started working.Refused to be changed into hospital gown stating he is covered in stool. States on home 02 at 4liters for copd. Denies sob or chest pain. vss.
[2023-04-09 18:15] VITALS: BP 136/65; PULSE 78; RESP 18; TEMP 36.7; O2SAT 96
--- NOTE | 2023-04-09 18:49 | PC.NURSE ---
Patient with vape pen in pocket, patient reminded of no smoking policy
--- NOTE | 2023-04-09 18:52 | MHC.EDTECH ---
Patient refused to address change clerk into a hospital gown despite having soiled himself with feces. Patient also refused to have his lab work drawn. Ysabel Davies
--- NOTE | 2023-04-09 19:06 | ED.ABDPAIN ---
HPI - Abdominal Pain General Chief Complaint: Abdominal Pain Stated Complaint: CONSTIPATION FOR 2 DAYS PER EMS Time Seen by Provider: 04/09/23 18:18 Source: patient Mode of arrival: EMS Limitations: no limitations History of Present Illness HPI narrative: Pain history of chronic constipation on home oxygen not moving his bowels last few days only passing small amount of stool does have history of COPD and anxiety taking stool softener not working Related Data Home Medications Medication Instructions Recorded Confirmed acamprosate 333 mg tablet,delayed 333 mg PO TID 01/25/22 06/10/22 release benzonatate 100 mg capsule 100 mg PO TID PRN Cough 01/25/22 06/10/22 buspirone 7.5 mg tablet 7.5 mg PO BID 01/25/22 06/10/22 docusate sodium 100 mg capsule 100 mg PO DAILY PRN Constipation 01/25/22 06/10/22 fluticasone 500 mcg-salmeterol 50 1 inh inhalation BID 01/25/22 06/10/22 mcg/dose blistr powdr for inhalation (Advair Diskus) folic acid 1 mg tablet 1 mg PO DAILY 01/25/22 06/10/22 gabapentin 100 mg capsule 100 mg PO BID 01/25/22 06/10/22 hydroxyzine HCl 10 mg tablet 10 mg PO Q24H PRN Anxiety 01/25/22 06/10/22 megestrol 400 mg/10 mL (10 mL) 200 mg PO BID 01/25/22 06/10/22 oral suspension olanzapine 10 mg tablet 10 mg PO BEDTIME 01/25/22 06/10/22 psyllium 1 tbsp PO DAILY 01/25/22 06/10/22 tamsulosin 0.4 mg capsule 0.4 mg PO DAILY 01/25/22 06/10/22 tiotropium bromide 2.5 2 puff inhalation DAILY 01/25/22 06/10/22 mcg/actuation mist for inhalation trazodone 100 mg tablet 100 mg PO BEDTIME PRN Insomnia 01/25/22 06/10/22 guaifenesin 600 mg tablet, 600 mg PO BID 05/13/22 06/10/22 extended release 12 hr albuterol sulfate 90 mcg/actuation 2 inh inhalation Q4-6H PRN 06/11/22 06/11/22 aerosol inhaler (ProAir HFA) Shortness Of Breath Or Wheezing Previous Rx's Medication Instructions Recorded ipratropium bromide 0.02 % 0.5 mg (2.5 mL) inhalation Q6H PRN 05/25/22 solution for inhalation shortness of breath or wheezing #150 mL levalbuterol HCl 1.25 mg/0.5 mL 1.25 mg (0.5 mL) inhalation Q2H 05/25/22 solution for nebulization (Xopenex PRN shortness of breath/wheeze #30 Concentrate) ea lidocaine 4 % topical patch 1 patch transdermal DAILY PRN rib 05/25/22 (Lidocaine Pain Relief) pain #30 ea nicotine 21 mg/24 hr daily 21 mg transdermal DAILY #28 ea 05/25/22 transdermal patch polyethylene glycol 3350 17 gram 17 g PO DAILY #30 ea 05/25/22 oral powder packet prednisone 10 mg tablet See Rx Instructions .Route 05/25/22 .COMPLEX #30 tabs levofloxacin 500 mg tablet 500 mg PO DAILY #10 tabs 03/08/23 bisacodyl 5 mg tablet,delayed 5 mg PO BEDTIME #20 tabs 04/09/23 release (Dulcolax (bisacodyl)) polyethylene glycol 3350 17 17 g PO DAILY #510 grams 04/09/23 gram/dose oral powder (Miralax) Allergies Allergy/AdvReac Type Severity Reaction Status Date / Time tree and shrub pollen Allergy Mild Rash Verified 06/14/22 15:05 Review of Systems Review of Systems Yes all other systems are reviewed and are negative PMFSH Past Medical History Medical History Acidosis, lactic COPD (chronic obstructive pulmonary disease) COPD (chronic obstructive pulmonary disease) COPD (chronic obstructive pulmonary disease) COPD (chronic obstructive pulmonary disease) Emphysema lung Leukocytosis Pneumonia Pneumothorax Right inguinal hernia Schizophrenia Smoker in home Umbilical hernia Surgical History No pertinent past surgical history Family History Family History Father CAD (coronary artery disease) Social History Social History Household Members: Other Household Members Other:: roommate Housing: Other Housing Other:: hotel Do you presently have visiting nurse or other home services: Yes Unable to assess alcohol history related to: Unknown Alcohol intake: never Patient Tobacco Use Status: Former Tobacco user Tobacco use type: Cigarette Cigarette Packs Per Day: 1 Cigarettes Per Day: 20.0 Smoked in Last 30 Days: Yes e-Cigarette/Vaping Use: Currently Using Second Hand Smoke Exposure: No Use of substances other than those prescribed or required for medical reasons: No Advance Directives: Yes Advance Directives on File: Yes Advance Directives Date on File: 03/22/21 service: Yes Current occupational status: 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 Oriented X3. No acute distress. ENT: Pharynx normal. Oral Mucosa moist Neck: Normal inspection. Neck supple. CVS: Normal heart rate and rhythm. Pulses normal. Respiratory: No respiratory distress. Equal air entry bilateral, Abdomen: Soft and nontender. Bowel sounds are present, no mass palpable, no CVA tenderness rectal: Soft stool in the rectum manual disimpaction done Skin: Skin warm and dry. Normal skin color. Normal skin turgor. Extremities: No lower extremity edema. No calf tenderness Neuro: Oriented X 3. No motor deficit. Medical Decision Making Medical Decision Making MDM Narrative: Patient chronic constipation manual disimpaction patient had a small bowel movement will discharge patient home on MiraLax patient was given Dulcolax and milk of magnesia in the ER no signs of obstruction Medications Administered Discontinued Medications Generic Name Dose Route Start Last Admin Trade Name Freq PRN Reason Stop Dose Admin Bisacodyl 10 mg 04/09/23 19:49 04/09/23 20:06 Bisacodyl 5 Mg Tablet. PO 04/09/23 19:50 10 mg ONCE ONE Administration Magnesium Hydroxide 30 ml 04/09/23 19:49 04/09/23 20:06 Milk Of Magnesia 30 Ml Oral.Susp PO 04/09/23 19:50 30 ml ONCE ONE Administration Discharge Plan Discharge Clinical Impression: Chronic constipation Patient Disposition: Home, Self-Care Instructions: Constipation (ED) Additional Instructions: Take stool softener as advised Follow-up with PCP Prescriptions: New polyethylene glycol 3350 [Miralax] 17 gram/dose powder 17 g PO DAILY Qty: 510 0RF bisacodyl [Dulcolax (bisacodyl)] 5 mg tablet,delayed release (DR/EC) 5 mg PO BEDTIME Qty: 20 0RF No Action guaifenesin 600 mg Tablet Extended Release 12hr 600 mg PO BID levalbuterol HCl [Xopenex Concentrate] 1.25 mg/0.5 mL Solution For Nebulization 1.25 mg inhalation Q2H PRN (Reason: shortness of breath/wheeze) Qty: 30 0RF ipratropium bromide 0.02 % Solution 0.5 mg inhalation Q6H PRN (Reason: shortness of breath or wheezing) Qty: 150 0RF nicotine 21 mg/24 hr Patch 24 Hour 21 mg transdermal DAILY Qty: 28 0RF polyethylene glycol 3350 17 gram Powder In Packet 17 g PO DAILY Qty: 30 0RF lidocaine [Lidocaine Pain Relief] 4 % Adhesive Patch,Medicated 1 patch transdermal DAILY PRN (Reason: rib pain) Qty: 30 0RF Protocol: Apply to: Apply to: ribs prednisone 10 mg tablet See Rx Instructions .ROUTE .COMPLEX Qty: 30 0RF Rx Instructions: 40 mg daily x 3 days 30 mg daily x 3 days 20 mg daily x 3 days 10 mg daily x 3 days olanzapine 10 mg Tablet 10 mg PO BEDTIME psyllium Powder 1 tbsp PO DAILY Rx Instructions: mix into at least 8 oz of water or juice before administering tamsulosin 0.4 mg Capsule 0.4 mg PO DAILY trazodone 100 mg Tablet 100 mg PO BEDTIME PRN (Reason: Insomnia) benzonatate 100 mg Capsule 100 mg PO TID PRN (Reason: Cough) fluticasone propion-salmeterol [Advair Diskus] 500-50 mcg/dose Blister With Device 1 inh INHALATION BID docusate sodium 100 mg Capsule 100 mg PO DAILY PRN (Reason: Constipation) buspirone 7.5 mg Tablet 7.5 mg PO BID folic acid 1 mg Tablet 1 mg PO DAILY gabapentin 100 mg Capsule 100 mg PO BID hydroxyzine HCl 10 mg Tablet 10 mg PO Q24H PRN (Reason: Anxiety) acamprosate 333 mg Tablet,Delayed Release (Dr/Ec) 333 mg PO TID tiotropium bromide 2.5 mcg/actuation Mist 2 puff INHALATION DAILY megestrol 400 mg/10 mL (10 mL) Suspension 200 mg PO BID albuterol sulfate [ProAir HFA] 90 mcg/actuation HFA aerosol inhaler 2 inh inhalation Q4-6H PRN (Reason: Shortness Of Breath Or Wheezing) levofloxacin 500 mg tablet 500 mg PO DAILY Qty: 10 0RF Interventions: ED Discharge Assessment Last Done: 04/09/23 20:28 Discharge Date/Time: 04/09/23 20:28
[2023-04-09 20:00] VITALS: BP 146/58; PULSE 88; RESP 18; TEMP 36.8; O2SAT 100
[2023-04-09] MEDS: bisacodyL 5 MG TABLET.DR 10 MG PO (20:06)
[2023-04-09] MEDS: Milk of Magnesia 30 ML ORAL.SUSP PO (20:06)
== END 2023-04-09 20:28 | disposition home or self-care (01) ==
PROVIDERS: Emergency Provider Internal Medicine
DX: K59.00 Constipation, unspecified (principal); F41.9 Anxiety disorder, unspecified; Z87.891 Personal history of nicotine dependence; Z99.81 Dependence on supplemental oxygen; Z79.899 Other long term (current) drug therapy
CPT/HCPCS: 74018; 99284

== ENCOUNTER 2023-05-03 03:11 | Emergency (ER) | payer MEDICARE, BC, SELFPAY ==
--- NOTE | ~2023-05-03 | XR_ITS ---
EXAMINATION: XR ABDOMEN KUB CLINICAL INDICATION: Constipation COMPARISON: KUB radiograph from 04/09/2023 TECHNIQUE: AP view of the abdomen. FINDINGS: No dilated loops of bowel to suggest obstruction. Moderate fecal loading throughout the colon greatest in its ascending and descending aspects. Elevation left hemidiaphragm. Degenerative arthropathy of the thoracolumbar sacral spine. Prominent atherosclerotic calcifications greatest along the bilateral common iliac vessels. Soft tissues are unremarkable. XR/XR KUB IMPRESSION: 1. No dilated loops of bowel to suggest obstruction. 2. Moderate fecal loading throughout the colon greatest in its ascending and descending aspects. 3. Elevation left hemidiaphragm.
[2023-05-03 03:19] VITALS: BP 131/67; BP 142/86; PULSE 102; PULSE 115; RESP 18; TEMP 36.9; O2SAT 100; O2SAT 98; BMI 17.6
--- NOTE | 2023-05-03 03:26 | ECG_ITS ---
Test Reason : SOB Blood Pressure : / mmHG Vent. Rate : 106 BPM Atrial Rate : 106 BPM P-R Int : 126 ms QRS Dur : 074 ms QT Int : 350 ms P-R-T Axes : 089 073 083 degrees QTc Int : 464 ms Sinus tachycardia with Premature atrial complexes Nonspecific ST abnormality Abnormal ECG When compared with ECG of 08-MAR-2023 18:13, Premature ventricular complexes are no longer Present Referred By: Generic ED Physician Electronically Signed By:JANIS STUART
--- NOTE | 2023-05-03 03:53 | PC.NURSE ---
pt refusing chest xray. global position system technician made this rn aware. global position system technician made dr rosen aware
--- NOTE | 2023-05-03 04:57 | PC.NURSE ---
pt refusing care at this time. awaiting to be seen by ed provider
--- NOTE | 2023-05-03 06:28 | PC.NURSE ---
at this time pt declining difficulty breathing pt states the only reason I came in is because I cannot defecate. I am not constipated I have issues with the muscles . this rn made dr rosen aware of pt statements
[2023-05-03 06:33] VITALS: BP 127/65; PULSE 80; RESP 17; TEMP 36.9; O2SAT 99
--- NOTE | 2023-05-03 06:59 | ED_ITS ---
HPI - Asthma General Chief Complaint: Dyspnea Stated Complaint: SOB,CONSTIPATION PER EMS Time Seen by Provider: 05/03/23 06:57 Source: patient and old records reviewed Mode of arrival: EMS Limitations: no limitations History of Present Illness HPI Narrative: 67 yo male with hx of COPD, pneumonia, acute resp failure, schizophrenia comes in with c/o constipation x 3 days no n/v no abdominal pain + flatus he states he tried an enema without relief. Denies diet or med changes. He isn't sure why this happened but is has happened before. He wants medicine to help him go. He has tried no other OTC medications. EMS did give neb en route and he states his COPD feels fine - no increased work of breathing, fevers, sputum. MD complaint: other (constipation) Onset (ago): day(s) (3) Severity: moderate Context: none known Associated symptoms: none Asthma History: adult onset Treatments Prior to Arrival: inhaled bronchodilator Related Data Home Medications Medication Instructions Recorded Confirmed acamprosate 333 mg tablet,delayed 333 mg PO TID 01/25/22 06/10/22 release benzonatate 100 mg capsule 100 mg PO TID PRN Cough 01/25/22 06/10/22 buspirone 7.5 mg tablet 7.5 mg PO BID 01/25/22 06/10/22 docusate sodium 100 mg capsule 100 mg PO DAILY PRN Constipation 01/25/22 06/10/22 fluticasone 500 mcg-salmeterol 50 1 inh inhalation BID 01/25/22 06/10/22 mcg/dose blistr powdr for inhalation (Advair Diskus) folic acid 1 mg tablet 1 mg PO DAILY 01/25/22 06/10/22 gabapentin 100 mg capsule 100 mg PO BID 01/25/22 06/10/22 hydroxyzine HCl 10 mg tablet 10 mg PO Q24H PRN Anxiety 01/25/22 06/10/22 megestrol 400 mg/10 mL (10 mL) 200 mg PO BID 01/25/22 06/10/22 oral suspension olanzapine 10 mg tablet 10 mg PO BEDTIME 01/25/22 06/10/22 psyllium 1 tbsp PO DAILY 01/25/22 06/10/22 tamsulosin 0.4 mg capsule 0.4 mg PO DAILY 01/25/22 06/10/22 tiotropium bromide 2.5 2 puff inhalation DAILY 01/25/22 06/10/22 mcg/actuation mist for inhalation trazodone 100 mg tablet 100 mg PO BEDTIME PRN Insomnia 01/25/22 06/10/22 guaifenesin 600 mg tablet, 600 mg PO BID 05/13/22 06/10/22 extended release 12 hr albuterol sulfate 90 mcg/actuation 2 inh inhalation Q4-6H PRN 06/11/22 06/11/22 aerosol inhaler (ProAir HFA) Shortness Of Breath Or Wheezing Previous Rx's Medication Instructions Recorded ipratropium bromide 0.02 % 0.5 mg (2.5 mL) inhalation Q6H PRN 05/25/22 solution for inhalation shortness of breath or wheezing #150 mL levalbuterol HCl 1.25 mg/0.5 mL 1.25 mg (0.5 mL) inhalation Q2H 05/25/22 solution for nebulization (Xopenex PRN shortness of breath/wheeze #30 Concentrate) ea lidocaine 4 % topical patch 1 patch transdermal DAILY PRN rib 05/25/22 (Lidocaine Pain Relief) pain #30 ea nicotine 21 mg/24 hr daily 21 mg transdermal DAILY #28 ea 05/25/22 transdermal patch polyethylene glycol 3350 17 gram 17 g PO DAILY #30 ea 05/25/22 oral powder packet prednisone 10 mg tablet See Rx Instructions .Route 05/25/22 .COMPLEX #30 tabs levofloxacin 500 mg tablet 500 mg PO DAILY #10 tabs 03/08/23 bisacodyl 5 mg tablet,delayed 5 mg PO BEDTIME #20 tabs 04/09/23 release (Dulcolax (bisacodyl)) polyethylene glycol 3350 17 17 g PO DAILY #510 grams 04/09/23 gram/dose oral powder (Miralax) docusate sodium 100 mg capsule 100 mg PO BID PRN constipation #30 05/03/23 (Colace) caps lactulose 10 gram/15 mL (15 mL) 20 g (30 mL) PO DAILY 5 days #150 05/03/23 oral solution mL sennosides 8.6 mg capsule (senna) 8.6 mg PO BEDTIME #30 caps 05/03/23 Allergies Allergy/AdvReac Type Severity Reaction Status Date / Time tree and shrub pollen Allergy Mild Rash Verified 06/14/22 15:05 Review of Systems Review of Systems: Constitutional : No Weight loss, No Fever, No Chills ENT/Mouth : No sore throat, No Rhinorrhea Eyes: No Swelling, No Redness Cardiovascular : No Chest Pain, No SOB, NoEdema Respiratory : No Cough, No Sputum, No Wheezing Gastrointestinal : no Nausea, no Vomiting, no Diarrhea, no abdominal Pain, No Hematochezia, No Melena, pos constipation Genitourinary : No Dysuria, No Urinary Frequency, No Hematuria, No Urgency Musculoskeletal : No joint pain, No Myalgias, No Joint Swelling Skin : No Skin Lesions, No rash Neuro : No Weakness, No Numbness, No Dizziness, No Headache Psych : No Anxiety/Panic, No Depression Heme/Lymph: No Bruising, No Lymphadenopathy Endocrine : No Polyuria, No Polydipsia All other systems reviewed and are negative. [facility] Past Medical History Attestation statement: The following information was validated with the patient. Source: old records reviewed Medical History Acidosis, lactic COPD (chronic obstructive pulmonary disease) COPD (chronic obstructive pulmonary disease) COPD (chronic obstructive pulmonary disease) COPD (chronic obstructive pulmonary disease) Emphysema lung Leukocytosis Pneumonia Pneumothorax Right inguinal hernia Schizophrenia Smoker in home Umbilical hernia Surgical History No pertinent past surgical history Family History Family History Father CAD (coronary artery disease) Social History Social History Household Members: Other Household Members Other:: roommate Housing: Other Housing Other:: hotel Do you presently have visiting nurse or other home services: Yes Unable to assess alcohol history related to: Unknown Alcohol intake: never Patient Tobacco Use Status: Former Tobacco user Tobacco use type: Cigarette Cigarette Packs Per Day: 1 Cigarettes Per Day: 20.0 Smoked in Last 30 Days: Yes e-Cigarette/Vaping Use: Currently Using Second Hand Smoke Exposure: No Use of substances other than those prescribed or required for medical reasons: No Advance Directives: Yes Advance Directives on File: Yes Advance Directives Date on File: 03/22/21 service: Yes 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 Oriented X3. No acute distress. Eyes: Pupils equal, round and reactive to light. ENT: Pharynx normal. Neck: Normal inspection. Neck supple. CVS: Normal heart rate and rhythm. Pulses normal. Respiratory: No respiratory distress. Breath sounds diminished Abdomen: Soft and nontender. Skin: Skin warm and dry. Normal skin color. Normal skin turgor. Extremities: No lower extremity edema. No calf ttp Neuro: Oriented X 3. No motor deficit. No sensory deficit. Medications Administered Discontinued Medications Generic Name Dose Route Start Last Admin Trade Name Taiwoq PRN Reason Stop Dose Admin Lactulose 20 gm 05/03/23 07:05 05/03/23 08:03 Lactulose 20 Gm/30 Ml Solution PO 05/03/23 07:06 20 gm ONCE ONE Administration Sodium Biphosphate/Sodium Phosphate 133 ml 05/03/23 07:05 05/03/23 08:03 Sodium Phosphate,[place]-Dibasic 133 Ml Enema NE 05/03/23 07:06 133 ml ONCE ONE Administration Medical Decision Making Medical Decision Making MDM Narrative: 67 yo male with hx of COPD, pneumonia, acute resp failure, schizophrenia comes in with c/o constipation x 3 days no n/v no abdominal pain + flatus his abdomen is benign he is hungry and tolerating PO doubt SBO. His breathing is stable and at baseline for patient - hx of COPD and I know him well as a patient. At this time I have ordered KUB, lactulose and enema. Suspect constipation, no pain to suggest obstruction or infection. Differential Diagnosis Differential Diagnoses: The differential diagnosis associated with the presentation includes constipation, bronchospasm Admission/Observation Consideration of admission/observation: Escalation of care including admission/observation considered not toxic, stable VS can go home with bowel regimen Independent Interpretation I performed an independent interpretation of an: EKG and Plain X-Ray (no obstruction) Interpretation: Rate: 106 Rhythm: sinus tachycardia [place]: normal Normal P waves. Normal AMGDY. Normal QRS complex. ST T wave : normal no CONCHIS qTC: normal prior studies: no acute ischemia The study has been interpreted contemporaneously by me. . Radiology Impression Discussion of test interpretation with radiology: I have reviewed the radiologist's reading. External Record Review External record reviewed: Inpatient record Prescription Management I considered prescription management with: Other (stool regimen) Social Determinants Patient?s care significantly limited by Social Determinants of Health including: Problems related to primary support group Discharge Plan Discharge Clinical Impression: Acute constipation Patient Disposition: Home, Self-Care Instructions: Constipation (ED) Additional Instructions: stay hydrated, drink plenty of fluids, take the prescriptions as prescribed return for no improvement, vomiting, pain, fevers, inability to pass gas (fart) Prescriptions: New docusate sodium [Colace] 100 mg capsule 100 mg PO BID PRN (Reason: constipation) Qty: 30 0RF senna 8.6 mg capsule 8.6 mg PO BEDTIME Qty: 30 0RF lactulose 10 gram/15 mL (15 mL) solution 20 g PO DAILY 5 Days Qty: 150 0RF No Action guaifenesin 600 mg Tablet Extended Release 12hr 600 mg PO BID levalbuterol HCl [Xopenex Concentrate] 1.25 mg/0.5 mL Solution For Nebulization 1.25 mg inhalation Q2H PRN (Reason: shortness of breath/wheeze) Qty: 30 0RF ipratropium bromide 0.02 % Solution 0.5 mg inhalation Q6H PRN (Reason: shortness of breath or wheezing) Qty: 150 0RF nicotine 21 mg/24 hr Patch 24 Hour 21 mg transdermal DAILY Qty: 28 0RF polyethylene glycol 3350 17 gram Powder In Packet 17 g PO DAILY Qty: 30 0RF lidocaine [Lidocaine Pain Relief] 4 % Adhesive Patch,Medicated 1 patch transdermal DAILY PRN (Reason: rib pain) Qty: 30 0RF Protocol: Apply to: Apply to: ribs prednisone 10 mg tablet See Rx Instructions .ROUTE .COMPLEX Qty: 30 0RF Rx Instructions: 40 mg daily x 3 days 30 mg daily x 3 days 20 mg daily x 3 days 10 mg daily x 3 days olanzapine 10 mg Tablet 10 mg PO BEDTIME psyllium Powder 1 tbsp PO DAILY Rx Instructions: mix into at least 8 oz of water or juice before administering tamsulosin 0.4 mg Capsule 0.4 mg PO DAILY trazodone 100 mg Tablet 100 mg PO BEDTIME PRN (Reason: Insomnia) benzonatate 100 mg Capsule 100 mg PO TID PRN (Reason: Cough) fluticasone propion-salmeterol [Advair Diskus] 500-50 mcg/dose Blister With Device 1 inh INHALATION BID docusate sodium 100 mg Capsule 100 mg PO DAILY PRN (Reason: Constipation) buspirone 7.5 mg Tablet 7.5 mg PO BID folic acid 1 mg Tablet 1 mg PO DAILY gabapentin 100 mg Capsule 100 mg PO BID hydroxyzine HCl 10 mg Tablet 10 mg PO Q24H PRN (Reason: Anxiety) acamprosate 333 mg Tablet,Delayed Release (Dr/Ec) 333 mg PO TID tiotropium bromide 2.5 mcg/actuation Mist 2 puff INHALATION DAILY megestrol 400 mg/10 mL (10 mL) Suspension 200 mg PO BID albuterol sulfate [ProAir HFA] 90 mcg/actuation HFA aerosol inhaler 2 inh inhalation Q4-6H PRN (Reason: Shortness Of Breath Or Wheezing) levofloxacin 500 mg tablet 500 mg PO DAILY Qty: 10 0RF polyethylene glycol 3350 [Miralax] 17 gram/dose powder 17 g PO DAILY Qty: 510 0RF bisacodyl [Dulcolax (bisacodyl)] 5 mg tablet,delayed release (DR/EC) 5 mg PO BEDTIME Qty: 20 0RF
[2023-05-03] MEDS: Sodium Phosphate,Mono-Dibasic 133 ML ENEMA PR (08:03)
[2023-05-03] MEDS: Lactulose 20 GM/30 ML SOLUTION PO (08:03)
--- NOTE | 2023-05-03 08:48 | PC.NURSE ---
Pt given fleet enema per order. pt was advised to hold in fluid as long as possible but he immediately went to commode and tried to have bowel movement. requesting another enema. education given.
--- NOTE | 2023-05-03 11:37 | PC.NURSE ---
Pt sent home with enema in [facility] bus to [facility] on [address].
== END 2023-05-03 11:38 | disposition home or self-care (01) ==
PROVIDERS: Emergency Provider Emergency Medicine
DX: K59.00 Constipation, unspecified (principal); R06.02 Shortness of breath; Z79.899 Other long term (current) drug therapy; Z87.891 Personal history of nicotine dependence
CPT/HCPCS: 74018; 93005; 99284

== ENCOUNTER 2023-08-15 14:56 | Emergency (ER) | payer OTHER, SELFPAY ==
[2023-08-15] VITALS (7 sets, daily range): BP systolic 113–137; BP diastolic 54–68; PULSE 102–116; RESP 17–22; TEMP 36.7–37.1; O2SAT 94–100; BMI 17.2
--- NOTE | ~2023-08-15 | XR_ITS ---
EXAMINATION: XR CHEST CLINICAL INFORMATION: Shortness of breath COMPARISON: None available. TECHNIQUE: Frontal view of the chest was obtained. FINDINGS: Heart and mediastinum within normal limits. Underlying hyperinflation. Right lung is clear. Persistent unchanged left hemithorax volume loss, elevated left hemidiaphragm, left upper lobe retraction, consolidation and cavitation. Diffuse demineralization. XR/XR chest 1V IMPRESSION: No significant change underlying emphysema and chronic appearing cavitary consolidative findings left upper lobe.
--- NOTE | ~2023-08-15 | CT_ITS ---
EXAMINATION: CT CHEST WITH CONTRAST CLINICAL INFORMATION: Dyspnea, cough and wheezing COMPARISON: 03/08/2023 and 05/17/2022 TECHNIQUE: Multidetector volumetric CT imaging of the chest was obtained after the administration of 65 mL of Omnipaque 350 intravenous contrast without immediate adverse reactions. Axial MIP volume rendering provided. Sagittal and coronal reformatted images were obtained. This CT examination was performed using dose optimization techniques as appropriate, variously including the following: *Automated exposure control *Adjustment of mA and/or kV according to patient size (this includes techniques or standardized protocols for targeted exams where dose is matched to indication/reason for exam; i.e. extremities or head) *Use of iterative reconstruction technique DLP: 270 mGy-cm FINDINGS: LUNGS/PLEURA: Moderate to severe emphysema. Again seen is a large thick-walled cavity in the left upper lobe with surrounding pleural thickening, parenchymal opacity, architectural distortion and varicoid and cystic bronchiectasis, with accompanying pleural-parenchymal scarring and pleural calcifications along the superior lateral aspects of the cavity. There is upward retraction of the left hilum and hyperexpansion of the left lower lobe in response to the volume loss. Decreased micronodular in tree-in-bud nodular opacities in the right middle lobe. There are a few stable 4 mm nodules in the lateral segment and in the lateral basal segment of the right lower lobe, as shown on the corey images, unchanged since April 2022. No pleural effusion or pneumothorax. MEDIASTINUM/JEFF: Normal heart size. No pericardial effusion. Coronary calcifications. No mediastinal or hilar lymphadenopathy. Imaged thyroid gland unremarkable. CHEST WALL/AXILLA: No lymphadenopathy. UPPER ABDOMEN: Moderate constipation. OSSEOUS STRUCTURES: Chronic resolved changes of the lateral left fifth rib likely related to chronic inflammation. Stable bone island in the lateral seventh rib. CT/CT chest w IV con IMPRESSION: * Moderate to severe emphysema. * Stable large thick-walled cavity in the left upper lobe with surrounding pleural thickening, parenchymal scarring, varicoid and cystic bronchiectasis. * Decreased micronodular and tree-in-bud nodular opacities in the right middle lobe. * No new or suspicious pulmonary nodules. Fleischner guidelines were followed.
--- NOTE | 2023-08-15 15:10 | ECG_ITS ---
Test Reason : SOB Blood Pressure : / mmHG Vent. Rate : 108 BPM Atrial Rate : 108 BPM P-R Int : 128 ms QRS Dur : 078 ms QT Int : 330 ms P-R-T Axes : 089 077 084 degrees QTc Int : 442 ms Sinus tachycardia Otherwise normal ECG When compared with ECG of 03-MAY-2023 03:32, Premature atrial complexes are no longer Present Referred By: Frankie Childs Electronically Signed By:CRYSTAL NARVAEZ MD
[2023-08-15] MEDS: Albuterol Sulfate 2.5 MG, Albuterol/Iprat 2.5/0.5MG 3 ML 3 ML INHALE ×2 (15:24→21:35)
[2023-08-15] MEDS: methylPREDNISolone Sod Succ 125 MG/2 ML VIAL IVPUSH (15:27)
--- NOTE | 2023-08-15 15:29 | PC.NURSE ---
20gIV placed in the left forearm. this RN was drawing labs off of original access placement - pt yelled at this RN to stop and that i'm not allowed to obtain labs at this time. pt refusing labs at this time. tech notified and states they will try again shortly. medication administered per provider order. pt receiving neb treatment from RT at this time. respirations even/unlabored. call mcgraw placed within reach.
--- NOTE | 2023-08-15 15:53 | PC.NURSE ---
pt also refused for labs to be drawn by tech. doctor roman notified and aware at this time.
[2023-08-15 16:01] LABS: Troponin-I High Sensitivity < 2.7 ng/L (<3.5-35.0)
[2023-08-15 16:27] LABS: Influenza A PCR NEGATIVE (Negative); Influenza B PCR NEGATIVE (Negative); Resp Syncy Virus RNA Qual PCR NEGATIVE (Negative); SARS COV2 PCR INHOUSE NEGATIVE (Negative)
--- NOTE | 2023-08-15 16:29 | ED.SOB ---
HPI - SOB/Dyspnea General Chief Complaint: Dyspnea Stated Complaint: SOB,92% ON HOME O2,DUONEB GIVEN PER EMS Time Seen by Provider: 08/15/23 14:58 Source: patient and EMS Mode of arrival: EMS Limitations: no limitations History of Present Illness HPI Narrative: patient lives in a hotel, he is on 4L NC at baseline, he is known well to the ED presents with increasing shortness of breath MD elicited complaint: shortness of breath and cough Pertinent past history: COPD Related Data Home Medications Medication Instructions Recorded Confirmed acamprosate 333 mg tablet,delayed 333 mg PO TID 01/25/22 06/10/22 release benzonatate 100 mg capsule 100 mg PO TID PRN Cough 01/25/22 06/10/22 buspirone 7.5 mg tablet 7.5 mg PO BID 01/25/22 06/10/22 docusate sodium 100 mg capsule 100 mg PO DAILY PRN Constipation 01/25/22 06/10/22 fluticasone 500 mcg-salmeterol 50 1 inh inhalation BID 01/25/22 06/10/22 mcg/dose blistr powdr for inhalation (Advair Diskus) folic acid 1 mg tablet 1 mg PO DAILY 01/25/22 06/10/22 gabapentin 100 mg capsule 100 mg PO BID 01/25/22 06/10/22 hydroxyzine HCl 10 mg tablet 10 mg PO Q24H PRN Anxiety 01/25/22 06/10/22 megestrol 400 mg/10 mL (10 mL) 200 mg PO BID 01/25/22 06/10/22 oral suspension olanzapine 10 mg tablet 10 mg PO BEDTIME 01/25/22 06/10/22 psyllium 1 tbsp PO DAILY 01/25/22 06/10/22 tamsulosin 0.4 mg capsule 0.4 mg PO DAILY 01/25/22 06/10/22 tiotropium bromide 2.5 2 puff inhalation DAILY 01/25/22 06/10/22 mcg/actuation mist for inhalation trazodone 100 mg tablet 100 mg PO BEDTIME PRN Insomnia 01/25/22 06/10/22 guaifenesin 600 mg tablet, 600 mg PO BID 05/13/22 06/10/22 extended release 12 hr albuterol sulfate 90 mcg/actuation 2 inh inhalation Q4-6H PRN 06/11/22 06/11/22 aerosol inhaler (ProAir HFA) Shortness Of Breath Or Wheezing Previous Rx's Medication Instructions Recorded ipratropium bromide 0.02 % 0.5 mg (2.5 mL) inhalation Q6H PRN 05/25/22 solution for inhalation shortness of breath or wheezing #150 mL levalbuterol HCl 1.25 mg/0.5 mL 1.25 mg (0.5 mL) inhalation Q2H 05/25/22 solution for nebulization (Xopenex PRN shortness of breath/wheeze #30 Concentrate) ea lidocaine 4 % topical patch 1 patch transdermal DAILY PRN rib 05/25/22 (Lidocaine Pain Relief) pain #30 ea nicotine 21 mg/24 hr daily 21 mg transdermal DAILY #28 ea 05/25/22 transdermal patch polyethylene glycol 3350 17 gram 17 g PO DAILY #30 ea 05/25/22 oral powder packet prednisone 10 mg tablet See Rx Instructions .Route 05/25/22 .COMPLEX #30 tabs levofloxacin 500 mg tablet 500 mg PO DAILY #10 tabs 03/08/23 bisacodyl 5 mg tablet,delayed 5 mg PO BEDTIME #20 tabs 04/09/23 release (Dulcolax (bisacodyl)) polyethylene glycol 3350 17 17 g PO DAILY #510 grams 04/09/23 gram/dose oral powder (Miralax) docusate sodium 100 mg capsule 100 mg PO BID PRN constipation #30 05/03/23 (Colace) caps lactulose 10 gram/15 mL (15 mL) 20 g (30 mL) PO DAILY 5 days #150 05/03/23 oral solution mL sennosides 8.6 mg capsule (senna) 8.6 mg PO BEDTIME #30 caps 05/03/23 Allergies Allergy/AdvReac Type Severity Reaction Status Date / Time tree and shrub pollen Allergy Mild Rash Verified 08/15/23 15:03 Review of Systems Review of Systems: Yes all other systems are reviewed and are negative Neurologic: Denies Sensory deficit (Neuro) [facility] Past Medical History Medical History COPD (chronic obstructive pulmonary disease) Acidosis, lactic Leukocytosis Smoker in home Emphysema lung COPD (chronic obstructive pulmonary disease) Schizophrenia Right inguinal hernia Pneumonia Umbilical hernia COPD (chronic obstructive pulmonary disease) Pneumothorax COPD (chronic obstructive pulmonary disease) Surgical History No pertinent past surgical history Family History Family History Father CAD (coronary artery disease) Social History Social History Household Members: Other Household Members Other:: roommate Housing: Other Housing Other:: hotel Do you presently have visiting nurse or other home services: Yes Unable to assess alcohol history related to: Unknown Alcohol intake: current Alcohol intake frequency: a few times a month Alcohol type: beer Comment: refuses alarm Patient Tobacco Use Status: Former Tobacco user Tobacco use type: Cigarette Cigarette Packs Per Day: 1 Cigarettes Per Day: 20.0 Smoked in Last 30 Days: Yes e-Cigarette/Vaping Use: Currently Using Second Hand Smoke Exposure: No Use of substances other than those prescribed or required for medical reasons: No Advance Directives Date on File: 03/22/21 service: Yes Current occupational status: 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 Physical Exam Vital Signs: Vital Signs: Last Vital Signs Temp 98.3 F 08/15/23 15:10 Pulse 111 H 08/15/23 15:24 Resp 18 08/15/23 15:24 BP 125/55 L 08/15/23 15:10 Pulse Ox 100 08/15/23 15:10 O2 Del Method Room Air 08/15/23 15:10 BMI result Body Mass Index 17.2 Const: Other: frail elderly male short of breath Orientation/consciousness: oriented to person Limitations: no limitations HEENT: Head: Yes normal to inspection Ears: external ears normal General nose exam: Normal external nose present Mouth: Normal oral and palatal mucosa present and oropharynx normal Throat: Yes posterior oropharynx normal Eyes: General: appearance normal, both eyes and all related structures Neck: Other: supple Neck: Yes normal visual inspection Chest: Chest palpation & inspection: normal inspection of the chest Resp: Other: distant, minimal BS Cardio: Jugular venous distension: no JVD Rate: regular rate Rhythm: regular rhythm Heart sounds: S1 normal heart sound present and S2 normal heart sound present GI: Inspection: Yes normal to inspection Palpation (GI): Soft to palpation, nontender and No hepatosplenomegaly present Auscultation: normal bowel sounds : General: Yes no CVA tenderness Back/Spine/Pelvis: Back: no CVA tenderness Skin: General skin exam: no rashes or lesions noted Neuro: General: oriented to person Cranial nerves: Yes CN's II-XII intact bilaterally Motor exam (neuro): 5/5 motor strength present throughout Sensory Exam: No Sensory deficit (Neuro) Extrem: General: Yes normal to inspection Psych: Other: angry affect Course Reevaluation(s) Reevaluation #1: patient receiving treatments and steroids will be reevaluated by Dr. Valdez Time: 16:32 Medications Administered Discontinued Medications Generic Name Dose Route Start Last Admin Trade Name Freq PRN Reason Stop Dose Admin Albuterol Sulfate 2.5 mg/ 0 mg 08/15/23 15:18 08/15/23 15:24 Albuterol/Ipratropium 3 ml INHALE 08/15/23 15:19 5.5 dose ONCE ONE Administration Methylprednisolone Sodium Succinate 125 mg 08/15/23 15:10 08/15/23 15:27 Methylprednisolone Sod Succ 125 Mg/2 Ml Vial IVPUSH 08/15/23 15:11 125 mg ONCE ONE Administration Medical Decision Making Differential Diagnosis Differential Diagnoses: The differential diagnosis associated with the presentation includes (COPD exacerbation, pneumonia, covid, influenza, rsv were all considered) Admission/Observation Consideration of admission/observation: Escalation of care including admission/observation considered (upon arrival patient was considered for admission) Lab Data Labs: Lab Results 08/15/23 08/15/23 Range/Units 15:22 15:31 Troponin I High Sens < 2.7 (<3.5-35.0) ng/L Influenza Type A (PCR) NEGATIVE (Negative) Influenza Type B (PCR) NEGATIVE (Negative) RSV RNA Qual (PCR) NEGATIVE (Negative) SARS-CoV-2 RNA (RT-PCR) NEGATIVE (Negative) Independent Interpretation I performed an independent interpretation of an: Plain X-Ray (severe chronic lung changes, left upper lobe disease/changes remains stable) Independent Historian Clinical information obtained from an independent historian. History obtained from or confirmed by: EMS External Record Review External record reviewed: Inpatient record and Outpatient record Tests considered The following testing was considered but not selected: CT of chest considered but patient had one a few months ago Prescription Management I considered prescription management with: Antibiotic (no new infiltrate seen on xray) Chronic Conditions Patient?s care impacted by: Other (COPD) Social Determinants Patient?s care significantly limited by Social Determinants of Health including: Inadequate housing and Low income Discharge Plan Discharge Clinical Impression: COPD exacerbation Patient Disposition: Still a Patient Prescriptions: No Action guaifenesin 600 mg Tablet Extended Release 12hr 600 mg PO BID levalbuterol HCl [Xopenex Concentrate] 1.25 mg/0.5 mL Solution For Nebulization 1.25 mg inhalation Q2H PRN (Reason: shortness of breath/wheeze) Qty: 30 0RF ipratropium bromide 0.02 % Solution 0.5 mg inhalation Q6H PRN (Reason: shortness of breath or wheezing) Qty: 150 0RF nicotine 21 mg/24 hr Patch 24 Hour 21 mg transdermal DAILY Qty: 28 0RF polyethylene glycol 3350 17 gram Powder In Packet 17 g PO DAILY Qty: 30 0RF lidocaine [Lidocaine Pain Relief] 4 % Adhesive Patch,Medicated 1 patch transdermal DAILY PRN (Reason: rib pain) Qty: 30 0RF Protocol: Apply to: Apply to: ribs prednisone 10 mg tablet See Rx Instructions .ROUTE .COMPLEX Qty: 30 0RF Rx Instructions: 40 mg daily x 3 days 30 mg daily x 3 days 20 mg daily x 3 days 10 mg daily x 3 days olanzapine 10 mg Tablet 10 mg PO BEDTIME psyllium Powder 1 tbsp PO DAILY Rx Instructions: mix into at least 8 oz of water or juice before administering tamsulosin 0.4 mg Capsule 0.4 mg PO DAILY trazodone 100 mg Tablet 100 mg PO BEDTIME PRN (Reason: Insomnia) benzonatate 100 mg Capsule 100 mg PO TID PRN (Reason: Cough) fluticasone propion-salmeterol [Advair Diskus] 500-50 mcg/dose Blister With Device 1 inh INHALATION BID docusate sodium 100 mg Capsule 100 mg PO DAILY PRN (Reason: Constipation) buspirone 7.5 mg Tablet 7.5 mg PO BID folic acid 1 mg Tablet 1 mg PO DAILY gabapentin 100 mg Capsule 100 mg PO BID hydroxyzine HCl 10 mg Tablet 10 mg PO Q24H PRN (Reason: Anxiety) acamprosate 333 mg Tablet,Delayed Release (Dr/Ec) 333 mg PO TID tiotropium bromide 2.5 mcg/actuation Mist 2 puff INHALATION DAILY megestrol 400 mg/10 mL (10 mL) Suspension 200 mg PO BID albuterol sulfate [ProAir HFA] 90 mcg/actuation HFA aerosol inhaler 2 inh inhalation Q4-6H PRN (Reason: Shortness Of Breath Or Wheezing) levofloxacin 500 mg tablet 500 mg PO DAILY Qty: 10 0RF docusate sodium [Colace] 100 mg capsule 100 mg PO BID PRN (Reason: constipation) Qty: 30 0RF senna 8.6 mg capsule 8.6 mg PO BEDTIME Qty: 30 0RF lactulose 10 gram/15 mL (15 mL) solution 20 g PO DAILY 5 Days Qty: 150 0RF polyethylene glycol 3350 [Miralax] 17 gram/dose powder 17 g PO DAILY Qty: 510 0RF bisacodyl [Dulcolax (bisacodyl)] 5 mg tablet,delayed release (DR/EC) 5 mg PO BEDTIME Qty: 20 0RF
--- NOTE | 2023-08-15 17:50 | PC.NURSE ---
pt resting comfortably in no apparent distress w/ the lights dimmed. respirations even/unlabored. pt states no pain/has no complaints. call mcgraw placed within reach.
--- NOTE | 2023-08-15 19:18 | PC.NURSE ---
vss and up to date at this time. pt displays w/ no sob/wob at this time. provider bedside speaking w/ pt. pt aware of plan of care in regards to d/c at this time.
--- NOTE | 2023-08-15 21:21 | PC.NURSE ---
Pt loaded on to EMS stretcher and once he got to EMS doors stated that he doesn't feel safe at home to take care of himself. Provider José Miguel made aware.
[2023-08-15 22:02] LABS: Basophils Percent Auto 0.1 % (0-2); Hematocrit 32.3 % (42.0-52.0); Imm Gran Abs Auto 0.05 X10*3/uL (0.00-0.03); Imm Gran Pct Auto 0.4 % (0.0-0.4); Lymphocytes Absolute Auto 0.3 X10*3/uL (1.2-4.9); Lymphocytes Percent Auto 2.2 % (20-40); MANUAL DIFF FLAG SCAN; Mean Corpuscular Volume 84.1 fL (80.0-98.0); Mean Platelet Volume 8.3 fL (9.4-12.4); Monocytes Percent Auto 0.3 % (2-11); Neutrophils Absolute Auto 11.4 x10*3/uL (2.0-8.3); Platelet Count 544 X10*3/uL (160-400); Red Blood Count 3.84 X10*6/uL (4.60-5.80); Red Cell Distribution Width 16.7 % (11.0-16.0); SCAN SMEAR FLAG 1; White Blood Count 11.7 X10*3/uL (4.8-10.8)
[2023-08-15 22:03] LABS: Venous Blood Gas Refer to POC result
[2023-08-15 22:05] LABS: VBG Base Excess 0.6 mmol/L; VBG HCO3 24 mmol/L (22-26); VBG pCO2 38 mmHg; VBG pH 7.41 (7.32-7.43); VBG pO2 52 mmHg
[2023-08-15 22:15] LABS: Alanine Aminotransferase 12 U/L (0-40); Albumin Level 2.8 g/dL (3.5-5.0); Alkaline Phosphatase 129 U/L (39-117); Anion Gap 13 (12-20); Aspartate Amino Transferase 17 U/L (5-37); Bilirubin Total 0.4 mg/dL (0.0-1.0); Blood Urea Nitrogen 11 mg/dL (9-16); Calcium 8.4 mg/dL (8.4-10.2); Carbon Dioxide 24 mmol/L (22-29); Chloride 100 mmol/L (96-108); Creatinine Clr Calc Pharmacy 73.3; Estimated Glomerular Filt Rate > 60; Glucose Random 315 mg/dL (60-115); Potassium 3.9 mmol/L (3.3-5.1); Sodium 133 mmol/L (135-145); Total Protein 6.8 g/dL (6.5-8.0)
[2023-08-15 22:44] LABS: SLIDE REVIEW VERIFIED
[2023-08-16] MEDS: iohexoL 350 MG/ML 100 ML INFUS..BTL 65 ML IV (00:16)
[2023-08-16] MEDS: 0.9 % Sodium Chloride 500 ML IV (00:51)
== END 2023-08-16 02:30 | disposition home or self-care (01) ==
PROVIDERS: Internal Medicine; Student in an Organized Health Care Education/Training Program; Emergency Provider Emergency Medicine
DX: J44.1 Chronic obstructive pulmonary disease with (acute) exacerbation (principal); R06.02 Shortness of breath; R05.9 Cough, unspecified; R06.2 Wheezing; R11.2 Nausea with vomiting, unspecified; Z99.81 Dependence on supplemental oxygen; Z79.899 Other long term (current) drug therapy; Z20.822 Contact with and (suspected) exposure to COVID-19; Z20.828 Contact with and (suspected) exposure to other viral communicable diseases
CPT/HCPCS: 0241U; 36415; 71045; 71260; 80053; 82803; 84484; 85025; 93005; 94640; 96361; 96374; 99284; 99285; J2930; Q9967

== ENCOUNTER → 2023-08-15 15:10 | Outpatient (BNV) | payer MEDICARE, BC, SELFPAY | PROVIDERS: Emergency Provider Emergency Medicine; Visit Provider Internal Medicine Cardiovascular Disease | DX: R06.02 Shortness of breath (principal) | CPT/HCPCS: 93010 ==

== ENCOUNTER 2023-09-06 19:15 | Inpatient (IN) | payer OTHER, BC, SELFPAY ==
--- NOTE | ~2023-09-06 | CT_ITS ---
EXAMINATION: CT CHEST WITH CONTRAST CLINICAL INFORMATION: Left-sided infiltrate. COMPARISON: Chest x-ray 09/06/2023 CT chest 08/16/2023 TECHNIQUE: Multidetector volumetric CT imaging of the chest was obtained after the administration of 50 mL of Omnipaque 350 intravenous contrast without immediate adverse reactions. Axial MIP volume rendering provided. Sagittal and coronal reformatted images were obtained. This CT examination was performed using dose optimization techniques as appropriate, variously including the following: *Automated exposure control *Adjustment of mA and/or kV according to patient size (this includes techniques or standardized protocols for targeted exams where dose is matched to indication/reason for exam; i.e. extremities or head) *Use of iterative reconstruction technique DLP: 219 mGy-cm FINDINGS: COMPUTER HELP DESK SPECIALIST: Hyperinflated lungs. LUNGS: There is diffuse centrilobular and paraseptal emphysema with large bulla or cavity with septations in the left upper lobe. There is irregular in there wall and a thick outer wall. Just inferior to it is a thick parenchymal air bronchogram likely consolidation. Patchy airspace opacities seen in left lower lobe corresponding to the chest x-ray abnormality likely infiltrate the right lung is expanded with patchy new opacity in right middle lobe likely infiltrate or mass. MEDIASTINUM: Thyroid lobes are symmetrical and normal. The central trachea and the bronchi are widely patent. Heart size and the great vessels are normal caliber. There is mild coronary artery calcifications. No pericardial effusion seen. There are small shotty precarinal and paratracheal lymph nodes with short axis measurement 6 mm. PLEURA: There is left apical and basilar pleural thickening AXILLA: No lymphadenopathy. UPPER ABDOMEN: Visualized liver, spleen, pancreas and bilateral adrenal glands are unremarkable. There is large amount of stool seen in colon. OSSEOUS STRUCTURES: No aggressive lytic or sclerotic process seen. CT/CT chest w IV con IMPRESSION: Emphysema with large bulla/cavity with septations in the left upper lobe. There is adjacent parenchymal air bronchogram in left midlung likely consolidation/infiltrate. In the left lower lobe patchy airspace infiltrate. There is a new patchy density seen in the right upper lobe lateral segment compared to CT chest 08/15/2023. Mild left apical and basilar pleural thickening. Fleischner guidelines were followed.
--- NOTE | ~2023-09-06 | US_ITS ---
EXAMINATION: Scrotal ultrasound CLINICAL INFORMATION: Scrotal cyst COMPARISON: Previous CT scans of the abdomen and pelvis most recent September 2022 TECHNIQUE: Grayscale and color imaging of the testicles FINDINGS: Right: Right testicle is larger than the left and measures 3.8 x 2.1 x 3.3 cm, volume 8 mL. The left testicle is hypoechoic compared to the other testicles and is slightly heterogeneous in echotexture. There is significant decreased arterial and venous flow in the right testicle compared to the other testicles. There are small calcifications in the right testicle. No small right epididymal head cyst measuring 6 x 6 x 5 mm. The right epididymis is otherwise normal. There is no right hydrocele or varicocele. There appears to be an accessory testicle in the midline between the right and left testicles, favored to originate on the right based on cine transverse images series 2. This measures 3.2 x 1.6 x 2.6 cm, volume 7 mL. This has normal echotexture. No focal lesion. This has normal flow. Left: Left testicle measures 3.1 x 1.5 x 2.6 cm, volume 6.3 mL. Left testicle echotexture is normal. There are small calcifications. No other focal lesion. Arterial and venous flow is documented to the left testicle and is normal. There is a complex cyst with multiple septations seen adjacent to the left epididymis probably representing an epididymal complex cyst or septated hydrocele. This measures 2.5 x 2.2 x 1.3 cm. There is no left varicocele. US/US scrotum IMPRESSION: Abnormal right testicle which is enlarged, hypoechoic and slightly heterogeneous in attenuation. This demonstrates decreased flow compared to the other testicles. Differential would include torsion, mass and infectious or inflammatory process. Follow-up nuclear medicine scrotal scan should be considered to exclude torsion. Small bilateral testicular calcifications. Accessory testicle as described above, favored to originate on the right. Complex multiloculated cyst in the left scrotum measuring 2.5 x 2.2 x 1.3 cm. Differential would include an epididymal cyst and loculated complex hydrocele. Findings were communicated to Dr. Hugo Andersen by telephone on 09/15/2023 at 3:00 PM
--- NOTE | ~2023-09-06 | NM_ITS ---
Examination: Nuclear testicular scan. CLINICAL INDICATION: Decreased flow on ultrasound scrotum performed earlier today. COMPARISON: Ultrasound scrotum 09/15/2023 at 12:34 PM. TECHNIQUE: Following intravenous administration of 10 mCi of 90 9M technetium 04, perfusion images followed by 1 minute static images up to 10 minutes were obtained. FINDINGS: On initial perfusion images there is no asymmetry seen in the testicular flow. This could be secondary to normal activity in the scrotal wall. No hypervascular flow seen in the right scrotum. On static images there is a progressive decreased activity within the right testes more so on delayed static images. Findings are suspicious of torsion or mass. No focal mass was seen on ultrasound however the right testes is enlarged. NM/NM testicular w flow IMPRESSION: No asymmetric flow seen to the testes on initial perfusion images. On static images there is progressive decrease activity with a defect in right scrotum, especially on the last static images by 10 minutes probably related to torsion or mass. No focal or discrete mass was seen on ultrasound.
--- NOTE | ~2023-09-06 | XR_ITS ---
EXAMINATION: XR CHEST, AP PORTABLE CLINICAL INFORMATION: Shortness of breath. COMPARISON: Prior chest examinations, most recently the CT chest and chest radiographs dated 08/15/2023. TECHNIQUE: 2 AP portable views of the chest were obtained. FINDINGS: The heart, great vessels, pulmonary vasculature and mediastinum are normal. The lungs show no focal infiltrate, effusion or pneumothorax. There is no acute osseous abnormality. There are stable emphysematous changes. A previously noted thick walled left upper lobe cavity is redemonstrated, with diminished opacification. There is a new mild to moderate left base patchy infiltrate. There is a moderate cervicothoracic levoscoliosis. XR/XR chest 1V IMPRESSION: Again, there is sequela of emphysema, with persistent left upper lobe thick-walled cavity. There is a superimposed mild to moderate left base infiltrate now appreciated. Recommend continued radiographic follow-up to clearance.
--- NOTE | ~2023-09-06 | FL_ITS ---
EXAMINATION: Modified Barium Swallows CLINICAL INFORMATION: Dysphagia COMPARISON: None TECHNIQUE: Modified barium swallow was performed under lateral fluoroscopy with patient in standing position. Different consistency of barium was administered by the speech therapist. FINDINGS: There is laryngeal penetration with nectar thick, honey thick, puree, and mixed media. Aspiration was seen within liquids. Severe degenerative spondylosis of the cervical spine present with reversal of the normal lordosis. FLUOROSCOPY TIME: 6 minutes 29 seconds Number of Spot Images: 1 DOSE AREA PRODUCT: 5060 uGy-m2 (microgray-meter squared) FL/FL barium swallow modified IMPRESSION: There is laryngeal penetration with nectar thick, honey thick, puree, and mixed media. Aspiration was seen within liquids. Refer to the full speech therapy report for further clarification This procedure was performed by Donny Lackey PA-C, and supervised by Dr. Garcia
[2023-09-06 19:33] VITALS: BP 112/52; BP 116/56; PULSE 75; PULSE 78; RESP 18; TEMP 36.4; O2SAT 100; BMI 22.9
--- NOTE | 2023-09-06 19:33 | ED_ITS ---
HPI - General Adult General Chief complaint: Behavioral Concerns Stated complaint: Section 12, schizophrenia Time Seen by Provider: 09/06/23 19:32 History of Present Illness HPI narrative: The patient is a 67-year-old male who is a with a history of chronic schizophrenia who was brought to the hospital by ambulance. Apparently the ambulance was arranged to bring the patient to the hospital under a Section 12. The Section 12 indicated poor self-care secondary to disorganization. I was later able to speak with the [place] doctor who filled out the section 12, Dr. Franike Bone, . He told me that the patient lives in a hotel in [place]. There is a visiting nurse who sees the patient frequently. According to the visiting nurse the patient has been doing poorly over the last several weeks. The visiting nurse feels that the patient is eating very little and seems more paranoid. Apparently the patient has lost 15 lb over the last several months. Dr. Bone spoke to the patient on the phone today and felt that the patient was exhibiting confusion, paranoia, impaired judgment and disorganized thinking and then filled out the section 12. The patient denies any specific complaints and is unhappy that he is in the emergency room. Related Data Home Medications Medication Instructions Recorded Confirmed acamprosate 333 mg tablet,delayed 333 mg PO TID 01/25/22 06/10/22 release benzonatate 100 mg capsule 100 mg PO TID PRN Cough 01/25/22 06/10/22 buspirone 7.5 mg tablet 7.5 mg PO BID 01/25/22 06/10/22 docusate sodium 100 mg capsule 100 mg PO DAILY PRN Constipation 01/25/22 06/10/22 fluticasone 500 mcg-salmeterol 50 1 inh inhalation BID 01/25/22 06/10/22 mcg/dose blistr powdr for inhalation (Advair Diskus) folic acid 1 mg tablet 1 mg PO DAILY 01/25/22 06/10/22 gabapentin 100 mg capsule 100 mg PO BID 01/25/22 06/10/22 hydroxyzine HCl 10 mg tablet 10 mg PO Q24H PRN Anxiety 01/25/22 06/10/22 megestrol 400 mg/10 mL (10 mL) 200 mg PO BID 01/25/22 06/10/22 oral suspension olanzapine 10 mg tablet 10 mg PO BEDTIME 01/25/22 06/10/22 psyllium 1 tbsp PO DAILY 01/25/22 06/10/22 tamsulosin 0.4 mg capsule 0.4 mg PO DAILY 01/25/22 06/10/22 tiotropium bromide 2.5 2 puff inhalation DAILY 01/25/22 06/10/22 mcg/actuation mist for inhalation trazodone 100 mg tablet 100 mg PO BEDTIME PRN Insomnia 01/25/22 06/10/22 guaifenesin 600 mg tablet, 600 mg PO BID 05/13/22 06/10/22 extended release 12 hr albuterol sulfate 90 mcg/actuation 2 inh inhalation Q4-6H PRN 06/11/22 06/11/22 aerosol inhaler (ProAir HFA) Shortness Of Breath Or Wheezing Previous Rx's Medication Instructions Recorded ipratropium bromide 0.02 % 0.5 mg (2.5 mL) inhalation Q6H PRN 05/25/22 solution for inhalation shortness of breath or wheezing #150 mL levalbuterol HCl 1.25 mg/0.5 mL 1.25 mg (0.5 mL) inhalation Q2H 05/25/22 solution for nebulization (Xopenex PRN shortness of breath/wheeze #30 Concentrate) ea lidocaine 4 % topical patch 1 patch transdermal DAILY PRN rib 05/25/22 (Lidocaine Pain Relief) pain #30 ea nicotine 21 mg/24 hr daily 21 mg transdermal DAILY #28 ea 05/25/22 transdermal patch polyethylene glycol 3350 17 gram 17 g PO DAILY #30 ea 05/25/22 oral powder packet prednisone 10 mg tablet See Rx Instructions .Route 05/25/22 .COMPLEX #30 tabs levofloxacin 500 mg tablet 500 mg PO DAILY #10 tabs 03/08/23 bisacodyl 5 mg tablet,delayed 5 mg PO BEDTIME #20 tabs 04/09/23 release (Dulcolax (bisacodyl)) polyethylene glycol 3350 17 17 g PO DAILY #510 grams 04/09/23 gram/dose oral powder (Miralax) docusate sodium 100 mg capsule 100 mg PO BID PRN constipation #30 05/03/23 (Colace) caps lactulose 10 gram/15 mL (15 mL) 20 g (30 mL) PO DAILY 5 days #150 05/03/23 oral solution mL sennosides 8.6 mg capsule (senna) 8.6 mg PO BEDTIME #30 caps 05/03/23 prednisone 20 mg tablet 20 mg PO DAILY #5 tabs 08/15/23 Allergies Allergy/AdvReac Type Severity Reaction Status Date / Time tree and shrub pollen Allergy Mild Rash Verified 09/06/23 19:33 Review of Systems 2 Review of Systems: Yes all other systems are reviewed and are negative PMFSH Past Medical History Onset Date is defined in the Problem List Problems that require an onset date and time if occurred within 24 hrs of arrival to the ED Aortic Dissection and Rupture; Neurologic impairment; Cardiopulmonary Arrest; Endotracheal Intubation; Insertion or Replacement of Mechanical Circulatory Assist Device Medical History COPD (chronic obstructive pulmonary disease) Acidosis, lactic Leukocytosis Smoker in home Emphysema lung COPD (chronic obstructive pulmonary disease) Schizophrenia Right inguinal hernia Pneumonia Umbilical hernia COPD (chronic obstructive pulmonary disease) Pneumothorax COPD (chronic obstructive pulmonary disease) Surgical History No pertinent past surgical history Family History Family History Father CAD (coronary artery disease) Social History Social History Household Members: Other Household Members Other:: roommate Housing: Other Housing Other:: hotel Do you presently have visiting nurse or other home services: Yes Unable to assess alcohol history related to: Refusing to respond Alcohol intake: current Alcohol intake frequency: a few times a month Alcohol type: beer Comment: refuses alarm Patient Tobacco Use Status: Former Tobacco user Tobacco use type: Cigarette Cigarette Packs Per Day: 1 Cigarettes Per Day: 20.0 e-Cigarette/Vaping Use: Currently Using Second Hand Smoke Exposure: No Use of substances other than those prescribed or required for medical reasons: Refusing to respond Advance Directives: Yes Advance Directives on File: Yes Advance Directives Date on File: 05/26/22 service: Yes Current occupational status: 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 He did not appear in overt distress. He had some mild increased work of breathing. He was not very engagable and would only say that he wanted to go home. HENMT Other: The face is symmetrical. Airway is clear. Mucous membranes moist. Eyes Other: Pupils are round equal, conjunctivae are clear, extraocular movements intact. Neck Other: No JVD. No neck swelling. Resp Other: The patient has diminished and coarse air entry bilaterally. Diffuse mild rhonchi. Cardio Other: The patient has regular rate and rhythm no murmur GI Other: Abdomen is flat and soft. Skin Other: Skin is pale and dry. Neuro Other: The patient is awake and alert. His face is symmetrical. Eye movements are intact. Speech is without dysarthria or aphasia although his speech content is limited. He moves his extremities symmetrically. He does not seem to have a focal deficit. Extrem Other: No peripheral edema Medications Administered Generic Name Dose Route Start Last Admin Trade Name Freq PRN Reason Stop Dose Admin Buspirone HCl 7.5 mg 09/06/23 21:15 09/06/23 22:23 Buspirone Hcl 5 Mg Tablet PO 7.5 mg BID CUAUHTEMOC Administration Discontinued Medications Generic Name Dose Route Start Last Admin Trade Name Freq PRN Reason Stop Dose Admin Albuterol/Ipratropium 3 ml 09/06/23 19:43 09/06/23 20:14 Albuterol/Iprat 2.5/0.5mg 3 Ml Ampul.Neb INHALE 09/06/23 19:44 Not Given ONCE ONE Ceftriaxone Sodium 1 gm/ 50 mls @ 100 mls/hr 09/06/23 22:17 09/06/23 22:53 Sodium Chloride IV 09/06/23 22:46 Infused ONCE ONE Infusion Azithromycin 500 mg/ Sodium 250 mls @ 125 mls/hr 09/06/23 22:17 09/06/23 23:00 Chloride IV 09/07/23 00:16 125 mls/hr ONCE ONE Administration Sodium Chloride 1,000 mls @ 999 mls/hr 09/06/23 22:30 09/06/23 23:48 Ns IV 09/06/23 23:30 Infused .Q1H1M CUAUHTEMOC Infusion Iohexol 85 ml 09/06/23 22:10 09/06/23 22:10 Iohexol 350 Mg/Ml 100 Ml Infus..Btl IV 09/06/23 22:11 85 ml ONCE ONE Administration Medical Decision Making Medical Decision Making [facility] Narrative: The patient is a 67-year-old male with chronic schizophrenia and chronic lung disease who lives at a hotel in [place]. He gets his care through the [place] system. A visiting nurse has been seeing him. The visiting nurse was concerned that the patient's overall condition has deteriorated recently. There is a description of weight loss and increasing confusion or paranoia. The patient was sent here on a section 12 [facility] who spoke to the patient over the phone. It was not clear the patient had a medical reason for a deterioration or whether he might be having an exacerbation of his chronic schizophrenia. The patient initially was refusing all interactions and interventions. However with time we were able to convince him to let us do 1st an EKG and chest x-ray and later blood work and a CT scan. His chest x-ray looked very concerning for a worsening left-sided abnormality which the CT scan describes an a new infiltrate. There is no clear history of fever but the patient is very poor historian. His white count is normal but his CRP is elevated. I think the patient will need be hospitalized for treatment of this new pneumonia. Lab Data 09/06/23 20:41 09/06/23 20:41 Labs: Lab Results 09/06/23 09/06/23 Range/Units 20:41 21:53 WBC 8.9 (4.8-10.8) X10*3/uL RBC 3.77 L (4.60-5.80) X10*6/uL Hgb 10.1 L (14.0-18.0) g/dl Hct 31.1 L (42.0-52.0) % MCV 82.5 (80.0-98.0) fL MCH 26.8 L (27.0-33.0) pg MCHC 32.5 (31.0-36.0) g/dl RDW 14.6 (11.0-16.0) % Plt Count 577 H (160-400) X10*3/uL MPV 8.3 L (9.4-12.4) fL Immature Gran % (Auto) 0.3 (0.0-0.4) % Neut % (Auto) 90.1 H (45-73) % Lymph % (Auto) 5.9 L (20-40) % Ward % (Auto) 3.6 (2-11) % Eos % (Auto) 0.0 (0-4) % Baso % (Auto) 0.1 (0-2) % Lymph # (Auto) 0.5 L (1.2-4.9) X10*3/uL Ward # (Auto) 0.3 (0.1-1.2) X10*3/uL Eos # (Auto) 0.0 (0.0-0.4) X10*3/uL Baso # (Auto) 0.0 (0.0-0.2) X10*3/uL Abs Immat Gran (auto) 0.03 (0.00-0.03) X10*3/uL Absolute Neuts (auto) 8.0 (2.0-8.3) x10*3/uL Absolute Nucleated RBC 0.000 (0.0-0.012) X10*3/uL Nucleated RBC % (auto) 0.0 (0.0-0.2) /100WBC Smear Tech's Comments VERIFIED Sodium 133 L (135-145) mmol/L Potassium 2.9 L* (3.3-5.1) mmol/L Chloride 99 (96-108) mmol/L Carbon Dioxide 23 (22-29) mmol/L Anion Gap 14 (12-20) BUN 5 L (9-16) mg/dL Creatinine 0.60 (0.5-1.4) mg/dL Estim Creat Clear Calc 115.5 Estimated GFR > 60 Random Glucose 198 H (60-115) mg/dL Lactic Acid 2.4 H* (0.5-2.0) mmol/L Calcium 8.3 L (8.4-10.2) mg/dL Magnesium 2.0 (1.6-2.6) mg/dL Total Bilirubin 0.3 (0.0-1.0) mg/dL Direct Bilirubin 0.2 (0.0-0.5) mg/dL AST 15 (5-37) U/L ALT 8 (0-40) U/L Alkaline Phosphatase 108 (39-117) U/L C-Reactive Protein 12.49 H (< or = 0.50) mg/dL B-Natriuretic Peptide 59 (<100) pg/mL Total Protein 6.5 (6.5-8.0) g/dL Albumin 2.6 L (3.5-5.0) g/dL Ethyl Alcohol < 10 mg/dL Independent Interpretation I performed an independent interpretation of an: EKG Interpretation: EKG at 20:06 shows normal sinus rhythm at 70 beats per minute. It is a normal EKG. Discharge Plan Discharge Clinical Impression: Pneumonia Patient Disposition: Admitted As Inpatient
--- NOTE | 2023-09-06 19:38 | ECG_ITS ---
Test Reason : COPD Blood Pressure : / mmHG Vent. Rate : 070 BPM Atrial Rate : 070 BPM P-R Int : 140 ms QRS Dur : 094 ms QT Int : 422 ms P-R-T Axes : 086 080 090 degrees QTc Int : 455 ms Normal sinus rhythm Normal ECG When compared with ECG of 15-AUG-2023 17:35, Vent. rate has decreased BY 38 BPM Referred By: Dmitriy Whittaker Electronically Signed By:CRYSTAL NARVAEZ MD
--- NOTE | 2023-09-06 19:54 | MHC.EDTECH ---
Patient given dinner tray
--- NOTE | 2023-09-06 20:11 | PC.NURSE ---
pt biba from home on a section 12 by his PCP for confusion, paranoia, impaired judgment, not eating and delusional thinking. pt denies SI/HI at this time. pt has hx of CPOD and asthma, on 4L nasal cannula baseline sating 100%. pt refusing changer over, discharge rn Madhuri aware and provider aware. hyacinth called to bedside to assist in belt changer. pt refusing to answer questions to this RN. 1:1 sitter at bedside.
[2023-09-06 20:47] LABS: Basophils Percent Auto 0.1 % (0-2); Hematocrit 31.1 % (42.0-52.0); Hemoglobin 10.1 g/dl (14.0-18.0); Imm Gran Abs Auto 0.03 X10*3/uL (0.00-0.03); Imm Gran Pct Auto 0.3 % (0.0-0.4); Lymphocytes Absolute Auto 0.5 X10*3/uL (1.2-4.9); Lymphocytes Percent Auto 5.9 % (20-40); MANUAL DIFF FLAG SCAN; Mean Corpuscular HGB Conc 32.5 g/dl (31.0-36.0); Mean Corpuscular Hemoglobin 26.8 pg (27.0-33.0); Mean Corpuscular Volume 82.5 fL (80.0-98.0); Mean Platelet Volume 8.3 fL (9.4-12.4); Monocytes Absolute Auto 0.3 X10*3/uL (0.1-1.2); Monocytes Percent Auto 3.6 % (2-11); Neutrophils Percent Auto 90.1 % (45-73); Red Blood Count 3.77 X10*6/uL (4.60-5.80); Red Cell Distribution Width 14.6 % (11.0-16.0); SCAN SMEAR FLAG 1; White Blood Count 8.9 X10*3/uL (4.8-10.8)
[2023-09-06 20:59] LABS: Ethanol < 10 mg/dL
[2023-09-06 21:04] LABS: Alanine Aminotransferase 8 U/L (0-40); Albumin Level 2.6 g/dL (3.5-5.0); Alkaline Phosphatase 108 U/L (39-117); Anion Gap 14 (12-20); Aspartate Amino Transferase 15 U/L (5-37); Bilirubin Direct 0.2 mg/dL (0.0-0.5); Bilirubin Total 0.3 mg/dL (0.0-1.0); Blood Urea Nitrogen 5 mg/dL (9-16); C Reactive Protein 12.49 mg/dL (< or = 0.50); Calcium 8.3 mg/dL (8.4-10.2); Carbon Dioxide 23 mmol/L (22-29); Chloride 99 mmol/L (96-108); Creatinine Clr Calc Pharmacy 115.5; Estimated Glomerular Filt Rate > 60; Glucose Random 198 mg/dL (60-115); Potassium 2.9 mmol/L (3.3-5.1); Sodium 133 mmol/L (135-145); Total Protein 6.5 g/dL (6.5-8.0)
[2023-09-06 21:05] LABS: Platelet Count 577 X10*3/uL (160-400)
[2023-09-06 21:06] LABS: B Type Natriuretic Peptide 59 pg/mL (<100); SLIDE REVIEW VERIFIED
--- NOTE | 2023-09-06 21:58 | PC.NURSE ---
IV established at this time, 22G right AC. labs obtained and sent. CT at bedside.
[2023-09-06] MEDS: iohexoL 350 MG/ML 100 ML INFUS..BTL 85 ML IV (22:10)
[2023-09-06 22:11] LABS: Lactic Acid 2.4 mmol/L (0.5-2.0)
[2023-09-06 22:12] VITALS: BP 125/52; PULSE 76; RESP 20; O2SAT 100
[2023-09-06] MEDS: 0.9 % Sodium Chloride 1,000 ML 999 ML IV (22:23)
[2023-09-06] MEDS: cefTRIAXone sodium 1 GM in 0.9 % Sodium Chloride 50 ML IV (22:23)
[2023-09-06] MEDS: busPIRone HCl 5 MG TABLET 7.5 MG PO (22:23)
--- NOTE | 2023-09-06 22:29 | PC.NURSE ---
pt medicated per oct, pt tolerated medication well with ice cream.
[2023-09-06] MEDS: Azithromycin 500 MG in 0.9 % Sodium Chloride 250 ML 125 MG IV (23:00)
--- NOTE | 2023-09-06 23:07 | PC.NURSE ---
pt belongings placed in POD closet.
[2023-09-06 23:17] VITALS: BP 125/52; PULSE 93; RESP 16; O2SAT 97
[2023-09-06 23:59] LABS: Reflex Lactate? Lactic Acid Added
[2023-09-07] VITALS (15 sets, daily range): BP systolic 101–181; BP diastolic 52–90; PULSE 76–150; RESP 16–34; TEMP 36.3–36.9; O2SAT 96–100
--- NOTE | 2023-09-07 | ECG_ITS ---
Test Reason : TACHYCARDIA Blood Pressure : / mmHG Vent. Rate : 116 BPM Atrial Rate : 116 BPM P-R Int : 132 ms QRS Dur : 080 ms QT Int : 322 ms P-R-T Axes : 089 071 080 degrees QTc Int : 447 ms Sinus tachycardia with Premature supraventricular complexes Otherwise normal ECG When compared with ECG of 06-SEP-2023 20:06, Premature supraventricular complexes are now Present Vent. rate has increased BY 46 BPM Non-specific change in ST segment in Anterior leads Referred By: Nova Gordillo Electronically Signed By:CRYSTAL NARVAEZ MD
--- NOTE | 2023-09-07 00:19 | PC.NURSE ---
Per MD, no bedside sitter needed. Sitter removed. Primary RN notified.
[2023-09-07] MEDS: Mirtazapine 7.5 MG TABLET PO ×2 (01:24→20:46)
[2023-09-07] MEDS: OLANZapine 10 MG TABLET PO ×2 (01:24→20:45)
[2023-09-07 01:37] LABS: Appearance Urine Clear; Color Urine Yellow; Glucose Urine UA Negative (Negative); Leukocyte Esterase Urine Negative (Negative); Nitrite Urine Negative (Negative); PH 6.5 (5.0-9.0); Specific Gravity - Urine >= 1.030 (1.005-1.025); Urine Blood Negative (Negative); Urine Ketones Negative (Negative); Urine Protein Negative (Neg-Trace)
--- NOTE | 2023-09-07 01:37 | PC.NURSE ---
this rn assisted pt with urinal. pt voided 150ml of dark yellow urine. urine sample obtained and sent to lab at this time.
[2023-09-07 01:49] LABS: Amphetamine Screen Urine Not Detected (Not Detect); Barbiturates, Urine Not Detected (Not Detect); Benzodiazepines Screen Urine Not Detected (Not Detect); Cannabinoid Screen Urine Not Detected (Not Detect); Cocaine Screen Urine Not Detected (Not Detect); Fentanyl, urine Not Detected (Not Detect); Opiate Screen Urine Not Detected (Not Detect); Phencyclidine Screen Urine Not Detected (Not Detect)
--- NOTE | 2023-09-07 01:49 | PC.NURSE ---
1:1 sitter placed at bedside per provider order.
[2023-09-07 02:38] LABS: ~Lactic Acid-LAB USE ONLY 2.6 mmol/L (0.5-2.0)
--- NOTE | 2023-09-07 02:46 | P.HPHOSP_ITS ---
History of Present Illness Date of Service: 09/07/23 Attending physician on admission: Lori Patiño Chief Complaint: Patient is doing poorly and not eating accoding to visiting nurse Joaquín Esparza is a 67 years old man with past medical history significant for COPD and schizophrenia was brought via EMS to the emergency department after he was noted doing poorly and not eating by his visiting nurse. Patient has lost 15 lb over the last several months. HPI was obtained from patient's chart and emergency provider as he patient also has acute psych symptoms. It seems like the patient has been quite paranoid and confused. Patient was placed in Section 12 by [place] physician as the patient was very confused, paranoid and impairment of judgment. On evaluation patient was sleeping soundly. In the ED, he was found to have normal vital signs. Blood workup is remarkable for anemia which is at baseline, and hypokalemia, 2.9. Corrected sodium is 135. Lactic acid is elevated (last is 2.6). CRP is elevated. Urinalysis showed elevated specific gravity but no findings of UTI. Urine drug screen is negative. Blood cultures were obtained. He underwent a chest CT scan that showed Emphysema with large bullae with septations in the left upper lobe, left mid lung consolidation/infiltrate + left lower lobe patchy airspace infiltrate. ED tx: azithromycin 500 mg IV x1, ceftriaxone 1 g IV x1, DuoNeb. Review of Systems 2 Review of Systems: All 12 systems were reviewed and normal except as noted in HPI. FORMERLY [facility], [facility] Medical History COPD (chronic obstructive pulmonary disease) Acidosis, lactic Leukocytosis Smoker in home Emphysema lung COPD (chronic obstructive pulmonary disease) Schizophrenia Right inguinal hernia Pneumonia Umbilical hernia COPD (chronic obstructive pulmonary disease) Pneumothorax COPD (chronic obstructive pulmonary disease) Family History Father CAD (coronary artery disease) Surgical History No pertinent past surgical history Social History Household Members: Other Household Members Other:: roommate Housing: Other Housing Other:: hotel Do you presently have visiting nurse or other home services: Yes Unable to assess alcohol history related to: Refusing to respond Alcohol intake: current Alcohol intake frequency: a few times a month Alcohol type: beer Comment: refuses alarm Patient Tobacco Use Status: Former Tobacco user Tobacco use type: Cigarette Cigarette Packs Per Day: 1 Cigarettes Per Day: 20.0 e-Cigarette/Vaping Use: Currently Using Second Hand Smoke Exposure: No Use of substances other than those prescribed or required for medical reasons: Refusing to respond Advance Directives: Yes Advance Directives on File: Yes Advance Directives Date on File: 05/26/22 service: Yes Current occupational status: 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 Meds Allergies Allergy/AdvReac Type Severity Reaction Status Date / Time tree and shrub pollen Allergy Mild Rash Verified 09/06/23 19:33 Active Medications: Current Medications Acetaminophen (Acetaminophen 325 Mg Tablet) 650 mg PO Q6H PRN PRN Reason: Pain, Mild (Pain Scale 1-3) Buspirone HCl (Buspirone Hcl 5 Mg Tablet) 7.5 mg PO BID [facility] Last Admin: 09/06/23 22:23 Dose: 7.5 mg Heparin Sodium (Porcine) (Heparin Sodium,Porcine 5,000 Unit/Ml Vial) 5,000 unit SUBCUT Q8H [facility] Ceftriaxone Sodium 1 gm/ (Sodium Chloride) 50 mls @ 100 mls/hr IV 2200 [facility] Azithromycin 500 mg/ Sodium (Chloride) 250 mls @ 125 mls/hr IV 2000 [facility] Sodium Chloride (0.9 % Sodium Chloride Flush 3 Ml Syringe) 3 ml IVFLUSH QSHIFT [facility] Home Medications Medication Instructions Recorded Confirmed Last Taken Type acamprosate 333 mg tablet,delayed 333 mg PO TID 01/25/22 06/10/22 06/10/22 History release benzonatate 100 mg capsule 100 mg PO TID PRN Cough 01/25/22 06/10/22 Unknown History buspirone 7.5 mg tablet 7.5 mg PO BID 01/25/22 06/10/22 06/10/22 History docusate sodium 100 mg capsule 100 mg PO DAILY PRN Constipation 01/25/22 06/10/22 Unknown History fluticasone 500 mcg-salmeterol 50 1 inh inhalation BID 01/25/22 06/10/22 06/10/22 History mcg/dose blistr powdr for inhalation (Advair Diskus) folic acid 1 mg tablet 1 mg PO DAILY 01/25/22 06/10/22 06/10/22 History gabapentin 100 mg capsule 100 mg PO BID 01/25/22 06/10/22 06/10/22 History hydroxyzine HCl 10 mg tablet 10 mg PO Q24H PRN Anxiety 01/25/22 06/10/22 Unknown History megestrol 400 mg/10 mL (10 mL) 200 mg PO BID 01/25/22 06/10/22 06/10/22 History oral suspension olanzapine 10 mg tablet 10 mg PO BEDTIME 01/25/22 06/10/22 06/10/22 History psyllium 1 tbsp PO DAILY 01/25/22 06/10/22 06/10/22 History tamsulosin 0.4 mg capsule 0.4 mg PO DAILY 01/25/22 06/10/22 06/10/22 History tiotropium bromide 2.5 2 puff inhalation DAILY 01/25/22 06/10/22 06/10/22 History mcg/actuation mist for inhalation trazodone 100 mg tablet 100 mg PO BEDTIME PRN Insomnia 01/25/22 06/10/22 Unknown History guaifenesin 600 mg tablet, 600 mg PO BID 05/13/22 06/10/22 06/10/22 History extended release 12 hr albuterol sulfate 90 mcg/actuation 2 inh inhalation Q4-6H PRN 06/11/22 06/11/22 Unknown History aerosol inhaler (ProAir HFA) Shortness Of Breath Or Wheezing Physical Exam 2 Vital Signs and Narrative: Vital Signs: Last Vital Signs Temp 97.7 F 09/07/23 01:55 Pulse 76 09/07/23 01:55 Resp 20 09/07/23 01:55 BP 109/63 09/07/23 01:55 Pulse Ox 100 09/07/23 01:55 O2 Del Method Nasal Cannula 09/07/23 01:55 O2 Flow Rate 4 09/07/23 01:55 Oxygen Flow Rate 4 09/06/23 19:33 BMI result Body Mass Index 22.9 Constitutional - Sleeping, No apparent distress HEENT - Atraumatic, normocephalic, Cardiovascular - RRR, no murmur. Respiratory - Normal lung expansion, Normal respiratory effort, No respiratory distress, decreased breath sounds at bases. Gastrointestinal - NT / ND; +BS; No rebound or guarding Extremities - No edema. Musculoskeletal - Normal inspection, normal ROM Skin - Warm/Dry Neurological - Sleeping Psychological - Unable to evaluate, pt is sleeping Results Labs 09/06/23 20:41 09/06/23 20:41 Labs: Laboratory Results - last 24 hr 09/06/23 09/06/23 09/07/23 20:41 21:53 01:29 MCV 82.5 MCH 26.8 L MCHC 32.5 RDW 14.6 Plt Count 577 H MPV 8.3 L Immature Gran % (Auto) 0.3 Neut % (Auto) 90.1 H Lymph % (Auto) 5.9 L Motley % (Auto) 3.6 Eos % (Auto) 0.0 Baso % (Auto) 0.1 Lymph # (Auto) 0.5 L Motley # (Auto) 0.3 Eos # (Auto) 0.0 Baso # (Auto) 0.0 Abs Immat Gran (auto) 0.03 Absolute Neuts (auto) 8.0 Absolute Nucleated RBC 0.000 Nucleated RBC % (auto) 0.0 Smear Tech's Comments VERIFIED Anion Gap 14 Estim Creat Clear Calc 115.5 Estimated GFR > 60 Random Glucose 198 H Lactic Acid 2.4 H* Lactic Acid F/U @ 2Hr Calcium 8.3 L Magnesium 2.0 Total Bilirubin 0.3 Direct Bilirubin 0.2 AST 15 ALT 8 Alkaline Phosphatase 108 C-Reactive Protein 12.49 H B-Natriuretic Peptide 59 Total Protein 6.5 Albumin 2.6 L Urine Color Yellow Urine Appearance Clear Urine pH 6.5 Ur Specific [place] >= 1.030 H Urine Protein Negative Urine Glucose (UA) Negative Urine Ketones Negative Urine Blood Negative Urine Nitrite Negative Ur Leukocyte Esterase Negative Urine Opiates Screen Not Detected Urine Fentanyl Screen Not Detected Ur Barbiturates Screen Not Detected Ur Phencyclidine Scrn Not Detected Ur Amphetamines Screen Not Detected U Benzodiazepines Scrn Not Detected Urine Cocaine Screen Not Detected U Marijuana (THC) Screen Not Detected Ethyl Alcohol < 10 09/07/23 01:40 MCV MCH MCHC RDW Plt Count MPV Immature Gran % (Auto) Neut % (Auto) Lymph % (Auto) Motley % (Auto) Eos % (Auto) Baso % (Auto) Lymph # (Auto) Motley # (Auto) Eos # (Auto) Baso # (Auto) Abs Immat Gran (auto) Absolute Neuts (auto) Absolute Nucleated RBC Nucleated RBC % (auto) Smear Tech's Comments Anion Gap Estim Creat Clear Calc Estimated GFR Random Glucose Lactic Acid Lactic Acid F/U @ 2Hr 2.6 H* Calcium Magnesium Total Bilirubin Direct Bilirubin AST ALT Alkaline Phosphatase C-Reactive Protein B-Natriuretic Peptide Total Protein Albumin Urine Color Urine Appearance Urine pH Ur Specific [place] Urine Protein Urine Glucose (UA) Urine Ketones Urine Blood Urine Nitrite Ur Leukocyte Esterase Urine Opiates Screen Urine Fentanyl Screen Ur Barbiturates Screen Ur Phencyclidine Scrn Ur Amphetamines Screen U Benzodiazepines Scrn Urine Cocaine Screen U Marijuana (THC) Screen Ethyl Alcohol Imaging Radiologist's Impressions: Impressions Chest X-Ray 09/06/23 20:00 IMPRESSION: Again, there is sequela of emphysema, with persistent left upper lobe thick-walled cavity. There is a superimposed mild to moderate left base infiltrate now appreciated. Recommend continued radiographic follow-up to clearance. Chest CT 09/06/23 22:11 IMPRESSION: Emphysema with large bulla/cavity with septations in the left upper lobe. There is adjacent parenchymal air bronchogram in left midlung likely consolidation/infiltrate. In the left lower lobe patchy airspace infiltrate. There is a new patchy density seen in the right upper lobe lateral segment compared to CT chest 08/15/2023. Mild left apical and basilar pleural thickening. Fleischner guidelines were followed. Assessment and Plan (1) Pneumonia: Qualifiers: Pneumonia type: due to unspecified organism Laterality: left Lung location: unspecified part of lung Qualified Code(s): J18.9 - Pneumonia, unspecified organism Status: Acute (2) COPD (chronic obstructive pulmonary disease): Qualifiers: COPD type: unspecified COPD Qualified Code(s): J44.9 - Chronic obstructive pulmonary disease, unspecified Status: Acute Plan Joaquín Esparza is a 67 years old man admitted with: * Community-acquired pneumonia. Admit to hospitalist Service. Telemetry. Pulse oximetry. Continue empiric IV antibiotic therapy with azithromycin and ceftriaxone. Supplemental oxygen as needed to keep oxygen saturation over 90%. * Elevated lactic acid; possible secondary to volume depletion (specific gravity in urine is elevated). There is no leukocytosis, tachycardia or hypotension. Doubt sepsis. Blood cultures were obtained. Will order IVFs and recheck lactic acid. * Chronic obstructive pulmonary disease, not exacerbated. Continue prednisone 5 mg p.o. daily. DuoNeb as needed. * Schizophrenia, decompensated. Will continue olanzapine. Patient also take mirtazapine and BuSpar. Patient was placed on Section 12. Will obtain psychiatric consult. * Anemia, chronic. Continue to monitor hemoglobin. VTE prophylaxis: Heparin subcu Code status: Presumed full code. Patient will require hospitalization forat least 2 midnight for community- acquired pneumonia treatment with oxygen and IV antibiotics. Quality Stroke Does the patient have a stroke diagnosis?: No VTE Prior VTE?: No VTE Risk Level:: Medical - moderate - high VTE Device Contraindication: Treatment Not Indicated VTE Drug Contraindication: N/A - Med Ordered
[2023-09-07] MEDS: 0.9 % Sodium Chloride 1,000 ML 999 ML IV (03:46)
[2023-09-07 04:13] LABS: Reflex Lactate? 2 Y
--- NOTE | 2023-09-07 06:11 | MHC.EDTECH ---
Patient refused morning labs ,jay Aviles aware .
--- NOTE | 2023-09-07 06:22 | PC.NURSE ---
pt urinated 300ml of yellow urine into urinal at this time. pt assisted in repositioning in bed.
[2023-09-07 06:50] LABS: Influenza A PCR NEGATIVE (Negative); Influenza B PCR NEGATIVE (Negative); Resp Syncy Virus RNA Qual PCR NEGATIVE (Negative); SARS COV2 PCR INHOUSE NEGATIVE (Negative)
--- NOTE | 2023-09-07 06:53 | PC.NURSE ---
pt refusing morning labs, aware.
--- NOTE | 2023-09-07 07:26 | PC.NURSE ---
Resumed care of this patient this morning, he is currently sleeping. Provider notified of tech concerns in relation to patient swallowing, question whether swallow eval should be completed. Awaiting further orders at this time
--- NOTE | 2023-09-07 08:48 | MHC.CARE ---
Angie, a Nurse with [facility], leaves her contact information for follow up regarding patient. [phone] Hayes's nurse, Dr Hayes is the MD who sent patient to [facility] on section 12
--- NOTE | 2023-09-07 09:10 | PHA.MEDREC ---
Pharmacy Consult ? Medication Reconciliation Pharmacy has completed the medication reconciliation. Med list sent from [place].
--- NOTE | 2023-09-07 09:11 | MHC.CM.PN ---
Patient is documented to have s/s of Acute Psych Symptoms(Paranoia & Confusion)and was Section 12 here to the hospital. Patient typically lives alone in a one room Motel on [address] in [place] and he uses a walker to assist with mobility. CM spoke with Patient's Sister/HCP/POA/Ana Hackett @ [phone] and addressed IMM with her (original to be mailed certified letter to Sister and a copy to be placed on the chart).Ana Hackett explains that home services have been attempted in the past but Patient refuses to open the door. DC plan is pending Psych consult and CM has initiated and will follow for dc planning. Patient does have a Friend/Caregiver/Nate, who assists Ana Hackett in caring for Patient. CM will follow.
--- NOTE | 2023-09-07 09:46 | PC.NURSE ---
deferring po meds at this time until official [employer]LECT[employer] MECHANIC mau caicedo made aware
--- NOTE | 2023-09-07 09:47 | PC.NURSE ---
boosted, repositioned, warm blankets. iv c/d/i. shop firer/fireman at bedside doing swallow eval. no resp distress. no si/hi reported. pa inform pt would like to speak w her
[2023-09-07 10:58] LABS: MANUAL DIFF FLAG NO
[2023-09-07 10:59] LABS: Basophils Percent Auto 0.2 % (0-2); Eosinophils Absolute Auto 0.1 X10*3/uL (0.0-0.4); Hematocrit 29.6 % (42.0-52.0); Hemoglobin 9.6 g/dl (14.0-18.0); Imm Gran Abs Auto 0.06 X10*3/uL (0.00-0.03); Imm Gran Pct Auto 0.4 % (0.0-0.4); Lymphocytes Percent Auto 14.9 % (20-40); Mean Corpuscular HGB Conc 32.4 g/dl (31.0-36.0); Mean Corpuscular Hemoglobin 27.2 pg (27.0-33.0); Mean Corpuscular Volume 83.9 fL (80.0-98.0); Mean Platelet Volume 8.7 fL (9.4-12.4); Monocytes Percent Auto 7.4 % (2-11); Neutrophils Absolute Auto 10.2 x10*3/uL (2.0-8.3); Neutrophils Percent Auto 76.1 % (45-73); Platelet Count 600 X10*3/uL (160-400); Red Blood Count 3.53 X10*6/uL (4.60-5.80); Red Cell Distribution Width 14.7 % (11.0-16.0); White Blood Count 13.5 X10*3/uL (4.8-10.8)
--- NOTE | 2023-09-07 11:00 | MHC.SL.SWA ---
Speech Pathologist Impression: Risk of Aspiration Due to: History of Pneumonia Poor PO Intake Reduced Cognition Weak Voice Dysphasia Diet Status: Liquid Consistency and Strategies for Safe Swallow: Liquid Intake Recommendation: Thin Liquid Intake Strategies: Small Sips No Straws Solid Food Consistency: Dietary Recommendations: Grnd/Mech Altered (NDD2) Additional Modifications to Solid Foods: Patient can feed self, but needs to be closely monitored and cued, as he has a tendency to pack his mouth. Encourage patient to take no more than two mouthfuls and swallowing before introducing more food into mouth. Remove food/utensils if patient is packing mouth. Avoid straws, offer liquids by controlled cup sip or individual sips. Alternate liquids and solids. Patient should be seated upright for meal, but should be given frequent rest breaks during meal, with head of bed reclined (no food/drink during breaks or when reclined). Add sauces/gravies and blend well. Oral Medication Intake: Whole with Liquid Please contact the pharmacy regarding appropriate crushable or liquid drug formulations that are available whenever modified delivery is recommended. Compensatory Strategies and Precautions to be Taken for Safe Swallow: Sitting Upright (90 deg) No Straw Liquids from Cup Liquids from Spoon Small Bites and Sips Alternate Liquids/Solids Oral Check Supervision While Eating and Drinking for Safe Swallow: Total Supervision (1:1) Foods to Avoid: Tough, difficult to chew solids, crunchy/crumbly textures. Swallowing Recommended Treatments: Compens. Strategy Educat. Recommendation for Speech: Inpatient Speech Therapy Comment: Patient presents with a mild to moderate oral phase dysphagia due to poor/broken/decayed dentition and disorganized chewing/lingual pattern. Patient noted to fatigue have increased SOB while eating, required frequent rest breaks during trials with head of bed reclined to 40 degrees. Patient also noted to attempt to pack mouth with food, required cuing and removal of food to prevent this behavior. Recommend DOWNGRADE diet to Ground Mechanical/Altered (NDD2) with thin liquids, by cup sip or tsp only, pills whole with liquid or in puree. Due to noted behaviors, patient will need 1-1 supervision during all meals. OIL PAINT SHADER will continue to follow 1-2X, for toleration of diet and possible advancement. DELIA PINK notified of recommendations by secure text, RN in person. Frequency/Duration: 1-2 f/u Date Range for Service Req: Timeline to reassess: Physical Security Specialist Clinican/Clinical Fellow: No Supervisory Statement: I have reviewed and agree with the student/clinical fellow's documentation: N/A Speech Language Pathologist: Yesenia Dasilva M.A., [facility]IL PAINT [employer]
[2023-09-07 11:13] LABS: Alanine Aminotransferase 11 U/L (0-40); Albumin Level 2.4 g/dL (3.5-5.0); Alkaline Phosphatase 103 U/L (39-117); Anion Gap 8 (12-20); Aspartate Amino Transferase 27 U/L (5-37); Bilirubin Total 0.2 mg/dL (0.0-1.0); Blood Urea Nitrogen 3 mg/dL (9-16); Calcium 7.9 mg/dL (8.4-10.2); Carbon Dioxide 24 mmol/L (22-29); Chloride 108 mmol/L (96-108); Creatinine Clr Calc Pharmacy 133.3; Estimated Glomerular Filt Rate > 60; Glucose Random 113 mg/dL (60-115); Potassium 3.2 mmol/L (3.3-5.1); Sodium 137 mmol/L (135-145); Total Protein 5.8 g/dL (6.5-8.0)
--- NOTE | 2023-09-07 12:14 | P.PNPSI_ITS ---
Subjective Subjective Reason For Visit: Community Acquired Pneumonia Diagnostics Vital Signs (24Hr): Vital Signs - 24 hr 09/06/23 19:33 09/06/23 22:12 09/06/23 23:17 Temperature 97.6 F Pulse Rate 75 76 93 Respiratory Rate 18 20 16 Blood Pressure 116/56 L 125/52 L 125/52 L Pulse Oximetry 100 100 97 Oxygen Delivery Method Nasal Cannula Room Air Room Air Oxygen Flow Rate 4 09/07/23 01:55 09/07/23 06:00 09/07/23 09:47 Temperature 97.7 F 97.4 F Pulse Rate 76 82 91 Respiratory Rate 20 20 21 H Blood Pressure 109/63 127/52 L 130/55 L Pulse Oximetry 100 100 98 Oxygen Delivery Method Nasal Cannula Nasal Cannula Nasal Cannula Oxygen Flow Rate 4 4 09/07/23 11:55 Temperature Pulse Rate 127 H Respiratory Rate 16 Blood Pressure 155/73 H Pulse Oximetry 98 Oxygen Delivery Method Nasal Cannula Oxygen Flow Rate 2 BMI result Body Mass Index 22.9 Labs 09/07/23 10:53 09/07/23 10:53 Labs: Laboratory Results - last 48 hr 09/06/23 09/06/23 09/07/23 20:41 21:53 01:29 WBC 8.9 RBC 3.77 L Hgb 10.1 L Hct 31.1 L MCV 82.5 MCH 26.8 L MCHC 32.5 RDW 14.6 Plt Count 577 H MPV 8.3 L Immature Gran % (Auto) 0.3 Neut % (Auto) 90.1 H Lymph % (Auto) 5.9 L [place] % (Auto) 3.6 Eos % (Auto) 0.0 Baso % (Auto) 0.1 Lymph # (Auto) 0.5 L [place] # (Auto) 0.3 Eos # (Auto) 0.0 Baso # (Auto) 0.0 Abs Immat Gran (auto) 0.03 Absolute Neuts (auto) 8.0 Absolute Nucleated RBC 0.000 Nucleated RBC % (auto) 0.0 Smear Tech's Comments VERIFIED Sodium 133 L Potassium 2.9 L* Chloride 99 Carbon Dioxide 23 Anion Gap 14 BUN 5 L Creatinine 0.60 Estim Creat Clear Calc 115.5 Estimated GFR > 60 Random Glucose 198 H Lactic Acid 2.4 H* Lactic Acid F/U @ 2Hr Lactic Acid F/U @ 4Hr Calcium 8.3 L Magnesium 2.0 Total Bilirubin 0.3 Direct Bilirubin 0.2 AST 15 ALT 8 Alkaline Phosphatase 108 C-Reactive Protein 12.49 H B-Natriuretic Peptide 59 Total Protein 6.5 Albumin 2.6 L Urine Color Yellow Urine Appearance Clear Urine pH 6.5 Ur Specific [place] >= 1.030 H Urine Protein Negative Urine Glucose (UA) Negative Urine Ketones Negative Urine Blood Negative Urine Nitrite Negative Ur Leukocyte Esterase Negative Urine Opiates Screen Not Detected Urine Fentanyl Screen Not Detected Ur Barbiturates Screen Not Detected Ur Phencyclidine Scrn Not Detected Ur Amphetamines Screen Not Detected U Benzodiazepines Scrn Not Detected Urine Cocaine Screen Not Detected U Marijuana (THC) Screen Not Detected Ethyl Alcohol < 10 Influenza Type A (PCR) Influenza Type B (PCR) RSV RNA Qual (PCR) SARS-CoV-2 RNA (RT-PCR) 09/07/23 09/07/23 09/07/23 01:40 06:05 10:53 WBC 13.5 H RBC 3.53 L Hgb 9.6 L Hct 29.6 L MCV 83.9 MCH 27.2 MCHC 32.4 RDW 14.7 Plt Count 600 H MPV 8.7 L Immature Gran % (Auto) 0.4 Neut % (Auto) 76.1 H Lymph % (Auto) 14.9 L [place] % (Auto) 7.4 Eos % (Auto) 1.0 Baso % (Auto) 0.2 Lymph # (Auto) 2.0 [place] # (Auto) 1.0 Eos # (Auto) 0.1 Baso # (Auto) 0.0 Abs Immat Gran (auto) 0.06 H Absolute Neuts (auto) 10.2 H Absolute Nucleated RBC 0.000 Nucleated RBC % (auto) 0.0 Smear Tech's Comments Sodium 137 Potassium 3.2 L Chloride 108 Carbon Dioxide 24 Anion Gap 8 L BUN 3 L Creatinine 0.52 Estim Creat Clear Calc 133.3 Estimated GFR > 60 Random Glucose 113 Lactic Acid Lactic Acid F/U @ 2Hr 2.6 H* Lactic Acid F/U @ 4Hr 1.0 Calcium 7.9 L Magnesium Total Bilirubin 0.2 Direct Bilirubin AST 27 ALT 11 Alkaline Phosphatase 103 C-Reactive Protein B-Natriuretic Peptide Total Protein 5.8 L Albumin 2.4 L Urine Color Urine Appearance Urine pH Ur Specific [place] Urine Protein Urine Glucose (UA) Urine Ketones Urine Blood Urine Nitrite Ur Leukocyte Esterase Urine Opiates Screen Urine Fentanyl Screen Ur Barbiturates Screen Ur Phencyclidine Scrn Ur Amphetamines Screen U Benzodiazepines Scrn Urine Cocaine Screen U Marijuana (THC) Screen Ethyl Alcohol Influenza Type A (PCR) NEGATIVE Influenza Type B (PCR) NEGATIVE RSV RNA Qual (PCR) NEGATIVE SARS-CoV-2 RNA (RT-PCR) NEGATIVE Imaging Radiology Impressions: ITS Impressions Chest X-Ray 09/06/23 20:00 IMPRESSION: Again, there is sequela of emphysema, with persistent left upper lobe thick-walled cavity. There is a superimposed mild to moderate left base infiltrate now appreciated. Recommend continued radiographic follow-up to clearance. Chest CT 09/06/23 22:11 IMPRESSION: Emphysema with large bulla/cavity with septations in the left upper lobe. There is adjacent parenchymal air bronchogram in left midlung likely consolidation/infiltrate. In the left lower lobe patchy airspace infiltrate. There is a new patchy density seen in the right upper lobe lateral segment compared to CT chest 08/15/2023. Mild left apical and basilar pleural thickening. Fleischner guidelines were followed. Medications Medications Current Medications Acetaminophen (Acetaminophen 325 Mg Tablet) 650 mg PO Q6H PRN PRN Reason: Pain, Mild (Pain Scale 1-3) Albuterol/Ipratropium (Albuterol/Iprat 2.5/0.5mg 3 Ml Ampul.Neb) 3 ml INHALE RQ4H WHILE AWAKE [facility] Buspirone HCl (Buspirone Hcl 5 Mg Tablet) 7.5 mg PO BID [facility] Last Admin: 09/06/23 22:23 Dose: 7.5 mg Heparin Sodium (Porcine) (Heparin Sodium,Porcine 5,000 Unit/Ml Vial) 5,000 unit SUBCUT Q8H [facility] Heparin Sodium (Porcine) (Heparin Sodium,Porcine 5,000 Unit/Ml Vial) 5,000 unit SUBCUT Q8H [facility] Ceftriaxone Sodium 1 gm/ (Sodium Chloride) 50 mls @ 100 mls/hr IV 2200 [facility] Azithromycin 500 mg/ Sodium (Chloride) 250 mls @ 125 mls/hr IV 2000 [facility] Levalbuterol HCl (Levalbuterol Hcl 1.25 Mg/3 Ml Vial.Neb) 1.25 mg INHALE Q4H PRN PRN Reason: Shortness of Breath/Wheezing Mirtazapine (Mirtazapine 7.5 Mg Tablet) 7.5 mg PO BEDTIME [facility] Olanzapine (Olanzapine 10 Mg Tablet) 10 mg PO BEDTIME [facility] Prednisone (Prednisone 5 Mg Tablet) 5 mg PO DAILY [facility] Sodium Chloride (0.9 % Sodium Chloride Flush 3 Ml Syringe) 3 ml IVFLUSH QSHIFT [facility] Last Admin: 09/07/23 09:40 Dose: Not Given Allergies Allergies Allergy/AdvReac Type Severity Reaction Status Date / Time tree and shrub pollen Allergy Mild Rash Verified 09/06/23 19:33 Assessment & Plan Assessment & Plan (1) Pneumonia: Qualifiers: Laterality: left Lung location: unspecified part of lung Pneumonia type: due to unspecified organism Qualified Code(s): J18.9 - Pneumonia, unspecified organism Status: Acute Code(s): J18.9 - Pneumonia, unspecified organism (2) COPD (chronic obstructive pulmonary disease): Qualifiers: COPD type: unspecified COPD Qualified Code(s): J44.9 - Chronic obstructive pulmonary disease, unspecified Status: Acute Code(s): J44.9 - Chronic obstructive pulmonary disease, unspecified Plan Joaquín Esparza is a 67 years old man admitted with: * Community-acquired pneumonia. Admit to hospitalist Service. Telemetry. Pulse oximetry. Continue empiric IV antibiotic therapy with azithromycin and ceftriaxone. Supplemental oxygen as needed to keep oxygen saturation over 90%. * Elevated lactic acid; possible secondary to volume depletion (specific gravity in urine is elevated). There is no leukocytosis, tachycardia or hypotension. Doubt sepsis. Blood cultures were obtained. Will order IVFs and recheck lactic acid. * Chronic obstructive pulmonary disease, not exacerbated. Continue prednisone 5 mg p.o. daily. DuoNeb as needed. * Schizophrenia, decompensated. Will continue olanzapine. Patient also take mirtazapine and BuSpar. Patient was placed on Section 12. Will obtain psychiatric consult. * Anemia, chronic. Continue to monitor hemoglobin. VTE prophylaxis: Heparin subcu Code status: Presumed full code. Patient will require hospitalization forat least 2 midnight for community- acquired pneumonia treatment with oxygen and IV antibiotics. Time Spent With Patient Time: Total time managing care of this patient today ____ minutes.
[2023-09-07] MEDS: Potassium Chloride Packet 20 MEQ PACKET 40 MEQ PO (12:23)
[2023-09-07] MEDS: busPIRone HCl 5 MG TABLET 7.5 MG PO ×2 (12:23→20:46)
[2023-09-07] MEDS: Heparin Sodium,Porcine 5,000 UNIT/ML VIAL 5000 UNIT SUBCUT ×2 (12:24→20:45)
[2023-09-07] MEDS: predniSONE 5 MG TABLET PO (12:24)
[2023-09-07] MEDS: levalbuterol HCL 1.25 MG/3 ML VIAL.NEB INHALE (12:52)
[2023-09-07] MEDS: methylPREDNISolone Sod Succ 40 MG/ML VIAL IVPUSH (13:09)
[2023-09-07] MEDS: Morphine Sulfate 2 MG/ML CARTRIDGE IVPUSH ×2 (13:09→20:44)
[2023-09-07 13:34] LABS: ABG Base Excess -1.6 mmol/L; ABG HCO3 21 mmol/L (22-26); ABG pCO2 31 mmHg (32-45); ABG pH 7.44 (7.35-7.45); ABG pO2 98 mmHg (83-108)
--- NOTE | 2023-09-07 14:02 | P.PNIM_ITS ---
Subjective Subjective Date of Service: 09/07/23 Interval History: seen and examined this morning follow up for sob, pneumonia initially patient said he wanted to go home and wouldn't let me examine him then called for increase sob, wob patient repeating that he is scared. unable to get full ROS Physical Exam 2 Vital Signs: Vital Signs: Last Vital Signs Temp 97.9 F 09/07/23 12:45 Pulse 125 H 09/07/23 13:10 Resp 32 H 09/07/23 13:10 BP 181/90 H 09/07/23 12:45 Pulse Ox 96 09/07/23 13:10 O2 Del Method Nasal Cannula 09/07/23 13:10 O2 Flow Rate 4 09/07/23 13:10 Oxygen Flow Rate 4 09/06/23 19:33 BMI result Body Mass Index 22.9 Const: Other: appears anxious and sob General: alert and awake Nutritional Appearance: thin Resp: Other: rhonchi b/l increased WOB Cardio: Rate: tachycardic GI: Inspection: No distended Palpation (GI): Soft to palpation and nontender Neuro: Other: awake, alert, following most commands but doesn't answer all questions verbally Extrem: General: Yes no pedal edema Objective Data Active Medications Acetaminophen (Acetaminophen 325 Mg Tablet) 650 mg PO Q6H PRN PRN Reason: Pain, Mild (Pain Scale 1-3) Albuterol/Ipratropium (Albuterol/Iprat 2.5/0.5mg 3 Ml Ampul.Neb) 3 ml INHALE RQ4H WHILE AWAKE [facility] Benzonatate (Benzonatate 100 Mg Capsule) 100 mg PO TID PRN PRN Reason: Cough Buspirone HCl (Buspirone Hcl 5 Mg Tablet) 7.5 mg PO BID [facility] Last Admin: 09/07/23 12:23 Dose: 7.5 mg Documented By: SYLVAIN Cyanocobalamin (Cyanocobalamin (Vitamin B-12) 500 Mcg Tablet) 500 mcg PO BID [facility] Folic Acid (Folic Acid 1 Mg Tablet) 1 mg PO DAILY [facility] Gabapentin (Gabapentin 100 Mg Capsule) 100 mg PO BID [facility] Guaifenesin (Guaifenesin [place] 600 Mg Tab.Er.12h) 600 mg PO BID [facility] Last Admin: 09/07/23 13:18 Dose: Not Given Documented By: SYLVAIN Non-Admin Reason: alesia pardo aware failed rn swallow eval Heparin Sodium (Porcine) (Heparin Sodium,Porcine 5,000 Unit/Ml Vial) 5,000 unit SUBCUT Q8H [facility] Last Admin: 09/07/23 12:24 Dose: 5,000 unit Documented By: SYLVAIN Comments: declined earlier Heparin Sodium (Porcine) (Heparin Sodium,Porcine 5,000 Unit/Ml Vial) 5,000 unit SUBCUT Q8H [facility] Last Admin: 09/07/23 12:24 Dose: Not Given Documented By: SYLVAIN Non-Admin Reason: duplicate Ceftriaxone Sodium 1 gm/ (Sodium Chloride) 50 mls @ 100 mls/hr IV 2200 [facility] Azithromycin 500 mg/ Sodium (Chloride) 250 mls @ 125 mls/hr IV 2000 [facility] Levalbuterol HCl (Levalbuterol Hcl 1.25 Mg/3 Ml Vial.Neb) 1.25 mg INHALE Q4H PRN PRN Reason: Shortness of Breath/Wheezing Last Admin: 09/07/23 12:52 Dose: 1.25 mg Documented By: JUVE Megestrol Acetate (Megestrol Acetate 400 Mg/10 Ml Oral.Susp) 200 mg PO BID [facility] Methylprednisolone Sodium Succinate (Methylprednisolone Sod Succ 40 Mg/Ml Vial) 40 mg IVPUSH Q12H [facility] Last Admin: 09/07/23 13:09 Dose: 40 mg Documented By: SYLVAIN Mirtazapine (Mirtazapine 7.5 Mg Tablet) 7.5 mg PO BEDTIME [facility] Olanzapine (Olanzapine 10 Mg Tablet) 10 mg PO BEDTIME [facility] Polyethylene Glycol (Polyethylene Glycol 3350 17 Gm Powd.Pack) 17 gm PO BID PRN PRN Reason: Constipation Psyllium Hydrophilic Mucilloid (Psyllium Seed 3.7 Gm Packet) 3.7 gm PO DAILY [facility] Sodium Chloride (0.9 % Sodium Chloride Flush 3 Ml Syringe) 3 ml IVFLUSH QSHIFT [facility] Last Admin: 09/07/23 09:40 Dose: Not Given Documented By: SYLVAIN Non-Admin Reason: prev shift Tamsulosin HCl (Tamsulosin Hcl 0.4 Mg Capsule) 0.8 mg PO DAILY [facility] Thiamine HCl (Thiamine Hcl 100 Mg Tablet) 100 mg PO DAILY [facility] Labs 09/07/23 10:53 09/07/23 10:53 Labs: Laboratory Results - last 24 hr 09/06/23 09/06/23 09/07/23 20:41 21:53 01:29 MCV 82.5 MCH 26.8 L MCHC 32.5 RDW 14.6 Plt Count 577 H MPV 8.3 L Immature Gran % (Auto) 0.3 Neut % (Auto) 90.1 H Lymph % (Auto) 5.9 L [place] % (Auto) 3.6 Eos % (Auto) 0.0 Baso % (Auto) 0.1 Lymph # (Auto) 0.5 L [place] # (Auto) 0.3 Eos # (Auto) 0.0 Baso # (Auto) 0.0 Abs Immat Gran (auto) 0.03 Absolute Neuts (auto) 8.0 Absolute Nucleated RBC 0.000 Nucleated RBC % (auto) 0.0 Smear Tech's Comments VERIFIED O2 Saturation ABG pH at Pt Temp ABG pCO2 at Pt Temp ABG pO2 at Pt Temp ABG HCO3 ABG Base Excess (Actual) Anion Gap 14 Estim Creat Clear Calc 115.5 Estimated GFR > 60 Random Glucose 198 H Lactic Acid 2.4 H* Lactic Acid F/U @ 2Hr Lactic Acid F/U @ 4Hr Calcium 8.3 L Magnesium 2.0 Total Bilirubin 0.3 Direct Bilirubin 0.2 AST 15 ALT 8 Alkaline Phosphatase 108 C-Reactive Protein 12.49 H B-Natriuretic Peptide 59 Total Protein 6.5 Albumin 2.6 L Urine Color Yellow Urine Appearance Clear Urine pH 6.5 Ur Specific [place] >= 1.030 H Urine Protein Negative Urine Glucose (UA) Negative Urine Ketones Negative Urine Blood Negative Urine Nitrite Negative Ur Leukocyte Esterase Negative Urine Opiates Screen Not Detected Urine Fentanyl Screen Not Detected Ur Barbiturates Screen Not Detected Ur Phencyclidine Scrn Not Detected Ur Amphetamines Screen Not Detected U Benzodiazepines Scrn Not Detected Urine Cocaine Screen Not Detected U Marijuana (THC) Screen Not Detected Ethyl Alcohol < 10 Influenza Type A (PCR) Influenza Type B (PCR) RSV RNA Qual (PCR) SARS-CoV-2 RNA (RT-PCR) 09/07/23 09/07/23 09/07/23 01:40 06:05 10:53 MCV 83.9 MCH 27.2 MCHC 32.4 RDW 14.7 Plt Count 600 H MPV 8.7 L Immature Gran % (Auto) 0.4 Neut % (Auto) 76.1 H Lymph % (Auto) 14.9 L [place] % (Auto) 7.4 Eos % (Auto) 1.0 Baso % (Auto) 0.2 Lymph # (Auto) 2.0 [place] # (Auto) 1.0 Eos # (Auto) 0.1 Baso # (Auto) 0.0 Abs Immat Gran (auto) 0.06 H Absolute Neuts (auto) 10.2 H Absolute Nucleated RBC 0.000 Nucleated RBC % (auto) 0.0 Smear Tech's Comments O2 Saturation ABG pH at Pt Temp ABG pCO2 at Pt Temp ABG pO2 at Pt Temp ABG HCO3 ABG Base Excess (Actual) Anion Gap 8 L Estim Creat Clear Calc 133.3 Estimated GFR > 60 Random Glucose 113 Lactic Acid Lactic Acid F/U @ 2Hr 2.6 H* Lactic Acid F/U @ 4Hr 1.0 Calcium 7.9 L Magnesium Total Bilirubin 0.2 Direct Bilirubin AST 27 ALT 11 Alkaline Phosphatase 103 C-Reactive Protein B-Natriuretic Peptide Total Protein 5.8 L Albumin 2.4 L Urine Color Urine Appearance Urine pH Ur Specific [place] Urine Protein Urine Glucose (UA) Urine Ketones Urine Blood Urine Nitrite Ur Leukocyte Esterase Urine Opiates Screen Urine Fentanyl Screen Ur Barbiturates Screen Ur Phencyclidine Scrn Ur Amphetamines Screen U Benzodiazepines Scrn Urine Cocaine Screen U Marijuana (THC) Screen Ethyl Alcohol Influenza Type A (PCR) NEGATIVE Influenza Type B (PCR) NEGATIVE RSV RNA Qual (PCR) NEGATIVE SARS-CoV-2 RNA (RT-PCR) NEGATIVE 09/07/23 13:27 MCV MCH MCHC RDW Plt Count MPV Immature Gran % (Auto) Neut % (Auto) Lymph % (Auto) [place] % (Auto) Eos % (Auto) Baso % (Auto) Lymph # (Auto) [place] # (Auto) Eos # (Auto) Baso # (Auto) Abs Immat Gran (auto) Absolute Neuts (auto) Absolute Nucleated RBC Nucleated RBC % (auto) Smear Tech's Comments O2 Saturation 98.0 ABG pH at Pt Temp 7.44 ABG pCO2 at Pt Temp 31 L ABG pO2 at Pt Temp 98 ABG HCO3 21 L ABG Base Excess (Actual) -1.6 Anion Gap Estim Creat Clear Calc Estimated GFR Random Glucose Lactic Acid Lactic Acid F/U @ 2Hr Lactic Acid F/U @ 4Hr Calcium Magnesium Total Bilirubin Direct Bilirubin AST ALT Alkaline Phosphatase C-Reactive Protein B-Natriuretic Peptide Total Protein Albumin Urine Color Urine Appearance Urine pH Ur Specific [place] Urine Protein Urine Glucose (UA) Urine Ketones Urine Blood Urine Nitrite Ur Leukocyte Esterase Urine Opiates Screen Urine Fentanyl Screen Ur Barbiturates Screen Ur Phencyclidine Scrn Ur Amphetamines Screen U Benzodiazepines Scrn Urine Cocaine Screen U Marijuana (THC) Screen Ethyl Alcohol Influenza Type A (PCR) Influenza Type B (PCR) RSV RNA Qual (PCR) SARS-CoV-2 RNA (RT-PCR) Assessment and Plan (1) Pneumonia: Status: Acute (2) COPD (chronic obstructive pulmonary disease): Status: Acute (3) Schizophrenia: Status: Acute Plan This is a 67 years old male with history of chronic respiratory failure/COPD on 4 L of supplemental oxygen, it, tobacco dependence fountain on Section 12 as the patient has reportedly been doing poorly over the past several weeks and has been having increasing paranoia, decreased p.o. intake and weight loss. Acute on chronic respiratory failure due to acute COPD exacerbation and pneumonia uses 4L at baseline abg ok bnp low flu, covid, rsv negative anxiety/decompensated schizophrenia appears to be playing a role in tachycardia and increased wob. improved with morphine agreeable to care if steps are explained and with reassurance Community-acquired pneumonia. Continue empiric IV antibiotic therapy with azithromycin and ceftriaxone. Supplemental oxygen as needed to keep oxygen saturation over 90%. blood cultures pending acute copd exacerbation will start solu medrol scheduled and prn breathing treatments continue baseline supplemental oxygen Schizophrenia, decompensated brought in on section 12 continue baseline olanzapine,mirtazapine and BuSpar. seen by psych - recommend prn haldol (5mg) and ativan (1mg) if patient becomes anxious currently does not have capacity to make medical decisions will need care team for LOC when medically cleared psych following dysphagia seen by speech, rec [id number] see full note for recs hypokalemia improving with replacement mag wnl Elevated lactic acid; possible secondary to volume depletion (specific gravity in urine is elevated). There was no leukocytosis, tachycardia or hypotension at time of admission. Doubt sepsis. Blood cultures were obtained. Patient became tachycardic likely due to combination of anxiety, breathing treatments. Anemia, chronic. Continue to monitor hemoglobin. VTE prophylaxis: Heparin subcu Code status: Presumed full code. attending - dr. hopkins dispo: patient brought in on section 12. seen by Psych - does not have capacity to make medical decisions at this time Patient will require hospitalization forat least 2 midnight for community- acquired pneumonia treatment with oxygen and IV antibiotics. Quality Stroke Does the patient have a stroke diagnosis?: No VTE Prior VTE?: No VTE Risk Level:: Medical - moderate - high VTE Device Contraindication: Treatment Not Indicated VTE Drug Contraindication: N/A - Med Ordered
--- NOTE | 2023-09-07 14:17 | PC.NURSE ---
alesia caicedo notified breathing well 21/min and hr 96, no distress. 1:1 remains
[2023-09-07 14:21] LABS: ABG Refer to POC result
--- NOTE | 2023-09-07 14:55 | PM.PSYCN ---
History of Present Illness Date of Service: 09/07/2023 Chief Complaint: Community Acquired Pneumonia Reason for Consult: capacity Requesting physician: Nova Gordillo Discussed with referring provider: Yes Sources of Information: patient interviewed, chart reviewed and crisis/core team assessment reviewed HPI Narrative: Mr. Esparza is s a 67 year-old male with a hx of schizophrenia who was sent on a sect 12a due to increase paranoia, not eating, appearing increasingly more confused. In the ED, he was found to have pneumonia, acute on chronic respiratory failure and hypokalemia. He was medically admitted. Psychiatry is consulted for assessment of capacity. Pt seen in bed. He extends his hand and makes hand signals that he can't talked, despite the fact that he has been talking to sitter, asking for water, then reporting he is afraid and scared. He appeared internally preoccupied and with significant suspiciousness. He is not able to show understanding of medical condition, or verbalize an answer (appears selectively talking due to underlying paranoia) [facility] Medical History (Updated 09/07/23 @ 14:05 by APRYL Moore) COPD (chronic obstructive pulmonary disease) Acidosis, lactic Leukocytosis Smoker in home Emphysema lung COPD (chronic obstructive pulmonary disease) Schizophrenia Right inguinal hernia Pneumonia Umbilical hernia COPD (chronic obstructive pulmonary disease) Pneumothorax COPD (chronic obstructive pulmonary disease) Surgical History No pertinent past surgical history Diagnostics Vital Signs (24Hr): Vital Signs - 24 hr 09/06/23 19:33 09/06/23 22:12 09/06/23 23:17 Temperature 97.6 F Pulse Rate 75 76 93 Respiratory Rate 18 20 16 Blood Pressure 116/56 L 125/52 L 125/52 L Pulse Oximetry 100 100 97 Oxygen Delivery Method Nasal Cannula Room Air Room Air Oxygen Flow Rate 4 09/07/23 01:55 09/07/23 06:00 09/07/23 09:47 Temperature 97.7 F 97.4 F Pulse Rate 76 82 91 Respiratory Rate 20 20 21 H Blood Pressure 109/63 127/52 L 130/55 L Pulse Oximetry 100 100 98 Oxygen Delivery Method Nasal Cannula Nasal Cannula Nasal Cannula Oxygen Flow Rate 4 4 09/07/23 11:45 09/07/23 11:55 09/07/23 12:45 Temperature 97.9 F 97.9 F Pulse Rate 150 H 127 H 140 H Respiratory Rate 32 H 16 34 H Blood Pressure 155/73 H 155/73 H 181/90 H Pulse Oximetry 97 98 Oxygen Delivery Method Nasal Cannula Nasal Cannula Nasal Cannula Oxygen Flow Rate 2 2 4 09/07/23 12:53 09/07/23 13:09 09/07/23 13:10 Temperature Pulse Rate 126 H 125 H Respiratory Rate 20 33 H 32 H Blood Pressure Pulse Oximetry 96 Oxygen Delivery Method Nasal Cannula Oxygen Flow Rate 4 09/07/23 14:46 09/07/23 14:47 Temperature Pulse Rate 96 Respiratory Rate 16 21 H Blood Pressure Pulse Oximetry Oxygen Delivery Method Oxygen Flow Rate BMI result Body Mass Index 22.9 Labs 09/07/23 10:53 09/07/23 10:53 Labs: Laboratory Results - last 48 hr 09/06/23 09/06/23 09/07/23 20:41 21:53 01:29 WBC 8.9 RBC 3.77 L Hgb 10.1 L Hct 31.1 L MCV 82.5 MCH 26.8 L MCHC 32.5 RDW 14.6 Plt Count 577 H MPV 8.3 L Immature Gran % (Auto) 0.3 Neut % (Auto) 90.1 H Lymph % (Auto) 5.[address] [place] % (Auto) 3.6 Eos % (Auto) 0.0 Baso % (Auto) 0.1 Lymph # (Auto) 0.[address] [place] # (Auto) 0.3 Eos # (Auto) 0.0 Baso # (Auto) 0.0 Abs Immat Gran (auto) 0.03 Absolute Neuts (auto) 8.0 Absolute Nucleated RBC 0.000 Nucleated RBC % (auto) 0.0 Smear Tech's Comments VERIFIED O2 Saturation ABG pH at Pt Temp ABG pCO2 at Pt Temp ABG pO2 at Pt Temp ABG HCO3 ABG Base Excess (Actual) Sodium 133 L Potassium 2.9 L* Chloride 99 Carbon Dioxide 23 Anion Gap 14 BUN 5 L Creatinine 0.60 Estim Creat Clear Calc 115.5 Estimated GFR > 60 Random Glucose 198 H Lactic Acid 2.4 H* Lactic Acid F/U @ 2Hr Lactic Acid F/U @ 4Hr Calcium 8.3 L Magnesium 2.0 Total Bilirubin 0.3 Direct Bilirubin 0.2 AST 15 ALT 8 Alkaline Phosphatase 108 C-Reactive Protein 12.49 H B-Natriuretic Peptide 59 Total Protein 6.5 Albumin 2.6 L Urine Color Yellow Urine Appearance Clear Urine pH 6.5 Ur Specific [place] >= 1.030 H Urine Protein Negative Urine Glucose (UA) Negative Urine Ketones Negative Urine Blood Negative Urine Nitrite Negative Ur Leukocyte Esterase Negative Urine Opiates Screen Not Detected Urine Fentanyl Screen Not Detected Ur Barbiturates Screen Not Detected Ur Phencyclidine Scrn Not Detected Ur Amphetamines Screen Not Detected U Benzodiazepines Scrn Not Detected Urine Cocaine Screen Not Detected U Marijuana (THC) Screen Not Detected Ethyl Alcohol < 10 Influenza Type A (PCR) Influenza Type B (PCR) RSV RNA Qual (PCR) SARS-CoV-2 RNA (RT-PCR) 09/07/23 09/07/23 09/07/23 01:40 06:05 10:53 WBC 13.5 H RBC 3.53 L Hgb 9.6 L Hct 29.6 L MCV 83.9 MCH 27.2 MCHC 32.4 RDW 14.7 Plt Count 600 H MPV 8.7 L Immature Gran % (Auto) 0.4 Neut % (Auto) 76.1 H Lymph % (Auto) 14.[address] % (Auto) 7.4 Eos % (Auto) 1.0 Baso % (Auto) 0.2 Lymph # (Auto) 2.0 [place] # (Auto) 1.0 Eos # (Auto) 0.1 Baso # (Auto) 0.0 Abs Immat Gran (auto) 0.06 H Absolute Neuts (auto) 10.2 H Absolute Nucleated RBC 0.000 Nucleated RBC % (auto) 0.0 Smear Tech's Comments O2 Saturation ABG pH at Pt Temp ABG pCO2 at Pt Temp ABG pO2 at Pt Temp ABG HCO3 ABG Base Excess (Actual) Sodium 137 Potassium 3.2 L Chloride 108 Carbon Dioxide 24 Anion Gap 8 L BUN 3 L Creatinine 0.52 Estim Creat Clear Calc 133.3 Estimated GFR > 60 Random Glucose 113 Lactic Acid Lactic Acid F/U @ 2Hr 2.6 H* Lactic Acid F/U @ 4Hr 1.0 Calcium 7.9 L Magnesium Total Bilirubin 0.2 Direct Bilirubin AST 27 ALT 11 Alkaline Phosphatase 103 C-Reactive Protein B-Natriuretic Peptide Total Protein 5.8 L Albumin 2.4 L Urine Color Urine Appearance Urine pH Ur Specific [place] Urine Protein Urine Glucose (UA) Urine Ketones Urine Blood Urine Nitrite Ur Leukocyte Esterase Urine Opiates Screen Urine Fentanyl Screen Ur Barbiturates Screen Ur Phencyclidine Scrn Ur Amphetamines Screen U Benzodiazepines Scrn Urine Cocaine Screen U Marijuana (THC) Screen Ethyl Alcohol Influenza Type A (PCR) NEGATIVE Influenza Type B (PCR) NEGATIVE RSV RNA Qual (PCR) NEGATIVE SARS-CoV-2 RNA (RT-PCR) NEGATIVE 09/07/23 13:27 WBC RBC Hgb Hct MCV MCH MCHC RDW Plt Count MPV Immature Gran % (Auto) Neut % (Auto) Lymph % (Auto) [place] % (Auto) Eos % (Auto) Baso % (Auto) Lymph # (Auto) [facility] # (Auto) Eos # (Auto) Baso # (Auto) Abs Immat Gran (auto) Absolute Neuts (auto) Absolute Nucleated RBC Nucleated RBC % (auto) Smear Tech's Comments O2 Saturation 98.0 ABG pH at Pt Temp 7.44 ABG pCO2 at Pt Temp 31 L ABG pO2 at Pt Temp 98 ABG HCO3 21 L ABG Base Excess (Actual) -1.6 Sodium Potassium Chloride Carbon Dioxide Anion Gap BUN Creatinine Estim Creat Clear Calc Estimated GFR Random Glucose Lactic Acid Lactic Acid F/U @ 2Hr Lactic Acid F/U @ 4Hr Calcium Magnesium Total Bilirubin Direct Bilirubin AST ALT Alkaline Phosphatase C-Reactive Protein B-Natriuretic Peptide Total Protein Albumin Urine Color Urine Appearance Urine pH Ur Specific [place] Urine Protein Urine Glucose (UA) Urine Ketones Urine Blood Urine Nitrite Ur Leukocyte Esterase Urine Opiates Screen Urine Fentanyl Screen Ur Barbiturates Screen Ur Phencyclidine Scrn Ur Amphetamines Screen U Benzodiazepines Scrn Urine Cocaine Screen U Marijuana (THC) Screen Ethyl Alcohol Influenza Type A (PCR) Influenza Type B (PCR) RSV RNA Qual (PCR) SARS-CoV-2 RNA (RT-PCR) Imaging Radiology Impressions: ITS Impressions Chest X-Ray 09/06/23 20:00 IMPRESSION: Again, there is sequela of emphysema, with persistent left upper lobe thick-walled cavity. There is a superimposed mild to moderate left base infiltrate now appreciated. Recommend continued radiographic follow-up to clearance. Chest CT 09/06/23 22:11 IMPRESSION: Emphysema with large bulla/cavity with septations in the left upper lobe. There is adjacent parenchymal air bronchogram in left midlung likely consolidation/infiltrate. In the left lower lobe patchy airspace infiltrate. There is a new patchy density seen in the right upper lobe lateral segment compared to CT chest 08/15/2023. Mild left apical and basilar pleural thickening. Fleischner guidelines were followed. Mental Status Exam Mental Status Exam Narrative: Appearance: wearing hospital gown, poor hygiene, in NAD Behavior: guarded suspicious Minimally verbal, making hand gestures to indicate he can't talk. He has been talking earlier saying he is afraid. Appears overly fearful due to being internally preoccupied and paranoid delusions. Medications Medications Current Medications Acetaminophen (Acetaminophen 325 Mg Tablet) 650 mg PO Q6H PRN PRN Reason: Pain, Mild (Pain Scale 1-3) Albuterol/Ipratropium (Albuterol/Iprat 2.5/0.5mg 3 Ml Ampul.Neb) 3 ml INHALE RQ4H WHILE AWAKE [facility] Benzonatate (Benzonatate 100 Mg Capsule) 100 mg PO TID PRN PRN Reason: Cough Buspirone HCl (Buspirone Hcl 5 Mg Tablet) 7.5 mg PO BID [facility] Last Admin: 09/07/23 12:23 Dose: 7.5 mg Cyanocobalamin (Cyanocobalamin (Vitamin B-12) 500 Mcg Tablet) 500 mcg PO BID [facility] Folic Acid (Folic Acid 1 Mg Tablet) 1 mg PO DAILY [facility] Gabapentin (Gabapentin 100 Mg Capsule) 100 mg PO BID [facility] Guaifenesin (Guaifenesin La 600 Mg Tab.Er.12h) 600 mg PO BID [facility] Last Admin: 09/07/23 13:18 Dose: Not Given Heparin Sodium (Porcine) (Heparin Sodium,Porcine 5,000 Unit/Ml Vial) 5,000 unit SUBCUT Q8H [facility] Last Admin: 09/07/23 12:24 Dose: 5,000 unit Heparin Sodium (Porcine) (Heparin Sodium,Porcine 5,000 Unit/Ml Vial) 5,000 unit SUBCUT Q8H [facility] Last Admin: 09/07/23 12:24 Dose: Not Given Ceftriaxone Sodium 1 gm/ (Sodium Chloride) 50 mls @ 100 mls/hr IV 2200 [facility] Azithromycin 500 mg/ Sodium (Chloride) 250 mls @ 125 mls/hr IV 2000 [facility] Levalbuterol HCl (Levalbuterol Hcl 1.25 Mg/3 Ml Vial.Neb) 1.25 mg INHALE Q4H PRN PRN Reason: Shortness of Breath/Wheezing Last Admin: 09/07/23 12:52 Dose: 1.25 mg Megestrol Acetate (Megestrol Acetate 400 Mg/10 Ml Oral.Susp) 200 mg PO BID [facility] Methylprednisolone Sodium Succinate (Methylprednisolone Sod Succ 40 Mg/Ml Vial) 40 mg IVPUSH Q12H [facility] Last Admin: 09/07/23 13:09 Dose: 40 mg Mirtazapine (Mirtazapine 7.5 Mg Tablet) 7.5 mg PO BEDTIME [facility] Morphine Sulfate (Morphine Sulfate 2 Mg/Ml Cartridge) 2 mg IVPUSH Q6H PRN; Protocol PRN Reason: work of breathing Olanzapine (Olanzapine 10 Mg Tablet) 10 mg PO BEDTIME [facility] Polyethylene Glycol (Polyethylene Glycol 3350 17 Gm Powd.Pack) 17 gm PO BID PRN PRN Reason: Constipation Psyllium Hydrophilic Mucilloid (Psyllium Seed 3.7 Gm Packet) 3.7 gm PO DAILY [facility] Sodium Chloride (0.9 % Sodium Chloride Flush 3 Ml Syringe) 3 ml IVFLUSH QSHIFT [facility] Last Admin: 09/07/23 09:40 Dose: Not Given Tamsulosin HCl (Tamsulosin Hcl 0.4 Mg Capsule) 0.8 mg PO DAILY [facility] Thiamine HCl (Thiamine Hcl 100 Mg Tablet) 100 mg PO DAILY [facility] Allergies Allergies Allergy/AdvReac Type Severity Reaction Status Date / Time tree and shrub pollen Allergy Mild Rash Verified 09/06/23 19:33 Assessment & Plan Assessment & Plan (1) Schizophrenia: Status: Acute Code(s): F20.9 - Schizophrenia, unspecified Plan Mr. Esparza is a 67 year-old male with schizophrenia. Initially was brought on a sect 12 a and found to have acute on chronic respiratory failure and hypokalemia. Psychiatry asked to do capacity assessment. He currently DOES NOT HAVE capacity to make medical decisions in that he is not able to show understanding of medical conditions, appreciation of risk versus benefits and verbalize decisions. HCP form is in the chart. Recommend to invoke. In the meantime, psych will follow for treatment of underlying exacerbation of paranoid/psychosis. ONce medically clear will assess for need for inpt psych admission. PLAN 1. No capacity to make medical decisions 2. Increase olanzapine 15mg po qhs. if too sedating for patient will assess need to switch to different antipsychotic. 3. Add low dose haldol 5mg BID prn for agitation. Monitor EKG maintain Qtc<500ms, K>4, Mg>2. Total time managing care of this patient today ____ minutes.
[2023-09-07] MEDS: Azithromycin 500 MG in 0.9 % Sodium Chloride 250 ML 125 MG IV (20:44)
[2023-09-07] MEDS: guaiFENesin LA 600 MG TAB.ER.12H PO (20:45)
[2023-09-07] MEDS: Gabapentin 100 MG CAPSULE PO (20:46)
[2023-09-08] VITALS (10 sets, daily range): BP systolic 106–153; BP diastolic 52–65; PULSE 76–90; RESP 16–22; TEMP 36.3–37.2; O2SAT 97–100
[2023-09-08] MEDS: cefTRIAXone sodium 1 GM in 0.9 % Sodium Chloride 50 ML IV ×2 (00:21→20:52)
[2023-09-08] MEDS: 0.9 % Sodium Chloride Flush 3 ML SYRINGE IVFLUSH ×2 (00:24→08:02)
--- NOTE | 2023-09-08 00:27 | PC.NURSE ---
patients ivabx scheduled for 2199 not administered d/t previous abx running from previous shift. administered at 0020.
[2023-09-08] MEDS: methylPREDNISolone Sod Succ 40 MG/ML VIAL IVPUSH ×2 (00:56→12:51)
[2023-09-08] MEDS: Heparin Sodium,Porcine 5,000 UNIT/ML VIAL 5000 UNIT SUBCUT (04:28)
[2023-09-08 07:15] LABS: Hematocrit 31.6 % (42.0-52.0); Hemoglobin 9.8 g/dl (14.0-18.0); Mean Corpuscular Hemoglobin 26.8 pg (27.0-33.0); Mean Corpuscular Volume 86.6 fL (80.0-98.0); Mean Platelet Volume 9.5 fL (9.4-12.4); Platelet Count 549 X10*3/uL (160-400); Red Blood Count 3.65 X10*6/uL (4.60-5.80); Red Cell Distribution Width 15.1 % (11.0-16.0); White Blood Count 9.2 X10*3/uL (4.8-10.8)
[2023-09-08 07:30] LABS: Anion Gap 13 (12-20); Blood Urea Nitrogen 3 mg/dL (9-16); Calcium 8.3 mg/dL (8.4-10.2); Carbon Dioxide 19 mmol/L (22-29); Chloride 108 mmol/L (96-108); Creatinine Clr Calc Pharmacy 123.8; Estimated Glomerular Filt Rate > 60; Glucose Random 192 mg/dL (60-115); Potassium 4.2 mmol/L (3.3-5.1); Sodium 136 mmol/L (135-145)
[2023-09-08] MEDS: Morphine Sulfate 2 MG/ML CARTRIDGE IVPUSH (07:54)
[2023-09-08] MEDS: guaiFENesin LA 600 MG TAB.ER.12H PO ×2 (07:58→20:49)
[2023-09-08] MEDS: Albuterol/Iprat 2.5/0.5MG 3 ML AMPUL.NEB INHALE ×4 (08:08→20:11)
--- NOTE | 2023-09-08 10:35 | HO.PM.IMPN ---
Subjective Subjective Date of Service: 09/08/23 Interval History: seen and examined this morning follow up for pneumonia awake, alert; answers some questions does well with over explanation of what's going on and what's going to happen still reporting cough Review of Systems Review of Systems: Yes all other systems are reviewed and are negative Constitutional Constitutional: Denies chills and Denies fever(s) Respiratory Respiratory: Reports cough Gastrointestinal Gastrointestinal: Denies abdominal pain Physical Exam Vital Signs: Vital Signs: Last Vital Signs Temp 97.8 F 09/08/23 07:19 Pulse 76 09/08/23 08:09 Resp 18 09/08/23 08:09 BP 114/56 L 09/08/23 07:19 Pulse Ox 100 09/08/23 07:19 O2 Del Method Nasal Cannula 09/08/23 07:19 O2 Flow Rate 2 09/08/23 07:19 Oxygen Flow Rate 4 09/06/23 19:33 BMI result Body Mass Index 22.9 Const: Other: appears anxious and sob General: cooperative, comfortable, no acute distress, alert and awake Nutritional Appearance: thin Resp: Other: improved aeration; no wheezing Effort & Inspection: normal respiratory effort, no respiratory distress and no use of accessory muscles Cardio: Rate: regular rate GI: Inspection: No distended Palpation (GI): Soft to palpation and nontender Neuro: Other: awake, alert, following commands but doesn't answer all questions verbally Extrem: General: Yes no pedal edema Objective Data Active Medications Acetaminophen (Acetaminophen 325 Mg Tablet) 650 mg PO Q6H PRN PRN Reason: Pain, Mild (Pain Scale 1-3) Albuterol/Ipratropium (Albuterol/Iprat 2.5/0.5mg 3 Ml Ampul.Neb) 3 ml INHALE RQ4H WHILE AWAKE [facility] Last Admin: 09/08/23 08:08 Dose: 3 ml Documented By: ATUL Benzonatate (Benzonatate 100 Mg Capsule) 100 mg PO TID PRN PRN Reason: Cough Buspirone HCl (Buspirone Hcl 5 Mg Tablet) 7.5 mg PO BID [facility] Last Admin: 09/08/23 08:03 Dose: Not Given Documented By: ELIANE Non-Admin Reason: Patient Refused Cyanocobalamin (Cyanocobalamin (Vitamin B-12) 500 Mcg Tablet) 500 mcg PO BID [facility] Last Admin: 09/08/23 08:04 Dose: Not Given Documented By: ELIANE Non-Admin Reason: Patient Refused Folic Acid (Folic Acid 1 Mg Tablet) 1 mg PO DAILY [facility] Last Admin: 09/08/23 08:05 Dose: Not Given Documented By: ELIANE Non-Admin Reason: Patient Refused Gabapentin (Gabapentin 100 Mg Capsule) 100 mg PO BID [facility] Last Admin: 09/08/23 08:05 Dose: Not Given Documented By: ELIANE Non-Admin Reason: Patient Refused Guaifenesin (Guaifenesin La 600 Mg Tab.Er.12h) 600 mg PO BID [facility] Last Admin: 09/08/23 07:58 Dose: 600 mg Documented By: ELIANE Heparin Sodium (Porcine) (Heparin Sodium,Porcine 5,000 Unit/Ml Vial) 5,000 unit SUBCUT Q8H [facility] Last Admin: 09/08/23 04:28 Dose: 5,000 unit Documented By: PIERO Ceftriaxone Sodium 1 gm/ (Sodium Chloride) 50 mls @ 100 mls/hr IV 2200 [facility] Last Infusion: 09/08/23 00:51 Dose: Infused Documented By: PIERO Azithromycin 500 mg/ Sodium (Chloride) 250 mls @ 125 mls/hr IV 2000 [facility] Last Infusion: 09/07/23 22:46 Dose: Infused Documented By: MIA Levalbuterol HCl (Levalbuterol Hcl 1.25 Mg/3 Ml Vial.Neb) 1.25 mg INHALE Q4H PRN PRN Reason: Shortness of Breath/Wheezing Last Admin: 09/07/23 12:52 Dose: 1.25 mg Documented By: JUVE Megestrol Acetate (Megestrol Acetate 400 Mg/10 Ml Oral.Susp) 200 mg PO BID [facility] Last Admin: 09/08/23 08:05 Dose: Not Given Documented By: ELIANE Non-Admin Reason: Patient Refused Methylprednisolone Sodium Succinate (Methylprednisolone Sod Succ 40 Mg/Ml Vial) 40 mg IVPUSH Q12H [facility] Last Admin: 09/08/23 00:56 Dose: 40 mg Documented By: PIERO Mirtazapine (Mirtazapine 7.5 Mg Tablet) 7.5 mg PO BEDTIME [facility] Last Admin: 09/07/23 20:46 Dose: 7.5 mg Documented By: LINA Morphine Sulfate (Morphine Sulfate 2 Mg/Ml Cartridge) 2 mg IVPUSH Q6H PRN; Protocol PRN Reason: work of breathing Last Admin: 09/08/23 07:54 Dose: 2 mg Documented By: ELIANE Olanzapine (Olanzapine 10 Mg Tablet) 10 mg PO BEDTIME [facility] Last Admin: 09/07/23 20:45 Dose: 10 mg Documented By: LINA Polyethylene Glycol (Polyethylene Glycol 3350 17 Gm Powd.Pack) 17 gm PO BID PRN PRN Reason: Constipation Psyllium Hydrophilic Mucilloid (Psyllium Seed 3.7 Gm Packet) 3.7 gm PO DAILY [facility] Last Admin: 09/08/23 08:05 Dose: Not Given Documented By: ELIANE Non-Admin Reason: Patient Refused Sodium Chloride (0.9 % Sodium Chloride Flush 3 Ml Syringe) 3 ml IVFLUSH QSHIFT [facility] Last Admin: 09/08/23 08:02 Dose: 3 ml Documented By: ELIANE Tamsulosin HCl (Tamsulosin Hcl 0.4 Mg Capsule) 0.8 mg PO DAILY [facility] Last Admin: 09/08/23 08:05 Dose: Not Given Documented By: ELIANE Non-Admin Reason: Patient Refused Thiamine HCl (Thiamine Hcl 100 Mg Tablet) 100 mg PO DAILY [facility] Last Admin: 09/08/23 08:05 Dose: Not Given Documented By: ELIANE Non-Admin Reason: Patient Refused Labs 09/08/23 06:46 09/08/23 06:46 Labs: Laboratory Results - last 24 hr 09/07/23 09/07/23 09/08/23 10:53 13:27 06:46 MCV 83.9 86.6 MCH 27.2 26.8 L MCHC 32.4 31.0 RDW 14.7 15.1 Plt Count 600 H 549 H MPV 8.7 L 9.5 Immature Gran % (Auto) 0.4 Neut % (Auto) 76.1 H Lymph % (Auto) 14.9 L [place] % (Auto) 7.4 Eos % (Auto) 1.0 Baso % (Auto) 0.2 Lymph # (Auto) 2.0 [place] # (Auto) 1.0 Eos # (Auto) 0.1 Baso # (Auto) 0.0 Abs Immat Gran (auto) 0.06 H Absolute Neuts (auto) 10.2 H Absolute Nucleated RBC 0.000 0.000 Nucleated RBC % (auto) 0.0 0.0 O2 Saturation 98.0 ABG pH at Pt Temp 7.44 ABG pCO2 at Pt Temp 31 L ABG pO2 at Pt Temp 98 ABG HCO3 21 L ABG Base Excess (Actual) -1.6 Anion Gap 8 L 13 Estim Creat Clear Calc 133.3 123.8 Estimated GFR > 60 > 60 Random Glucose 113 192 H Lactic Acid F/U @ 4Hr 1.0 Calcium 7.9 L 8.3 L Total Bilirubin 0.2 AST 27 ALT 11 Alkaline Phosphatase 103 Total Protein 5.8 L Albumin 2.4 L Microbiology Microbiology Results: Microbiology 09/06/23 21:53 Blood Culture - Preliminary Blood - Venous No growth after 24 hours. 09/06/23 21:53 Blood Culture - Preliminary Blood - Venous No growth after 24 hours. Assessment and Plan (1) Schizophrenia: Status: Acute (2) Pneumonia: Status: Acute (3) COPD (chronic obstructive pulmonary disease): Status: Acute Plan This is a 67 years old male with history of chronic respiratory failure/COPD on 4 L of supplemental oxygen, it, tobacco dependence fountain on Section 12 as the patient has reportedly been doing poorly over the past several weeks and has been having increasing paranoia, decreased p.o. intake and weight loss. Acute on chronic respiratory failure due to acute COPD exacerbation and pneumonia uses 4L at baseline abg ok bnp low flu, covid, rsv negative anxiety/decompensated schizophrenia appears to be playing a role in tachycardia and increased wob. improved with morphine agreeable to care if steps are explained and with reassurance Community-acquired pneumonia. Continue azithromycin and ceftriaxone, started 09/07 Supplemental oxygen as needed to keep oxygen saturation over 90%. blood cultures negative to date acute copd exacerbation continue solu medrol scheduled and prn breathing treatments continue baseline supplemental oxygen Schizophrenia, decompensated brought in on section 12 continue baseline mirtazapine and BuSpar. seen by psych - recommend to increase olanzapine to 15mg, prn haldol for agitation if needed currently does not have capacity to make medical decisions will need care team for LOC when medically cleared psych following dysphagia seen by speech, rec NDD2 see full note for recs hypokalemia improving with replacement mag wnl Elevated lactic acid; possible secondary to volume depletion (specific gravity in urine is elevated). There was no leukocytosis, tachycardia or hypotension at time of admission. Doubt sepsis. Blood cultures were obtained. Patient became tachycardic likely due to combination of anxiety, breathing treatments. Anemia, chronic. Continue to monitor hemoglobin. VTE prophylaxis: Heparin subcu Code status: Presumed full code. attending - dr. hopkins dispo: patient brought in on section 12. seen by Psych - does not have capacity to make medical decisions at this time patient requires ongoing inpatient stay for community-acquired pneumonia and COPD exacerbation treatment with oxygen and IV antibiotics. Quality Stroke Does the patient have a stroke diagnosis?: No VTE Prior VTE?: No VTE Risk Level:: Medical - moderate - high VTE Device Contraindication: Treatment Not Indicated VTE Drug Contraindication: N/A - Med Ordered
--- NOTE | 2023-09-08 11:08 | P.CDIM_ITS ---
PROVIDER RESPONSE TEXT: To clarify, the appropriate diagnosis supported by the clinical indicators: Acute lactic acidosis QUERY TEXT: PHYSICIAN'S DOCUMENTATION REQUEST Date of Query: 09/08/2023 07:52 AM EST Patient Name: Joaquín Esparza Admit Date: 09/07/2023 Dear Nova Gordillo, A review of the medical record indicates additional documentation may be needed. Please review below and update the documentation accordingly. Clinical Indicators: H&P: Assessment and plan - elevated lactic acid; possible secondary to volume depletion. Will order IVF's and recheck lactic acid. LA 2.4 2.6 Based on the above, is there a diagnosis that correlates with these lab findings: Acute lactic acidosis Labs indicate a diagnosis of (please specify) Other (explain) Clinically unable to determine (explain) Thank you, Laura Joe, CCS, CDIS Use of terms such as suspected, likely, concern for, or probable (associated with a specific diagnosi s that is being evaluated, monitored, or treated as if it exists) are acceptable and can be coded in the inpatient se tting, when documented at the time of discharge. Please use your independent medical judgment in providing your response. THIS QUERY IS PART OF THE PERMANENT MEDICAL RECORD
--- NOTE | 2023-09-08 12:00 | MHC.CM.PN ---
EMR reviewed and per MD rounds, pt is not medically cleared for D/C due to management of COPD exacerbation and community acquired pneumonia. Per psych consult, pt lacks capacity, and pts HCP is invoked. This CM received a call from [facility] worker Nirmala ([phone]: [phone]). Nirmala would like us to notify them of pts D/C plan.
--- NOTE | 2023-09-08 13:42 | MHC.SL.SWA ---
Speech Pathologist Impression: Oral phase dysphagia Risk of Aspiration Due to: History of Pneumonia Poor PO Intake Reduced Cognition Weak Voice Dysphasia Diet Status: No changes Liquid Consistency and Strategies for Safe Swallow: Liquid Intake Recommendation: Thin Liquid Intake Strategies: Small Sips Solid Food Consistency: Dietary Recommendations: Grnd/Mech Altered (NDD2) Additional Modifications to Solid Foods: Pt appears to be on safest, least restrictive diet textures at this time. Further ST intervention is no longer warranted. Given pt's impulsivity while feeding himself and tendency to pack his mouth with food, recommend continue with supervised meals and aspiration precautions. Please re-refer with any changes or if [facility] can be of further assistance. Oral Medication Intake: Whole with Liquid Please contact the pharmacy regarding appropriate crushable or liquid drug formulations that are available whenever modified delivery is recommended. Compensatory Strategies and Precautions to be Taken for Safe Swallow: Sitting Upright (90 deg) Small Bites and Sips Rate of Ingestion Change Avoid Specific Foods Supervision While Eating and Drinking for Safe Swallow: Total Supervision (1:1) Foods to Avoid: Tough, dificult to chew solids, crunchy/crumbly textures. Swallowing Recommended Treatments: Compens. Strategy Educat. Recommendation for Speech: D/C Comment: Patient presents with a mild to moderate oral phase dysphagia due to poor/broken/decayed dentition and disorganized chewing/lingual pattern. Due to noted behaviors (packing food in mouth), patient will need 1-1 supervision during all meals. Pediatric Physiatrist Clinican/Clinical Fellow: No Supervisory Statement: I have reviewed and agree with the student/clinical fellow's documentation: N/A Speech Language Pathologist: Vania Pickett M.A., CCC-[facility]
[2023-09-08] MEDS: Megestrol Acetate 400 MG/10 ML ORAL.SUSP 200 MG PO (20:47)
[2023-09-08] MEDS: OLANZapine 7.5 MG TABLET 15 MG PO (20:48)
[2023-09-08] MEDS: Gabapentin 100 MG CAPSULE PO (20:49)
[2023-09-08] MEDS: busPIRone HCl 5 MG TABLET 7.5 MG PO (20:49)
[2023-09-08] MEDS: Azithromycin 500 MG in 0.9 % Sodium Chloride 250 ML 125 MG IV (20:50)
[2023-09-08] MEDS: Cyanocobalamin (Vitamin B-12) 500 MCG TABLET PO (20:50)
[2023-09-08] MEDS: Mirtazapine 7.5 MG TABLET PO (20:50)
[2023-09-09] MEDS: 0.9 % Sodium Chloride Flush 3 ML SYRINGE IVFLUSH ×3 (00:23→15:38)
[2023-09-09] MEDS: methylPREDNISolone Sod Succ 40 MG/ML VIAL IVPUSH ×2 (00:23→13:23)
[2023-09-09 03:30] VITALS: BP 128/56; PULSE 70; RESP 20; TEMP 36.1; O2SAT 98
--- NOTE | 2023-09-09 08:57 | HO.PM.IMPN ---
Subjective Subjective Date of Service: 09/09/23 Interval History: seen and examined this morning follow up for pneumonia, hypoxia Interval history: somnolent but arousable. not agreeable to interview/exam, swatting provider away. Does allow for lung exam Review of Systems Review of Systems: Yes all other systems are reviewed and are negative Constitutional Constitutional: Denies chills and Denies fever(s) Respiratory Respiratory: Reports cough Gastrointestinal Gastrointestinal: Denies abdominal pain Physical Exam Vital Signs: Vital Signs: Last Vital Signs Temp 97 F 09/09/23 03:30 Pulse 70 09/09/23 03:30 Resp 20 09/09/23 03:30 BP 128/56 L 09/09/23 03:30 Pulse Ox 98 09/09/23 03:30 O2 Del Method Room Air 09/09/23 08:00 O2 Flow Rate 4 09/09/23 03:30 Oxygen Flow Rate 4 09/06/23 19:33 BMI result Body Mass Index 22.9 Constitutional - somnolent but arousable, No apparent distress Eyes - PERRLA, EOMI Cardiovascular - S1S2, RRR, No edema Respiratory - Normal lung expansion, Normal respiratory effort, No respiratory distress, CTA bilaterally Extremities - no calf tenderness bilaterally, no swelling Skin - Warm/Dry Neurological - somnolent but arousable, slightly aggitated when awoken, not answering questions, swatting provider away Objective Data Active Medications Acetaminophen (Acetaminophen 325 Mg Tablet) 650 mg PO Q6H PRN PRN Reason: Pain, Mild (Pain Scale 1-3) Albuterol/Ipratropium (Albuterol/Iprat 2.5/0.5mg 3 Ml Ampul.Neb) 3 ml INHALE RQ4H WHILE AWAKE [facility] Last Admin: 09/08/23 20:11 Dose: 3 ml Documented By: TAQUERIA Benzonatate (Benzonatate 100 Mg Capsule) 100 mg PO TID PRN PRN Reason: Cough Buspirone HCl (Buspirone Hcl 5 Mg Tablet) 7.5 mg PO BID [facility] Last Admin: 09/08/23 20:49 Dose: 7.5 mg Documented By: DWIGHT Cyanocobalamin (Cyanocobalamin (Vitamin B-12) 500 Mcg Tablet) 500 mcg PO BID [facility] Last Admin: 09/08/23 20:50 Dose: 500 mcg Documented By: DWIGHT Folic Acid (Folic Acid 1 Mg Tablet) 1 mg PO DAILY [facility] Last Admin: 09/08/23 08:05 Dose: Not Given Documented By: ELIANE Non-Admin Reason: Patient Refused Gabapentin (Gabapentin 100 Mg Capsule) 100 mg PO BID [facility] Last Admin: 09/08/23 20:49 Dose: 100 mg Documented By: DWIGHT Guaifenesin (Guaifenesin La 600 Mg Tab.Er.12h) 600 mg PO BID [facility] Last Admin: 09/08/23 20:49 Dose: 600 mg Documented By: DWIGHT Heparin Sodium (Porcine) (Heparin Sodium,Porcine 5,000 Unit/Ml Vial) 5,000 unit SUBCUT Q8H [facility] Last Admin: 09/09/23 06:43 Dose: Not Given Documented By: SEAN Non-Admin Reason: Patient Refused Ceftriaxone Sodium 1 gm/ (Sodium Chloride) 50 mls @ 100 mls/hr IV 2200 [facility] Last Infusion: 09/08/23 22:53 Dose: Infused Documented By: DWIGHT Azithromycin 500 mg/ Sodium (Chloride) 250 mls @ 125 mls/hr IV 2000 [facility] Last Infusion: 09/08/23 22:53 Dose: Infused Documented By: DWIGHT Levalbuterol HCl (Levalbuterol Hcl 1.25 Mg/3 Ml Vial.Neb) 1.25 mg INHALE Q4H PRN PRN Reason: Shortness of Breath/Wheezing Last Admin: 09/07/23 12:52 Dose: 1.25 mg Documented By: JUVE Megestrol Acetate (Megestrol Acetate 400 Mg/10 Ml Oral.Susp) 200 mg PO BID [facility] Last Admin: 09/08/23 20:47 Dose: 200 mg Documented By: DWIGHT Methylprednisolone Sodium Succinate (Methylprednisolone Sod Succ 40 Mg/Ml Vial) 40 mg IVPUSH Q12H [facility] Last Admin: 09/09/23 00:23 Dose: 40 mg Documented By: SEAN Mirtazapine (Mirtazapine 7.5 Mg Tablet) 7.5 mg PO BEDTIME [facility] Last Admin: 09/08/23 20:50 Dose: 7.5 mg Documented By: DWIGHT Morphine Sulfate (Morphine Sulfate 2 Mg/Ml Cartridge) 2 mg IVPUSH Q6H PRN; Protocol PRN Reason: work of breathing Last Admin: 09/08/23 07:54 Dose: 2 mg Documented By: ELIANE Olanzapine (Olanzapine 7.5 Mg Tablet) 15 mg PO BEDTIME [facility] Last Admin: 09/08/23 20:48 Dose: 15 mg Documented By: DWIGHT Polyethylene Glycol (Polyethylene Glycol 3350 17 Gm Powd.Pack) 17 gm PO BID PRN PRN Reason: Constipation Psyllium Hydrophilic Mucilloid (Psyllium Seed 3.7 Gm Packet) 3.7 gm PO DAILY [facility] Last Admin: 09/08/23 08:05 Dose: Not Given Documented By: ELIANE Non-Admin Reason: Patient Refused Sodium Chloride (0.9 % Sodium Chloride Flush 3 Ml Syringe) 3 ml IVFLUSH QSHIFT [facility] Last Admin: 09/09/23 00:23 Dose: 3 ml Documented By: SEAN Tamsulosin HCl (Tamsulosin Hcl 0.4 Mg Capsule) 0.8 mg PO DAILY [facility] Last Admin: 09/08/23 08:05 Dose: Not Given Documented By: ELIANE Non-Admin Reason: Patient Refused Thiamine HCl (Thiamine Hcl 100 Mg Tablet) 100 mg PO DAILY [facility] Last Admin: 09/08/23 08:05 Dose: Not Given Documented By: ELIANE Non-Admin Reason: Patient Refused Labs 09/08/23 06:46 09/08/23 06:46 Microbiology Microbiology Results: Microbiology 09/06/23 21:53 Blood Culture - Preliminary Blood - Venous No growth after 48 hours. 09/06/23 21:53 Blood Culture - Preliminary Blood - Venous No growth after 48 hours. Assessment and Plan (1) Schizophrenia: Status: Acute (2) Pneumonia: Status: Acute (3) COPD (chronic obstructive pulmonary disease): Status: Acute Plan This is a 67 years old male with history of chronic respiratory failure/COPD on 4 L of supplemental oxygen, it, tobacco dependence fountain on Section 12 as the patient has reportedly been doing poorly over the past several weeks and has been having increasing paranoia, decreased p.o. intake and weight loss. Acute on chronic respiratory failure due to acute COPD exacerbation and pneumonia uses 4L at baseline abg ok bnp low flu, covid, rsv negative anxiety/decompensated schizophrenia appears to be playing a role in tachycardia and increased wob. improved with morphine agreeable to care if steps are explained and with reassurance. Unfortunately pt continues to refuse PO meds 09/09 despite redirection/explanation. Will continue IV steroids/abx Community-acquired pneumonia. Continue azithromycin and ceftriaxone, started 09/07. Change to PO cefuroxime and doxycycline (09/09) x5 days Supplemental oxygen as needed to keep oxygen saturation over 90%. blood cultures negative to date acute copd exacerbation Improved, supplemental O2 at baseline Change to prednisone am scheduled and prn breathing treatments continue maintenance inhalers continue baseline supplemental oxygen Schizophrenia, decompensated brought in on section 12 continue baseline mirtazapine and BuSpar. seen by psych - recommend to increase olanzapine to 15mg, prn haldol for agitation if needed currently does not have capacity to make medical decisions will need care team for LOC when medically cleared psych following dysphagia seen by speech, rec NDD2 see full note for recs hypokalemia improving with replacement mag wnl Elevated lactic acid; possible secondary to volume depletion (specific gravity in urine is elevated). There was no leukocytosis, tachycardia or hypotension at time of admission. Doubt sepsis. Blood cultures were obtained. Patient became tachycardic likely due to combination of anxiety, breathing treatments. Anemia, chronic. Continue to monitor hemoglobin. VTE prophylaxis: Heparin subcu Code status: Presumed full code. dispo: patient brought in on section 12. seen by Psych - does not have capacity to make medical decisions at this time patient requires ongoing inpatient stay for community-acquired pneumonia and COPD exacerbation treatment with oxygen and IV antibiotics. Will need care team consult for LOC Quality Stroke Does the patient have a stroke diagnosis?: No VTE Prior VTE?: No VTE Risk Level:: Medical - moderate - high VTE Device Contraindication: Treatment Not Indicated VTE Drug Contraindication: N/A - Med Ordered
[2023-09-09] MEDS: Albuterol/Iprat 2.5/0.5MG 3 ML AMPUL.NEB INHALE ×2 (11:24→15:28)
[2023-09-09 11:58] VITALS: BP 124/59; PULSE 79; RESP 16; TEMP 36.8; O2SAT 100
[2023-09-09 15:39] VITALS: BP 145/69; PULSE 84; RESP 20; TEMP 35.9; O2SAT 100
[2023-09-09 19:39] VITALS: BP 123/58; PULSE 84; RESP 18; TEMP 36.4; O2SAT 100
[2023-09-09] MEDS: 0.9 % Sodium Chloride 1,000 ML 75 ML IVCONT (19:41)
[2023-09-09] MEDS: Ampicillin Sodium/Sulbactam Na 3 GM in 0.9 % Sodium Chloride 100 ML IV (19:41)
[2023-09-09] MEDS: Azithromycin 500 MG in 0.9 % Sodium Chloride 250 ML 125 MG IV (21:23)
[2023-09-09 23:40] VITALS: PULSE 114; RESP 24; TEMP 36.1; O2SAT 98
[2023-09-10] VITALS (9 sets, daily range): BP systolic 123–171; BP diastolic 65–85; PULSE 79–97; RESP 16–24; TEMP 35.7–36.9; O2SAT 91–100
[2023-09-10] MEDS: Ampicillin Sodium/Sulbactam Na 3 GM in 0.9 % Sodium Chloride 100 ML IV ×4 (00:04→17:46)
[2023-09-10] MEDS: methylPREDNISolone Sod Succ 40 MG/ML VIAL IVPUSH ×2 (00:05→11:34)
[2023-09-10] MEDS: Haloperidol Lactate 5 MG/ML VIAL IM (04:20)
[2023-09-10 07:45] LABS: Basophils Percent Auto 0.2 % (0-2); Eosinophils Percent Auto 0.1 % (0-4); Hematocrit 34.3 % (42.0-52.0); Hemoglobin 10.7 g/dl (14.0-18.0); Imm Gran Abs Auto 0.23 X10*3/uL (0.00-0.03); Imm Gran Pct Auto 1.3 % (0.0-0.4); Lymphocytes Absolute Auto 0.9 X10*3/uL (1.2-4.9); MANUAL DIFF FLAG SCAN; Mean Corpuscular HGB Conc 31.2 g/dl (31.0-36.0); Mean Corpuscular Hemoglobin 26.6 pg (27.0-33.0); Mean Corpuscular Volume 85.3 fL (80.0-98.0); Mean Platelet Volume 9.4 fL (9.4-12.4); Monocytes Absolute Auto 0.4 X10*3/uL (0.1-1.2); Neutrophils Absolute Auto 15.9 x10*3/uL (2.0-8.3); Neutrophils Percent Auto 91.4 % (45-73); Platelet Count 524 X10*3/uL (160-400); Red Blood Count 4.02 X10*6/uL (4.60-5.80); Red Cell Distribution Width 15.2 % (11.0-16.0); SCAN SMEAR FLAG 1; White Blood Count 17.4 X10*3/uL (4.8-10.8)
[2023-09-10] MEDS: Albuterol/Iprat 2.5/0.5MG 3 ML AMPUL.NEB INHALE ×3 (08:04→19:37)
[2023-09-10 08:10] LABS: SLIDE REVIEW VERIFIED
[2023-09-10 08:15] LABS: Anion Gap 12 (12-20); Blood Urea Nitrogen 6 mg/dL (9-16); Calcium 8.5 mg/dL (8.4-10.2); Carbon Dioxide 24 mmol/L (22-29); Chloride 106 mmol/L (96-108); Creatinine Clr Calc Pharmacy 130.8; Estimated Glomerular Filt Rate > 60; Glucose Random 118 mg/dL (60-115); Potassium 4.6 mmol/L (3.3-5.1); Sodium 137 mmol/L (135-145)
--- NOTE | 2023-09-10 11:35 | HO.PM.IMPN ---
Subjective Subjective Date of Service: 09/10/23 Interval History: Was very anxious this morning, hyperventilating refusing care, and only wanting water which reportedly he has been chocking on on reassesment he is much calmer Physical Exam Vital Signs: Vital Signs: Last Vital Signs Temp 98.1 F 09/10/23 07:15 Pulse 97 09/10/23 07:15 Resp 24 H 09/10/23 07:15 BP 171/78 H 09/10/23 07:15 Pulse Ox 91 L 09/10/23 07:15 O2 Del Method Nasal Cannula 09/10/23 08:00 O2 Flow Rate 2 09/10/23 07:15 Oxygen Flow Rate 4 09/06/23 19:33 BMI result Body Mass Index 22.9 Constitutional - awake, alert earlier was anxious, but calmer now Eyes - PERRLA, EOMI Cardiovascular - S1S2, RRR, No edema Respiratory - Normal lung expansion, Normal respiratory effort, No respiratory distress, CTA bilaterally , no wheezing Extremities - no calf tenderness bilaterally, no swelling Skin - Warm/Dry Neurological - somnolent but arousable, slightly aggitated when awoken, not answering questions, swatting provider away Objective Data Active Medications Acetaminophen (Acetaminophen 325 Mg Tablet) 650 mg PO Q6H PRN PRN Reason: Pain, Mild (Pain Scale 1-3) Albuterol/Ipratropium (Albuterol/Iprat 2.5/0.5mg 3 Ml Ampul.Neb) 3 ml INHALE RQ4H WHILE AWAKE [facility] Last Admin: 09/10/23 08:04 Dose: 3 ml Documented By: ERIC Benzonatate (Benzonatate 100 Mg Capsule) 100 mg PO TID PRN PRN Reason: Cough Buspirone HCl (Buspirone Hcl 5 Mg Tablet) 7.5 mg PO BID [facility] Last Admin: 09/10/23 08:21 Dose: Not Given Documented By: PAUL Non-Admin Reason: NPO Cyanocobalamin (Cyanocobalamin (Vitamin B-12) 500 Mcg Tablet) 500 mcg PO BID [facility] Last Admin: 09/10/23 08:21 Dose: Not Given Documented By: PAUL Non-Admin Reason: NPO Folic Acid (Folic Acid 1 Mg Tablet) 1 mg PO DAILY [facility] Last Admin: 09/10/23 08:21 Dose: Not Given Documented By: PAUL Non-Admin Reason: NPO Gabapentin (Gabapentin 100 Mg Capsule) 100 mg PO BID [facility] Last Admin: 09/10/23 08:21 Dose: Not Given Documented By: PAUL Non-Admin Reason: NPO Guaifenesin (Guaifenesin La 600 Mg Tab.Er.12h) 600 mg PO BID [facility] Last Admin: 09/10/23 08:21 Dose: Not Given Documented By: PAUL Non-Admin Reason: NPO Heparin Sodium (Porcine) (Heparin Sodium,Porcine 5,000 Unit/Ml Vial) 5,000 unit SUBCUT Q8H [facility] Last Admin: 09/10/23 11:30 Dose: Not Given Documented By: PAUL Non-Admin Reason: Patient Refused Azithromycin 500 mg/ Sodium (Chloride) 250 mls @ 125 mls/hr IV 2000 [facility] Last Infusion: 09/09/23 23:37 Dose: Infused Documented By: LUIS MIGUEL Ampicillin Sodium/Sulbactam (Sodium 3 gm/ Sodium Chloride) 100 mls @ 200 mls/hr IV Q6H [facility] Last Admin: 09/10/23 11:34 Dose: 200 mls/hr Documented By: PAUL Sodium Chloride (Ns) 1,000 mls @ 75 mls/hr IVCONT .[id number] [facility] Last Admin: 09/10/23 08:21 Dose: Not Given Documented By: PAUL Non-Admin Reason: bag still full Levalbuterol HCl (Levalbuterol Hcl 1.25 Mg/3 Ml Vial.Neb) 1.25 mg INHALE Q4H PRN PRN Reason: Shortness of Breath/Wheezing Last Admin: 09/07/23 12:52 Dose: 1.25 mg Documented By: JUVE Megestrol Acetate (Megestrol Acetate 400 Mg/10 Ml Oral.Susp) 200 mg PO BID [facility] Last Admin: 09/10/23 08:22 Dose: Not Given Documented By: PAUL Non-Admin Reason: NPO Methylprednisolone Sodium Succinate (Methylprednisolone Sod Succ 40 Mg/Ml Vial) 40 mg IVPUSH Q12H [facility] Last Admin: 09/10/23 11:34 Dose: 40 mg Documented By: PAUL Mirtazapine (Mirtazapine 7.5 Mg Tablet) 7.5 mg PO BEDTIME [facility] Last Admin: 09/09/23 22:49 Dose: Not Given Documented By: LUIS MIGUEL Non-Admin Reason: MD BERNICE aware Morphine Sulfate (Morphine Sulfate 2 Mg/Ml Cartridge) 2 mg IVPUSH Q6H PRN; Protocol PRN Reason: work of breathing Last Admin: 09/08/23 07:54 Dose: 2 mg Olanzapine (Olanzapine 7.5 Mg Tablet) 15 mg PO BEDTIME [facility] Last Admin: 09/09/23 22:49 Dose: Not Given Documented By: LUIS MIGUEL Non-Admin Reason: MD BERNICE aware Polyethylene Glycol (Polyethylene Glycol 3350 17 Gm Powd.Pack) 17 gm PO BID PRN PRN Reason: Constipation Psyllium Hydrophilic Mucilloid (Psyllium Seed 3.7 Gm Packet) 3.7 gm PO DAILY [facility] Last Admin: 09/10/23 08:22 Dose: Not Given Documented By: PAUL Non-Admin Reason: NPO Sodium Chloride (0.9 % Sodium Chloride Flush 3 Ml Syringe) 3 ml IVFLUSH QSHIFT [facility] Last Admin: 09/10/23 08:21 Dose: Not Given Documented By: PAUL Non-Ganga Reason: IV Running Tamsulosin HCl (Tamsulosin Hcl 0.4 Mg Capsule) 0.8 mg PO DAILY [facility] Last Admin: 09/10/23 08:22 Dose: Not Given Documented By: PAUL Non-Admin Reason: NPO Thiamine HCl (Thiamine Hcl 100 Mg Tablet) 100 mg PO DAILY [facility] Last Admin: 09/10/23 08:22 Dose: Not Given Documented By: PAUL Non-Admin Reason: NPO Labs 09/10/23 07:38 09/10/23 07:38 Labs: Laboratory Results - last 24 hr 09/10/23 07:38 MCV 85.3 MCH 26.6 L MCHC 31.2 RDW 15.2 Plt Count 524 H MPV 9.4 Immature Gran % (Auto) 1.3 H Neut % (Auto) 91.4 H Lymph % (Auto) 5.0 L Wilkes % (Auto) 2.0 Eos % (Auto) 0.1 Baso % (Auto) 0.2 Lymph # (Auto) 0.9 L Wilkes # (Auto) 0.4 Eos # (Auto) 0.0 Baso # (Auto) 0.0 Abs Immat Gran (auto) 0.23 H Absolute Neuts (auto) 15.9 H Absolute Nucleated RBC 0.000 Nucleated RBC % (auto) 0.0 Smear Tech's Comments VERIFIED Anion Gap 12 Estim Creat Clear Calc 130.8 Estimated GFR > 60 Random Glucose 118 H Calcium 8.5 Assessment and Plan (1) Schizophrenia: Status: Acute (2) Pneumonia: Status: Acute (3) COPD (chronic obstructive pulmonary disease): Status: Acute Plan This is a 67 years old male with history of chronic respiratory failure/COPD on 4 L of supplemental oxygen, it, tobacco dependence fountain on Section 12 as the patient has reportedly been doing poorly over the past several weeks and has been having increasing paranoia, decreased p.o. intake and weight loss. Acute on chronic respiratory failure with hypoxia due to acute COPD exacerbation and pneumonia uses 4L at baseline abg ok bnp low flu, covid, rsv negative anxiety/decompensated schizophrenia appears to be playing a role in tachycardia and increased wob and seems to improved with morphine agreeable to care if steps are explained and with reassurance. Unfortunately pt continues to refuse PO meds 09/09 despite redirection/explanation. Will continue IV steroids/abx Community-acquired pneumonia with concern for aspiration PNA as well was on Azithro + ceftriaxone, Unassyn added 09/09. DC Azithrom for now Supplemental oxygen as needed to keep oxygen saturation over 90%. blood cultures negative to date acute copd exacerbation Improved, supplemental O2 at baseline Change to prednisone when taking PO scheduled and prn breathing treatments continue maintenance inhalers continue baseline supplemental oxygen Schizophrenia, decompensated brought in on section 12 continue baseline mirtazapine and BuSpar. seen by psych - recommend to increase olanzapine to 15mg, prn haldol for agitation if needed currently does not have capacity to make medical decisions will need care team for LOC when medically cleared psych following dysphagia seen by speech, rec NDD2 see full note for recs hypokalemia improving with replacement mag wnl Leukocytosis due to steroid Elevated lactic acid; possible secondary to volume depletion (specific gravity in urine is elevated). There was no leukocytosis, tachycardia or hypotension at time of admission. Doubt sepsis. Blood cultures were obtained. Patient became tachycardic likely due to combination of anxiety, breathing treatments. Anemia, chronic. Continue to monitor hemoglobin. Mild protein calory malnutrition, poor intake, and aspiration on water speech to reassess tomorrow VTE prophylaxis: Heparin subcu Code status: Presumed full code. dispo: patient brought in on section 12. seen by Psych - does not have capacity to make medical decisions at this time patient requires ongoing inpatient stay for community-acquired pneumonia and COPD exacerbation treatment with oxygen and IV antibiotics. Will need care team consult for LOC Quality Stroke Does the patient have a stroke diagnosis?: No VTE Prior VTE?: No VTE Risk Level:: Medical - moderate - high VTE Device Contraindication: Treatment Not Indicated VTE Drug Contraindication: N/A - Med Ordered
[2023-09-10] MEDS: Azithromycin 500 MG in 0.9 % Sodium Chloride 250 ML 125 MG IV (21:48)
[2023-09-10] MEDS: Gabapentin 100 MG CAPSULE PO (21:59)
[2023-09-10] MEDS: busPIRone HCl 5 MG TABLET 7.5 MG PO (21:59)
[2023-09-10] MEDS: Cyanocobalamin (Vitamin B-12) 500 MCG TABLET PO (21:59)
[2023-09-10] MEDS: OLANZapine 7.5 MG TABLET 15 MG PO (21:59)
[2023-09-10] MEDS: Mirtazapine 7.5 MG TABLET PO (21:59)
[2023-09-10] MEDS: guaiFENesin LA 600 MG TAB.ER.12H PO (21:59)
[2023-09-10] MEDS: Heparin Sodium,Porcine 5,000 UNIT/ML VIAL 5000 UNIT SUBCUT (22:08)
[2023-09-10] MEDS: Megestrol Acetate 400 MG/10 ML ORAL.SUSP 200 MG PO (22:10)
[2023-09-11] MEDS: 0.9 % Sodium Chloride 1,000 ML 75 ML IVCONT ×2 (00:53→11:01)
[2023-09-11] MEDS: Ampicillin Sodium/Sulbactam Na 3 GM in 0.9 % Sodium Chloride 100 ML IV ×2 (00:55→06:09)
[2023-09-11] MEDS: methylPREDNISolone Sod Succ 40 MG/ML VIAL IVPUSH (00:55)
[2023-09-11] MEDS: 0.9 % Sodium Chloride Flush 3 ML SYRINGE IVFLUSH (00:56)
[2023-09-11 04:00] VITALS: BP 132/66; PULSE 77; RESP 18; TEMP 37.2; O2SAT 100
[2023-09-11] MEDS: Heparin Sodium,Porcine 5,000 UNIT/ML VIAL 5000 UNIT SUBCUT (06:09)
--- NOTE | 2023-09-11 06:50 | PC.NURSE ---
Assumed care of patient at 2345. Pt A&Ox1 to self. Aspiration precautions and NPO maintained pending formal swallow eval as per MD order. See shift assessments and EMAR for full details. Handoff report given to oncoming RN 06:45.
[2023-09-11 07:09] VITALS: PULSE 90; RESP 19; TEMP 36.2; O2SAT 96
--- NOTE | 2023-09-11 10:25 | P.PNIM_ITS ---
Subjective Subjective Date of Service: 09/11/23 Interval History: Calm this morning, no shortness of breath, asking to drink water, O2 96 on 2 liters Physical Exam 2 Vital Signs: Vital Signs: Last Vital Signs Temp 97.2 F 09/11/23 07:09 Pulse 90 09/11/23 07:09 Resp 19 09/11/23 07:09 BP 132/66 09/11/23 04:00 Pulse Ox 96 09/11/23 07:09 O2 Del Method Nasal Cannula 09/11/23 07:09 O2 Flow Rate 4 09/11/23 04:00 Oxygen Flow Rate 4 09/06/23 19:33 BMI result Body Mass Index 22.9 Const: Other: General: AO X 3, no acute distress Resp: CTA bilateral CVS: S1,S2,RRR GI: +BS, NT, no distention Skin: No rash Neuro: motor grossly intact Psych: appropriate affect Objective Data Active Medications Acetaminophen (Acetaminophen 325 Mg Tablet) 650 mg PO Q6H PRN PRN Reason: Pain, Mild (Pain Scale 1-3) Albuterol/Ipratropium (Albuterol/Iprat 2.5/0.5mg 3 Ml Ampul.Neb) 3 ml INHALE RQ4H WHILE AWAKE PRN PRN Reason: Shortness Of Breath/Wheezing Benzonatate (Benzonatate 100 Mg Capsule) 100 mg PO TID PRN PRN Reason: Cough Buspirone HCl (Buspirone Hcl 5 Mg Tablet) 7.5 mg PO BID [facility] Last Admin: 09/11/23 09:26 Dose: Not Given Documented By: ALEXA Non-Admin Reason: NPO Cyanocobalamin (Cyanocobalamin (Vitamin B-12) 500 Mcg Tablet) 500 mcg PO BID [facility] Last Admin: 09/11/23 09:27 Dose: Not Given Documented By: ALEXA Non-Admin Reason: NPO Folic Acid (Folic Acid 1 Mg Tablet) 1 mg PO DAILY [facility] Last Admin: 09/11/23 09:27 Dose: Not Given Documented By: ALEXA Non-Admin Reason: NPO Gabapentin (Gabapentin 100 Mg Capsule) 100 mg PO BID [facility] Last Admin: 09/11/23 09:27 Dose: Not Given Documented By: ALEXA Non-Admin Reason: NPO Guaifenesin (Guaifenesin La 600 Mg Tab.Er.12h) 600 mg PO BID [facility] Last Admin: 09/11/23 09:27 Dose: Not Given Documented By: ALEXA Non-Admin Reason: NPO Heparin Sodium (Porcine) (Heparin Sodium,Porcine 5,000 Unit/Ml Vial) 5,000 unit SUBCUT Q8H [facility] Last Admin: 09/11/23 06:09 Dose: 5,000 unit Documented By: KARLA Azithromycin 500 mg/ Sodium (Chloride) 250 mls @ 125 mls/hr IV 2000 [facility] Last Infusion: 09/11/23 00:00 Dose: Infused Documented By: KARLA Ampicillin Sodium/Sulbactam (Sodium 3 gm/ Sodium Chloride) 100 mls @ 200 mls/hr IV Q6H [facility] Last Infusion: 09/11/23 06:40 Dose: Infused Documented By: KARLA Sodium Chloride (Ns) 1,000 mls @ 75 mls/hr IVCONT .[id number] [facility] Last Admin: 09/11/23 00:53 Dose: 75 mls/hr Documented By: KARLA Levalbuterol HCl (Levalbuterol Hcl 1.25 Mg/3 Ml Vial.Neb) 1.25 mg INHALE Q4H PRN PRN Reason: Shortness of Breath/Wheezing Last Admin: 09/07/23 12:52 Dose: 1.25 mg Documented By: JUVE Megestrol Acetate (Megestrol Acetate 400 Mg/10 Ml Oral.Susp) 200 mg PO BID [facility] Last Admin: 09/11/23 09:27 Dose: Not Given Documented By: ALEXA Non-Admin Reason: NPO Methylprednisolone Sodium Succinate (Methylprednisolone Sod Succ 40 Mg/Ml Vial) 40 mg IVPUSH Q12H [facility] Last Admin: 09/11/23 00:55 Dose: 40 mg Documented By: KARLA Mirtazapine (Mirtazapine 7.5 Mg Tablet) 7.5 mg PO BEDTIME [facility] Last Admin: 09/10/23 21:59 Dose: 7.5 mg Documented By: AAN Morphine Sulfate (Morphine Sulfate 2 Mg/Ml Cartridge) 2 mg IVPUSH Q6H PRN; Protocol PRN Reason: work of breathing Last Admin: 09/08/23 07:54 Dose: 2 mg Olanzapine (Olanzapine 7.5 Mg Tablet) 15 mg PO BEDTIME [facility] Last Admin: 09/10/23 21:59 Dose: 15 mg Documented By: ANA Polyethylene Glycol (Polyethylene Glycol 3350 17 Gm Powd.Pack) 17 gm PO BID PRN PRN Reason: Constipation Psyllium Hydrophilic Mucilloid (Psyllium Seed 3.7 Gm Packet) 3.7 gm PO DAILY [facility] Last Admin: 09/11/23 09:27 Dose: Not Given Documented By: ALEXA Non-Admin Reason: NPO Sodium Chloride (0.9 % Sodium Chloride Flush 3 Ml Syringe) 3 ml IVFLUSH QSHIFT [facility] Last Admin: 09/11/23 09:26 Dose: Not Given Documented By: ALEXA Non-Admin Reason: IV Running Tamsulosin HCl (Tamsulosin Hcl 0.4 Mg Capsule) 0.8 mg PO DAILY [facility] Last Admin: 09/11/23 09:27 Dose: Not Given Documented By: ALEXA Non-Admin Reason: NPO Thiamine HCl (Thiamine Hcl 100 Mg Tablet) 100 mg PO DAILY [facility] Last Admin: 09/11/23 09:28 Dose: Not Given Documented By: ALEXA Non-Ganga Reason: NPO Labs 09/10/23 07:38 09/10/23 07:38 Assessment and Plan (1) Schizophrenia: Status: Acute (2) Pneumonia: Status: Acute (3) COPD (chronic obstructive pulmonary disease): Status: Acute Plan This is a 67 years old male with history of chronic respiratory failure/COPD on 4 L of supplemental oxygen, it, tobacco dependence fountain on Section 12 as the patient has reportedly been doing poorly over the past several weeks and has been having increasing paranoia, decreased p.o. intake and weight loss. Acute on chronic respiratory failure with hypoxia/COPD ex, improved -bronchodilators PRN -Oral steroid -O2 gaol of 88 to 92 Community-acquired pneumonia with concern for aspiration PNA as well was on Azithro + ceftriaxone, Unassyn added 09/09. -Change to Augmentin for total 7 days Schizophrenia, decompensated , under section 12 and refusing care at time -Psych recommend Olanzpine 15mg, prn haldol for agiation, helath care proxy invoked -Care team consult for possible inpatient Psych dysphagia--ADOBE ARCHITECT recommend NDD2+[place] thick liquid hypokalemia--resolved, last K 4.7, nl mag Leukocytosis due to steroid Acute lactic acidosis--not due to sepsis, lkely from hypoxia Anemia, chronic. Continue to monitor hemoglobin. Mild protein calory malnutrition, poor intake, and aspiration on water speech to reassess tomorrow VTE prophylaxis: Heparin subcu Code status: Presumed full code. dispo: patient brought in on section 12. seen by Psych - does not have capacity to make medical decisions at this time need for inpt: need for inpatient Psych under sec 12 Quality Stroke Does the patient have a stroke diagnosis?: No VTE Prior VTE?: No VTE Risk Level:: Medical - moderate - high VTE Device Contraindication: Treatment Not Indicated VTE Drug Contraindication: N/A - Med Ordered
[2023-09-11] MEDS: Megestrol Acetate 400 MG/10 ML ORAL.SUSP 200 MG PO (10:48)
[2023-09-11] MEDS: Gabapentin 100 MG CAPSULE PO (10:50)
[2023-09-11] MEDS: Cyanocobalamin (Vitamin B-12) 500 MCG TABLET PO (10:50)
[2023-09-11] MEDS: predniSONE 20 MG TABLET PO (10:50)
[2023-09-11] MEDS: Folic Acid 1 MG TABLET PO (10:50)
[2023-09-11] MEDS: Amoxicillin/Potassium Clav 875 MG TABLET PO ×2 (10:50→23:03)
[2023-09-11] MEDS: busPIRone HCl 5 MG TABLET 7.5 MG PO (10:50)
[2023-09-11] MEDS: Thiamine HCL 100 MG TABLET PO (10:50)
[2023-09-11] MEDS: Tamsulosin HCL 0.4 MG CAPSULE 0.8 MG PO (10:52)
[2023-09-11] MEDS: guaiFENesin LA 600 MG TAB.ER.12H PO ×2 (10:52→23:02)
--- NOTE | 2023-09-11 10:57 | MHC.SL.SWA ---
Speech Pathologist Impression: Risk of aspiration, oropharyngeal dysphagia Risk of Aspiration Due to: History of Pneumonia Poor PO Intake Reduced Cognition Weak Voice Dysphasia Diet Status: Liquid Consistency and Strategies for Safe Swallow: Liquid Intake Recommendation: Vici Thick Liquid Intake Strategies: Small Sips No Straws Solid Food Consistency: Dietary Recommendations: Grnd/Mech Altered (NDD2) Additional Modifications to Solid Foods: Recommend UPGRADE from NPO, start on GROUND/MECH ALTERED (NDD2) solids and NECTAR THICK liquids, pills WHOLE or CRUSHED in PUREE. Given pt's impulsivity while feeding himself and tendency to pack his mouth with food, recommend continue with supervised meals and aspiration precautions. Oral Medication Intake: Whole with Puree Please contact the pharmacy regarding appropriate crushable or liquid drug formulations that are available whenever modified delivery is recommended. Compensatory Strategies and Precautions to be Taken for Safe Swallow: Sitting Upright (90 deg) Double Swallow No Straw Small Bites and Sips Alternate Liquids/Solids Rate of Ingestion Change Avoid Specific Foods Supervision While Eating and Drinking for Safe Swallow: Total Supervision (1:1) Foods to Avoid: Tough, dificult to chew solids, crunchy/crumbly textures. Swallowing Recommended Treatments: Compens. Strategy Educat. Recommendation for Speech: Inpatient Speech Therapy Comment: PATROL CONDUCTOR was re-consulted after pt was observed to be coughing and choking on thin liquids. Recommend downgrade to nectar thick. PATROL CONDUCTOR will continue to follow. Frequency/Duration: PRN Date Range for Service Req: Timeline to reassess: Shingle Shearing Machine Operator Clinican/Clinical Fellow: No Supervisory Statement: I have reviewed and agree with the student/clinical fellow's documentation: N/A Speech Language Pathologist: Vania Pickett M.A., [facility]-PATROL CONDUCTOR
[2023-09-11] MEDS: Morphine Sulfate 2 MG/ML CARTRIDGE IVPUSH ×2 (11:09→18:31)
--- NOTE | 2023-09-11 13:56 | MHC.CM.PN ---
EMR reviewed and per MD rounds, pt is not medically cleared for D/C due to pending inpatient psych placement. CM will continue to follow.
--- NOTE | 2023-09-11 16:15 | PM.PSYCN ---
History of Present Illness Date of Service: 09/11/2023 Chief Complaint: Community Acquired Pneumonia Reason for Consult: psychosis/delusions Requesting physician: Simone Rucker Discussed with referring provider: Yes Sources of Information: patient interviewed, chart reviewed and crisis/core team assessment reviewed HPI Narrative: Interim Hx: Pt seen in his room. He was resting comfortable. He declined to speak with this racebook writer, turned to the side and kept waving hands asking to leave. Per nursing, pt has been eating more. He does communicate with few single words. He does not show capacity to make medical decisions. At this point, concern mostly in terms of pt's ability to care for himself. HCP has been invoked. He may not be safe to live on his own or to care forhimself. He appears significantly malnourished, unable to verbalize understanding of need for both medical and psychiatric care. He has been for the most part taking medications, at times declining to take some medications without apparent reason. [facility] Medical History (Updated 09/07/23 @ 14:05 by APRYL Moore) COPD (chronic obstructive pulmonary disease) Acidosis, lactic Leukocytosis Smoker in home Emphysema lung COPD (chronic obstructive pulmonary disease) Schizophrenia Right inguinal hernia Pneumonia Umbilical hernia COPD (chronic obstructive pulmonary disease) Pneumothorax COPD (chronic obstructive pulmonary disease) Surgical History No pertinent past surgical history Diagnostics Vital Signs (24Hr): Vital Signs - 24 hr 09/10/23 19:10 09/10/23 19:43 09/10/23 20:00 Temperature 97.9 F Pulse Rate 85 88 Respiratory Rate 22 H 21 H Blood Pressure 131/84 Pulse Oximetry 99 Oxygen Delivery Method Nasal Cannula Nasal Cannula Oxygen Flow Rate 4 09/10/23 23:41 09/10/23 23:44 09/11/23 04:00 Temperature 98.4 F 98.9 F Pulse Rate 83 77 Respiratory Rate 18 18 18 Blood Pressure 123/74 132/66 Pulse Oximetry 98 100 Oxygen Delivery Method Nasal Cannula Nasal Cannula Oxygen Flow Rate 4 4 09/11/23 07:09 Temperature 97.2 F Pulse Rate 90 Respiratory Rate 19 Blood Pressure Pulse Oximetry 96 Oxygen Delivery Method Nasal Cannula Oxygen Flow Rate BMI result Body Mass Index 22.9 Labs 09/10/23 07:38 09/10/23 07:38 Labs: Laboratory Results - last 48 hr 09/10/23 07:38 WBC 17.4 H RBC 4.02 L Hgb 10.7 L Hct 34.3 L MCV 85.3 MCH 26.6 L MCHC 31.2 RDW 15.2 Plt Count 524 H MPV 9.4 Immature Gran % (Auto) 1.3 H Neut % (Auto) 91.4 H Lymph % (Auto) 5.0 L [place] % (Auto) 2.0 Eos % (Auto) 0.1 Baso % (Auto) 0.2 Lymph # (Auto) 0.9 L [place] # (Auto) 0.4 Eos # (Auto) 0.0 Baso # (Auto) 0.0 Abs Immat Gran (auto) 0.23 H Absolute Neuts (auto) 15.9 H Absolute Nucleated RBC 0.000 Nucleated RBC % (auto) 0.0 Smear Tech's Comments VERIFIED Sodium 137 Potassium 4.6 Chloride 106 Carbon Dioxide 24 Anion Gap 12 BUN 6 L Creatinine 0.53 Estim Creat Clear Calc 130.8 Estimated GFR > 60 Random Glucose 118 H Calcium 8.5 Imaging Radiology Impressions: ITS Impressions Chest X-Ray 09/06/23 20:00 IMPRESSION: Again, there is sequela of emphysema, with persistent left upper lobe thick-walled cavity. There is a superimposed mild to moderate left base infiltrate now appreciated. Recommend continued radiographic follow-up to clearance. Chest CT 09/06/23 22:11 IMPRESSION: Emphysema with large bulla/cavity with septations in the left upper lobe. There is adjacent parenchymal air bronchogram in left midlung likely consolidation/infiltrate. In the left lower lobe patchy airspace infiltrate. There is a new patchy density seen in the right upper lobe lateral segment compared to CT chest 08/15/2023. Mild left apical and basilar pleural thickening. Fleischner guidelines were followed. Mental Status Exam Mental Status Exam Narrative: In bed, making hand gestures telling this racebook writer to leave, turned to side not engaging in any type of conversation. Medications Medications Current Medications Acetaminophen (Acetaminophen 325 Mg Tablet) 650 mg PO Q6H PRN PRN Reason: Pain, Mild (Pain Scale 1-3) Albuterol/Ipratropium (Albuterol/Iprat 2.5/0.5mg 3 Ml Ampul.Neb) 3 ml INHALE RQ4H WHILE AWAKE PRN PRN Reason: Shortness Of Breath/Wheezing Amoxicillin/Clavulanate Potassium (Amoxicillin/Potassium Clav 875 Mg Tablet) 875 mg PO Q12H [facility] Last Admin: 09/11/23 10:50 Dose: 875 mg Benzonatate (Benzonatate 100 Mg Capsule) 100 mg PO TID PRN PRN Reason: Cough Buspirone HCl (Buspirone Hcl 5 Mg Tablet) 7.5 mg PO BID [facility] Last Admin: 09/11/23 10:50 Dose: 7.5 mg Cyanocobalamin (Cyanocobalamin (Vitamin B-12) 500 Mcg Tablet) 500 mcg PO BID [facility] Last Admin: 09/11/23 10:50 Dose: 500 mcg Folic Acid (Folic Acid 1 Mg Tablet) 1 mg PO DAILY [facility] Last Admin: 09/11/23 10:50 Dose: 1 mg Gabapentin (Gabapentin 100 Mg Capsule) 100 mg PO BID [facility] Last Admin: 09/11/23 10:50 Dose: 100 mg Guaifenesin (Guaifenesin La 600 Mg Tab.Er.12h) 600 mg PO BID [facility] Last Admin: 09/11/23 10:52 Dose: 600 mg Heparin Sodium (Porcine) (Heparin Sodium,Porcine 5,000 Unit/Ml Vial) 5,000 unit SUBCUT Q8H [facility] Last Admin: 09/11/23 11:44 Dose: Not Given Sodium Chloride (Ns) 1,000 mls @ 75 mls/hr IVCONT .[id number] [facility] Last Admin: 09/11/23 11:01 Dose: 75 mls/hr Levalbuterol HCl (Levalbuterol Hcl 1.25 Mg/3 Ml Vial.Neb) 1.25 mg INHALE Q4H PRN PRN Reason: Shortness of Breath/Wheezing Last Admin: 09/07/23 12:52 Dose: 1.25 mg Megestrol Acetate (Megestrol Acetate 400 Mg/10 Ml Oral.Susp) 200 mg PO BID [facility] Last Admin: 09/11/23 10:48 Dose: 200 mg Mirtazapine (Mirtazapine 7.5 Mg Tablet) 7.5 mg PO BEDTIME [facility] Last Admin: 09/10/23 21:59 Dose: 7.5 mg Morphine Sulfate (Morphine Sulfate 2 Mg/Ml Cartridge) 2 mg IVPUSH Q6H PRN; Protocol PRN Reason: work of breathing Last Admin: 09/11/23 11:09 Dose: 2 mg Olanzapine (Olanzapine 7.5 Mg Tablet) 15 mg PO BEDTIME [facility] Last Admin: 09/10/23 21:59 Dose: 15 mg Polyethylene Glycol (Polyethylene Glycol 3350 17 Gm Powd.Pack) 17 gm PO BID PRN PRN Reason: Constipation Prednisone (Prednisone 20 Mg Tablet) 20 mg PO DAILY [facility] Last Admin: 09/11/23 10:50 Dose: 20 mg Psyllium Hydrophilic Mucilloid (Psyllium Seed 3.7 Gm Packet) 3.7 gm PO DAILY [facility] Last Admin: 09/11/23 09:27 Dose: Not Given Sodium Chloride (0.9 % Sodium Chloride Flush 3 Ml Syringe) 3 ml IVFLUSH QSHIFT [facility] Last Admin: 09/11/23 09:26 Dose: Not Given Tamsulosin HCl (Tamsulosin Hcl 0.4 Mg Capsule) 0.8 mg PO DAILY [facility] Last Admin: 09/11/23 10:52 Dose: 0.8 mg Thiamine HCl (Thiamine Hcl 100 Mg Tablet) 100 mg PO DAILY [facility] Last Admin: 09/11/23 10:50 Dose: 100 mg Allergies Allergies Allergy/AdvReac Type Severity Reaction Status Date / Time tree and shrub pollen Allergy Mild Rash Verified 09/06/23 19:33 Assessment & Plan Assessment & Plan (1) Schizophrenia: Status: Acute Code(s): F20.9 - Schizophrenia, unspecified Plan Mr. Esparza is a 67 year-old male with hx of schizophrenia. He was [place] [facility] [place] due to increase paranoia an not eating. He was found to have acute on chronic respiratory failure and admitted medically. He is more stable but continues to show no capacity to make decisions. He is eating more and appears less paranoid but overall he does not appear to be able to care for himself. Concern is more computer terminal operator and his ability to care for himself than acute psych admission that may significantly improve his functional level. PLAN 1. May benefit more from placement as he is not able to care for himself. HCP has been invoked. May need placement as well. 2. Continue olanzapine 15mg po qhs. Left VM to his OP psychiatrist Dr. Bone with call back number. Care team spoke with sister who is his HCP. Sister also report she is concern in terms of pt's ability to care for himself. Total time managing care of this patient today ____ minutes.
--- NOTE | 2023-09-11 19:15 | PM.EVENT ---
Documented by User: Ashanti Esteban APRN 09/11/23 19:16 Event Note Date of Service: 09/11/23 Event Note: Consult request received. Consulted with Dr. Rucker who reports he would like CARE Team to meet with pt for disposition. Time Spent With Patient Time: Total time managing care of this patient today ____ minutes. Documented by User: Juan Diego Hayward MD 09/11/23 22:27 Event Note Date of Service: 09/11/23
[2023-09-11 20:00] VITALS: BP 129/54; PULSE 102; RESP 18; TEMP 36.8; O2SAT 98
[2023-09-11] MEDS: OLANZapine 7.5 MG TABLET 15 MG PO (23:00)
[2023-09-11] MEDS: Mirtazapine 7.5 MG TABLET PO (23:02)
[2023-09-11 23:50] VITALS: BP 146/69; PULSE 96; RESP 20; TEMP 36.5; O2SAT 100
[2023-09-12 04:00] VITALS: BP 137/72; PULSE 93; RESP 20; TEMP 37; O2SAT 97
[2023-09-12 07:15] VITALS: BP 168/76; PULSE 94; RESP 20; TEMP 36.2; O2SAT 99
[2023-09-12] MEDS: Morphine Sulfate 2 MG/ML CARTRIDGE IVPUSH (08:44)
[2023-09-12] MEDS: Psyllium seed 3.7 GM PACKET PO (08:45)
[2023-09-12] MEDS: guaiFENesin LA 600 MG TAB.ER.12H PO ×2 (08:45→22:29)
[2023-09-12] MEDS: Cyanocobalamin (Vitamin B-12) 500 MCG TABLET PO ×2 (08:45→22:33)
[2023-09-12] MEDS: Folic Acid 1 MG TABLET PO (08:45)
[2023-09-12] MEDS: Tamsulosin HCL 0.4 MG CAPSULE 0.8 MG PO (08:45)
[2023-09-12] MEDS: Gabapentin 100 MG CAPSULE PO ×2 (08:45→22:30)
[2023-09-12] MEDS: Megestrol Acetate 400 MG/10 ML ORAL.SUSP 200 MG PO (08:45)
[2023-09-12] MEDS: predniSONE 20 MG TABLET PO (08:45)
[2023-09-12] MEDS: Thiamine HCL 100 MG TABLET PO (08:45)
[2023-09-12] MEDS: Benzonatate 100 MG CAPSULE PO (08:46)
[2023-09-12] MEDS: 0.9 % Sodium Chloride Flush 3 ML SYRINGE IVFLUSH ×3 (08:46→15:56)
[2023-09-12] MEDS: Amoxicillin/Potassium Clav 875 MG TABLET PO ×2 (08:47→22:29)
--- NOTE | 2023-09-12 11:17 | MHC.SPEECHCO ---
Pt waived off [facility] when approached for follow-up. Per RN, he is tolerating his current diet. [facility] will follow-up x1.
--- NOTE | 2023-09-12 12:23 | HO.PM.IMPN ---
Subjective Subjective Date of Service: 09/12/23 Interval History: Calm this morning, no shortness of breath, asking to drink water, O2 96 on 2 liters Physical Exam Vital Signs: Vital Signs: Last Vital Signs Temp 97.1 F 09/12/23 07:15 Pulse 94 09/12/23 07:15 Resp 20 09/12/23 07:15 BP 168/76 H 09/12/23 07:15 Pulse Ox 99 09/12/23 07:15 O2 Del Method Nasal Cannula 09/12/23 07:15 O2 Flow Rate 4 09/11/23 20:00 Oxygen Flow Rate 4 09/06/23 19:33 BMI result Body Mass Index 22.9 Const: Other: General: AO X 1, no acute distress Resp: CTA bilateral CVS: S1,S2,RRR GI: +BS, NT, no distention Skin: No rash Neuro: motor grossly intact Psych: appropriate affect Objective Data Active Medications Acetaminophen (Acetaminophen 325 Mg Tablet) 650 mg PO Q6H PRN PRN Reason: Pain, Mild (Pain Scale 1-3) Albuterol/Ipratropium (Albuterol/Iprat 2.5/0.5mg 3 Ml Ampul.Neb) 3 ml INHALE RQ4H WHILE AWAKE PRN PRN Reason: Shortness Of Breath/Wheezing Amoxicillin/Clavulanate Potassium (Amoxicillin/Potassium Clav 875 Mg Tablet) 875 mg PO Q12H [facility] Last Admin: 09/12/23 08:47 Dose: 875 mg Documented By: ALEXA Benzonatate (Benzonatate 100 Mg Capsule) 100 mg PO TID PRN PRN Reason: Cough Last Admin: 09/12/23 08:46 Dose: 100 mg Documented By: ALEXA Cyanocobalamin (Cyanocobalamin (Vitamin B-12) 500 Mcg Tablet) 500 mcg PO BID [facility] Last Admin: 09/12/23 08:45 Dose: 500 mcg Documented By: ALEXA Folic Acid (Folic Acid 1 Mg Tablet) 1 mg PO DAILY [facility] Last Admin: 09/12/23 08:45 Dose: 1 mg Documented By: ALEXA Gabapentin (Gabapentin 100 Mg Capsule) 100 mg PO BID [facility] Last Admin: 09/12/23 08:45 Dose: 100 mg Documented By: ALEXA Guaifenesin (Guaifenesin La 600 Mg Tab.Er.12h) 600 mg PO BID [facility] Last Admin: 09/12/23 08:45 Dose: 600 mg Documented By: ALEXA Heparin Sodium (Porcine) (Heparin Sodium,Porcine 5,000 Unit/Ml Vial) 5,000 unit SUBCUT Q8H [facility] Last Admin: 09/12/23 12:21 Dose: Not Given Documented By: ALEXA Non-Admin Reason: Patient Refused Levalbuterol HCl (Levalbuterol Hcl 1.25 Mg/3 Ml Vial.Neb) 1.25 mg INHALE Q4H PRN PRN Reason: Shortness of Breath/Wheezing Last Admin: 09/07/23 12:52 Dose: 1.25 mg Documented By: JUVE Megestrol Acetate (Megestrol Acetate 400 Mg/10 Ml Oral.Susp) 200 mg PO BID [facility] Last Admin: 09/12/23 08:45 Dose: 200 mg Documented By: ALEXA Mirtazapine (Mirtazapine 7.5 Mg Tablet) 7.5 mg PO BEDTIME [facility] Last Admin: 09/11/23 23:02 Dose: 7.5 mg Documented By: WINSTON Morphine Sulfate (Morphine Sulfate 2 Mg/Ml Cartridge) 2 mg IVPUSH Q6H PRN; Protocol PRN Reason: work of breathing Last Admin: 09/12/23 08:44 Dose: 2 mg Documented By: ALEXA Olanzapine (Olanzapine 7.5 Mg Tablet) 15 mg PO BEDTIME [facility] Last Admin: 09/11/23 23:00 Dose: 15 mg Documented By: WINSTON Polyethylene Glycol (Polyethylene Glycol 3350 17 Gm Powd.Pack) 17 gm PO BID PRN PRN Reason: Constipation Prednisone (Prednisone 20 Mg Tablet) 20 mg PO DAILY [facility] Last Admin: 09/12/23 08:45 Dose: 20 mg Documented By: ALEXA Psyllium Hydrophilic Mucilloid (Psyllium Seed 3.7 Gm Packet) 3.7 gm PO DAILY [facility] Last Admin: 09/12/23 08:45 Dose: 3.7 gm Documented By: ALEXA Sodium Chloride (0.9 % Sodium Chloride Flush 3 Ml Syringe) 3 ml IVFLUSH QSHIFT [facility] Last Admin: 09/12/23 08:46 Dose: 3 ml Documented By: ALEXA Tamsulosin HCl (Tamsulosin Hcl 0.4 Mg Capsule) 0.8 mg PO DAILY [facility] Last Admin: 09/12/23 08:45 Dose: 0.8 mg Documented By: ALEXA Thiamine HCl (Thiamine Hcl 100 Mg Tablet) 100 mg PO DAILY [facility] Last Admin: 09/12/23 08:45 Dose: 100 mg Documented By: ALEXA Labs 09/10/23 07:38 09/10/23 07:38 Microbiology Microbiology Results: Microbiology 09/06/23 21:53 Blood Culture - Final Blood - Venous No growth after 5 days. 09/06/23 21:53 Blood Culture - Final Blood - Venous No growth after 5 days. Assessment and Plan (1) Schizophrenia: Status: Acute (2) Pneumonia: Status: Acute (3) COPD (chronic obstructive pulmonary disease): Status: Acute Plan This is a 67 years old male with history of chronic respiratory failure/COPD on 4 L of supplemental oxygen, it, tobacco dependence fountain on Section 12 as the patient has reportedly been doing poorly over the past several weeks and has been having increasing paranoia, decreased p.o. intake and weight loss. Acute on chronic respiratory failure with hypoxia/COPD ex, improved -bronchodilators PRN -Oral steroid -O2 gaol of 88 to 92 Community-acquired pneumonia with concern for aspiration PNA as well was on Azithro + ceftriaxone, Unassyn added 09/09. -Changed to Augmentin on 09/11 for total 7 days Schizophrenia, admitted under section 12 -continue Olanzapine, remron, no need for inpatient Psych per Psych dysphagia--RIP/MOULD OPERATOR recommend NDD2+[place] thick liquid hypokalemia--resolved, last K 4.7, nl mag Leukocytosis due to steroid Acute lactic acidosis--not due to sepsis, lkely from hypoxia Anemia, chronic. Continue to monitor hemoglobin. Mild protein calory malnutrition, poor intake, and aspiration on water speech to reassess tomorrow VTE prophylaxis: Heparin subcu Code status: Presumed full code. dispo: Patient deemed unfit to leave alone, HCP invoked and will need [facility] placement, CM aware need for inpt: need for placement as stated above Quality Stroke Does the patient have a stroke diagnosis?: No VTE Prior VTE?: No VTE Risk Level:: Medical - moderate - high VTE Device Contraindication: Treatment Not Indicated VTE Drug Contraindication: N/A - Med Ordered
--- NOTE | 2023-09-12 13:31 | MHC.CM.PN ---
Addendum entered by Farida Marcum 09/12/23 15:18: Pt received a return call from pts sister/HCP Ana Hackett, she would like have PT see her brother and have him go to [facility]. updated and will order a PT eval. Original Note: EMR reviewed and per MD rounds, pt is medically cleared for D/C. Per Care Team pt does not need inpatient psych, and has been referred to CM for placement. This CM called pts HCP/sister Ana Hackett to discuss, voicemail left @ 10:24am, awaiting return call. This CM placed LTC referrals for facilities known to accept psychiatric pts, no bed offers at this time, will continue to follow.
[2023-09-12 15:25] VITALS: BP 129/60; PULSE 68; RESP 18; TEMP 36.3; O2SAT 100
[2023-09-12 18:57] VITALS: BP 161/84; PULSE 113; RESP 20; TEMP 36.7; O2SAT 98
[2023-09-12] MEDS: OLANZapine 7.5 MG TABLET 15 MG PO (22:29)
[2023-09-12] MEDS: Mirtazapine 7.5 MG TABLET PO (22:30)
[2023-09-12 23:51] VITALS: BP 148/73; PULSE 105; RESP 20; TEMP 36.1; O2SAT 98
[2023-09-13 07:16] VITALS: BP 153/72; PULSE 85; RESP 20; TEMP 37.2; O2SAT 100
--- NOTE | 2023-09-13 09:04 | MHC.CM.PN ---
NO BED OFFERS OF THIS NOTE. ADDITIONAL REFERRAL TO [facility] PLACED IN HOPES OF A BED OFFER. NO P.T. NOTE IN AT THIS TIME
[2023-09-13] MEDS: Cyanocobalamin (Vitamin B-12) 500 MCG TABLET PO (09:27)
[2023-09-13] MEDS: Amoxicillin/Potassium Clav 875 MG TABLET PO (09:27)
[2023-09-13] MEDS: Tamsulosin HCL 0.4 MG CAPSULE 0.8 MG PO (09:27)
[2023-09-13] MEDS: Thiamine HCL 100 MG TABLET PO (09:27)
[2023-09-13] MEDS: guaiFENesin LA 600 MG TAB.ER.12H PO (09:27)
[2023-09-13] MEDS: Megestrol Acetate 400 MG/10 ML ORAL.SUSP 200 MG PO (09:28)
[2023-09-13] MEDS: Folic Acid 1 MG TABLET PO (09:28)
[2023-09-13] MEDS: predniSONE 20 MG TABLET PO (09:28)
[2023-09-13] MEDS: Psyllium seed 3.7 GM PACKET PO (09:28)
[2023-09-13] MEDS: Gabapentin 100 MG CAPSULE PO (09:28)
[2023-09-13] MEDS: 0.9 % Sodium Chloride Flush 3 ML SYRINGE IVFLUSH ×3 (09:29→17:10)
--- NOTE | 2023-09-13 09:38 | P.PNIM_ITS ---
Subjective Subjective Date of Service: 09/13/23 Interval History: He is more cooperative today, no resp failure Physical Exam 2 Vital Signs: Vital Signs: Last Vital Signs Temp 98.9 F 09/13/23 07:16 Pulse 85 09/13/23 07:16 Resp 20 09/13/23 07:16 BP 153/72 H 09/13/23 07:16 Pulse Ox 100 09/13/23 07:16 O2 Del Method Nasal Cannula 09/13/23 07:16 O2 Flow Rate 2 09/13/23 07:16 Oxygen Flow Rate 4 09/06/23 19:33 BMI result Body Mass Index 22.9 Const: Other: General: AO X 1, no acute distress Resp: CTA bilateral CVS: S1,S2,RRR GI: +BS, NT, no distention Skin: No rash Neuro: motor grossly intact Psych: appropriate affect Objective Data Active Medications Acetaminophen (Acetaminophen 325 Mg Tablet) 650 mg PO Q6H PRN PRN Reason: Pain, Mild (Pain Scale 1-3) Albuterol/Ipratropium (Albuterol/Iprat 2.5/0.5mg 3 Ml Ampul.Neb) 3 ml INHALE RQ4H WHILE AWAKE PRN PRN Reason: Shortness Of Breath/Wheezing Amoxicillin/Clavulanate Potassium (Amoxicillin/Potassium Clav 875 Mg Tablet) 875 mg PO Q12H [facility] Last Admin: 09/12/23 22:29 Dose: 875 mg Documented By: WINSTON Benzonatate (Benzonatate 100 Mg Capsule) 100 mg PO TID PRN PRN Reason: Cough Last Admin: 09/12/23 08:46 Dose: 100 mg Documented By: ALEXA Cyanocobalamin (Cyanocobalamin (Vitamin B-12) 500 Mcg Tablet) 500 mcg PO BID [facility] Last Admin: 09/12/23 22:33 Dose: 500 mcg Documented By: WINSTON Folic Acid (Folic Acid 1 Mg Tablet) 1 mg PO DAILY [facility] Last Admin: 09/12/23 08:45 Dose: 1 mg Documented By: ALEXA Gabapentin (Gabapentin 100 Mg Capsule) 100 mg PO BID [facility] Last Admin: 09/12/23 22:30 Dose: 100 mg Documented By: WINSTON Guaifenesin (Guaifenesin La 600 Mg Tab.Er.12h) 600 mg PO BID [facility] Last Admin: 09/12/23 22:29 Dose: 600 mg Documented By: WINSTON Heparin Sodium (Porcine) (Heparin Sodium,Porcine 5,000 Unit/Ml Vial) 5,000 unit SUBCUT Q8H [facility] Last Admin: 09/13/23 06:14 Dose: Not Given Documented By: WINSTON Non-Admin Reason: Patient Refused Levalbuterol HCl (Levalbuterol Hcl 1.25 Mg/3 Ml Vial.Neb) 1.25 mg INHALE Q4H PRN PRN Reason: Shortness of Breath/Wheezing Last Admin: 09/07/23 12:52 Dose: 1.25 mg Documented By: JUVE Megestrol Acetate (Megestrol Acetate 400 Mg/10 Ml Oral.Susp) 200 mg PO BID [facility] Last Admin: 09/12/23 22:32 Dose: Not Given Documented By: WINSTON Non-Admin Reason: Patient Refused Mirtazapine (Mirtazapine 7.5 Mg Tablet) 7.5 mg PO BEDTIME [facility] Last Admin: 09/12/23 22:30 Dose: 7.5 mg Documented By: WINSTON Olanzapine (Olanzapine 7.5 Mg Tablet) 15 mg PO BEDTIME [facility] Last Admin: 09/12/23 22:29 Dose: 15 mg Documented By: WINSTON Polyethylene Glycol (Polyethylene Glycol 3350 17 Gm Powd.Pack) 17 gm PO BID PRN PRN Reason: Constipation Prednisone (Prednisone 20 Mg Tablet) 20 mg PO DAILY [facility] Last Admin: 09/12/23 08:45 Dose: 20 mg Documented By: ALEXA Psyllium Hydrophilic Mucilloid (Psyllium Seed 3.7 Gm Packet) 3.7 gm PO DAILY [facility] Last Admin: 09/12/23 08:45 Dose: 3.7 gm Documented By: ALEXA Sodium Chloride (0.9 % Sodium Chloride Flush 3 Ml Syringe) [facility] Admin: 09/13/23 00:00 Dose: 3 ml Documented By: WINSTON Tamsulosin HCl (Tamsulosin Hcl 0.4 Mg Capsule) 0.8 mg PO DAILY [facility] Last Admin: 09/12/23 08:45 Dose: 0.8 mg Documented By: ALEXA Thiamine HCl (Thiamine Hcl 100 Mg Tablet) 100 mg PO DAILY [facility] Last Admin: 09/12/23 08:45 Dose: 100 mg Documented By: ALEXA Labs 09/10/23 07:38 09/10/23 07:38 Assessment and Plan (1) Schizophrenia: Status: Acute (2) Pneumonia: Status: Acute (3) COPD (chronic obstructive pulmonary disease): Status: Acute Plan This is a 67 years old male with history of chronic respiratory failure/COPD on 4 L of supplemental oxygen, it, tobacco dependence fountain on Section 12 as the patient has reportedly been doing poorly over the past several weeks and has been having increasing paranoia, decreased p.o. intake and weight loss. Acute on chronic respiratory failure with hypoxia/COPD ex, resolved. -bronchodilators PRN -Oral steroid, wean off -O2 gaol of 88 to 92 Community-acquired pneumonia with concern for aspiration PNA as well was on Azithro + ceftriaxone, Unassyn added 09/09. -Changed to Augmentin on 09/11 for total 7 days Schizophrenia, admitted under section 12 -continue Olanzapine, remron, no need for inpatient Psych per Psych dysphagia--CONDUCTOR/BRAKEMAN recommend NDD2+[place] thick liquid hypokalemia--resolved, last K 4.7, nl mag Leukocytosis due to steroid Acute lactic acidosis--not due to sepsis, lkely from hypoxia Anemia, chronic. Continue to monitor hemoglobin. Mild protein calory malnutrition, poor intake, and aspiration on water speech to reassess tomorrow VTE prophylaxis: Heparin subcu Code status: Presumed full code. dispo: Patient deemed unfit to leave alone, HCP invoked and will need assisted placement, CM aware, PT recommends STR/possible snf care need for inpt: need for placement as stated above Quality Stroke Does the patient have a stroke diagnosis?: No VTE Prior VTE?: No VTE Risk Level:: Medical - moderate - high VTE Device Contraindication: Treatment Not Indicated VTE Drug Contraindication: N/A - Med Ordered
--- NOTE | 2023-09-13 10:32 | MHC.CM.PN ---
[facility] IS UNABLE TO OFFER A BED. REFERRALS EXPANDED TO INCLUDE ADDITIONAL SNF CHOICES. CM FOLLOWING FOR BED OFFER
--- NOTE | 2023-09-13 12:00 | MHC.CM.PN ---
UPDATES GIVEN TO [facility] PROTECTIVE OBSERVATORY DIRECTOR, SHEMAR WHITE @ [phone] X [phone].
--- NOTE | 2023-09-13 13:30 | MHC.CM.PN ---
15 SNF REFERRALS MADE OF THIS NOTE. 10 DENIALS OF BED OFFER AND FIVE NOT YET RESPONDED CASE MANAGEMENT TO CONTINUE TO FOLLOW AND UPDATE
--- NOTE | 2023-09-13 13:50 | MHC.SL.SWA ---
Speech Pathologist Impression: Dysphagia Risk of Aspiration Due to: History of Pneumonia Poor PO Intake Reduced Cognition Weak Voice Dysphasia Diet Status: Recommend NPO pending MBSS Liquid Consistency and Strategies for Safe Swallow: Liquid Intake Recommendation: NPO Liquid Intake Strategies: Small Sips No Straws Solid Food Consistency: Dietary Recommendations: NPO Oral Medication Intake: NPO Please contact the pharmacy regarding appropriate crushable or liquid drug formulations that are available whenever modified delivery is recommended. Recommendation for Speech: Inpatient Speech Therapy MBSS Considering hx of PNA, harsh/hoarse vocal quality, decreased PO intake, recent weight loss, and today's performance w/ PO (frequent coughing episodes, wet vocal quality, effortful breathing), recommend MBSS to rule in/out aspiration. MD and RN notified of recommendation for NPO pending MBSS via secure text. SNAPPER ON expressed concern to MD/RN for patient's ability/willingness to participate in MBSS and to be downgraded to NPO. Should patient decline recommendation for MBSS and/or NPO status, recommend further discussion w/ MD and care team. Vending Machine Host/Hostess Clinican/Clinical Fellow: No Supervisory Statement: I have reviewed and agree with the student/clinical fellow's documentation: N/A Speech Language Pathologist: Ny Killian M.A., CCC-SNAPPER ON
[2023-09-13] MEDS: Albuterol/Iprat 2.5/0.5MG 3 ML AMPUL.NEB INHALE (13:51)
[2023-09-13 14:20] VITALS: PULSE 85; RESP 20
--- NOTE | 2023-09-13 14:20 | MHC.CM.PN ---
CALL FROM YASEMIN [facility] ADMISSIONS. THIS IS CURRENTLY ONLY BED OFFER. FACILITY IS CONSIDERING A BED OFFER AND WILL BE MEETING ABOUT PATIENT TOMORROW. THEY ARE WILLING TO FOLLOW ALONG THROUGHOUT PATIENT STAY HERE, EVEN IF HE IS NOT DC THIS WEEK. YASEMIN IS AWARE THAT PATIENT IS NOW NPO STATUS. SHE ASKS THAT DOCUMENTS ALSO BE FAXED TO ADMISSIONS @ [phone] SPEECH THERAPY DYSPHAGIA NOTE FAXED TODAY YASEMIN TO CONNECT WITH CASE MANAGEMENT VIA EMAIL, WELL.
[2023-09-13] MEDS: Lactated Ringers 1,000 ML 80 ML IVCONT (17:14)
--- NOTE | 2023-09-13 18:04 | MHC.SL.IMP ---
Date of Plan of Treatment: 09/13/23 Onset of Symptoms/Illness: 09/07/23 Date Treatment Started: 09/07/23 Admitting Diagnosis: (1) Schizophrenia: Status: Acute (2) Pneumonia: Status: Acute (3) COPD (chronic obstructive pulmonary disease): Status: Acute Primary Speech & Language Diagnosis: R13.12 Oropharyngeal Phase Dysphagia Reason for Today's Visit: 22097 Modified Barium Swallow Study Pre-evaluation Dietary Consistencies: NPO Pre-evaluation Liquid Consistency: NPO Pre-evaluation Medication Administration: NPO Medical History: Reason for Study: Pt observed to be coughing on PO intake Referring Physician: Simone Rucker MD Evaluating Clinician: Vania Pickett MA, CCC-TORNADO CHASER Study Number: 1 Patient Name: Joaquín Esparza Status: Inpatient, Stretcher Age: 67 Gender: Male Medical History Medical History COPD (chronic obstructive pulmonary disease) Acidosis, lactic Leukocytosis Smoker in home Emphysema lung COPD (chronic obstructive pulmonary disease) Schizophrenia Right inguinal hernia Pneumonia Umbilical hernia COPD (chronic obstructive pulmonary disease) Pneumothorax COPD (chronic obstructive pulmonary disease) Current (pre-evaluation) Intake/Diet: Route: NPO Pre-Study Functional Oral Intake Scale (FOIS): 1- No oral intake SUBJECTIVE: Pt remains hospitalized for PNA and COPD exacerbation. PT is recommending STR/possible long-term care for the pt upon discharge from the hospital. TORNADO CHASER was consulted after pt failed his nursing swallow screen. Pt was observed to pack his mouth with food and also presented with significant tooth decay. He was recommended to start a ground diet (NDD2) for ease of mastication with thin liquids, then eventually downgraded to nectar thick liquids after pt was observed by RN and TORNADO CHASER to be coughing on thin liquid. Today pt presenting with prolonged, wet junky cough after PO intake, thus was made NPO and referred for MBSS to further assess the extent of pt?s dysphagia and to provide dietary recommendations. Food and Liquid Trials: Oral Impairment: Lip Closure: Did not test Oral Impairment: Tongue Control During Bolus Hold: Did not test Oral Impairment: Bolus Preparation/Mastication: 2=Disorganized chewing/mashing with solid pieces of bolus Oral Impairment: Bolus Transport/Lingual Motion: 3=Repetitive/disorganized tongue motion Oral Impairment: Oral Residue: 1=Trace residue lining oral structures Oral Impairment:Initiation of Pharyngeal Swallow: 3=Bolus head in pyriforms Pharyngeal Impairment: Soft Palate Elevation: 0=No bolus between soft palate (SP)/pharyngeal wall (PW) Pharyngeal Impairment: Laryngeal Elevation: 1=Partial thyroid cartilage/arytenoids to epiglottic petiole movement Pharyngeal Impairment: Anterior Hyoid Excursion: 1=Partial anterior movement Pharyngeal Impairment: Epiglottic Movement: 1=Partial inversion Pharyngeal Impairment: Laryngeal Vestibular Closure:: 1=Incomplete: narrow column air/contrast in laryngeal vestibule Pharyngeal Impairment: Pharyngeal Stripping Wave: 1=Present: diminished Pharyngeal Impairment: Pharyngeal Contraction: Did not test Pharyngeal Impairment: Pharyngoesophageal Segment Openin=Complete distension and complete duration: no obstruction of flow Pharyngeal Impairment: Tongue Base (TB) Retraction: 2=Narrow column of contrast/air between TB and posterior PW Pharyngeal Impairment: Pharyngeal Residue: 2=Collection of residue within or on pharyngeal structures Pharyngeal Impairment: Esophageal Clearance Upright Position: Did not test Impressions and Recommendations OBJECTIVE: Time-out: performed at 15:00 Evaluation Start: 14:30; Stop: 14:40 Patient Positioning: Seated 70-90 degrees Viewing Planes: LATERAL ONLY Contrast: MBSImP? Standardized Protocol using commercially prepared, standardized Barium viscosities, including: Varibar? THIN LIQUID (40% w/v, <15 cps) , Varibar? NECTAR (40% w/v, <150-450 cps) , Varibar? THIN HONEY (40% w/v, <800-1800 cps) , 1/2 Shortbread Cookie (1 x1 x.25 ) MBSImP ID: [id number] [facility]: Lip closure for intraoral bolus containment could not be assessed due to logistical reasons not related to physiologic impairment. Tongue control during bolus hold could not be assessed due to logistical reasons not related to physiologic impairment. Bolus preparation and mastication demonstrated disorganized chewing/mashing with solid pieces of the bolus unchewed. Bolus transport/lingual motion was with repetitive/disorganized motion of the tongue. Oral residue was a trace, lining oral structures. Initiation of the pharyngeal swallow occurred when the bolus head was in the pyriform sinuses. Soft palate elevation resulted in no bolus between the soft palate and the pharyngeal wall. Laryngeal elevation was decreased, with partial superior movement of the thyroid cartilage/partial approximation of the arytenoids to the epiglottic petiole. Anterior hyoid excursion demonstrated partial anterior movement. Epiglottic movement resulted in partial inversion. Laryngeal vestibular closure was incomplete, with a narrow column of air/contrast noted within the laryngeal vestibule at the height of the swallow. Pharyngeal stripping wave was present, but diminished. Pharyngeal contraction could not be determined due to logistical reasons not related to physiologic impairment. Pharyngoesophageal segment opening was completely distended for complete duration with no obstruction of bolus flow. Tongue base retraction allowed a narrow column of contrast or air between the retracted tongue base and the posterior pharyngeal wall. Pharyngeal residue was a collection of residue within or on pharyngeal structures. Esophageal clearance in the upright position could not be assessed due to logistical reasons not related to physiologic impairment. Oral Impairment Score: 8 (absence of score, component 1component 2) Pharyngeal Impairment Score: 9 (absence of score, component 13) Esophageal Impairment Score: --- (absence of score, component 17) Laryngeal Penetration and Aspiration: Both Penetration and Aspiration were observed in today's study. Ground texture, Puree, Honey-thick, [place]-thick Contrast entered the airway, remained above the vocal folds, and were ejected from the airway. Ground texture, Puree, Honey-thick, [place]-thick Contrast entered the airway, contacted the vocal folds, and were ejected from the airway. Thin Contrast entered the airway, passed below the vocal folds, and was not ejected from the trachea despite effort. ASSESSMENT: This exam was performed by the speech pathologist and radiologist. Pt was seated upright at 90 degrees in a stretcher. He was able to feed himself, trialing the following consistencies: -thin liquid barium (cup sips) -nectar thick liquid barium (cup sips) -honey thick liquid barium (cup sips) -pureed solid (applesauce mixed with barium paste) -ground solid (chicken salad mixed with barium paste) -regular texture solid (Christina Doone cookie coated with barium paste). Pt demonstrated impulsive feeding behaviors, often taking large bites and sips and packing his mouth. He benefited from verbal cues throughout the exam in order to take smaller sips, take one sip at a time, follow sips with a volitional throat clear then re-swallowing, taking smaller bites, dry swallow between bites to promote pharyngeal clearance. Unable to visualize labial seal with imaging. Clinically, pt did not appear to have any spillage beyond the jaime border. Posterior lingual motion was disorganized and characterized by repetitive tongue rocking motion, resulting in spilling of the bolus posteriorly to the valleculae and pyriforms prior to the pharyngeal swallow trigger. Mastication was slowed and disorganized with solid, unchewed pieces of bolus remaining. There was trace residue coating the tongue and the floor of mouth post-swallow, which cleared with additional swallows. Pharyngeal swallow trigger was notably delayed, initiated as the bolus head reached the pyriforms. There was no nasopharyngeal reflux. Incomplete laryngeal elevation and partial epiglottic inversion. Also noted incomplete laryngeal vestibular closure with contrast entering the airway. There was penetration above and to the level of the vocal folds with intake of nectar thick liquid, honey thick liquid, puree, and mixed media spilling from the valleculae and pyriforms with ground solid. Note reduced penetration with honey thick consistency. Pt was instructed to clear his throat after each sip and then re-swallow. This cleared contrast from the airway. There was stephen aspiration during the swallow on sips of thin liquid. Pt elicited a cough in response to aspiration event, which did not clear the contrast from the airway. There was moderate pharyngeal retention, especially with regular texture solid, mostly in the valleculae, with some coating to a lesser degree on the tongue base and in the pyriforms. Pt was able to reduce pharyngeal residue with additional dry swallows on each bolus. The following compensatory strategies have not been used until today's study, but when employed, improved swallowing function: Honey-thick Liquid decreased Penetration Additional Swallow(s) per Bolus decreased Pharyngeal Residue Throat Clear eliminated Penetration The following compensatory strategies have been used in therapy as well as in today's study and improved swallowing function: Bolus Volume Change decreased Penetration, Pharyngeal Residue Rate of Ingestion Change decreased Penetration, Pharyngeal Residue Liquid Intake Recommendation: Honey Thick Liquid Intake Strategies: Small Sips, No Straws Dietary Recommendations: Grnd/Mech Altered (NDD2) Medication Administration: Crushed with Puree Please contact the pharmacy regarding appropriate crushable or liquid drug formulations that are available whenever modified delivery is recommended. Compensatory Strategies Recommended: Sitting Upright (90 deg), Double Swallow, No Straw, Small Bites and Sips, Rate of Ingestion Change, Avoid Specific Foods Supervision during eating and or drinking: Total Assistance (1:1) Recommended Treatments: Compens. Strategy Educat. Recommendation for Speech Therapy: Inpatient Speech Therapy Speech Therapy through Rehab Facility Modified Barium Swallow Study - Outpatient Text Comment: Intake Recommendations: Route: PO Diet Grade: Mechanical Soft Liquid Consistencies: Honey Post-Study Functional Oral Intake Scale (FOIS): 5- Total oral intake of multiple consistencies requiring special preparation Pt presents with moderate oropharyngeal dysphagia, marked by delayed and disorganized oral phase, incomplete laryngeal elevation and partial epiglottic inversion. Evidence of aspiration during the swallow on thin liquid, to which pt elicited a cough but did not clear contrast from the airway. Evidence of penetration above and to the level of the vocal folds with nectar thick, honey thick, pureed, and mixed consistencies. Pt was instructed to clear his throat and re-swallow on each bolus which then cleared the contrast from the airway. Moderate level of residuals mostly in the valleculae. Pharyngeal retention was reduced with an additional dry swallows. Recommend UPGRADE from NPO, START on GROUND/MECH ALTERED (NDD2) diet and HONEY THICK liquids. Given pt?s impulsivity when feeding himself, it is CRUCIAL he be directly supervised and cued as needed. Following strategies are recommended to maximize feeding safety: -Liquids via teaspoon or individual cup sips -Avoid the use of straws -No chain sipping -After taking a sip, clear throat, then re-swallow -Avoid sticky or hard foods; mixed consistencies (i.e. thin broth soup with solid ingredients) -Take small bites, one bite at a time -After swallowing bite of food, follow with an additional dry swallow -Maintain 90 degree position during PO intake and for at least 30-45 minutes afterwards -Oral care before first meal and after each subsequent meal Therapy Recommendations: Therapy will be continued, TORNADO CHASER will continue to follow during hospitalization to provide dysphagia treatment. Strongly recommend continued speech therapy for dysphagia at the next level of care post-discharge. The following compensatory strategies and/or therapeutic exercises will be part of the upcoming therapy/management plan: Honey-thick Liquid Bolus Volume Change Rate of Ingestion Change Additional Swallow(s) per Bolus Throat Clear Prognosis for Improvement: The prognosis for the patient to meet nutritional needs by mouth is fair based on degree of impairment, stimulability for treatment. Detention Goals: ? The patient will tolerate the least restrictive diet with a safe/efficient swallow to maintain adequate nutrition and hydration. ? The patient and/or family will participate in further education for swallowing goals. Short Term Goals: ? Diet - The patient will tolerate a mechanical soft diet with honey thick liquids without signs or symptoms of penetration/aspiration 100% of the time. - The patient will participate in therapeutic PO trials with the TORNADO CHASER. ? Guidelines - The patient will comply with/recall the following guidelines/strategies 100% of the time with moderate cuing: Honey-thick Liquid, Bolus Volume Change, Rate of Ingestion Change, Additional Swallow(s) per Bolus, Throat Clear, No Straws. ? Education - The patient, caregiver will verbalize/demonstrate understanding of the results of this evaluation, the above recommendations, and the swallowing guidelines. Frequency/Duration: M-F PRN Date Range for Service Requested: Timeline to reassess: 3 months Clinician - Supplemental, Miscellaneous Communication: It is important to note MBSS objective studies are snapshots in time and Patient function might vary with factors such as time of day or concomitant medical conditions. For this reason, the final treatment plan for this patient should rest with their medical care team. Additional recommendations should be considered with the totality of the Patient in mind. Thank for the opportunity to participate in the care of this patient. If you have any questions about the content of this report, please contact the [facility] at [facility]. Associate Professor Of Literature Clinician/Clinical Fellow: No Supervisory Statement: N/A Speech Language Pathologist: Vania Pickett M.A., [facility]-TORNADO CHASER
[2023-09-13 19:17] VITALS: BP 125/79; PULSE 69; RESP 20; TEMP 36.4; O2SAT 100
--- NOTE | 2023-09-13 20:53 | HO.SKINPHOTO ---
Pt was seen to have this wound this evening. MD paged and notified and came to bedside. Per MD surgery will be consulted. Pt has ABD pad and brief in place to avoid constant contact as the pt needs constant redirection and requires distraction. Location:Right side of scrotum Category: Stage: Length: Width: Depth: cm
[2023-09-14] VITALS (7 sets, daily range): BP systolic 118–138; BP diastolic 56–63; PULSE 70–95; RESP 20–24; TEMP 36.1–37.3; O2SAT 95–100
[2023-09-14] MEDS: Lactated Ringers 1,000 ML 80 ML IVCONT (05:54)
[2023-09-14] MEDS: Albuterol/Iprat 2.5/0.5MG 3 ML AMPUL.NEB INHALE ×2 (08:30→22:05)
[2023-09-14] MEDS: 0.9 % Sodium Chloride Flush 3 ML SYRINGE IVFLUSH (08:58)
--- NOTE | 2023-09-14 09:57 | P.PNIM_ITS ---
Subjective Subjective Date of Service: 09/14/23 Interval History: He is very pleasnt today, talking, cooperative, and wants lots of food Physical Exam 2 Vital Signs: Vital Signs: Last Vital Signs Temp 98.6 F 09/14/23 07:17 Pulse 70 09/14/23 08:30 Resp 20 09/14/23 08:30 BP 135/63 09/14/23 07:17 Pulse Ox 98 09/14/23 07:17 O2 Del Method Nasal Cannula 09/14/23 07:17 O2 Flow Rate 2 09/14/23 07:17 Oxygen Flow Rate 4 09/06/23 19:33 BMI result Body Mass Index 22.9 Const: Other: General: AO X 2, no acute distress Resp: CTA bilateral CVS: S1,S2,RRR GI: +BS, NT, no distention Skin: No rash Neuro: motor grossly intact Psych: appropriate affect Objective Data Active Medications Acetaminophen (Acetaminophen 325 Mg Tablet) 650 mg PO Q6H PRN PRN Reason: Pain, Mild (Pain Scale 1-3) Albuterol/Ipratropium (Albuterol/Iprat 2.5/0.5mg 3 Ml Ampul.Neb) 3 ml INHALE RQ4H WHILE AWAKE PRN PRN Reason: Shortness Of Breath/Wheezing Last Admin: 09/14/23 08:30 Dose: 3 ml Documented By: ATUL Amoxicillin/Clavulanate Potassium (Amoxicillin/Potassium Clav 875 Mg Tablet) 875 mg PO Q12H [facility] Last Admin: 09/14/23 07:31 Dose: Not Given Documented By: EVELINE Non-Admin Reason: NPO Benzonatate (Benzonatate 100 Mg Capsule) 100 mg PO TID PRN PRN Reason: Cough Last Admin: 09/12/23 08:46 Dose: 100 mg Documented By: ALEXA Cyanocobalamin (Cyanocobalamin (Vitamin B-12) 500 Mcg Tablet) 500 mcg PO BID [facility] Last Admin: 09/14/23 07:30 Dose: Not Given Documented By: EVELINE Non-Admin Reason: NPO Folic Acid (Folic Acid 1 Mg Tablet) 1 mg PO DAILY [facility] Last Admin: 09/14/23 07:30 Dose: Not Given Documented By: EVELINE Non-Admin Reason: NPO Gabapentin (Gabapentin 100 Mg Capsule) 100 mg PO BID [facility] Last Admin: 09/14/23 07:30 Dose: Not Given Documented By: EVELINE Non-Admin Reason: NPO Guaifenesin (Guaifenesin La 600 Mg Tab.Er.12h) 600 mg PO BID [facility] Last Admin: 09/14/23 07:31 Dose: Not Given Documented By: EVELINE Non-Admin Reason: NPO Heparin Sodium (Porcine) (Heparin Sodium,Porcine 5,000 Unit/Ml Vial) 5,000 unit SUBCUT Q8H [facility] Last Admin: 09/14/23 04:08 Dose: Not Given Documented By: GAGAN Non-Admin Reason: Patient Refused Lactated Ringer's (Lr) 1,000 mls @ 80 mls/hr IVCONT .[id number] [facility] Last Admin: 09/14/23 05:54 Dose: 80 mls/hr Documented By: GAGAN Levalbuterol HCl (Levalbuterol Hcl 1.25 Mg/3 Ml Vial.Neb) 1.25 mg INHALE Q4H PRN PRN Reason: Shortness of Breath/Wheezing Last Admin: 09/07/23 12:52 Dose: 1.25 mg Documented By: JUVE Megestrol Acetate (Megestrol Acetate 400 Mg/10 Ml Oral.Susp) 200 mg PO BID [facility] Last Admin: 09/14/23 07:31 Dose: Not Given Documented By: EVELINE Non-Admin Reason: NPO Mirtazapine (Mirtazapine 7.5 Mg Tablet) 7.5 mg PO BEDTIME [facility] Last Admin: 09/13/23 21:27 Dose: Not Given Documented By: GAGAN Non-Admin Reason: NPO Olanzapine (Olanzapine 7.5 Mg Tablet) 15 mg PO BEDTIME [facility] Last Admin: 09/13/23 21:27 Dose: Not Given Documented By: GAGAN Non-Admin Reason: NPO Polyethylene Glycol (Polyethylene Glycol 3350 17 Gm Powd.Pack) 17 gm PO BID PRN PRN Reason: Constipation Prednisone (Prednisone 20 Mg Tablet) 20 mg PO DAILY [facility] Last Admin: 09/14/23 07:31 Dose: Not Given Documented By: EVELINE Non-Admin Reason: NPO Psyllium Hydrophilic Mucilloid (Psyllium Seed 3.7 Gm Packet) 3.7 gm PO DAILY [facility] Last Admin: 09/14/23 07:31 Dose: Not Given Documented By: EVELINE Non-Admin Reason: NPO Sodium Chloride (0.9 % Sodium Chloride Flush 3 Ml Syringe) 3 ml IVFLUSH QSHIFT [facility] Last Admin: 09/14/23 08:58 Dose: 3 ml Documented By: KATHIA Tamsulosin HCl (Tamsulosin Hcl 0.4 Mg Capsule) 0.8 mg PO DAILY [facility] Last Admin: 09/14/23 07:31 Dose: Not Given Documented By: EVELINE Non-Admin Reason: NPO Thiamine HCl (Thiamine Hcl 100 Mg Tablet) 100 mg PO DAILY [facility] Last Admin: 09/14/23 07:31 Dose: Not Given Documented By: EVELINE Non-Admin Reason: NPO Labs 09/10/23 07:38 09/10/23 07:38 Assessment and Plan (1) Schizophrenia: Status: Acute (2) Pneumonia: Status: Acute Plan This is a 67 years old male with history of chronic respiratory failure/COPD on 4 L of supplemental oxygen, it, tobacco dependence fountain on Section 12 as the patient has reportedly been doing poorly over the past several weeks and has been having increasing paranoia, decreased p.o. intake and weight loss. Acute on chronic respiratory failure with hypoxia/COPD ex, resolved. -bronchodilators PRN -Oral steroid, wean off -O2 gaol of 88 to 92 Community-acquired pneumonia with concern for aspiration PNA as well was on Azithro + ceftriaxone, Unassyn added 09/09. -Changed to Augmentin on 09/11 for total 7 days, stop today Schizophrenia, admitted under section 12 -continue Olanzapine, remron, no need for inpatient Psych per Psych dysphagia--[employer] recommend NDD2+[place] thick liquid hypokalemia--resolved, last K 4.7, nl mag Leukocytosis due to steroid Acute lactic acidosis--not due to sepsis, lkely from hypoxia Anemia, chronic. Continue to monitor hemoglobin. Mild protein calory malnutrition, poor intake, and aspiration on water speech to reassess tomorrow VTE prophylaxis: Heparin subcu Code status: Presumed full code. dispo: Patient deemed unfit to leave alone, HCP invoked and will need skilled nursing placement, CM aware, PT recommends STR/possible manager medical writing care need for inpt: need for placement as stated above Quality Stroke Does the patient have a stroke diagnosis?: No VTE Prior VTE?: No VTE Risk Level:: Medical - moderate - high VTE Device Contraindication: Treatment Not Indicated VTE Drug Contraindication: N/A - Med Ordered
--- NOTE | 2023-09-14 12:45 | PM.CNGS ---
History of Present Illness Consult details Consult date: 09/14/23 Requesting physician: Simone Rucker Narrative: 67-year-old male patient presenting with community-acquired pneumonia found to have a scrotal tear on the right scrotal sac. He is uncertain when this occurred but feels it was least a month ago. He denies any history of trauma to the site. Patient complains of significant soreness from the wound. Review of Systems Review of Systems: Yes Unobtainable due to mental condition PMFSH Past Medical History Medical History COPD (chronic obstructive pulmonary disease) Acidosis, lactic Leukocytosis Smoker in home Emphysema lung COPD (chronic obstructive pulmonary disease) Schizophrenia Right inguinal hernia Pneumonia Umbilical hernia COPD (chronic obstructive pulmonary disease) Pneumothorax COPD (chronic obstructive pulmonary disease) Family History Family History Father CAD (coronary artery disease) Surgical History Surgical History No pertinent past surgical history Social History Social History Household Members: Other Household Members Other:: roommate Housing: Other Housing Other:: hotel Do you presently have visiting nurse or other home services: No Unable to assess alcohol history related to: Unknown Alcohol intake: current Alcohol intake frequency: a few times a month Alcohol type: beer Comment: pt turned off bed alarm Patient Tobacco Use Status: Former Tobacco user Tobacco use type: Cigarette Cigarette Packs Per Day: 1 Cigarettes Per Day: 20.0 e-Cigarette/Vaping Use: Currently Using Second Hand Smoke Exposure: No Advance Directives Date on File: 05/26/22 service: Yes Current occupational status: 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 Meds Allergies Allergy/AdvReac Type Severity Reaction Status Date / Time tree and shrub pollen Allergy Mild Rash Verified 09/06/23 19:33 Active Medications: Current Medications Acetaminophen (Acetaminophen 325 Mg Tablet) 650 mg PO Q6H PRN PRN Reason: Pain, Mild (Pain Scale 1-3) Albuterol/Ipratropium (Albuterol/Iprat 2.5/0.5mg 3 Ml Ampul.Neb) 3 ml INHALE RQ4H WHILE AWAKE PRN PRN Reason: Shortness Of Breath/Wheezing Last Admin: 09/14/23 08:30 Dose: 3 ml Amoxicillin/Clavulanate Potassium (Amoxicillin/Potassium Clav 875 Mg Tablet) 875 mg PO Q12H [facility] Last Admin: 09/14/23 07:31 Dose: Not Given Benzonatate (Benzonatate 100 Mg Capsule) 100 mg PO TID PRN PRN Reason: Cough Last Admin: 09/12/23 08:46 Dose: 100 mg Cyanocobalamin (Cyanocobalamin (Vitamin B-12) 500 Mcg Tablet) 500 mcg PO BID [facility] Last Admin: 09/14/23 07:30 Dose: Not Given Folic Acid (Folic Acid 1 Mg Tablet) 1 mg PO DAILY [facility] Last Admin: 09/14/23 07:30 Dose: Not Given Gabapentin (Gabapentin 100 Mg Capsule) 100 mg PO BID [facility] Last Admin: 09/14/23 07:30 Dose: Not Given Guaifenesin (Guaifenesin La 600 Mg Tab.Er.12h) 600 mg PO BID [facility] Last Admin: 09/14/23 07:31 Dose: Not Given Heparin Sodium (Porcine) (Heparin Sodium,Porcine 5,000 Unit/Ml Vial) 5,000 unit SUBCUT Q8H [facility] Last Admin: 09/14/23 04:08 Dose: Not Given Megestrol Acetate (Megestrol Acetate 400 Mg/10 Ml Oral.Susp) 200 mg PO BID [facility] Last Admin: 09/14/23 07:31 Dose: Not Given Mirtazapine (Mirtazapine 7.5 Mg Tablet) 7.5 mg PO BEDTIME [facility] Last Admin: 09/13/23 21:27 Dose: Not Given Olanzapine (Olanzapine 7.5 Mg Tablet) 15 mg PO BEDTIME [facility] Last Admin: 09/13/23 21:27 Dose: Not Given Polyethylene Glycol (Polyethylene Glycol 3350 17 Gm Powd.Pack) 17 gm PO BID PRN PRN Reason: Constipation Prednisone (Prednisone 20 Mg Tablet) 20 mg PO DAILY [facility] Last Admin: 09/14/23 07:31 Dose: Not Given Psyllium Hydrophilic Mucilloid (Psyllium Seed 3.7 Gm Packet) 3.7 gm PO DAILY [facility] Last Admin: 09/14/23 07:31 Dose: Not Given Sodium Chloride (0.9 % Sodium Chloride Flush 3 Ml Syringe) 3 ml IVFLUSH QSHIFT [facility] Last Admin: 09/14/23 08:58 Dose: 3 ml Tamsulosin HCl (Tamsulosin Hcl 0.4 Mg Capsule) 0.8 mg PO DAILY [facility] Last Admin: 09/14/23 07:31 Dose: Not Given Thiamine HCl (Thiamine Hcl 100 Mg Tablet) 100 mg PO DAILY [facility] Last Admin: 09/14/23 07:31 Dose: Not Given Home Medications Medication Instructions Recorded Confirmed Last Taken Type acamprosate 333 mg tablet,delayed 333 mg PO TID 01/25/22 09/07/23 06/10/22 History release benzonatate 100 mg capsule 100 mg PO TID PRN Cough 01/25/22 09/07/23 Unknown History buspirone 7.5 mg tablet 7.5 mg PO BID 01/25/22 09/07/23 06/10/22 History docusate sodium 100 mg capsule 100 mg PO DAILY PRN Constipation 01/25/22 09/07/23 Unknown History fluticasone 500 mcg-salmeterol 50 1 inh inhalation BID 01/25/22 09/07/23 06/10/22 History mcg/dose blistr powdr for inhalation (Advair Diskus) folic acid 1 mg tablet 1 mg PO DAILY 01/25/22 09/07/23 06/10/22 History gabapentin 100 mg capsule 100 mg PO BID 01/25/22 09/07/23 06/10/22 History megestrol 400 mg/10 mL (10 mL) 200 mg PO BID 01/25/22 09/07/23 06/10/22 History oral suspension olanzapine 10 mg tablet 10 mg PO BEDTIME 01/25/22 09/07/23 06/10/22 History psyllium 1 tbsp PO DAILY 01/25/22 09/07/23 06/10/22 History tamsulosin 0.4 mg capsule 0.8 mg PO DAILY 01/25/22 09/07/23 06/10/22 History tiotropium bromide 2.5 2 puff inhalation DAILY 01/25/22 09/07/23 06/10/22 History mcg/actuation mist for inhalation guaifenesin 600 mg tablet, 600 mg PO BID 05/13/22 09/07/23 06/10/22 History extended release 12 hr albuterol sulfate 90 mcg/actuation 1 inh inhalation Q6H PRN Shortness 06/11/22 09/07/23 Unknown History aerosol inhaler (ProAir HFA) Of Breath Or Wheezing acetaminophen 300 mg-codeine 30 mg 1 tab PO BID PRN Pain 09/07/23 09/07/23 Unknown History tablet baclofen 10 mg tablet 10 mg PO QID PRN Muscle Spasm 09/07/23 09/07/23 Unknown History cyanocobalamin (vitamin B-12) 500 500 mcg PO BID 09/07/23 09/07/23 Unknown History mcg tablet food supplemt, lactose-reduced 1 ea PO BID 09/07/23 09/07/23 Unknown History mirtazapine 7.5 mg tablet 7.5 mg PO BEDTIME 09/07/23 09/07/23 Unknown History polyethylene glycol 3350 17 17 g PO BID PRN Constipation 09/07/23 09/07/23 Unknown History gram/dose oral powder (Miralax) prednisone 5 mg tablet 5 mg PO DAILY PRN asthma 09/07/23 09/07/23 Unknown History thiamine HCl (vitamin B1) 100 mg 100 mg PO DAILY 09/07/23 09/07/23 Unknown History tablet Physical Exam Vital Signs: Vital Signs: Last Vital Signs Temp 99.0 F 09/14/23 11:23 Pulse 85 09/14/23 11:23 Resp 20 09/14/23 11:23 BP 118/56 L 09/14/23 11:23 Pulse Ox 100 09/14/23 11:23 O2 Del Method Nasal Cannula 09/14/23 11:23 O2 Flow Rate 2 09/14/23 11:23 Oxygen Flow Rate 4 09/06/23 19:33 BMI result Body Mass Index 22.9 Const: General: comfortable and no acute distress Nutritional Appearance: thin Orientation/consciousness: patient oriented x3 Resp: Effort & Inspection: normal respiratory effort and Actively coughing Auscultation: crackles and rhonchi GI: Inspection: Yes normal to inspection : Other: Linear tear noted in the right scrotal sac with no surrounding erythema or abscess. No evidence of granulation tissue. No active bleeding. Skin: General skin exam: no rashes or lesions noted Neuro: General: patient oriented x3 Results Labs 09/10/23 07:38 09/10/23 07:38 Labs: Urine 09/07/23 Range/Units 01:29 Urine Color Yellow Urine Appearance Clear Urine pH 6.5 (5.0-9.0) Ur Specific [place] >= 1.030 H (1.005-1.025) Urine Protein Negative (Neg-Trace) mg/dL Urine Glucose (UA) Negative (Negative) mg/dL All other labs normal. Assessment and Plan (1) Scrotal trauma: Qualifiers: Encounter type: initial encounter Qualified Code(s): S39.94XA - Unspecified injury of external genitals, initial encounter Status: Acute Plan 67-year-old male patient presenting with scrotal trauma of unknown duration found to have a linear laceration in the scrotal skin. The patient complains of burning pain from the lesion. The wound was cleansed and a Xeroform patch applied. Recommend changing Xeroform twice daily. Also recommend consultation with Urology. Procedures Date of Service Date of Service: 09/14/23
--- NOTE | 2023-09-14 13:44 | MHC.CM.PN ---
[facility] HAS OFFERED PT A BED. PTS SISTER/HCP CHRISTINE MONTOYA UPDATED AND IN AGREEMENT WITH PLAN. PASRR BEING FILLED OUT TODAY. PT WILL D/C TOMORROW VIA BLS. AWARE.
--- NOTE | 2023-09-14 16:12 | P.CDIM_ITS ---
PROVIDER RESPONSE TEXT: To clarify, the appropriate diagnosis supported by the clinical indicators: Aspiration Pneumonia: likely QUERY TEXT: PHYSICIAN'S DOCUMENTATION REQUEST Date of Query: 09/11/2023 12:41 PM EST Patient Name: Joaquín Esparza Admit Date: 09/07/2023 Dear Simone Rucker, A review of the medical record indicates additional documentation may be needed. Please review below and update the documentation accordingly. Clinical Indicators: Progress notes dated 09/10 & 09/11 - Community-acquired pneumonia with concern for aspiration pneumonia as well. Speech clinical swallow performed. Hyperventilating, refusing care, only wanting water which reportedly he has been choking on. Was on Azithro + ceftriaxone, Unassyn added 09/09. Based on the above, could you clarify the documented aspiration pneumonia: Aspiration Pneumonia suspected, possible, probable, ruled out etc. Other (explain) Clinically unable to determine (explain) Thank you, Laura Joe, CCS, CDIS Use of terms such as suspected, likely, concern for, or probable (associated with a specific diagnosi s that is being evaluated, monitored, or treated as if it exists) are acceptable and can be coded in the inpatient se tting, when documented at the time of discharge. Please use your independent medical judgment in providing your response. THIS QUERY IS PART OF THE PERMANENT MEDICAL RECORD
--- NOTE | 2023-09-14 16:28 | HO.WOUND ---
Wound Consult: Initial 67yr old? M admitted to [facility] on 09/07 - See progress notes and H&P for detailed history.? Wound consult placed for right Scrotum.? Patient agreeable to assessment and photo documentation.? Pt reports he has had the wound for sometime but is unable to recall how he obtained the wound. He reports he has popped the area in the past. Right Scrotum Etiology: ?Ulceration Measurements: c1.5m x 0.5cm x 0.2cm Wound Bed: full thickness tissue loss - appears chronic with epibole edges no observed bleeding and appears to be exposed testicle - the right testicle is firm on palpation and raised not dropped Drainage / Odor: None noted Edges: ? epibole Stephanie wound: ?mild erythema noted firmness to testicle noted - No Induration, Fluctuance or Warmth noted Pain: denies Goals of Treatment: ? Moist wound healing - defer to urology Recommendations: 1. Turn and Reposition every 2 hours and as needed for patient comfort.? Use pillows or wedges to support off loading positions. 2. Off Load all bony prominences with use of pillows and heel boots if needed.? Apply Preventative foams where needed. ? 3. Monitor for incontinence and moisture control, use barrier creams when needed for prevention and treatment. 4. Provide adequate and supplemental nutrition.? 5. Order or Continue low air loss mattress. 6. When applicable maintain blood glucose levels per Providers order. 7. Right Testicle - Cleanse with NS, pat dry. Apply wound gel covered by dry gauze, abd pad and secure in place with mesh underwear. Protect from scratching and trauma. Do not use briefs. Re-consult wound care Nurse for wound deterioration or wound changes.
--- NOTE | 2023-09-14 16:59 | MHC.SL.SWA ---
Speech Pathologist Impression: Risk of Aspiration Due to: Medically Fragile History of Pneumonia Dysphasia Diet Status: Continue on Ground Mechanical Altered and HONEY THICK liquids, pills crushed in puree. Liquid Consistency and Strategies for Safe Swallow: Liquid Intake Recommendation: Honey Thick Liquid Intake Strategies: No Straws Solid Food Consistency: Dietary Recommendations: Grnd/Mech Altered (NDD2) Additional Modifications to Solid Foods: Avoid mixed textures, thin gravies. Patient eats rapidly and may need cues to slow down. Patient will request water, can only have HONEY THICK consistency. Oral Medication Intake: Crushed with Puree Please contact the pharmacy regarding appropriate crushable or liquid drug formulations that are available whenever modified delivery is recommended. Compensatory Strategies and Precautions to be Taken for Safe Swallow: Sitting Upright (90 deg) No Straw Liquids from Cup Small Bites and Sips Alternate Liquids/Solids Supervision While Eating and Drinking for Safe Swallow: Total Supervision (1:1) Foods to Avoid: Avoid sticky or hard foods; mixed consistencies (i.e. thin broth soup with solid ingredients) Swallowing Recommended Treatments: Compens. Strategy Educat. Recommendation for Speech: Inpatient Speech Therapy Speech Therapy through Rehab Facility Modified Barium Swallow Study - Outpatient Comment: Patient was seen at lunch, which arrived after the therapist entered the room. Patient upon seeing therapist protested that he was hungry and wanted food, water and grape juice. [employer] then retrieved lunch tray that had arrived, with patient sitting on edge of bed, tray was placed on table in front of him so he could access. Patient then began to rapidly consume food on tray. Patient directed shopper marketing manager to have a seat. Patient took mouthfuls of ground chicken that had ample gravy, mashed potatoes and mashed carrots. Although eating at a rapid pace, patient appeared to tolerate these solid consistencies well, with no evidence of clinical signs of aspiration. Patient had three thickened juices on the tray marked Honey Thick though on inspection were a thin nectar consistency. [employer] thickened these liquids to more appropriate level with packet of thickener. Patient mostly focused on solid foods during meal, but was cued occasionally to take sips of liquid, which he did so independently, without any difficulty or evident signs of aspiration. As patient grew closer to finish meal, he began to demand another tray. Patient reportedly ate two trays of breakfast this morning. Patient was advised to finish all aspects of meal before considering more food. It was noted that the gravy on the chicken was markedly thin, patient upon finishing the meat took tsps of the gravy, but then coughed. [facility] with gravy was removed from the tray. Patient upon finishing the meal then stated I am taking a five minute break, then I want more food. [employer] advised RN of patient's request. From [facility] 09/13/22 Diet Grade: Mechanical Soft Liquid Consistencies: Honey Post-Study Functional Oral Intake Scale (FOIS): 5- Total oral intake of multiple consistencies requiring special preparation Pt presents with moderate oropharyngeal dysphagia, marked by delayed and disorganized oral phase, incomplete laryngeal elevation and partial epiglottic inversion. Evidence of aspiration during the swallow on thin liquid, to which pt elicited a cough but did not clear contrast from the airway. Evidence of penetration above and to the level of the vocal folds with nectar thick, honey thick, pureed, and mixed consistencies. Pt was instructed to clear his throat and re-swallow on each bolus which then cleared the contrast from the airway. Moderate level of residuals mostly in the valleculae. Pharyngeal retention was reduced with an additional dry swallows. Recommend UPGRADE from NPO, START on GROUND/MECH ALTERED (NDD2) diet and HONEY THICK liquids. Given pt?s impulsivity when feeding himself, it is CRUCIAL he be directly supervised and cued as needed. Following strategies are recommended to maximize feeding safety: -Liquids via teaspoon or individual cup sips -Avoid the use of straws -No chain sipping -After taking a sip, clear throat, then re-swallow -Avoid sticky or hard foods; mixed consistencies (i.e. thin broth soup with solid ingredients) -Take small bites, one bite at a time -After swallowing bite of food, follow with an additional dry swallow -Maintain 90 degree position during PO intake and for at least 30-45 minutes afterwards -Oral care before first meal and after each subsequent meal Ice Cream Freezer Assistant Clinican/Clinical Fellow: No Supervisory Statement: I have reviewed and agree with the student/clinical fellow's documentation: N/A Speech Language Pathologist: Yesenia Dasilva M.A., CCC-[employer]
[2023-09-14] MEDS: Cyanocobalamin (Vitamin B-12) 500 MCG TABLET PO (21:48)
[2023-09-14] MEDS: guaiFENesin LA 600 MG TAB.ER.12H PO (21:48)
[2023-09-14] MEDS: Mirtazapine 7.5 MG TABLET PO (21:48)
[2023-09-14] MEDS: Megestrol Acetate 400 MG/10 ML ORAL.SUSP 200 MG PO (21:48)
[2023-09-14] MEDS: Amoxicillin/Potassium Clav 875 MG TABLET PO (21:48)
[2023-09-14] MEDS: OLANZapine 7.5 MG TABLET 15 MG PO (21:48)
[2023-09-14] MEDS: Gabapentin 100 MG CAPSULE PO (21:48)
[2023-09-15 03:12] VITALS: BP 128/64; PULSE 68; RESP 18; TEMP 36.8; O2SAT 99
[2023-09-15] MEDS: 0.9 % Sodium Chloride Flush 3 ML SYRINGE IVFLUSH ×2 (06:13→22:54)
--- NOTE | 2023-09-15 07:00 | P.DS_ITS ---
DS: Providers Provider Date of Service: 09/18/23 Date of admission: 09/07/23 00:45 Primary care physician: APRYL Bah Consults: 09/07/23 03:35 Consult to Psychiatry Routine Consulting Provider: Psych Covering Reason for consultation: Acute paranoia, on section 12;?capacity 09/11/23 10:35 Consult to Care Team Routine Comment: Reason for consultation: decompensated schizophrenia, medically ready to dc 09/13/23 22:11 Consult to General Surgery Routine Consulting Provider: [facility] [place] [facility] Sur[facility] Reason for consultation: scrotal skin tear 09/14/23 11:14 Consult to Wound Care Routine Reason for consultation: wound to right scrotum 09/14/23 12:47 Consult to Urology Routine Consulting Provider: Elizabeth Andersen Reason for consultation: scrotal laceration Has provider been notified: No DS: Diagnosis Discharge Diagnosis (1) Scrotal trauma: Status: Acute DS: Summary Hospital Course Hospital Course: admission hpi Attending physician on admission: Lori Patiño Chief Complaint: Patient is doing poorly and not eating accoding to visiting nurse Joaquín Esparza is a 67 years old man with past medical history significant for COPD and schizophrenia was brought via EMS to the emergency department after he was noted doing poorly and not eating by his visiting nurse. Patient has lost 15 lb over the last several months. HPI was obtained from patient's chart and e mergency provider as he patient also has acute psych symptoms. It seems like the patient has been quite paranoid and confused. Patient [facility] in [facility] as the patient was very confused, paranoid and impairment of judgment. On evaluation patient was sleeping soundly. In the ED, he was found to have normal vital signs. Blood workup is remarkable for anemia which is at baseline, and hypokalemia, 2.9. Corrected sodium is 135. Lactic acid is elevated (last is 2.6). CRP is elevated. Urinalysis showed elevated specific gravity but no findings of UTI. Urine drug screen is negative. Blood cultures were obtained. He underwent a chest CT scan that showed Emphysema with large bullae with septations in the left upper lobe, left mid lung consolidation/infiltrate + left lower lobe patchy airspace infiltrate. ED tx: azithromycin 500 mg IV x1, ceftriaxone 1 g IV x1, DuoNeb. Hospital course: The patient has chronic respiratory failure and is on supplemental O2 and has been living at hotel/motel. Visiting nurse reported patient doing poorly, malnurished and was also noted to have acute respiratory distress in the ED and found to have pneumonia with acute exacerbation of COPD. Acute on chronic respiratory failure with hypoxia due to pneumonia and copd exacerbation as treated with his supplemental O2, IV steroid later changed to oral steroid. Acute respiratory failure has not resolved and weaned of steroid. Acute exacerbation of COPD--treated with bronchodilators by Neb, IV steroid which was later changed to Oral Prednisone and now discontinued. He is on supplemental O2 at saturating 99 on 2 liters, to continue his home inhalers Schizophrenia, admitted under section 12. He was seen by Psych with recommen dation to increase Olanzapine from 10 to 15 at bedtime, he was deemed not needing inpatient treatment Dysphagia--he has chronic dysphagia assess by BUSHEL GIRL and had modified barium study and is recommended for NDD2+[place] thick liquid hypokalemia--resolved, last K 4.7, nl mag Leukocytosis due to steroid Scrotal Cyst/Laceration--US showed Complex multiloculated cyst in the left scrotum measuring 2.5 x 2.2 x1.3 cm. Differential would include an epididymal cyst and loculated complex hydrocele. This was evaluated by Urology and had a Nuclear scan which showed No asymmetric flow seen to the testes on initial perfusion images. On static images there is progressive decrease activity with a defect in right scrotum, especially on the last static images by 10 minutes probably related to torsion or mass but on clinical ground there is no torsion, the laceration was due to patient picking in the area, there is no evidence of infection and is healing. No further testing per urology, outpatient follow up Acute lactic acidosis--not due to sepsis, lkely from hypoxia Anemia, chronic and stable. Anxiety--ativan prn Mild protein calory malnutrition.. Ensure supplement with meals Dispo: To short term rehab for less than 30 days Time Attestation Discharge coordination time: Greater than 30 minutes Quality: Safe Use of Opioids Does Pt have an Active Cancer Diagnosis on the Problem List?: No Quality: Stroke Does the patient have a stroke diagnosis?: No Physical Exam Vital Signs: Vital Signs: Last Vital Signs Temp 98.2 F 09/15/23 03:12 Pulse 68 09/15/23 03:12 Resp 18 09/15/23 03:12 BP 128/64 09/15/23 03:12 Pulse Ox 99 09/15/23 03:12 O2 Del Method Nasal Cannula 09/15/23 03:12 O2 Flow Rate 2 09/15/23 03:12 Oxygen Flow Rate 4 09/06/23 19:33 BMI result Body Mass Index 22.9 Const: Other: General: AO X 2, no acute distress Resp: CTA bilateral CVS: S1,S2,RRR GI: +BS, NT, no distention Skin: No rash Neuro: motor grossly intact Psych: appropriate affect DS: Data Data Completed and Pending Completed studies during hospitalization [Text1]: Procedures Extirpation of Matter from Anus, Via Natural or Artificial Opening (05/13/22) Discharge Plan Discharge Anticipated Discharge Date/Time: 09/18/23 09:09 Patient Disposition: Xfer SNF Discharge Diagnosis: Acute on chronic hypoxic resp failure due to copd [facility]: [facility] [Outside] - 1 Week All Nicholas PA [Primary Care Provider] - 1 Week Discharge Medications: New olanzapine 7.5 mg Tablet 15 mg PO BEDTIME Qty: 60 0RF lorazepam [Ativan] 0.5 mg tablet 0.25 mg PO TID PRN (Reason: anxiety) Qty: 14 0RF ipratropium-albuterol 0.5 mg-3 mg(2.5 mg base)/3 mL solution for nebulization 3 ml inhalation Q6H PRN (Reason: shortness of breath) Qty: 90 0RF Continued guaifenesin 600 mg Tablet Extended Release 12hr 600 mg PO BID psyllium Powder 1 tbsp PO DAILY Rx Instructions: mix into at least 8 oz of water or juice before administering tamsulosin 0.4 mg Capsule 0.8 mg PO DAILY benzonatate 100 mg Capsule 100 mg PO TID PRN (Reason: Cough) fluticasone propion-salmeterol [Advair Diskus] 500-50 mcg/dose Blister With Device 1 inh INHALATION BID docusate sodium 100 mg Capsule 100 mg PO DAILY PRN (Reason: Constipation) buspirone 7.5 mg Tablet 7.5 mg PO BID folic acid 1 mg Tablet 1 mg PO DAILY gabapentin 100 mg Capsule 100 mg PO BID acamprosate 333 mg Tablet,Delayed Release (Dr/Ec) 333 mg PO TID tiotropium bromide 2.5 mcg/actuation Mist 2 puff INHALATION DAILY megestrol 400 mg/10 mL (10 mL) Suspension 200 mg PO BID albuterol sulfate [ProAir HFA] 90 mcg/actuation HFA aerosol inhaler 1 inh inhalation Q6H PRN (Reason: Shortness Of Breath Or Wheezing) prednisone 5 mg Tablet 5 mg PO DAILY PRN (Reason: asthma) thiamine HCl (vitamin B1) 100 mg Tablet 100 mg PO DAILY acetaminophen-codeine 300-30 mg Tablet 1 tab PO BID PRN (Reason: Pain) cyanocobalamin (vitamin B-12) 500 mcg Tablet 500 mcg PO BID baclofen 10 mg Tablet 10 mg PO QID PRN (Reason: Muscle Spasm) food supplemt, lactose-reduced Liquid 1 ea PO BID mirtazapine 7.5 mg Tablet 7.5 mg PO BEDTIME polyethylene glycol 3350 [Miralax] 17 gram/dose powder 17 g PO BID PRN (Reason: Constipation) Discontinued olanzapine 10 mg Tablet 10 mg PO BEDTIME Discharge Orders: Discharge Order (Routine); Ordered 09/18/23 Ordered By: Simone Rucker Diet: Advance to usual diet Activity on Discharge: As tolerated Stand Alone Forms: Patient Portal Discharge page Care Plan Goals: recovery from copd exacerbation Health Concerns: schizophrenia copd Plan of Treatment: continue taking your medication as before Assessment: as above
[2023-09-15 07:24] VITALS: BP 137/62; PULSE 87; RESP 18; TEMP 36.4; O2SAT 99
[2023-09-15] MEDS: Psyllium seed 3.7 GM PACKET PO (09:34)
[2023-09-15] MEDS: Megestrol Acetate 400 MG/10 ML ORAL.SUSP 200 MG PO ×2 (09:34→23:25)
[2023-09-15] MEDS: Folic Acid 1 MG TABLET PO (09:35)
[2023-09-15] MEDS: Thiamine HCL 100 MG TABLET PO (09:35)
[2023-09-15] MEDS: Gabapentin 100 MG CAPSULE PO ×2 (09:35→22:44)
[2023-09-15] MEDS: Cyanocobalamin (Vitamin B-12) 500 MCG TABLET PO ×2 (09:35→22:44)
[2023-09-15] MEDS: Tamsulosin HCL 0.4 MG CAPSULE 0.8 MG PO (09:38)
--- NOTE | 2023-09-15 09:40 | PC.NURSE ---
informed md and pharmacy of meds that cannot be crushed or opened. guaif order to be changed to liquid. per MD and pharm ok to give flomax opened and mixed with food.
--- NOTE | 2023-09-15 10:28 | PM.UROCN ---
History of Present Illness Consult details Consult date: 09/14/23 Narrative: Joaquín Esparza is a 67 years old man with past medical history significant for COPD and schizophrenia who was admitted due to decompromised mental state, poor eating. Called to evaluate do to scrotal laceration. On exam, bilateral testes palpated and there appears to be a cystic structure superiorly on the right testicle, the laceration is also noted superiorly on the right hemiscrotum, tender to palpation, no cellulitis PMFSH Past Medical History Medical History COPD (chronic obstructive pulmonary disease) Acidosis, lactic Leukocytosis Smoker in home Emphysema lung COPD (chronic obstructive pulmonary disease) Schizophrenia Right inguinal hernia Pneumonia Umbilical hernia COPD (chronic obstructive pulmonary disease) Pneumothorax COPD (chronic obstructive pulmonary disease) Family History Family History Father CAD (coronary artery disease) Surgical History Surgical History No pertinent past surgical history Social History Social History Household Members: Other Household Members Other:: roommate Housing: Other Housing Other:: hotel Do you presently have visiting nurse or other home services: No Unable to assess alcohol history related to: Unknown Alcohol intake: current Alcohol intake frequency: a few times a month Alcohol type: beer Comment: pt turned off bed alarm Patient Tobacco Use Status: Former Tobacco user Tobacco use type: Cigarette Cigarette Packs Per Day: 1 Cigarettes Per Day: 20.0 e-Cigarette/Vaping Use: Currently Using Second Hand Smoke Exposure: No Advance Directives Date on File: 05/26/22 service: Yes Current occupational status: 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 Meds Allergies Allergy/AdvReac Type Severity Reaction Status Date / Time tree and shrub pollen Allergy Mild Rash Verified 09/06/23 19:33 Active Medications: Current Medications Acetaminophen (Acetaminophen 325 Mg Tablet) 650 mg PO Q6H PRN PRN Reason: Pain, Mild (Pain Scale 1-3) Albuterol/Ipratropium (Albuterol/Iprat 2.5/0.5mg 3 Ml Ampul.Neb) 3 ml INHALE RQ4H WHILE AWAKE PRN PRN Reason: Shortness Of Breath/Wheezing Last Admin: 09/14/23 22:05 Dose: 3 ml Benzonatate (Benzonatate 100 Mg Capsule) 100 mg PO TID PRN PRN Reason: Cough Last Admin: 09/12/23 08:46 Dose: 100 mg Cyanocobalamin (Cyanocobalamin (Vitamin B-12) 500 Mcg Tablet) 500 mcg PO BID [facility] Last Admin: 09/15/23 09:35 Dose: 500 mcg Folic Acid (Folic Acid 1 Mg Tablet) 1 mg PO DAILY [facility] Last Admin: 09/15/23 09:35 Dose: 1 mg Gabapentin (Gabapentin 100 Mg Capsule) 100 mg PO BID [facility] Last Admin: 09/15/23 09:35 Dose: 100 mg Guaifenesin (Guaifenesin La 600 Mg Tab.Er.12h) 600 mg PO BID [facility] Last Admin: 09/15/23 09:24 Dose: Not Given Heparin Sodium (Porcine) (Heparin Sodium,Porcine 5,000 Unit/Ml Vial) 5,000 unit SUBCUT Q8H [facility] Last Admin: 09/15/23 08:12 Dose: Not Given Megestrol Acetate (Megestrol Acetate 400 Mg/10 Ml Oral.Susp) 200 mg PO BID [facility] Last Admin: 09/15/23 09:34 Dose: 200 mg Mirtazapine (Mirtazapine 7.5 Mg Tablet) 7.5 mg PO BEDTIME [facility] Last Admin: 09/14/23 21:48 Dose: 7.5 mg Olanzapine (Olanzapine 7.5 Mg Tablet) 15 mg PO BEDTIME [facility] Last Admin: 09/14/23 21:48 Dose: 15 mg Polyethylene Glycol (Polyethylene Glycol 3350 17 Gm Powd.Pack) 17 gm PO BID PRN PRN Reason: Constipation Psyllium Hydrophilic Mucilloid (Psyllium Seed 3.7 Gm Packet) 3.7 gm PO DAILY [facility] Last Admin: 09/15/23 09:34 Dose: 3.7 gm Sodium Chloride (0.9 % Sodium Chloride Flush 3 Ml Syringe) 3 ml IVFLUSH QSHIFT [facility] Last Admin: 09/15/23 07:42 Dose: Not Given Tamsulosin HCl (Tamsulosin Hcl 0.4 Mg Capsule) 0.8 mg PO DAILY [facility] Last Admin: 01/19/24 09:38 Dose: 0.8 mg Thiamine HCl (Thiamine Hcl 100 Mg Tablet) 100 mg PO DAILY [facility] Last Admin: 09/15/23 09:35 Dose: 100 mg Home Medications Medication Instructions Recorded Confirmed Last Taken Type acamprosate 333 mg tablet,delayed 333 mg PO TID 01/25/22 09/07/23 06/10/22 History release benzonatate 100 mg capsule 100 mg PO TID PRN Cough 01/25/22 09/07/23 Unknown History buspirone 7.5 mg tablet 7.5 mg PO BID 01/25/22 09/07/23 06/10/22 History docusate sodium 100 mg capsule 100 mg PO DAILY PRN Constipation 01/25/22 09/07/23 Unknown History fluticasone 500 mcg-salmeterol 50 1 inh inhalation BID 01/25/22 09/07/23 06/10/22 History mcg/dose blistr powdr for inhalation (Advair Diskus) folic acid 1 mg tablet 1 mg PO DAILY 01/25/22 09/07/23 06/10/22 History gabapentin 100 mg capsule 100 mg PO BID 01/25/22 09/07/23 06/10/22 History megestrol 400 mg/10 mL (10 mL) 200 mg PO BID 01/25/22 09/07/23 06/10/22 History oral suspension olanzapine 10 mg tablet 10 mg PO BEDTIME 01/25/22 09/07/23 06/10/22 History psyllium 1 tbsp PO DAILY 01/25/22 09/07/23 06/10/22 History tamsulosin 0.4 mg capsule 0.8 mg PO DAILY 01/25/22 09/07/23 06/10/22 History tiotropium bromide 2.5 2 puff inhalation DAILY 01/25/22 09/07/23 06/10/22 History mcg/actuation mist for inhalation guaifenesin 600 mg tablet, 600 mg PO BID 05/13/22 09/07/23 06/10/22 History extended release 12 hr albuterol sulfate 90 mcg/actuation 1 inh inhalation Q6H PRN Shortness 06/11/22 09/07/23 Unknown History aerosol inhaler (ProAir HFA) Of Breath Or Wheezing acetaminophen 300 mg-codeine 30 mg 1 tab PO BID PRN Pain 09/07/23 09/07/23 Unknown History tablet baclofen 10 mg tablet 10 mg PO QID PRN Muscle Spasm 09/07/23 09/07/23 Unknown History cyanocobalamin (vitamin B-12) 500 500 mcg PO BID 09/07/23 09/07/23 Unknown History mcg tablet food supplemt, lactose-reduced 1 ea PO BID 09/07/23 09/07/23 Unknown History mirtazapine 7.5 mg tablet 7.5 mg PO BEDTIME 09/07/23 09/07/23 Unknown History polyethylene glycol 3350 17 17 g PO BID PRN Constipation 09/07/23 09/07/23 Unknown History gram/dose oral powder (Miralax) prednisone 5 mg tablet 5 mg PO DAILY PRN asthma 09/07/23 09/07/23 Unknown History thiamine HCl (vitamin B1) 100 mg 100 mg PO DAILY 09/07/23 09/07/23 Unknown History tablet Physical Exam Vital Signs: Vital Signs: Last Vital Signs Temp 97.5 F 09/15/23 07:24 Pulse 87 09/15/23 07:24 Resp 18 09/15/23 07:24 BP 137/62 09/15/23 07:24 Pulse Ox 99 09/15/23 07:24 O2 Del Method Nasal Cannula 09/15/23 07:24 O2 Flow Rate 3 09/15/23 07:24 Oxygen Flow Rate 4 09/06/23 19:33 BMI result Body Mass Index 22.9 Const: General: no acute distress and well developed Orientation/consciousness: patient oriented x3 HEENT: Head: Yes normocephalic and Yes atraumatic Eyes: Conjunctivae: conjunctivae normal Neck: Neck: Yes normal visual inspection Chest: Chest palpation & inspection: normal inspection of the chest Resp: Effort & Inspection: normal respiratory effort Cardio: Rate: regular rate GI: Inspection: Yes normal to inspection Palpation (GI): Soft to palpation : Other: bilateral testes palpated and there appears to be a cystic structure superiorly on the right testicle, the laceration is also noted superiorly on the right hemiscrotum, tender to palpation, no cellulitis Penis: normal penis Neuro: General: patient oriented x3 Extrem: General: No pedal edema Psych: Appearance: grossly normal Results Labs 09/10/23 07:38 09/10/23 07:38 Labs: Urine 09/07/23 Range/Units 01:29 Urine Color Yellow Urine Appearance Clear Urine pH 6.5 (5.0-9.0) Ur Specific [place] >= 1.030 H (1.005-1.025) Urine Protein Negative (Neg-Trace) mg/dL Urine Glucose (UA) Negative (Negative) mg/dL All other labs normal. Assessment and Plan (1) Scrotal trauma: Qualifiers: Encounter type: initial encounter Qualified Code(s): S39.94XA - Unspecified injury of external genitals, initial encounter Status: Acute (2) Laceration of scrotum: Status: Acute (3) Scrotal cyst: Status: Acute Plan Xeroform m patch covered by gauge to keep in place scrotal US Procedures Date of Service Date of Service: 09/15/23
[2023-09-15 11:25] VITALS: BP 104/58; PULSE 96; RESP 20; TEMP 36.4; O2SAT 99
--- NOTE | 2023-09-15 11:37 | P.PNIM_ITS ---
Subjective Subjective Date of Service: 09/15/23 Interval History: Doing well, no respiratory distress, no other complaint Physical Exam 2 Vital Signs: Vital Signs: Last Vital Signs Temp 97.6 F 09/15/23 11:25 Pulse 96 09/15/23 11:25 Resp 20 09/15/23 11:25 BP 104/58 L 09/15/23 11:25 Pulse Ox 99 09/15/23 11:25 O2 Del Method Nasal Cannula 09/15/23 11:25 O2 Flow Rate 2 09/15/23 11:25 Oxygen Flow Rate 4 09/06/23 19:33 BMI result Body Mass Index 22.9 : Other: bilateral testes palpated and there appears to be a cystic structure superiorly on the right testicle, the laceration is also noted superiorly on the right hemiscrotum, tender to palpation, no cellulitis Objective Data Active Medications Acetaminophen (Acetaminophen 325 Mg Tablet) 650 mg PO Q6H PRN PRN Reason: Pain, Mild (Pain Scale 1-3) Albuterol/Ipratropium (Albuterol/Iprat 2.5/0.5mg 3 Ml Ampul.Neb) 3 ml INHALE RQ4H WHILE AWAKE PRN PRN Reason: Shortness Of Breath/Wheezing Last Admin: 09/14/23 22:05 Dose: 3 ml Documented By: GEO Benzonatate (Benzonatate 100 Mg Capsule) 100 mg PO TID PRN PRN Reason: Cough Last Admin: 09/12/23 08:46 Dose: 100 mg Documented By: ALEXA Cyanocobalamin (Cyanocobalamin (Vitamin B-12) 500 Mcg Tablet) 500 mcg PO BID [facility] Last Admin: 09/15/23 09:35 Dose: 500 mcg Documented By: ROBINA Folic Acid (Folic Acid 1 Mg Tablet) 1 mg PO DAILY [facility] Last Admin: 09/15/23 09:35 Dose: 1 mg Documented By: ROBINA Gabapentin (Gabapentin 100 Mg Capsule) 100 mg PO BID [facility] Last Admin: 09/15/23 09:35 Dose: 100 mg Documented By: ROBINA Guaifenesin (Guaifenesin La 600 Mg Tab.Er.12h) 600 mg PO BID [facility] Last Admin: 09/15/23 09:24 Dose: Not Given Documented By: ROBINA Non-Admin Reason: cant crush Heparin Sodium (Porcine) (Heparin Sodium,Porcine 5,000 Unit/Ml Vial) 5,000 unit SUBCUT Q8H [facility] Last Admin: 09/15/23 08:12 Dose: Not Given Documented By: ROBINA Non-Admin Reason: Patient Refused Megestrol Acetate (Megestrol Acetate 400 Mg/10 Ml Oral.Susp) 200 mg PO BID [facility] Last Admin: 09/15/23 09:34 Dose: 200 mg Documented By: ROBINA Mirtazapine (Mirtazapine 7.5 Mg Tablet) 7.5 mg PO BEDTIME [facility] Last Admin: 09/14/23 21:48 Dose: 7.5 mg Documented By: GAGAN Olanzapine (Olanzapine 7.5 Mg Tablet) 15 mg PO BEDTIME [facility] Last Admin: 09/14/23 21:48 Dose: 15 mg Documented By: GAGAN Polyethylene Glycol (Polyethylene Glycol 3350 17 Gm Powd.Pack) 17 gm PO BID PRN PRN Reason: Constipation Psyllium Hydrophilic Mucilloid (Psyllium Seed 3.7 Gm Packet) 3.7 gm PO DAILY [facility] Last Admin: 09/15/23 09:34 Dose: 3.7 gm Documented By: ROBINA Sodium Chloride (0.9 % Sodium Chloride Flush 3 Ml Syringe) 3 ml IVFLUSH QSHIFT [facility] Last Admin: 09/15/23 07:42 Dose: Not Given Documented By: ROBINA Non-Admin Reason: See Note Tamsulosin HCl (Tamsulosin Hcl 0.4 Mg Capsule) 0.8 mg PO DAILY [facility] Last Admin: 09/15/23 09:38 Dose: 0.8 mg Documented By: ROBINA Thiamine HCl (Thiamine Hcl 100 Mg Tablet) 100 mg PO DAILY [facility] Last Admin: 09/15/23 09:35 Dose: 100 mg Documented By: ROBINA Labs 09/10/23 07:38 09/10/23 07:38 Assessment and Plan (1) Schizophrenia: Status: Acute (2) Pneumonia: Status: Acute Plan This is a 67 years old male with history of chronic respiratory failure/COPD on 4 L of supplemental oxygen, it, tobacco dependence fountain on Section 12 as the patient has reportedly been doing poorly over the past several weeks and has been having increasing paranoia, decreased p.o. intake and weight loss. Acute on chronic respiratory failure with hypoxia/COPD ex, resolved. -bronchodilators PRN -DC steroid -O2 gaol of 88 to 92 Community-acquired pneumonia with concern for aspiration PNA as well was on Azithro + ceftriaxone, Unassyn added 09/09. -Changed to Augmentin on 09/11 for total 7 days, completed course Schizophrenia, admitted under section 12 -continue Olanzapine at increased dose of 10 to 15 at hs by Psych recommendation dysphagia--RUBBER TRIMMER recommend NDD2+[place] thick liquid hypokalemia--resolved, last K 4.7, nl mag Leukocytosis due to steroid Acute lactic acidosis--not due to sepsis, lkely from hypoxia Anemia, chronic. Continue to monitor hemoglobin. Mild protein calory malnutrition, poor intake, and aspiration on water speech to reassess tomorrow Scrotal laceration--see uro consult, US to better assess VTE prophylaxis: Heparin subcu Code status: Presumed full code. 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
--- NOTE | 2023-09-15 11:56 | MHC.SL.SWA ---
Speech Pathologist Impression: Risk of aspiration, oropharyngeal dysphagia Risk of Aspiration Due to: Medically Fragile History of Pneumonia Dysphasia Diet Status: Continue on Ground Mechanical Altered and HONEY THICK liquids, pills crushed in puree. Liquid Consistency and Strategies for Safe Swallow: Liquid Intake Recommendation: Honey Thick Liquid Intake Strategies: No Straws Solid Food Consistency: Dietary Recommendations: Grnd/Mech Altered (NDD2) Additional Modifications to Solid Foods: Avoid mixed textures, thin gravies. Patient eats rapidly and may need cues to slow down. Patient will request water, can only have HONEY THICK consistency. Oral Medication Intake: Crushed with Puree Please contact the pharmacy regarding appropriate crushable or liquid drug formulations that are available whenever modified delivery is recommended. Compensatory Strategies and Precautions to be Taken for Safe Swallow: Sitting Upright (90 deg) No Straw Liquids from Cup Small Bites and Sips Alternate Liquids/Solids Supervision While Eating and Drinking for Safe Swallow: Total Supervision (1:1) Foods to Avoid: Avoid sticky or hard foods; mixed consistencies (i.e. thin broth soup with solid ingredients) Swallowing Recommended Treatments: Compens. Strategy Educat. Recommendation for Speech: Inpatient Speech Therapy Speech Therapy through Rehab Facility Modified Barium Swallow Study - Outpatient Comment: Pt had MBSS 09/13/23: Intake Recommendations: Route: PO Diet Grade: Mechanical Soft Liquid Consistencies: Honey Post-Study Functional Oral Intake Scale (FOIS): 5- Total oral intake of multiple consistencies requiring special preparation Pt presents with moderate oropharyngeal dysphagia, marked by delayed and disorganized oral phase, incomplete laryngeal elevation and partial epiglottic inversion. Evidence of aspiration during the swallow on thin liquid, to which pt elicited a cough but did not clear contrast from the airway. Evidence of penetration above and to the level of the vocal folds with nectar thick, honey thick, pureed, and mixed consistencies. Pt was instructed to clear his throat and re-swallow on each bolus which then cleared the contrast from the airway. Moderate level of residuals mostly in the valleculae. Pharyngeal retention was reduced with an additional dry swallows. Recommend UPGRADE from NPO, START on GROUND/MECH ALTERED (NDD2) diet and HONEY THICK liquids. Given pt?s impulsivity when feeding himself, it is CRUCIAL he be directly supervised and cued as needed. Following strategies are recommended to maximize feeding safety: -Liquids via teaspoon or individual cup sips -Avoid the use of straws -No chain sipping -After taking a sip, clear throat, then re-swallow -Avoid sticky or hard foods; mixed consistencies (i.e. thin broth soup with solid ingredients) -Take small bites, one bite at a time -After swallowing bite of food, follow with an additional dry swallow -Maintain 90 degree position during PO intake and for at least 30-45 minutes afterwards -Oral care before first meal and after each subsequent meal Therapy Recommendations: Therapy will be continued, [employer] will continue to follow during hospitalization to provide dysphagia treatment. Strongly recommend continued speech therapy for dysphagia at the next level of care post-discharge. The following compensatory strategies and/or therapeutic exercises will be part of the upcoming therapy/management plan: Honey-thick Liquid Bolus Volume Change Rate of Ingestion Change Additional Swallow(s) per Bolus Throat Clear Prognosis for Improvement: The prognosis for the patient to meet nutritional needs by mouth is fair based on degree of impairment, stimulability for treatment. Custodial Goals: ? The patient will tolerate the least restrictive diet with a safe/efficient swallow to maintain adequate nutrition and hydration. ? The patient and/or family will participate in further education for swallowing goals. Short Term Goals: ? Diet - The patient will tolerate a mechanical soft diet with honey thick liquids without signs or symptoms of penetration/aspiration 100% of the time. - The patient will participate in therapeutic PO trials with the [employer]. ? Guidelines - The patient will comply with/recall the following guidelines/strategies 100% of the time with moderate cuing: Honey-thick Liquid, Bolus Volume Change, Rate of Ingestion Change, Additional Swallow(s) per Bolus, Throat Clear, No Straws. ? Education - The patient, caregiver will verbalize/demonstrate understanding of the results of this evaluation, the above recommendations, and the swallowing guidelines. Frequency/Duration: M-F PRN Date Range for Service Req: Timeline to reassess: 3 months Roller Man Clinican/Clinical Fellow: No Supervisory Statement: I have reviewed and agree with the student/clinical fellow's documentation: N/A Speech Language Pathologist: Vania Pickett M.A., [facility]-[employer]
--- NOTE | 2023-09-15 14:33 | MHC.CM.PN ---
Second IMM 09/15. Pt is medically cleared for D/C. Auth obtained from [place] for pt to go to [facility]. [place] has arranged for his transport via BLS at 4pm today. Pts sister/HCP Ana Hackett updated.
[2023-09-15 15:12] VITALS: BP 112/58; PULSE 90; RESP 20; TEMP 36.8; O2SAT 99
--- NOTE | 2023-09-15 15:14 | MHC.CM.PN ---
Per MD, pts US results back, the Urologist is now requesting a nuclear scan. Per hospitalist, D/C is cancelled for today. [facility] and pts sister/HCP Ana Hackett on the cancellation of his D/C today.
--- NOTE | 2023-09-15 16:29 | P.PNUR_ITS ---
Subjective Subjective Date of Service: 09/15/23 Interval history: Abnormal US findings discussed with Radiologist. Nuclear medicine study ordered stat. On exam-clinically there is no evidence of torsion. No significant tenderness to palpation. In the scrotum there are three structures, 2 structures are c/w right and left testes with palpation of the cord on each side and a superior lying structure in the right hemiscrotum which it is unclear exact etiology mass vs cystic vs acessory testicle. No cellulitis, no significant tenderness, laceration unchanged to right hemiscrotum superiorly. Physical Exam 2 Vital Signs: Vital Signs: Last Vital Signs Temp 98.2 F 09/15/23 15:12 Pulse 90 09/15/23 15:12 Resp 20 09/15/23 15:12 BP 112/58 L 09/15/23 15:12 Pulse Ox 99 09/15/23 15:12 O2 Del Method Nasal Cannula 09/15/23 15:12 O2 Flow Rate 4 09/15/23 15:12 Oxygen Flow Rate 4 09/06/23 19:33 BMI result Body Mass Index 22.9 Urology Results Labs 09/10/23 07:38 09/10/23 07:38 Labs: Date of Service: 09/15/23 EXAMINATION: Scrotal ultrasound CLINICAL INFORMATION: Scrotal cyst COMPARISON: Previous CT scans of the abdomen and pelvis most recent September 2022 TECHNIQUE: Grayscale and color imaging of the testicles FINDINGS: Right: Right testicle is larger than the left and measures 3.8 x 2.1 x 3.3 cm, volume 8 mL. The left testicle is hypoechoic compared to the other testicles and is slightly heterogeneous in echotexture. There is significant decreased arterial and venous flow in the right testicle compared to the other testicles. There are small calcifications in the right testicle. No small right epididymal head cyst measuring 6 x 6 x 5 mm. The right epididymis is otherwise normal. There is no right hydrocele or varicocele. There appears to be an accessory testicle in the midline between the right and left testicles, favored to originate on the right based on cine transverse images series 2. This measures 3.2 x 1.6 x 2.6 cm, volume 7 mL. This has normal echotexture. No focal lesion. This has normal flow. Left: Left testicle measures 3.1 x 1.5 x 2.6 cm, volume 6.3 mL. Left testicle echotexture is normal. There are small calcifications. No other focal lesion. Arterial and venous flow is documented to the left testicle and is normal. There is a complex cyst with multiple septations seen adjacent to the left epididymis probably representing an epididymal complex cyst or septated hydrocele. This measures 2.5 x 2.2 x 1.3 cm. There is no left varicocele. IMPRESSION: Abnormal right testicle which is enlarged, hypoechoic and slightly heterogeneous in attenuation. This demonstrates decreased flow compared to the other testicles. Differential would include torsion, mass and infectious or inflammatory process. Follow-up nuclear medicine scrotal scan should be considered to exclude torsion. Small bilateral testicular calcifications. Accessory testicle as described above, favored to originate on the right. Complex multiloculated cyst in the left scrotum measuring 2.5 x 2.2 x 1.3 cm. Differential would include an epididymal cyst and loculated complex hydrocele. Progress Note: A&P Assessment and plan (1) Abnormal finding on ultrasound: Status: Acute Assessment and Plan: possible acessory testicle vs cystic structure vs testicular mass (2) Laceration of scrotum: Status: Acute Plan Nuclear scan testicles ordered. Above discussed with on-call Urology and hospitalist Time Spent With Patient Time: Total time managing care of this patient today ____ minutes. Progress Note: Quality Stroke Does the patient have a stroke diagnosis?: No
[2023-09-15 19:26] VITALS: BP 148/66; PULSE 100; RESP 19; TEMP 36.2; O2SAT 98
[2023-09-15] MEDS: Mirtazapine 7.5 MG TABLET PO (22:44)
[2023-09-15] MEDS: OLANZapine 7.5 MG TABLET 15 MG PO (22:44)
[2023-09-15] MEDS: Heparin Sodium,Porcine 5,000 UNIT/ML VIAL 5000 UNIT SUBCUT (22:44)
[2023-09-15] MEDS: guaiFENesin LA 600 MG TAB.ER.12H PO (22:44)
[2023-09-15 23:42] VITALS: BP 155/66; PULSE 95; RESP 18; TEMP 35.9; O2SAT 96
[2023-09-16] VITALS (7 sets, daily range): BP systolic 86–156; BP diastolic 50–94; PULSE 76–112; RESP 16–24; TEMP 36–37.3; O2SAT 92–100
[2023-09-16] MEDS: Heparin Sodium,Porcine 5,000 UNIT/ML VIAL 5000 UNIT SUBCUT ×3 (05:29→20:37)
[2023-09-16] MEDS: Acetaminophen 325 MG TABLET 650 MG PO ×2 (06:26→16:59)
[2023-09-16] MEDS: 0.9 % Sodium Chloride Flush 3 ML SYRINGE IVFLUSH ×3 (08:07→20:38)
[2023-09-16] MEDS: Psyllium seed 3.7 GM PACKET PO (08:07)
[2023-09-16] MEDS: Cyanocobalamin (Vitamin B-12) 500 MCG TABLET PO ×2 (08:08→20:37)
[2023-09-16] MEDS: Tamsulosin HCL 0.4 MG CAPSULE 0.8 MG PO (08:08)
[2023-09-16] MEDS: Folic Acid 1 MG TABLET PO (08:08)
[2023-09-16] MEDS: guaiFENesin LA 600 MG TAB.ER.12H PO ×2 (08:08→20:37)
[2023-09-16] MEDS: Thiamine HCL 100 MG TABLET PO (08:08)
[2023-09-16] MEDS: Gabapentin 100 MG CAPSULE PO ×2 (08:08→20:37)
[2023-09-16] MEDS: Megestrol Acetate 400 MG/10 ML ORAL.SUSP 200 MG PO ×2 (10:50→20:37)
[2023-09-16] MEDS: Albuterol/Iprat 2.5/0.5MG 3 ML AMPUL.NEB INHALE ×2 (10:59→22:52)
--- NOTE | 2023-09-16 14:39 | MHC.CM.PN ---
PER MD PATIENT IS MEDICALLY CLEARED FOR DC. HOWEVER, [facility] OVER [facility] WEEKEND DUE TO STAFFING AND PHARMACY DELIVERY (WILL NOT BE ABLE TO GET MEDS UNTIL MONDAY). SPOKE WITH LIYAH REED [phone], WHO CONFIRMS THEY CAN ACCEPT ON MONDAY. [facility] BRIANNA AWARE. CM WILL CONTINUE TO FOLLOW.
[2023-09-16 20:23] LABS: Glucose, Whole Blood 113 mg/dL (60-115)
[2023-09-16] MEDS: Mirtazapine 7.5 MG TABLET PO (20:37)
[2023-09-16] MEDS: OLANZapine 7.5 MG TABLET 15 MG PO (20:37)
[2023-09-17] VITALS (7 sets, daily range): BP systolic 137–156; BP diastolic 62–70; PULSE 99–102; RESP 17–24; TEMP 36.5–37.1; O2SAT 94–100
[2023-09-17] MEDS: Albuterol/Iprat 2.5/0.5MG 3 ML AMPUL.NEB INHALE (02:55)
[2023-09-17] MEDS: Heparin Sodium,Porcine 5,000 UNIT/ML VIAL 5000 UNIT SUBCUT ×3 (05:39→21:00)
--- NOTE | 2023-09-17 08:26 | HO.PM.IMPN ---
Subjective Subjective Date of Service: 09/17/23 Interval History: Doing well, no respiratory distress, no other complaint Physical Exam Vital Signs: Vital Signs: Last Vital Signs Temp 98.7 F 09/17/23 02:57 Pulse 99 09/17/23 02:57 Resp 20 09/17/23 04:00 BP 137/62 09/17/23 02:57 Pulse Ox 99 09/17/23 04:00 O2 Del Method Nasal Cannula 09/17/23 04:00 O2 Flow Rate 4 09/17/23 02:57 Oxygen Flow Rate 4 09/06/23 19:33 BMI result Body Mass Index 22.9 Const: Other: General: AO X 2, no acute distress Resp: CTA bilateral CVS: S1,S2,RRR GI: +BS, NT, no distention Skin: No rash Neuro: motor grossly intact Psych: appropriate affect Objective Data Active Medications Acetaminophen (Acetaminophen 325 Mg Tablet) 650 mg PO Q6H PRN PRN Reason: Pain, Mild (Pain Scale 1-3) Last Admin: 09/16/23 16:59 Dose: 650 mg Documented By: ELVIA Albuterol/Ipratropium (Albuterol/Iprat 2.5/0.5mg 3 Ml Ampul.Neb) 3 ml INHALE RQ4H WHILE AWAKE PRN PRN Reason: Shortness Of Breath/Wheezing Last Admin: 09/17/23 02:55 Dose: 3 ml Documented By: HALLIE Benzonatate (Benzonatate 100 Mg Capsule) 100 mg PO TID PRN PRN Reason: Cough Last Admin: 09/12/23 08:46 Dose: 100 mg Documented By: ALEXA Cyanocobalamin (Cyanocobalamin (Vitamin B-12) 500 Mcg Tablet) 500 mcg PO BID [facility] Last Admin: 09/16/23 20:37 Dose: 500 mcg Documented By: SHIMA Folic Acid (Folic Acid 1 Mg Tablet) 1 mg PO DAILY [facility] Last Admin: 09/16/23 08:08 Dose: 1 mg Documented By: ELVIA Gabapentin (Gabapentin 100 Mg Capsule) 100 mg PO BID [facility] Last Admin: 09/16/23 20:37 Dose: 100 mg Documented By: SHIMA Guaifenesin (Guaifenesin La 600 Mg Tab.Er.12h) 600 mg PO BID [facility] Last Admin: 09/16/23 20:37 Dose: 600 mg Documented By: SHIMA Heparin Sodium (Porcine) (Heparin Sodium,Porcine 5,000 Unit/Ml Vial) 5,000 unit SUBCUT Q8H [facility] Last Admin: 09/17/23 05:39 Dose: 5,000 unit Documented By: SHIMA Megestrol Acetate (Megestrol Acetate 400 Mg/10 Ml Oral.Susp) 200 mg PO BID [facility] Last Admin: 09/16/23 20:37 Dose: 200 mg Documented By: SHIMA Mirtazapine (Mirtazapine 7.5 Mg Tablet) 7.5 mg PO BEDTIME [facility] Last Admin: 09/16/23 20:37 Dose: 7.5 mg Documented By: SHIMA Olanzapine (Olanzapine 7.5 Mg Tablet) 15 mg PO BEDTIME [facility] Last Admin: 09/16/23 20:37 Dose: 15 mg Documented By: SHIMA Polyethylene Glycol (Polyethylene Glycol 3350 17 Gm Powd.Pack) 17 gm PO BID PRN PRN Reason: Constipation Psyllium Hydrophilic Mucilloid (Psyllium Seed 3.7 Gm Packet) 3.7 gm PO DAILY [facility] Last Admin: 09/16/23 08:07 Dose: 3.7 gm Documented By: ELVIA Sodium Chloride (0.9 % Sodium Chloride Flush 3 Ml Syringe) 3 ml IVFLUSH QSHIFT [facility] Last Admin: 09/16/23 20:38 Dose: 3 ml Documented By: SHIMA Tamsulosin HCl (Tamsulosin Hcl 0.4 Mg Capsule) 0.8 mg PO DAILY [facility] Last Admin: 09/16/23 08:08 Dose: 0.8 mg Documented By: ELVIA Thiamine HCl (Thiamine Hcl 100 Mg Tablet) 100 mg PO DAILY [facility] Last Admin: 09/16/23 08:08 Dose: 100 mg Documented By: EVLIA Labs 09/10/23 07:38 09/10/23 07:38 Labs: Laboratory Results - last 24 hr 09/16/23 20:18 POC Glucose 113 Assessment and Plan (1) Schizophrenia: Status: Acute Plan This is a 67 years old male with history of chronic respiratory failure/COPD on 4 L of supplemental oxygen, it, tobacco dependence fountain on [address] as the patient has reportedly been doing poorly over the past several weeks and has been having increasing paranoia, decreased p.o. intake and weight loss. Acute on chronic respiratory failure with hypoxia/COPD ex, resolved. -completed course of steroid -Bronchodilators as needed Community-acquired pneumonia with concern for aspiration PNA as well was on Azithro + ceftriaxone, Unassyn added 09/09. -Changed to Augmentin on 09/11 for total 7 days, completed course Schizophrenia, admitted under section 12 -continue Olanzapine at increased dose of 10 to 15 at hs by Psych recommendation dysphagia--[employer] recommend NDD2+[place] thick liquid hypokalemia--resolved, last K 4.7, nl mag Leukocytosis due to steroid Acute lactic acidosis--not due to sepsis, lkely from hypoxia Anemia, chronic. Continue to monitor hemoglobin. Mild protein calory malnutrition, poor intake, and aspiration on water speech to reassess tomorrow Scrotal laceration--see uro consult, US to better assess--> ? accesory testicle vs cystic structure, nuclear imaging ? mass or torsion, clinically not present VTE prophylaxis: Heparin subcu Code status: Presumed full code. dispo: Patient deemed unfit to leave alone, HCP invoked and will need senior living placement, CM aware, PT recommends STR/possible longterm care need for inpt: awaiting placment, SNF not able to take till monday Quality Stroke Does the patient have a stroke diagnosis?: No VTE Prior VTE?: No VTE Risk Level:: Medical - moderate - high VTE Device Contraindication: Treatment Not Indicated VTE Drug Contraindication: N/A - Med Ordered
[2023-09-17] MEDS: Thiamine HCL 100 MG TABLET PO (08:44)
[2023-09-17] MEDS: Cyanocobalamin (Vitamin B-12) 500 MCG TABLET PO ×2 (08:44→20:59)
[2023-09-17] MEDS: Gabapentin 100 MG CAPSULE PO ×2 (08:44→20:59)
[2023-09-17] MEDS: Psyllium seed 3.7 GM PACKET PO (08:44)
[2023-09-17] MEDS: guaiFENesin LA 600 MG TAB.ER.12H PO ×2 (08:44→20:59)
[2023-09-17] MEDS: Tamsulosin HCL 0.4 MG CAPSULE 0.8 MG PO (08:44)
[2023-09-17] MEDS: 0.9 % Sodium Chloride Flush 3 ML SYRINGE IVFLUSH ×2 (08:45→21:00)
[2023-09-17] MEDS: Megestrol Acetate 400 MG/10 ML ORAL.SUSP 200 MG PO ×2 (08:45→20:59)
[2023-09-17] MEDS: Folic Acid 1 MG TABLET PO (08:45)
[2023-09-17] MEDS: OLANZapine 7.5 MG TABLET 15 MG PO (20:59)
[2023-09-17] MEDS: Mirtazapine 7.5 MG TABLET PO (20:59)
[2023-09-18] VITALS: BP 159/74; PULSE 102; RESP 20; TEMP 36.8; O2SAT 97
[2023-09-18] MEDS: Albuterol/Iprat 2.5/0.5MG 3 ML AMPUL.NEB INHALE (02:33)
[2023-09-18 02:35] VITALS: PULSE 102; RESP 20; O2SAT 96
[2023-09-18 04:00] VITALS: BP 156/72; PULSE 106; RESP 20; TEMP 36.7; O2SAT 98
[2023-09-18] MEDS: Heparin Sodium,Porcine 5,000 UNIT/ML VIAL 5000 UNIT SUBCUT ×2 (04:40→11:44)
[2023-09-18 07:35] VITALS: BP 135/85; PULSE 123; RESP 18; TEMP 35.8; O2SAT 94
[2023-09-18] MEDS: Megestrol Acetate 400 MG/10 ML ORAL.SUSP 200 MG PO (08:16)
[2023-09-18] MEDS: 0.9 % Sodium Chloride Flush 3 ML SYRINGE IVFLUSH (08:17)
[2023-09-18] MEDS: guaiFENesin LA 600 MG TAB.ER.12H PO (08:17)
[2023-09-18] MEDS: Gabapentin 100 MG CAPSULE PO (08:17)
[2023-09-18] MEDS: Tamsulosin HCL 0.4 MG CAPSULE 0.8 MG PO (08:17)
[2023-09-18] MEDS: Thiamine HCL 100 MG TABLET PO (08:17)
[2023-09-18] MEDS: Folic Acid 1 MG TABLET PO (08:17)
[2023-09-18] MEDS: Psyllium seed 3.7 GM PACKET PO (08:17)
[2023-09-18] MEDS: Cyanocobalamin (Vitamin B-12) 500 MCG TABLET PO (08:17)
--- NOTE | 2023-09-18 09:49 | MHC.CM.PN ---
Addendum entered by Joaquina Snow 09/18/23 14:47: [facility] CM CALLED YASEMIN AT THE AND INFORMED HER THE PT IS EN ROUTE SHE IS ARE PT HAS HAD ANXIETY ISSUES AND THEY WILL HAVE MEDICATION ON HAND IN CASE HE NEEDS IT ON ARRIVAL DCS SENT VIA [facility] Addendum entered by Joaquina Snow 09/18/23 14:06: PT PRESENTING WITH ANXIETY WHEN AMBULANCE ARRIVED. AMBULANCE RESCHEDULED FOR 1430 HOURS CM MET WITH PT WHO UNDERSTANDS HE IS GOING TO A REHAB AND THAT HIS SISTER IS GOING TO BE THERE SIGNING HIM IN HE REPORTS HE HAS ANXIETY AND WANTS TO STAY AT THE HOSPITAL WHERE HE FEELS SAFER CM EXPLAINED THERE WILL BE MEDICAL STAFF THERE WELL AND REHAB IS HIS BEST CHANCE TO IMPROVE HIS CONDITION PT ASKS THAT T/W STAY AND HOLD HIS HAND CM WILL BE BEDSIDE AT [place] AND WALK PT OUT HE WAS ALSO ASSURED SOMEONE WOULD BE IN THE AMBULANCE WITH HIM DURING TRANSPORT Addendum entered by Joaquina Snow 09/18/23 11:06: TRANSPORT BOOKED BY THE [facility] FOR 1130 WITH ALERT AMBULANCE CM INFORMED PT IS UPSET, HYPERVENTILATING AND SAYING HE IS NOT GOING CM CALLED PT SISTER/INVOKED HCP, CHRISTINE FERRER [phone] WHO REPORTS SHE WILL CALL HIM AND TRY TO CALM HIM DOWN HOWEVER SHE STATES HE WILL HAVE A HARD TIME NO MATTER WHAT SO SHOULD JUST BE SENT RN WILL PROVIDE ANXIETY MEDS ORDERED AND BLS TRANSPORT MOVED TO 1330 HOURS Original Note: PT SET TO DC TO [facility] TODAY JAS SPOKE TO YASEMIN LIAISON SHE IS AWARE [facility]SP[facility] WITH [facility] UPDATES WERE SENT TO SNF [facility] CM SPOKE TO LOPE[facility] AT [facility], SHE WILL ATTEMPT TO BOOK TRANSPORT FOR 1130 HOURS AND CONFIRM WITH JAS
[2023-09-18 09:58] VITALS: PULSE 118; TEMP 36.3
[2023-09-18] MEDS: LORazepam 0.5 MG TABLET 0.25 MG PO (11:44)
[2023-09-18 12:00] VITALS: BP 148/71; PULSE 119; RESP 20; TEMP 36.1; O2SAT 96
[2023-09-18] MEDS: Morphine Sulfate 2 MG/ML CARTRIDGE 1 MG IVPUSH (14:07)
== END 2023-09-18 14:45 | disposition skilled nursing facility (03) | DRG 177 ==
LOC: HO.ED 09-07 00:14 → HO.EDOVER 09-07 00:49 → HO.IMC 09-07 19:34 → HO.S3 09-15 18:18
PROVIDERS: Physician Assistant; Physician Assistant Medical; Admitting Provider Internal Medicine; Emergency Provider Emergency Medicine; PCP Physician Assistant Medical; Visit Provider Internal Medicine
DX: J69.0 Pneumonitis due to inhalation of food and vomit (principal); J96.21 Acute and chronic respiratory failure with hypoxia; E87.21 Acute metabolic acidosis; Z59.01 Sheltered homelessness; E44.1 Mild protein-calorie malnutrition; S31.31XA Laceration without foreign body of scrotum and testes, initial encounter; R93.89 Abnormal findings on diagnostic imaging of other specified body structures; X58.XXXA Exposure to other specified factors, initial encounter; D64.9 Anemia, unspecified; Z99.81 Dependence on supplemental oxygen; R13.10 Dysphagia, unspecified; E87.6 Hypokalemia; J43.9 Emphysema, unspecified; F20.9 Schizophrenia, unspecified; Z68.22 Body mass index [BMI] 22.0-22.9, adult; Z20.822 Contact with and (suspected) exposure to COVID-19; Z87.891 Personal history of nicotine dependence; Z79.51 Long term (current) use of inhaled steroids; Z79.899 Other long term (current) drug therapy
CPT/HCPCS: 0241U; 36415; 36600; 71045; 71260; 74230; 76870; 78761; 80048; 80053; 80076; 80307; 81003; 82803; 82947; 83605; 83735; 83880; 85025; 85027; 86140; 87040; 92526; 92610; 92611; 93005; 97162; 99285; A9512; J0295; J0456; J0696; J1630; J1644; J2270; J2920; J7120; Q9967; S9485

== ENCOUNTER → 2023-09-06 19:38 | Outpatient (BNV) | payer MEDICARE, BC, SELFPAY | PROVIDERS: Admitting Provider Internal Medicine; Emergency Provider Emergency Medicine; PCP Physician Assistant Medical; Visit Provider Internal Medicine Cardiovascular Disease | DX: R06.02 Shortness of breath (principal) | CPT/HCPCS: 93010 ==

== ENCOUNTER 2023-09-07 00:45 | Outpatient (BNV) | payer MEDICARE, BC, SELFPAY | END 2023-09-07 12:31 | PROVIDERS: Admitting Provider Internal Medicine; Emergency Provider Emergency Medicine; PCP Physician Assistant Medical; Visit Provider Internal Medicine Cardiovascular Disease | DX: I47.10 Supraventricular tachycardia, unspecified (principal) | CPT/HCPCS: 93010 ==

== ENCOUNTER 2023-09-07 00:45 | Outpatient (BNV) | payer OTHER, BC, SELFPAY | END 2023-09-13 13:32 | PROVIDERS: Admitting Provider Internal Medicine; Emergency Provider Emergency Medicine; PCP Physician Assistant Medical; Visit Provider Radiology Diagnostic Radiology | DX: R13.10 Dysphagia, unspecified (principal) | CPT/HCPCS: 74230 ==

== ENCOUNTER → 2023-09-07 00:45 | Outpatient (BNV) | payer MEDICARE, BC, SELFPAY | PROVIDERS: Admitting Provider Internal Medicine; Emergency Provider Emergency Medicine; PCP Physician Assistant Medical; Visit Provider Social Worker | DX: F20.0 Paranoid schizophrenia (principal) | CPT/HCPCS: 99232; 99499 ==

== ENCOUNTER → 2023-09-07 00:45 | Outpatient (BNV) | payer OTHER, BC, SELFPAY | PROVIDERS: Admitting Provider Internal Medicine; Emergency Provider Emergency Medicine; PCP Physician Assistant Medical; Visit Provider Surgery | DX: S31.30XA Unspecified open wound of scrotum and testes, initial encounter (principal) | CPT/HCPCS: 99222 ==

== ENCOUNTER → 2023-09-07 00:45 | Outpatient (BNV) | payer MEDICARE, BC, SELFPAY | PROVIDERS: Admitting Provider Internal Medicine; Emergency Provider Emergency Medicine; Visit Provider Internal Medicine | DX: J18.9 Pneumonia, unspecified organism (principal); J44.9 Chronic obstructive pulmonary disease, unspecified; F20.9 Schizophrenia, unspecified | CPT/HCPCS: 99223; 99232; 99239; 99499 ==

== ENCOUNTER → 2023-09-07 00:45 | Outpatient (BNV) | payer OTHER, BC, SELFPAY | PROVIDERS: Admitting Provider Internal Medicine; Emergency Provider Emergency Medicine; PCP Physician Assistant Medical; Visit Provider Urology | DX: S39.94XA Unspecified injury of external genitals, initial encounter (principal); S31.31XA Laceration without foreign body of scrotum and testes, initial encounter; L72.9 Follicular cyst of the skin and subcutaneous tissue, unspecified; R93.89 Abnormal findings on diagnostic imaging of other specified body structures | CPT/HCPCS: 99222 ==